=== PATIENT | female | born 1980 | race Caucasian/White ===

== ENCOUNTER → 2018-03-18 15:31 | Outpatient (CLI) | payer BC, SELFPAY ==
[2018-03-18 17:37] LABS: Absolute Lymphocyte Count 1.31 X10^3/ul (0.83-4.51); Absolute Neutrophil Count 3.2 X10^3/uL (2.0-7.7); Basophil# 0.05 X10^3/uL; Basophil% 0.9 % (0-1); Eosinophil# 0.13 X10^3/uL; Eosinophils% 2.4 % (0-5); Hematocrit 41.1 % (37-47); Hemoglobin 13.4 g/dl (12.0-15.0); Lymphocyte # 1.31 X10^3/ul (4.0); Lymphocyte % 24.1 % (19-41); Mean Corp Hgb Conc 32.6 g/gl (32-36); Mean Corpuscular Hgb 29.3 pg (27.0-32.0); Mean Corpuscular Volume 89.7 fL (81-99); Mean Platelet Vol. 12.7 fl (6.2-12.0); Monocyte# 0.74 X10^3/uL; Monocyte% 13.6 % (0-10); Platelet Count 289 K/mm3 (150-450); RBC Distribution Width CV 12.9 % (11.6-14.6); Red Blood Count 4.58 M/mm3 (4.2-5.4); White Blood Count 5.4 K/mm3 (4.4-11.0)
[2018-03-18 17:44] LABS: POSITIVE COUNT NO; POSITIVE DIFFERENTIAL NO; POSITIVE MORPHOLOGY NO
[2018-03-18 18:00] LABS: Vitamin D,25 Hydroxy 37.5 ng/mL (29.95-100.01)
[2018-03-18 18:35] LABS: Anion Gap 8 (5-15); BUN 6 mg/dL (7-18); BUN/Creat Ratio 9.5 RATIO (10-20); Calcium,Total 9.6 mg/dL (8.5-10.1); Chloride 106 mmol/L (98-107); Creatinine, Serum 0.63 mg/dL (0.55-1.02); EST Glomerular Filtration Rate 111 mL/min (>60); Est Glom Filt Rate - Afr Amer 134 mL/min (>60); Glucose 84 mg/dL (74-106); Potassium 4.2 mmol/L (3.5-5.1); Sodium Level 140 mmol/L (136-145); Thyroid Stim Hormone (TSH) 2.61 uIU/mL (0.358-3.74)
== END ==
PROVIDERS: Family Provider Family Medicine; PCP Family Medicine; Visit Provider Family Medicine
DX: E55.9 Vitamin D deficiency, unspecified (principal); F41.0 Panic disorder [episodic paroxysmal anxiety]
CPT/HCPCS: 36415; 80048; 82306; 84443; 85025

== ENCOUNTER → 2018-07-15 | Outpatient (CLI) | payer BC, SELFPAY ==
--- NOTE | 2018-07-15 11:13 | RAD_ITS ---
STUDY: X-RAY CHEST REASON FOR EXAM: Female, 38 years old. Cough TECHNIQUE: PA and lateral views of the chest COMPARISON: None. FINDINGS: The lungs are clear. There are no pleural effusions. There is no pneumothorax. The heart is normal in size. The visualized osseous structures are within normal limits. RAD/Chest PA and Lateral IMPRESSION: No acute thoracic pathology. Electronically Signed: Eb Tello, at 20:45 EDT Tel , Service support ,
== END | disposition home or self-care (01) ==
LOC: MTRAD 11:12
PROVIDERS: Family Provider Family Medicine; PCP Family Medicine; Referring Provider Family Medicine; Visit Provider Family Medicine
DX: R05 Cough (principal)
CPT/HCPCS: 71046

== ENCOUNTER → 2019-07-20 09:04 | Outpatient (CLI) | payer BC, SELFPAY ==
[2019-07-20 10:40] LABS: Vitamin D,25 Hydroxy 26.9 ng/mL
[2019-07-20 10:50] LABS: T4 Free Direct 0.96 ng/dL (0.76-1.46); Thyroid Stim Hormone (TSH) 1.83 uIU/mL (0.358-3.74)
[2019-07-21 21:31] LABS: Anti-Thyroglobulin AB < 1.0 IU/mL (0.0-0.9); Thyroglobulin, Serum Qt. 21.1 ng/mL (1.5-38.5); Thyroid Peroxidase AB < 9 IU/mL (0-34)
== END ==
PROVIDERS: PCP Family Medicine; Referring Provider Family Medicine; Visit Provider Family Medicine
DX: E01.0 Iodine-deficiency related diffuse (endemic) goiter (principal); E55.9 Vitamin D deficiency, unspecified
CPT/HCPCS: 36415; 82306; 84432; 84439; 84443; 86376; 86800

== ENCOUNTER → 2019-08-01 09:17 | Outpatient (CLI) | payer BC, SELFPAY ==
--- NOTE | 2019-08-01 09:23 | US_ITS ---
STUDY: THYROID ULTRASOUND REASON FOR EXAM: Female, 39 years old. THYROMEGALY TECHNIQUE: Ultrasound evaluation of the thyroid was performed with real-time and static fuentes-scale imaging. COMPARISON: None. FINDINGS: RIGHT LOBE: The right lobe of the thyroid gland measures 4.6 cm x 1.6 cm x 1.6 cm. There is a homogeneous echotexture. There is a 7 mm x 6 mm x 6 mm hypoechoic nodule in the posterior upper pole of the right lobe. LEFT LOBE: The left lobe of the thyroid gland measures 4.7 cm x 1.7 cm x 1.4 cm. There is a homogeneous echotexture. There are no demonstrated solid, cystic or complex lesions. ISTHMUS: The isthmus measures 2.0 mm. The regional lymph nodes are normal. US/Thyroid IMPRESSION: 7 mm x 6 mm x 6 mm hypoechoic nodule in the posterior upper pole of the right lobe of the thyroid. Electronically Signed: Darrin Stanton, at 14:31 EDT , Service support ,
== END ==
PROVIDERS: PCP Family Medicine; Referring Provider Family Medicine; Visit Provider Family Medicine
DX: E01.0 Iodine-deficiency related diffuse (endemic) goiter (principal)
CPT/HCPCS: 76536

== ENCOUNTER → 2020-05-15 10:49 | Outpatient (CLI) | payer BC, SELFPAY ==
[2020-05-15 12:32] LABS: Vitamin D,25 Hydroxy 59.8 ng/mL
== END ==
PROVIDERS: PCP Family Medicine; Visit Provider Family Medicine
DX: E55.9 Vitamin D deficiency, unspecified (principal)
CPT/HCPCS: 36415; 82306

== ENCOUNTER → 2020-12-07 12:27 | Outpatient (CLI) | payer BC, SELFPAY ==
--- NOTE | 2020-12-07 12:29 | BI_ITS ---
MAMMOGRAPHY - BILATERAL SCREENING REASON FOR EXAM: Female, 40 years old. Routine annual screening examination. PERTINENT HISTORY: Non-contributory. TECHNIQUE: Digital bilateral breast aditya (3D mammographic acquisition) in the CC and MLO projections. 2-D mediolateral oblique (MLO) and craniocaudad (CC) views of both breasts were obtained. CAD: Full Field Digital Mammography with Computer Added Detection was performed. COMPARISON: Comparison is made with prior outside examination dated 08/22/2019. FINDINGS: Breast Composition: The breasts are extremely dense, which lowers the sensitivity of mammography. There are no dominant masses or suspicious calcifications. No other significant abnormalities are identified. There has been no significant change since the prior study. BI/SCRN MAMM (CAD)W/ADITYA BILAT IMPRESSION: Stable bilateral screening mammogram. Yearly follow-up mammogram recommended. (A) ASSESSMENT CATEGORY: BIRADS Category 1: Negative. A letter regarding these results will be sent to the patient by the facility within 30 days. Approximately 10% of breast cancers are not detected by mammography. A normal mammogram should not delay biopsy of a clinically suspicious abnormality. [id number] Electronically Signed: Darrin Stanton MD at 13:58 EDT , Service support ,
== END ==
PROVIDERS: PCP Family Medicine; Referring Provider Family Medicine; Visit Provider Family Medicine
DX: Z12.31 Encounter for screening mammogram for malignant neoplasm of breast (principal)
CPT/HCPCS: 77063; 77067

== ENCOUNTER 2021-05-14 11:41 | Outpatient (CLI) | payer BC, SELFPAY ==
[2021-05-14 15:33] LABS: Vitamin D,25 Hydroxy 67.6 ng/mL
[2021-05-14 15:44] LABS: ALB/GLOB Ratio 1.1 RATIO (0.9-2.4); AST(SGOT) 14 U/L (15-37); Alanine Aminotransfer ALT/SGPT 20 U/L (13-56); Albumin, Serum 4.2 g/dL (3.2-5.0); Alkaline Phosphatase 49 U/L (45-117); Anion Gap 6 (5-15); BUN 14 mg/dL (7-18); BUN/Creat Ratio 19.4 RATIO (10-20); Calcium,Total 8.8 mg/dL (8.5-10.1); Chloride 104 mmol/L (98-107); Creatinine, Serum 0.72 mg/dL (0.55-1.02); EST Glomerular Filtration Rate 94 mL/min (>60); Est Glom Filt Rate - Afr Amer 114 mL/min (>60); Globulin 3.7 g/dL (2.2-4.2); Glucose 90 mg/dL (74-106); Potassium 3.7 mmol/L (3.5-5.1); Protein, Total 7.9 g/dL (6.4-8.2); Sodium Level 135 mmol/L (136-145); Thyroid Stim Hormone (TSH) 2.01 uIU/mL (0.358-3.74)
== END 2021-05-14 23:59 | disposition home or self-care (01) ==
PROVIDERS: PCP Family Medicine; Referring Provider Family Medicine; Visit Provider Family Medicine
DX: E55.9 Vitamin D deficiency, unspecified (principal); F41.1 Generalized anxiety disorder
CPT/HCPCS: 36415; 80053; 82306; 84443

== ENCOUNTER → 2021-12-11 | Outpatient (CLI) | payer BC, SELFPAY ==
--- NOTE | 2021-12-11 12:16 | US_ITS ---
STUDY: THYROID ULTRASOUND REASON FOR EXAM: Female, 41 years old. Known nodule TECHNIQUE: Ultrasound evaluation of the thyroid was performed with real-time and static fuentes-scale imaging. COMPARISON: 08/01/2019 FINDINGS: RIGHT LOBE: The right lobe of the thyroid gland measures 4.8 x 1.4 x 1.5 cm. There is a homogeneous echotexture. There is a stable 0.7 x 0.6 x 0.6 cm solid nodule and a new solid 0.4 x 0.2 x 0.4 cm nodule. LEFT LOBE: The left lobe of the thyroid gland measures 4.4 x 1.4 x 1.1 cm. There is a homogeneous echotexture. New solid nodules noted in the left lobe larger measures 0.3 x 0.3 x 0.2 cm. ISTHMUS: The isthmus measures 2.4 mm. The regional lymph nodes are normal. US/Thyroid IMPRESSION: Borderline enlarged right lobe of the thyroid gland. Bilateral subcentimeter solid nodules are noted, some are new since the previous study but are too small to sample or determine activity. A six-month follow-up ultrasound is recommended to assess stability. Electronically Signed: Cristhian Chavez MD at 13:17 EDT ,
--- NOTE | 2021-12-11 12:16 | BI_ITS ---
MAMMOGRAPHY - BILATERAL SCREENING 3-D TOMOSYNTHESIS REASON FOR EXAM: Female, 41 years old. SCREENING PERTINENT HISTORY: No significant family history. TECHNIQUE: 2-D mammograms and 3-D Tomosynthesis of the breast (s) were performed. CAD was performed. COMPARISON: 12/07/2020 FINDINGS: The breast composition is heterogeneously dense that can obscure small breast masses. Scattered benign calcifications are seen. No dense spiculated masses or suspicious microcalcifications are identified. No architectural distortion is identified. There is no skin thickening or retraction. There has been no significant change since the prior study. BI/SCRN MAMM (CAD)W/ADITYA BILAT IMPRESSION: No mammographic signs of malignancy. Routine yearly mammograms recommended. ASSESSMENT CATEGORY: BIRADS Category 2: Benign. A letter regarding these results will be sent to the patient by the facility within 30 days. FOLLOW UP RECOMMENDATION: Yearly follow up mammogram recommended. (A) Approximately 10% of breast cancers are not detected by mammography. A normal mammogram should not delay biopsy of a clinically suspicious abnormality. Electronically Signed: Cristhian Chavez MD at 12:56 EDT ,
== END | disposition home or self-care (01) ==
LOC: OPBI 12:11
PROVIDERS: PCP Family Medicine; Visit Provider Family Medicine
DX: Z12.31 Encounter for screening mammogram for malignant neoplasm of breast (principal); E04.1 Nontoxic single thyroid nodule
CPT/HCPCS: 76536; 77063; 77067

== ENCOUNTER → 2022-05-27 | Outpatient (CLI) | payer BC, SELFPAY ==
[2022-05-27 12:54] LABS: ALB/GLOB Ratio 1.1 RATIO (0.9-2.4); AST(SGOT) 13 U/L (15-37); Alanine Aminotransfer ALT/SGPT 17 U/L (13-56); Albumin, Serum 3.9 g/dL (3.2-5.0); Alkaline Phosphatase 48 U/L (45-117); Anion Gap 6 (5-15); BUN 13 mg/dL (7-18); BUN/Creat Ratio 17.8 RATIO (10-20); Calcium,Total 8.9 mg/dL (8.5-10.1); Chloride 106 mmol/L (98-107); Creatinine, Serum 0.73 mg/dL (0.55-1.02); EST Glomerular Filtration Rate 92 mL/min (>60); Est Glom Filt Rate - Afr Amer 111 mL/min (>60); Globulin 3.7 g/dL (2.2-4.2); Glucose 92 mg/dL (74-106); Potassium 3.8 mmol/L (3.5-5.1); Protein, Total 7.6 g/dL (6.4-8.2); Sodium Level 138 mmol/L (136-145)
[2022-05-27 12:58] LABS: Vitamin D,25 Hydroxy 66.2 ng/mL
== END | disposition home or self-care (01) ==
LOC: MFPLAB 09:43
PROVIDERS: PCP Family Medicine; Referring Provider Family Medicine; Visit Provider Family Medicine
DX: E55.9 Vitamin D deficiency, unspecified (principal)
CPT/HCPCS: 36415; 80053; 82306

== ENCOUNTER → 2022-12-03 | Outpatient (CLI) | payer BC, SELFPAY ==
[2022-12-03 10:50] LABS: Cholesterol 131 mg/dL (200); High Density Lipoprotein 46 mg/dL; Triglycerides 105 mg/dL; Very Low Density Lipoprotein 21 mg/dL (5-40)
== END | disposition home or self-care (01) ==
PROVIDERS: PCP Family Medicine; Visit Provider Nurse Practitioner Family
DX: Z13.220 Encounter for screening for lipoid disorders (principal)
CPT/HCPCS: 36415; 80061

== ENCOUNTER → 2022-12-23 | Outpatient (CLI) | payer BC, SELFPAY ==
--- NOTE | 2022-12-23 12:17 | US_ITS ---
STUDY: THYROID ULTRASOUND REASON FOR EXAM: Female, 42 years old. nodules, follow up 11/2021 TECHNIQUE: Ultrasound evaluation of the thyroid was performed with real-time and static fuentes-scale imaging. COMPARISON: 12/11/2021 FINDINGS: RIGHT LOBE: The right lobe of the thyroid gland measures 4.3 x 1.6 x 1.2 cm. There is a homogeneous echotexture. Nodule 1: No change in the 8 x 5 x 7 mm solid hypoechoic wider than tall smoothly marginated nodule with no echogenic foci (TR 4) in the posterior right lobe consistent with a small adenoma. LEFT LOBE: The left lobe of the thyroid gland measures 4.5 x 1.3 x 1.2 cm. There is a homogeneous echotexture. Some tiny (less than 5 mm) hypoechoic nodules consistent with adenomas or colloid cyst. ISTHMUS: The isthmus measures 1 mm thick. . The regional lymph nodes are normal. US/Thyroid IMPRESSION: No change in multinodular thyroid gland. Electronically Signed: Joaquin Miller MD at 20:48 EDT ,
--- NOTE | 2022-12-23 12:17 | BI_ITS ---
MAMMOGRAPHY - BILATERAL SCREENING REASON FOR EXAM: Female, 42 years old. Routine annual screening examination. PERTINENT HISTORY: Non-contributory. TECHNIQUE: Digital bilateral breast aditya (3D mammographic acquisition) in the CC and MLO projections. 2-D mediolateral oblique (MLO) and craniocaudad (CC) views of both breasts were obtained. CAD: Full Field Digital Mammography with Computer Added Detection was performed. COMPARISON: Comparison is made with prior study dated December 11, 2021 and December 07, 2020. FINDINGS: Breast Composition: The breasts are extremely dense, which lowers the sensitivity of mammography. There are no dominant masses or suspicious calcifications. No other significant abnormalities are identified. There has been no significant change since the prior study. BI/SCRN MAMM (CAD)W/ADITYA BILAT IMPRESSION: Stable bilateral screening mammogram. Yearly follow-up mammogram recommended. (A) ASSESSMENT CATEGORY: BIRADS Category 1: Negative. A letter regarding these results will be sent to the patient by the facility within 30 days. Approximately 10% of breast cancers are not detected by mammography. A normal mammogram should not delay biopsy of a clinically suspicious abnormality. [id number] Electronically Signed: Darrin Stanton MD at 13:37 EDT ,
== END | disposition home or self-care (01) ==
PROVIDERS: PCP Family Medicine; Referring Provider Nurse Practitioner Family; Visit Provider Nurse Practitioner Family
DX: Z12.31 Encounter for screening mammogram for malignant neoplasm of breast (principal); E04.1 Nontoxic single thyroid nodule
CPT/HCPCS: 76536; 77063; 77067

== ENCOUNTER → 2023-06-04 | Outpatient (CLI) | payer BC, SELFPAY ==
[2023-06-04 11:14] LABS: ALB/GLOB Ratio 1.1 RATIO (0.9-2.4); AST(SGOT) 10 U/L (15-37); Alanine Aminotransfer ALT/SGPT 14 U/L (13-56); Albumin, Serum 3.8 g/dL (3.2-5.0); Alkaline Phosphatase 50 U/L (45-117); Anion Gap 5 (5-15); BUN 12 mg/dL (7-18); BUN/Creat Ratio 15.5 RATIO (10-20); Calcium,Total 8.7 mg/dL (8.5-10.1); Chloride 106 mmol/L (98-107); Creatinine, Serum 0.78 mg/dL (0.55-1.02); EST Glomerular Filtration Rate 86 mL/min (>60); Est Glom Filt Rate - Afr Amer 104 mL/min (>60); Globulin 3.5 g/dL (2.2-4.2); Glucose 89 mg/dL (74-106); Potassium 3.8 mmol/L (3.5-5.1); Protein, Total 7.3 g/dL (6.4-8.2); Sodium Level 137 mmol/L (136-145)
[2023-06-04 11:39] LABS: Vitamin D,25 Hydroxy 39.6 ng/mL
== END | disposition home or self-care (01) ==
LOC: MFPLAB 09:09
PROVIDERS: PCP Family Medicine; Visit Provider Family Medicine
DX: E55.9 Vitamin D deficiency, unspecified (principal)
CPT/HCPCS: 36415; 80053; 82306

== ENCOUNTER → 2023-06-16 | Outpatient (CLI) | payer BC, SELFPAY ==
--- NOTE | 2023-06-16 12:44 | US_ITS ---
STUDY: THYROID ULTRASOUND REASON FOR EXAM: Female, 43 years old. Known nodules TECHNIQUE: Ultrasound evaluation of the thyroid was performed with real-time and static fuentes-scale imaging. COMPARISON: 12/11/2021 FINDINGS: RIGHT LOBE: The right lobe of the thyroid gland measures 4.4 x 1.2 x 1.5 cm. There is a homogeneous echotexture. Multiple stable hypoechoic solid nodules unchanged from the previous study. Largest 2 measure 0.8 and 0.5 cm. LEFT LOBE: The left lobe of the thyroid gland measures 4.3 x 1.3 x 1.1 cm. There is a homogeneous echotexture. Multiple stable hypoechoic solid nodules largest measures 0.3 cm. ISTHMUS: The isthmus measures 0.09 cm. The regional lymph nodes are normal. US/Thyroid IMPRESSION: Stable homogeneous nodule with bilateral subcentimeter well-defined nodules unchanged dating back to 2019. Nodules are solid or almost completely solid, hypoechoic, [id number], smoothly marginated and contains no echogenic foci. TI-RADS points: 4. TI-RADS category: TR4. Nodules are moderately suspicious but no FNA or follow-up is necessary given the small size of the nodules. Electronically Signed: Cristhian Chavez MD at 14:18 EDT ,
== END | disposition home or self-care (01) ==
PROVIDERS: PCP Family Medicine; Referring Provider Family Medicine; Visit Provider Family Medicine
DX: E04.1 Nontoxic single thyroid nodule (principal)
CPT/HCPCS: 76536

== ENCOUNTER → 2024-01-19 | Outpatient (CLI) | payer BC, SELFPAY ==
--- NOTE | 2024-01-19 07:27 | BI_ITS ---
MAMMOGRAPHY - BILATERAL SCREENING 3-D TOMOSYNTHESIS REASON FOR EXAM: Female, 43 years old. SCREENING PERTINENT HISTORY: No significant family history. TECHNIQUE: 2-D mammograms and 3-D Tomosynthesis of the breast (s) were performed. CAD was performed. COMPARISON: 12/23/2022 FINDINGS: The breast composition is Extermely dense tissue. Scattered benign calcifications are seen. No dense spiculated masses or suspicious microcalcifications are identified. No architectural distortion is identified. There is no skin thickening or retraction. There has been no significant change since the prior study. BI/SCREENING MAMM (CAD), BILAT IMPRESSION: No mammographic signs of malignancy. Routine yearly mammograms recommended. ASSESSMENT CATEGORY: BIRADS Category 1: Negative. A letter regarding these results will be sent to the patient by the facility within 30 days. FOLLOW UP RECOMMENDATION: Yearly follow up mammogram recommended. (A) Approximately 10% of breast cancers are not detected by mammography. A normal mammogram should not delay biopsy of a clinically suspicious abnormality. Electronically Signed: Joaquin Miller MD at 15:41 EST ,
== END | disposition home or self-care (01) ==
LOC: OPBI 07:27
PROVIDERS: PCP Family Medicine; Referring Provider Nurse Practitioner Family; Visit Provider Nurse Practitioner Family
DX: Z12.31 Encounter for screening mammogram for malignant neoplasm of breast (principal)
CPT/HCPCS: 77067

== ENCOUNTER → 2024-04-28 | Outpatient (CLI) | payer BC, SELFPAY ==
[2024-04-28 19:05] LABS: Vitamin D,25 Hydroxy 34.2 ng/mL (30-100)
[2024-04-28 19:22] LABS: ALB/GLOB Ratio 1.4 RATIO (0.9-2.4); AST(SGOT) 15 U/L (<=31); Alanine Aminotransfer ALT/SGPT 8 U/L (<=34); Albumin, Serum 4.3 g/dL (3.5-5.0); Alkaline Phosphatase 52 U/L (35-104); Anion Gap 14 (5-15); BUN 9 mg/dL (4-19); BUN/Creat Ratio 12.2 RATIO (10-20); Calcium,Total 9.1 mg/dL (7.6-11.0); Carbon Dioxide 20.3 mmol/L (21.0-32.0); Chloride 102 mmol/L (98-108); Creatinine, Serum 0.72 mg/dL (0.70-1.20); EST Glomerular Filtration Rate 105 (>60); Glucose 87 mg/dL (70-99); Protein, Total 7.3 g/dL (5.9-8.4); Sodium Level 136 mmol/L (133-145); Total Bilirubin 0.57 mg/dL (0.00-1.30)
== END | disposition home or self-care (01) ==
LOC: MFPLAB 15:39
PROVIDERS: PCP Family Medicine; Referring Provider Family Medicine; Visit Provider Family Medicine
DX: E55.9 Vitamin D deficiency, unspecified (principal)
CPT/HCPCS: 36415; 80053; 82306

== ENCOUNTER 2024-08-30 14:27 | Observation (INO) | payer BC, SELFPAY ==
[2024-08-30] VITALS (16 sets, daily range): BP systolic 101–153; BP diastolic 58–81; PULSE 70–118; RESP 15–20; TEMP 36.2–37.7; O2SAT 95–100; BMI 25.0
--- NOTE | 2024-08-30 15:30 | EX.ED.DYSGE1 ---
HPI History of Present Illness Chief Complaint: Abn Labs Narrative Narrative: C chief complaint and HPI: Anemia. 44-year-old female with past medical history of iron deficiency anemia presents for evaluation of anemia. Patient states she had a routine blood work performed in which she was found to have a hemoglobin of 5.5. She states that she was sent to the emergency department. She states she has not taken her iron pills for 1 week. Patient endorses heavy menstrual cycles for several years. They are regular when she has them monthly. States her last menstrual cycle ended about a week ago. She denies any lightheadedness, headache, fatigue, paleness, abdominal pain, nausea, vomiting, bloody bowel movements. She has never had a colonoscopy. She denies any daily NSAID use. Denies any alcohol abuse. No history of ulcers. Review of systems: See HPI Medications: As listed on the chart Allergies: As listed on the chart PFSH: Per chart Vital signs: As listed on the chart. Reviewed. Physical exam: Gen: A&O x3, NAD Head: Normocephalic, atraumatic Eyes: No sclera icterus, conjunctiva clear ENT: Moist mucous membranes Neck: Trachea midline, No JVD CV: RRR, no murmurs, no peripheral edema Resp: Lungs CTA BL, no w/r/c GI: Abd soft, non-distended, non-tender, no r/r/g Rectal: Nonthrombosed external hemorrhoids. Normal tone and sensation. No masses, fluctuance, or tenderness. No pain out of proportion. Stool is brown on the gloved finger. Musc: Full ROM, no deformity Skin: Warm, dry, pale Neuro: Alert, oriented, grossly intact, sensation intact Psych: Cooperative, appropriate mood and affect PFSH PFSH Medical History no medical history Home Medications ?Medication ?Instructions ?Recorded ?Last Taken ?Type cholecalciferol (vitamin D3) 100 100 mcg PO DAILY 08/30/24 Unknown History mcg (4,000 unit) capsule escitalopram oxalate 20 mg tablet 20 mg PO DAILY 08/30/24 Unknown History ropinirole 0.5 mg tablet 1 mg PO QHS 08/30/24 Unknown History Allergy/AdvReac Type Severity Reaction Status Date / Time codeine Allergy PT UNSURE Verified 08/30/24 14:28 OF REACTION Family History no significant family his Surgical History no surgical history Social History Smoking Status: Never smoker EXAM Physical Exam Const Vital Signs: 08/30/24 14:29 08/30/24 15:28 08/30/24 16:00 Temperature 97.1 F L Temperature Source Temporal Pulse Rate 118 H 81 70 Respiratory Rate 18 15 16 Blood Pressure 153/58 H 121/75 H 131/74 H Blood Pressure Mean 89 90 93 Blood Pressure Source Blood Pressure Position Blood Pressure Location Pulse Ox 100 95 100 Oxygen Delivery Method Room Air Room Air Room Air 08/30/24 16:54 08/30/24 16:59 08/30/24 17:00 Temperature 98.3 F 98.3 F Temperature Source Oral Oral Pulse Rate 84 77 Respiratory Rate 20 H 15 Blood Pressure 122/72 H 125/81 H 125/81 H Blood Pressure Mean 88 95 95 Blood Pressure Source Monitor Monitor Blood Pressure Position Semi-Fowlers Semi-Fowlers Blood Pressure Location Right Arm Right Arm Pulse Ox 100 100 Oxygen Delivery Method Room Air Room Air 08/30/24 17:14 08/30/24 18:00 08/30/24 18:01 Temperature 98.6 F 98.6 F Temperature Source Oral Pulse Rate 73 73 Respiratory Rate 18 16 Blood Pressure 101/70 119/77 119/77 Blood Pressure Mean 80 91 91 Blood Pressure Source Monitor Blood Pressure Position Semi-Fowlers Blood Pressure Location Right Arm Pulse Ox 100 100 Oxygen Delivery Method Room Air 08/30/24 18:11 08/30/24 18:14 08/30/24 18:32 Temperature 98.3 F 98.3 F 98.3 F Temperature Source Oral Oral Oral Pulse Rate 73 73 Respiratory Rate 18 17 Blood Pressure 119/77 119/77 Blood Pressure Mean 91 91 Blood Pressure Source Monitor Monitor Blood Pressure Position Semi-Fowlers Semi-Fowlers Blood Pressure Location Right Arm Left Arm Pulse Ox 100 100 Oxygen Delivery Method Room Air Room Air 08/30/24 18:47 08/30/24 18:53 Temperature 98.5 F Temperature Source Oral Pulse Rate 82 Respiratory Rate 17 Blood Pressure 119/77 113/80 Blood Pressure Mean 91 91 Blood Pressure Source Monitor Blood Pressure Position Semi-Fowlers Blood Pressure Location Right Arm Pulse Ox 100 Oxygen Delivery Method Room Air MDM MDM MDM Narrative Medical decision making narrative: 44-year-old female with past medical history of iron deficiency anemia presents for evaluation of anemia. Patient states she had a routine blood work performed in which she was found to have a hemoglobin of 5.5. She states she has not taken her iron pills for 1 week. Patient endorses heavy menstrual cycles for several years. Asymptomatic from the anemia. Differential diagnosis includes but is not limited to iron deficiency anemia, GI bleed. Basic labs ordered including iron studies and stool occult. CBC without leukocytosis. Patient has anemia with hemoglobin 9.9, up trending from 5.5. Platelet count unremarkable. Patient's MCV is low which is concerning for an iron deficiency anemia. BMP relatively unremarkable. Patient will warrant 2 units of packed RBCs. She consented. On chart review, patient has severe iron deficiency anemia. With an iron level of 9. Her stool occult is negative. She will warrant admission with further iron deficiency workup and possible iron transfusion. She confirmed understand the plan. Patient mated to the hospitalist service. Impression: 1. Severe anemia requiring blood transfusions 2. Severe iron deficiency anemia Lab Data Labs: Laboratory Results - last 24 hr 08/30/24 14:47 WBC 5.0 RBC 3.45 L Hgb 5.9 L* Hct 23.1 L MCV 67.0 L MCH 17.1 L MCHC 25.5 L RDW Std Deviation 44.3 H RDW Coeff of Aristides 18.8 H Plt Count 204 MPV TNP Immature Gran % (Auto) 0.400 Neut % (Auto) 61.1 Lymph % (Auto) 22.6 Calhoun % (Auto) 12.7 H Eos % (Auto) 2.2 Baso % (Auto) 1.0 Absolute Neuts (auto) 3.0 Absolute Lymphs (auto) 1.12 Nucleated RBC % 0 Sodium 139 Potassium 3.8 Chloride 106 Carbon Dioxide 19.2 L Anion Gap 13 BUN 8 Creatinine 0.66 L Estim Creat Clear Calc 99.69 Est GFR (MDRD) Non-Af 109 BUN/Creatinine Ratio 12.8 Glucose 97 Calcium 9.2 Blood Type O POSITIVE Antibody Screen NEGATIVE Crossmatch See Detail Discharge Plan Triage Chief Complaint: Abn Labs ED Provider: Joselito Maldonado Dx/Rx/DC Orders Prescriptions: No Action ropinirole 0.5 mg tablet 1 mg PO QHS escitalopram oxalate 20 mg tablet 20 mg PO DAILY cholecalciferol (vitamin D3) 100 mcg (4,000 unit) capsule 100 mcg PO DAILY Primary Care Provider: Inocencio Frye Referrals: Inocencio Frye MD [Primary Care Provider] - Print Language: Uzbek
[2024-08-30 15:50] LABS: Hematocrit 23.1 % (37-47); Immature Granulocytes Count 0.020 X10^3/uL (0.0-0.0); Mean Corp Hgb Conc 25.5 g/dL (32-36); Mean Corpuscular Volume 67.0 fL (81-99); NRBC Flagged by Analyzer 0 % (0-5); POSITIVE COUNT YES; Platelet Count 204 K/mm3 (150-450); RBC Distribution Width CV 18.8 % (11.6-14.6); RBC Distribution Width SD 44.3 fl (35.1-43.9); Red Blood Count 3.45 M/mm3 (4.2-5.4); White Blood Count 5.0 K/mm3 (4.4-11.0)
[2024-08-30 16:02] LABS: Hemoglobin 5.9 g/dL (12.0-15.0)
[2024-08-30 16:29] LABS: Anion Gap 13 (5-15); BUN 8 mg/dL (4-19); BUN/Creat Ratio 12.8 RATIO (10-20); Calcium,Total 9.2 mg/dL (7.6-11.0); Carbon Dioxide 19.2 mmol/L (21.0-32.0); Chloride 106 mmol/L (98-108); Estimated Creatinine Clearance 99.69 ml/min (50-250); Glucose 97 mg/dL (70-99); Potassium 3.8 mmol/L (3.3-5.1)
--- NOTE | 2024-08-30 18:52 | PCM.HP.STD ---
HPI - General General Date of Admission: 08/30/24 Date of Service: 08/30/24 Chief Complaint: Abnormal lab, severe anemia sent by PCP HPI Narrative GALINDO JOHNSTON, is a 44 F with history of chronic iron deficiency anemia from menometrorrhagia was sent to ED by PCP for low hemoglobin 5.5 g%. Patient has history of chronic anemia due to abnormal menstrual period. She gets frequent iron infusion. She denies GI bleed including hematemesis melena, hematochezia or hemoptysis or external bleeding. She said she had last menstrual period lasted for 6 to 7 days out of which first 2 days were very heavy. She finished her last menstrual period about 5 to 7 days ago She had abnormal periods/menorrhagia during her younger days and then became irregular. She started having irregular heavy menstrual period from last 2 to 3 years. In ED, 2 units of PRBC ordered and patient is second unit of PRBC transfusion. She does not have symptoms of anemia including dyspnea on exertion, dizziness, lightheadedness, palpitation, near-syncope or syncope. No chest pain pressure or tightness In ED when she first came in she was tachycardic 118/min but later on vitals including heart rate became normal [facility] Medical History Anxiety Former smoker Medical History no medical history Home Medications ?Medication ?Instructions ?Recorded ?Last Taken ?Type cholecalciferol (vitamin D3) 100 100 mcg PO DAILY 08/30/24 Unknown History mcg (4,000 unit) capsule escitalopram oxalate 20 mg tablet 20 mg PO DAILY 08/30/24 Unknown History ropinirole 0.5 mg tablet 1 mg PO QHS 08/30/24 Unknown History Allergy/AdvReac Type Severity Reaction Status Date / Time codeine Allergy PT UNSURE Verified 08/30/24 14:28 OF REACTION Family History no significant family his Surgical History no surgical history Social History Smoking Status: Never smoker ROS ROS Narrative Constitutional: Reports no acute fatigue and weakness. No fever. HEENT: Reports systems reviewed and no addt'l complaints, except as documented Respiratory/Chest: No acute shortness of breath or respiratory distress or wheezing. CVS: No chest pressure or tightness. Gastrointestinal: Denies coffee ground emesis, hematemesis or vomiting Genitourinary: Irregular menstrual period. Denies burning urination or new urinary tract symptoms Musculoskeletal: Denies acute joint pain or limited range of motion. No acute injury Neurologic: Denies seizure-like symptoms. skin: No ulcer. No rash Endocrinology: Reports systems reviewed and no addt'l complaints, except as documented Hematologic/Lymphatic: Reports systems reviewed and no addt'l complaints, except as documented Rest 14 ROS are negative except as mentioned in HPI Vital Signs Vital Signs Vital Signs: 08/30/24 14:29 08/30/24 15:28 08/30/24 16:00 Temperature 97.1 F L Temperature Source Temporal Pulse Rate 118 H 81 70 Respiratory Rate 18 15 16 Blood Pressure 153/58 H 121/75 H 131/74 H Blood Pressure Mean 89 90 93 Blood Pressure Source Blood Pressure Position Blood Pressure Location Pulse Ox 100 95 100 Oxygen Delivery Method Room Air Room Air Room Air 08/30/24 16:54 08/30/24 16:59 08/30/24 17:00 Temperature 98.3 F 98.3 F Temperature Source Oral Oral Pulse Rate 84 77 Respiratory Rate 20 H 15 Blood Pressure 122/72 H 125/81 H 125/81 H Blood Pressure Mean 88 95 95 Blood Pressure Source Monitor Monitor Blood Pressure Position Semi-Fowlers Semi-Fowlers Blood Pressure Location Right Arm Right Arm Pulse Ox 100 100 Oxygen Delivery Method Room Air Room Air 08/30/24 17:14 08/30/24 18:00 08/30/24 18:01 Temperature 98.6 F 98.6 F Temperature Source Oral Pulse Rate 73 73 Respiratory Rate 18 16 Blood Pressure 101/70 119/77 119/77 Blood Pressure Mean 80 91 91 Blood Pressure Source Monitor Blood Pressure Position Semi-Fowlers Blood Pressure Location Right Arm Pulse Ox 100 100 Oxygen Delivery Method Room Air 08/30/24 18:11 08/30/24 18:14 08/30/24 18:32 Temperature 98.3 F 98.3 F 98.3 F Temperature Source Oral Oral Oral Pulse Rate 73 73 Respiratory Rate 18 17 Blood Pressure 119/77 119/77 Blood Pressure Mean 91 91 Blood Pressure Source Monitor Monitor Blood Pressure Position Semi-Fowlers Semi-Fowlers Blood Pressure Location Right Arm Left Arm Pulse Ox 100 100 Oxygen Delivery Method Room Air Room Air 08/30/24 18:47 Temperature 98.5 F Temperature Source Oral Pulse Rate 82 Respiratory Rate 17 Blood Pressure 119/77 Blood Pressure Mean 91 Blood Pressure Source Monitor Blood Pressure Position Semi-Fowlers Blood Pressure Location Right Arm Pulse Ox 100 Oxygen Delivery Method Room Air Weight Weight: 145 lb 14.4 oz Body Mass Index (BMI) 25.0 Physical Exam Narrative General: Alert, Oriented x3, Cooperative HEENT: Atraumatic, PERRLA, EOMI, Normocephalic. Oral: No Gingival or Mucosal Lesions/ Ulcerations Neck: Supple, No JVD, Negative Carotid Bruits Chest wall/Lungs: Air entry diminished in bilateral lung bases. No crepitation/rhonchi Cardiovascular: Regular rate and rhythm, Normal S1,S2, No M/G/R Abdomen: Bowel Sounds Present, Soft, Non Tender, Non-Distended : No dysuria. No renal angle tenderness. No suprapubic tenderness. Extremities: No edema, Capillary Refill Less than 3 Seconds Skin: No rashes, No breakdown Musculoskeletal: No Tenderness to Palpation of Joints or Extremities Neurological: Cranial nerves II-XII grossly intact, DTR 2+/4. No acute focal neurological deficit. Psych/Mental Status: Normal Affect, Appropriate. Results Lab / Micro Data 08/30/24 14:47 08/30/24 14:47 Labs: Laboratory Results - last 24 hr 08/30/24 14:47: WBC 5.0, RBC 3.45 L, Hgb 5.9 L*, Hct 23.1 L, MCV 67.0 L, MCH 17.1 L, MCHC 25.5 L, RDW Std Deviation 44.3 H, RDW Coeff of Aristides 18.8 H, Plt Count 204, MPV TNP, Immature Gran % (Auto) 0.400, Neut % (Auto) 61.1, Lymph % (Auto) 22.6, [place] % (Auto) 12.7 H, Eos % (Auto) 2.2, Baso % (Auto) 1.0, Absolute Neuts (auto) 3.0, Absolute Lymphs (auto) 1.12, Nucleated RBC % 0, Sodium 139, Potassium 3.8, Chloride 106, Carbon Dioxide 19.2 L, Anion Gap 13, BUN 8, Creatinine 0.66 L, Estim Creat Clear Calc 99.69, Est GFR (MDRD) Non-Af 109, BUN/Creatinine Ratio 12.8, Glucose 97, Calcium 9.2, Blood Type O POSITIVE, Antibody Screen NEGATIVE, Crossmatch See Detail Micro: Microbiology 08/30/24 15:46 Stool Stool Occult Blood (MOJGAN) - Final Assessment & Plan Assessment/Plan (1) Acute blood loss anemia: (2) Iron deficiency anemia: PLAN: Plan This 44-year-old female is being admitted for severe anemia most likely due to menometrorrhagia 1. Acute anemia of blood loss due to menometrorrhagia, Asymptomatic: Patient is being admitted in PCU as an observation. She is currently on secondary her PRBC transfusion. H&H after second of PRBC. 1 iron infusion ordered for tomorrow a.m. Monitor vitals. She recently has changed STAFFING DIRECTOR to Dr. Mckinney but has not seen her yet. Her previous STAFFING DIRECTOR wanted to put on hormonal pills but states that she already had tubal ligation and did not want hormonal supplement. I think she needs urgent GI visit as an outpatient to rule out endometrial hyperplasia or other causes of perimenopausal vaginal bleeding 2. Chronic iron deficiency anemia: The patient further said that she did not take her iron tablet for last 1 week. Patient will need to be discharged on iron supplement and ascorbic acid. She had iron lab work done but results are pending. 3. Mild non-anion gap metabolic acidosis probably due to severe anemia: Bicarb is 19.2, anion gap 13, normal. IV fluid Ringer lactate after blood transfusion. Serum magnesium ordered Other comorbidities include mild anxiety/depression on escitalopram, possible restless leg disease on ropinirole: Patient also on vitamin D3 supplement. Home medications DVT prophylaxis: Moderate risk. Pharmaceutical prophylaxis contraindicated because of severe anemia. Bilateral SCDs Living will/advanced directive/end of life care: Patient does not have living will or advanced directive. Her in the ED is next to kin. She does not have designated power of civil rights attorney for health. After discussion of benefits/risks procedures involved with full code, DNR CC arrest and DNR CC, the patient opted for full code. Patient does want artificial life support including intubation, tube feed, ventilator and/chest compression, central venous catheter, vasopressor and DC shock if needed Total time spent in [id number] encounter in discussion of advanced directive 17 minutes. Microbiology Past 72 Hours 08/30/24 15:46 Stool Stool Occult Blood (MOJGAN) - Final Laboratory Results 08/30/24 14:47: WBC 5.0, RBC 3.45 L, Hgb 5.9 L*, Hct 23.1 L, MCV 67.0 L, MCH 17.1 L, MCHC 25.5 L, RDW Std Deviation 44.3 H, RDW Coeff of Aristides 18.8 H, Plt Count 204, MPV TNP, Immature Gran % (Auto) 0.400, Neut % (Auto) 61.1, Lymph % (Auto) 22.6, [place] % (Auto) 12.7 H, Eos % (Auto) 2.2, Baso % (Auto) 1.0, Absolute Neuts (auto) 3.0, Absolute Lymphs (auto) 1.12, Nucleated RBC % 0, Sodium 139, Potassium 3.8, Chloride 106, Carbon Dioxide 19.2 L, Anion Gap 13, BUN 8, Creatinine 0.66 L, Estim Creat Clear Calc 99.69, Est GFR (MDRD) Non-Af 109, BUN/Creatinine Ratio 12.8, Glucose 97, Calcium 9.2, Iron Pending, TIBC Pending, Iron Saturation Pending, Unsaturated IBC Pending, Blood Type O POSITIVE, Antibody Screen NEGATIVE, Crossmatch See Detail Charges/Coding Visit Charges Inpatient E&M: 21047 Init Hosp L3 Procedures Hospitalists Procedures: 48442 Advncd Care Plan 30 Min
[2024-08-30 21:07] LABS: Magnesium 2.2 mg/dL (1.5-2.2)
[2024-08-30] MEDS: Sodium Ferric Gluconat/Sucrose 250 MG in 0.9% Normal Saline (250mL Bag) 250 ML 135 MG IV (21:27)
[2024-08-30] MEDS: 0.9% Saline Lock 10 ML Syringe IV (21:29)
[2024-08-30 22:31] LABS: Hematocrit 26.6 % (37-47); Hemoglobin 7.7 g/dL (12.0-15.0)
[2024-08-30] MEDS: Lactated Ringers 1,000 ML 100 ML IV (23:29)
[2024-08-31 03:14] VITALS: BMI 25.0
[2024-08-31 03:29] VITALS: BP 128/72; PULSE 80; RESP 16; TEMP 36.2; O2SAT 98
--- NOTE | 2024-08-31 07:06 | PN.HOSP_ITS ---
Reason for Visit Reason for Visit: Diagnoses Iron deficiency anemia, unspecified (08/30/24) Acute posthemorrhagic anemia (08/30/24) Objective Data Objective Data Vital Signs: Vital Signs Temp Pulse Resp BP Pulse Ox O2 Del Method 97.2 F L 80 16 128/72 H 98 Room Air 08/31/24 03:29 08/31/24 03:29 08/31/24 03:29 08/31/24 03:29 08/31/24 03:29 08/31/24 03:29 Oxygen Delivery Method Room Air Weight: 145 lb 8.081 oz Body Mass Index (BMI) 25.0 Intake & Output: Intake and Output for Last 24 Hours 08/29/24 08/30/24 08/31/24 23:59 23:59 23:59 Intake Total 1070 / 1070 Balance 1070 / 1070 Lab / Micro Data 08/30/24 22:23 08/30/24 14:47 Labs: Laboratory Results - last 24 hr 08/30/24 14:47: WBC 5.0, RBC 3.45 L, Hgb 5.9 L*, Hct 23.1 L, MCV 67.0 L, MCH 17.1 L, MCHC 25.5 L, RDW Std Deviation 44.3 H, RDW Coeff of Aristides 18.8 H, Plt Count 204, MPV TNP, Immature Gran % (Auto) 0.400, Neut % (Auto) 61.1, Lymph % (Auto) 22.6, [place] % (Auto) 12.7 H, Eos % (Auto) 2.2, Baso % (Auto) 1.0, Absolute Neuts (auto) 3.0, Absolute Lymphs (auto) 1.12, Nucleated RBC % 0, Sodium 139, Potassium 3.8, Chloride 106, Carbon Dioxide 19.2 L, Anion Gap 13, BUN 8, C reatinine 0.66 L, Estim Creat Clear Calc 99.69, Est GFR (MDRD) Non-Af 109, BUN/Creatinine Ratio 12.8, Glucose 97, Calcium 9.2, Magnesium 2.2, Blood Type O POSITIVE, Antibody Screen NEGATIVE, Crossmatch See Detail 08/30/24 22:23: Hgb 7.7 L, Hct 26.6 L Micro: Microbiology 08/30/24 15:46 Stool Stool Occult Blood (MOJGAN) - Final Assessment & Plan Assessment/Plan (1) Acute blood loss anemia: (2) Iron deficiency anemia: PLAN: Plan This 44-year-old female is being admitted for severe anemia most likely due to menometrorrhagia 1. Acute anemia of blood loss due to menometrorrhagia, Asymptomatic: Patient is being admitted in PCU as an observation. She is currently on secondary her PRBC transfusion. H&H after second of PRBC. 1 iron infusion ordered for tomorrow a.m. Monitor vitals. She recently has changed AUTOMOTIVE PROJECT ENGINEER to Dr. Mckinney but has not seen her yet. Her previous AUTOMOTIVE PROJECT ENGINEER wanted to put on hormonal pills but states that she already had tubal ligation and did not want hormonal supplement. I think she needs urgent GI visit as an outpatient to rule out endometrial hyperplasia or other causes of perimenopausal vaginal bleeding 2. Chronic iron deficiency anemia: The patient further said that she did not take her iron tablet for last 1 week. Patient will need to be discharged on iron supplement and ascorbic acid. She had iron lab work done but results are pending. 3. Mild non-anion gap metabolic acidosis probably due to severe anemia: Bicarb is 19.2, anion gap 13, normal. IV fluid Ringer lactate after blood transfusion. Serum magnesium ordered Other comorbidities include mild anxiety/depression on escitalopram, possible restless leg disease on ropinirole: Patient also on vitamin D3 supplement. Home medications DVT prophylaxis: Moderate risk. Pharmaceutical prophylaxis contraindicated because of severe anemia. Bilateral SCDs
--- NOTE | 2024-08-31 07:09 | US_ITS ---
PROCEDURE: TRANSVAGINAL NON- 08/31/2024 REASON FOR EXAM: ABLA, HEAVY CYCLES TECHNIQUE: TRANSVAGINAL NON- COMPARISON: None FINDINGS: LMP: August 14, 2024. Measurements: Uterus: 12.1 cm x 8.5 cm x 8.2 cm with a volume of 442.86 mL. A nabothian cyst is seen. Findings suggestive of a 6.5 cm 6.7 cm 6.5 cm subendometrial fibroid. Endometrial Thickness: Not well visualized. Right Ovary: 3.5 cm x 3.6 cm x with a volume of 12.61 mL. Left Ovary: 3.3 cm x 2.9 cm x 2.4 cm with a volume of 12.01 mL. Uterus: Enlarged uterus. Findings suggestive of a 6.5 cm 6.7 cm 6.5 cm sub endometrial fibroid. Endometrium: Not well visualized as described. Right ovary: 1.8 cm 1.8 cm 1.2 cm resolving cyst. Left ovary: Normal size and echotexture. Other: No large pelvic mass identified. US/Transvaginal Non- IMPRESSION: Findings suggestive of a 6.5 cm 6.7 cm 6.5 cm subendometrial fibroid. Reading Location: [facility]-
[2024-08-31 07:29] LABS: Differential Indicated SCAN CRITERIA MET; Hematocrit 26.2 % (37-47); Hemoglobin 7.5 g/dL (12.0-15.0); Immature Granulocytes Count 0.010 X10^3/uL (0.0-0.0); Mean Corp Hgb Conc 28.6 g/dL (32-36); Mean Corpuscular Volume 69.9 fL (81-99); NRBC Flagged by Analyzer 0 % (0-5); POSITIVE MORPHOLOGY YES; Platelet Count 162 K/mm3 (150-450); RBC Distribution Width CV 20.9 % (11.6-14.6); RBC Distribution Width SD 52.3 fl (35.1-43.9); Red Blood Count 3.75 M/mm3 (4.2-5.4); White Blood Count 4.1 K/mm3 (4.4-11.0)
--- NOTE | 2024-08-31 08:02 | CON.PCM.OB_ITS ---
Assessment & Plan (1) Menorrhagia, premenopausal: (2) Iron deficiency anemia: (3) Acute blood loss anemia: PLAN: Plan plan is to dc to home with progesterone follow up in office for an EMB we discssed extensively the need for hysterectomy due to large fibroid uterus. Due to the fibroid, the anemia, and the 2 prior sections, I recomend robotic approach to limit more blood loss during the surgery and limit OR time. HPI Consult Data Date of Consult: 08/31/24 HPI Narrative HPI Narrative: GALINDO JOHNSTON, is a 44 y/o G2 P 2 (2 sections) who presents to [facility] for iron deficiency anemia. She states that she was feeling fine but her pcp called her after routine blood work was done at his offic and told her to go to the ER. She was given 2 units of PRBCs and IV iron.I was consulted to discuss menorrhagia as being the cause of her anemia. LMP: middle of july- very heavy. uses a super plus tampon every hour medications tried in the past: none Was seeing Dr. Chandra at [facility] until 2021 Last pap: 2021 - nomal per her report previous abnormal pap: none Last mammogram:12/2023- normal h/o abnormal mammogram:no Thyroid studies:pending bleeding disorder: none contraception: tubal ligation colon cancer screening: up to date and done recentlu health maintenance up to date: followed by Dr. Carrillo ultrasound of uterus: FINDINGS: LMP: August 14, 2024. Measurements: Uterus: 12.1 cm x 8.5 cm x 8.2 cm with a volume of 442.86 mL. A nabothian cyst is seen. Findings suggestive of a 6.5 cm 6.7 cm 6.5 cm subendometrial fibroid. Endometrial Thickness: Not well visualized. Right Ovary: 3.5 cm x 3.6 cm x with a volume of 12.61 mL. Left Ovary: 3.3 cm x 2.9 cm x 2.4 cm with a volume of 12.01 mL. Uterus: Enlarged uterus. Findings suggestive of a 6.5 cm 6.7 cm 6.5 cm sub endometrial fibroid. Endometrium: Not well visualized as described. Right ovary: 1.8 cm 1.8 cm 1.2 cm resolving cyst. Left ovary: Normal size and echotexture. Other: No large pelvic mass identified. US/Transvaginal Non- IMPRESSION: Findings suggestive of a 6.5 cm 6.7 cm 6.5 cm subendometrial fibroid. PFSH Medical History Anxiety Former smoker Medical History no medical history Home Medications ?Medication ?Instructions ?Recorded ?Last Taken ?Type cholecalciferol (vitamin D3) 100 100 mcg PO DAILY lori min 08/30/24 Unknown History mcg (4,000 unit) capsule escitalopram oxalate 20 mg tablet 20 mg PO DAILY [facility] 08/30/24 Unknown History ropinirole 0.5 mg tablet 1 mg PO QHS restless legs Unknown History ferrous gluconate 324 mg (38 mg 324 mg PO DAILY 30 day s #30 tabs 08/31/24 Unknown Rx iron) tablet medroxyprogesterone 5 mg tablet 5 mg PO DAILY 30 days #30 tabs 08/31/24 Unknown Rx Allergy/AdvReac Type Severity Reaction Status Date / Time codeine Allergy PT UNSURE Verified 08/30/24 14:28 OF REACTION Family History no significant family his Surgical History no surgical history Social History Smoking Status: Never smoker Vital Signs Vital Signs Vital Signs: 08/30/24 14:29 08/30/24 15:28 08/30/24 16:00 Temperature 97.1 F L Temperature Source Temporal Pulse Rate 118 H 81 70 Respiratory Rate 18 15 16 Respiratory Effort Respiratory Depth Respiratory Pattern Blood Pressure 153/58 H 121/75 H 131/74 H Blood Pressure Mean 89 90 93 Blood Pressure Source Blood Pressure Position Blood Pressure Location Pulse Ox 100 95 100 Oxygen Delivery Method Room Air Room Air Room Air 08/30/24 16:54 08/30/24 16:59 08/30/24 17:00 Temperature 98.3 F 98.3 F Temperature Source Oral Oral Pulse Rate 84 77 Respiratory Rate 20 H 15 Respiratory Effort Respiratory Depth Respiratory Pattern Blood Pressure 122/72 H 125/81 H 125/81 H Blood Pressure Mean 88 95 95 Blood Pressure Source Monitor Monitor Blood Pressure Position Semi-Fowlers Semi-Fowlers Blood Pressure Location Right Arm Right Arm Pulse Ox 100 100 Oxygen Delivery Method Room Air Room Air 08/30/24 17:14 08/30/24 18:00 08/30/24 18:01 Temperature 98.6 F 98.6 F Temperature Source Oral Pulse Rate 73 73 Respiratory Rate 18 16 Respiratory Effort Respiratory Depth Respiratory Pattern Blood Pressure 101/70 119/77 119/77 Blood Pressure Mean 80 91 91 Blood Pressure Source Monitor Blood Pressure Position Semi-Fowlers Blood Pressure Location Right Arm Pulse Ox 100 100 Oxygen Delivery Method Room Air 08/30/24 18:11 08/30/24 18:14 08/30/24 18:32 Temperature 98.3 F 98.3 F 98.3 F Temperature Source Oral Oral Oral Pulse Rate 73 73 Respiratory Rate 18 17 Respiratory Effort Respiratory Depth Respiratory Pattern Blood Pressure 119/77 119/77 Blood Pressure Mean 91 91 Blood Pressure Source Monitor Monitor Blood Pressure Position Semi-Fowlers Semi-Fowlers Blood Pressure Location Right Arm Left Arm Pulse Ox 100 100 Oxygen Delivery Method Room Air Room Air 08/30/24 18:47 08/30/24 18:53 08/30/24 19:47 Temperature 98.5 F 98.2 F Temperature Source Oral Oral Pulse Rate 82 71 Respiratory Rate 17 17 Respiratory Effort Respiratory Depth Respiratory Pattern Blood Pressure 119/77 113/80 125/76 H Blood Pressure Mean 91 91 92 Blood Pressure Source Monitor Monitor Blood Pressure Position Semi-Fowlers Semi-Fowlers Blood Pressure Location Right Arm Right Arm Pulse Ox 100 99 Oxygen Delivery Method Room Air Room Air 08/30/24 21:30 08/30/24 21:32 08/31/24 03:29 Temperature 100 F H 97.2 F L Temperature Source Oral Temporal Pulse Rate 80 80 Respiratory Rate 18 16 Respiratory Effort Normal Non-Labored Respiratory Depth Normal Respiratory Pattern Normal Blood Pressure 127/77 H 128/72 H Blood Pressure Mean 93 90 Blood Pressure Source Monitor Monitor Blood Pressure Position Semi-Fowlers Supine Blood Pressure Location Right Arm Right Arm Pulse Ox 100 98 Oxygen Delivery Method Room Air Room Air Room Air 08/31/24 03:29 Temperature Temperature Source Pulse Rate Respiratory Rate Respiratory Effort Normal Non-Labored Respiratory Depth Normal Respiratory Pattern Normal Blood Pressure Blood Pressure Mean Blood Pressure Source Blood Pressure Position Blood Pressure Location Pulse Ox Oxygen Delivery Method Room Air Weight Weight: 145 lb 8.081 oz Body Mass Index (BMI) 25.0 ROS Constitutional Constitutional: Reports other Details: only feels tired when walking ; Denies fatigue, fever(s), malaise or weakness Cardiovascular Cardiovascular: Denies chest pain, dyspnea, lightheadedness, palpitations or syncope Respiratory/Chest Respiratory/Chest: Denies cough, dyspnea or hemoptysis Gastrointestinal Gastrointestinal: Denies abdominal pain, anorexia, bloating or change in bowel habits Genitourinary Genitourinary: Denies burning urination, dysuria, hematuria or urinary frequency Musculoskeletal Musculoskeletal: Denies back pain or difficulty walking Neurologic Neurologic: Denies confusion, dizziness, headache(s) or numbness Endocrine Endocrinology: Denies cold intolerance, excessive sweating or heat intolerance Hematologic/Lymphatic Hematologic/Lymphatic: Reports anemia, easy bleeding and easy bruising Physical Exam Const alert, oriented x3 and no apparent distress HEENT normocephalic Eyes conjunctivae normal and no scleral icterus Resp normal respiratory effort Cardio regular rate and regular rhythm GI normal to inspection, nondistended, normoactive bowel sounds Extremity normal to inspection, no clubbing, cyanosis or edema and no calf tenderness Skin no rashes or lesions noted Lab / Micro Data 08/31/24 06:52 08/31/24 06:52 Labs: Laboratory Results - last 24 hr 08/30/24 14:47: WBC 5.0, RBC 3.45 L, Hgb 5.9 L*, Hct 23.1 L, MCV 67.0 L, MCH 17.1 L, MCHC 25.5 L, RDW Std Deviation 44.3 H, RDW Coeff of Aristides 18.8 H, Plt Count 204, MPV TNP, Immature Gran % (Auto) 0.400, Neut % (Auto) 61.1, Lymph % (Auto) 22.6, [place] % (Auto) 12.7 H, Eos % (Auto) 2.2, Baso % (Auto) 1.0, Absolute Neuts (auto) 3.0, Absolute Lymphs (auto) 1.12, Nucleated RBC % 0, Sodium 139, Potassium 3.8, Chloride 106, Carbon Dioxide 19.2 L, Anion Gap 13, BUN 8, C reatinine 0.66 L, Estim Creat Clear Calc 99.69, Est GFR (MDRD) Non-Af 109, BUN/Creatinine Ratio 12.8, Glucose 97, Calcium 9.2, Magnesium 2.2, Blood Type O POSITIVE, Antibody Screen NEGATIVE, Crossmatch See Detail 08/30/24 22:23: Hgb 7.7 L, Hct 26.6 L 08/31/24 06:52: WBC 4.1 L, RBC 3.75 L, Hgb 7.5 L, Hct 26.2 L, MCV 69.9 L, MCH 20.0 L, MCHC 28.6 L D, RDW Std Deviation 52.3 H, RDW Coeff of Aristides 20.9 H, Plt Count 162, Immature Gran % (Auto) 0.200, Neut % (Auto) 67.1, Lymph % (Auto) 16.0 L, [place] % (Auto) 13.8 H, Eos % (Auto) 1.7, Baso % (Auto) 1.2 H, Absolute Neuts (auto) 2.8, Absolute Lymphs (auto) 0.66 L, Nucleated RBC % 0 Micro: Microbiology 08/30/24 15:46 Stool Stool Occult Blood (MOJGAN) - Final Charges/Coding Visit Charges Inpatient E&M: 87351 Init Hosp L3
[2024-08-31 08:05] LABS: Anion Gap 11 (5-15); BUN 4 mg/dL (4-19); BUN/Creat Ratio 7.0 RATIO (10-20); Calcium,Total 8.8 mg/dL (7.6-11.0); Carbon Dioxide 20.5 mmol/L (21.0-32.0); Chloride 108 mmol/L (98-108); Estimated Creatinine Clearance 106.00 ml/min (50-250); Glucose 99 mg/dL (70-99); Potassium 3.8 mmol/L (3.3-5.1)
[2024-08-31 08:24] LABS: Anisocytosis 2+
[2024-08-31 10:00] VITALS: BP 113/61; PULSE 91; RESP 16; TEMP 37.1; O2SAT 99
[2024-08-31] MEDS: Cholecalciferol (VIT D3) 25 MCG TABLET (1,000 UNITS) 100 MCG PO (10:27)
[2024-08-31 10:28] VITALS: O2SAT 98
--- NOTE | 2024-08-31 12:53 | PCM.DC ---
Discharge Instructions Diet Discharge Diet: No restrictions DC O2, CPAP, BIPAP needs Home O2 Discharge instructions: No Dressing / Incision Discharge Activity: Return to Normal Activity May resume sexual activity in: - (Please defer sexual intercourse until cleared per Coat Tailor at follow-up.) Weight Bearing Status: Weight bearing as tolerated Dressing / Incision Call your doctor if you observe: - (Recurrent heavy vaginal bleeding, lightheadedness, dizziness, shortness of breath, chest pain.) Follow Up Care Test Results: Test results from this visit will be discussed in further detail at your follow-up appointment, if applicable. Discharge Plan Admission Admit Date/Time: 08/30/24 18:51 Primary Reason for Your Visit: Premenopausal Menorrhagia, ABLA, Fe deficiency anemia Attending Provider: Lori Conrad Primary Care Provider: Inocencio Frye Consulting Providers: Johnny Zamora; Roxanna King Instructions Additional Instructions / Restrictions: ADDITIONAL INSTRUCTIONS/PLAN OF CARE: --electronic installer would like you to continue medroxyprogesterone 5 mg tablet daily until you have your first cycle at which point they would like you to immediately call them and likely they will increase this dose to 10 mg daily at that time. -- Please continue newly initiated oral iron supplementation which may be increased outpatient pending her toleration of this medication. It sometimes can cause constipation therefore [id number] stool softeners may be used as well. --Please have follow-up complete blood count at follow-up with your primary care physician as noted. --electronic installer office will contact you to arrange visit so that you also may have biopsy arranged as well as plan for upcoming robotic hysterectomy. --If at any point you have onset of heavy bleeding please immediately contact the electronic installer office. Discharge Orders/Prescriptions Prescriptions: New medroxyprogesterone 5 mg tablet 5 mg PO DAILY 30 Days Qty: 30 0RF Rx Instructions: [employer] Supervisor would like you to call them when start your cycle to possible increase. ferrous gluconate 324 mg (38 mg iron) tablet 324 mg PO DAILY 30 Days Qty: 30 0RF No Action ropinirole 0.5 mg tablet 1 mg PO QHS escitalopram oxalate 20 mg tablet 20 mg PO DAILY cholecalciferol (vitamin D3) 100 mcg (4,000 unit) capsule 100 mcg PO DAILY Referrals / Follow Up: Inocencio Frye MD [Primary Care Provider] - (Please follow-up in 3-5 days to review admission, have outpatient repeat complete blood count assessment.) Roxanna King DO [Med Staff - Active Staff] - (The [employer] office will contact you with a visit.) Disposition Disposition (needs filled in before D/C Order can be placed): Home, Self Care
--- NOTE | 2024-08-31 12:54 | PCM.DC.SUM ---
Providers Date of Admission: 08/30/24 Date of Discharge: 08/31/24 Primary Care Physician: Dr. Inocencio Frye MD Consultations 08/31/24 07:06 Consult: LINING CUTTER Routine Consulting Provider: Roxanna King Reason for Consult: Heavy cycles EMERGENT Consult: No MD Notified: Yes Date Notified: 08/31/24 Time Notified: 07:08 Method of Notification: Text Reason For Visit: SEVERE ANEMIA Diagnosis Discharge Diagnosis (1) Menorrhagia, premenopausal: Status: Acute Code(s): N92.4 - Excessive bleeding in the premenopausal period (2) Iron deficiency anemia: Status: Chronic Code(s): D50.9 - Iron deficiency anemia, unspecified (3) Acute blood loss anemia: Status: Acute Code(s): D62 - Acute posthemorrhagic anemia Plan: DISCHARGE DIAGNOSES: #1. Premenopausal menorrhagia with associated acute on suspected chronic microcytic anemia/iron deficiency anemia with acute blood loss anemia #2. Anxiety #3. Former tobacco use #4. RLS Medications at Discharge Home Medications cholecalciferol (vitamin D3) 100 mcg (4,000 unit) capsule 100 mcg PO DAILY 08/30/24 escitalopram oxalate 20 mg tablet 20 mg PO DAILY 08/30/24 ropinirole 0.5 mg tablet 1 mg PO QHS 08/30/24 ferrous gluconate 324 mg (38 mg iron) tablet 324 mg PO DAILY 30 days #30 tabs 08/31/24 medroxyprogesterone 5 mg tablet 5 mg PO DAILY 30 days #30 tabs 08/31/24 Hospital Course Operations None Procedures - (Transvaginal ultrasound.) Summary of Care Provided Minutes Spent on Discharge: 35 Hospital Course: The patient is a 44 y/o F w/ PMHx: Chronic premenopausal menorrhagia, Anxiety, Former tobacco use, RLS who presents to the [facility] ED on 08/30/2024 secondary to recently performed outpatient labs per PCP with significantly decreased hemoglobin at 5.5 despite no marked significant symptoms with recent cycle completed 1 week previous noted to be as usual extremely heavy lasting at least 7 days more heavy over the first initial 2. Given significantly decreased hemoglobin which was confirmed in ED patient was administered 2 unit PRBC. Patient was admitted to PCU, iron studies were obtained and patient was initiated on IV iron transfusions eventually transition to oral supplementation at discharge. Transvaginal ultrasound was obtained with noted significant 6.5 cm x 6.7 cm x 6.5 cm subendometrial fibroid. wall covering contractor was consulted and discussed case at length the patient who in the past have been resistant to hormonal therapy but at this time given severity of presentation amenable to initiation of medroxyprogesterone with planned follow-up biopsy and likely future robotic hysterectomy. Patient clinically improved quicker than expected although likely suspect this is secondary to her chronic ongoing blood loss anemia with menorrhagia. Given her clinically improved status quicker than expected and plan already in place with improved hemoglobin following transfusions patient was discharged to home in stable condition with plan continue oral iron supplementation, medroxyprogesterone 5 mg daily until cycle onset with then likely increase to 10 mg however would be arranged via Director Of Corporate Real Estate discussion in addition to plan follow-up which Director Of Corporate Real Estate office would arrange for planned biopsy and future robotic hysterectomy. DAY OF DISCHARGE PROGRESS NOTE: Subjective: Patient without acute event overnight per self and nursing report. Patient denies fever, chills, nausea, emesis, abdominal pain, chest pain or dyspnea. Patient agreeable to discharge to home following transvaginal ultrasound and plan of care with gynecology. Patient will be discharged with follow-up with primary care physician within 3-5 days in addition to plan to follow-up with gynecology more urgently in the office to assure set up of biopsy in future robotic hysterectomy with service noting that they would contact her with visit Objective: T98.8, heart rate 91, BP 113/61, respiratory rate 16, 99% on room air Physical Examination: General: awake, alert, oriented x 3 and cooperative, seated upright in the PCU bed, NAD. Skin: normal color, turgor, no icterus, cyanosis. HEENT: AT/NC, EOMI, PERRLA, MMM. Lungs: CTA bilaterally, moderate effort, mild decrease BL bases, no rales, ronchi or wheezing; Heart: Regular rate and rhythm; no gallop, rub audible. Abdomen: soft, NTTP, ND, normal BS. Extremities: no cyanosis, clubbing, or edema. Neurological: patient awake, alert, oriented x 3; cognitive function appears intact upon questioning,; pupils equally reactive to light and accomodation; cranial nerves II-XII grossly normal, moving all 4 extremities, strength appropriate. Psychiatric: affect appears mildly fatigued otherwise normal, no acute evidence of depressive or anxiety feelings. Assessment and Plan: Please see hospital summary above. Weight / BMI Weight Weight: 145 lb 8.081 oz Body Mass Index (BMI) 25.0 ABG / Lab / Microbiology Data 08/31/24 06:52 08/31/24 06:52 Laboratory: Laboratory Results - last 24 hr 08/30/24 14:47: WBC 5.0, RBC 3.45 L, Hgb 5.9 L*, Hct 23.1 L, MCV 67.0 L, MCH 17.1 L, MCHC 25.5 L, RDW Std Deviation 44.3 H, RDW Coeff of Aristides 18.8 H, Plt Count 204, MPV TNP, Immature Gran % (Auto) 0.400, Neut % (Auto) 61.1, Lymph % (Auto) 22.6, [place] % (Auto) 12.7 H, Eos % (Auto) 2.2, Baso % (Auto) 1.0, Absolute Neuts (auto) 3.0, Absolute Lymphs (auto) 1.12, Nucleated RBC % 0, Sodium 139, Potassium 3.8, Chloride 106, Carbon Dioxide 19.2 L, Anion Gap 13, BUN 8, Creatinine 0.66 L, Estim Creat Clear Calc 99.69, Est GFR (MDRD) Non-Af 109, BUN/Creatinine Ratio 12.8, Glucose 97, Calcium 9.2, Magnesium 2.2, Blood Type O POSITIVE, Antibody Screen NEGATIVE, Crossmatch See Detail 08/30/24 22:23: Hgb 7.7 L, Hct 26.6 L 08/31/24 06:52: WBC 4.1 L, RBC 3.75 L, Hgb 7.5 L, Hct 26.2 L, MCV 69.9 L, MCH 20.0 L, MCHC 28.6 L D, RDW Std Deviation 52.3 H, RDW Coeff of Aristides 20.9 H, Plt Count 162, Immature Gran % (Auto) 0.200, Neut % (Auto) 67.1, Lymph % (Auto) 16.0 L, [place] % (Auto) 13.8 H, Eos % (Auto) 1.7, Baso % (Auto) 1.2 H, Absolute Neuts (auto) 2.8, Absolute Lymphs (auto) 0.66 L, Nucleated RBC % 0, Anisocytosis 2+, Sodium 139, Potassium 3.8, Chloride 108, Carbon Dioxide 20.5 L, Anion Gap 11, BUN 4, Creatinine 0.62 L, Estim Creat Clear Calc 106.00, Est GFR (MDRD) Non-Af 111, BUN/Creatinine Ratio 7.0 L, Glucose 99, Calcium 8.8, TSH 2.870, Free T4 1.10 Microbiology: Microbiology 08/30/24 15:46 Stool Stool Occult Blood (MOJGAN) - Final Radiography Diagnostic Testing: Radiology Impression Transvaginal US 08/31/24 07:09 IMPRESSION: Findings suggestive of a 6.5 cm 6.7 cm 6.5 cm subendometrial fibroid. Reading Location: [place] [id number] D/C Instructions Discharge Diet: No restrictions May resume sexual activity in: - (Please defer sexual intercourse until cleared per Rolloff Driver at follow-up.) Weight Bearing Status: Weight bearing as tolerated Call your doctor if you observe: - (Recurrent heavy vaginal bleeding, lightheadedness, dizziness, shortness of breath, chest pain.) DC O2, CPAP, BIPAP Needs Home O2 Discharge instructions: No Meaningful Use Info Meaningful Use Meaningful Use Diagnoses (Choose all that apply): None applicable Ischemic Stroke Statin Dosing Therapy Reference: STATIN DOSE THERAPY REFERENCE: * Patients > 75 years receive moderate or high dose statin therapy. * Patients 75 years or YOUNGER should receive HIGH intensity statin dose unless contraindicated. You will be required to document reason for non-treatment if statin daily dose does not meet guidelines. HIGH DOSE STATIN THERAPY DAILY Atorvastatin > than or = to 40 mg Rosuvastatin > than or = to 20 mg Amlodipine + Atorvastatin > than or = to 2.5/40 mg Ezetimibe + Simvastatin 10/80 mg Simvastatin 80mg Discharge Plan Admission Admit Date/Time: 08/30/24 18:51 Primary Reason for Your Visit: Premenopausal Menorrhagia, ABLA, Fe deficiency anemia Attending Provider: Lori Conrad Primary Care Provider: Inocencio Frye Consulting Providers: Johnny Zamora; Roxanna King Instructions Additional Instructions / Restrictions: ADDITIONAL INSTRUCTIONS/PLAN OF CARE: --wall covering contractor would like you to continue medroxyprogesterone 5 mg tablet daily until you have your first cycle at which point they would like you to immediately call them and likely they will increase this dose to 10 mg daily at that time. -- Please continue newly initiated oral iron supplementation which may be increased outpatient pending her toleration of this medication. It sometimes can cause constipation therefore [id number] stool softeners may be used as well. --Please have follow-up complete blood count at follow-up with your primary care physician as noted. --wall covering contractor office will contact you to arrange visit so that you also may have biopsy arranged as well as plan for upcoming robotic hysterectomy. --If at any point you have onset of heavy bleeding please immediately contact the wall covering contractor office. Discharge Orders/Prescriptions Prescriptions: New medroxyprogesterone 5 mg tablet 5 mg PO DAILY 30 Days Qty: 30 0RF Rx Instructions: Director Of Corporate Real Estate would like you to call them when start your cycle to possible increase. ferrous gluconate 324 mg (38 mg iron) tablet 324 mg PO DAILY 30 Days Qty: 30 0RF No Action ropinirole 0.5 mg tablet 1 mg PO QHS escitalopram oxalate 20 mg tablet 20 mg PO DAILY cholecalciferol (vitamin D3) 100 mcg (4,000 unit) capsule 100 mcg PO DAILY Referrals / Follow Up: Inocencio Frye MD [Primary Care Provider] - (Please follow-up in 3-5 days to review admission, have outpatient repeat complete blood count assessment.) Roxanna King DO [Med Staff - Active Staff] - (The Director Of Corporate Real Estate office will contact you with a visit.) Disposition Disposition (needs filled in before D/C Order can be placed): Home, Self Care Charges/Coding Visit Charges Inpatient E&M: 21844 Disch Hosp >30min
[2024-08-31 14:02] VITALS: BP 134/70; PULSE 93; RESP 16; TEMP 36.9; O2SAT 97
[2024-08-31 18:55] LABS: Iron 10 ug/dL (50-170); Iron Binding Capacity,Unsat 504 ug/dL (228-428)
[2024-08-31 19:03] LABS: Iron Binding Capacity,Total 514 ug/dL (250-450)
== END 2024-08-31 13:57 | disposition home or self-care (01) ==
LOC: ED 15:58 → PCU 19:38
PROVIDERS: Obstetrics & Gynecology; Admitting Provider Internal Medicine; Emergency Provider Surgery; PCP Family Medicine; Visit Provider Family Medicine
DX: D62 Acute posthemorrhagic anemia (principal); E87.20 Acidosis, unspecified; Z87.891 Personal history of nicotine dependence; F41.9 Anxiety disorder, unspecified; N92.4 Excessive bleeding in the premenopausal period; G25.81 Restless legs syndrome; Z79.899 Other long term (current) drug therapy; F32.A Depression, unspecified; D25.9 Leiomyoma of uterus, unspecified
CPT/HCPCS: 36415; 36430; 76830; 80048; 82274; 83540; 83550; 83735; 84439; 84443; 85014; 85018; 85025; 86850; 86900; 86901; 86920; 96361; 96365; 96366; 99221; 99283; P9016; A4216; G0378; J2916

== ENCOUNTER → 2024-08-30 | Outpatient (CLI) | payer BC, SELFPAY ==
[2024-08-30 12:43] LABS: Hematocrit 21.4 % (37-47); Hemoglobin 5.5 g/dL (12.0-15.0); Immature Granulocytes Count 0.000 X10^3/uL (0.0-0.0); Mean Corp Hgb Conc 25.7 g/dL (32-36); Mean Corpuscular Volume 66.7 fL (81-99); NRBC Flagged by Analyzer 0 % (0-5); POSITIVE COUNT YES; Platelet Count 189 K/mm3 (150-450); RBC Distribution Width CV 18.6 % (11.6-14.6); RBC Distribution Width SD 43.9 fl (35.1-43.9); Red Blood Count 3.21 M/mm3 (4.2-5.4); White Blood Count 3.2 K/mm3 (4.4-11.0)
[2024-08-30 13:23] LABS: AST(SGOT) 13 U/L (<=31); Alanine Aminotransfer ALT/SGPT 7 U/L (<=34); Albumin, Serum 4.5 g/dL (3.5-5.0); Alkaline Phosphatase 44 U/L (35-104); Anion Gap 10 (5-15); BUN 8 mg/dL (4-19); BUN/Creat Ratio 12.5 RATIO (10-20); Calcium,Total 9.0 mg/dL (7.6-11.0); Carbon Dioxide 21.7 mmol/L (21.0-32.0); Chloride 107 mmol/L (98-108); Ferritin 4 ng/mL (22-378); Globulin 2.6 g/dL (2.2-4.2); Glucose 94 mg/dL (70-99); Iron 9 ug/dL (50-170); Iron Binding Capacity,Unsat 467 ug/dL (228-428); Potassium 3.8 mmol/L (3.3-5.1); Vitamin D,25 Hydroxy 52.1 ng/mL (30-100)
[2024-08-30 13:49] LABS: Iron Binding Capacity,Total 476 ug/dL (250-450)
--- OUTSIDE RECORDS SUMMARY | 2024-09-01 03:17 | XMS RPT_ITS | CCD ---
Author Organization [facility] Care Team Providers Care Respiratory Physician Name Role Phone Inocencio Frye Attending Unavailable Inocencio Frye Referring Unavailable Inocencio Frye Primary Care Unavailable Inocencio Frye Primary Care Unavailable Angelica Olmos Attending Unavailable Angelica Olmos Referring Unavailable Inocencio Frye Referring Unavailable Inocencio Frye Primary Care Unavailable Inocencio rFye Attending Unavailable Inocencio Frye Attending Unavailable Inocencio Frye Primary Care Unavailable Dr. Inocencio Frye MD Primary Care Provider Amarilis FENCE MAKER-CAngelica Attending Provider Amarilis FENCE MAKER-CAngelica Referring Provider Dr. Inocencio Frye MD Attending Provider [phone] Dr. Inocencio Frye MD Referring Provider [phone] Problems Active Problems Problem Classification Problem Date Documented Da te Episodic/Chronic Nutritional deficiencies (1 source) Vitamin D deficiency, unspecified; Translations: [Vitamin D deficiency, unspecified] Onset: 05-19-2024 Chronic Thyroid disorders (1 source) Nontoxic single thyroid nodule; Translations: [Nontoxic single thyroid nodule] Onset: 06-23-2023 Chronic Past or Other Problems Problem Classification Problem Date Documented Da te Episodic/Chronic Other screening for suspected conditions (not mental disorders or infectious disease) (1 source) Encounter for screening mammogram for malignant neoplasm of breast; Translations: [Encounter for screening mammogram for malignant neoplasm of breast] Onset: 02-16-2024 Episodic Results Test Name Value Interpretation Reference Range Facility Anion gap in Serum or Plasma Ordered By: Inocencio Frye on 04-28-2024 Anion gap [Moles/Vol] 14 mmol/L 5-15 [facility] BUN/creatinine ratioOrdered By: Inocencio Frye on 04-28-2024 Urea nitrogen/Creatinine [Mass ratio] 12.2 mg/mg 10-20 [facility] Bilirubin, totalOrdered By: Inocencio Frye on 04-28-2024 Bilirubin [Mass/Vol] 0.57 mg/dL 0.00-1.30 [facility] Carbon dioxide, total [Moles /volume] in Central venous bloodOrdered By: Inocencio Frye on 04-28-2024 CO2 [Moles/Vol] 20.3 mmol/L Low 21.0-32.0 [facility] Chloride assayOrdered By: Chacha Frye on 04-28-2024 Chloride [Moles/Vol] 102 mmol/L 98-108 [facility] Comprehensive Metabolic Prof ilon 04-28-2024 Albumin [Mass/Vol] 4.3 g/dL Normal 3.5-5.0 [facility] Comment on above: Order Comment: Order Date: 04/28/24 Order Info: 0786-1 - CMP Performed By: #### L 500.4050 #### [facility] [address] [place], [place], [id number] Albumin/Globulin [Mass ratio] 1.4 {ratio} Normal 0.9-2.4 [facility] Comment on above: Order Comment: Order Date: 04/28/24 Order Info: 0786-1 - CMP Performed By: #### L 500.4050 #### [facility] [address] [place], [address] ALK PHOS 52 U/L Normal 35-104 [facility] Comment on above: Order Comment: Order Date: 04/28/24 Order Info: 0786-1 - CMP Performed By: #### L 500.4050 #### [facility] [address] [place], [place], [id number] ALT [Catalytic activity/Vol] 8 U/L Normal <=34 [facility] Comment on above: Order Comment: Order Date: 04/28/24 Order Info: 0786-1 - CMP Performed By: #### L 500.4050 #### [facility] [address] [place], [address] AST [Catalytic activity/Vol] 15 U/L Normal <=31 [facility] Comment on above: Order Comment: Order Date: 04/28/24 Order Info: 0786-1 - CMP Performed By: #### L 500.4050 #### [facility] [address] [place], [address] Bilirubin [Mass/Vol] 0.57 mg/dL Normal 0.00-1.30 [facility] Comment on above: Order Comment: Order Date: 04/28/24 Order Info: 0786-1 - CMP Performed By: #### L 500.4050 #### [facility] [address] [place], [address] BUN/CRE 12.2 RATIO Normal 10-20 [facility] Comment on above: Order Comment: Order Date: 04/28/24 Order Info: 0786-1 - CMP Performed By: #### L 500.4050 #### [facility] [address] [place], [address] Calcium [Mass/Vol] 9.1 mg/dL Normal 7.6-11.0 [facility] Comment on above: Order Comment: Order Date: 04/28/24 Order Info: 0786-1 - CMP Performed By: #### L 500.4050 #### [facility] [address] [place], [address] Chloride [Moles/Vol] 102 mmol/L Normal 98-108 [facility] Comment on above: Order Comment: Order Date: 04/28/24 Order Info: 0786-1 - CMP Performed By: #### L 500.4050 #### [facility] [address] [place], [address] CO2 [Moles/Vol] 20.3 mmol/L Low 21.0-32.0 [facility] Comment on above: Order Comment: Order Date: 04/28/24 Order Info: 0786-1 - CMP Performed By: #### L 500.4050 #### [facility] [address] [place], [address] Creatinine [Mass/Vol] 0.72 mg/dL Normal 0.70-1.20 [facility] Comment on above: Order Comment: Order Date: 04/28/24 Order Info: 0786-1 - CMP Performed By: #### L 500.4050 #### [facility] [address] [place], [address] GAP 14 Normal 5-15 [facility] Comment on above: Order Comment: Order Date: 04/28/24 Order Info: 0786-1 - CMP Performed By: #### L 500.4050 #### [facility] [address] [place], [address] GFR/1.73 sq M.predicted among non-blacks MDRD (S/P/Bld) [Vol rate/Area] 105 mL/min/{1.73_m2} Normal >60 [facility] Comment on above: Order Comment: Order Date: 04/28/24 Order Info: 0786-1 - CMP Result Comment: mL/m in/1.73m2 CKD-EPI Creatinine Equation (2020) Performed By: #### L 500.4050 #### [facility] [address] [place], [address] Globulin (S) [Mass/Vol] 3.0 g/dL Normal 2.2-4.2 [facility] Comment on above: Order Comment: Order Date: 04/28/24 Order Info: 0786-1 - CMP Performed By: #### L 500.4050 #### [facility] [address] [place], [address] Glucose [Mass/Vol] 87 mg/dL Normal 70-99 [facility] Comment on above: Order Comment: Order Date: 04/28/24 Order Info: 0786-1 - CMP Performed By: #### L 500.4050 #### [facility] [address] [place], [address] Potassium [Moles/Vol] 4.0 mmol/L Normal 3.3-5.1 [facility] Comment on above: Order Comment: Order Date: 04/28/24 Order Info: 0786-1 - CMP Performed By: #### L 500.4050 #### [facility] [address] [place], [address] Sodium [Moles/Vol] 136 mmol/L Normal 133-145 [facility] Comment on above: Order Comment: Order Date: 04/28/24 Order Info: 0786-1 - CMP Performed By: #### L 500.4050 #### [facility] [address] [place], [address] T PROT 7.3 g/dL Normal 5.9-8.4 [facility] Comment on above: Order Comment: Order Date: 04/28/24 Order Info: 0786-1 - CMP Performed By: #### L 500.4050 #### [facility] [address] [place], [address] Urea nitrogen [Mass/Vol] 9 mg/dL Normal 4-19 [facility] Comment on above: Order Comment: Order Date: 04/28/24 Order Info: 0786-1 - CMP Performed By: #### L 500.4050 #### [facility] [address] [place], [address] GFR/1.73 sq M.predicted daniel g non-blacks MDRD (S/P/Bld) [Vol rate/Area]Ordered By: Inocencio Frye on 04-28-2024 Estimated GFR (MDRD) Non-Af Amer 105 >60 [facility] Comment on above: mL/min/1.73m2 CKD-EP I Creatinine Equation (2020) L506.1001on 04-28-2024 Vitamin D 25-OH 34.2 ng/mL Normal 30-100 [facility] Comment on above: Order Comment: Order Date: 04/28/24 Order Info: 0786-1 - CMP Result Comment: Fatimah min D Status Deficiency: <20 ng/mL (50nmol/L) Insufficiency: 20-30 ng/mL (50-75 nmol/L) Sufficiency: 30-100 ng/mL (75-250 nmol/L) Toxicity: >100 ng/mL (>250 nmol/L) Performed By: #### L 506.1001 #### [facility] [address] [place], [address] Laboratory - Chemistry and C hemistry - challengeOrdered By: Inocencio Frye on 04-28-2024 AST [Catalytic activity/Vol] 15 U/L <32 [facility] Potassium (Unsp spec) [Mass/ Vol]Ordered By: Inocencio Frye on 04-28-2024 Potassium [Moles/Vol] 4.0 mmol/L 3.3-5.1 [facility] Serum creatinine measurement (mass/volume)Ordered By: Inocencio Frye on 04-28-2024 Creatinine [Mass/Vol] 0.72 mg/dL 0.70-1.20 [facility] Serum globulin measurementOr dered By: Inocencio Frye on 04-28-2024 Globulin (S) [Mass/Vol] 3.0 g/dL 2.2-4.2 [facility] Serum glucose measurement (m ass/volume)Ordered By: Inocencio Frye on 04-28-2024 Glucose [Mass/Vol] 87 mg/dL 70-99 [facility] Serum or plasma alanine fontaine otransferase (ALT) measurementOrdered By: Inocencio Frye on 04-28-2024 ALT [Catalytic activity/Vol] 8 U/L <35 [facility] Serum or plasma albumin mao urement (mass/volume)Ordered By: Inocencio Frye on 04-28-2024 Albumin [Mass/Vol] 4.3 g/dL 3.5-5.0 [facility] Serum or plasma albumin/glob ulin mass ratioOrdered By: Inocencio Frye on 04-28-2024 Albumin/Globulin [Mass ratio] 1.4 {ratio} 0.9-2.4 [facility] Serum or plasma alkaline natalie sphatase measurementOrdered By: Inocencio Frye on 04-28-2024 ALP [Catalytic activity/Vol] 52 U/L 35-104 [facility] Serum or plasma calcium mao urement (mass/volume)Ordered By: Inocencio Frye on 04-28-2024 Calcium [Mass/Vol] 9.1 mg/dL 7.6-11.0 [facility] Serum or plasma urea nitroge n measurement (mass/volume)Ordered By: Inocencio Frye on 04-28-2024 Urea nitrogen [Mass/Vol] 9 mg/dL 4-19 [facility] Sodium levelOrdered By: Inocencio Frye on 04-28-2024 Sodium [Moles/Vol] 136 mmol/L 133-145 [facility] Total proteinOrdered By: Zackary Frye on 04-28-2024 Protein [Mass/Vol] 7.3 g/dL 5.9-8.4 [facility] Vitamin D, 25-hydroxyOrdered By: Inocencio Frye on 04-28-2024 Vitamin D 25-Hydroxy 34.2 ng/mL 30-100 [facility] Comment on above: Vitamin D StatusDefi ciency: <20 ng/mL (50nmol/L)Insufficiency: 20-30 ng/mL (50-75 nmol/L)Sufficiency: 30-100 ng/mL (75-250 nmol/L)Toxicity: >100 ng/mL (>250 nmol/L) SCREENING MAMM (CAD), [facility] n 01-19-2024 SCREENING MAMM (CAD), [facility] Imaging Services [address], [place] [address] SCREENING MAMM (CAD), [facility] MR#: [id number] Acct: [id number] Name: GALINDO JOHNSTON Rep #: [id number] : 1980 F 43 From: Joaquin Miller MD PCP: Dr. Inocencio Frye MD Status: [facility] Study: SCREENING MAMM (CAD), [facility] Date of Exam: 12/25 08/16 Exam# [id number] Ordering Dr: Angelica Olmos FENCE MAKER FENCE [employer]ER-C [id number] MAMMOGRAPHY - BILATERAL SCREENING 3-D TOMOSYNTHESIS REASON FOR EXAM: Female, 43 years old. SCREENING PERTINENT HISTORY: No significant family history. TECHNIQUE: 2-D mammograms and 3-D Tomosynthesis of the breast (s) were performed. CAD was performed. COMPARISON: 12/23/2022 FINDINGS: The breast composition is Extermely dense tissue. Scattered benign calcifications are seen. No dense spiculated masses or suspicious microcalcifications are identified. No architectural distortion is identified. There is no skin thickening or retraction. There has been no significant change since the prior study. BI/SCREENING MAMM (CAD), BILAT IMPRESSION: No mammographic signs of malignancy. Routine yearly mammograms recommended. ASSESSMENT CATEGORY: BIRADS Category 1: Negative. A letter regarding these results will be sent to the patient by the facility within 30 days. FOLLOW UP RECOMMENDATION: Yearly follow up mammogram recommended. (A) Approximately 10% of breast cancers are not detected by mammography. A normal mammogram should not delay biopsy of a clinically suspicious abnormality. Electronically Signed: Joaquin Miller MD at 15:41 EST , CC: RUTH Olmos; Dr. Inocencio Frye MD Line Repairer: Signed Normal [facility] Thyroidon 06-16-[address] [facility] Imaging Services [address] [place] [id number] Thyroid MR#: [id number] Acct: [id number] Name: GALINDO JOHNSTON Rep #: [id number] : 1980 F 43 From: Gal Chavez MD PCP: Dr. Inocencio Frye MD Status: [facility] Study: Thyroid Date of Exam: 06/16/23 Exam# [id number] Ordering Dr: [place] [id number] STUDY: THYROID ULTRASOUND REASON FOR EXAM: Female, 43 years old. Known nodules TECHNIQUE: Ultrasound evaluation of the thyroid was performed with real-time and static fuentes-scale imaging. COMPARISON: 12/11/2021 FINDINGS: RIGHT LOBE: The right lobe of the thyroid gland measures 4.4 x 1.2 x 1.5 cm. There is a homogeneous echotexture. Multiple stable hypoechoic solid nodules unchanged from the previous study. Largest 2 measure 0.8 and 0.5 cm. LEFT LOBE: The left lobe of the thyroid gland measures 4.3 x 1.3 x 1.1 cm. There is a homogeneous echotexture. Multiple stable hypoechoic solid nodules largest measures 0.3 cm. ISTHMUS: The isthmus measures 0.09 cm. The regional lymph nodes are normal. US/Thyroid IMPRESSION: Stable homogeneous nodule with bilateral subcentimeter well-defined nodules unchanged dating back to 2019. Nodules are solid or almost completely solid, hypoechoic, mroty-psxu-clde, smoothly marginated and contains no echogenic foci. TI-RADS points: 4. TI-RADS category: TR4. Nodules are moderately suspicious but no FNA or follow-up is necessary given the small size of the nodules. Electronically Signed: Cristhian Chavez MD at 14:18 EDT , CC: Dr. Inocencio Fyre MD Line Repairer: Signed Normal [facility] Basophil percentageOrdered B y: Inocencio Frye on 06-04-2023 Bilirubin [Mass/Vol] 0.50 mg/dL 0.20-1.00 [facility] Comment on above: For patients on eltr ombopag therapy, use of Dim[place] TBIL is not recommended. Chloride [Moles/Vol] 106 mmol/L 98-107 [facility] Glucose [Mass/Vol] 89 mg/dL 74-106 [facility] Potassium [Moles/Vol] 3.8 mmol/L 3.5-5.1 [facility] Protein [Mass/Vol] 7.3 g/dL 6.4-8.2 [facility] Sodium [Moles/Vol] 137 mmol/L 136-145 [facility] Comprehensive Metabolic Prof ilon 06-04-2023 Albumin [Mass/Vol] 3.8 g/dL Normal 3.2-5.0 [facility] Comment on above: Order Comment: Order Date: 06/04/23 Order Info: 0786-1 - CMP Performed By: #### L 500.4050, L506.1000 #### [facility] [address] [place], [address] Albumin/Globulin [Mass ratio] 1.1 {ratio} Normal 0.9-2.4 [facility] Comment on above: Order Comment: Order Date: 06/04/23 Order Info: 0786-1 - CMP Performed By: #### L 500.4050, L506.1000 #### [facility] [address] [place], [address] ALK P 50 U/L Normal 45-117 [facility] Comment on above: Order Comment: Order Date: 06/04/23 Order Info: 0786-1 - CMP Performed By: #### L 500.4050, L506.1000 #### [facility] [address] [place], [address] ALT [Catalytic activity/Vol] 14 U/L Normal 13-56 [facility] Comment on above: Order Comment: Order Date: 06/04/23 Order Info: 0786-1 - CMP Performed By: #### L 500.4050, L506.1000 #### [facility] [address] [place], [address] AST [Catalytic activity/Vol] 10 U/L Low 15-37 [facility] Comment on above: Order Comment: Order Date: 06/04/23 Order Info: 0786-1 - CMP Performed By: #### L 500.4050, L506.1000 #### [facility] [address] [place], [address] Bilirubin [Mass/Vol] 0.50 mg/dL Normal 0.20-1.00 [facility] Comment on above: Order Comment: Order Date: 06/04/23 Order Info: 0786-1 - CMP Result Comment: For patients on eltrombopag therapy, use of [place] TBIL is not recommended. Performed By: #### L 500.4050, L506.1000 #### [facility] [address] [place], [address] BUN/CRE 15.5 RATIO Normal 10-20 [facility] Comment on above: Order Comment: Order Date: 06/04/23 Order Info: 0786-1 - CMP Performed By: #### L 500.4050, L506.1000 #### [facility] [address] [place], [address] CA,Total 8.7 mg/dL Normal 8.5-10.1 [facility] Comment on above: Order Comment: Order Date: 06/04/23 Order Info: 0786-1 - CMP Performed By: #### L 500.4050, L506.1000 #### [facility] [address] [place], [address] Chloride [Moles/Vol] 106 mmol/L Normal 98-107 [facility] Comment on above: Order Comment: Order Date: 06/04/23 Order Info: 0786-1 - CMP Performed By: #### L 500.4050, L506.1000 #### [facility] [address] [place], [address] CO2 [Moles/Vol] 26.0 mmol/L Normal 21.0-32.0 [facility] Comment on above: Order Comment: Order Date: 06/04/23 Order Info: 0786-1 - CMP Performed By: #### L 500.4050, L506.1000 #### [facility] [address] [place], [address] Creatinine [Mass/Vol] 0.78 mg/dL Normal 0.55-1.02 [facility] Comment on above: Order Comment: Order Date: 06/04/23 Order Info: 0786-1 - CMP Result Comment: The validity of the calculated GFR GFRAA in patients over 70 years has not been determined. Clinical correlation is essential. Performed By: #### L 500.4050, L506.1000 #### [facility] [address] [place], [address] EST GFR - AA 104 mL/min Normal >60 [facility] Comment on above: Order Comment: Order Date: 06/04/23 Order Info: 0786-1 - CMP Result Comment: Afri can [place] GFR Calc Performed By: #### L 500.4050, L506.1000 #### [facility] [address] [place], [address] GAP 5 Normal 5-15 [facility] Comment on above: Order Comment: Order Date: 06/04/23 Order Info: 0786-1 - CMP Performed By: #### L 500.4050, L506.1000 #### [facility] [address] [place], [address] GFR/1.73 sq M.predicted among non-blacks MDRD (S/P/Bld) [Vol rate/Area] 86 mL/min/{1.73_m2} Normal >60 [facility] Comment on above: Order Comment: Order Date: 06/04/23 Order Info: 0786-1 - CMP Result Comment: Non- GFR Calc Performed By: #### L 500.4050, L506.1000 #### [facility] [address] [place], [address] Globulin (S) [Mass/Vol] 3.5 g/dL Normal 2.2-4.2 [facility] Comment on above: Order Comment: Order Date: 06/04/23 Order Info: 0786-1 - CMP Performed By: #### L 500.4050, L506.1000 #### [facility] [address] [place], [address] Glucose [Mass/Vol] 89 mg/dL Normal 74-106 [facility] Comment on above: Order Comment: Order Date: 06/04/23 Order Info: 0786-1 - CMP Performed By: #### L 500.4050, L506.1000 #### [facility] [address] [place], [address] Potassium [Moles/Vol] 3.8 mmol/L Normal 3.5-5.1 [facility] Comment on above: Order Comment: Order Date: 06/04/23 Order Info: 0786-1 - CMP Performed By: #### L 500.4050, L506.1000 #### [facility] [address] [place], [address] Sodium [Moles/Vol] 137 mmol/L Normal 136-145 [facility] Comment on above: Order Comment: Order Date: 06/04/23 Order Info: 0786-1 - CMP Performed By: #### L 500.4050, L506.1000 #### [facility] [address] [place], [address] T PROT 7.3 g/dL Normal 6.4-8.2 [facility] Comment on above: Order Comment: Order Date: 06/04/23 Order Info: 0786-1 - CMP Performed By: #### L 500.4050, L506.1000 #### [facility] [address] [place], [address] Urea nitrogen [Mass/Vol] 12 mg/dL Normal 7-18 [facility] Comment on above: Order Comment: Order Date: 06/04/23 Order Info: 0786-1 - CMP Performed By: #### L 500.4050, L506.1000 #### [facility] [address] [place], [address] Laboratory - Chemistry and C hemistry - challengeOrdered By: Inocencio Frye on 06-04-2023 Albumin/Globulin [Mass ratio] 1.1 {ratio} 0.9-2.4 [facility] ALP [Catalytic activity/Vol] 50 U/L 45-117 [facility] ALT [Catalytic activity/Vol] 14 U/L 13-56 [facility] CO2 [Moles/Vol] 26.0 mmol/L 21.0-32.0 [facility] Globulin (S) [Mass/Vol] 3.5 g/dL 2.2-4.2 [facility] Urea nitrogen/Creatinine [Mass ratio] 15.5 mg/mg 10-20 [facility] No Panel InformationOrdered By: Inocencio Frye on 06-04-2023 Estimated GFR (MDRD) Amer 104 mL/min >60 [facility] Comment on above: GFR Calc Estimated GFR (MDRD) Non-Af Amer 86 mL/min >60 [facility] Comment on above: Non- GFR Calc Vitamin D 25-Hydroxy 39.6 ng/mL [facility] Comment on above: Vitamin D 25(OH) Sta tus Range Deficiency <20 ng/mL (50nmol/L) Insufficiency 20 - 30 ng/mL (50 - 75 nmol/L) Sufficiency 30 - 100 ng/mL (75 - 250 nmol/L) Toxicity >100 ng/mL (>250 nmol/L) Serum or plasma calcium mao urement (mass/volume)Ordered By: Inocencio Frye on 06-04-2023 Calcium [Mass/Vol] 8.7 mg/dL 8.5-10.1 [facility] Serum or plasma creatinine m easurement (mass/volume)Ordered By: Inocencio Frye on 06-04-2023 Creatinine [Mass/Vol] 0.78 mg/dL 0.55-1.02 [facility] Comment on above: The validity of the calculated GFR & GFRAA in patients over 70 years has not been determined. Clinical correlation is essential. Serum or plasma urea nitroge n measurement (mass/volume)Ordered By: Inocencio Frye on 06-04-2023 Urea nitrogen [Mass/Vol] 12 mg/dL 7-18 [facility] Thin prep Papanicolaou smear with manual screeningOrdered By: Inocencio Frye on 06-04-2023 Thin prep Papanicolaou smear with manual screening 3.8 g/dL 3.2-5.0 [facility] Thin prep Papanicolaou smear with manual screening 10 U/L 15-37 [facility] Thin prep Papanicolaou smear with manual screening 5 5-15 [facility] Vitamin D,25 Hydroxyon 06-03 Vitamin D 25-OH 39.6 ng/mL Normal [facility] Comment on above: Order Comment: Order Date: 06/04/23 Order Info: [id number] - VITD25 Result Comment: Fatimah min D 25(OH) Status Range Deficiency <20 ng/mL (50nmol/L) Insufficiency 20 - 30 ng/mL (50 - 75 nmol/L) Sufficiency 30 - 100 ng/mL (75 - 250 nmol/L) Toxicity >100 ng/mL (>250 nmol/L) Performed By: #### L 500.4050, L506.1000 #### [facility] [address] [place], [address] Basophil percentageOrdered B y: Josette Elizabeth on 12-03-2022 Cholesterol [Mass/Vol] 131 mg/dL <200 [facility] Comment on above: <200 mg/dL Desirable 200-240 mg/dL Borderline >240 mg/dL High Risk Triglyceride [Mass/Vol] 105 mg/dL <199 [facility] Comment on above: The drugs N-Acetylcy steine and Metamizole may falsely depress this assay.Serum Triglycerides Reference Interval Normal <150 mg/dL Borderline high 150 - 199 mg/dL High 200 - 499 mg/dL Very High > or = 500 mg/dL Serum or plasma cholesterol in HDL measurement (mass/volume)Ordered By: Josette Elizabeth on 12-03-2022 Cholesterol in HDL [Mass/Vol] 46 mg/dL >40 [facility] Comment on above: The drugs N-Acetylcy steine and Metamizole may falsely depress this assay. Reference Range HDL <40 mg/dL Low HDL Cholesterol HDL >or= 60 mg/dL High HDL Cholesterol Serum or plasma cholesterol in VLDL measurement (mass/volume)Ordered By: Josette Elizabeth on 12-03-2022 Cholesterol in VLDL [Mass/Vol] 21 mg/dL 5-40 [facility] Serum or plasma low density lipoprotein (LDL) cholesterol measurement (mass/volume)Ordered By: Josette Elizabeth on 12-03-2022 Cholesterol in LDL [Mass/Vol] 64 mg/dL 0-130 [facility] Basophil percentageOrdered B y: Dr. Frye on 05-27-2022 Bilirubin [Mass/Vol] 0.30 mg/dL 0.20-1.00 [facility] Comment on above: For patients on eltr ombopag therapy, use of Dimension [place] TBIL is not recommended. Chloride [Moles/Vol] 106 mmol/L 98-107 [facility] Glucose [Mass/Vol] 92 mg/dL 74-106 [facility] Potassium [Moles/Vol] 3.8 mmol/L 3.5-5.1 [facility] Protein [Mass/Vol] 7.6 g/dL 6.4-8.2 [facility] Sodium [Moles/Vol] 138 mmol/L 136-145 [facility] Laboratory - Chemistry and C hemistry - challengeOrdered By: Dr. Frye on 05-27-2022 ALP [Catalytic activity/Vol] 48 U/L 45-117 [facility] ALT [Catalytic activity/Vol] 17 U/L 13-56 [facility] CO2 [Moles/Vol] 26.0 mmol/L 21.0-32.0 [facility] Globulin (S) [Mass/Vol] 3.7 g/dL 2.2-4.2 [facility] Urea nitrogen/Creatinine [Mass ratio] 17.8 mg/mg 10-20 [facility] No Panel InformationOrdered By: Dr. Frye on 05-27-2022 Estimated GFR (MDRD) Amer 111 mL/min >60 [facility] Comment on above: GFR Calc Estimated GFR (MDRD) Non-Af Amer 92 mL/min >60 [facility] Comment on above: Non- GFR Calc Vitamin D 25-Hydroxy 66.2 ng/mL [facility] Comment on above: Vitamin D 25(OH) Sta tus Range Deficiency <20 ng/mL (50nmol/L) Insufficiency 20 - 30 ng/mL (50 - 75 nmol/L) Sufficiency 30 - 100 ng/mL (75 - 250 nmol/L) Toxicity >100 ng/mL (>250 nmol/L) Serum or plasma albumin mao urement (mass/volume)Ordered By: Dr. Frye on 05-27-2022 Albumin [Mass/Vol] 3.9 g/dL 3.2-5.0 [facility] Serum or plasma albumin/glob ulin mass ratioOrdered By: Dr. Frye on 05-27-2022 Albumin/Globulin [Mass ratio] 1.1 {ratio} 0.9-2.4 [facility] Serum or plasma calcium mao urement (mass/volume)Ordered By: Dr. Frye on 05-27-2022 Calcium [Mass/Vol] 8.9 mg/dL 8.5-10.1 [facility] Serum or plasma creatinine m easurement (mass/volume)Ordered By: Dr. Frye on 05-27-2022 Creatinine [Mass/Vol] 0.73 mg/dL 0.55-1.02 [facility] Comment on above: The validity of the calculated GFR & GFRAA in patients over 70 years has not been determined. Clinical correlation is essential. Serum or plasma urea nitroge n measurement (mass/volume)Ordered By: Dr. Frye on 05-27-2022 Urea nitrogen [Mass/Vol] 13 mg/dL 7-18 [facility] Thin prep Papanicolaou smear with manual screeningOrdered By: Dr. Frye on 05-27-2022 Thin prep Papanicolaou smear with manual screening 13 U/L 15-37 [facility] Thin prep Papanicolaou smear with manual screening 6 5-15 [facility] Basophil percentageon 2021 Bilirubin [Mass/Vol] 0.80 mg/dL 0.20-1.00 [facility] Work Phone: Comment on above: For patients on eltr ombopag therapy, use of Dimension [place] TBIL is not recommended. Chloride [Moles/Vol] 104 mmol/L 98-107 [facility] Work Phone: Glucose [Mass/Vol] 90 mg/dL 74-106 [facility] Work Phone: Potassium [Moles/Vol] 3.7 mmol/L 3.5-5.1 [facility] Work Phone: Protein [Mass/Vol] 7.9 g/dL 6.4-8.2 [facility] Work Phone: Sodium [Moles/Vol] 135 mmol/L 136-145 [facility] Work Phone: Laboratory - Chemistry and C hemistry - challengeon 05-14-2021 ALP [Catalytic activity/Vol] 49 U/L 45-117 [facility] Work Phone: ALT [Catalytic activity/Vol] 20 U/L 13-56 [facility] Work Phone: CO2 [Moles/Vol] 25.0 mmol/L 21.0-32.0 [facility] Work Phone: Globulin (S) [Mass/Vol] 3.7 g/dL 2.2-4.2 [facility] Work Phone: Urea nitrogen/Creatinine [Mass ratio] 19.4 mg/mg 10-20 [facility] Work Phone: No Panel Informationon 05-14 Estimated GFR (MDRD) Amer 114 mL/min >60 [facility] Work Phone: Comment on above: GFR Calc Estimated GFR (MDRD) Non-Af Amer 94 mL/min >60 [facility] Work Phone: Comment on above: Non- GFR Calc Thyroid Stimulating Hormone (TSH) 2.01 uIU/mL 0.358-3.74 [facility] Work Phone: Vitamin D 25-Hydroxy 67.6 ng/mL [facility] Work Phone: Comment on above: Vitamin D 25(OH) Sta tus Range Deficiency <20 ng/mL (50nmol/L) Insufficiency 20 - 30 ng/mL (50 - 75 nmol/L) Sufficiency 30 - 100 ng/mL (75 - 250 nmol/L) Toxicity >100 ng/mL (>250 nmol/L) Serum or plasma albumin mao urement (mass/volume)on 05-14-2021 Albumin [Mass/Vol] 4.2 g/dL 3.2-5.0 [facility] Work Phone: Serum or plasma albumin/glob ulin mass ratioon 05-14-2021 Albumin/Globulin [Mass ratio] 1.1 {ratio} 0.9-2.4 [facility] Work Phone: Serum or plasma calcium mao urement (mass/volume)on 05-14-2021 Calcium [Mass/Vol] 8.8 mg/dL 8.5-10.1 [facility] Work Phone: Serum or plasma creatinine m easurement (mass/volume)on 05-14-2021 Creatinine [Mass/Vol] 0.72 mg/dL 0.55-1.02 [facility] Work Phone: Comment on above: The validity of the calculated GFR & GFRAA in patients over 70 years has not been determined. Clinical correlation is essential. Serum or plasma urea nitroge n measurement (mass/volume)on 05-14-2021 Urea nitrogen [Mass/Vol] 14 mg/dL 7-18 [facility] Work Phone: Thin prep Papanicolaou smear with manual screeningon 05-14-2021 Thin prep Papanicolaou smear with manual screening 14 U/L 15-37 [facility] Work Phone: Thin prep Papanicolaou smear with manual screening 6 5-15 [facility] Work Phone: Encounters Encounter Date Encounter Type Care Provider Facility Start: 04-28-2024 End: 04-28-[address] Inocencio Frye MD Work Phone: [facility] Work Phone: Start: 04-28-2024 End: 04-28-[address] Inocencio Frye MD -Laboratory, [facility] Start: 04-28-2024 End: 04-28-2024 ambulatory Inocencio Frye Facility:[facility] Start: 01-19-2024 End: 01-19-2024 Patient encounter procedure Angelica MIRANDA -[facility]patient [facility] Work Phone: Start: 01-19-2024 End: 01-19-2024 ambulatory Inocencio Frye Facility:[facility] Start: 06-16-2023 End: 06-16-2023 ambulatory [facility] Work Phone: Start: 06-16-2023 End: 06-16-2023 Patient encounter procedure [facility]-Ultrasound, [facility] Work Phone: Start: 06-16-2023 End: 06-16-2023 ambulatory Inocencio Frye Facility:[facility] Start: 06-04-2023 End: 06-04-2023 ambulatory [facility] Work Phone: Start: 06-04-2023 End: 06-04-2023 Patient encounter procedure [facility] Start: 06-04-2023 End: 06-04-2023 ambulatory Inocencio Frye Facility:[facility] Start: 12-23-2022 End: 12-23-2022 ambulatory [facility] Work Phone: Start: 12-23-2022 End: 12-23-2022 Patient encounter procedure [facility]-Ultrasound, [facility] Work Phone: Start: 12-03-2022 End: 12-03-2022 ambulatory [facility] Work Phone: Start: 12-03-2022 End: 12-03-2022 Patient encounter procedure [facility] Start: 05-27-2022 End: 05-27-2022 ambulatory [facility] Work Phone: Start: 05-27-2022 End: 05-27-2022 Patient encounter procedure [facility] Start: 12-11-2021 End: 12-11-2021 ambulatory [facility] Work Phone: Start: 12-11-2021 End: 12-11-2021 Patient encounter procedure [facility] Start: 05-14-2021 End: 05-14-2021 Patient encounter procedure [facility]-Laboratory, [facility] Procedures Date Procedure Procedure Detail Performing Clinician Start: 01-19-2024 Screening mammograph y of bilateral breasts Dr. Inocencio Frye MD Work Phone: Start: 06-16-2023 US scan of thyroid Start: 12-23-2022 Screening mammography Start: 12-23-2022 US scan of thyroid Start: 12-11-2021 US scan of thyroid Start: 12-11-2021 Screening mammography Immunizations Immunization Date Immunization Notes Care Provider Fa cility 01-21-2019 Flucelvax Quad 2018- 2019 (PF) (flu vac qs 2018(4 yr up)CD(PF)) 60 mcg (15 mcg x [facility] Work Phone: Payers Date Payer Category Payer Self-pay [id number] 2023 Unknown [id number] 2020 Unknown [id number] Self-pay SELF PAY INSURANCE [id number] 01 [id number] Unknown [id number] Unknown [id number] Unknown [id number] Unknown [id number] [id number] [id number] Unknown [id number] Social History Date Type Detail Facility Start: 01-21-2019 End: 01-21-2019 Tobacco smoking status NHIS Unknown if ever smoked [facility] Start: 1980 Sex Assigned At Female [facility] Start: 01-21-2019 Tobacco smoking stat us NHIS Never smoked tobacco (finding) [facility] Start: 05-10-2024 Sex Female (finding) [facility] Evaluation note Note Date & Type Note Facility Evaluation note No assessment information availa ble [facility] Work Phone: Reason for referral (narrative) Note Date & Type Note Facility Reason for referral (narrative) No reason for referral information available [facility] Work Phone: Chief Complaint and Reason for Visit Chief Complaint SCREENING Chief Complaint Nontoxic single thyr oid nodule; SCREENING Chief Complaint NODULE Chief Complaint Admit Date SCREENING January 19, 2024 7:26am Summary Purpose Family History No Family History Records Found Advance Directives No Advanced Directives Records Found Additional Source Comments Goals (unrecognized section and content) Goals may be documented in a n alternate sectionGoals may be documented in an alternate sectionGoals may be documented in an alternate sectionGoals may be documented in an alternate sectionGoals may be documented in an alternate sectionGoals may be documented in an alternate sectionGoals may be documented in an alternate sectionGoals may be documented in an alternate section Care Teams (unrecognized sec tion and content) Team Status: Active Member Role Status Dates Dr. Inocencio Haywood MD Family Provider Active Dr. Inocencio Frye MD Primary Care Provider Active Team Status: Inactive Member Role Status Dates Dr. Inocencio Frye MD Primary Care Pr ovider, Attending Provider, Referring Provider Active Team Status: Inactive Member Role Status Dates Dr. Inocencio Frye MD Primary Care Provider Active RUTH Anne Attending Provider Active Team Status: Inactive Member Role Status Dates Dr. Inocencio Frye MD Primary Care Provider Active VANDANA AnneC Attending Provider, Referr ing Provider Active Team Status: Inactive Member Role Status Dates Dr. Inocencio Frye MD Primary Care Provider, Attend ing Provider Active Team Status: Inactive Member Role Status Dates Dr. Inocencio Frye MD Primary Care Provider Active Start: January 19, 2024 End: January 19, 2024 Angelica Olmos FENCE MAKER, FENCE MAKER-C Attending Provider Active S tart: January 19, 2024 End: January 19, 2024 Angelica Olmos FENCE MAKER, FENCE MAKER-C Referring Provider Active S tart: January 19, 2024 End: January 19, 2024 Team Status: Inactive Member Role Status Dates Dr. Inocencio Frye MD Primary Care Provider Active Start: April 28, 2024 End: April 28, 2024 Dr. Inocencio Frye MD Attending Provider Active Start: April 28, 2024 End: April 28, 2024 Dr. Inocencio Frye MD Referring Provider Active Start: April 28, 2024 End: April 28, 2024 INFORMATION SOURCE (unrecogn ized section and content) DATE CREATED AUTHOR 05/21/2024 [facility] FOR RECORDS PERTAINING TO PATIENTS WHO ARE OR HAVE BEEN ENROLLED IN A CHEMICAL DEPENDENCY/SUBSTANCEABUSE PROGRAM, SOME INFORMATION MAY BE OMITTED. This clinical summary was aggregated from multiple sources. Caution should be exercised in using it in the provision of clinical care. This summary normalizes information from multiple sources, and as a consequence, information in this document may materially change the coding, format and clinical context of patient data. In addition, data may be omitted in some cases. CLINICAL DECISIONS SHOULD BE BASED ON THE PRIMARY CLINICAL RECORDS. [facility] [employer] [facility]. provides no warranty or guarantee of the accuracy or completeness of information in this document.
== END | disposition home or self-care (01) ==
LOC: MFPLAB 10:25
PROVIDERS: PCP Family Medicine; Referring Provider Family Medicine; Visit Provider Family Medicine
DX: E61.1 Iron deficiency (principal); E55.9 Vitamin D deficiency, unspecified
CPT/HCPCS: 36415; 80053; 82306; 82728; 83540; 83550; 85025

== ENCOUNTER → 2024-09-06 | Outpatient (CLI) | payer BC, SELFPAY ==
[2024-09-06 12:16] LABS: Hematocrit 33.0 % (37-47); Hemoglobin 9.4 g/dL (12.0-15.0); Immature Granulocytes Count 0.020 X10^3/uL (0.0-0.0); Mean Corp Hgb Conc 28.5 g/dL (32-36); Mean Corpuscular Volume 74.7 fL (81-99); NRBC Flagged by Analyzer 0 % (0-5); POSITIVE MORPHOLOGY YES; Platelet Count 235 K/mm3 (150-450); RBC Distribution Width CV 27.1 % (11.6-14.6); RBC Distribution Width SD 61.4 fl (35.1-43.9); Red Blood Count 4.42 M/mm3 (4.2-5.4); White Blood Count 5.7 K/mm3 (4.4-11.0)
[2024-09-06 12:24] LABS: Differential Indicated SCAN CRITERIA MET
[2024-09-06 15:12] LABS: Anisocytosis 1+; Macrocytosis 1+; Polychromasia 1+
== END | disposition home or self-care (01) ==
LOC: MFPLAB 10:36
PROVIDERS: PCP Family Medicine; Referring Provider Family Medicine; Visit Provider Family Medicine
DX: D50.9 Iron deficiency anemia, unspecified (principal)
CPT/HCPCS: 36415; 85025

== ENCOUNTER 2024-09-09 15:54 | Outpatient (CLI) | payer BC, SELFPAY ==
--- NOTE | 2024-09-09 | EMB_PTH ---
PATIENT: GALINDO JOHNSTON LOC: [facility] U#:[id number] AGE/SX: 44/F ROOM: RE09/09/[address]: Dr. Roxanna King DO : 1980 BED: DIS: 09/09/2024 SPEC #: [id number] RECD: 09/09/24 16:48 STATUS: SENTHIL RIOS #: [id number] CALLY: 09/09/24 00:[address]: Roxanna King DEPT: SURGICAL PATHOLOGY RECD BY: Neil Butterfield ENTERED: 09/12/24 11:05 SP TYPE: ENDOM BX/C MARY DR: Dr. Inocencio Frye MD Tissues: A - Endometrium, NOS Procedures: Surgery Specimen Level IV HEADER OPERATION: Endometrial biopsy PRE-OP DIAGNOSIS: Menorrhagia, premenopausal, uterine fibroid TISSUE SUBMITTED: A- Endometrial tissue MICROSCOPIC DIAGNOSIS A. Endometrium, menorrhagia, premenopausal uterine fibroid, biopsy: * Benign secretory type endometrium. MICROSCOPIC DESCRIPTION Slides are reviewed. GROSS DESCRIPTION A. Received in formalin labeled with the patient's name and date of . Designated as EMB is a 2.5 x 1.5 x 0.3 cm aggregate of ackerman-pink tissue fragments. Entirely submitted in 1 cassette. AL 09/12/2024 CPT:36851
== END 2024-09-09 23:59 | disposition home or self-care (01) ==
LOC: LABSPEC 15:54
PROVIDERS: PCP Family Medicine; Visit Provider Obstetrics & Gynecology
DX: N92.4 Excessive bleeding in the premenopausal period (principal); D25.9 Leiomyoma of uterus, unspecified
CPT/HCPCS: 88305

== ENCOUNTER → 2024-10-11 | Outpatient (CLI) | payer BC, SELFPAY ==
--- NOTE | 2024-10-11 14:00 | EKG12_ITS ---
Test Reason : PREOP Blood Pressure : */* mmHG Vent. Rate : 70 BPM Atrial Rate : 70 BPM P-R Int : 120 ms QRS Dur : 76 ms QT Int : 392 ms P-R-T Axes : 82 76 47 degrees QTcB Int : 423 ms Normal sinus rhythm Normal ECG Confirmed by MAGDALENE KLEIN, NORA ([id number]), photograph editor BERNIE THORNTON ([id number]) on 10/12/2024 9:33:44 AM Referred By: Roxanna King Confirmed By: NORA DEL CASTILLO MD
== END | disposition home or self-care (01) ==
LOC: PSN 09:55
PROVIDERS: PCP Family Medicine; Referring Provider Obstetrics & Gynecology; Visit Provider Obstetrics & Gynecology
DX: Z01.818 Encounter for other preprocedural examination (principal); D25.9 Leiomyoma of uterus, unspecified; N92.0 Excessive and frequent menstruation with regular cycle
CPT/HCPCS: 93005

== ENCOUNTER → 2024-10-21 | Outpatient (CLI) | payer BC, SELFPAY ==
[2024-10-21 12:17] LABS: Hematocrit 36.2 % (37-47); Hemoglobin 10.8 g/dL (12.0-15.0); Mean Corp Hgb Conc 29.8 g/dL (32-36); Mean Corpuscular Volume 88.1 fL (81-99); POSITIVE MORPHOLOGY YES; Platelet Count 263 K/mm3 (150-450); RBC Distribution Width CV 20.8 % (11.6-14.6); RBC Distribution Width SD 69.5 fl (35.1-43.9); Red Blood Count 4.11 M/mm3 (4.2-5.4); White Blood Count 3.6 K/mm3 (4.4-11.0)
[2024-10-21 12:23] LABS: Scan Indicated on CBC? Y/N YES- FLAGS NOTED
== END | disposition home or self-care (01) ==
PROVIDERS: PCP Family Medicine; Referring Provider Obstetrics & Gynecology; Visit Provider Obstetrics & Gynecology
DX: D25.9 Leiomyoma of uterus, unspecified (principal); N92.0 Excessive and frequent menstruation with regular cycle
CPT/HCPCS: 36415; 85027

== ENCOUNTER 2024-11-06 16:06 | Emergency (ER) | payer BC, SELFPAY ==
[2024-11-06 16:07] VITALS: BP 108/63; PULSE 94; RESP 18; TEMP 36.3; O2SAT 96; BMI 23.7
--- NOTE | 2024-11-06 16:48 | EX.ED.DYSGE1 ---
HPI History of Present Illness Chief Complaint: Weakness Informant: patient Onset/Context/Timing Onset: Weeks Context: Gradual Onset Timing: Continuous Current Severity: Mild Maximum Severity: Mild Narrative Narrative: 44-year-old female has been having heavy vaginal bleeding for months. Is set up to have a hysterectomy done by Dr. Roxanna Cody this coming Thursday. Patient states she has been having more bleeding. She is on no blood thinners. And just feels weak. Prior transfusion of several units of blood. And iron. G3, P2 Ab1 with having a miscarriage. Prior similar symptoms: Yes Recent Illness/Hospitalization: No PFSH PFSH Medical History delivery delivered Wears glasses Menorrhagia, premenopausal Iron deficiency anemia Anxiety Former smoker Home Medications ?Medication ?Instructions ?Recorded ?Last Taken ?Type cholecalciferol (vitamin D3) 100 100 mcg PO DAILY vitamin 08/30/24 Unknown History mcg (4,000 unit) capsule escitalopram oxalate 20 mg tablet 20 mg PO DAILY mental health 08/30/24 Unknown History ferrous gluconate 324 mg (38 mg 324 mg PO DAILY 30 days #30 tabs 08/31/24 Unknown Rx iron) tablet ascorbate calcium (vitamin C) 500 500 mg PO QDAY 09/09/24 Unknown History mg tablet levocetirizine 5 mg tablet 5 mg PO QDAY 09/09/24 Unknown History megestrol 40 mg tablet 40 mg PO QDAY #30 tabs 10/04/24 Unknown Rx ropinirole 1 mg tablet 1 mg PO QHS 10/25/24 Unknown History Allergy/AdvReac Type Severity Reaction Status Date / Time codeine Allergy PT UNSURE Verified 11/06/24 16:09 OF REACTION Surgical History Tubal ligation status H/O wisdom tooth extraction Social History Smoking Status: Former smoker ROS ROS ED ROS Narrative Heavier than normal vaginal bleeding. Generalized weakness. Constitutional Constitutional ED: Denies chills or fever(s) Eyes Eyes: Denies blurry vision ENT ENT ED: Denies ear pain Cardiovascular Cardiovascular: Denies chest pain Respiratory/Chest Respiratory/Chest: Denies cough or dyspnea Gastrointestinal Gastrointestinal: Denies abdominal pain Genitourinary Genitourinary ED: Denies dysuria or hematuria Musculoskeletal Musculoskeletal: Denies arthralgias or back pain Integumentary Denies abscess or Abrasions Neurologic Neurologic: Denies headache(s) Psychiatric Psychiatric: Denies anxiety or depression Endocrine Endocrinology: Denies cold intolerance Hematologic/Lymphatic Hematologic/Lymphatic: Reports anemia Allergic/Immunologic Allergic/Immunologic ED: Denies mouth swelling, tongue swelling or urticaria EXAM Physical Exam Narrative Exam Narrative: well appearing 44-year-old female. Vital signs stable afebrile. H EENT exam pupils round react light. Moist extremities. Neck nontender no JVD. Lungs clear to auscultation bilaterally. Heart regular rhythm rate about 95 no murmur. Chest wall ribs nontender. Abdomen soft nontender. Moving all 4 extremities. Nontender no edema. Normal strength. Normal range of motion. Back nontender. Neurologically patient is awake alert. Answering questions following commands. Does appear to be mildly pale. Const Vital Signs: 11/06/24 16:07 11/06/24 16:46 11/06/24 17:06 Temperature 97.4 F L Temperature Source Oral Pulse Rate 94 84 Respiratory Rate 18 18 Respiratory Effort Normal Non-Labored Respiratory Pattern Normal Blood Pressure 108/63 115/66 Blood Pressure Mean 78 82 Pulse Ox 96 100 Oxygen Delivery Method Room Air Room Air Positive well developed; Negative for cachectic, contractures or unkempt General Appearance ED: well developed, NAD and pallor; Negative for unkempt, cachectic, contractures, cyanotic or diaphoretic Nutritional Appearance: Negative for cachectic HEENT Reports moist mucous membranes Eyes PERRL and EOMs intact bilaterally General Eye ED: Yes pale conjunctiva Neck no lymphadenopathy, supple and no JVD Chest Wall inspection of chest normal and palpation of chest normal Resp normal respiratory effort and clear to auscultation bilaterally Cardio regular rate, regular rhythm, S1 normal heart sound, S2 normal heart sound and no murmurs GI normal to inspection, nondistended, normoactive bowel sounds, non-tender, non-distended and no masses Auscultation: normoactive bowel sounds Palpation: soft; Negative for tender, guarding, mass or rebound tenderness present Back/Spine no CVA tenderness General Back: Negative for CVA tenderness Cervical Spine: Negative for cervical spine tenderness Thoracic Spine / Upper Back: Negative for thoracic spinal tenderness or paraspinal muscle tenderness Lumbar Spine / Lower Back: Negative for lumbar spinal tenderness Extremity normal to inspection General Extremety ED: Negative for edema or tenderness General Extremity: Negative for edema Neuro oriented x3 and CN's II-XII intact bilaterally Sensorium / Orientation: alert Motor Exam: strength 5/5 throughout Psych mental status grossly normal Appearance: Negative for unkempt Skin no rashes or lesions noted, no wounds and skin turgor normal General Skin Exam: elasticity normal and pallor; Negative for jaundice Lesions: No lesion noted Rashes: No rashes noted Trauma: Negative for abrasion Wounds: Negative for wounds noted MDM MDM MDM Narrative Medical decision making narrative: 44-year-old female history of menorrhagia being set up for a hysterectomy in 2 days. Feels generally weak. Has needed a blood transfusion in the past. Screening labs will be obtained including blood count type and screen. Repeat exam patient is doing well at 5:42 PM. We whenever her blood counts. 2 weeks ago her hemoglobin was 10.6 and is now 7.8. She said her bleeding was worse several days ago it is mild today. I have Dr. Olive Meehan on page for Dr. Cody. To discuss a plan. Dr. Olive Meehan and I discussed the patient's case. Patient will get a repeat blood count on Thursday prior to surgery at that time they can decide to have the surgery or transfuser or cancel surgery or do the surgery and transfuser. If the patient has heavier bleeding to return to the emergency department. I discussed all this with the patient and her at bedside they are comfortable with the plan. Comfortable being discharged. She is going to increase her Megace from 40 mg daily to twice a day. History & Record Review Discussion w/independent historian: Patient Additional record(s) reviewed:: Prior inpatient record, Prior outpatient record, Prior ED visit and Prior labs Lab Data Attestation: I reviewed the patient's lab results. Lab results narrative: CBC shows a white count 7.4. H&H is 7.8 and 25.5. Previously on 25 October she was 10.6 and 34.8. Platelets 284. Chemistry shows sodium 139. Gap 11. BUN/creatinine fourteen 0.7. Glucose 114. Serum test negative. Labs: Laboratory Results - last 24 hr 11/06/24 16:40 WBC 7.4 RBC 2.80 L Hgb 7.8 L Hct 25.5 L MCV 91.1 MCH 27.9 MCHC 30.6 L RDW Std Deviation 49.8 H RDW Coeff of Aristides 17.1 H Plt Count 284 MPV 12.3 H Immature Gran % (Auto) 0.500 Neut % (Auto) 82.3 H Lymph % (Auto) 8.[address] [place] % (Auto) 7.9 Eos % (Auto) 0.1 Baso % (Auto) 0.7 Absolute Neuts (auto) 6.1 Absolute Lymphs (auto) 0.63 L Nucleated RBC % 0 Sodium 139 Potassium 3.6 Chloride 108 Carbon Dioxide 20.6 L Anion Gap 11 BUN 14 Creatinine 0.73 Estim Creat Clear Calc 83.15 Est GFR (MDRD) Non-Af 103 BUN/Creatinine Ratio 19.0 Glucose 114 H Calcium 8.8 Serum , Qual NEGATIVE Discharge Plan Triage Chief Complaint: Weakness ED Provider: Marvel Corley Dx/Rx/DC Orders Clinical Impression: Menorrhagia, Fibroid uterus, Anemia Instructions: Anemia, ED Dysfunctional Uterine Bleeding, ED Uterine Fibroids Prescriptions: No Action ascorbate calcium (vitamin C) 500 mg tablet 500 mg PO QDAY levocetirizine 5 mg tablet 5 mg PO QDAY escitalopram oxalate 20 mg tablet 20 mg PO DAILY cholecalciferol (vitamin D3) 100 mcg (4,000 unit) capsule 100 mcg PO DAILY ferrous gluconate 324 mg (38 mg iron) tablet 324 mg PO DAILY 30 Days Qty: 30 0RF ropinirole 1 mg tablet 1 mg PO QHS megestrol 40 mg tablet 40 mg PO QDAY Qty: 30 0RF Primary Care Provider: Inocencio Frye Referrals: Inocencio Frye MD [Primary Care Provider] - Roxanna King DO [Med Staff - Active Staff] - Keep Pauly appointment Activity Restrictions/Additional Instructions: Increase your Megestrol to 40 mg twice a day. If you have heavier bleeding just return to the emergency department. Prior to your surgery on Thursday or there we will recheck a blood count. Will make a decision at that time whether to do the surgery and transfuse you blood. Or if need be cancel the surgery. Print Language: Iranian Disposition Disposition: Home, Self Care
[2024-11-06 17:06] VITALS: BP 115/66; PULSE 84; RESP 18; O2SAT 100
--- OUTSIDE RECORDS SUMMARY | 2024-11-06 17:16 | XMS RPT_ITS | CCD ---
Author Organization [facility] Care Team Providers Care Performance Instructor Name Role Phone Melva KLEIN, Dr. Inocencio Lopez Primary Care Provider Amarilis PHOTOCOPY OPERATOR-C, Angelica Attending Provider [phone] Amarilis PHOTOCOPY OPERATOR-C, Angelica Referring Provider Melva KLEIN, Dr. Inocencio Lopez Attending Provider Melva KLEIN, Dr. Inocencio Lopez Referring Provider Melva KLEIN, Dr. Inocencio Lopez Primary Care Provider Melva KLEIN, Dr. Inocencio Lopez Attending Provider Melva KLEIN, Dr. Inocencio Lopez Referring Provider Dr. Joselito Maldonado DO Emergency Provider Noah KLEIN, Dr. Turner Admit Provider Noah KLEIN, Dr. Turner Attending Provider Noah KLEIN, Dr. Turner Other Provider Anamaria KLEIN, Dr. Lori Beard Attending Provider Dr. Roxanna King DO Other Provider [phone] Noah KLEIN, Dr. Turner Attending Provider Anamaria KLEIN, Dr. Lori Beard Other Provider Dr. Roxanna King DO Attending Provider Dr. Roxanna King DO Referring Provider Anika KLEIN, Dr. James Attending Provider [phone] Inocencio Frye Primary Care [facility] Roxanna King Attending Unavailabl e Roxanna King Referring Unavailabl e Schinner, Inocencio E Primary Care Unavailable Roxanna King Attending UnavailRoxanna Lopez Referring Unavailabl e Johnny Zamora Admitting Unavailable Schinner, Inocencio E Primary Care Unavailable [facility], Johnny Consulting Unavailable Lori Conrad Attending Unavailable Roxanna King Consulting Unavailabl e Schinner, Inocencio E Referring Unavailable SchinnerInocencio E Attending Unavailable Schinner, Inocencio E Primary Care Unavailable Schinner, Inocencio E Referring Unavailable SchinnerInocencio E Attending Unavailable Schinner, Inocencio E Primary Care Unavailable Schinner, Inocencio E Primary Care Unavailable Roxanna King Attending Unavailabl e Roxanna King Referring Unavailabl e Schinner, Inocencio E Primary Care Unavailable Schinner, Inocencio E Referring Unavailable SchinInocencio ferrara E Attending Unavailable Noah, Johnny Admitting Unavailable Schinner, Inocencio E Primary Care [facility]available [facility] Unavailable [facility], Johnny Consulting Unavailable Lori Conrad Attending Unavailable Roxanna King Consulting UnavailLori Edwards Consulting Unavailable Roxanna King Attending Unavailabl e Schinner, Inocencio E Primary Care Unavailable Schhumphrey, Inocencio E Referring Unavailable Roxanna King Attending Unavailabl e Schinner, Inocencio E Primary Care Unavailable Roxanna King Attending Unavailabl e Amarilis PHOTOCOPY OPERATOR, Angelica Referring Unavailable Amarilis PHOTOCOPY OPERATOR, Angelica Attending Unavailable Schinjosias, Inocencio E Primary Care Unavailable Schhumphrey, Inocencio E Primary Care Unavailable Roxanna King Referring Unavailabl e Jacob Donaldson Attending Unavailable Schinner, Inocencio E Primary Care Unavailable Schinner, Inocencio E Referring Unavailable Vande Roxanna Thurman Attending Unavailabl e Allergies Allergy Classification Reported Allergen(s) Allergy Type Date of Onset Reaction(s) Facility (9 sources) Codeine Drug Allergy 5 PT UNSURE OF REACTION [facility] (1 source) Codeine Drug Allergy 5 [facility] Repository Medications Current Medications Medication Drug Class(es) Dates Sig (Normalized) Sig (Original) calcium ascorbate 500 mg oral tablet (6 sources) Start: 09-09-2024 take 1 tablet by mouth once daily Ascorbate Calcium (Vitamin C) 500 mg tablet Active 500 mg PO daily September 09, 2024 12:00am Cholecalciferol (9 sources) Vitamin D Start: 08-30-2024 take 1 capsule by mouth once daily Cholecalciferol (Vitamin D3) 100 mcg (4,000 unit) capsule Active 100 ug PO DAILY August 30, 2024 12:00am vitamin Start: 08-30-2024 take 1 capsule by mo ut once daily Cholecalciferol (Vitamin D3) 100 mcg (4,000 unit) capsule Active 100 ug PO DAILY August 30, 2024 12:00am escitalopram 20 mg oral tablet (9 sources) Serotonin Reuptake Inhibitor Start: 08-30-2024 take 1 tablet by mouth once daily Escitalopram Oxalate 20 mg tablet Active 20 mg PO DAILY August 30, 2024 12:00am mental health ferrous gluconate 324 mg oral tablet (8 sources) Start: 08-31-2024 take 1 tablet by mouth once daily Ferrous Gluconate 324 mg (38 mg iron) tablet Active 324 mg PO DAILY 30 30 0 August 31, 2024 12:00am levocetirizine dihydrochloride 5 mg oral tablet (6 sources) Histamine-1 Receptor Antagonist Start: 09-09-2024 take 1 tablet by mouth once daily Levocetirizine 5 mg tablet Active 5 mg PO daily September 09, 2024 12:00am megestrol acetate 40 mg oral tablet (8 sources) Progestin Start: 09-12-2024 End: 10-04-2024 take 1 tablet by mouth once daily Megestrol 40 mg tablet Active 40 mg PO daily 30 0 October 04, 2024 2:15pm rOPINIRole 1 mg oral tablet (10 sources) Nonergot Dopamine Agonist Start: 10-25-2024 take 1 tablet by mouth at bedtime Ropinirole 1 mg tablet Active 1 mg PO AT BEDTIME October 25, 2024 12:00am Start: 08-30-2024 End: 10-25-2024 take 2 tablets by mouth at bedtime Ropinirole 0.5 mg tablet Discontinued 1 mg PO AT BEDTIME August 30, 2024 12:00am October 25, 2024 9:04am restless legs Completed/Discontinued Medications Medication Drug Class(es) Dates Sig (Normalized) Sig (Original) medroxyPROGESTERone acetate 5 mg oral tablet (13 sources) Progestin Start: End: take 1 tablet by mouth once daily Medroxyprogesterone 5 mg tablet Discontinued 5 mg PO DAILY 30 30 3 September 09, 2024 1:46pm October 25, 2024 9:04am Problems Active Problems Problem Classification Problem Date Documented Date Episodic/Chronic Acute posthemorrhagic anemia (18 sources) Acute posthemorrhagic anemia; Translations: [Acute posthemorrhagic anemia] Onset: 09-23-2024 08-30-2024 Episodic Benign neoplasm of uterus (14 sources) Uterine leiomyoma; Translations: [Leiomyoma of uterus, unspecified] Onset: 10-26-2024 09-09-2024 Episodic Deficiency and other anemia (17 sources) Iron deficiency anemia; Translations: [Iron deficiency anemia, unspecified] 08-30-2024 Episodic Deficiency and other anemia (2 sources) Iron deficiency anemia, unspecified; Translations: [Iron deficiency anemia, unspecified] Onset: 09-23-2024 Episodic Menopausal disorders (20 sources) Menorrhagia; Translations: [Excessive bleeding in the premenopausal period] Onset: 09-16-2024 08-31-2024 Chronic Menstrual disorders (2 sources) Excessive and frequent menstruation with regular cycle; Translations: [Excessive and frequent menstruation with regular cycle] Onset: 10-21-2024 Chronic Nutritional deficiencies (1 source) Vitamin D deficiency, unspecified; Translations: [Vitamin D deficiency, unspecified] Onset: 05-19-2024 Chronic Nutritional deficiencies (1 source) Iron deficiency; Translations: [Iron deficiency] Onset: 09-05-2024 Episodic Unclassified (8 sources) Please follow-up in 3-5 days to review admission, have outpatient repeat complete blood count assessment. Unclassified (8 sources) The [facility] Train[facility] office will contact you with a visit. Past or Other Problems Problem Classification Problem Date Documented Da te Episodic/Chronic Other screening for suspected conditions (not mental disorders or infectious disease) (1 source) Encounter for screening mammogram for malignant neoplasm of breast; Translations: [Encounter for screening mammogram for malignant neoplasm of breast] Onset: 02-16-2024 Episodic Results Test Name Value Interpretation Reference Range Facility CBC W/Diff, Automatedon 09-0 Absolute Lymph 1.17 X10 3/uL Normal 0.83-4.51 [facility] Comment on above: Order Comment: Comme nts: day of surgery Performed By: #### L 500.4050, L503.6030, L503.6550, L100.0100, L506.1001 #### [facility] [address] [place], [address] Absolute Neut 2.9 X10 3/uL Normal 2.0-7.7 [facility] Comment on above: Order Comment: Comme nts: day of surgery Performed By: #### L 500.4050, L503.6030, L503.6550, L100.0100, L506.1001 #### [facility] [address] [place], [address] Basophils/100 WBC (Bld) 1.5 % High 0-1 [facility] Comment on above: Order Comment: Comme nts: day of surgery Performed By: #### L 500.4050, L503.6030, L503.6550, L100.0100, L506.1001 #### [facility] [address] [place], [address] Eosinophils/100 WBC (Bld) 2.1 % Normal 0-5 [facility] Comment on above: Order Comment: Comme nts: day of surgery Performed By: #### L 500.4050, L503.6030, L503.6550, L100.0100, L506.1001 #### [facility] [address] [place], [address] Erythrocyte distribution width (RBC) [Ratio] 19.4 % High 11.6-14.6 [facility] Comment on above: Order Comment: Comme nts: day of surgery Performed By: #### L 500.4050, L503.6030, L503.6550, L100.0100, L506.1001 #### [facility] [address] [place], [address] Hematocrit (Bld) [Volume fraction] 34.8 % Low 37-47 [facility] Comment on above: Order Comment: Comme nts: day of surgery Performed By: #### L 500.4050, L503.6030, L503.6550, L100.0100, L506.1001 #### [facility] [address] [place], [address] Hemoglobin (Bld) [Mass/Vol] 10.6 g/dL Low 12.0-15.0 [facility] Comment on above: Order Comment: Comme nts: day of surgery Performed By: #### L 500.4050, L503.6030, L503.6550, L100.0100, L506.1001 #### [facility] [address] [place], [address] IG% 0.400 Normal 0.0-0.9 [facility] Comment on above: Order Comment: Comme nts: day of surgery Result Comment: IG% - Immature Granulocytes (promyelocytes, myelocytes and metamyelocytes) > 1% indicates that a LEFT SHIFT is Present. Performed By: #### L 500.4050, L503.6030, L503.6550, L100.0100, L506.1001 #### [facility] [address] [place], [address] Lymphocytes/100 WBC (Bld) 24.6 % Normal 19-41 [facility] Comment on above: Order Comment: Comme nts: day of surgery Performed By: #### L 500.4050, L503.6030, L503.6550, L100.0100, L506.1001 #### [facility] [address] [place], [address] MCH (RBC) [Entitic mass] 26.9 pg Low 27.0-32.0 [facility] Comment on above: Order Comment: Comme nts: day of surgery Performed By: #### L 500.4050, L503.6030, L503.6550, L100.0100, L506.1001 #### [facility] [address] [place], [address] MCHC (RBC) [Mass/Vol] 30.5 g/dL Low 32-36 [facility] Comment on above: Order Comment: Comme nts: day of surgery Performed By: #### L 500.4050, L503.6030, L503.6550, L100.0100, L506.1001 #### [facility] [address] [place], [address] MCV (RBC) [Entitic vol] 88.3 fL Normal 81-99 [facility] Comment on above: Order Comment: Comme nts: day of surgery Performed By: #### L 500.4050, L503.6030, L503.6550, L100.0100, L506.1001 #### [facility] [address] [place], [address] Monocytes/100 WBC (Bld) 10.9 % High 0-10 [facility] Comment on above: Order Comment: Comme nts: day of surgery Performed By: #### L 500.4050, L503.6030, L503.6550, L100.0100, L506.1001 #### [facility] [address] [place], [address] Neutrophils/100 WBC (Bld) 60.5 % Normal 47-70 [facility] Comment on above: Order Comment: Comme nts: day of surgery Performed By: #### L 500.4050, L503.6030, L503.6550, L100.0100, L506.1001 #### [facility] [address] [place], [address] Nucleated RBC (Bld) [#/Vol] 0 10*3/uL Normal 0-5 [facility] Comment on above: Order Comment: Comme nts: day of surgery Performed By: #### L 500.4050, L503.6030, L503.6550, L100.0100, L506.1001 #### [facility] [address] [place], [address] Platelet mean volume (Bld) [Entitic vol] 11.8 fL Normal 6.2-12.0 [facility] Comment on above: Order Comment: Comme nts: day of surgery Performed By: #### L 500.4050, L503.6030, L503.6550, L100.0100, L506.1001 #### [facility] [address] [place], [address] Platelets (Bld) [#/Vol] 241 10*3/uL Normal 150-450 [facility] Comment on above: Order Comment: Comme nts: day of surgery Performed By: #### L 500.4050, L503.6030, L503.6550, L100.0100, L506.1001 #### [facility] [address] [place], [address] RBC (Bld) [#/Vol] 3.94 10*6/uL Low 4.2-5.4 [facility] Comment on above: Order Comment: Comme nts: day of surgery Performed By: #### L 500.4050, L503.6030, L503.6550, L100.0100, L506.1001 #### [facility] [address] [place], [address] RDW SD 50.4 fl High 35.1-43.9 [facility] Comment on above: Order Comment: Comme nts: day of surgery Performed By: #### L 500.4050, L503.6030, L503.6550, L100.0100, L506.1001 #### [facility] [address] [place], [address] WBC (Bld) [#/Vol] 4.8 10*3/uL Normal 4.4-11.[address] [facility] Comment on above: Order Comment: Comme nts: day of surgery Performed By: #### L 500.4050, L503.6030, L503.6550, L100.0100, L506.1001 #### [facility] [address] [place], [address] Magnesiumon 10-25-2024 Magnesium [Mass/Vol] 2.1 mg/dL Normal 1.5-2.2 [facility] Comment on above: Performed By: #### L 500.2500, L100.0100 #### [facility] [address] [place], [address] Partial Thromboplast Timeon 10-25-2024 aPTT Coag (Bld) [Time] 26.9 s Normal 24.1-36.2 [facility] Comment on above: Performed By: #### L 500.2500, L100.0100 #### [facility] [address] [place], [address] Prothrombin Time w/INRon INR Coag (PPP) [Relative time] 1.0 {INR} Normal [facility] Comment on above: Performed By: #### L 500.2500, L100.0100 #### [facility] [address] [place], [address] PT Coag (PPP) [Time] 13.3 s Normal 11.7-14.9 [facility] Comment on above: Performed By: #### L 500.2500, L100.0100 #### [facility] [address] [place], [address] Type AND Screen - PAT ONLYo n 10-25-2024 Ab SCREEN GEL Negative Normal [facility] Comment on above: Order Comment: Surge ry Date: 11/08/24Reason for Laboratory Test [id number] of surgerySHYSTERECTOMY Performed By: #### L 500.4050, L503.6030, L503.6550, L100.0100, L506.1001 #### [facility] [address] [place], [address] CBC-Complete Blood Cnt No Di ffon 10-21-2024 Erythrocyte distribution width (RBC) [Ratio] 20.8 % High 11.6-14.6 [facility] Comment on above: Performed By: #### L 100.0500 #### [facility] [address] [place], [address] Hematocrit (Bld) [Volume fraction] 36.2 % Low 37-47 [facility] Comment on above: Performed By: #### L 100.0500 #### [facility] [address] [place], [address] Hemoglobin (Bld) [Mass/Vol] 10.8 g/dL Low 12.0-15.0 [facility] Comment on above: Performed By: #### L 100.0500 #### [facility] [address] [place], [address] MCH (RBC) [Entitic mass] 26.3 pg Low 27.0-32.0 [facility] Comment on above: Performed By: #### L 100.0500 #### [facility] [address] [place], [address] MCHC (RBC) [Mass/Vol] 29.8 g/dL Low 32-36 [facility] Comment on above: Performed By: #### L 100.0500 #### [facility] [address] [place], [address] MCV (RBC) [Entitic vol] 88.1 fL Normal 81-99 [facility] Comment on above: Performed By: #### L 100.0500 #### [facility] [address] [place], [address] Platelets (Bld) [#/Vol] 263 10*3/uL Normal 150-450 [facility] Comment on above: Performed By: #### L 100.0500 #### [facility] [address] [place], [address] RBC (Bld) [#/Vol] 4.11 10*6/uL Low 4.2-5.4 [facility] Comment on above: Performed By: #### L 100.0500 #### [facility] [address] [place], [address] RDW SD 69.5 fl High 35.1-43.9 [facility] Comment on above: Performed By: #### L 100.0500 #### [facility] [address] [place], [address] WBC (Bld) [#/Vol] 3.6 10*3/uL Low 4.4-11.[address] [facility] Comment on above: Performed By: #### L 100.0500 #### [facility] [address] [place], [address] Erythrocyte distribution wid th ratioOrdered By: Roxanna Thurman on 10-21-2024 Erythrocyte distribution width (RBC) [Ratio] 20.8 % High 11.6-14.6 [facility] Erythrocyte distribution wid th standard deviationOrdered By: Roxanna Thurman on 10-21-2024 Erythrocyte distribution width (RBC) [Ratio] 69.5 fl High 35.1-43.9 [facility] Hematocrit Auto (Bld) [Volum e fraction]Ordered By: Roxanna Thurman on 10-21-2024 Hematocrit (Bld) [Volume fraction] 36.2 % Low 37-47 [facility] Hemoglobin measurementOrdere d By: Roxanna Thurman on 10-21-2024 Hemoglobin (Bld) [Mass/Vol] 10.8 g/dL Low 12.0-15.0 [facility] MCV (mean corpuscular volume ) determinationOrdered By: Roxanna Thurman on 10-21-2024 MCV (RBC) [Entitic vol] 88.1 fL 81-99 [facility] Mean corpuscular hemoglobin (MCH) determinationOrdered By: Roxanna Thurman on 10-21-2024 MCH (RBC) [Entitic mass] 26.3 pg Low 27.0-32.0 [facility] Mean corpuscular hemoglobin concentration (MCHC) determinationOrdered By: Roxanna Thurman on 10-21-2024 MCHC (RBC) [Mass/Vol] 29.8 g/dL Low 32-36 [facility] [employer] Washing System Operator Office Visit Reporton 10-21-2024 [employer] Washing System Operator Office Visit Report [facility] [address], [address] [place] [address] OFFICE VISIT Date of Service: 10/21/24 MR#: [id number] Acct: [id number] Name: GALINDO JOHNSTON Rep #: [id number] : 1980 Provider: Dr. 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 Required: No Is patient in pain?: No Allergies codeine Allergy (Verified 10/21/24 10:07) PT UNSURE OF REACTION Medications ???Medication ???Instructions ???Recorded ???Confirmed ???Type cholecalciferol (vitamin D3) 100 100 mcg PO DAILY vitamin 08/30/24 10/21/24 History mcg (4,000 unit) capsule escitalopram oxalate 20 mg tablet 20 mg PO DAILY mental health 10/1710/21/24 History ropinirole 0.5 mg tablet 1 mg PO QHS restless legs 08/30/24 10/21/24 History ferrous gluconate 324 mg (38 mg 324 mg PO DAILY 30 days #30 tabs 0 08/31/24 10/21/24 Rx iron) tablet ascorbate calcium (vitamin C) 500 500 mg PO QDAY 09/09/24 10/21/24 History mg tablet levocetirizine 5 mg tablet 5 mg PO QDAY 09/09/24 10/21/24 His tory medroxyprogesterone 5 mg tablet 5 mg PO DAILY 30 days #30 tabs 10/21/24 Rx megestrol 40 mg tablet 40 mg PO QDAY #30 tabs 10/04/24 Rx Post menopausal: No Patient : No : No [facility] Medical History Menorrhagia, premenopausal Iron deficiency anemia Anxiety Former smoker Social History Smoking Status: Never smoker HPI TRH BS Cysto Details: GALINDO JOHNSTON, is a 44 y/o G2 P 2 (2 sections) who presented to [facility] for iron deficiency anemia. She stated that she was feeling fine but her pcp called her after routine blood work was done at his office and told her to go to the ER. She was given 2 units of PRBCs and IV iron.I was consulted to discuss menorrhagia as being the cause of her anemia and she then continued her follow up in my office with an emb and discussion about treatment. EMB was benign as was her last pap. Her thyroid testing was also normal. The plan is to proceed with a robotic hysterectomy in mid October. Measurements: Uterus: 12.1 cm x 8.5 cm x 8.2 cm with a volume of 442.86 mL. A nabothian cyst is seen. Findings suggestive of a 6.5 cm 6.7 cm 6.5 cm subendometrial fibroid. Endometrial Thickness: Not well visualized. Right Ovary: 3.5 cm x 3.6 cm x with a volume of 12.61 mL. Left Ovary: 3.3 cm x 2.9 cm x 2.4 cm with a volume of 12.01 mL. Uterus: Enlarged uterus. Findings suggestive of a 6.5 cm 6.7 cm 6.5 cm sub endometrial fibroid. Endometrium: Not well visualized as described. Right ovary: 1.8 cm 1.8 cm 1.2 cm resolving cyst. Left ovary: Normal size and echotexture. Other: No large pelvic mass identified. US/Transvaginal Non- IMPRESSION: Findings suggestive of a 6.5 cm 6.7 cm 6.5 cm subendometrial fibroid. ROS Const ROS Unobtainable: All systems reviewed are unremarkable except as noted in H Resp Resp: Reports system reviewed and no additional complaints, except as documented; Denies cough GI GI: Reports as per HPI Psych Psych: Reports system reviewed and no additional complaints, except as documented Exam Const General: cooperative, healthy appearing, comfortable and no acute distress Resp Effort Inspection: normal respiratory effort Skin General: no rashes or lesions noted Psych Appearance: grossly normal Speech and Movement: speech and movement normal Coding Level of Care Code Off vis,est,level 4 Diagnoses Fibroid uterus D25.9 Menorrhagia N92.0 Assessment and Plan Assessment and Plan (1) Fibroid uterus: Status: Acute (2) Menorrhagia: Status: Acute Orders: Orders CBC-Complete Blood Cnt No Diff Today D25.9 - Leiomyoma of uterus, unspecified, N92.0 - Excessive and frequent menstruation with regular cycle Plan After discussing the patient's diagnosis and treatment plan options, patient wishes to proceed with surgical management. I have discussed with the patient the risks, benefits, and alternatives of the procedure which include but are not limited to risks of anesthesia, bleeding, infection, possible damage to bowel, bladder, or surrounding vasculature which could lead to additional surgery to evaluate any complications. Patient agrees to procedure and wishes to proceed. ACOG/uptodate references given for additional information regarding procedure. cbc today and if hg is below 10 we may order an iron infusion prior to surgery. plan is for a total robotic hysterectomy, cystoscopy. 10/21/24 1328 Date (more content not included)... Normal [facility] Platelet countOrdered By: Luca Thurman on 10-21-2024 Platelets (Bld) [#/Vol] 263 10*3/uL 150-450 [facility] RBC Auto (Bld) [#/Vol]Ordere d By: Roxanna Thurman on 10-21-2024 RBC (Bld) [#/Vol] 4.11 10*6/uL Low 4.2-5.4 [facility] White blood cell (WBC) count Ordered By: Roxanna Thurman on 10-21-2024 WBC (Bld) [#/Vol] 3.6 10*3/uL Low 4.4-11.[address] [facility] Electrocardiogram reportOrde red By: Jacob Donaldson on 10-12-[address] [facility] [address] [place] [address] 12 Lead EKG 10/11/24 1011 MR#: [id number] Acct: [id number] Name: GALINDO JOHNSTON Rep #:[id number] : 1980 44 From: Jacob Donaldson MD Attending Dr: Dr. Roxanna King DO Status: REG CLI Ordering Dr: Roxanna King ate: 10/11/24 Location: [facility] Sex: F C Admitted: Test Reason : PREOP Blood Pressure : */* mmHG Vent. Rate : 70 BPM Atrial Rate : 70 BPM P-R Int : 120 ms QRS Dur : 76 ms QT Int : 392 ms P-R-T Axes : 82 76 47 degrees QTcB Int : 423 ms Normal sinus rhythm Normal ECG Confirmed by ANIKA KLEIN, JACOB ([id number]), newspaper or periodical editor BERNIE THORNTON ([id number]) on 10/12/2024 9:33:44 AM Referred By: Roxanna King Confirmed By: JACOB DONALDSON MD 10/12/24932 Date _ Jacob Donaldson MD CC: Dr. Roxanna King DO; Dr. Inocencio Frye MD ~ Signed [facility] Other Phone: 12 Lead EKGon 10-11-[address] [facility] [address] [facility] [place] [address] 12 Lead EKG 10/11/24 1011 MR#: [id number] Acct: [id number] Name: GALINDO JOHNSTON Rep #: [id number] : 1980 44 From: Jacob Donaldson MD Attending Dr: Dr. Roxanna King DO Statu s: REG CLI Ordering Dr: Roxanna King DO Date: 5 Location: [facility] Sex: F C Admitted: Test Reason : PREOP Blood Pressure : */* mmHG Vent. Rate : 70 BPM Atrial Rate : 70 BPM P-R Int : 120 ms QRS Dur : 76 ms QT Int : 392 ms P-R-T Axes : 82 76 47 degrees QTcB Int : 423 ms Normal sinus rhythm Normal ECG Confirmed by ANIKA KLEIN, JACOB ([id number]), newspaper or periodical editor BERNIE THORNTON ([id number]) on 10/12/2024 9:33:44 AM Referred By: Roxanna King Confirmed By: JACOB DONALDSON MD 10/12/24 0933 Date Jacob Donaldson MD CC: Dr. Roxanna King DO; Dr. Inocencio Frye MD Signed Normal [facility] - Chemistry and C hemistry - challengeOrdered By: Roxanna Thurman on 09-09-2024 HCG ( test) Ql (U) Negative [facility] [employer]ht[employer] Washing System Operator Office Visit Reporton 09-09-2024 [employer] System Operator Office Visit Report [facility] [address], [address] [place] [address] OFFICE VISIT Date of Service: 09/09/24 MR#: [id number] Acct: [id number] Name: GALINDO JOHNSTON Rep #: [id number] : 1980 Provider: Dr. Roxanna Ramos DO Age/Sex: 44/F Location: [facility] [place] Status: Signed Intake Vital Signs 08/30/24 20:12 09/09/24 13:21 09/09/24 13:21 Height 5 ft 4 in 5 ft 4 in 5 ft 4 in Weight: 141 lb BMI 24.2 BP 128/67 H Intake Visit Reasons: EMB and discuss Robotic Hysterectomy Chief Complaint: EMB Industrial Management Teacher Required: No Is patient in pain?: No Allergies codeine Allergy (Verified 09/09/24 13:20) PT UNSURE OF REACTION Medications ???Medication ???Instructions ???Recorded ???Confirmed ???Type cholecalciferol (vitamin D3) 100 100 mcg PO DAILY vitamin 08/30/24 09/09/24 History mcg (4,000 unit) capsule escitalopram oxalate 20 mg tablet 20 mg PO DAILY mental health 10/1709/09/24 History ropinirole 0.5 mg tablet 1 mg PO QHS restless legs 08/30/24 09/09/24 History ferrous gluconate 324 mg (38 mg 324 mg PO DAILY 30 days #30 tabs 0 08/31/24 09/09/24 Rx iron) tablet medroxyprogesterone 5 mg tablet 5 mg PO DAILY 30 days #30 tabs 11/1709/09/24 Rx ascorbate calcium (vitamin C) 500 500 mg PO QDAY 09/09/24 09/09/24 History mg tablet levocetirizine 5 mg tablet 5 mg PO QDAY 09/09/24 09/09/24 His tory Is last menstrual period known: Yes Last Menstrual Period: 08/13/24 Post menopausal: No Patient : No : No PFSH PFSH Medical History Menorrhagia, premenopausal Iron deficiency anemia Anxiety Former smoker Social History Smoking Status: Never smoker HPI EMB and discuss Robotic Hysterectomy Details: GALINDO JOHNSTON is a 44 year old who presents for EMB for severe menorrhagia and fibroid uterus (see inpatient note) Female Reproductive History Last Menstrual Period: 08/13/24 ROS Const ROS Unobtainable: All systems reviewed are unremarkable except as noted in H Resp Resp: Reports system reviewed and no additional complaints, except as documented; Denies cough GI GI: Reports as per HPI Psych Psych: Reports system reviewed and no additional complaints, except as documented Exam Const General: cooperative, healthy appearing, comfortable and no acute distress Resp Effort Inspection: normal respiratory effort General: bimanual renal exam normal bilaterally External Female Exam: normal appearance of the urethra Urethra: normal appearance of the urethra Speculum Exam - Vagina: normal appearance of the vagina Speculum Exam - Cervix: normal appearance of the cervix Bimanual Exam- Adnexa, other: normal adnexae and normal Pelvic Support: normal Skin General: no rashes or lesions noted Psych Appearance: grossly normal Speech and Movement: speech and movement normal Office Procedures Endometrial Biopsy Endometrial Biopsy Test: Yes Negative Consent Signed: Yes Time out checklist: patient tenaculum used: No dilator used: No Details: Cervix prepped with betadine and pipelle inserted into uterus without complication. Specimen obtained and sent to lab for analysis. All instruments removed from vagina without complications. Excellent hemostasis noted. Results POC Urine Office , Urine Negative Last Edit by Cami Rico on 09/09/24 13:30 Coding Level of Care Code Off vis,new,level 4 Diagnoses Menorrhagia N92.0 Fibroid uterus D25.9 CPT Codes Endometrial Biopsy (05663) Assessment and Plan Assessment and Plan (1) Menorrhagia: Status: Acute (2) Fibroid uterus: Status: Acute Orders: Orders Endometrial Biopsy Today D25.9 - Leiomyoma of uterus, unspecified, N92.4 - Excessive bleeding in the premenopausal period POC Urine Today N92.4 - Excessive bleeding in the premenopausal period Plan emb performed- plan is for robotic hysterectomy. will call with pathology results. 09/09/24 1401 Date [facility]ox[facility] King [facility] Signature: Date (if applicable) CC: Normal [facility] Surgery Specimen Level Tatiana 09-09-2024 Surgery Specimen Level IV Patient Age/Sex Location Account Attending Physician GALINDO JOHNSTON 44/F LABSPEC [id number] Dr. Roxanna King, Charles Specimen: [id number] Received: 09/09/24 Status: SENTHIL Drake Num: [id number] Spec Type: ENDOM BX/C Tommy Dr: Dr. Roxanna King DO HEADER OPERATION: Endometrial biopsy PRE-OP DIAGNOSIS: Menorrhagia, premenopausal, uterine fibroid TISSUE SUBMITTED: A- Endometrial tissue MICROSCOPIC DIAGNOSIS A. Endometrium, menorrhagia, premenopausal uterine fibroid, biopsy: * Benign secretory type endometrium. MICROSCOPIC DESCRIPTION Slides are reviewed. GROSS DESCRIPTION A. Received in formalin labeled with the patient's name and date of . Designated as EMB is a 2.5 x 1.5 x 0.3 cm aggregate of ackerman-pink tissue fragments. Entirely submitted in 1 cassette. CA 09/12/2024 CPT:31512 Patient Age/Sex Location Account Attending Physician GALINDO JOHNSTON 44/F LABSPEC [id number] Charles Coe Signed (signature on file) Dr. Silvia Carmichael MD 09/14/[address] [facility] Comment on above: Performed By: #### L 500.2500, L100.0100 #### [facility] [address] [place], [address] Absolute lymphocyte countOrd ered By: Inocencio Frye on 09-06-2024 Lymphocytes Auto (Unsp spec) [#/Vol] 1.09 10*3/uL 0.83-4.51 [facility] Absolute neutrophil countOrd ered By: Inocencio Frye on 09-06-2024 Neutrophils (Bld) [#/Vol] 3.9 10*3/uL 2.0-7.7 [facility] Automated lymphocyte count a s percentage of total leukocytesOrdered By: Inocencio Melva on 09-06-2024 Lymphocytes/100 WBC Auto (Unsp spec) 19.1 % 19-41 [facility] Basophil percentageOrdered B y: Inocencio Frye on 09-06-2024 Basophils/100 WBC (Bld) 1.9 % High 0-1 [facility] Blood polychromasia detectio n by light microscopyOrdered By: Inocencio Frye on 09-06-2024 Polychromasia LM Ql (Bld) 1+ [facility] CBC W/Diff, Automatedon 08-23 OVALOCYTE 1+ Normal [facility] Comment on above: Order Comment: Order Date: 09/06/24 Order Info: 0184- - CBCD Performed By: #### L 100.0100 #### [facility] [address] [place], [address] Anisocytosis Ql (Bld) 1+ Normal [facility] Comment on above: Order Comment: Order Date: 09/06/24 Order Info: 0184- - CBCD Performed By: #### L 100.0100 #### [facility] [address] [place], [address] MACROCYTOSIS 1+ Normal [facility] Comment on above: Order Comment: Order Date: 09/06/24 Order Info: 0184- - CBCD Performed By: #### L 100.0100 #### [facility] [address] [place], [address] PLT EST A Normal ADEQ [facility] Comment on above: Order Comment: Order Date: 09/06/24 Order Info: 0184- - CBCD Performed By: #### L 100.0100 #### [facility] [address] [place], [address] POLYCHROMASIA 1+ Normal [facility] Comment on above: Order Comment: Order Date: 09/06/24 Order Info: 0184-1 - CBCD Performed By: #### L 100.0100 #### [facility] [place], [address] Eosinophil percentageOrdered By: Inocencio Frye on 09-06-2024 Eosinophils/100 WBC (Bld) 3.0 % 0-5 [facility] Erythrocyte distribution wid th ratioOrdered By: Inocencio Frye on 09-06-2024 Erythrocyte distribution width (RBC) [Ratio] 27.1 % High 11.6-14.6 [facility] Erythrocyte distribution wid th standard deviationOrdered By: Inocencio Frye on 09-06-2024 Erythrocyte distribution width (RBC) [Ratio] 61.4 fl High 35.1-43.9 [facility] Hematocrit Auto (Bld) [Volum e fraction]Ordered By: Inocencio Frye on 09-06-2024 Hematocrit (Bld) [Volume fraction] 33.0 % Low 37-47 [facility] Hemoglobin measurementOrdere d By: Inocencio Frye on 09-06-2024 Hemoglobin (Bld) [Mass/Vol] 9.4 g/dL Low 12.0-15.0 [facility] Immature granulocytes/100 WB C Auto (Bld)Ordered By: Inocencio Frye on 09-06-2024 Immature granulocytes/100 WBC (Bld) 0.400 % 0.0-0.9 [facility] Comment on above: IG% - Immature Granu locytes (promyelocytes, myelocytes and metamyelocytes) > 1% indicates that a LEFT SHIFT is Present. Laboratory - Hematology and Cell countsOrdered By: Inocencio Frye on 09-06-2024 Anisocytosis Ql (Bld) 1+ [facility] MCV (mean corpuscular volume ) determinationOrdered By: Inocencio Frye on 09-06-2024 MCV (RBC) [Entitic vol] 74.7 fL Low 81-99 [facility] Macrocytes detectionOrdered By: Inocencio Frye on 09-06-2024 Macrocytes Ql (Bld) 1+ [facility] Mean corpuscular hemoglobin (MCH) determinationOrdered By: Inocencio Frye on 09-06-2024 MCH (RBC) [Entitic mass] 21.3 pg Low 27.0-32.0 [facility] Mean corpuscular hemoglobin concentration (MCHC) determinationOrdered By: Inocencio Frye on 09-06-2024 MCHC (RBC) [Mass/Vol] 28.5 g/dL Low 32-36 [facility] Monocyte percentageOrdered B y: Inocencio Frye on 09-06-2024 Monocytes/100 WBC (Bld) 7.5 % 0-10 [facility] Neutrophil percentageOrdered By: Inocencio Frye on 09-06-2024 Neutrophils/100 WBC (Bld) 68.1 % 47-70 [facility] Nucleated red blood cell per centageOrdered By: Inocencio Frye on 09-06-2024 Nucleated RBC/100 WBC (Bld) [Ratio] 0 % 0-5 [facility] Ovalocyte detectionOrdered B y: Inocencio Frye on 09-06-2024 Ovalocytes LM Ql (Bld) 1+ [facility] Platelet countOrdered By: Chacha Frye on 09-06-2024 Platelets (Bld) [#/Vol] 235 10*3/uL 150-450 [facility] Platelet estimateOrdered By: Inocencio Frye on 09-06-2024 Platelets LM Ql (Bld) A ADEQ [facility] RBC Auto (Bld) [#/Vol]Ordere d By: Inocencio Frye on 09-06-2024 RBC (Bld) [#/Vol] 4.42 10*6/uL 4.2-5.4 [facility] White blood cell (WBC) count Ordered By: Inocencio Frye on 09-06-2024 WBC (Bld) [#/Vol] 5.7 10*3/uL 4.4-11.[address] [facility] Absolute lymphocyte countOrd ered By: Johnny Zamora on 08-31-2024 Lymphocytes Auto (Unsp spec) [#/Vol] 0.66 10*3/uL Low 0.83-4.51 [facility] Absolute neutrophil countOrd ered By: Johnny Zamora on 07-09-2025 Neutrophils (Bld) [#/Vol] 2.8 10*3/uL 2.0-7.7 [facility] Anion gap in Serum or Plasma Ordered By: Johnny Zamora on 08-31-2024 Anion gap [Moles/Vol] 11 mmol/L 5-15 [facility] Automated lymphocyte count a s percentage of total leukocytesOrdered By: Johnny Zamora on 08-31-2024 Lymphocytes/100 WBC Auto (Unsp spec) 16.0 % Low 19-41 [facility] BUN/creatinine ratioOrdered By: Johnny Zamora on 08-31-2024 Urea nitrogen/Creatinine [Mass ratio] 7.0 mg/mg Low 10-20 [facility] Basic Metabolic Profile (BMP )on 08-31-2024 BUN/CRE 7.0 RATIO Low 10- [facility] Comment on above: Performed By: #### L 500.2500, L100.0100 #### [facility] [address] [place], [address] Calcium [Mass/Vol] 8.8 mg/dL Normal 7.6-11.[address] [facility] Comment on above: Performed By: #### L 500.2500, L100.0100 #### [facility] [address] [place], [address] Chloride [Moles/Vol] 108 mmol/L Normal 98-108 [facility] Comment on above: Performed By: #### L 500.2500, L100.0100 #### [facility] [address] [place], [address] CO2 [Moles/Vol] 20.5 mmol/L Low 21.0-32.0 [facility] Comment on above: Performed By: #### L 500.2500, L100.0100 #### [facility] [address] [place], [address] Creatinine [Mass/Vol] 0.62 mg/dL Low 0.70-1.20 [facility] Comment on above: Performed By: #### L 500.2500, L100.0100 #### [facility] [address] [place], [address] ECRCL 106.00 ml/min Normal 50-250 [facility] Comment on above: Performed By: #### L 500.2500, L100.0100 #### [facility] [address] [place], [address] GAP 11 Normal 5-15 [facility] Comment on above: Performed By: #### L 500.2500, L100.0100 #### [facility] [address] [place], [address] GFR/1.73 sq M.predicted among non-blacks MDRD (S/P/Bld) [Vol rate/Area] 111 mL/min/{1.73_m2} Normal >60 [facility] Comment on above: Result Comment: mL/m in/1.73m2 CKD-EPI Creatinine Equation (2020) Performed By: #### L 500.2500, L100.0100 #### [facility] [address] [place], [address] Glucose [Mass/Vol] 99 mg/dL Normal 70-[address] [facility] Comment on above: Performed By: #### L 500.2500, L100.0100 #### [facility] [address] [place], [address] Potassium [Moles/Vol] 3.8 mmol/L Normal 3.3-5.1 [facility] Comment on above: Performed By: #### L 500.2500, L100.0100 #### [facility] [address] [place], [address] Sodium [Moles/Vol] 139 mmol/L Normal 133-[address] [facility] Comment on above: Performed By: #### L 500.2500, L100.0100 #### [facility] [address] [place], [address] Urea nitrogen [Mass/Vol] 4 mg/dL Normal 4-19 [facility] Comment on above: Performed By: #### L 500.2500, L100.0100 #### [facility] [address] [place], [address] Basophil percentageOrdered B y: Johnny Zamora on 08-31-2024 Basophils/100 WBC (Bld) 1.2 % High 0-1 [facility] CBC W/Diff, Automatedon Anisocytosis Ql (Bld) 2+ Normal [facility] Comment on above: Performed By: #### L 500.2500, L100.0100 #### [facility] [address] [place], [address] Carbon dioxide, total [Moles /volume] in Central venous bloodOrdered By: Johnny Zaomra on 08-31-2024 CO2 [Moles/Vol] 20.5 mmol/L Low 21.0-32.0 [facility] Chloride assayOrdered By: Zonia Zamora on 08-31-2024 Chloride [Moles/Vol] 108 mmol/L 98-108 [facility] Consultation - OB/GYNon Consultation - TOW MOTOR DRIVER [facility] Medical Records Department [address] [place] [address] Consultation - TOW MOTOR DRIVER 08/31/24 0802 MR#: [id number] Acct: [id number] Name: GALINDO JOHNSTON Rep #: [id number] : 1980 44 From: Roxanna King DO PCP: Dr. Inocencio Frye MD Status:ADM ROMINA Location: [place] [address] Assessment Plan (1) Menorrhagia, premenopausal: (2) Iron deficiency anemia: (3) Acute blood loss anemia: PLAN: Plan plan is to dc to home with progesterone follow up in office for an EMB we discssed extensively the need for hysterectomy due to large fibroid uterus. Due to the fibroid, the anemia, and the 2 prior sections, I recomend robotic approach to limit more blood loss during the surgery and limit OR time. HPI Consult Data Date of Consult: 08/31/24 HPI Narrative HPI Narrative: GALINDO JOHNSTON, is a 44 y/o G2 P 2 (2 sections) who presents to [facility] for iron deficiency anemia. She states that she was feeling fine but her pcp called her after routine blood work was done at his offic and told her to go to the ER. She was given 2 units of PRBCs and IV iron.I was consulted to discuss menorrhagia as being the cause of her anemia. LMP: middle of july- very heavy. uses a super plus tampon every hour medications tried in the past: none Was seeing Dr. Chandra at [facility] until 2021 Last pap: 2021 - nomal per her report previous abnormal pap: none Last mammogram:12/2023- normal h/o abnormal mammogram:no Thyroid studies:pending bleeding disorder: none contraception: tubal ligation colon cancer screening: up to date and done recentlu health maintenance up to date: followed by Dr. Carrillo ultrasound of uterus: FINDINGS: LMP: August 14, 2024. Measurements: Uterus: 12.1 cm x 8.5 cm x 8.2 cm with a volume of 442.86 mL. A nabothian cyst is seen. Findings suggestive of a 6.5 cm 6.7 cm 6.5 cm subendometrial fibroid. Endometrial Thickness: Not well visualized. Right Ovary: 3.5 cm x 3.6 cm x with a volume of 12.61 mL. Left Ovary: 3.3 cm x 2.9 cm x 2.4 cm with a volume of 12.01 mL. Uterus: Enlarged uterus. Findings suggestive of a 6.5 cm 6.7 cm 6.5 cm sub endometrial fibroid. Endometrium: Not well visualized as described. Right ovary: 1.8 cm 1.8 cm 1.2 cm resolving cyst. Left ovary: Normal size and echotexture. Other: No large pelvic mass identified. US/Transvaginal Non- IMPRESSION: Findings suggestive of a 6.5 cm 6.7 cm 6.5 cm subendometrial fibroid. PFSH Medical History Anxiety Former smoker Medical History no medical history Home Medications ???Medication ???Instructions ???Recorded ???Last Taken ???Type cholecalciferol (vitamin D3) 100 100 mcg PO DAILY vitamin 08/30/24 Unknown History mcg (4,000 unit) capsule escitalopram oxalate 20 mg tablet 20 mg PO DAILY mental health 10/17 Unknown History ropinirole 0.5 mg tablet 1 mg PO QHS restless legs 08/30/24 Unknown History ferrous gluconate 324 mg (38 mg 324 mg PO DAILY 30 days #30 tabs 0 08/31/24 Unknown Rx iron) tablet medroxyprogesterone 5 mg tablet 5 mg PO DAILY 30 days #30 tabs 11/17 Unknown Rx Allergy/AdvReac Type Severity Reaction Status Date / Time codeine Allergy PT UNSURE Verified 08/30/24 14:28 OF REACTION Family History no significant family his Surgical History no surgical history Social History Smoking Status: Never smoker Vital Signs Vital Signs Vital Signs: 08/30/24 14:29 08/30/24 15:28 08/30/24 16:00 Temperature 97.1 F L Temperature Source Temporal Pulse Rate 118 H 81 70 Respiratory Rate 18 15 16 Respiratory Effort Respiratory Depth Respiratory Pattern Blood Pressure 153/58 H 121/75 H 131/74 H Blood Pressure Mean 89 90 93 Blood Pressure Source Blood Pressure Position Blood Pressure Location Pulse Ox 100 95 100 Oxygen Delivery Method Room Air Room Air Room Air 08/30/24 16:54 08/30/24 16:59 08/30/24 17:00 Temperature 98.3 F 98.3 F Temperature Source Oral Oral Pulse Rate 84 77 Respiratory Rate 20 H 15 Respiratory Effort Respiratory Depth Respiratory Pattern Blood Pressure 122/72 H 125/81 H 125/81 H Blood Pressure Mean 88 95 95 Blood Pressure Source Monitor Monitor Blood Pressure Position Semi-Fowlers Semi-Fowlers Blood Pressure Location Right Arm Right Arm Pulse Ox 100 100 Oxygen Delivery Method Room Air Room Air 08/30/24 17:14 08/30/24 18:00 08/30/24 18:01 Temperature 98.6 F 98.6 F Temperature Source Oral Pulse Rate 73 73 Respiratory Rate 18 16 Respiratory Effort Respiratory Depth Respiratory Pattern Blood Pressure 101/70 119/77 119/77 Blood Pressure Mean 80 91 91 Bloo (more content not included)... Normal [facility] [address] [place] [address] Instructions for Home/Discharge Instructions 08/31/24 1253 MR#: [id number] Acct: [id number] Name: GALINDO JOHNSTON Rep #: [id number] : 1980 44 From: oLri Conrad MD PCP: Dr. Inocencio Frye MD Status:ADM ROMINA Discharge Instructions Diet Discharge Diet: No restrictions DC O2, CPAP, BIPAP needs Home O2 Discharge instructions: No Dressing / Incision Discharge Activity: Return to Normal Activity May resume sexual activity in: - (Please defer sexual intercourse until cleared per Naphtha Washing System Operator at follow-up.) Weight Bearing Status: Weight bearing as tolerated Dressing / Incision Call your doctor if you observe: - (Recurrent heavy vaginal bleeding, lightheadedness, dizziness, shortness of breath, chest pain.) Follow Up Care Test Results: Test results from this visit will be discussed in further detail at your follow-up appointment, if applicable. Discharge Plan Admission Admit Date/Time: 08/30/24 18:51 Primary Reason for Your Visit: Premenopausal Menorrhagia, ABLA, Fe deficiency anemia Attending Provider: Lori Conrad Primary Care Provider: Inocencio Frye Consulting Providers: Johnny Zamora; Roxanna King Instructions Additional Instructions / Restrictions: ADDITIONAL INSTRUCTIONS/PLAN OF CARE: --shoe maker would like you to continue medroxyprogesterone 5 mg tablet daily until you have your first cycle at which point they would like you to immediately call them and likely they will increase this dose to 10 mg daily at that time. -- Please continue newly initiated oral iron supplementation which may be increased outpatient pending her toleration of this medication. It sometimes can cause constipation therefore ove [id number] stool softeners may be used as well. --Please have follow-up complete blood count at follow-up with your primary care physician as noted. --shoe maker office will contact you to arrange visit so that you also may have biopsy arranged as well as plan for upcoming robotic hysterectomy. --If at any point you have onset of heavy bleeding please immediately contact the shoe maker office. Discharge Orders/Prescriptions Prescriptions: New medroxyprogesterone 5 mg tablet 5 mg PO DAILY 30 Days Qty: 30 0RF Rx Instructions: Sports Athletic Trainer would like you to call them when start your cycle to possible increase. ferrous gluconate 324 mg (38 mg iron) tablet 324 mg PO DAILY 30 Days Qty: 30 0RF No Action ropinirole 0.5 mg tablet 1 mg PO QHS escitalopram oxalate 20 mg tablet 20 mg PO DAILY cholecalciferol (vitamin D3) 100 mcg (4,000 unit) capsule 100 mcg PO DAILY Referrals / Follow Up: Inocencio Frye MD [Primary Care Provider] - (Please follow-up in 3-5 days to review admission, have outpatient repeat complete blood count assessment.) Roxanna King DO [Med Staff - Active Staff] - (The Sports Athletic Train[employer] office will contact you with a visit.) Disposition Disposition (needs filled in before D/C Order can be placed): Home, Self Care 08/31/24 5753 Lori Conrad MD CC: Dr. Roxanna King DO; Dr. Inocencio Frye MD; Dr. Johnny Zamora MD Signed Normal [facility] Eosinophil percentageOrdered By: Johnny Zamora on 08-31-2024 Eosinophils/100 WBC (Bld) 1.7 % 0-5 [facility] Erythrocyte distribution wid th ratioOrdered By: Johnny Zamora on 08-31-2024 Erythrocyte distribution width (RBC) [Ratio] 20.9 % High 11.6-14.6 [facility] Erythrocyte distribution wid th standard deviationOrdered By: Johnny Zamora on 08-31-2024 Erythrocyte distribution width (RBC) [Ratio] 52.3 fl High 35.1-43.9 [facility] Glomerular filtration rate ( GFR) estimation/1.73 sq m using serum, plasma, or whole bOrdered By: Johnny Zamora on 08-31-2024 GFR/1.73 sq M.predicted among non-blacks MDRD (S/P/Bld) [Vol rate/Area] 111 mL/min/{1.73_m2} >60 [facility] Comment on above: mL/min/1.73m2 CKD-EP I Creatinine Equation (2020) Hematocrit Auto (Bld) [Volum e fraction]Ordered By: Johnny Zamora on 08-31-2024 Hematocrit (Bld) [Volume fraction] 26.2 % Low 37-47 [facility] Hemoglobin measurementOrdere d By: Johnny Zamora on 08-31-2024 Hemoglobin (Bld) [Mass/Vol] 7.5 g/dL Low 12.0-15.0 [facility] Immature granulocytes/100 WB C Auto (Bld)Ordered By: Johnny Zamora on 08-31-2024 Immature granulocytes/100 WBC (Bld) 0.200 % 0.0-0.9 [facility] Comment on above: IG% - Immature Granu locytes (promyelocytes, myelocytes and metamyelocytes) > 1% indicates that a LEFT SHIFT is Present. Iron+Iron Binding Capacityon 08-31-2024 TIBC 514 ug/dL High 250-450 [facility] Comment on above: Order Comment: OPHELIA FAIZAN IS DOWN THAT RUNS IRON AND TIBC Performed By: #### L 500.4050, L503.6030, L503.6550, L100.0100, L506.1001 #### [facility] [place], [place], [id number] Laboratory - Hematology and Cell countsOrdered By: Johnny Zamora on 08-31-2024 Anisocytosis Ql (Bld) 2+ [facility] MCV (mean corpuscular volume ) determinationOrdered By: Johnny Zamora on 08-31-2024 MCV (RBC) [Entitic vol] 69.9 fL Low 81-99 [facility] Mean corpuscular hemoglobin (MCH) determinationOrdered By: Johnny Zamora on 08-31-2024 MCH (RBC) [Entitic mass] 20.0 pg Low 27.0-32.0 [facility] Mean corpuscular hemoglobin concentration (MCHC) determinationOrdered By: Johnny Zamora on 08-31-2024 MCHC (RBC) [Mass/Vol] 28.6 g/dL Low 32-36 [facility] Comment on above: Delta: 25.5 on 08/30 Monocyte percentageOrdered B y: Johnny Zamora on 08-31-2024 Monocytes/100 WBC (Bld) 13.8 % High 0-10 [facility] Neutrophil percentageOrdered By: Johnny Zamora on 08-31-2024 Neutrophils/100 WBC (Bld) 67.1 % 47-70 [facility] Nucleated red blood cell per centageOrdered By: Johnny Zamora on 08-31-2024 Nucleated RBC/100 WBC (Bld) [Ratio] 0 % 0-5 [facility] Platelet countOrdered By: Zonia Zmaora on 08-31-2024 Platelets (Bld) [#/Vol] 162 10*3/uL 150-450 [facility] Potassium measurement (mass/ volume)Ordered By: Johnny Zamora on 08-31-2024 Potassium (Unsp spec) [Mass/Vol] 3.8 mmol/L 3.3-5.1 [facility] RBC Auto (Bld) [#/Vol]Ordere d By: Johnny Zamora on 08-31-2024 RBC (Bld) [#/Vol] 3.75 10*6/uL Low 4.2-5.4 [facility] Serum creatinine measurement (mass/volume)Ordered By: Johnny Zamora on 08-31-2024 Creatinine [Mass/Vol] 0.62 mg/dL Low 0.70-1.20 [facility] Serum glucose measurement (m ass/volume)Ordered By: Johnny Zamora on 08-31-2024 Glucose [Mass/Vol] 99 mg/dL 70-[address] [facility] Serum or plasma calcium mao urement (mass/volume)Ordered By: Johnny Zamora on 08-31-2024 Calcium [Mass/Vol] 8.8 mg/dL 7.6-11.[address] [facility] Serum or plasma urea nitroge n measurement (mass/volume)Ordered By: Johnny Zamora on 08-31-2024 Urea nitrogen [Mass/Vol] 4 mg/dL 4-19 [facility] Sodium levelOrdered By: Sanju Zamora on 08-31-2024 Sodium [Moles/Vol] 139 mmol/L 133-[address] [facility] T4 Free Directon 08-31-2024 T4 FREE DIRECT 1.10 ng/dL Normal 0.76-1.46 [facility] Comment on above: Performed By: #### L 500.4050, L503.4107, L503.3250, L100.0100, L506.1001 #### [facility] [address] [place], [address] T4 freeOrdered By: Roxanna Olman on 08-31-2024 Free T4 [Mass/Vol] 1.10 ng/dL 0.76-1.[address] [facility] TSH DL <= 0.005 mIU/L QnOrde red By: Roxanna Thurman on 08-31-2024 TSH Qn 2.870 uIU/mL 0.300-4.200 [facility] Thyroid Stim Hormone (TSH)on 08-31-2024 TSH 2.870 uIU/mL Normal 0.300-4.200 [facility] Comment on above: Performed By: #### L 500.4050, L503.6030, L503.6550, L100.0100, L506.1001 #### [facility] [address] [place], [address] Transvaginal Non-on 08-31-2024 Transvaginal Non- [facility] [address] [place] [address] Transvaginal Non- MR#: [id number] Acct: [id number] Name: GALINDO JOHNSTON Rep #: [id number] : 1980 F 44 From: Darrin godinez MD PCP: Dr. Inocencio Frye MD Status: ADM ROMINA Study: Transvaginal Non- Date of Exam: Exam# [id number] Ordering Dr: Lori Conrad MD PROCEDURE: TRANSVAGINAL NON- 08/31/2024 REASON FOR EXAM: ABLA, HEAVY CYCLES TECHNIQUE: TRANSVAGINAL NON- COMPARISON: None FINDINGS: LMP: August 14, 2024. Measurements: Uterus: 12.1 cm x 8.5 cm x 8.2 cm with a volume of 442.86 mL. A nabothian cyst is seen. Findings suggestive of a 6.5 cm 6.7 cm 6.5 cm subendometrial fibroid. Endometrial Thickness: Not well visualized. Right Ovary: 3.5 cm x 3.6 cm x with a volume of 12.61 mL. Left Ovary: 3.3 cm x 2.9 cm x 2.4 cm with a volume of 12.01 mL. Uterus: Enlarged uterus. Findings suggestive of a 6.5 cm 6.7 cm 6.5 cm sub endometrial fibroid. Endometrium: Not well visualized as described. Right ovary: 1.8 cm 1.8 cm 1.2 cm resolving cyst. Left ovary: Normal size and echotexture. Other: No large pelvic mass identified. US/Transvaginal Non- IMPRESSION: Findings suggestive of a 6.5 cm 6.7 cm 6.5 cm subendometrial fibroid. Reading Location: [place] [address] CC: Dr. Lori Conrad MD; Dr. Inocencio Frye MD Manager Publishing: Signed Normal [facility] White blood cell (WBC) count Ordered By: Johnny Zamora on 08-31-2024 WBC (Bld) [#/Vol] 4.1 10*3/uL Low 4.4-11.[address] [facility] Absolute lymphocyte countOrd ered By: Joselito Maldonado on 08-30-2024 Lymphocytes Auto (Unsp spec) [#/Vol] 1.12 10*3/uL 0.83-4.51 [facility] Absolute lymphocyte countOrd ered By: Inocencio Frye on 08-30-2024 Lymphocytes Auto (Unsp spec) [#/Vol] 0.93 10*3/uL 0.83-4.51 [facility] Absolute neutrophil countOrd ered By: Joselito Maldonado on 08-30-2024 Neutrophils (Bld) [#/Vol] 3.0 10*3/uL 2.0-7.7 [facility] Absolute neutrophil countOrd ered By: Inocencio Frye on 08-30-2024 Neutrophils (Bld) [#/Vol] 1.6 10*3/uL Low 2.0-7.7 [facility] Anion gap in Serum or Plasma Ordered By: Joselito Maldonado on 08-30-2024 Anion gap [Moles/Vol] 13 mmol/L 07-07 [facility] Anion gap in Serum or Plasma Ordered By: Inocencio Frye on 08-30-2024 Anion gap [Moles/Vol] 10 mmol/L 07-07 [facility] Automated lymphocyte count a s percentage of total leukocytesOrdered By: Joselito Maldonado on 08-30-2024 Lymphocytes/100 WBC Auto (Unsp spec) 22.6 % [facility] Automated lymphocyte count a s percentage of total leukocytesOrdered By: Inocencio Frye on 08-30-2024 Lymphocytes/100 WBC Auto (Unsp spec) 29.5 % [facility] BRCon 08-30-[address] [facility] Comment on above: Result Comment: [id number] OP RC TRANSFUSED 08/30/24 1824 [id number] OP RC TRANSFUSED 08/30/24 1649 Performed By: #### L 500.2500, L100.0100 #### [facility] [address] [place], [address] BUN/creatinine ratioOrdered By: Joselito Maldonado on 08-30-2024 Urea nitrogen/Creatinine [Mass ratio] 12.8 mg/mg 12-12 [facility] BUN/creatinine ratioOrdered By: Inocencio Frye on 08-30-2024 Urea nitrogen/Creatinine [Mass ratio] 12.5 mg/mg 12-12 [facility] Basic Metabolic Profile (BMP )on 08-30-2024 BUN/CRE 12.8 RATIO Normal 12-12 [facility] Comment on above: Performed By: #### L 500.4050, L503.6030, L503.6550, L100.0100, L506.1001 #### [facility] [address] [place], [address] Calcium [Mass/Vol] 9.2 mg/dL Normal 7.6-11.[address] [facility] Comment on above: Performed By: #### L 500.4050, L503.6030, L503.6550, L100.0100, L506.1001 #### [facility] [address] [place], [address] Chloride [Moles/Vol] 106 mmol/L Normal 98-108 [facility] Comment on above: Performed By: #### L 500.4050, L503.6030, L503.6550, L100.0100, L506.1001 #### [facility] [address] [place], [address] CO2 [Moles/Vol] 19.2 mmol/L Low 21.0-32.0 [facility] Comment on above: Performed By: #### L 500.4050, L503.6030, L503.6550, L100.0100, L506.1001 #### [facility] [address] [place], [address] Creatinine [Mass/Vol] 0.66 mg/dL Low 0.70-1.20 [facility] Comment on above: Performed By: #### L 500.4050, L503.6030, L503.6550, L100.0100, L506.1001 #### [facility] [address] [place], [address] ECRCL 99.69 ml/min Normal 50-250 [facility] Comment on above: Performed By: #### L 500.4050, L503.6030, L503.6550, L100.0100, L506.1001 #### [facility] [address] [place], [address] GAP 13 Normal 5-15 [facility] Comment on above: Performed By: #### L 500.4050, L503.6030, L503.6550, L100.0100, L506.1001 #### [facility] [address] [place], [address] GFR/1.73 sq M.predicted among non-blacks MDRD (S/P/Bld) [Vol rate/Area] 109 mL/min/{1.73_m2} Normal >60 [facility] Comment on above: Result Comment: mL/m in/1.73m2 CKD-EPI Creatinine Equation (2020) Performed By: #### L 500.4050, L503.6030, L503.6550, L100.0100, L506.1001 #### [facility] [address] [place], [address] Glucose [Mass/Vol] 97 mg/dL Normal 70-[address] [facility] Comment on above: Performed By: #### L 500.4050, L503.6030, L503.6550, L100.0100, L506.1001 #### [facility] [address] [place], [address] Potassium [Moles/Vol] 3.8 mmol/L Normal 3.3-5.1 [facility] Comment on above: Result Comment: Hemo lysis present, Results??could be affected. ?? Performed By: #### L 500.4050, L503.6030, L503.6550, L100.0100, L506.1001 #### [facility] [address] [place], [address] Sodium [Moles/Vol] 139 mmol/L Normal 133-[address] [facility] Comment on above: Performed By: #### L 500.4050, L503.6030, L503.6550, L100.0100, L506.1001 #### [facility] [address] [place], [address] Urea nitrogen [Mass/Vol] 8 mg/dL Normal 4-19 [facility] Comment on above: Performed By: #### L 500.4050, L503.6030, L503.6550, L100.0100, L506.1001 #### [facility] [address] [place], [address] Basophil percentageOrdered B y: Joselito Tamragett on 08-30-2024 Basophils/100 WBC (Bld) 1.0 % 0-1 [facility] Basophil percentageOrdered B y: Inocencio Frye on 08-30-2024 Basophils/100 WBC (Bld) 1.3 % High 0-1 [facility] Bilirubin, totalOrdered By: Inocencio Frye on 08-30-2024 Bilirubin [Mass/Vol] 0.40 mg/dL 0.00-1.30 [facility] CBC W/Diff, Automatedon Hemoglobin (Bld) [Mass/Vol] 5.9 g/dL Invalid Interpretation Code 12.0-15.0 [facility] Comment on above: Result Comment: CRITICAL VALUE CALLED TO DREA VIERA 08/30/24 [address]. RESULTS READ BACK BY SAME. Performed By: #### L 500.4050, L503.6030, L503.6550, L100.0100, L506.1001 #### [facility] [address] [place], [address] MPV TNP Normal 6.2-12.0 [facility] Comment on above: Performed By: #### L 500.4050, L503.6030, L503.6550, L100.0100, L506.1001 #### [facility] [address] [place], [address] Absolute Lymph 1.12 X10 3/uL Normal 0.83-4.51 [facility] Comment on above: Performed By: #### L 500.4050, L503.6030, L503.6550, L100.0100, L506.1001 #### [facility] [address] [place], [address] Absolute Neut 3.0 X10 3/uL Normal 2.0-7.7 [facility] Comment on above: Performed By: #### L 500.4050, L503.6030, L503.6550, L100.0100, L506.1001 #### [facility] [address] [place], [address] Basophils/100 WBC (Bld) 1.0 % Normal 0-1 [facility] Comment on above: Performed By: #### L 500.4050, L503.6030, L503.6550, L100.0100, L506.1001 #### [facility] [address] [place], [address] Eosinophils/100 WBC (Bld) 2.2 % Normal 0-5 [facility] Comment on above: Performed By: #### L 500.4050, L503.6030, L503.6550, L100.0100, L506.1001 #### [facility] [address] [place], [address] Erythrocyte distribution width (RBC) [Ratio] 18.8 % High 11.6-14.6 [facility] Comment on above: Performed By: #### L 500.4050, L503.6030, L503.6550, L100.0100, L506.1001 #### [facility] [address] [place], [address] Hematocrit (Bld) [Volume fraction] 23.1 % Low 37-47 [facility] Comment on above: Performed By: #### L 500.4050, L503.6030, L503.6550, L100.0100, L506.1001 #### [facility] [address] [place], [address] IG% 0.400 Normal 0.0-0.9 [facility] Comment on above: Result Comment: IG% - Immature Granulocytes (promyelocytes, myelocytes and metamyelocytes) > 1% indicates that a LEFT SHIFT is Present. Performed By: #### L 500.4050, L503.6030, L503.6550, L100.0100, L506.1001 #### [facility] [address] [place], [address] Lymphocytes/100 WBC (Bld) 22.6 % Normal 19-41 [facility] Comment on above: Performed By: #### L 500.4050, L503.6030, L503.6550, L100.0100, L506.1001 #### [facility] [address] [place], [address] MCH (RBC) [Entitic mass] 17.1 pg Low 27.0-32.0 [facility] Comment on above: Performed By: #### L 500.4050, L503.6030, L503.6550, L100.0100, L506.1001 #### [facility] [address] [place], [address] MCHC (RBC) [Mass/Vol] 25.5 g/dL Low 32-36 [facility] Comment on above: Performed By: #### L 500.4050, L503.6030, L503.6550, L100.0100, L506.1001 #### [facility] [address] [place], [address] MCV (RBC) [Entitic vol] 67.0 fL Low 81-99 [facility] Comment on above: Performed By: #### L 500.4050, L503.6030, L503.6550, L100.0100, L506.1001 #### [facility] [address] [place], [address] Monocytes/100 WBC (Bld) 12.7 % High 0-10 [facility] Comment on above: Performed By: #### L 500.4050, L503.6030, L503.6550, L100.0100, L506.1001 #### [facility] [address] [place], [address] Neutrophils/100 WBC (Bld) 61.1 % Normal 47-70 [facility] Comment on above: Performed By: #### L 500.4050, L503.6030, L503.6550, L100.0100, L506.1001 #### [facility] [address] [place], [address] Nucleated RBC (Bld) [#/Vol] 0 10*3/uL Normal 0-5 [facility] Comment on above: Performed By: #### L 500.4050, L503.6030, L503.6550, L100.0100, L506.1001 #### [facility] [address] [place], [address] Platelets (Bld) [#/Vol] 204 10*3/uL Normal 150-450 [facility] Comment on above: Performed By: #### L 500.4050, L503.6030, L503.6550, L100.0100, L506.1001 #### [facility] [address] [place], [address] RBC (Bld) [#/Vol] 3.45 10*6/uL Low 4.2-5.4 [facility] Comment on above: Performed By: #### L 500.4050, L503.6030, L503.6550, L100.0100, L506.1001 #### [facility] [address] [place], [address] RDW SD 44.3 fl High 35.1-43.9 [facility] Comment on above: Performed By: #### L 500.4050, L503.6030, L503.6550, L100.0100, L506.1001 #### [facility] [address] [place], [address] WBC (Bld) [#/Vol] 5.0 10*3/uL Normal 4.4-11.[address] [facility] Comment on above: Performed By: #### L 500.4050, L503.6030, L503.6550, L100.0100, L506.1001 #### [facility] [address] [place], [address] Absolute Lymph 0.93 X10 3/uL Normal 0.83-4.51 [facility] Comment on above: Performed By: #### L 500.4050, L503.6030, L503.6550, L100.0100, L506.1001 #### [facility] [address] [place], [address] Absolute Neut 1.6 X10 3/uL Low 2.0-7.7 [facility] Comment on above: Performed By: #### L 500.4050, L503.6030, L503.6550, L100.0100, L506.1001 #### [facility] [address] [place], [address] Basophils/100 WBC (Bld) 1.3 % High 0-1 [facility] Comment on above: Performed By: #### L 500.4050, L503.6030, L503.6550, L100.0100, L506.1001 #### [facility] [address] [place], [address] Eosinophils/100 WBC (Bld) 2.9 % Normal 0-5 [facility] Comment on above: Performed By: #### L 500.4050, L503.6030, L503.6550, L100.0100, L506.1001 #### [facility] [address] [place], [address] Erythrocyte distribution width (RBC) [Ratio] 18.6 % High 11.6-14.6 [facility] Comment on above: Performed By: #### L 500.4050, L503.6030, L503.6550, L100.0100, L506.1001 #### [facility] [address] [place], [address] Hematocrit (Bld) [Volume fraction] 21.4 % Low 37-47 [facility] Comment on above: Performed By: #### L 500.4050, L503.6030, L503.6550, L100.0100, L506.1001 #### [facility] [address] [place], [address] Hemoglobin (Bld) [Mass/Vol] 5.5 g/dL Invalid Interpretation Code 12.0-15.0 [facility] Comment on above: Performed By: #### L 500.4050, L503.6030, L503.6550, L100.0100, L506.1001 #### [facility] [address] [place], [address] IG% 0.000 Normal 0.0-0.9 [facility] Comment on above: Result Comment: IG% - Immature Granulocytes (promyelocytes, myelocytes and metamyelocytes) > 1% indicates that a LEFT SHIFT is Present. Performed By: #### L 500.4050, L503.6030, L503.6550, L100.0100, L506.1001 #### [facility] [address] [place], [address] Lymphocytes/100 WBC (Bld) 29.5 % Normal 19-41 [facility] Comment on above: Performed By: #### L 500.4050, L503.6030, L503.6550, L100.0100, L506.1001 #### [facility] [address] [place], [address] MCH (RBC) [Entitic mass] 17.1 pg Low 27.0-32.0 [facility] Comment on above: Performed By: #### L 500.4050, L503.6030, L503.6550, L100.0100, L506.1001 #### [facility] [address] [place], [address] MCHC (RBC) [Mass/Vol] 25.7 g/dL Low 32-36 [facility] Comment on above: Performed By: #### L 500.4050, L503.6030, L503.6550, L100.0100, L506.1001 #### [facility] [address] [place], [address] MCV (RBC) [Entitic vol] 66.7 fL Low 81-99 [facility] Comment on above: Performed By: #### L 500.4050, L503.6030, L503.6550, L100.0100, L506.1001 #### [facility] [address] [place], [address] Monocytes/100 WBC (Bld) 17.1 % High 0-10 [facility] Comment on above: Performed By: #### L 500.4050, L503.6030, L503.6550, L100.0100, L506.1001 #### [facility] [address] [place], [address] Neutrophils/100 WBC (Bld) 49.2 % Normal 47-70 [facility] Comment on above: Performed By: #### L 500.4050, L503.6030, L503.6550, L100.0100, L506.1001 #### [facility] [address] [place], [address] Nucleated RBC (Bld) [#/Vol] 0 10*3/uL Normal 0-5 [facility] Comment on above: Performed By: #### L 500.4050, L503.6030, L503.6550, L100.0100, L506.1001 #### [facility] [address] [place], [address] Platelets (Bld) [#/Vol] 189 10*3/uL Normal 150-450 [facility] Comment on above: Performed By: #### L 500.4050, L503.6030, L503.6550, L100.0100, L506.1001 #### [facility] [address] [place], [address] RBC (Bld) [#/Vol] 3.21 10*6/uL Low 4.2-5.4 [facility] Comment on above: Performed By: #### L 500.4050, L503.6030, L503.6550, L100.0100, L506.1001 #### [facility] [address] [place], [address] RDW SD 43.9 fl Normal 35.1-43.9 [facility] Comment on above: Performed By: #### L 500.4050, L503.6030, L503.6550, L100.0100, L506.1001 #### [facility] [address] [place], [address] WBC (Bld) [#/Vol] 3.2 10*3/uL Low 4.4-11.[address] [facility] Comment on above: Performed By: #### L 500.4050, L503.6030, L503.6550, L100.0100, L506.1001 #### [facility] [address] [place], [address] Carbon dioxide, total [Moles /volume] in Central venous bloodOrdered By: Joselito Maldonado on 08-30-2024 CO2 [Moles/Vol] 19.2 mmol/L Low 21.0-32.0 [facility] Carbon dioxide, total [Moles /volume] in Central venous bloodOrdered By: Inocencio Frye on 08-30-2024 CO2 [Moles/Vol] 21.7 mmol/L 21.0-32.0 [facility] Chloride assayOrdered By: Rush Maldonado on 08-30-2024 Chloride [Moles/Vol] 106 mmol/L 98-108 [facility] Chloride assayOrdered By: Chacha Frye on 08-30-2024 Chloride [Moles/Vol] 107 mmol/L 98-108 [facility] Comprehensive Metabolic Prof ilon 08-30-2024 Albumin [Mass/Vol] 4.5 g/dL Normal 3.5-5.[address] [facility] Comment on above: Performed By: #### L 500.4050, L503.6030, L503.6550, L100.0100, L506.1001 #### [facility] [address] [place], [address] Albumin/Globulin [Mass ratio] 1.8 {ratio} Normal 0.9-2.4 [facility] Comment on above: Performed By: #### L 500.4050, L503.6030, L503.6550, L100.0100, L506.1001 #### [facility] [address] [place], [address] ALK PHOS 44 U/L Normal 35-104 [facility] Comment on above: Performed By: #### L 500.4050, L503.6030, L503.6550, L100.0100, L506.1001 #### [facility] [address] [place], [address] ALT [Catalytic activity/Vol] 7 U/L Normal <=34 [facility] Comment on above: Performed By: #### L 500.4050, L503.6030, L503.6550, L100.0100, L506.1001 #### [facility] [address] [place], [address] AST [Catalytic activity/Vol] 13 U/L Normal <=31 [facility] Comment on above: Performed By: #### L 500.4050, L503.6030, L503.6550, L100.0100, L506.1001 #### [facility] [address] [place], [address] Bilirubin [Mass/Vol] 0.40 mg/dL Normal 0.00-1.30 [facility] Comment on above: Performed By: #### L 500.4050, L503.6030, L503.6550, L100.0100, L506.1001 #### [facility] [address] [place], [address] BUN/CRE 12.5 RATIO Normal 10-20 [facility] Comment on above: Performed By: #### L 500.4050, L503.6030, L503.6550, L100.0100, L506.1001 #### [facility] [address] [place], [address] Calcium [Mass/Vol] 9.0 mg/dL Normal 7.6-11.[address] [facility] Comment on above: Performed By: #### L 500.4050, L503.6030, L503.6550, L100.0100, L506.1001 #### [facility] [address] [place], [address] Chloride [Moles/Vol] 107 mmol/L Normal 98-108 [facility] Comment on above: Performed By: #### L 500.4050, L503.6030, L503.6550, L100.0100, L506.1001 #### [facility] [address] [place], [address] CO2 [Moles/Vol] 21.7 mmol/L Normal 21.0-32.0 [facility] Comment on above: Performed By: #### L 500.4050, L503.6030, L503.6550, L100.0100, L506.1001 #### [facility] [address] [place], [address] Creatinine [Mass/Vol] 0.63 mg/dL Low 0.70-1.20 [facility] Comment on above: Performed By: #### L 500.4050, L503.6030, L503.6550, L100.0100, L506.1001 #### [facility] [address] [place], [address] GAP 10 Normal 5-15 [facility] Comment on above: Performed By: #### L 500.4050, L503.6030, L503.6550, L100.0100, L506.1001 #### [facility] [address] [place], [address] GFR/1.73 sq M.predicted among non-blacks MDRD (S/P/Bld) [Vol rate/Area] 111 mL/min/{1.73_m2} Normal >60 [facility] Comment on above: Result Comment: mL/m in/1.73m2 CKD-EPI Creatinine Equation (2020) Performed By: #### L 500.4050, L503.6030, L503.6550, L100.0100, L506.1001 #### [facility] [address] [place], [address] Globulin (S) [Mass/Vol] 2.6 g/dL Normal 2.2-4.2 [facility] Comment on above: Performed By: #### L 500.4050, L503.6030, L503.6550, L100.0100, L506.1001 #### [facility] [address] [place], [address] Glucose [Mass/Vol] 94 mg/dL Normal 70-[address] [facility] Comment on above: Performed By: #### L 500.4050, L503.6030, L503.6550, L100.0100, L506.1001 #### [facility] [address], [address] Potassium [Moles/Vol] 3.8 mmol/L Normal 3.3-5.1 [facility] Comment on above: Performed By: #### L 500.4050, L503.6030, L503.6550, L100.0100, L506.1001 #### [facility] [address] [place], [address] Sodium [Moles/Vol] 138 mmol/L Normal 133-[address] [facility] Comment on above: Performed By: #### L 500.4050, L503.6030, L503.6550, L100.0100, L506.1001 #### [facility] [address] [place], [address] T PROT 7.0 g/dL Normal 5.9-8.4 [facility] Comment on above: Performed By: #### L 500.4050, L503.6030, L503.6550, L100.0100, L506.1001 #### [facility] [address] [place], [address] Urea nitrogen [Mass/Vol] 8 mg/dL Normal 4-19 [facility] Comment on above: Performed By: #### L 500.4050, L503.6030, L503.6550, L100.0100, L506.1001 #### [facility] [address] [place], [address] Emergency Department Summary on 08-30-2024 Emergency Department Summary [facility] Medical Records Department [address] [place] [address] Emergency Department Summary 08/30/24 MR#: [id number] Acct: [id number] Name: GALINDO JOHNSTON Rep #: [id number] : 1980 44 From: Joselito Maldonado DO PCP: Dr. Inocencio Frye MD Status:REG ER Location: ED HPI History of Present Illness Chief Complaint: Abn Labs Narrative Narrative: C chief complaint and HPI: Anemia. 44-year-old female with past medical history of iron deficiency anemia presents for evaluation of anemia. Patient states she had a routine blood work performed in which she was found to have a hemoglobin of 5.5. She states that she was sent to the emergency department. She states she has not taken her iron pills for 1 week. Patient endorses heavy menstrual cycles for several years. They are regular when she has them monthly. States her last menstrual cycle ended about a week ago. She denies any lightheadedness, headache, fatigue, paleness, abdominal pain, nausea, vomiting, bloody bowel movements. She has never had a colonoscopy. She denies any daily NSAID use. Denies any alcohol abuse. No history of ulcers. Review of systems: See HPI Medications: As listed on the chart Allergies: As listed on the chart PFSH: Per chart Vital signs: As listed on the chart. Reviewed. Physical exam: Gen: A O x3, NAD Head: Normocephalic, atraumatic Eyes: No sclera icterus, conjunctiva clear ENT: Moist mucous membranes Neck: Trachea midline, No JVD CV: RRR, no murmurs, no peripheral edema Resp: Lungs CTA BL, no w/r/c GI: Abd soft, non-distended, non-tender, no r/r/g Rectal: Nonthrombosed external hemorrhoids. Normal tone and sensation. No masses, fluctuance, or tenderness. No pain out of proportion. Stool is brown on the gloved finger. Musc: Full ROM, no deformity Skin: Warm, dry, pale Neuro: Alert, oriented, grossly intact, sensation intact Psych: Cooperative, appropriate mood and affect PFSH PFSH Medical History no medical history Home Medications ???Medication ???Instructions ???Recorded ???Last Taken ???Type cholecalciferol (vitamin D3) 100 100 mcg PO DAILY 08/30/24 Unknown History mcg (4,000 unit) capsule escitalopram oxalate 20 mg tablet 20 mg PO DAILY 08/30/24 Unknown H istory ropinirole 0.5 mg tablet 1 mg PO QHS 08/30/24 Unknown Histo ry Allergy/AdvReac Type Severity Reaction Status Date / Time codeine Allergy PT UNSURE Verified 08/30/24 14:28 OF REACTION Family History no significant family his Surgical History no surgical history Social History Smoking Status: Never smoker EXAM Physical Exam Const Vital Signs: 08/30/24 14:29 08/30/24 15:28 08/30/24 16:00 Temperature 97.1 F L Temperature Source Temporal Pulse Rate 118 H 81 70 Respiratory Rate 18 15 16 Blood Pressure 153/58 H 121/75 H 131/74 H Blood Pressure Mean 89 90 93 Blood Pressure Source Blood Pressure Position Blood Pressure Location Pulse Ox 100 95 100 Oxygen Delivery Method Room Air Room Air Room Air 08/30/24 16:54 08/30/24 16:59 08/30/24 17:00 Temperature 98.3 F 98.3 F Temperature Source Oral Oral Pulse Rate 84 77 Respiratory Rate 20 H 15 Blood Pressure 122/72 H 125/81 H 125/81 H Blood Pressure Mean 88 95 95 Blood Pressure Source Monitor Monitor Blood Pressure Position Semi-Fowlers Semi-Fowlers Blood Pressure Location Right Arm Right Arm Pulse Ox 100 100 Oxygen Delivery Method Room Air Room Air 08/30/24 17:14 08/30/24 18:00 08/30/24 18:01 Temperature 98.6 F 98.6 F Temperature Source Oral Pulse Rate 73 73 Respiratory Rate 18 16 Blood Pressure 101/70 119/77 119/77 Blood Pressure Mean 80 91 91 Blood Pressure Source Monitor Blood Pressure Position Semi-Fowlers Blood Pressure Location Right Arm Pulse Ox 100 100 Oxygen Delivery Method Room Air 08/30/24 18:11 08/30/24 18:14 08/30/24 18:32 Temperature 98.3 F 98.3 F 98.3 F Temperature Source Oral Oral Oral Pulse Rate 73 73 Respiratory Rate 18 17 Blood Pressure 119/77 119/77 Blood Pressure Mean 91 91 Blood Pressure Source Monitor Monitor Blood Pressure Position Semi-Fowlers Semi-Fowlers Blood Pressure Location Right Arm Left Arm Pulse Ox 100 100 Oxygen Delivery Method Room Air Room Air 08/30/24 18:47 08/30/24 18:53 Temperature 98.5 F Temperature Source Oral Pulse Rate 82 Respiratory Rate 17 Blood Pressure 119/77 113/80 Blood Pressure Mean 91 91 Blood Pressure Source Monitor Blood Pressure Position Semi-Fowlers Blood Pressure Location Right Arm Pulse Ox 100 Oxygen Delivery Method Room Air MDM MDM MDM Narrative Medical deci (more content not included)... Normal [facility] Eosinophil percentageOrdered By: Joselito Maldonado on 08-30-2024 Eosinophils/100 WBC (Bld) 2.2 % 0-5 [facility] Eosinophil percentageOrdered By: Inocencio Frye on 08-30-2024 Eosinophils/100 WBC (Bld) 2.9 % 0-5 [facility] Erythrocyte distribution wid th ratioOrdered By: Joselito Maldonado on 08-30-2024 Erythrocyte distribution width (RBC) [Ratio] 18.8 % High 11.6-14.6 [facility] Erythrocyte distribution wid th ratioOrdered By: Inocencio Frye on 08-30-2024 Erythrocyte distribution width (RBC) [Ratio] 18.6 % High 11.6-14.6 [facility] Erythrocyte distribution wid th standard deviationOrdered By: Joselito Le on 08-30-2024 Erythrocyte distribution width (RBC) [Ratio] 44.3 fl High 35.1-43.9 [facility] Erythrocyte distribution wid th standard deviationOrdered By: Inocencio Frye on 08-30-2024 Erythrocyte distribution width (RBC) [Ratio] 43.9 fl 35.1-43.9 [facility] Ferritinon 08-30-2024 Ferritin [Mass/Vol] 4 ng/mL Low 22-378 [facility] Comment on above: Performed By: #### L 500.4050, L503.6030, L503.6550, L100.0100, L506.1001 #### [facility] [address] [place], [place], [id number] Glomerular filtration rate ( GFR) estimation/1.73 sq m using serum, plasma, or whole bOrdered By: Joselito Maldonado on 08-30-2024 GFR/1.73 sq M.predicted among non-blacks MDRD (S/P/Bld) [Vol rate/Area] 109 mL/min/{1.73_m2} >60 [facility] Comment on above: mL/min/1.73m2 CKD-EP I Creatinine Equation (2020) Glomerular filtration rate ( GFR) estimation/1.73 sq m using serum, plasma, or whole bOrdered By: Inocencio Frye on 08-30-2024 GFR/1.73 sq M.predicted among non-blacks MDRD (S/P/Bld) [Vol rate/Area] 111 mL/min/{1.73_m2} >60 [facility] Comment on above: mL/min/1.73m2 CKD-EP I Creatinine Equation (2020) H AND P Exam - Hospitaliston 08-30-2024 H&P Exam - Hospitalist [facility] Medical Records Department [address] [place] [address] H P Exam - Hospitalist 08/30/24 1852 MR#: [id number] Acct: [id number] Name: GALINDO JOHNSTON Rep #: [id number] : 1980 44 From: Johnny Zamora MD PCP: Dr. Inocencio Frye MD Status:ADM ROMINA Location: [place] [address] HPI - General General Date of Admission: 08/30/24 Date of Service: 08/30/24 Chief Complaint: Abnormal lab, severe anemia sent by PCP HPI Narrative GALINDO JOHNSTON, is a 44 F with history of chronic iron deficiency anemia from menometrorrhagia was sent to ED by PCP for low hemoglobin 5.5 g%. Patient has history of chronic anemia due to abnormal menstrual period. She gets frequent iron infusion. She denies GI bleed including hematemesis melena, hematochezia or hemoptysis or external bleeding. She said she had last menstrual period lasted for 6 to 7 days out of which first 2 days were very heavy. She finished her last menstrual period about 5 to 7 days ago She had abnormal periods/menorrhagia during her younger days and then became irregular. She started having irregular heavy menstrual period from last 2 to 3 years. In ED, 2 units of PRBC ordered and patient is second unit of PRBC transfusion. She does not have symptoms of anemia including dyspnea on exertion, dizziness, lightheadedness, palpitation, near- syncope or syncope. No chest pain pressure or tightness In ED when she first came in she was tachycardic 118/min but later on vitals including heart rate became normal [facility] Medical History Anxiety Former smoker Medical History no medical history Home Medications ???Medication ???Instructions ???Recorded ???Last Taken ???Type cholecalciferol (vitamin D3) 100 100 mcg PO DAILY 08/30/24 Unknown History mcg (4,000 unit) capsule escitalopram oxalate 20 mg tablet 20 mg PO DAILY 08/30/24 Unknown H istory ropinirole 0.5 mg tablet 1 mg PO QHS 08/30/24 Unknown Histo ry Allergy/AdvReac Type Severity Reaction Status Date / Time codeine Allergy PT UNSURE Verified 08/30/24 14:28 OF REACTION Family History no significant family his Surgical History no surgical history Social History Smoking Status: Never smoker ROS ROS Narrative Constitutional: Reports no acute fatigue and weakness. No fever. HEENT: Reports systems reviewed and no addt'l complaints, except as documented Respiratory/Chest: No acute shortness of breath or respiratory distress or wheezing. CVS: No chest pressure or tightness. Gastrointestinal: Denies coffee ground emesis, hematemesis or vomiting Genitourinary: Irregular menstrual period. Denies burning urination or new urinary tract symptoms Musculoskeletal: Denies acute joint pain or limited range of motion. No acute injury Neurologic: Denies seizure-like symptoms. skin: No ulcer. No rash Endocrinology: Reports systems reviewed and no addt'l complaints, except as documented Hematologic/Lymphatic: Reports systems reviewed and no addt'l complaints, except as documented Rest 14 ROS are negative except as mentioned in HPI Vital Signs Vital Signs Vital Signs: 08/30/24 14:29 08/30/24 15:28 08/30/24 16:00 Temperature 97.1 F L Temperature Source Temporal Pulse Rate 118 H 81 70 Respiratory Rate 18 15 16 Blood Pressure 153/58 H 121/75 H 131/74 H Blood Pressure Mean 89 90 93 Blood Pressure Source Blood Pressure Position Blood Pressure Location Pulse Ox 100 95 100 Oxygen Delivery Method Room Air Room Air Room Air 08/30/24 16:54 08/30/24 16:59 08/30/24 17:00 Temperature 98.3 F 98.3 F Temperature Source Oral Oral Pulse Rate 84 77 Respiratory Rate 20 H 15 Blood Pressure 122/72 H 125/81 H 125/81 H Blood Pressure Mean 88 95 95 Blood Pressure Source Monitor Monitor Blood Pressure Position Semi-Fowlers Semi-Fowlers Blood Pressure Location Right Arm Right Arm Pulse Ox 100 100 Oxygen Delivery Method Room Air Room Air 08/30/24 17:14 08/30/24 18:00 08/30/24 18:01 Temperature 98.6 F 98.6 F Temperature Source Oral Pulse Rate 73 73 Respiratory Rate 18 16 Blood Pressure 101/70 119/77 119/77 Blood Pressure Mean 80 91 91 Blood Pressure Source Monitor Blood Pressure Position Semi-Fowlers Blood Pressure Location Right Arm Pulse Ox 100 100 Oxygen Delivery Method Room Air 08/30/24 18:11 08/30/24 18:14 08/30/24 18:32 Temperature 98.3 F 98.3 F 98.3 F Temperature Source Oral Oral Oral Pulse Rate 73 73 Respiratory Rate 18 17 Blood Pressure 119/77 119/77 Blood Pressure Mean 91 91 Blood Pressure Source Monitor Monitor Blood Pressure Position Semi-Fowlers Semi-Fowlers Blood Pressure Location Right Arm Left Arm Pulse Ox 100 100 (more content not included)... Normal [facility] HH, Hemoglobin AND Hematocri ton 08-30-2024 Hematocrit (Bld) [Volume fraction] 26.6 % Low [address] [place] [address] Comment on above: Order Comment: Comme nts: After blood transfusion Performed By: #### L 100.0600 #### [facility] [address] [place], [address] Hemoglobin (Bld) [Mass/Vol] 7.7 g/dL Low 12.0-15.0 [facility] Comment on above: Order Comment: Comme nts: After blood transfusion Performed By: #### L 100.0600 #### [facility] [address] [place], [address] Hematocrit Auto (Bld) [Volum e fraction]Ordered By: Joselito Maldonado on 08-30-2024 Hematocrit (Bld) [Volume fraction] 23.1 % [address] Hematocrit Auto (Bld) [Volum e fraction]Ordered By: Inocencio Frye on 08-30-2024 Hematocrit (Bld) [Volume fraction] 21.4 % Low [address] [place] [address] Hemoglobin measurementOrdere d By: Joselito Maldonado on 08-30-2024 Hemoglobin (Bld) [Mass/Vol] 5.9 g/dL Low 12.0-15.0 [facility] Comment on above: CRITICAL VALUE HESTER D TO DREA VIERA08/30/24 [address].RESULTS READ BACK BY SAME. Hemoglobin measurementOrdere d By: Inocencio Frye on 08-30-2024 Hemoglobin (Bld) [Mass/Vol] 5.5 g/dL Low 12.0-15.0 [facility] Immature granulocytes/100 WB C Auto (Bld)Ordered By: Joselito Maldonado on 08-30-2024 Immature granulocytes/100 WBC (Bld) 0.400 % 0.0-0.9 [facility] Comment on above: IG% - Immature Granu locytes (promyelocytes, myelocytes and metamyelocytes) > 1% indicates that a LEFT SHIFT is Present. Immature granulocytes/100 WB C Auto (Bld)Ordered By: Inocencio Frye on 08-30-2024 Immature granulocytes/100 WBC (Bld) 0.000 % 0.0-0.9 [facility] Comment on above: IG% - Immature Granu locytes (promyelocytes, myelocytes and metamyelocytes) > 1% indicates that a LEFT SHIFT is Present. Iron measurement (mass/mass) Ordered By: Joselito Maldonado on 08-30-2024 Iron (Unsp spec) [Mass/Mass] 10 ug/dL Low 50-170 [facility] Iron measurement (mass/mass) Ordered By: Inocencio Frye on 08-30-2024 Iron (Unsp spec) [Mass/Mass] 9 ug/dL Low 50-170 [facility] Iron+Iron Binding Capacityon 08-30-2024 TIBC 476 ug/dL High 250-450 [facility] Comment on above: Performed By: #### L 500.4050, L503.6030, L503.6550, L100.0100, L506.1001 #### [facility] [address] [place], [address] Laboratory - Chemistry and C hemistry - challengeOrdered By: Inocencio Frye on 08-30-2024 AST [Catalytic activity/Vol] 13 U/L <32 [facility] MCV (mean corpuscular volume ) determinationOrdered By: Joselito Maldonado on 08-30-2024 MCV (RBC) [Entitic vol] 67.0 fL Low 81-99 [facility] MCV (mean corpuscular volume ) determinationOrdered By: Inocencio Frye on 08-30-2024 MCV (RBC) [Entitic vol] 66.7 fL Low 81-99 [facility] Magnesiumon 08-30-2024 Magnesium [Mass/Vol] 2.2 mg/dL Normal 1.5-2.2 [facility] Comment on above: Performed By: #### L 500.2500, L100.0100 #### [facility] [address] [place] [address], [address] Magnesium measurement (mass/ volume)Ordered By: Johnny Zamora on 08-30-2024 Magnesium (Unsp spec) [Mass/Vol] 2.2 mg/dL 1.5-2.2 [facility] Mean corpuscular hemoglobin (MCH) determinationOrdered By: Joselito Maldonado on 08-30-2024 MCH (RBC) [Entitic mass] 17.1 pg Low 27.0-32.0 [facility] Mean corpuscular hemoglobin (MCH) determinationOrdered By: Inocencio Frye on 08-30-2024 MCH (RBC) [Entitic mass] 17.1 pg Low 27.0-32.0 [facility] Mean corpuscular hemoglobin concentration (MCHC) determinationOrdered By: Joselito Maldonado on 08-30-2024 MCHC (RBC) [Mass/Vol] 25.5 g/dL Low 32-36 [facility] Mean corpuscular hemoglobin concentration (MCHC) determinationOrdered By: Inocencio Frye on 08-30-2024 MCHC (RBC) [Mass/Vol] 25.7 g/dL Low 32-36 [facility] Mean platelet volume determi nationOrdered By: Joselito Maldonado on 08-30-2024 Mean platelet volume determination TNP [facility] Comment on above: Test not performed Monocyte percentageOrdered B y: Joselito Maldonado on 08-30-2024 Monocytes/100 WBC (Bld) 12.7 % High 0-10 [facility] Monocyte percentageOrdered B y: Inocencio Frye on 08-30-2024 Monocytes/100 WBC (Bld) 17.1 % High 0-10 [facility] Neutrophil percentageOrdered By: Joselito Maldonado on 08-30-2024 Neutrophils/100 WBC (Bld) 61.1 % 47-70 [facility] Neutrophil percentageOrdered By: Inocencio Frye on 08-30-2024 Neutrophils/100 WBC (Bld) 49.2 % 47-70 [facility] No Panel InformationOrdered By: Joselito Maldonado on 08-30-2024 Unsaturated Iron Binding Capacity 504 ug/dL High 228-428 [facility] No Panel InformationOrdered By: Inocencio Frye on 08-30-2024 Unsaturated Iron Binding Capacity 467 ug/dL High 228-428 [facility] Nucleated red blood cell per centageOrdered By: Joselito Maldonado on 08-30-2024 Nucleated RBC/100 WBC (Bld) [Ratio] 0 % 0-5 [facility] Nucleated red blood cell per centageOrdered By: Inocencio Frye on 08-30-2024 Nucleated RBC/100 WBC (Bld) [Ratio] 0 % 0-5 [facility] Platelet countOrdered By: Rush Maldonado on 08-30-2024 Platelets (Bld) [#/Vol] 204 10*3/uL 150-450 [facility] Platelet countOrdered By: Chacha Frye on 08-30-2024 Platelets (Bld) [#/Vol] 189 10*3/uL 150-450 [facility] Potassium measurement (mass/ volume)Ordered By: Joselito Maldonado on 08-30-2024 Potassium (Unsp spec) [Mass/Vol] 3.8 mmol/L 3.3-5.1 [facility] Comment on above: Hemolysis present, R esults could be affected. Potassium measurement (mass/ volume)Ordered By: Inocencio Frye on 08-30-2024 Potassium (Unsp spec) [Mass/Vol] 3.8 mmol/L 3.3-5.1 [facility] RBC Auto (Bld) [#/Vol]Ordere d By: Joselito Maldonado on 08-30-2024 RBC (Bld) [#/Vol] 3.45 10*6/uL Low 4.2-5.4 [facility] RBC Auto (Bld) [#/Vol]Ordere d By: Inocencio Frye on 08-30-2024 RBC (Bld) [#/Vol] 3.21 10*6/uL Low 4.2-5.4 [facility] Serum creatinine measurement (mass/volume)Ordered By: Joseltio Maldonado on 08-30-2024 Creatinine [Mass/Vol] 0.66 mg/dL Low 0.70-1.20 [facility] Serum creatinine measurement (mass/volume)Ordered By: Inocencio Frye on 08-30-2024 Creatinine [Mass/Vol] 0.63 mg/dL Low 0.70-1.20 [facility] Serum globulin measurementOr dered By: Inocencio Frye on 08-30-2024 Globulin (S) [Mass/Vol] 2.6 g/dL 2.2-4.2 [facility] Serum glucose measurement (m ass/volume)Ordered By: Joselito Maldonado on 08-30-2024 Glucose [Mass/Vol] 97 mg/dL 70-[address] [facility] Serum glucose measurement (m ass/volume)Ordered By: Inocencio Frye on 08-30-2024 Glucose [Mass/Vol] 94 mg/dL 70-[address] [facility] Serum or plasma alanine fontaine otransferase (ALT) measurementOrdered By: Inocencio Frye on 08-30-2024 ALT [Catalytic activity/Vol] 7 U/L <35 [facility] Serum or plasma albumin mao urement (mass/volume)Ordered By: Inocencio Frye on 08-30-2024 Albumin [Mass/Vol] 4.5 g/dL 3.5-5.[address] [facility] Serum or plasma albumin/glob ulin mass ratioOrdered By: Inocencio Frye on 08-30-2024 Albumin/Globulin [Mass ratio] 1.8 {ratio} 0.9-2.4 [facility] Serum or plasma alkaline natalie sphatase measurementOrdered By: Inocencio Frye on 08-30-2024 ALP [Catalytic activity/Vol] 44 U/L 35-104 [facility] Serum or plasma calcium mao urement (mass/volume)Ordered By: Joselito Le on 08-30-2024 Calcium [Mass/Vol] 9.2 mg/dL 7.6-11.[address] [facility] Serum or plasma calcium mao urement (mass/volume)Ordered By: Inocencio Frye on 08-30-2024 Calcium [Mass/Vol] 9.0 mg/dL 7.6-11.[address] [facility] Serum or plasma ferritin marti surement (mass/volume)Ordered By: Inocencio Frye on 08-30-2024 Ferritin [Mass/Vol] 4 ng/mL Low 22-378 [facility] Serum or plasma iron saturat ion measurement (mass fraction)Ordered By: Joselito Maldonado on 08-30-2024 Iron saturation [Mass fraction] 1.9 % Low 13-59 [facility] Comment on above: Previous reported re sult: 2.0 %Edited by: CHARLES on 08/31/24:190 AMENDED REPORT 08/31/241902 IRON SATURATION previously reported as: 2.0 L % Serum or plasma iron saturat ion measurement (mass fraction)Ordered By: Inocencio Frye on 08-30-2024 Iron saturation [Mass fraction] 1.9 % Low 13-59 [facility] Comment on above: Previous reported re sult: 2.0 %Edited by: WHITLEY on 08/30/24:1349 AMENDED REPORT 08/30/24 1349 IRON SATURATION previously reported as: 2.0 L % Serum or plasma urea nitroge n measurement (mass/volume)Ordered By: Joselito Maldonado on 08-30-2024 Urea nitrogen [Mass/Vol] 8 mg/dL 4-19 [facility] Serum or plasma urea nitroge n measurement (mass/volume)Ordered By: Inocencio Frye on 08-30-2024 Urea nitrogen [Mass/Vol] 8 mg/dL 4-19 [facility] Sodium levelOrdered By: Viral Maldonado on 08-30-2024 Sodium [Moles/Vol] 139 mmol/L 133-[address] [facility] Sodium levelOrdered By: Inocencio Frye on 08-30-2024 Sodium [Moles/Vol] 138 mmol/L 133-[address] [facility] Stool Occult Blood iFOBon STOB Negative Normal [facility] Comment on above: Performed By: #### L 500.2500, L100.0100 #### [facility] [address] [place], [place], [id number] Stool gastrointestinal hemog lobin detection by immunologic methodOrdered By: Joselito Maldonado on 08-30-2024 Lower GI hemoglobin IA Ql (Stl) [facility] Total proteinOrdered By: Zackary Frye on 08-30-2024 Protein [Mass/Vol] 7.0 g/dL 5.9-8.[address] [facility] Type AND Screenon 08-30-2024 Ab SCREEN GEL Negative Normal [facility] Comment on above: Order Comment: A Performed By: #### L 500.4050, L503.6030, L503.6550, L100.0100, L506.1001 #### [facility] [address] [place], [place], [address] Vitamin D,25 Hydroxyon 08-30 Vitamin D 25-OH 52.1 ng/mL Normal 30-100 [facility] Comment on above: Result Comment: Lori min D Status Deficiency: <20 ng/mL (50nmol/L) Insufficiency: 20-30 ng/mL (50-75 nmol/L) Sufficiency: 30-100 ng/mL (75-250 nmol/L) Toxicity: >100 ng/mL (>250 nmol/L) Performed By: #### L 500.4050, L503.6030, L503.6550, L100.0100, L506.1001 #### [facility] [address] [place], [place], [id number] White blood cell (WBC) count Ordered By: Joselito Maldonado on 08-30-2024 WBC (Bld) [#/Vol] 5.0 10*3/uL 4.4-11.[address] [facility] White blood cell (WBC) count Ordered By: Inocencio Frye on 08-30-2024 WBC (Bld) [#/Vol] 3.2 10*3/uL Low 4.4-11.[address] [facility] Anion gap in Serum or Plasma Ordered By: Inocencio Frye on 04-28-2024 Anion gap [Moles/Vol] 14 mmol/L 5-15 [facility] BUN/creatinine ratioOrdered By: Inocencio Frye on 04-28-2024 Urea nitrogen/Creatinine [Mass ratio] 12.2 mg/mg 10-20 [facility] Bilirubin, totalOrdered By: Inocencio Frye on 04-28-2024 Bilirubin [Mass/Vol] 0.57 mg/dL 0.00-1.30 [facility] Carbon dioxide, total [Moles /volume] in Central venous bloodOrdered By: Inocencio Frye on 04-28-2024 CO2 [Moles/Vol] 20.3 mmol/L Low 21.0-32.0 [facility] Chloride assayOrdered By: Chacha Frye on 04-28-2024 Chloride [Moles/Vol] 102 mmol/L 98-108 [facility] Comprehensive Metabolic Prof ilon 04-28-2024 Albumin [Mass/Vol] 4.3 g/dL Normal 3.5-5.[address] [facility] Comment on above: Order Comment: Order Date: 04/28/24Order Info: [id number] - CMP Performed By: #### L 500.4050, L503.6030, L503.6550, L100.0100, L506.1001 #### [facility] [address] [place], [place], [address] Albumin/Globulin [Mass ratio] 1.4 {ratio} Normal 0.9-2.4 [facility] Comment on above: Order Comment: Order Date: 04/28/24Order Info: [id number] - CMP Performed By: #### L 500.4050, L503.6030, L503.6550, L100.0100, L506.1001 #### [facility] [address] [place], [address] ALK PHOS 52 U/L Normal 35-104 [facility] Comment on above: Order Comment: Order Date: 04/28/24Order Info: [id number] - CMP Performed By: #### L 500.4050, L503.6030, L503.6550, L100.0100, L506.1001 #### [facility] [facility] [address] [place], [address] ALT [Catalytic activity/Vol] 8 U/L Normal <=34 [facility] Comment on above: Order Comment: Order Date: 04/28/24Order Info: 0786-1 - CMP Performed By: #### L 500.4050, L503.6030, L503.6550, L100.0100, L506.1001 #### [facility] [address] [place], [address] AST [Catalytic activity/Vol] 15 U/L Normal <=31 [facility] Comment on above: Order Comment: Order Date: 04/28/24Order Info: 0786-1 - CMP Performed By: #### L 500.4050, L503.6030, L503.6550, L100.0100, L506.1001 #### [facility] [address] [place], [address] Bilirubin [Mass/Vol] 0.57 mg/dL Normal 0.00-1.30 [facility] Comment on above: Order Comment: Order Date: 04/28/24Order Info: 0786-1 - CMP Performed By: #### L 500.4050, L503.6030, L503.6550, L100.0100, L506.1001 #### [facility] [address] [place], [address] BUN/CRE 12.2 RATIO Normal 10-20 [facility] Comment on above: Order Comment: Order Date: 04/28/24Order Info: 0786-1 - CMP Performed By: #### L 500.4050, L503.6030, L503.6550, L100.0100, L506.1001 #### [facility] [address] [place], [address] Calcium [Mass/Vol] 9.1 mg/dL Normal 7.6-11.[address] [facility] Comment on above: Order Comment: Order Date: 04/28/24Order Info: 0786-1 - CMP Performed By: #### L 500.4050, L503.6030, L503.6550, L100.0100, L506.1001 #### [facility] [address] [place], [address] Chloride [Moles/Vol] 102 mmol/L Normal 98-108 [facility] Comment on above: Order Comment: Order Date: 04/28/24Order Info: 0786-1 - CMP Performed By: #### L 500.4050, L503.6030, L503.6550, L100.0100, L506.1001 #### [facility] [address] [place], [address] CO2 [Moles/Vol] 20.3 mmol/L Low 21.0-32.0 [facility] Comment on above: Order Comment: Order Date: 04/28/24Order Info: 0786-1 - CMP Performed By: #### L 500.4050, L503.6030, L503.6550, L100.0100, L506.1001 #### [facility] [address] [place], [address] Creatinine [Mass/Vol] 0.72 mg/dL Normal 0.70-1.20 [facility] Comment on above: Order Comment: Order Date: 04/28/24Order Info: 0786-1 - CMP Performed By: #### L 500.4050, L503.6030, L503.6550, L100.0100, L506.1001 #### [facility] [address] [place], [address] GAP 14 Normal 5-15 [facility] Comment on above: Order Comment: Order Date: 04/28/24Order Info: 0786-1 - CMP Performed By: #### L 500.4050, L503.6030, L503.6550, L100.0100, L506.1001 #### [facility] [address] [place], [address] GFR/1.73 sq M.predicted among non-blacks MDRD (S/P/Bld) [Vol rate/Area] 105 mL/min/{1.73_m2} Normal >60 [facility] Comment on above: Order Comment: Order Date: 04/28/24Order Info: 0786-1 - CMP Result Comment: mL/m in/1.73m2 CKD-EPI Creatinine Equation (2020) Performed By: #### L 500.4050, L503.6030, L503.6550, L100.0100, L506.1001 #### [facility] [address] [place], [address] Globulin (S) [Mass/Vol] 3.0 g/dL Normal 2.2-4.2 [facility] Comment on above: Order Comment: Order Date: 04/28/24Order Info: 0786-1 - CMP Performed By: #### L 500.4050, L503.6030, L503.6550, L100.0100, L506.1001 #### [facility] [address] [place], [address] Glucose [Mass/Vol] 87 mg/dL Normal 70-[address] [facility] Comment on above: Order Comment: Order Date: 04/28/24Order Info: 0786-1 - CMP Performed By: #### L 500.4050, L503.6030, L503.6550, L100.0100, L506.1001 #### [facility] [address] [place], [address] Potassium [Moles/Vol] 4.0 mmol/L Normal 3.3-5.1 [facility] Comment on above: Order Comment: Order Date: 04/28/24Order Info: 0786-1 - CMP Performed By: #### L 500.4050, L503.6030, L503.6550, L100.0100, L506.1001 #### [facility] [address] [place], [address] Sodium [Moles/Vol] 136 mmol/L Normal 133-[address] [facility] Comment on above: Order Comment: Order Date: 04/28/24Order Info: 0786-1 - CMP Performed By: #### L 500.4050, L503.6030, L503.6550, L100.0100, L506.1001 #### [facility] [address] [place], [address] T PROT 7.3 g/dL Normal 5.9-8.4 [facility] Comment on above: Order Comment: Order Date: 04/28/24Order Info: 0786-1 - CMP Performed By: #### L 500.4050, L503.6030, L503.6550, L100.0100, L506.1001 #### [facility] [address] [place], [address] Urea nitrogen [Mass/Vol] 9 mg/dL Normal 4-19 [facility] Comment on above: Order Comment: Order Date: 04/28/24Order Info: 0786-1 - CMP Performed By: #### L 500.4050, L503.6030, L503.6550, L100.0100, L506.1001 #### [facility] [address] [place], [address] GFR/1.73 sq M.predicted daniel g non-blacks MDRD (S/P/Bld) [Vol rate/Area]Ordered By: Inocencio Frye on 04-28-2024 Estimated GFR (MDRD) Non-Af Amer [address] [facility] Comment on above: mL/min/1.73m2 CKD-EP I Creatinine Equation (2020) L506.1001on 04-28-2024 Vitamin D 25-OH 34.2 ng/mL Normal 30-100 [facility] Comment on above: Order Comment: Order Date: 04/28/24Order Info: 0786-1 - CMP Result Comment: Lori min D Status Deficiency: <20 ng/mL (50nmol/L) Insufficiency: 20-30 ng/mL (50-75 nmol/L) Sufficiency: 30-100 ng/mL (75-250 nmol/L) Toxicity: >100 ng/mL (>250 nmol/L) Performed By: #### L 500.2500, L100.0100 #### [facility] [address] [place], [address] Laboratory - Chemistry and C hemistry - challengeOrdered By: Inocencio Frye on 04-28-2024 AST [Catalytic activity/Vol] 15 U/L <32 [facility] Potassium (Unsp spec) [Mass/ Vol]Ordered By: Inocencio Frye on 04-28-2024 Potassium [Moles/Vol] 4.0 mmol/L 3.3-5.1 [facility] Serum creatinine measurement (mass/volume)Ordered By: Inocencio Frye on 04-28-2024 Creatinine [Mass/Vol] 0.72 mg/dL 0.70-1.20 [facility] Serum globulin measurementOr dered By: Inocencio Frye on 04-28-2024 Globulin (S) [Mass/Vol] 3.0 g/dL 2.2-4.2 [facility] Serum glucose measurement (m ass/volume)Ordered By: Inocencio Frye on 04-28-2024 Glucose [Mass/Vol] 87 mg/dL 70-[address] [facility] Serum or plasma alanine fontaine otransferase (ALT) measurementOrdered By: Inocencio Frye on 04-28-2024 ALT [Catalytic activity/Vol] 8 U/L <35 [facility] Serum or plasma albumin mao urement (mass/volume)Ordered By: Inocencio Frye on 04-28-2024 Albumin [Mass/Vol] 4.3 g/dL 3.5-5.[address] [facility] Serum or plasma albumin/glob ulin mass ratioOrdered By: Inocencio Frye on 04-28-2024 Albumin/Globulin [Mass ratio] 1.4 {ratio} 0.9-2.4 [facility] Serum or plasma alkaline natalie sphatase measurementOrdered By: Inocencio Frye on 04-28-2024 ALP [Catalytic activity/Vol] 52 U/L 35-104 [facility] Serum or plasma calcium mao urement (mass/volume)Ordered By: Inocencio Frye on 04-28-2024 Calcium [Mass/Vol] 9.1 mg/dL 7.6-11.[address] [facility] Serum or plasma urea nitroge n measurement (mass/volume)Ordered By: Inocencio Frye on 04-28-2024 Urea nitrogen [Mass/Vol] 9 mg/dL 4-19 [facility] Sodium levelOrdered By: Inocencio Frye on 04-28-2024 Sodium [Moles/Vol] 136 mmol/L 133-[address] [facility] Total proteinOrdered By: Zackary Frye on 04-28-2024 Protein [Mass/Vol] 7.3 g/dL 5.9-8.[address] [facility] Vitamin D, 25-hydroxyOrdered By: Inocencio Frye on 04-28-2024 Vitamin D 25-Hydroxy 34.2 ng/mL 30-100 [facility] Comment on above: Vitamin D StatusDefi ciency: <20 ng/mL (50nmol/L)Insufficiency: 20-30 ng/mL (50-75 nmol/L)Sufficiency: 30-100 ng/mL (75-250 nmol/L)Toxicity: >100 ng/mL (>250 nmol/L) SCREENING MAMM (CAD), BILATo n 01-19-2024 SCREENING MAMM (CAD), BILAT [facility] Imaging Services [address] [place] [address] SCREENING MAMM (CAD), BILAT MR#: [id number] Acct: [id number] Name: GALINDO JOHNSTON Rep #: [id number] : 1980 F 43 From: Joaquin Miller MD PCP: Dr. Inocencio Frye MD Status: REG CLI Study: SCREENING MAMM (CAD), BILAT Date of Exam: 12/25 08/16 Exam# [id number] Ordering Dr: [place] [id number] MAMMOGRAPHY - BILATERAL SCREENING 3-D TOMOSYNTHESIS REASON [...] CC: RUTH Olmos; Dr. Inocencio Frye MD Manager Publishing: Signed Normal [facility] Basophil percentageOrdered B y: Inocencio Frye on 06-04-2023 Bilirubin [Mass/Vol] 0.50 mg/dL 0.20-1.00 [facility] Comment on above: For patients on eltr ombopag therapy, use of Dimension [place]ighton TBIL is not recommended. Chloride [Moles/Vol] 106 mmol/L 98-107 [facility] Glucose [Mass/Vol] 89 mg/dL 74-[address] [facility] Potassium [Moles/Vol] 3.8 mmol/L 3.5-5.1 [facility] Protein [Mass/Vol] 7.3 g/dL 6.4-8.[address] [facility] Sodium [Moles/Vol] 137 mmol/L 136-[address] [facility] Laboratory - Chemistry and C hemistry - challengeOrdered By: Inocencio rFye on 06-04-2023 Albumin/Globulin [Mass ratio] 1.1 {ratio} 0.9-2.4 [facility] ALP [Catalytic activity/Vol] 50 U/L 45-117 [facility] ALT [Catalytic activity/Vol] 14 U/L 13-56 [facility] CO2 [Moles/Vol] 26.0 mmol/L 21.0-32.0 [facility] Globulin (S) [Mass/Vol] 3.5 g/dL 2.2-4.2 [facility] Urea nitrogen/Creatinine [Mass ratio] 15.5 mg/mg 10-20 [facility] No Panel InformationOrdered By: Inocencio Frye on 06-04-2023 Estimated GFR (MDRD) Amer 104 mL/min >60 [facility] Comment on above: GFR Calc Estimated GFR (MDRD) Non-Af Amer 86 mL/min >60 [facility] Comment on above: Non- GFR Calc Vitamin D 25-Hydroxy 39.6 ng/mL [facility] Comment on above: Vitamin D 25(OH) Sta tus Range Deficiency <20 ng/mL (50nmol/L) Insufficiency 20 - 30 ng/mL (50 - 75 nmol/L) Sufficiency 30 - 100 ng/mL (75 - 250 nmol/L) Toxicity >100 ng/mL (>250 nmol/L) Serum or plasma calcium mao urement (mass/volume)Ordered By: Inocencio Frye on 06-04-2023 Calcium [Mass/Vol] 8.7 mg/dL 8.5-10.[address] [facility] Serum or plasma creatinine m easurement (mass/volume)Ordered By: Inocencio Frye on 06-04-2023 Creatinine [Mass/Vol] 0.78 mg/dL 0.55-1.02 [facility] Comment on above: The validity of the calculated GFR & GFRAA in patients over 70 years has not been determined. Clinical correlation is essential. Serum or plasma urea nitroge n measurement (mass/volume)Ordered By: Inocencio Frye on 06-04-2023 Urea nitrogen [Mass/Vol] 12 mg/dL 7-18 [facility] Thin prep Papanicolaou smear with manual screeningOrdered By: Inocencio Frye on 06-04-2023 Thin prep Papanicolaou smear with manual screening 3.8 g/dL 3.2-5.0 [facility] Thin prep Papanicolaou smear with manual screening 10 U/L 15-37 [facility] Thin prep Papanicolaou smear with manual screening 5 5-15 [facility] Basophil percentageOrdered B y: Josette Elizabeth on 12-03-2022 Cholesterol [Mass/Vol] 131 mg/dL <200 [facility] Comment on above: <200 mg/dL Desirable 200-240 mg/dL Borderline >240 mg/dL High Risk Triglyceride [Mass/Vol] 105 mg/dL <199 [facility] Comment on above: The drugs N-Acetylcy steine and Metamizole may falsely depress this assay.Serum Triglycerides Reference Interval Normal <150 mg/dL Borderline high 150 - 199 mg/dL High 200 - 499 mg/dL Very High > or = 500 mg/dL Serum or plasma cholesterol in HDL measurement (mass/volume)Ordered By: Josette Elizabeth on 12-03-2022 Cholesterol in HDL [Mass/Vol] 46 mg/dL >40 [facility] Comment on above: The drugs N-Acetylcy steine and Metamizole may falsely depress this assay. Reference Range HDL <40 mg/dL Low HDL Cholesterol HDL >or= 60 mg/dL High HDL Cholesterol Serum or plasma cholesterol in VLDL measurement (mass/volume)Ordered By: Josette Elizabeth on 12-03-2022 Cholesterol in VLDL [Mass/Vol] 21 mg/dL 5-40 [facility] Serum or plasma low density lipoprotein (LDL) cholesterol measurement (mass/volume)Ordered By: Josette Elizabeth on 12-03-2022 Cholesterol in LDL [Mass/Vol] 64 mg/dL 0-130 [facility] Basophil percentageOrdered B y: Dr. Frye on 05-27-2022 Bilirubin [Mass/Vol] 0.30 mg/dL 0.20-1.00 [facility] Comment on above: For patients on eltr ombopag therapy, use of Dimension [place] TBIL is not recommended. Chloride [Moles/Vol] 106 mmol/L 98-107 [facility] Glucose [Mass/Vol] 92 mg/dL 74-[address] [facility] Potassium [Moles/Vol] 3.8 mmol/L 3.5-5.1 [facility] Protein [Mass/Vol] 7.6 g/dL 6.4-8.[address] [facility] Sodium [Moles/Vol] 138 mmol/L 136-[address] [facility] Laboratory - Chemistry and C hemistry - challengeOrdered By: Dr. Frye on 05-27-2022 ALP [Catalytic activity/Vol] 48 U/L 45-117 [facility] ALT [Catalytic activity/Vol] 17 U/L 13-56 [facility] CO2 [Moles/Vol] 26.0 mmol/L 21.0-32.0 [facility] Globulin (S) [Mass/Vol] 3.7 g/dL 2.2-4.2 [facility] Urea nitrogen/Creatinine [Mass ratio] 17.8 mg/mg 10-20 [facility] No Panel InformationOrdered By: Dr. Frye on 05-27-2022 Estimated GFR (MDRD) Amer 111 mL/min >60 [facility] Comment on above: GFR Calc Estimated GFR (MDRD) Non-Af Amer 92 mL/min >60 [facility] Comment on above: Non- GFR Calc Vitamin D 25-Hydroxy 66.2 ng/mL [facility] Comment on above: Vitamin D 25(OH) Sta tus Range Deficiency <20 ng/mL (50nmol/L) Insufficiency 20 - 30 ng/mL (50 - 75 nmol/L) Sufficiency 30 - 100 ng/mL (75 - 250 nmol/L) Toxicity >100 ng/mL (>250 nmol/L) Serum or plasma albumin mao urement (mass/volume)Ordered By: Dr. Frye on 05-27-2022 Albumin [Mass/Vol] 3.9 g/dL 3.2-5.[address] [facility] Serum or plasma albumin/glob ulin mass ratioOrdered By: Dr. Frye on 05-27-2022 Albumin/Globulin [Mass ratio] 1.1 {ratio} 0.9-2.4 [facility] Serum or plasma calcium mao urement (mass/volume)Ordered By: Dr. Frye on 05-27-2022 Calcium [Mass/Vol] 8.9 mg/dL 8.5-10.[address] [facility] Serum or plasma creatinine m easurement (mass/volume)Ordered By: Dr. Frye on 05-27-2022 Creatinine [Mass/Vol] 0.73 mg/dL 0.55-1.02 [facility] Comment on above: The validity of the calculated GFR & GFRAA in patients over 70 years has not been determined. Clinical correlation is essential. Serum or plasma urea nitroge n measurement (mass/volume)Ordered By: Dr. Frye on 05-27-2022 Urea nitrogen [Mass/Vol] 13 mg/dL 7-18 [facility] Thin prep Papanicolaou smear with manual screeningOrdered By: Dr. Frye on 05-27-2022 Thin prep Papanicolaou smear with manual screening 13 U/L 15-37 [facility] Thin prep Papanicolaou smear with manual screening 6 5-15 [facility] Basophil percentageon 2021 Bilirubin [Mass/Vol] 0.80 mg/dL 0.20-1.00 [facility] Work Phone: Comment on above: For patients on eltr ombopag therapy, use of Dimension [place] TBIL is not recommended. Chloride [Moles/Vol] 104 mmol/L 98-107 [facility] Work Phone: Glucose [Mass/Vol] 90 mg/dL 74-106 [facility] Work Phone: Potassium [Moles/Vol] 3.7 mmol/L 3.5-5.1 [facility] Work Phone: Protein [Mass/Vol] 7.9 g/dL 6.4-8.2 [facility] Work Phone: Sodium [Moles/Vol] 135 mmol/L 136-[address] [facility] Work Phone: Laboratory - Chemistry and C hemistry - challengeon 05-14-2021 ALP [Catalytic activity/Vol] 49 U/L 45-117 [facility] Work Phone: ALT [Catalytic activity/Vol] 20 U/L 13-56 [facility] Work Phone: CO2 [Moles/Vol] 25.0 mmol/L 21.0-32.0 [facility] Work Phone: Globulin (S) [Mass/Vol] 3.7 g/dL 2.2-4.2 [facility] Work Phone: Urea nitrogen/Creatinine [Mass ratio] 19.4 mg/mg 10-20 [facility] Work Phone: No Panel Informationon 05-14 Estimated GFR (MDRD) Amer 114 mL/min >60 [facility] Work Phone: Comment on above: GFR Calc Estimated GFR (MDRD) Non-Af Amer 94 mL/min >60 [facility] Work Phone: Comment on above: Non- GFR Calc Thyroid Stimulating Hormone (TSH) 2.01 uIU/mL 0.358-3.74 [facility] Work Phone: Vitamin D 25-Hydroxy 67.6 ng/mL [facility] Work Phone: Comment on above: Vitamin D 25(OH) Sta tus Range Deficiency <20 ng/mL (50nmol/L) Insufficiency 20 - 30 ng/mL (50 - 75 nmol/L) Sufficiency 30 - 100 ng/mL (75 - 250 nmol/L) Toxicity >100 ng/mL (>250 nmol/L) Serum or plasma albumin mao urement (mass/volume)on 05-14-2021 Albumin [Mass/Vol] 4.2 g/dL 3.2-5.[address] [facility] Work Phone: Serum or plasma albumin/glob ulin mass ratioon 05-14-2021 Albumin/Globulin [Mass ratio] 1.1 {ratio} 0.9-2.4 [facility] Work Phone: Serum or plasma calcium mao urement (mass/volume)on 05-14-2021 Calcium [Mass/Vol] 8.8 mg/dL 8.5-10.[address] [facility] Work Phone: Serum or plasma creatinine m easurement (mass/volume)on 05-14-2021 Creatinine [Mass/Vol] 0.72 mg/dL 0.55-1.02 [facility] Work Phone: Comment on above: The validity of the calculated GFR & GFRAA in patients over 70 years has not been determined. Clinical correlation is essential. Serum or plasma urea nitroge n measurement (mass/volume)on 05-14-2021 Urea nitrogen [Mass/Vol] 14 mg/dL 7-18 [facility] Work Phone: Thin prep Papanicolaou smear with manual screeningon 05-14-2021 Thin prep Papanicolaou smear with manual screening 14 U/L 15-37 [facility] Work Phone: Thin prep Papanicolaou smear with manual screening 6 5-15 [facility] Work Phone: Vital Signs Date Time Vital Sign Value Performing Clinician Luis durham 10-21-2024 10:06-0400 Body height 162.[address] Inocencio Frye MD Work Phone: [facility] 10-21-2024 10:06-0400 Body mass index (BMI) [Ratio] 24.4 kg/m2 Dr. Inocencio Frye MD Work Phone: [facility] 10-21-2024 10:06-0400 Body weight 64.[address] Inocencio Frye MD Work Phone: [facility] 10-21-2024 10:06-0400 Diastolic blood pressure 79 mm[Hg] Dr. Inocencio Frye MD Work Phone: 6(891)296-791061 [place] [address] 10-21-2024 10:06-0400 Systolic blood pressure 138 mm[Hg] Dr. Inocencio Frye MD Work Phone: 7(204)776-070461 [place] [address] 09-09-2024 13:21-0400 Body height 162.[address] Inocencio Frye MD Work Phone: 7(240)450-139045 [address] 09-09-2024 13:21-0400 Body mass index (BMI) [Ratio] 24.2 kg/m2 Dr. Inocencio Frye MD Work Phone: 8(226)944-789461 [place] [address] 09-09-2024 13:21-0400 Body weight 63.[address] Inocencio Frye MD Work Phone: 1(480)419-117561 [place] [address] 09-09-2024 13:21-0400 Diastolic blood pressure 67 mm[Hg] Dr. Inocencio Frye MD Work Phone: 0(183)411-780761 [place] [address] 09-09-2024 13:21-0400 Systolic blood pressure 128 mm[Hg] Dr. Inocencio Frye MD Work Phone: 3(215)211-074661 [place] [address] 08-31-2024 14:02-0400 Body temperature 98.4 [degF] Dr. Inocencio Frye MD Work Phone: [facility] 08-31-2024 14:02-0400 Diastolic blood pressure 70 mm[Hg] Dr. Inocencio Frye MD Work Phone: 5(551)609-747061 [place] [address] 08-31-2024 14:02-0400 Heart rate 93 /min Dr. Inocencio Frye MD Work Phone: 3(215)684-312261 [place] [address] 08-31-2024 14:02-0400 Respiratory rate 16 /min Dr. Inocencio Frye MD Work Phone: [facility] 08-31-2024 14:02-0400 SaO2% (BldA) [Mass fraction] 97 % Dr. Inocencio Frye MD Work Phone: 2(182)922-639099 [place] [address] 08-31-2024 14:02-0400 Systolic blood pressure 134 mm[Hg] Dr. Inocencio Frye MD Work Phone: 7(631)987-670099 [place] [address] 08-31-2024 10:28-0400 SaO2% (BldA) [Mass fraction] 98 % Dr. Inocencio Frye MD Work Phone: 4(865)785-673799 [place] [address] 08-31-2024 10:00-0400 Body temperature 98.8 [degF] Dr. Inocencio Frye MD Work Phone: 3(594)359-327199 [place] [address] 08-31-2024 10:00-0400 Diastolic blood pressure 61 mm[Hg] Dr. Inocencio Frye MD Work Phone: 6(402)091-605099 [place] [address] 08-31-2024 10:00-0400 Heart rate 91 /min Dr. Inocencio Frye MD Work Phone: 6(034)329-268899 [place] [address] 08-31-2024 10:00-0400 Systolic blood pressure 113 mm[Hg] Dr. Inocencio Frye MD Work Phone: 1(610)030-564699 [place] [address] 08-31-2024 03:14-0400 Body mass index (BMI) [Ratio] 25 kg/m2 Dr. Inocencio Frye MD Work Phone: 3(097)202-365899 [place] [address] 08-31-2024 03:14-0400 Body weight [address] Inocencio Frye MD Work Phone: 4(236)902-211199 [place] [address] 08-30-2024 20:12-0400 Body height 162.[address] Inocencio Frye MD Work Phone: 5(872)273-575799 [place] [address] 08-30-2024 19:47-0400 Body temperature 98.2 [degF] Dr. Inocencio Frye MD Work Phone: 5(655)355-746799 [place] [address] 08-30-2024 19:47-0400 Diastolic blood pressure 76 mm[Hg] Dr. Inocencio Frye MD Work Phone: [facility] 08-30-2024 19:47-0400 Heart rate 71 /min Dr. Inocencio Frye MD Work Phone: [facility] 08-30-2024 19:47-0400 Respiratory rate 17 /min Dr. Inocencio Frye MD Work Phone: [facility] 08-30-2024 19:47-0400 SaO2% (BldA) [Mass fraction] 99 % Dr. Inocencio Frye MD Work Phone: [facility] 08-30-2024 19:47-0400 Systolic blood pressure 125 mm[Hg] Dr. Inocencio Frye MD Work Phone: [facility] 08-30-2024 14:29-0400 Body height 162.[address] Inocencio Frye MD Work Phone: [facility] 08-30-2024 14:29-0400 Body mass index (BMI) [Ratio] 25 kg/m2 Dr. Inocencio Frye MD Work Phone: [facility] 08-30-2024 14:29-0400 Body weight 66.[address] Inocencio Frye MD Work Phone: [facility] Encounters Encounter Date Encounter Type Care Provider Facility Start: 11-03-2024 Encounter for other preprocedural examination [facility] [place] Start: 10-21-2024 End: 10-21-[address] Roxanna King DO [facility] Work Phone: Start: 10-21-2024 End: 10-21-[address] Inocencio Frye MD Work Phone: [facility] Start: 10-21-2024 End: 10-21-2024 ambulatory Inocencio Frye Facility:[facility] Start: 10-19-2024 Encounter for other preprocedural examination [facility] [place] Start: 10-11-2024 Non-patient / Non-visit Dr. Carmen KLEIN -[facility] Work Phone: Start: 10-11-2024 End: 10-11-[address] Inocencio Frye MD Work Phone: -Pulmonary Services/Neurology Start: 10-11-2024 End: 10-11-[address] Roxanna King DO -Pulmonary Services/Neurology Work Phone: Start: 10-11-2024 End: 10-11-2024 ambulatory Inocencio Frye Facility:[facility] Start: 09-09-2024 End: 09-09-[address] Roxanna King DO -Laboratory Specimen Work Phone: Start: 09-09-2024 End: 09-09-[address] Inocencio Frye MD Work Phone: -Laboratory Specimen Start: 09-09-2024 End: 09-09-[address] Roxanna King DO -[facility] Work Phone: Start: 09-09-2024 End: 09-09-[address] Inocencio Frye MD Work Phone: -[facility] Start: 09-06-2024 End: 09-06-[address] Inocencio Frye MD Work Phone: -Laboratory [facility] Start: 09-06-2024 End: 09-06-[address] Inocencio Frye MD -Laboratory [facility] Start: 09-06-2024 End: 09-06-2024 ambulatory Inocencio Frye Facility:[facility] Start: 08-31-2024 Non-patient / Non-visit Dr. Radha Conrad MD -[facility] Work Phone: Start: 08-31-2024 Non-patient / Non-visit Dr. Luca King DO -[facility] Start: 08-30-2024 Non-patient / Non-visit Dr. Johnny Zamora MD -[facility] Work Phone: Start: 08-30-2024 End: 08-31-2024 ambulatory Johnny Zamora Facility:[facility] Start: 08-30-2024 End: 08-31-2024 Evaluation and management of inpatient Dr. Johnny Zamora MD -Progressive Care Unit Work Phone: Start: 08-30-2024 End: 08-31-[address] Inocencio Frye MD Work Phone: -[facility] Start: 08-30-2024 End: 08-30-[address] Inocencio Frye MD Work Phone: -Laboratory [facility] Start: 08-30-2024 End: 08-30-[address] Inocencio Frye MD -Laboratory [facility] Start: 08-30-2024 End: 08-30-2024 ambulatory Inocencio Frye Facility:[facility] Start: 04-28-2024 End: 04-28-[address] Inocencio Frye MD Work Phone: [facility] Work Phone: Start: 04-28-2024 End: 04-28-[address] Inocencio Frye MD -[facility] Start: 04-28-2024 End: 04-28-2024 ambulatory Inocencio Frye Facility:[facility] Start: 01-19-2024 End: 01-19-2024 Patient encounter procedure Angelica Olmos NP-C -Outpatient Breast Imaging Work Phone: Start: 01-19-2024 End: 01-19-2024 ambulatory Angelica Olmos NP Facility:[facility] Start: 06-16-2023 End: 06-16-[address] [facility] Work Phone: Start: 06-16-2023 End: 06-16-[address] [facility]-Ultrasound, [facility] Work Phone: Start: 06-04-2023 End: 06-04-[address] [facility] Work Phone: Start: 06-04-2023 End: 06-04-2023 Patient encounter procedure [facility] Start: 12-23-2022 End: 12-23-[address] [facility] Work Phone: Start: 12-23-2022 End: 12-23-[address] [facility]-Ultrasound, [facility] Work Phone: Start: 12-03-2022 End: 12-03-[address] [facility] Work Phone: Start: 12-03-2022 End: 12-03-2022 Patient encounter procedure [facility] Start: 05-27-2022 End: 05-27-[address] [facility] Work Phone: Start: 05-27-2022 End: 05-27-2022 Patient encounter procedure [facility] Start: 12-11-2021 End: 12-11-[address] [facility] Work Phone: Start: 12-11-2021 End: 12-11-[address] [facility]-Outpatient Breast Imaging Start: 05-14-2021 End: 05-14-2021 Patient encounter procedure [facility] Procedures Date Procedure Procedure Detail Performing Clinician Start: 08-31-[address] Inocencio Frye MD Work Phone: Start: 08-31-[address] Inocencio Frye MD Work Phone: Start: 08-30-[address] Inocencio Frye MD Work Phone: Start: 08-30-2024 Total iron binding capacity measurement Dr. Inocencio Frye MD Work Phone: Start: 08-30-2024 Measurement of occul t blood in stool specimen using immunoassay Dr. Inocencio Frye MD Work Phone: Start: 08-30-2024 Total iron binding capacity measurement Dr. Inocencio Frye MD Work Phone: Start: 08-30-2024 Vitamin D, 25-hydrox y measurement Dr. Inocencio Frye MD Work Phone: Comment on above: Vitamin D StatusDefi ciency: <20 ng/mL (50nmol/L)Insufficiency: 20-30 ng/mL (50-75 nmol/L)Sufficiency: 30-100 ng/mL (75-250 nmol/L)Toxicity: >100 ng/mL (>250 nmol/L) Start: 01-19-2024 Screening mammograph y of bilateral breasts Dr. Inocencio Frye MD Work Phone: Start: 06-16-2023 US scan of thyroid Start: 12-23-2022 Screening mammography Start: 12-23-2022 US scan of thyroid Start: 12-11-2021 US scan of thyroid Start: 12-11-2021 Screening mammography Plan of Treatment Date Care Activity Detail Author Start: 11-08-2024 ambulatory Ambulatory Facility:[facility] Start: 10-21-2024 Complete blood count [facility] Start: 08-31-2024 Patient discharge [facility] Start: 08-31-2024 Referral to obstetri zain and sales assistant entertainment and media [facility] Start: 08-30-2024 End: 08-30-2024 Following clinical pathway protocol [facility] Start: 08-30-2024 Transfusion of blood product [facility] Start: 08-30-[address] [facility] Start: 08-30-2024 Assessment of risk o f venous thromboembolism [facility] Start: 08-30-[address] [facility] Start: 08-30-2024 Insertion of cathete r into peripheral vein [facility] Start: 08-30-2024 Measuring intake and output [facility] Start: 08-30-[address] [facility] Start: 08-30-2024 Providing care accor ding to standard [facility] Start: 08-30-2024 [facility] Start: 08-30-2024 End: 08-30-[address] [facility] Start: 08-30-2024 Hospital admission, emergency, from emergency room, medical nature [facility] Start: 08-30-2024 Administration of blood product [facility] Erythrocyte mean cor puscular volume determination [facility] Hematocrit [Volume F raction] of Blood [facility] Hemoglobin [Mass/vol ume] in Blood [facility] Iron [Mass/mass] in Unspecified specimen [facility] Iron saturation [Mas s Fraction] in Serum or Plasma [facility] Leukocytes [#/volume] in Blood [facility] Mean corpuscular hem oglobin concentration determination [facility] Mean corpuscular hem oglobin determination [facility] Platelets [#/volume] in Blood [facility] Red blood cell count [facility] Red cell distributio n width determination [facility] Total iron binding c apacity measurement [facility] Immunizations Immunization Date Immunization Notes Care Provider Fa milly 01-21-2019 Flucelvax Quad 2018- 2019 (PF) (flu vac qs 2018(4 yr up)CD(PF)) 60 mcg ([address] [facility] Work Phone: Payers Date Payer Category Payer Self-pay [id number] 2020 Unknown [id number] Self-pay [id number] Unknown [id number] Unknown [id number] Unknown [id number] 2.16.8 [id number] Unknown [id number] 2.16.8 [id number] Unknown [id number] 2.16.8 [id number] Unknown [id number] 2.16.8 [id number] Unknown [id number] 2.16.8 [id number] Unknown [id number] 2.16.8 40.1.214167.3.579.2.462 Unknown [id number] 2.16.8 [id number] Unknown [id number] 2.16.8 40.1.863258.3.579.2.462 Unknown [id number] 2.16.8 40.1.669498.3.579.2.462 Unknown [id number] 2.16.8 40.1.052819.3.579.2.462 Unknown [id number] 2.16.8 [id number] Unknown [id number] 2.16.8 40.1.157261.3.579.2.462 Unknown [id number] 2.16.8 40.1.462034.3.579.2.462 Unknown [id number] 2.16.8 [id number] Unknown [id number] 2.16.8 [id number] Social History Date Type Detail Facility Start: 01-21-2019 End: 01-21-2019 Tobacco smoking status NHIS Unknown if ever smoked [facility] Start: 1980 Sex Assigned At Female [facility] Start: 01-21-2019 End: 08-30-2024 Tobacco smoking status NHIS Never smoked tobacco (finding) [facility] Start: 05-10-2024 Sex Female (finding) [facility] Start: 10-25-2024 Tobacco smoking stat us MIIS Ex-smoker (finding) [facility] Goals Date Patient Goal Desired Activity /State Functional Status Date Assessment Result Facility 08-31-2024 Functional status Up ad narda [facility] Work Phone: Mental Status Date Assessment Result Facility 08-31-2024 Cognitive function Voice/Name [facility] Work Phone: 08-30-2024 Cognitive function Level Of Cons ciousness Awake;Alert;Appropriate;Follow s Commands [facility] Work Phone: Clinical Notes 08-30-2024 to 08-31-2024 Note Date & Type Note Facility 08-31-[address] [facility] 08-31-[address] [facility] 08-31-[address] [facility] 08-31-2024 Note [facility] Medical Records Department [address] [place] [address] Discharge Summary 08/31/24 1254 MR#: [id number] Acct: [id number] Name: GALINDO JOHNSTON Rep #: [id number] : 1980 44 From: Lori Conrad MD PCP: Dr. Inocencio Frye MD Status:ADM ROMINA Location: [place] [address] Providers Date of Admission: 08/30/24 Date of Discharge: 08/31/24 Primary Care Physician: Dr. Inocencio Frye MD Consultations 08/31/24 07:06 Consult: T[employer]OR [employer]IVER Routine Consulting Provider: Roxanna King Reason for Consult: Heavy cycles EMERGENT Consult: No MD Notified: Yes Date Notified: 08/31/24 Time Notified: 07:08 Method of Notification: Text Reason For Visit: SEVERE ANEMIA Diagnosis Discharge Diagnosis (1) Menorrhagia, premenopausal: Status: Acute Code(s): N92.4 - Excessive bleeding in the premenopausal period (2) Iron deficiency anemia: Status: Chronic Code(s): D50.9 - Iron deficiency anemia, unspecified (3) Acute blood loss anemia: Status: Acute Code(s): D62 - Acute posthemorrhagic anemia Plan: DISCHARGE DIAGNOSES: #1. Premenopausal menorrhagia with associated acute on suspected chronic microcytic anemia/iron deficiency anemia with acute blood loss anemia #2. Anxiety #3. Former tobacco use #4. RLS Medications at Discharge Home Medications cholecalciferol (vitamin D3) 100 mcg (4,000 unit) capsule 100 mcg PO DAILY 08/30/24 escitalopram oxalate 20 mg tablet 20 mg PO DAILY 08/30/24 ropinirole 0.5 mg tablet 1 mg PO QHS 08/30/24 ferrous gluconate 324 mg (38 mg iron) tablet 324 mg PO DAILY 30 days #30 tabs 08/31/24 medroxyprogesterone 5 mg tablet 5 mg PO DAILY 30 days #30 tabs 08/31/24 Hospital Course Operations None Procedures - (Transvaginal ultrasound.) Summary of Care Provided Minutes Spent on Discharge: 35 Hospital Course: The patient is a 44 y/o F w/ PMHx: Chronic premenopausal menorrhagia, Anxiety, Former tobacco use, RLS who presents to the [facility] ED on 08/30/2024 secondary to recently performed outpatient labs per PCP with significantly decreased hemoglobin at 5.5 despite no marked significant symptoms with recent cycle completed 1 week previous noted to be as usual extremely heavy lasting at least 7 days more heavy over the first initial 2. Given significantly decreased hemoglobin which was confirmed in ED patient was administered 2 unit PRBC. Patient was admitted to PCU, iron studies were obtained and patient was initiated on IV iron transfusions eventually transition to oral supplementation at discharge. Transvaginal ultrasound was obtained with noted significant 6.5 cm x 6.7 cm x 6.5 cm subendometrial fibroid. shoe maker was consulted and discussed case at length the patient who in the past have been resistant to hormonal therapy but at this time given severity of presentation amenable to initiation of medroxyprogesterone with planned follow-up biopsy and likely future robotic hysterectomy. Patient clinically improved quicker than expected although likely suspect this is secondary to her chronic ongoing blood loss anemia with menorrhagia. Given her clinically improved status quicker than expected and plan already in place with improved hemoglobin following transfusions patient was discharged to home in stable condition with plan continue oral iron supplementation, medroxyprogesterone 5 mg daily until cycle onset with then likely increase to 10 mg however would be arranged via Sports Athletic Trainer discussion in addition to plan follow-up which Sports Athletic Trainer office would arrange for planned biopsy and future robotic hysterectomy. DAY OF DISCHARGE PROGRESS NOTE: Subjective: Patient without acute event overnight per self and nursing report. Patient denies fever, chills, nausea, emesis, abdominal pain, chest pain or dyspnea. Patient agreeable to discharge to home following transvaginal ultrasound and plan of care with gynecology. Patient will be discharged with follow-up with primary care physician within 3-5 days in addition to plan to follow-up with gynecology more urgently in the office to assure set up of biopsy in future robotic hysterectomy with service noting that they would contact her with visit Objective: T98.8, heart rate 91, BP 113/61, respiratory rate 16, 99% on room air Physical Examination: General: awake, alert, oriented x 3 and cooperative, seated upright in the PCU bed, NAD. Skin: normal color, turgor, no icterus, cyanosis. HEENT: AT/NC, EOMI, PERRLA, MMM. Lungs: CTA bilaterally, moderate effort, mild decrease BL bases, no rales, ronchi or wheezing; Heart: Regular rate and rhythm; no gallop, rub audible. Abdomen: soft, NTTP, ND, normal BS. Extremities: no cyanosis, clubbing, or edema. Neurological: patient awake, alert, oriented x 3; cognitive function appears intact upon questioning,; pupils equally reactive to light and accomodation; cranial nerves II-XII gr (more content not included)... [facility] 08-31-2024 Radiology Diagnostic study note [facility] Imaging Services [address] [place], [place] [id number] Transvaginal Non- MR#: [id number] Acct: [id number] Name: GALINDO JOHNSTON Rep #: [id number] : 1980 F 44 From: Jose A Stanton MD PCP: Dr. Inocencio Frye MD Status: CHER VANEGAS Study:Transvaginal Non- Date of Exam: 08/31/24 Exam# [id number] Ordering Dr: Radha Conrad MD PROCEDURE: TRANSVAGINAL NON- 08/31/2024 REASON FOR EXAM: ABLA, HEAVY CYCLES TECHNIQUE: TRANSVAGINAL NON- COMPARISON: None FINDINGS: LMP: August 14, 2024. Measurements: Uterus: 12.1 cm x 8.5 cm x 8.2 cm with a volume of 442.86 mL. A nabothian cyst is seen. Findings suggestive of a 6.5 cm 6.7 cm 6.5 cm subendometrial fibroid. Endometrial Thickness: Not well visualized. Right Ovary: 3.5 cm x 3.6 cm x with a volume of 12.61 mL. Left Ovary: 3.3 cm x 2.9 cm x 2.4 cm with a volume of 12.01 mL. Uterus: Enlarged uterus. Findings suggestive of a 6.5 cm 6.7 cm 6.5 cm sub endometrial fibroid. Endometrium: Not well visualized as described. Right ovary: 1.8 cm 1.8 cm 1.2 cm resolving cyst. Left ovary: Normal size and echotexture. Other: No large pelvic mass identified. US/Transvaginal Non- IMPRESSION: Findings suggestive of a 6.5 cm 6.7 cm 6.5 cm subendometrial fibroid. Reading Location: [place] [address] CC: Dr. Lori Conrad MD; Dr. Inocencio Frye MD ~ Manager Publishing: Signed 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 Inocencio Frye MD Status:AD M ROMINA Location: [facility] [id number] Assessment & Plan (1) Menorrhagia, premenopausal: (2) Iron deficiency anemia: (3) Acute blood loss anemia: PLAN: Plan plan is to dc to home with progesterone follow up in office for an EMB we discssed extensively the need for hysterectomy due to large fibroid uterus. Due to the fibroid, the anemia, and the 2 prior sections, I recomend robotic approach to limit more blood loss during the surgery and limit OR time. HPI Consult Data Date of Consult: 08/31/24 HPI Narrative HPI Narrative: GALINDO JOHNSTON, is a 44 y/o G2 P 2 (2 sections) who presents to [facility] for iron deficiency anemia. She states that she was feeling fine but her pcp calledher after routine blood work was done at his offic and told her to go to the ER.She was given 2 units of PRBCs and IV iron.I was consulted to discuss menorrhagia as being the cause of her anemia. LMP: middle of july- very heavy. uses a super plus tampon every hour medications tried in the past: none Was seeing Dr. Chandra at [facility] until 2021 Last pap: 2021 - nomal per her report previous abnormal pap: none Last mammogram:12/2023- normal h/o abnormal mammogram:no Thyroid studies:pending bleeding disorder: none contraception: tubal ligation colon cancer screening: up to date and done recentlu health maintenance up to date: followed by Dr. Carrillo ultrasound of uterus: FINDINGS: LMP: August 14, 2024. Measurements: Uterus: 12.1 cm x 8.5 cm x 8.2 cm with a volume of 442.86 mL. A nabothian cyst is seen. Findings suggestive of a 6.5 cm 6.7 cm 6.5 cm subendometrial fibroid. Endometrial Thickness: Not well visualized. Right Ovary: 3.5 cm x 3.6 cm x with a volume of 12.61 mL. Left Ovary: 3.3 cm x 2.9 cm x 2.4 cm with a volume of 12.01 mL. Uterus: Enlarged uterus. Findings suggestive of a 6.5 cm 6.7 cm 6.5 cm sub endometrial fibroid. Endometrium: Not well visualized as described. Right ovary: 1.8 cm 1.8 cm 1.2 cm resolving cyst. Left ovary: Normal size and echotexture. Other: No large pelvic mass identified. US/Transvaginal Non- IMPRESSION: Findings suggestive of a 6.5 cm 6.7 cm 6.5 cm subendometrial fibroid. PFSH Medical History Anxiety Former smoker Medical History no medical history Home Medications ?Medication ?Instructions ?Recorded ?Last Taken ?Type cholecalciferol (vitamin D3) 100 100 mcg PO DAILY lori min 08/30/24 Unknown History mcg (4,000 unit) capsule escitalopram oxalate 20 mg tablet 20 mg PO DAILY [facility] 08/30/24 Unknown History ropinirole 0.5 mg tablet 1 mg PO QHS restless legs Unknown History ferrous gluconate 324 mg (38 mg 324 mg PO DAILY 30 day s #30 tabs 08/31/24 Unknown Rx iron) tablet medroxyprogesterone 5 mg tablet 5 mg PO DAILY 30 days #30 tabs 08/31/24 Unknown Rx Allergy/AdvReac Type Severity Reaction Status Date / Time codeine Allergy PT UNSURE Verified 08/30/24 14:28 OF REACTION Family History no significant family his Surgical History no surgical history Social History Smoking Status: Never smoker Vital Signs Vital Signs Vital Signs: 08/30/24 14:29 08/30/24 15:28 08/30/24 16:00 Temperature 97.1 F L Temperature Source Temporal Pulse Rate 118 H 81 70 Respiratory Rate 18 15 16 Respiratory Effort Respiratory Depth Respiratory Pattern Blood Pressure 153/58 H 121/75 H 131/74 H Blood Pressure Mean 89 90 93 Blood Pressure Source Blood Pressure Position Blood Pressure Location Pulse Ox 100 95 100 Oxygen Delivery Method Room Air Room Air Room Air 08/30/24 16:54 08/30/24 16:59 08/30/24 17:00 Temperature 98.3 F 98.3 F Temperature Source Oral Oral Pulse Rate 84 77 Respiratory Rate 20 H 15 Respiratory Effort Respiratory Depth Respiratory Pattern Blood Pressure 122/72 H 125/81 H 125/81 H Blood Pressure Mean 88 95 95 Blood Pressure Source Monitor Monitor Blood Pressure Position Semi-Fowlers Semi-Fowlers Blood Pressure Location Right Arm Right Arm Pulse Ox 100 100 Oxygen Delivery Method Room Air Room Air 08/30/24 17:14 08/30/24 18:00 08/30/24 18:01 Temperature 98.6 F 98.6 F Temperature Source Oral Pulse Rate 73 73 Respiratory Rate 18 16 Respiratory Effort Respiratory Depth Respiratory Pattern Blood Pressure 101/70 119/77 119/77 Blood Pressure Mean 80 91 91 Blood Pressure Source Monitor Blood Pressure Position Semi-Fowlers Blood Pressure Location Right Arm Pulse Ox 100 100 Oxygen Delivery Method Room Air 08/30/24 18:11 08/30/24 18:14 08/30/24 18:32 Temperature 98.3 F 98.3 F 98.3 F Temperature Source Oral Oral Oral Pulse Rate 73 73 Respiratory Rate 18 17 Respiratory Effort Respiratory Depth Respiratory Pattern Blood Pressure 119/77 119/77 Blood Pressure Mean 91 91 Blood Pressure Source Monitor Monitor Blood Pressure Position Semi-Fowlers Semi-Fowlers Blood Pressure Location Right Arm Left Arm Pulse Ox 100 100 Oxygen Delivery Method Room Air Room Air 08/30/24 18:47 08/30/24 18:53 08/30/24 19:47 Temperature 98.5 F 98.2 F Temperature Source Oral Oral Pulse Rate 82 71 Respiratory Rate 17 17 Respiratory Effort Respiratory Depth Respiratory Pattern Blood Pressure 119/77 113/80 125/76 H Blood Pressure Mean 91 91 92 Blood Pressure Source Monitor Monitor Blood Pressure Position Semi-Fowlers Semi-Fowlers Blood Pressure Location Right Arm Right Arm Pulse Ox 100 99 Oxygen Delivery Method Room Air Room Air 08/30/24 21:30 08/30/24 21:32 08/31/24 03:29 Temperature 100 F H 97.2 F L Temperature Source Oral Temporal Pulse Rate 80 80 Respiratory Rate 18 16 Respiratory Effort Normal Non-Labored Respiratory Depth Normal Respiratory Pattern Normal Blood Pressure 127/77 H 128/72 H Blood Pressure Mean 93 90 Blood Pressure Source Monitor Monitor Blood Pressure Position Semi-Fowlers Supine Blood Pressure Location Right Arm Right Arm Pulse Ox 100 98 Oxygen Delivery Method Room Air Room Air Room Air 08/31/24 03:29 Temperature Temperature Source Pulse Rate Respiratory Rate Respiratory Effort Normal Non-Labored Respiratory Depth Normal Respiratory Pattern Normal Blood Pressure Blood Pressure Mean Blood Pressure Source Blood Pressure Position Blood Pressure Location Pulse Ox Oxygen Delivery Method Room Air Weight Weight: 145 lb 8.081 oz Body Mass Index (BMI) 25.0 ROS Constitutional Constitutional: Reports other Details: only feels tired when walking ; Denies fatigue, fever(s), malaise or weakness Cardiovascular Cardiovascular: Denies chest pain, dyspnea, lightheadedness, palpitations or syncope Respiratory/Chest Respiratory/Chest: Denies cough, dyspnea or hemoptysis Gastrointestinal Gastrointestinal: Denies abdominal pain, anorexia, bloating or change in bowel habits Genitourinary Genitourinary: Denies burning urination, dysuria, hematuria or urinary frequency Musculoskeletal Musculoskeletal: Denies back pain or difficulty walking Neurologic Neurologic: Denies confusion, dizziness, headache(s) or numbness Endocrine Endocrinology: Denies cold intolerance, excessive sweating or heat intolerance Hematologic/Lymphatic Hematologic/Lymphatic: Reports anemia, easy bleeding and easy bruising Physical Exam Const alert, oriented x3 and no apparent distress HEENT normocephalic Eyes conjunctivae normal and no scleral icterus Resp normal respiratory effort Cardio regular rate and regular rhythm GI normal to inspection, nondistended, normoactive bowel sounds Extremity normal to inspection, no clubbing, cyanosis or edema and no calf tenderness Skin no rashes or lesions noted Lab / Micro Data 08/31/24 06:52 08/31/24 06:52 Labs: Laboratory Results - last 24 hr 08/30/24 14:47: WBC 5.0, RBC 3.45 L, Hgb 5.9 L*, Hct 23.1 L, MCV 67.0 L, MCH 17.1 L, MCHC 25.5 L, RDW Std Deviation 44.3 H, RDW Coeff of Aristides 18.8 H, Plt Count 204, MPV TNP, Immature Gran % (Auto) 0.400, Neut % (Auto) 61.1, Lymph % (Auto) 22.6, [place] % (Auto) 12.7 H, Eos % (Auto) 2.2, Baso % (Auto) 1.0, AbsoluteNeuts (auto) 3.0, Absolute Lymphs (auto) 1.12, Nucleated RBC % 0, Sodium 139, Potassium 3.8, Chloride 106, Carbon Dioxide 19.2 L, Anion Gap 13, BUN 8, Creatinine 0.66 L, Estim Creat Clear Calc 99.69, Est GFR (MDRD) Non-Af 109, BUN/Creatinine Ratio 12.8, Glucose 97, Calcium 9.2, Magnesium 2.2, Blood Type O POSITIVE, Antibody Screen NEGATIVE, Crossmatch See Detail 08/30/24 22:23: Hgb 7.7 L, Hct 26.6 L 08/31/24 06:52: WBC 4.1 L, RBC 3.75 L, Hgb 7.5 L, Hct 26.2 L, MCV 69.9 L, MCH 20.0 L, MCHC 28.6 L D, RDW Std Deviation 52.3 H, RDW Coeff of Aristides 20.9 H, Plt Count 162, Immature Gran % (Auto) 0.200, Neut % (Auto) 67.1, Lymph % (Auto) 16.0L, [place] % (Auto) 13.8 H, Eos % (Auto) 1.7, Baso % (Auto) 1.2 H, Absolute Neuts (auto) 2.8, Absolute Lymphs (auto) 0.66 L, Nucleated RBC % 0 Micro: Microbiology 08/30/24 15:46 Stool Stool Occult Blood (MOJGAN) - Final Charges/Coding Visit Charges Inpatient E&M: 75448 Init Hosp L3 08/31/24 1314 <Electronically signed by Roxanna King DO> Cosigner Signature (if applicable): CC: Dr. Inocencio Frye MD~ Signed [facility] Work Phone: 1(329) 952-636007-08-2025 History and physical note Author Johnny Zamora [facility] Note Date/Time August 30, 2024 8:08p m [facility] Medical Records Department [address] [place] [address] H&P Exam - Hospitalist 08/30/24 1852 MR#: [id number] Acct: [id number] Name: GALINDO JOHNSTON Rep #:[id number] : 1980 44 From: Johnny Soto PCP: Dr. Inocencio Frye MD Status:[facility] Location: [place] [address] HPI - General General Date of Admission: 08/30/24 Date of Service: 08/30/24 Chief Complaint: Abnormal lab, severe anemia sent by PCP HPI Narrative GALINDO JOHNSTON, is a 44 F with history of chronic iron deficiency anemia from menometrorrhagia was sent to ED by PCP for low hemoglobin 5.5 g%. Patient has history of chronic anemia due to abnormal menstrual period. She gets frequent iron infusion. She denies GI bleed including hematemesis melena, hematochezia or hemoptysis or external bleeding. She said she had last menstrual period lasted for 6 to 7 days out of which first2 days were very heavy. She finished her last menstrual period about 5 to 7 days ago She had abnormal periods/menorrhagia during her younger days and then became irregular. She started having irregular heavy menstrual period from last 2 to 3years. In ED, 2 units of PRBC ordered and patient is second unit of PRBC transfusion. She does not have symptoms of anemia including dyspnea on exertion, dizziness, lightheadedness, palpitation, near-syncope or syncope. No chest pain pressure or tightness In ED when she first came in she was tachycardic 118/min but later on vitals including heart rate became normal [facility] Medical History Anxiety Former smoker Medical History no medical history Home Medications ?Medication ?Instructions ?Recorded ?Last Taken ?Type cholecalciferol (vitamin D3) 100 100 mcg PO DAILY 10/17 Unknown History mcg (4,000 unit) capsule escitalopram oxalate 20 mg tablet 20 mg PO DAILY 08/30 Unknown History ropinirole 0.5 mg tablet 1 mg PO QHS 08/30/24 Unknown History Allergy/AdvReac Type Severity Reaction Status Date / Time codeine Allergy PT UNSURE Verified 08/30/24 14:28 OF REACTION Family History no significant family his Surgical History no surgical history Social History Smoking Status: Never smoker ROS ROS Narrative Constitutional: Reports no acute fatigue and weakness. No fever. HEENT: Reports systems reviewed and no addt'l complaints, except as documented Respiratory/Chest: No acute shortness of breath or respiratory distress or wheezing. CVS: No chest pressure or tightness. Gastrointestinal: Denies coffee ground emesis, hematemesis or vomiting Genitourinary: Irregular menstrual period. Denies burning urination or new urinary tract symptoms Musculoskeletal: Denies acute joint pain or limited range of motion. No acute injury Neurologic: Denies seizure-like symptoms. skin: No ulcer. No rash Endocrinology: Reports systems reviewed and no addt'l complaints, except as documented Hematologic/Lymphatic: Reports systems reviewed and no addt'l complaints, exceptas documented Rest 14 ROS are negative except as mentioned in HPI Vital Signs Vital Signs Vital Signs: 08/30/24 14:29 08/30/24 15:28 08/30/24 16:00 Temperature 97.1 F L Temperature Source Temporal Pulse Rate 118 H 81 70 Respiratory Rate 18 15 16 Blood Pressure 153/58 H 121/75 H 131/74 H Blood Pressure Mean 89 90 93 Blood Pressure Source Blood Pressure Position Blood Pressure Location Pulse Ox 100 95 100 Oxygen Delivery Method Room Air Room Air Room Air 08/30/24 16:54 08/30/24 16:59 08/30/24 17:00 Temperature 98.3 F 98.3 F Temperature Source Oral Oral Pulse Rate 84 77 Respiratory Rate 20 H 15 Blood Pressure 122/72 H 125/81 H 125/81 H Blood Pressure Mean 88 95 95 Blood Pressure Source Monitor Monitor Blood Pressure Position Semi-Fowlers Semi-Fowlers Blood Pressure Location Right Arm Right Arm Pulse Ox 100 100 Oxygen Delivery Method Room Air Room Air 08/30/24 17:14 08/30/24 18:00 08/30/24 18:01 Temperature 98.6 F 98.6 F Temperature Source Oral Pulse Rate 73 73 Respiratory Rate 18 16 Blood Pressure 101/70 119/77 119/77 Blood Pressure Mean 80 91 91 Blood Pressure Source Monitor Blood Pressure Position Semi-Fowlers Blood Pressure Location Right Arm Pulse Ox 100 100 Oxygen Delivery Method Room Air 08/30/24 18:11 08/30/24 18:14 08/30/24 18:32 Temperature 98.3 F 98.3 F 98.3 F Temperature Source Oral Oral Oral Pulse Rate 73 73 Respiratory Rate 18 17 Blood Pressure 119/77 119/77 Blood Pressure Mean 91 91 Blood Pressure Source Monitor Monitor Blood Pressure Position Semi-Fowlers Semi-Fowlers Blood Pressure Location Right Arm Left Arm Pulse Ox 100 100 Oxygen Delivery Method Room Air Room Air 08/30/24 18:47 Temperature 98.5 F Temperature Source Oral Pulse Rate 82 Respiratory Rate 17 Blood Pressure 119/77 Blood Pressure Mean 91 Blood Pressure Source Monitor Blood Pressure Position Semi-Fowlers Blood Pressure Location Right Arm Pulse Ox 100 Oxygen Delivery Method Room Air Weight Weight: 145 lb 14.4 oz Body Mass Index (BMI) 25.0 Physical Exam Narrative General: Alert, Oriented x3, Cooperative HEENT: Atraumatic, PERRLA, EOMI, Normocephalic. Oral: No Gingival or Mucosal Lesions/ Ulcerations Neck: Supple, No JVD, Negative Carotid Bruits Chest wall/Lungs: Air entry diminished in bilateral lung bases. No crepitation/rhonchi Cardiovascular: Regular rate and rhythm, Normal S1,S2, No M/G/R Abdomen: Bowel Sounds Present, Soft, Non Tender, Non-Distended : No dysuria. No renal angle tenderness. No suprapubic tenderness. Extremities: No edema, Capillary Refill Less than 3 Seconds Skin: No rashes, No breakdown Musculoskeletal: No Tenderness to Palpation of Joints or Extremities Neurological: Cranial nerves II-XII grossly intact, DTR 2+/4. No acute focal neurological deficit. Psych/Mental Status: Normal Affect, Appropriate. Results Lab / Micro Data 08/30/24 14:47 08/30/24 14:47 Labs: Laboratory Results - last 24 hr 08/30/24 14:47: WBC 5.0, RBC 3.45 L, Hgb 5.9 L*, Hct 23.1 L, MCV 67.0 L, MCH 17.1 L, MCHC 25.5 L, RDW Std Deviation 44.3 H, RDW Coeff of Aristides 18.8 H, Plt Count 204, MPV TNP, Immature Gran % (Auto) 0.400, Neut % (Auto) 61.1, Lymph % (Auto) 22.6, [place] % (Auto) 12.7 H, Eos % (Auto) 2.2, Baso % (Auto) 1.0, AbsoluteNeuts (auto) 3.0, Absolute Lymphs (auto) 1.12, Nucleated RBC % 0, Sodium 139, Potassium 3.8, Chloride 106, Carbon Dioxide 19.2 L, Anion Gap 13, BUN 8, Creatinine 0.66 L, Estim Creat Clear Calc 99.69, Est GFR (MDRD) Non-Af 109, BUN/Creatinine Ratio 12.8, Glucose 97, Calcium 9.2, Blood Type O POSITIVE, Antibody Screen NEGATIVE, Crossmatch See Detail Micro: Microbiology 08/30/24 15:46 Stool Stool Occult Blood (MOJGAN) - Final Assessment & Plan Assessment/Plan (1) Acute blood loss anemia: (2) Iron deficiency anemia: PLAN: Plan This 44-year-old female is being admitted for severe anemia most likely due to menometrorrhagia 1. Acute anemia of blood loss due to menometrorrhagia, Asymptomatic: Patient isbeing admitted in PCU as an observation. She is currently on secondary her PRBCtransfusion. H&H after second of PRBC. 1 iron infusion ordered for tomorrow a.m. Monitor vitals. She recently has changed [employer] to Dr. Mckinney but has not seen her yet. Her previous [employer] wanted to put on hormonal pills but states that she already had tubal ligation and did not want hormonal supplement. I think she needs urgent GI visit as an outpatient to rule out endometrial hyperplasia or other causes of perimenopausal vaginal bleeding 2. Chronic iron deficiency anemia: The patient further said that she did not take her iron tablet for last 1 week. Patient will need to be discharged on iron supplement and ascorbic acid. She had iron lab work done but results are pending. 3. Mild non-anion gap metabolic acidosis probably due to severe anemia: Bicarb is 19.2, anion gap 13, normal. IV fluid Ringer lactate after blood transfusion. Serum magnesium ordered Other comorbidities include mild anxiety/depression on escitalopram, possible restless leg disease on ropinirole: Patient also on vitamin D3 supplement. Homemedications DVT prophylaxis: Moderate risk. Pharmaceutical prophylaxis contraindicated because of severe anemia. Bilateral SCDs Living will/advanced directive/end of life care: Patient does not have living will or advanced directive. Her in the ED is next to kin. She does nothave designated power of contract attorney for health. After discussion of benefits/risks procedures involved with full code, DNR CC arrest and DNR CC, the patient opted for full code. Patient does want artificial life support including intubation, tube feed, ventilator and/chest compression, central venous catheter, vasopressor and DC shock if needed Total time spent in [id number] encounter in discussion of advanced directive 17 minutes. Microbiology Past 72 Hours 08/30/24 15:46 Stool Stool Occult Blood (MOJGAN) - Final Laboratory Results 08/30/24 14:47: WBC 5.0, RBC 3.45 L, Hgb 5.9 L*, Hct 23.1 L, MCV 67.0 L, MCH 17.1 L, MCHC 25.5 L, RDW Std Deviation 44.3 H, RDW Coeff of Aristides 18.8 H, Plt Count 204, MPV TNP, Immature Gran % (Auto) 0.400, Neut % (Auto) 61.1, Lymph % (Auto) 22.6, [place] % (Auto) 12.7 H, Eos % (Auto) 2.2, Baso % (Auto) 1.0, AbsoluteNeuts (auto) 3.0, Absolute Lymphs (auto) 1.12, Nucleated RBC % 0, Sodium 139, Potassium 3.8, Chloride 106, Carbon Dioxide 19.2 L, Anion Gap 13, BUN 8, Creatinine 0.66 L, Estim Creat Clear Calc 99.69, Est GFR (MDRD) Non-Af 109, BUN/Creatinine Ratio 12.8, Glucose 97, Calcium 9.2, Iron Pending, TIBC Pending, Iron Saturation Pending, Unsaturated IBC Pending, Blood Type O POSITIVE, Antibody Screen NEGATIVE, Crossmatch See Detail Charges/Coding Visit Charges Inpatient E&M: 12655 Init Hosp L3 Procedures Hospitalists Procedures: 95398 Advncd Care Plan 30 Min 08/30/242007 <Electronically signed by Johnny Zamora MD> Cosigner Signature (if applicable): CC: Dr. Inocencio Frye MD; Dr. Johnny Zamora MD~ Signed [facility] Work Phone: 1(192) 665-150607-08-2025 Discharge summary Author Joselito Maldonado [facility] Note Date/Time August 30, 2024 7:03p m [facility] Medical Records Department [address] [facility] [place] [address] Emergency Department Summary 08/30/24 MR#: [id number] Acct: [id number] Name: GALINDO JOHNSTON Rep #:[id number] : 1980 44 From: Joselito oliver DO PCP: Dr. Inocencio Frye MD Status:RE G ER Location: ED HPI History of Present Illness Chief Complaint: Abn Labs Narrative Narrative: C chief complaint and HPI: Anemia. 44-year-old female with past medical historyof iron deficiency anemia presents for evaluation of anemia. Patient states shehad a routine blood work performed in which she was found to have a hemoglobin of 5.5. She states that she was sent to the emergency department. She states she has not taken her iron pills for 1 week. Patient endorses heavy menstrual cycles for several years. They are regular when she has them monthly. States her last menstrual cycle ended about a week ago. She denies any lightheadedness, headache, fatigue, paleness, abdominal pain, nausea, vomiting, bloody bowel movements. She has never had a colonoscopy. She denies any daily NSAID use. Denies any alcohol abuse. No history of ulcers. Review of systems: See HPI Medications: As listed on the chart Allergies: As listed on the chart PFSH: Per chart Vital signs: As listed on the chart. Reviewed. Physical exam: Gen: A&O x3, NAD Head: Normocephalic, atraumatic Eyes: No sclera icterus, conjunctiva clear ENT: Moist mucous membranes Neck: Trachea midline, No JVD CV: RRR, no murmurs, no peripheral edema Resp: Lungs CTA BL, no w/r/c GI: Abd soft, non-distended, non-tender, no r/r/g Rectal: Nonthrombosed external hemorrhoids. Normal tone and sensation. No masses, fluctuance, or tenderness. No pain out of proportion. Stool is brown on the gloved finger. Musc: Full ROM, no deformity Skin: Warm, dry, pale Neuro: Alert, oriented, grossly intact, sensation intact Psych: Cooperative, appropriate mood and affect PFSH PFSH Medical History no medical history Home Medications ?Medication ?Instructions ?Recorded ?Last Taken ?Type cholecalciferol (vitamin D3) 100 100 mcg PO DAILY 10/17 Unknown History mcg (4,000 unit) capsule escitalopram oxalate 20 mg tablet 20 mg PO DAILY 08/30 Unknown History ropinirole 0.5 mg tablet 1 mg PO QHS 08/30/24 Unknown History Allergy/AdvReac Type Severity Reaction Status Date / Time codeine Allergy PT UNSURE Verified 08/30/24 14:28 OF REACTION Family History no significant family his Surgical History no surgical history Social History Smoking Status: Never smoker EXAM Physical Exam Const Vital Signs: 08/30/24 14:29 08/30/24 15:28 08/30/24 16:00 Temperature 97.1 F L Temperature Source Temporal Pulse Rate 118 H 81 70 Respiratory Rate 18 15 16 Blood Pressure 153/58 H 121/75 H 131/74 H Blood Pressure Mean 89 90 93 Blood Pressure Source Blood Pressure Position Blood Pressure Location Pulse Ox 100 95 100 Oxygen Delivery Method Room Air Room Air Room Air 08/30/24 16:54 08/30/24 16:59 08/30/24 17:00 Temperature 98.3 F 98.3 F Temperature Source Oral Oral Pulse Rate 84 77 Respiratory Rate 20 H 15 Blood Pressure 122/72 H 125/81 H 125/81 H Blood Pressure Mean 88 95 95 Blood Pressure Source Monitor Monitor Blood Pressure Position Semi-Fowlers Semi-Fowlers Blood Pressure Location Right Arm Right Arm Pulse Ox 100 100 Oxygen Delivery Method Room Air Room Air 08/30/24 17:14 08/30/24 18:00 08/30/24 18:01 Temperature 98.6 F 98.6 F Temperature Source Oral Pulse Rate 73 73 Respiratory Rate 18 16 Blood Pressure 101/70 119/77 119/77 Blood Pressure Mean 80 91 91 Blood Pressure Source Monitor Blood Pressure Position Semi-Fowlers Blood Pressure Location Right Arm Pulse Ox 100 100 Oxygen Delivery Method Room Air 08/30/24 18:11 08/30/24 18:14 08/30/24 18:32 Temperature 98.3 F 98.3 F 98.3 F Temperature Source Oral Oral Oral Pulse Rate 73 73 Respiratory Rate 18 17 Blood Pressure 119/77 119/77 Blood Pressure Mean 91 91 Blood Pressure Source Monitor Monitor Blood Pressure Position Semi-Fowlers Semi-Fowlers Blood Pressure Location Right Arm Left Arm Pulse Ox 100 100 Oxygen Delivery Method Room Air Room Air 08/30/24 18:47 08/30/24 18:53 Temperature 98.5 F Temperature Source Oral Pulse Rate 82 Respiratory Rate 17 Blood Pressure 119/77 113/80 Blood Pressure Mean 91 91 Blood Pressure Source Monitor Blood Pressure Position Semi-Fowlers Blood Pressure Location Right Arm Pulse Ox 100 Oxygen Delivery Method Room Air MDM MDM MDM Narrative Medical decision making narrative: 44-year-old female with past medical history of iron deficiency anemia presents for evaluation of anemia. Patient states she had a routine blood work performedin which she was found to have a hemoglobin of 5.5. She states she has not taken her iron pills for 1 week. Patient endorses heavy menstrual cycles for several years. Asymptomatic from the anemia. Differential diagnosis includes but is not limited to iron deficiency anemia, GI bleed. Basic labs ordered including iron studies and stool occult. CBC without leukocytosis. Patient has anemia with hemoglobin 9.9, up trending from 5.5. Platelet count unremarkable. Patient's MCV is low which is concerning for an iron deficiency anemia. BMP relatively unremarkable. Patient will warrant 2 units of packed RBCs. She consented. On chart review, patient has severe iron deficiency anemia. With aniron level of 9. Her stool occult is negative. She will warrant admission withfurther iron deficiency workup and possible iron transfusion. She confirmed understand the plan. Patient mated to the hospitalist service. Impression: 1. Severe anemia requiring blood transfusions 2. Severe iron deficiency anemia Lab Data Labs: Laboratory Results - last 24 hr 08/30/24 14:47 WBC 5.0 RBC 3.45 L Hgb 5.9 L* Hct 23.1 L MCV 67.0 L MCH 17.1 L MCHC 25.5 L RDW Std Deviation 44.3 H RDW Coeff of Aristides 18.8 H Plt Count 204 MPV TNP Immature Gran % (Auto) 0.400 Neut % (Auto) 61.1 Lymph % (Auto) 22.6 [place] % (Auto) 12.7 H Eos % (Auto) 2.2 Baso % (Auto) 1.0 Absolute Neuts (auto) 3.0 Absolute Lymphs (auto) 1.12 Nucleated RBC % 0 Sodium 139 Potassium 3.8 Chloride 106 Carbon Dioxide 19.2 L Anion Gap 13 BUN 8 Creatinine 0.66 L Estim Creat Clear Calc 99.69 Est GFR (MDRD) Non-Af 109 BUN/Creatinine Ratio 12.8 Glucose 97 Calcium 9.2 Blood Type O POSITIVE Antibody Screen NEGATIVE Crossmatch See Detail Discharge Plan Triage Chief Complaint: Abn Labs ED Provider: Joselito Maldonado Dx/Rx/DC Orders Prescriptions: No Action ropinirole 0.5 mg tablet 1 mg PO QHS escitalopram oxalate 20 mg tablet 20 mg PO DAILY cholecalciferol (vitamin D3) 100 mcg (4,000 unit) capsule 100 mcg PO DAILY Primary Care Provider: Inocencio Frye Referrals: Inocencio Frye MD [Primary Care Provider] - Print Language: Guyanese What to do if you have Problems For any increased pain, shortness of breath, bleeding, nausea or vomiting, chestpain, or any unexpected problems, contact your Primary Care Provider. Call [facility] ([phone]) or report to the closest Emergency Room. Call 911 if necessary. 08/30/24 190 <Electronically signed by Joselito Maldonado DO> Cosigner Signature (if applicable): CC: Dr. Inocencio Frye MD ~ Signed [facility] Work Phone: [phone]) [phone] Evaluation note* Diagnosis Onset Date Resolution Status Admit Date Acute blood loss anemia acute J [email or web address] 6:51pm Menorrhagia, premenopausal acute August 30, 2024 6:51pm Iron deficiency anemia chronic Ju 2024 6:51pm [facility] Work Phone: [phone] 218-763407-08-2025 Evaluation note* Diagnosis Onset Date Resolution Status Admit Date Acute blood loss anemia resolved J isaiah , 2025 6:51pm Iron deficiency anemia inactive Ju ly 2024 6:51pm Menorrhagia, premenopausal inactive August 30, 2024 6:51pm Fibroid uterus acute September 09, 2024 1:10pm Menorrhagia acute September 09 1:10pm [facility] Work Phone: [phone]) 592-445707-08-2025 Evaluation note* Diagnosis Onset Date Resolution Status Admit Date Acute blood loss anemia resolved J 2024 6:51pm Iron deficiency anemia inactive Ju 2024 6:51pm Menorrhagia, premenopausal inactive August 30, 2024 6:51pm Fibroid uterus acute September 09, 2024 1:10pm Menorrhagia acute September 09 1:10pm Fibroid uterus acute September 10:02am Menorrhagia acute October 21, 2024 10:02am [facility] Work Phone: [phone] History and physical note [facility] Medical Records Department [address] [place] [id number] H&P Exam - Hospitalist 08/30/24 1852 MR#: [id number] Acct: [id number] Name: GALINDO JOHNSTON Rep #:[id number] : 1980 44 From: Johnny Soto PCP: Dr. Inocencio Frye MD Status:[facility] Location: [place] [address] HPI - General General Date of Admission: 08/30/24 Date of Service: 08/30/24 Chief Complaint: Abnormal lab, severe anemia sent by PCP HPI Narrative GALINDO JOHNSTON, is a 44 F with history of chronic iron deficiency anemia from menometrorrhagia was sent to ED by PCP for low hemoglobin 5.5 g%. Patient has history of chronic anemia due to abnormal menstrual period. She gets frequent iron infusion. She denies GI bleed including hematemesis melena, hematochezia or hemoptysis or external bleeding. She said she had last menstrual period lasted for 6 to 7 days out of which first2 days were very heavy. She finished her last menstrual period about 5 to 7 days ago She had abnormal periods/menorrhagia during her younger days and then became irregular. She startedhaving irregular heavy menstrual period from last 2 to 3years. In ED, 2 units of PRBC ordered and patient is second unit of PRBC transfusion. She does not have symptoms of anemia including dyspnea on exertion, dizziness, lightheadedness, palpitation, near-syncope or syncope. No chest pain pressure or tightness In ED when she first came in she was tachycardic 118/min but later on vitals including heart rate became normal [facility] Medical History Anxiety Former smoker Medical History no medical history Home Medications ?Medication ?Instructions ?Recorded ?Last Taken ?Type cholecalciferol (vitamin D3) 100 100 mcg PO DAILY 10/17 Unknown History mcg (4,000 unit) capsule escitalopram oxalate 20 mg tablet 20 mg PO DAILY 08/30 Unknown History ropinirole 0.5 mg tablet 1 mg PO QHS 08/30/24 Unknown History Allergy/AdvReac Type Severity Reaction Status Date / Time codeine Allergy PT UNSURE Verified 08/30/24 14:28 OF REACTION Family History no significant family his Surgical History no surgical history Social History Smoking Status: Never smoker ROS ROS Narrative Constitutional: Reports no acute fatigue and weakness. No fever. HEENT: Reports systems reviewed and no addt'l complaints, except as documented Respiratory/Chest: No acute shortness of breath or respiratory distress or wheezing. CVS: No chest pressure or tightness. Gastrointestinal: Denies coffee ground emesis, hematemesis or vomiting Genitourinary: Irregular menstrual period. Denies burning urination or new urinary tract symptoms Musculoskeletal: Denies acute joint pain or limited range of motion. No acute injury Neurologic: Denies seizure-like symptoms. skin: No ulcer. No rash Endocrinology: Reports systems reviewed and no addt'l complaints, except as documented Hematologic/Lymphatic: Reports systems reviewed and no addt'l complaints, exceptas documented Rest 14 ROS are negative except as mentioned in HPI Vital Signs Vital Signs Vital Signs: 08/30/24 14:29 08/30/24 15:28 08/30/24 16:00 Temperature 97.1 F L Temperature Source Temporal Pulse Rate 118 H 81 70 Respiratory Rate 18 15 16 Blood Pressure 153/58 H 121/75 H 131/74 H Blood Pressure Mean 89 90 93 Blood Pressure Source Blood Pressure Position Blood Pressure Location Pulse Ox 100 95 100 Oxygen Delivery Method Room Air Room Air Room Air 08/30/24 16:54 08/30/24 16:59 08/30/24 17:00 Temperature 98.3 F 98.3 F Temperature Source Oral Oral Pulse Rate 84 77 Respiratory Rate 20 H 15 Blood Pressure 122/72 H 125/81 H 125/81 H Blood Pressure Mean 88 95 95 Blood Pressure Source Monitor Monitor Blood Pressure Position Semi-Fowlers Semi-Fowlers Blood Pressure Location Right Arm Right Arm Pulse Ox 100 100 Oxygen Delivery Method Room Air Room Air 08/30/24 17:14 08/30/24 18:00 08/30/24 18:01 Temperature 98.6 F 98.6 F Temperature Source Oral Pulse Rate 73 73 Respiratory Rate 18 16 Blood Pressure 101/70 119/77 119/77 Blood Pressure Mean 80 91 91 Blood Pressure Source Monitor Blood Pressure Position Semi-Fowlers Blood Pressure Location Right Arm Pulse Ox 100 100 Oxygen Delivery Method Room Air 08/30/24 18:11 08/30/24 18:14 08/30/24 18:32 Temperature 98.3 F 98.3 F 98.3 F Temperature Source Oral Oral Oral Pulse Rate 73 73 Respiratory Rate 18 17 Blood Pressure 119/77 119/77 Blood Pressure Mean 91 91 Blood Pressure Source Monitor Monitor Blood Pressure Position Semi-Fowlers Semi-Fowlers Blood Pressure Location Right Arm Left Arm Pulse Ox 100 100 Oxygen Delivery Method Room Air Room Air 08/30/24 18:47 Temperature 98.5 F Temperature Source Oral Pulse Rate 82 Respiratory Rate 17 Blood Pressure 119/77 Blood Pressure Mean 91 Blood Pressure Source Monitor Blood Pressure Position Semi-Fowlers Blood Pressure Location Right Arm Pulse Ox 100 Oxygen Delivery Method Room Air Weight Weight: 145 lb 14.4 oz Body Mass Index (BMI) 25.0 Physical Exam Narrative General: Alert, Oriented x3, Cooperative HEENT: Atraumatic, PERRLA, EOMI, Normocephalic. Oral: No Gingival or Mucosal Lesions/ Ulcerations Neck: Supple, No JVD, Negative Carotid Bruits Chest wall/Lungs: Air entry diminished in bilateral lung bases. No crepitation/rhonchi Cardiovascular: Regular rate and rhythm, Normal S1,S2, No M/G/R Abdomen: Bowel Sounds Present, Soft, Non Tender, Non-Distended : No dysuria. No renal angle tenderness. No suprapubic tenderness. Extremities: No edema, Capillary Refill Less than 3 Seconds Skin: No rashes, No breakdown Musculoskeletal: No Tenderness to Palpation of Joints or Extremities Neurological: Cranial nerves II-XII grossly intact, DTR 2+/4. No acute focal neurological deficit. Psych/Mental Status: Normal Affect, Appropriate. Results Lab / Micro Data 08/30/24 14:47 08/30/24 14:47 Labs: Laboratory Results - last 24 hr 08/30/24 14:47: WBC 5.0, RBC 3.45 L, Hgb 5.9 L*, Hct 23.1 L, MCV 67.0 L, MCH 17.1 L, MCHC 25.5 L, RDW Std Deviation 44.3 H, RDW Coeff of Aristides 18.8 H, Plt Count 204, MPV TNP, Immature Gran % (Auto) 0.400, Neut % (Auto) 61.1, Lymph % (Auto) 22.6, [place] % (Auto) 12.7 H, Eos % (Auto) 2.2, Baso % (Auto) 1.0, AbsoluteNeuts (auto) 3.0, Absolute Lymphs (auto) 1.12, Nucleated RBC % 0, Sodium 139, Potassium 3.8, Chloride 106, Carbon Dioxide 19.2 L, Anion Gap 13, BUN 8, Creatinine 0.66 L, Estim Creat Clear Calc 99.69, Est GFR (MDRD) Non-Af 109, BUN/Creatinine Ratio 12.8, Glucose 97, Calcium 9.2, Blood Type O POSITIVE, Antibody Screen NEGATIVE, Crossmatch See Detail Micro: Microbiology 08/30/24 15:46 Stool Stool Occult Blood (MOJGAN) - Final Assessment & Plan Assessment/Plan (1) Acute blood loss anemia: (2) Iron deficiency anemia: PLAN: Plan This 44-year-old female is being admitted for severe anemia most likely due to menometrorrhagia 1. Acute anemia of blood loss due to menometrorrhagia, Asymptomatic: Patient isbeing admitted in PCU as an observation. She is currently on secondary her PRBCtransfusion. H&H after second of PRBC. 1 iron infusion ordered for tomorrow a.m. Monitor vitals. She recently has changed [employer]SEM[employer]ER [employer]ING [employer] TABLE to Dr. Mckinney but has not seen her yet. Her previous [employer] wanted to put on hormonal pills but states that she already had tubal ligation and did not want hormonal supplement. I think she needs urgent GI visit as an outpatient to rule out endometrial hyperplasia or other causes of perimenopausal vaginal bleeding 2. Chronic iron deficiency anemia: The patient further said that she did not take her iron tablet for last 1 week. Patient will need to be discharged on iron supplement and ascorbic acid. She had iron lab work done but results are pending. 3. Mild non-anion gap metabolic acidosis probably due to severe anemia: Bicarb is 19.2, anion gap 13, normal. IV fluid Ringer lactate after blood transfusion. Serum magnesium ordered Other comorbidities include mild anxiety/depression on escitalopram, possible restless leg disease on ropinirole: Patient also on vitamin D3 supplement. Homemedications DVT prophylaxis: Moderate risk. Pharmaceutical prophylaxis contraindicated because of severe anemia. Bilateral SCDs Living will/advanced directive/end of life care: Patient does not have living will or advanced directive. Her in the ED is next to kin. She does nothave designated power of contract attorney for health. After discussion of benefits/risks procedures involved with full code, DNR CC arrest and DNR CC, the patient opted for full code. Patient does want artificial life support including intubation, tube feed, ventilator and/chest compression, central venous catheter, vasopressor and DC shock if needed Total time spent in vali-pc-pfhm encounter in discussion of advanced directive 17 minutes. Microbiology Past 72 Hours 08/30/24 15:46 Stool Stool Occult Blood (MOJGAN) - Final Laboratory Results 08/30/24 14:47: WBC 5.0, RBC 3.45 L, Hgb 5.9 L*, Hct 23.1 L, MCV 67.0 L, MCH 17.1 L, MCHC 25.5 L, RDW Std Deviation 44.3 H, RDW Coeff of Aristides 18.8 H, Plt Count 204, MPV TNP, Immature Gran % (Auto) 0.400, Neut % (Auto) 61.1, Lymph % (Auto) 22.6, Kiowa % (Auto) 12.7 H, Eos % (Auto) 2.2, Baso % (Auto) 1.0, AbsoluteNeuts (auto) 3.0, Absolute Lymphs (auto) 1.12, Nucleated RBC % 0, Sodium 139, Potassium 3.8, Chloride 106, Carbon Dioxide 19.2 L, Anion Gap 13, BUN 8, Creatinine 0.66 L, Estim Creat Clear Calc 99.69, Est GFR (MDRD) Non-Af 109, BUN/Creatinine Ratio 12.8, Glucose 97, Calcium 9.2, Iron Pending, TIBC Pending, Iron Saturation Pending, Unsaturated IBC Pending, Blood Type O POSITIVE, AntibodyScreen NEGATIVE, Crossmatch See Detail Charges/Coding Visit Charges Inpatient E&M: 60793 Init Hosp L3 Procedures Hospitalists Procedures: 47160 Advncd Care Plan 30 Min 08/30/242007 Cosigner Signature (if applicable): CC: Dr. Inocencio Frye MD; Dr. Johnny Zamora MD~ Signed [facility]07-08-2025 Discharge summary [facility] Medical Records Department [address] [place] [address] Emergency Department Summary 08/30/24 MR#: [id number] Acct: [id number] Name: GALINDO JOHNSTON Rep #:[id number] : 1980 44 From: Joselito masonett DO PCP: Dr. Inocencio Frye MD Status:RE G ER Location: ED HPI History of Present Illness Chief Complaint: Abn Labs Narrative Narrative: C chief complaint and HPI: Anemia. 44-year-old female with past medical historyof iron deficiency anemia presents for evaluation of anemia. Patient states shehad a routine blood work performed in which she was found to have a hemoglobin of 5.5. She states that she was sent to the emergency department. She states she has not taken her iron pills for 1 week. Patient endorses heavy menstrual cycles for several years. They are regular when she has them monthly. States her last menstrual cycle endedabout a week ago. She denies any lightheadedness, headache, fatigue, paleness, abdominal pain, nausea, vomiting, bloody bowel movements. She has never had a colonoscopy. She denies any daily NSAID use. Denies any alcohol abuse. No history of ulcers. Review of systems: See HPI Medications: As listed on the chart Allergies: As listed on the chart PFSH: Per chart Vital signs: As listed on the chart. Reviewed. Physical exam: Gen: A&O x3, NAD Head: Normocephalic, atraumatic Eyes: No sclera icterus, conjunctiva clear ENT: Moist mucous membranes Neck: Trachea midline, No JVD CV: RRR, no murmurs, no peripheral edema Resp: Lungs CTA BL, no w/r/c GI: Abd soft, non-distended, non-tender, no r/r/g Rectal: Nonthrombosed external hemorrhoids. Normal tone and sensation. No masses, fluctuance, or tenderness. No pain out of proportion. Stool is brown on the gloved finger. Musc: Full ROM, no deformity Skin: Warm, dry, pale Neuro: Alert, oriented, grossly intact, sensation intact Psych: Cooperative, appropriate mood and affect PFSH PFSH Medical History no medical history Home Medications ?Medication ?Instructions ?Recorded ?Last Taken ?Type cholecalciferol (vitamin D3) 100 100 mcg PO DAILY 10/17 Unknown History mcg (4,000 unit) capsule escitalopram oxalate 20 mg tablet 20 mg PO DAILY 08/30 Unknown History ropinirole 0.5 mg tablet 1 mg PO QHS 08/30/24 Unknown History Allergy/AdvReac Type Severity Reaction Status Date / Time codeine Allergy PT UNSURE Verified 08/30/24 14:28 OF REACTION Family History no significant family his Surgical History no surgical history Social History Smoking Status: Never smoker EXAM Physical Exam Const Vital Signs: 08/30/24 14:29 08/30/24 15:28 08/30/24 16:00 Temperature 97.1 F L Temperature Source Temporal Pulse Rate 118 H 81 70 Respiratory Rate 18 15 16 Blood Pressure 153/58 H 121/75 H 131/74 H Blood Pressure Mean 89 90 93 Blood Pressure Source Blood Pressure Position Blood Pressure Location Pulse Ox 100 95 100 Oxygen Delivery Method Room Air Room Air Room Air 08/30/24 16:54 08/30/24 16:59 08/30/24 17:00 Temperature 98.3 F 98.3 F Temperature Source Oral Oral Pulse Rate 84 77 Respiratory Rate 20 H 15 Blood Pressure 122/72 H 125/81 H 125/81 H Blood Pressure Mean 88 95 95 Blood Pressure Source Monitor Monitor Blood Pressure Position Semi-Fowlers Semi-Fowlers Blood Pressure Location Right Arm Right Arm Pulse Ox 100 100 Oxygen Delivery Method Room Air Room Air 08/30/24 17:14 08/30/24 18:00 08/30/24 18:01 Temperature 98.6 F 98.6 F Temperature Source Oral Pulse Rate 73 73 Respiratory Rate 18 16 Blood Pressure 101/70 119/77 119/77 Blood Pressure Mean 80 91 91 Blood Pressure Source Monitor Blood Pressure Position Semi-Fowlers Blood Pressure Location Right Arm Pulse Ox 100 100 Oxygen Delivery Method Room Air 08/30/24 18:11 08/30/24 18:14 08/30/24 18:32 Temperature 98.3 F 98.3 F 98.3 F Temperature Source Oral Oral Oral Pulse Rate 73 73 Respiratory Rate 18 17 Blood Pressure 119/77 119/77 Blood Pressure Mean 91 91 Blood Pressure Source Monitor Monitor Blood Pressure Position Semi-Fowlers Semi-Fowlers Blood Pressure Location Right Arm Left Arm Pulse Ox 100 100 Oxygen Delivery Method Room Air Room Air 08/30/24 18:47 08/30/24 18:53 Temperature 98.5 F Temperature Source Oral Pulse Rate 82 Respiratory Rate 17 Blood Pressure 119/77 113/80 Blood Pressure Mean 91 91 Blood Pressure Source Monitor Blood Pressure Position Semi-Fowlers Blood Pressure Location Right Arm Pulse Ox 100 Oxygen Delivery Method Room Air MDM MDM MDM Narrative Medical decision making narrative: 44-year-old female with past medical history of iron deficiency anemia presents for evaluation of anemia. Patient states she had a routine blood work performedin which she was found to have a hemoglobin of 5.5. She states she has not taken her iron pills for 1 week. Patient endorses heavy menstrualcycles for several years. Asymptomatic from the anemia. Differential diagnosis includes but is not limited to iron deficiency anemia, GI bleed. Basic labs ordered including iron studies and stool occult. CBC without leukocytosis. Patient has anemia with hemoglobin 9.9, up trending from 5.5. Platelet count unremarkable. Patient's MCV is low which is concerning for an iron deficiency anemia. BMP relatively unremarkable. Patient will warrant 2 units of packed RBCs. She consented. On chart review, patient has severe iron deficiency anemia. With aniron level of 9. Her stool occult is negative. Shewill warrant admission withfurther iron deficiency workup and possible iron transfusion. She confirmed understand the plan. Patient mated to the hospitalist service. Impression: 1. Severe anemia requiring blood transfusions 2. Severe iron deficiency anemia Lab Data Labs: Laboratory Results - last 24 hr 08/30/24 14:47 WBC 5.0 RBC 3.45 L Hgb 5.9 L* Hct 23.1 L MCV 67.0 L MCH 17.1 L MCHC 25.5 L RDW Std Deviation 44.3 H RDW Coeff of Aristides 18.8 H Plt Count 204 MPV TNP Immature Gran % (Auto) 0.400 Neut % (Auto) 61.1 Lymph % (Auto) 22.6 Kiowa % (Auto) 12.7 H Eos % (Auto) 2.2 Baso % (Auto) 1.0 Absolute Neuts (auto) 3.0 Absolute Lymphs (auto) 1.12 Nucleated RBC % 0 Sodium 139 Potassium 3.8 Chloride 106 Carbon Dioxide 19.2 L Anion Gap 13 BUN 8 Creatinine 0.66 L Estim Creat Clear Calc 99.69 Est GFR (MDRD) Non-Af 109 BUN/Creatinine Ratio 12.8 Glucose 97 Calcium 9.2 Blood Type O POSITIVE Antibody Screen NEGATIVE Crossmatch See Detail Discharge Plan Triage Chief Complaint: Abn Labs ED Provider: Joseliot Maldonado Dx/Rx/DC Orders Prescriptions: No Action ropinirole 0.5 mg tablet 1 mg PO QHS escitalopram oxalate 20 mg tablet 20 mg PO DAILY cholecalciferol (vitamin D3) 100 mcg (4,000 unit) capsule 100 mcg PO DAILY Primary Care Provider: Inocencio Frye Referrals: Inocencio Frye MD [Primary Care Provider] - Print Language: Guyanese What to do if you have Problems For any increased pain, shortness of breath, bleeding, nausea or vomiting, chestpain, or any unexpected problems, contact your Primary Care Provider. Call [facility] ([phone]) or report tothe closest Emergency Room. Call 911 if necessary. 08/30/24 1903 Cosigner Signature (if applicable): CC: Dr. Inocencio Frye MD ~ Signed [facility]07-08-2025 Discharge summary Author Joselito Maldonado [facility] Note Date/Time August 30, 2024 7:03p m [facility] Medical Records Department [address] [place] [address] Emergency Department Summary 08/30/24 MR#: [id number] Acct: [id number] Name: PRESTONGALINDO Bradford Rep #:[id number] : 1980 44 From: Joselito Cooper ggett DO PCP: Dr. Inocencio Frye MD Status:RE G ER Location: ED HPI History of Present Illness Chief Complaint: Abn Labs Narrative Narrative: C chief complaint and HPI: Anemia. 44-year-old female with past medical historyof iron deficiency anemia presents for evaluation of anemia. Patient states shehad a routine blood work performed in which she was found to have a hemoglobin of 5.5. She states that she was sent to the emergency department. She states she has not taken her iron pills for 1 week. Patient endorses heavy menstrual cycles for several years. They are regular when she has them monthly. States her last menstrual cycle ended about a week ago. She denies any lightheadedness, headache, fatigue, paleness, abdominal pain, nausea, vomiting, bloody bowel movements. She has never had a colonoscopy. She denies any daily NSAID use. Denies any alcohol abuse. No history of ulcers. Review of systems: See HPI Medications: As listed on the chart Allergies: As listed on the chart PFSH: Per chart Vital signs: As listed on the chart. Reviewed. Physical exam: Gen: A&O x3, NAD Head: Normocephalic, atraumatic Eyes: No sclera icterus, conjunctiva clear ENT: Moist mucous membranes Neck: Trachea midline, No JVD CV: RRR, no murmurs, no peripheral edema Resp: Lungs CTA BL, no w/r/c GI: Abd soft, non-distended, non-tender, no r/r/g Rectal: Nonthrombosed external hemorrhoids. Normal tone and sensation. No masses, fluctuance, or tenderness. No pain out of proportion. Stool is brown on the gloved finger. Musc: Full ROM, no deformity Skin: Warm, dry, pale Neuro: Alert, oriented, grossly intact, sensation intact Psych: Cooperative, appropriate mood and affect PFSH PFSH Medical History no medical history Home Medications ?Medication ?Instructions ?Recorded ?Last Taken ?Type cholecalciferol (vitamin D3) 100 100 mcg PO DAILY 10/17 Unknown History mcg (4,000 unit) capsule escitalopram oxalate 20 mg tablet 20 mg PO DAILY 08/30 Unknown History ropinirole 0.5 mg tablet 1 mg PO QHS 08/30/24 Unknown History Allergy/AdvReac Type Severity Reaction Status Date / Time codeine Allergy PT UNSURE Verified 08/30/24 14:28 OF REACTION Family History no significant family his Surgical History no surgical history Social History Smoking Status: Never smoker EXAM Physical Exam Const Vital Signs: 08/30/24 14:29 08/30/24 15:28 08/30/24 16:00 Temperature 97.1 F L Temperature Source Temporal Pulse Rate 118 H 81 70 Respiratory Rate 18 15 16 Blood Pressure 153/58 H 121/75 H 131/74 H Blood Pressure Mean 89 90 93 Blood Pressure Source Blood Pressure Position Blood Pressure Location Pulse Ox 100 95 100 Oxygen Delivery Method Room Air Room Air Room Air 08/30/24 16:54 08/30/24 16:59 08/30/24 17:00 Temperature 98.3 F 98.3 F Temperature Source Oral Oral Pulse Rate 84 77 Respiratory Rate 20 H 15 Blood Pressure 122/72 H 125/81 H 125/81 H Blood Pressure Mean 88 95 95 Blood Pressure Source Monitor Monitor Blood Pressure Position Semi-Fowlers Semi-Fowlers Blood Pressure Location Right Arm Right Arm Pulse Ox 100 100 Oxygen Delivery Method Room Air Room Air 08/30/24 17:14 08/30/24 18:00 08/30/24 18:01 Temperature 98.6 F 98.6 F Temperature Source Oral Pulse Rate 73 73 Respiratory Rate 18 16 Blood Pressure 101/70 119/77 119/77 Blood Pressure Mean 80 91 91 Blood Pressure Source Monitor Blood Pressure Position Semi-Fowlers Blood Pressure Location Right Arm Pulse Ox 100 100 Oxygen Delivery Method Room Air 08/30/24 18:11 08/30/24 18:14 08/30/24 18:32 Temperature 98.3 F 98.3 F 98.3 F Temperature Source Oral Oral Oral Pulse Rate 73 73 Respiratory Rate 18 17 Blood Pressure 119/77 119/77 Blood Pressure Mean 91 91 Blood Pressure Source Monitor Monitor Blood Pressure Position Semi-Fowlers Semi-Fowlers Blood Pressure Location Right Arm Left Arm Pulse Ox 100 100 Oxygen Delivery Method Room Air Room Air 08/30/24 18:47 08/30/24 18:53 Temperature 98.5 F Temperature Source Oral Pulse Rate 82 Respiratory Rate 17 Blood Pressure 119/77 113/80 Blood Pressure Mean 91 91 Blood Pressure Source Monitor Blood Pressure Position Semi-Fowlers Blood Pressure Location Right Arm Pulse Ox 100 Oxygen Delivery Method Room Air MDM MDM MDM Narrative Medical decision making narrative: 44-year-old female with past medical history of iron deficiency anemia presents for evaluation of anemia. Patient states she had a routine blood work performedin which she was found to have a hemoglobin of 5.5. She states she has not taken her iron pills for 1 week. Patient endorses heavy menstrual cycles for several years. Asymptomatic from the anemia. Differential diagnosis includes but is not limited to iron deficiency anemia, GI bleed. Basic labs ordered including iron studies and stool occult. CBC without leukocytosis. Patient has anemia with hemoglobin 9.9, up trending from 5.5. Platelet count unremarkable. Patient's MCV is low which is concerning for an iron deficiency anemia. BMP relatively unremarkable. Patient will warrant 2 units of packed RBCs. She consented. On chart review, patient has severe iron deficiency anemia. With aniron level of 9. Her stool occult is negative. She will warrant admission withfurther iron deficiency workup and possible iron transfusion. She confirmed understand the plan. Patient mated to the hospitalist service. Impression: 1. Severe anemia requiring blood transfusions 2. Severe iron deficiency anemia Lab Data Labs: Laboratory Results - last 24 hr 08/30/24 14:47 WBC 5.0 RBC 3.45 L Hgb 5.9 L* Hct 23.1 L MCV 67.0 L MCH 17.1 L MCHC 25.5 L RDW Std Deviation 44.3 H RDW Coeff of Aristides 18.8 H Plt Count 204 MPV TNP Immature Gran % (Auto) 0.400 Neut % (Auto) 61.1 Lymph % (Auto) 22.6 Kiowa % (Auto) 12.7 H Eos % (Auto) 2.2 Baso % (Auto) 1.0 Absolute Neuts (auto) 3.0 Absolute Lymphs (auto) 1.12 Nucleated RBC % 0 Sodium 139 Potassium 3.8 Chloride 106 Carbon Dioxide 19.2 L Anion Gap 13 BUN 8 Creatinine 0.66 L Estim Creat Clear Calc 99.69 Est GFR (MDRD) Non-Af 109 BUN/Creatinine Ratio 12.8 Glucose 97 Calcium 9.2 Blood Type O POSITIVE Antibody Screen NEGATIVE Crossmatch See Detail Discharge Plan Triage Chief Complaint: Abn Labs ED Provider: Joselito Maldonado Dx/Rx/DC Orders Prescriptions: No Action ropinirole 0.5 mg tablet 1 mg PO QHS escitalopram oxalate 20 mg tablet 20 mg PO DAILY cholecalciferol (vitamin D3) 100 mcg (4,000 unit) capsule 100 mcg PO DAILY Primary Care Provider: Inocencio Frye Referrals: Inocencio Frye MD [Primary Care Provider] - Print Language: Guyanese What to do if you have Problems For any increased pain, shortness of breath, bleeding, nausea or vomiting, chestpain, or any unexpected problems, contact your Primary Care Provider. Call [facility] ([phone]) or report to the closest Emergency Room. Call 911 if necessary. 08/30/241902 <Electronically signed by Joselito Maldonado DO> Cosigner Signature (if applicable): CC: Dr. Inocencio Frye MD ~ Signed [facility] Work Phone: Discharge summary Author Lori Conrad [facility] Note Date/Time August 31, 2024 1:57p m [facility] Medical Records Department [address] [place] [address] Instructions for Home/Discharge Instructions 08/31/24 1253 MR#: [id number] Acct: [id number] Name: GALINDO JOHNSTON Rep #:[id number] : 1980 44 From: Lori Conrad MD PCP: Dr. Inocencio Frye MD Status:AD M ROMINA Discharge Instructions Diet Discharge Diet: No restrictions DC O2, CPAP, BIPAP needs Home O2 Discharge instructions: No Dressing / Incision Discharge Activity: Return to Normal Activity May resume sexual activity in: - (Please defer sexual intercourse until cleared per [employer] System Operator at follow-up.) Weight Bearing Status: Weight bearing as tolerated Dressing / Incision Call your doctor if you observe: - (Recurrent heavy vaginal bleeding, lightheadedness, dizziness, shortness of breath, chest pain.) Follow Up Care Test Results: Test results from this visit will be discussed in further detail at your follow- up appointment, if applicable. Discharge Plan Admission Admit Date/Time: 08/30/24 18:51 Primary Reason for Your Visit: Premenopausal Menorrhagia, ABLA, Fe deficiency anemia Attending Provider: Lori Conrad Primary Care Provider: Inocencio Frye Consulting Providers: Johnny Zamora; Roxanna King Instructions Additional Instructions / Restrictions: ADDITIONAL INSTRUCTIONS/PLAN OF CARE: --shoe maker would like you to continue medroxyprogesterone 5 mg tablet daily until you have your first cycle at which point they would like you to immediately callthem and likely they will increase this dose to 10 mg daily at that time. -- Please continue newly initiated oral iron supplementation which may be increased outpatient pending her toleration of this medication. It sometimes can cause constipation therefore [id number] stool softeners may be used aswell. --Please have follow-up complete blood count at follow-up with your primary carephysician as noted. --shoe maker office will contact you to arrange visit so that you also may have biopsy arranged as well as plan for upcoming robotic hysterectomy. --If at any point you have onset of heavy bleeding please immediately contact the shoe maker office. Discharge Orders/Prescriptions Prescriptions: New medroxyprogesterone 5 mg tablet 5 mg PO DAILY 30 Days Qty: 30 0RF Rx Instructions: Sports Athletic Trainer would like you to call them when start your cycle to possible increase. ferrous gluconate 324 mg (38 mg iron) tablet 324 mg PO DAILY 30 Days Qty: 30 0RF No Action ropinirole 0.5 mg tablet 1 mg PO QHS escitalopram oxalate 20 mg tablet 20 mg PO DAILY cholecalciferol (vitamin D3) 100 mcg (4,000 unit) capsule 100 mcg PO DAILY Referrals / Follow Up: Inocencio Frye MD [Primary Care Provider] - (Please follow-up in 3-5 days to review admission, have outpatient repeat complete blood count assessment.) Roxanna King DO [Med Staff - Active Staff] - (The Sports Athletic Trainer office will contact you with a visit.) Disposition Disposition (needs filled in before D/C Order can be placed): Home, Self Care 08/31/24 1253<Electronically signed by Lori Conrad MD>Lori Conrad MD CC: Dr. Roxanna King DO; Dr. Inocencio Frye MD; Dr. Johnny Zamora MD ~ Signed [facility] Work Phone: Discharge summary Author Lori Conrad [facility] Note Date/Time August 31, 2024 1:00p [facility] Medical Records Department [address] [place] [address] Discharge Summary 08/31/24 1254 MR#: [id number] Acct: [id number] Name: GALINDO JOHNSTON Rep #:[id number] : 1980 44 From: Lori Conrad MD PCP: Dr. Inocencio Frye MD Status:CHER VANEGAS Location: [place] [address] Providers Date of Admission: 08/30/24 Date of Discharge: 08/31/24 Primary Care Physician: Dr. Inocencio Frye MD Consultations 08/31/24 07:06 Consult: TOW MOTOR DRIVER Routine Consulting Provider: Roxanna King Reason for Consult: Heavy cycles EMERGENT Consult: No MD Notified: Yes Date Notified: 08/31/24 Time Notified: 07:08 Method of Notification: Text Reason For Visit: SEVERE ANEMIA Diagnosis Discharge Diagnosis (1) Menorrhagia, premenopausal: Status: Acute Code(s): N92.4 - Excessive bleeding in the premenopausal period (2) Iron deficiency anemia: Status: Chronic Code(s): D50.9 - Iron deficiency anemia, unspecified (3) Acute blood loss anemia: Status: Acute Code(s): D62 - Acute posthemorrhagic anemia Plan: DISCHARGE DIAGNOSES: #1. Premenopausal menorrhagia with associated acute on suspected chronic microcytic anemia/iron deficiency anemia with acute blood loss anemia #2. Anxiety #3. Former tobacco use #4. RLS Medications at Discharge Home Medications cholecalciferol (vitamin D3) 100 mcg (4,000 unit) capsule 100 mcg PO DAILY 08/30/24 escitalopram oxalate 20 mg tablet 20 mg PO DAILY 08/30/24 ropinirole 0.5 mg tablet 1 mg PO QHS 08/30/24 ferrous gluconate 324 mg (38 mg iron) tablet 324 mg PO DAILY 30 days #30 tabs 08/31/24 medroxyprogesterone 5 mg tablet 5 mg PO DAILY 30 days #30 tabs 08/31/24 Hospital Course Operations None Procedures - (Transvaginal ultrasound.) Summary of Care Provided Minutes Spent on Discharge: 35 Hospital Course: The patient is a 44 y/o F w/ PMHx: Chronic premenopausal menorrhagia, Anxiety, Former tobacco use, RLS who presents to the [facility] ED on 08/30/2024 secondary to recently performed outpatient labs per PCP with significantly decreased hemoglobin at 5.5 despite no marked significant symptoms with recent cycle completed 1 week previous noted to be as usual extremely heavy lasting at least 7 days more heavy over the first initial 2. Given significantly decreased hemoglobin which was confirmed in ED patient was administered 2 unit PRBC. Patient was admitted to PCU, iron studies were obtained and patient was initiated on IV iron transfusions eventually transition to oral supplementation at discharge. Transvaginal ultrasound was obtained with noted significant 6.5 cm x 6.7 cm x 6.5 cm subendometrial fibroid. shoe maker was consulted and discussed case at length the patient who in the past have been resistant to hormonal therapy but at this time given severity of presentation amenable to initiation of medroxyprogesterone with planned follow-up biopsy and likely future robotic hysterectomy. Patient clinically improved quicker than expected although likelysuspect this is secondary to her chronic ongoing blood loss anemia with menorrhagia. Given her clinically improved status quicker than expected and plan already in place with improved hemoglobin following transfusions patient was discharged to home in stable condition with plan continue oral iron supplementation, medroxyprogesterone 5 mg daily until cycle onset with then likely increase to 10 mg however would be arranged via Sports Athletic Trainer discussion in addition to plan follow-up which Sports Athletic Trainer office would arrange for planned biopsy andfuture robotic hysterectomy. DAY OF DISCHARGE PROGRESS NOTE: Subjective: Patient without acute event overnight per self and nursing report. Patient denies fever, chills, nausea, emesis, abdominal pain, chest pain or dyspnea. Patient agreeable to discharge to home following transvaginal ultrasound and plan of care with gynecology. Patient will be discharged with follow-up with primary care physician within 3-5 days in addition to plan to follow-up with gynecology more urgently in the office to assure set up of biopsyin future robotic hysterectomy with service noting that they would contact her with visit Objective: T98.8, heart rate 91, BP 113/61, respiratory rate 16, 99% on room air Physical Examination: General: awake, alert, oriented x 3 and cooperative, seated upright in the PCU bed, NAD. Skin: normal color, turgor, no icterus, cyanosis. HEENT: AT/NC, EOMI, PERRLA, MMM. Lungs: CTA bilaterally, moderate effort, mild decrease BL bases, no rales, ronchi or wheezing; Heart: Regular rate and rhythm; no gallop, rub audible. Abdomen: soft, NTTP, ND, normal BS. Extremities: no cyanosis, clubbing, or edema. Neurological: patient awake, alert, oriented x 3; cognitive function appears intact upon questioning,; pupils equally reactive to light and accomodation; cranial nerves II-XII grossly normal, moving all 4 extremities, strength appropriate. Psychiatric: affect appears mildly fatigued otherwise normal, no acute evidence of depressive or anxiety feelings. Assessment and Plan: Please see hospital summary above. Weight / BMI Weight Weight: 145 lb 8.081 oz Body Mass Index (BMI) 25.0 ABG / Lab / Microbiology Data 08/31/24 06:52 08/31/24 06:52 Laboratory: Laboratory Results - last 24 hr 08/30/24 14:47: WBC 5.0, RBC 3.45 L, Hgb 5.9 L*, Hct 23.1 L, MCV 67.0 L, MCH 17.1 L, MCHC 25.5 L, RDW Std Deviation 44.3 H, RDW Coeff of Aristides 18.8 H, Plt Count 204, MPV TNP, Immature Gran % (Auto) 0.400, Neut % (Auto) 61.1, Lymph % (Auto) 22.6, [place] % (Auto) 12.7 H, Eos % (Auto) 2.2, Baso % (Auto) 1.0, AbsoluteNeuts (auto) 3.0, Absolute Lymphs (auto) 1.12, Nucleated RBC % 0, Sodium 139, Potassium 3.8, Chloride 106, Carbon Dioxide 19.2 L, Anion Gap 13, BUN 8, Creatinine 0.66 L, Estim Creat Clear Calc 99.69, Est GFR (MDRD) Non-Af 109, BUN/Creatinine Ratio 12.8, Glucose 97, Calcium 9.2, Magnesium 2.2, Blood Type O POSITIVE, Antibody Screen NEGATIVE, Crossmatch See Detail 08/30/24 22:23: Hgb 7.7 L, Hct 26.6 L 08/31/24 06:52: WBC 4.1 L, RBC 3.75 L, Hgb 7.5 L, Hct 26.2 L, MCV 69.9 L, MCH 20.0 L, MCHC 28.6 L D, RDW Std Deviation 52.3 H, RDW Coeff of Aristides 20.9 H, Plt Count 162, Immature Gran % (Auto) 0.200, Neut % (Auto) 67.1, Lymph % (Auto) 16.0L, [place] % (Auto) 13.8 H, Eos % (Auto) 1.7, Baso % (Auto) 1.2 H, Absolute Neuts (auto) 2.8, Absolute Lymphs (auto) 0.66 L, Nucleated RBC % 0, Anisocytosis 2+, Sodium 139, Potassium 3.8, Chloride 108, Carbon Dioxide 20.5 L, Anion Gap 11, BUN 4, Creatinine 0.62 L, Estim Creat Clear Calc 106.00, Est GFR (MDRD) Non-Af 111, BUN/Creatinine Ratio 7.0 L, Glucose 99, Calcium 8.8, TSH 2.870, Free T4 1.10 Microbiology: Microbiology 08/30/24 15:46 Stool Stool Occult Blood (MOJGAN) - Final Radiography Diagnostic Testing: Radiology Impression Transvaginal US 08/31/24 07:09 IMPRESSION: Findings suggestive of a 6.5 cm 6.7 cm 6.5 cm subendometrial fibroid. Reading Location: [place] [address] D/C Instructions Discharge Diet: No restrictions May resume sexual activity in: - (Please defer sexual intercourse until cleared per Naphtha Washing System Operator at follow-up.) Weight Bearing Status: Weight bearing as tolerated Call your doctor if you observe: - (Recurrent heavy vaginal bleeding, lightheadedness, dizziness, shortness of breath, chest pain.) DC O2, CPAP, BIPAP Needs Home O2 Discharge instructions: No Meaningful Use Info Meaningful Use Meaningful Use Diagnoses (Choose all that apply): None applicable Ischemic Stroke Statin Dosing Therapy Reference: STATIN DOSE THERAPY REFERENCE: * Patients > 75 years receive moderate or high dose statin therapy. * Patients 75 years or YOUNGER should receive HIGH intensity statin dose unless contraindicated. You will be required to document reason for non-treatment if statin daily dose does not meet guidelines. HIGH DOSE STATIN THERAPY DAILY Atorvastatin > than or = to 40 mg Rosuvastatin > than or = to 20 mg Amlodipine + Atorvastatin > than or = to 2.5/40 mg Ezetimibe + Simvastatin 10/80 mg Simvastatin 80mg Discharge Plan Admission Admit Date/Time: 08/30/24 18:51 Primary Reason for Your Visit: Premenopausal Menorrhagia, ABLA, Fe deficiency anemia Attending Provider: Lori Conrad Primary Care Provider: Inocencio Frye Consulting Providers: Johnny Zamora; Roxanna King Instructions Additional Instructions / Restrictions: ADDITIONAL INSTRUCTIONS/PLAN OF CARE: --shoe maker would like you to continue medroxyprogesterone 5 mg tablet daily until you have your first cycle at which point they would like you to immediately callthem and likely they will increase this dose to 10 mg daily at that time. -- Please continue newly initiated oral iron supplementation which may be increased outpatient pending her toleration of this medication. It sometimes can cause constipation therefore [id number] stool softeners may be used aswell. --Please have follow-up complete blood count at follow-up with your primary carephysician as noted. --shoe maker office will contact you to arrange visit so that you also may have biopsy arranged as well as plan for upcoming robotic hysterectomy. --If at any point you have onset of heavy bleeding please immediately contact the shoe maker office. Discharge Orders/Prescriptions Prescriptions: New medroxyprogesterone 5 mg tablet 5 mg PO DAILY 30 Days Qty: 30 0RF Rx Instructions: Sports Athletic Trainer would like you to call them when start your cycle to possible increase. ferrous gluconate 324 mg (38 mg iron) tablet 324 mg PO DAILY 30 Days Qty: 30 0RF No Action ropinirole 0.5 mg tablet 1 mg PO QHS escitalopram oxalate 20 mg tablet 20 mg PO DAILY cholecalciferol (vitamin D3) 100 mcg (4,000 unit) capsule 100 mcg PO DAILY Referrals / Follow Up: Inocencio Frye MD [Primary Care Provider] - (Please follow-up in 3-5 days to review admission, have outpatient repeat complete blood count assessment.) Roxanna King DO [Med Staff - Active Staff] - (The Sports Athletic Trainer office will contact you with a visit.) Disposition Disposition (needs filled in before D/C Order can be placed): Home, Self Care Charges/Coding Visit Charges Inpatient E&M: 64269 Disch Hosp >30min 08/31/24 1300 <Electronically signed by Lori Conrad MD> Cosigner Signature (if applicable): CC: Dr. Lori Conrad MD; Dr. Inocencio Frye MD~ Signed [facility] Work Phone: Evaluation noteNo assessment information available [facility] Work Phone: Hospital Discharge instructionsAdditional Instructions ADDITIONAL INSTRUCTIONS/PLAN OF CARE: --shoe maker would like you to continue medroxyprogesterone 5 mg tablet daily until you have your first cycle at which point they would like you to immediately call them and likely they will increase this dose to 10 mg daily at that time. -- Please continue newly initiated oral iron supplementation which may be increased outpatient pending her toleration of this medication. It sometimes can cause constipation therefore [id number] stool softeners may be used as well. --Please have follow-up complete blood count at follow-up with your primary care physician as noted. --shoe maker office will contact you to arrange visit so that you also may have biopsy arranged as well as plan for upcoming robotic hysterectomy. --If at any point you have onset of heavy bleeding please immediately contact the shoe maker office. [facility]: [facility] Reason for referral (narrative)No reason for referral information availableWMercy Health [facility] Work Phone: Chief Complaint and Reason for Visit Chief Complaint SCREENING Chief Complaint Nontoxic single thyr oid nodule; SCREENING Chief Complaint NODULE Chief Complaint Admit Date SCREENING January 19, 2024 7:26am Chief Complaint Admit Date SEVERE ANEMIA August 30, 2024 6:51p m Chief Complaint Admit Date SEVERE ANEMIA August 30, 2024 6:51p m SEVERE ANEMIA August 30, 2024 6:52p m SEVERE ANEMIA August 31, 2024 8:02a m SEVERE ANEMIA August 31, 2024 12:54 pm Reason for Visit Admit Date Acute blood loss anemia August 30, 2024 6 :51pm Menorrhagia, premenopausal August 30 6:51pm Iron deficiency anemia August 30, 2024 6: 51pm Chief Complaint Admit Date SEVERE ANEMIA August 30, 2024 6:51p m SEVERE ANEMIA August 30, 2024 6:52p m SEVERE ANEMIA August 31, 2024 8:02a m SEVERE ANEMIA August 31, 2024 12:54 pm EMB and discuss Robotic Hysterectomy Aug 1:10pm Reason for Visit Admit Date Acute blood loss anemia August 30, 2024 6 :51pm Iron deficiency anemia August 30, 2024 6: 51pm Menorrhagia, premenopausal August 30 6:51pm Fibroid uterus September 09, 2024 1:10 pm Menorrhagia September 09, 2024 1:10 pm Chief Complaint Admit Date SEVERE ANEMIA August 30, 2024 6:51p m SEVERE ANEMIA August 30, 2024 6:52p m SEVERE ANEMIA August 31, 2024 8:02a m SEVERE ANEMIA August 31, 2024 12:54 pm EMB and discuss Robotic Hysterectomy Aug 1:10pm Leiomyoma of uterus, unspecified October 11, 2024 9:49am Chief Complaint Admit Date SEVERE ANEMIA August 30, 2024 6:51p m SEVERE ANEMIA August 30, 2024 6:52p m SEVERE ANEMIA August 31, 2024 8:02a m SEVERE ANEMIA August 31, 2024 12:54 pm EMB and discuss Robotic Hysterectomy Aug 1:10pm Leiomyoma of uterus, unspecified October 11, 2024 9:49am PREOP October 11, 2024 10 :11am TRH BS Cysto October 21, 2024 10 :02am Reason for Visit Admit Date Acute blood loss anemia August 30, 2024 6 :51pm Iron deficiency anemia August 30, 2024 6: 51pm Menorrhagia, premenopausal August 30 6:51pm Fibroid uterus September 09, 2024 1:10 pm Menorrhagia September 09, 2024 1:10 pm Fibroid uterus October 21, 2024 10 :02am Menorrhagia October 21, 2024 10 :02am Advance Directives No Advanced Directives Records Found Advance Directive Response Recorded Date/ Time Do you have a Healthcare Power of Silo Tender? No August 30, 2024 2:49pm Advance Directive Response Recorded Date/ Time Do you have a Healthcare Power of Silo Tender? No August 30, 2024 8:12pm Summary Purpose Family History No Family History Records Found Additional Source Comments Goals (unrecognized [...] Inocencio Frye MD Primary Care Provider Active Josette Elizabeth PHOTOCOPY OPERATOR-C Attending Provider Active Team Status: Inactive Member Role Status Dates Dr. Inocencio Frye MD Primary Care Provider Active Josette Elizabeth PHOTOCOPY OPERATOR-C Attending Provider, Referr ing Provider Active Team Status: Inactive Member Role Status Dates Dr. Inocencio Frye MD Primary Care Provider, Attend ing Provider Active Team Status: Inactive Member Role Status Dates Dr. Inocencio Frye MD Primary Care Provider Active Start: January 19, 2024 End: January 19, 2024 Angelica Olmos PHOTOCOPY OPERATOR, PHOTOCOPY OPERATOR-C Attending Provider Active S tart: January 19, 2024 End: January 19, 2024 Angelica Olmos PHOTOCOPY OPERATOR, PHOTOCOPY OPERATOR-C Referring Provider Active S tart: January 19, [...] April 28, 2024 End: April 28, 2024 Team Status: Active Member Role/Relationship Status Dates Dr. Inocencio Frye MD Primary Care Provider Active Team Status: Active Member Role/Relationship Status Dates Dr. Inocencio Frye MD Primary Care Provider Active Start: August 30, 2024 Dr. Inocencio Frye MD Attending Provider Active Start: August 30, 2024 Dr. Inocencio Frye MD Referring Provider Active Start: August 30, 2024 Team Status: Active Member Role/Relationship Status Dates Dr. Inocencio Frye MD Primary Care Provider Active Start: August 30, 2024 Dr. Joselito Maldonado DO Emergency Provider Activ e Start: August 30, 2024 Dr. Johnny Zamora MD Admit Provider Active Sta rt: August 30, 2024 Dr. Johnny Zamora MD Attending Provider Active Start: August 30, 2024 Team Status: Inactive Member Role/Relationship Status Dates Dr. Inocencio Frye MD Primary Care Provider Active Start: August 30, 2024 End: August 31, 2024 Dr. Joselito Maldonado , DO Emergency Provider Activ e Start: August 30, 2024 End: August 31, 2024 Dr. Johnny Zamora MD Admit Provider Active Sta rt: August 30, 2024 End: August 31, 2024 Dr. Johnny aZmora MD Other Provider Active Sta rt: August 30, 2024 End: August 31, 2024 Dr. Lori Conrad MD Attending Provider Active Start: August 30, 2024 End: August 31, 2024 Dr. Roxanna King , DO Other Provider Active Start: August 30, 2024 End: August 31, 2024 Team Status: Active Member Role/Relationship Status Dates Dr. Inocencio Frye MD Primary Care Provider Active Start: August 30, 2024 Dr. Joselito Maldonado DO Emergency Provider Activ e Start: August 30, 2024 Dr. Johnny Zamora MD Admit Provider Active Sta rt: August 30, 2024 Dr. Johnny Zamora MD Attending Provider Active Start: August 30, 2024 Dr. Johnny Zamora MD Other Provider Active Sta rt: August 30, 2024 Team Status: Active Member Role/Relationship Status Dates Dr. Inocencio Frye MD Primary Care Provider Active Start: August 31, 2024 Dr. Joselito Maldonado DO Emergency Provider Activ e Start: August 31, 2024 Dr. Johnny Zamora MD Admit Provider Active Sta rt: August 31, 2024 Dr. Johnny Zamora MD Other Provider Active Sta rt: August 31, 2024 Dr. Lori Conrad MD Other Provider Active St art: August 31, 2024 Dr. Roxanna King DO Attending Provider Activ e Start: August 31, 2024 Dr. Roxanna King DO Other Provider Active Start: August 31, 2024 Team Status: Active Member Role/Relationship Status Dates Dr. Inocencio Frye MD Primary Care Provider Active Start: August 31, 2024 Dr. Joselito Maldonado , Emergency Provider Activ e Start: August 31, 2024 Dr. Johnny Zamora MD Admit Provider Active Sta rt: August 31, 2024 Dr. Johnny Zamora MD Other Provider Active Sta rt: August 31, 2024 Dr. Lori Conrad MD Attending Provider Active Start: August 31, 2024 Dr. Lori Conrad MD Other Provider Active St art: August 31, 2024 Dr. Roxanna King DO Other Provider Active Start: August 31, 2024 Team Status: Inactive Member Role/Relationship Status Dates Dr. Inocencio Frye MD Primary Care Provider Active Start: August 30, 2024 End: August 30, 2024 Dr. Inocencio Frye MD Attending Provider Active Start: August 30, 2024 End: August 30, 2024 Dr. Inocencio Frye MD Referring Provider Active Start: August 30, 2024 End: August 30, 2024 Team Status: Active Member Role/Relationship Status Dates Dr. Inocencio Frye MD Primary Care Provider Active Start: September 06, 2024 Dr. Inocencio Frye MD Attending Provider Active Start: September 06, 2024 Dr. Inocencio Frye MD Referring Provider Active Start: September 06, 2024 Team Status: Inactive Member Role/Relationship Status Dates Dr. Inocencio Frye MD Primary Care Provider Active Start: September 09, 2024 End: September 09, 2024 Dr. Inocencio Frye MD Referring Provider Active Start: September 09, 2024 End: September 09, 2024 Dr. Roxanna King DO Attending Provider Activ e Start: September 09, 2024 End: September 09, 2024 Team Status: Inactive Member Role/Relationship Status Dates Dr. Inocencio Frye MD Primary Care Provider Active Start: September 06, 2024 End: September 06, 2024 Dr. Inocencio Frye MD Attending Provider Active Start: September 06, 2024 End: September 06, 2024 Dr. Inocencio Frye MD Referring Provider Active Start: September 06, 2024 End: September 06, 2024 Team Status: Active Member Role/Relationship Status Dates Dr. Inocencio Frye MD Primary Care Provider Active Start: September 09, 2024 Dr. Roxanna King DO Attending Provider Activ e Start: September 09, 2024 Team Status: Inactive Member Role/Relationship Status Dates Dr. Inocencio Frye MD Primary Care Provider Active Start: September 09, 2024 End: September 09, 2024 Dr. Roxanna King DO Attending Provider Activ e Start: September 09, 2024 End: September 09, 2024 Team Status: Inactive Member Role/Relationship Status Dates Dr. Inocencio Frye MD Primary Care Provider Active Start: October 11, 2024 End: October 11, 2024 Dr. Roxanna King DO Attending Provider Activ e Start: October 11, 2024 End: October 11, 2024 Dr. Roxanna King DO Referring Provider Activ e Start: October 11, 2024 End: October 11, 2024 Team Status: Active Member Role/Relationship Status Dates Dr. Inocencio Frye MD Primary Care Provider Active Start: October 11, 2024 Dr. Jacob Donaldson MD Attending Provider Active S tart: October 11, 2024 Dr. Roxanna King DO Referring Provider Activ e Start: October 11, 2024 Team Status: Inactive Member Role/Relationship Status Dates Dr. Inocencio Frye MD Primary Care Provider Active Start: October 21, 2024 End: October 21, 2024 Dr. Inocencio Frye MD Referring Provider Active Start: October 21, 2024 End: October 21, 2024 Dr. Roxanna King DO Attending Provider Activ e Start: October 21, 2024 End: October 21, 2024 Team Status: Active Member Role/Relationship Status Dates Dr. Inocencio Frye MD Primary Care Provider Active Start: October 21, 2024 Dr. Roxanna King DO Attending Provider Activ e Start: October 21, 2024 Dr. Roxanna King DO Referring Provider Activ e Start: October 21, 2024 Team Status: Inactive Member Role/Relationship Status Dates Dr. Inocencio Frye MD Primary Care Provider Active Start: October 21, 2024 End: October 21, 2024 Dr. Roxanna King DO Attending Provider Activ e Start: October 21, 2024 End: October 21, 2024 Dr. Roxanna King DO Referring Provider Activ e Start: October 21, 2024 End: October 21, 2024 INFORMATION SOURCE (unrecogn ized section and content) DATE CREATED AUTHOR 11/06/2024 [facility] FOR RECORDS PERTAINING TO PATIENTS WHO ARE [...] BE BASED ON THE PRIMARY CLINICAL RECORDS. [employer] provides no warranty or guarantee of the accuracy or completeness of information in this document.
[2024-11-06 17:22] LABS: Hematocrit 25.5 % (37-47); Hemoglobin 7.8 g/dL (12.0-15.0); Immature Granulocytes Count 0.040 X10^3/uL (0.0-0.0); Mean Corp Hgb Conc 30.6 g/dL (32-36); Mean Corpuscular Volume 91.1 fL (81-99); Mean Platelet Vol. 12.3 fl (6.2-12.0); NRBC Flagged by Analyzer 0 % (0-5); Platelet Count 284 K/mm3 (150-450); RBC Distribution Width CV 17.1 % (11.6-14.6); RBC Distribution Width SD 49.8 fl (35.1-43.9); Red Blood Count 2.80 M/mm3 (4.2-5.4); White Blood Count 7.4 K/mm3 (4.4-11.0)
[2024-11-06 17:46] LABS: Anion Gap 11 (5-15); BUN 14 mg/dL (4-19); BUN/Creat Ratio 19.0 RATIO (10-20); Calcium,Total 8.8 mg/dL (7.6-11.0); Carbon Dioxide 20.6 mmol/L (21.0-32.0); Chloride 108 mmol/L (98-108); Estimated Creatinine Clearance 83.15 ml/min (50-250); Glucose 114 mg/dL (70-99); Potassium 3.6 mmol/L (3.3-5.1)
[2024-11-06 17:51] LABS: Internal QC Validated? YES +Cl - CLEAR BKGD; Pregnancy, Serum, hCG Quali. NEGATIVE Negative; Record Kit Lot#, Serum Preg. 964736
[2024-11-06 18:00] VITALS: BP 123/68; PULSE 79; RESP 16; TEMP 36.8; O2SAT 100
== END 2024-11-06 18:03 | disposition home or self-care (01) ==
PROVIDERS: Emergency Provider Emergency Medicine; PCP Family Medicine; Visit Provider Emergency Medicine
DX: N92.0 Excessive and frequent menstruation with regular cycle (principal); D64.9 Anemia, unspecified; Z87.891 Personal history of nicotine dependence; N93.9 Abnormal uterine and vaginal bleeding, unspecified; D25.9 Leiomyoma of uterus, unspecified
CPT/HCPCS: 80048; 84703; 85025; 86850; 86900; 86901; 99284; A4216

== ENCOUNTER 2024-11-07 15:52 | Outpatient (CLI) | payer BC, SELFPAY ==
[2024-11-07] VITALS (8 sets, daily range): BP systolic 114–127; BP diastolic 67–93; PULSE 70–96; RESP 16–18; TEMP 36.7–37.3; O2SAT 100
--- NOTE | 2024-11-07 17:21 | NURSING ---
This RN answered a call on MS3 from [facility] [place] stating that Dr Mckinney had looked over pt's labs and Dr Mckinney would like 2 units of PRBCs given, rather than the previously ordered 1 unit. career coordinatorCHEMO Walker notified.
[2024-11-07] MEDS: 0.9% Saline Lock 10 ML Syringe IV ×2 (18:28→21:59)
[2024-11-07] MEDS: 0.9% Normal Saline (500mL Bag) 500 ML 15 ML IV (18:34)
== END 2024-11-07 23:50 | disposition home or self-care (01) ==
LOC: MEDOUTP 15:52 → MS3 15:53
PROVIDERS: PCP Family Medicine; Referring Provider Obstetrics & Gynecology; Visit Provider Obstetrics & Gynecology
DX: D64.9 Anemia, unspecified (principal)
CPT/HCPCS: 36415; 36430; 86850; 86900; 86901; P9016; A4216

== ENCOUNTER 2024-11-08 08:02 | Day surgery (SDC) | payer BC, SELFPAY ==
[2024-10-25 17:31] LABS: Hematocrit 34.8 % (37-47); Hemoglobin 10.6 g/dL (12.0-15.0); Immature Granulocytes Count 0.020 X10^3/uL (0.0-0.0); Mean Corp Hgb Conc 30.5 g/dL (32-36); Mean Corpuscular Volume 88.3 fL (81-99); Mean Platelet Vol. 11.8 fl (6.2-12.0); NRBC Flagged by Analyzer 0 % (0-5); Platelet Count 241 K/mm3 (150-450); RBC Distribution Width CV 19.4 % (11.6-14.6); RBC Distribution Width SD 50.4 fl (35.1-43.9); Red Blood Count 3.94 M/mm3 (4.2-5.4); White Blood Count 4.8 K/mm3 (4.4-11.0)
[2024-10-25 17:46] LABS: Prothrombin Time (Protime)PT. 13.3 SECONDS (11.7-14.9)
[2024-10-25 17:47] LABS: Partial Thromboplast Time 26.9 Seconds (24.1-36.2)
[2024-10-25 18:17] LABS: Magnesium 2.1 mg/dL (1.5-2.2)
[2024-11-07 15:06] LABS: Hematocrit 23.7 % (37-47); Hemoglobin 7.1 g/dL (12.0-15.0); Immature Granulocytes Count 0.010 X10^3/uL (0.0-0.0); Mean Corp Hgb Conc 30.0 g/dL (32-36); Mean Corpuscular Volume 92.6 fL (81-99); Mean Platelet Vol. 11.5 fl (6.2-12.0); NRBC Flagged by Analyzer 0 % (0-5); Platelet Count 262 K/mm3 (150-450); RBC Distribution Width CV 16.9 % (11.6-14.6); RBC Distribution Width SD 50.4 fl (35.1-43.9); Red Blood Count 2.56 M/mm3 (4.2-5.4); White Blood Count 3.9 K/mm3 (4.4-11.0)
[2024-11-08] VITALS (11 sets, daily range): BP systolic 98–144; BP diastolic 62–84; PULSE 83–101; RESP 13–18; TEMP 36.3–36.6; O2SAT 94–100; BMI 23.6
[2024-11-08] MEDS: Magnesium 1 GM over 15 mins IV (09:00)
[2024-11-08] MEDS: Lactated Ringers 1,000 ML 40 ML IV (09:05)
[2024-11-08] MEDS: Scopolamine 1mg/72hr Patch 1 PATCH TD (09:05)
[2024-11-08 09:06] LABS: Hematocrit 33.5 % (37-47); Hemoglobin 10.4 g/dL (12.0-15.0); Mean Corp Hgb Conc 31.0 g/dL (32-36); Mean Corpuscular Volume 87.9 fL (81-99); Mean Platelet Vol. 12.3 fl (6.2-12.0); POSITIVE COUNT YES; RBC Distribution Width CV 19.0 % (11.6-14.6); RBC Distribution Width SD 60.3 fl (35.1-43.9); Red Blood Count 3.81 M/mm3 (4.2-5.4); White Blood Count 4.3 K/mm3 (4.4-11.0)
--- NOTE | 2024-11-08 09:24 | PCM.HP.BLA ---
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 Is patient in pain?: No Allergies codeine Allergy (Verified 10/21/24 10:07) PT UNSURE OF REACTION Medications ?Medication ?Instructions ?Recorded ?Confirmed ?Type cholecalciferol (vitamin D3) 100 100 mcg PO DAILY vitamin 08/30/24 10/21/24 History mcg (4,000 unit) capsule escitalopram oxalate 20 mg tablet 20 mg PO DAILY mental health 08/30/24 10/21/24 History ropinirole 0.5 mg tablet 1 mg PO QHS restless legs 08/30/24 10/21/24 History ferrous gluconate 324 mg (38 mg 324 mg PO DAILY 30 days #30 tabs 08/31/24 10/21/24 Rx iron) tablet ascorbate calcium (vitamin C) 500 500 mg PO QDAY 09/09/24 10/21/24 History mg tablet levocetirizine 5 mg tablet 5 mg PO QDAY 09/09/24 10/21/24 History medroxyprogesterone 5 mg tablet 5 mg PO DAILY 30 days #30 tabs 09/09/24 10/21/24 Rx megestrol 40 mg tablet 40 mg PO QDAY #30 tabs 10/04/24 10/21/24 Rx Post menopausal: No Patient : No : No [facility] Medical History Menorrhagia, premenopausal Iron deficiency anemia Anxiety Former smoker Social History Smoking Status: Never smoker [facility] BS Cysto Details: GALINDO JOHNSTON, is a 44 y/o G2 P 2 (2 sections) who presented to [facility] for iron deficiency anemia. Back on August 31 she stated that she was feeling fine but her pcp called her after routine blood work was done at his office and told her to go to the ER. She was given 2 units of PRBCs and IV iron. I was consulted to discuss menorrhagia as being the cause of her anemia and she then continued her follow up in my office with an emb and discussion about treatment. EMB was benign as was her last pap. Her thyroid testing was also normal. Yesterday she returned with more heavy bleeding and her hg dropped again to 7.1. She was transfused a unit of blood and the repeat cbc today is pending. The plan is to proceed with a robotic hysterectomy to prevent further bleeding and transfusions. Measurements: Uterus: 12.1 cm x 8.5 cm x 8.2 cm with a volume of 442.86 mL. A nabothian cyst is seen. Findings suggestive of a 6.5 cm 6.7 cm 6.5 cm subendometrial fibroid. Endometrial Thickness: Not well visualized. Right Ovary: 3.5 cm x 3.6 cm x with a volume of 12.61 mL. Left Ovary: 3.3 cm x 2.9 cm x 2.4 cm with a volume of 12.01 mL. Uterus: Enlarged uterus. Findings suggestive of a 6.5 cm 6.7 cm 6.5 cm sub endometrial fibroid. Endometrium: Not well visualized as described. Right ovary: 1.8 cm 1.8 cm 1.2 cm resolving cyst. Left ovary: Normal size and echotexture. Other: No large pelvic mass identified. US/Transvaginal Non- IMPRESSION: Findings suggestive of a 6.5 cm 6.7 cm 6.5 cm subendometrial fibroid. ROS Const ROS Unobtainable: All systems reviewed & are unremarkable except as noted in H Resp Resp: Reports system reviewed and no additional complaints, except as documented; Denies cough GI GI: Reports as per HPI Psych Psych: Reports system reviewed and no additional complaints, except as documented Exam Const General: cooperative, healthy appearing, comfortable and no acute distress Resp Effort & Inspection: normal respiratory effort Skin General: no rashes or lesions noted Psych Appearance: grossly normal Speech and Movement: speech and movement normal Coding Level of Care Code Off vis,est,level 4 Diagnoses Fibroid uterus D25.9 Menorrhagia N92.0 Assessment and Plan Assessment and Plan (1) Fibroid uterus: Status: Acute (2) Menorrhagia: Status: Acute Orders: Orders CBC-Complete Blood Cnt No Diff Today D25.9 - Leiomyoma of uterus, unspecified, N92.0 - Excessive and frequent menstruation with regular cycle Plan After discussing the patient's diagnosis and treatment plan options, patient wishes to proceed with surgical management. I have discussed with the patient the risks, benefits, and alternatives of the procedure which include but are not limited to risks of anesthesia, bleeding, infection, possible damage to bowel, bladder, or surrounding vasculature which could lead to additional surgery to evaluate any complications. Patient agrees to procedure and wishes to proceed. ACOG/uptodate references given for additional information regarding procedure. plan is for a total robotic hysterectomy, cystoscopy.
--- NOTE | 2024-11-08 09:40 | DCINST_ITS ---
Discharge Instructions DC O2, CPAP, BIPAP needs Home O2 Discharge instructions: No Dressing / Incision Discharge Activity: May Shower May resume sexual activity in: 8 weeks Weight Bearing Status: Full weight bearing Lifting Restrictions: 10 pounds for 2 weeks Dressing / Incision Call your doctor if your incision/area has: Continuous Slow Oozing, Sudden I ncreased Bleeding, Increased Pain/ Swelling, Increased Redness and Foul Smelling Discharge Call your doctor if you observe: Fever of 101 or Higher, Using more than 1 pad per hour, Shortness of breath, Chest pain and Uncontrolled pain Suture Line Care: Avoid Pulling/Pushing and Avoid Pinching/Bending Remove Dressing in: 1 week (if present) Cleanse incision/area with: Soap & Water and Keep Dressing Clean & Dry Follow Up Care Please Follow Up With: Roxanna King DO When: Call to make an appointment with your doctor for a postop visit in 2 and 6 weeks Test Results: Test results from this visit will be discussed in further detail at your follow- up appointment, if applicable. Discharge Plan Admission Primary Reason for Your Visit: hysterectomy Attending Provider: Roxanna King Primary Care Provider: Inocencio Frye Instructions Print Language: Citizen Of [place] Discharge Orders/Prescriptions Prescriptions: New ibuprofen 800 mg tablet 800 mg PO Q8H PRN (Reason: pain) Qty: 30 0RF oxycodone-acetaminophen [Percocet] 5-325 mg tablet 1 tab PO Q4H PRN (Reason: pain) 7 Days Qty: 20 0RF Continued ascorbate calcium (vitamin C) 500 mg tablet 500 mg PO QDAY levocetirizine 5 mg tablet 5 mg PO QDAY escitalopram oxalate 20 mg tablet 20 mg PO DAILY cholecalciferol (vitamin D3) 100 mcg (4,000 unit) capsule 100 mcg PO DAILY ferrous gluconate 324 mg (38 mg iron) tablet 324 mg PO DAILY 30 Days Qty: 30 0RF ropinirole 1 mg tablet 1 mg PO QHS Discontinued megestrol 40 mg tablet 40 mg PO QDAY Qty: 30 0RF Referrals / Follow Up: Inocencio Frye MD [Primary Care Provider] - Disposition Disposition (needs filled in before D/C Order can be placed): Home, Self Care
[2024-11-08 09:44] LABS: Scan Indicated on CBC? Y/N YES- FLAGS NOTED
--- NOTE | 2024-11-08 09:49 | PCM.PRE.AN2 ---
ASA Classification* ASA Classification ASA Classification: 2 Assessment & Plan Anesthesia* Anesthesia Assessment Anesthesia Assessment: Discussed sedation and/or anesthesia options, risks, benefits, and alternatives with patient/parents/legal guardian/POA. Questions invited. The patient/parents/legal guardian/POA seems to understand and agrees to proceed with anesthesia plan. Reviewed the physical assessment, medical history, allergy history and patient home medications list prior to surgery/procedure/anesthetic and documented any changes. Performed airway and anesthesia risk assessments. Anesthesia Type Anesthesia Type: General History Source History Obtained from:: Patient and Chart Anesthesia Focused Assessment* Temperature: 97.3 F Pulse Rate: 86 Blood Pressure: 144/84 Respiratory Rate: 18 Pulse Ox: 100 Oxygen Delivery Method: Room Air Airway Assessment Mouth opens: >3 cm Mallampati Score: III Teeth Condition: Intact Neck Range of motion (ROM): Full ROM Labs Anesthesia Preop lab: CBC WBC 4.3 K/mm3 (4.4-11.0) L 11/08/24 08:45 11/08/24 RBC 3.81 M/mm3 (4.2-5.4) L 11/08/24 08:45 11/08/24 Hgb 10.4 g/dL (12.0-15.0) L 11/08/24 08:45 11/08/24 Hct 33.5 % (37-47) L 11/08/24 08:45 11/08/24 Plt Count TNP 11/08/24 08:45 11/08/24 CHEMISTRY Potassium 3.6 mmol/L (3.3-5.1) 11/06/24 16:40 11/06/24 Sodium 139 mmol/L (133-145) 11/06/24 16:40 11/06/24 Magnesium 2.1 mg/dL (1.5-2.2) 10/25/24 16:56 10/25/24 BUN 14 mg/dL (4-19) 11/06/24 16:40 11/06/24 Creatinine 0.73 mg/dL (0.70-1.20) 11/06/24 16:40 11/06/24 Glucose 114 mg/dL (70-99) H 11/06/24 16:40 11/06/24 POC Glucose 93 mg/dL (74-106) 11/08/24 09:00 11/08/24 TSH 2.870 uIU/mL (0.300-4.200) 08/31/24 06:52 08/31/24 COAG PT 13.3 SECONDS (11.7-14.9) 10/25/24 16:56 10/25/24 Tst Clinic Negative 09/09/24 13:24 09/09/24 Pre-Assessment Diagnosis/Proposed Procedure Planned Operative Procedure(s): ROBOTIC total hysterectomy, bilateral salpingectomy, cystoscopy. Anesthesia History Anesthesia History - well logging captain mud analysis: Anesthesia History - well logging captain mud analysis Hx Hospitalization Yes: August- [facility] 10/25/24 09:05 Any Problems With Anesthesia No 10/25/24 09:05 Cholinesterase deficiency No 10/25/24 09:05 You/Your Family Experience No 10/25/24 09:05 fever (hyperthermia) with Relationship Recent Exposure to Contagious No 11/08/24 09:00 Disease Does patient have nerve No 10/25/24 09:05 stimulator Patient instructed to have device shut off --Does patient have Pacemaker No 11/08/24 09:00 or ICD? When Was Last Pacemaker Check QUESTION #4 FULL TEXT: You/Your Family Experience fever (hyperthermia) with Anesthesia Last Oral Intake Last Oral intake: Last Oral Intake NPO since 06:30 11/08/24 09:00 Meds taken in AM with sips of Yes 11/08/24 09:00 water? Meds patient instructed to lexapro 11/08/24 09:00 take am of surgery Any additional information?: Yes NPO since: 06:30 (Patient took her preop Ensure at 6:30 a.m.) Meds taken in AM with sips of water?: Yes PONV PONV - well logging captain mud analysis: PONV - well logging captain mud analysis Female Yes 10/25/24 09:05 HX of Motion Sickness No 10/25/24 09:05 HX of N/V After Surgery No 10/25/24 09:05 Non-Smoker Yes 10/25/24 09:05 Duration of Surgery greater Yes 10/25/24 09:05 than 60 minutes Number of Risk Factors 3 10/25/24 09:05 PONV Score Moderate Risk 10/25/24 09:05 Height & Weight Height & Weight: Anesthesia: Height & Weight Height 5 ft 4 in 11/08/24 09:00 Weight: 62.6 kg 11/08/24 09:00 Body Mass Index (BMI) 23.6 11/08/24 09:00 Respiratory Assessment Respiratory Assessment - well logging captain mud analysis: Respiratory Tract Infection Hx - well logging captain mud analysis Hx Respiratory Tract Infection No 10/25/24 09:05 STOP Sleep Apnea STOP Sleep Apnea - well logging captain mud analysis: STOP Sleep Apnea - well logging captain mud analysis Hx Hypertension No 10/25/24 09:05 Hx Sleep Apnea No 10/25/24 09:05 CPAP BIPAP Do you snore loudly (louder No 10/25/24 09:05 than talking or can be heard Do you often feel tired/ No 10/25/24 09:05 fatigued/ sleepy during daytime? Has anyone observed you stop No 10/25/24 09:05 breathing during sleep? STOP Results Negative 10/25/24 09:05 QUESTION #5 FULL TEXT : Do you snore loudly (louder than talking or can be heard through closed doors)? 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 Specify any problems Hx of Preganancy in last 3 No 10/25/24 09:05 Months Nurse Filling Out Transfusion [email or web address] 10/25/24 09:05 & Questions: Date: 10/25/24 10/25/24 09:05 Time: 09:08 10/25/24 09:05 Patient unable to answer at this time (ie. confused, unrespo /Reproduction History /Reproductive History - well logging captain mud analysis: /Reproductive Hx- well logging captain mud analysis Hx Now Gestational Age (in weeks): EDC: Hx Hx Para Hx Section SAB No 11/06/24 16:07 Active Medications Active Medications: Current Medications Generic Name Dose Route Start Last Admin Trade Name Freq PRN Reason Stop Dose Admin Acetaminophen 1,000 mg 11/08/24 10:15 11/08/24 09:06 Acetaminophen 500 Mg Tablet PO 11/08/24 10:16 1,000 mg PREOP ONE Administration Celecoxib 400 mg 11/08/24 10:15 11/08/24 09:05 Celecoxib 200 Mg Capsule PO 11/08/24 10:16 400 mg PREOP ONE Administration Gabapentin 600 mg 11/08/24 10:15 11/08/24 09:05 Gabapentin 600 Mg Tablet PO 11/08/24 10:16 600 mg PREOP ONE Administration Lactated Ringer's 1,000 mls @ 40 mls/hr 11/08/24 10:15 11/08/24 09:05 IV 40 mls/hr .Q25H JO-ANN Administration Cefazolin Sodium 2 gm/ Sodium 110 mls @ 150 mls/hr 11/08/24 10:15 Chloride IV 11/08/24 10:58 INTRAOP ONE Lactated Ringer's 1,000 mls @ 70 mls/hr 11/08/24 10:15 IV .[id number] JO-ANN Magnesium Sulfate 1 gm/ 102 mls @ 408 mls/hr 11/08/24 10:15 Dextrose IV 11/08/24 10:29 PREOP ONE Insulin Human Lispro 0 unit 11/08/24 10:15 Insulin Lispro 100 Unit/Ml Insuln.Pen SC Q4H PRN PRN BG >/= 180, SEE PROTOCOL Protocol Ondansetron HCl 4 mg 11/08/24 10:15 Ondansetron 4 Mg/2 Ml Vial IV 11/08/24 10:16 INTRAOP ONE Phenazopyridine HCl 190 mg 11/08/24 10:15 11/08/24 09:06 Phenazopyridine 95 Mg Tablet PO 11/08/24 10:16 190 mg PREOP ONE Administration Scopolamine HBr 1 patch 11/08/24 10:15 11/08/24 09:05 Scopolamine 1mg/72hr Patch TD 11/08/24 10:16 1 mg PREOP ONE Administration PFSH Medical History delivery delivered Wears glasses Menorrhagia, premenopausal Iron deficiency anemia Anxiety Former smoker Home Medications ?Medication ?Instructions ?Recorded ?Last Taken ?Type cholecalciferol (vitamin D3) 100 100 mcg PO DAILY vitamin 08/30/24 Unknown History mcg (4,000 unit) capsule escitalopram oxalate 20 mg tablet 20 mg PO DAILY mental health 08/30/24 11/08/24 06:00 History ferrous gluconate 324 mg (38 mg 324 mg PO DAILY 30 days #30 tabs 08/31/24 Unknown Rx iron) tablet ascorbate calcium (vitamin C) 500 500 mg PO QDAY 09/09/24 Unknown History mg tablet levocetirizine 5 mg tablet 5 mg PO QDAY 09/09/24 Unknown History ropinirole 1 mg tablet 1 mg PO QHS 10/25/24 Unknown History ibuprofen 800 mg tablet 800 mg PO Q8H PRN pain #30 tabs 11/08/24 Unknown Rx oxycodone-acetaminophen 5 mg-325 1 tab PO Q4H PRN pain 7 days #20 11/08/24 Unknown Rx mg tablet (Percocet) tabs Allergy/AdvReac Type Severity Reaction Status Date / Time codeine Allergy PT UNSURE Verified 11/08/24 08:59 OF REACTION Surgical History (Updated 11/08/24 @ 09:[address] Kana Lopez MD) Previous section Tubal ligation status H/O wisdom tooth extraction Social History Smoking Status: Former smoker Review of Systems (Anesthesia) ROS Narrative System reviewed and no additional complaints, except as documented.
[2024-11-08] MEDS: Midazolam 2 MG/2 ML Syringe IV (10:12)
[2024-11-08] MEDS: Cefazolin 1 GM/5 ML Vial 2 GM IV (10:12)
--- NOTE | 2024-11-08 10:15 | UT_PTH ---
PATIENT: GALINDO JOHNSTON LOC: [facility] [place] U#:[id number] AGE/SX: 44/F ROOM: RE11/08/[address]: Dr. Roxanna King DO : 1980 BED: DIS: 11/08/2024 SPEC #: [id number] RECD: 11/08/24 11:47 STATUS: SENTHIL RIOS #: [id number] CALLY: 11/08/24 10:[address]: Roxanna King DEPT: SURGICAL PATHOLOGY RECD BY: Neil Butterfield ENTERED: 11/08/24 14:16 SP TYPE: UTERUS OTHR DR: Dr. Inocencio Frye MD Tissues: A - Uterus, NOS Procedures: Surgery Specimen Level V HEADER OPERATION: ERAS, laparoscopic total robotic hysterectomy bilateral salpingectomy, cystoscopy PRE-OP DIAGNOSIS: Fibroid uterus, menorrhagia TISSUE SUBMITTED: A- Uterus, cervix, bilateral fallopian tubes MICROSCOPIC DIAGNOSIS A. Uterus, uterine cervix, and bilateral fallopian tubes, laparoscopic hysterectomy and bilateral salpingectomies: - Squamous metaplasia and slight chronic cystic endocervicitis of the uterine cervix - Weakly proliferative endometrium with superficial adenomyosis of the underlying myometrium - Intramural leiomyoma with central hyaline degeneration in the fundic myometrium - Full thickness segments of two benign fallopian tubes - Endometriotic cysts in the uterine subserosa MICROSCOPIC DESCRIPTION Slides are reviewed. GROSS DESCRIPTION A. Received in formalin labeled with the patient's name and date of . Designated as, uterus and cervix and bilateral fallopian tubes, is a 355 g markedly disrupted ackerman-pink uterus with detached cervix and fallopian tubes the uterus measures 13.2 x 10.5 x 7.3 cm. There are possible, focal serosal adhesions. The uterus is unable to be oriented or inked. The detached and opened cervix is ackerman-pink, focally erythematous and measures 3.3 x 2.3 cm; when reapproximated, the os measures approximately 1.0 cm and is expelling mucoid material. Mucoid containing cyst are present. The intact endometrial canal measures approximately 4.7 x 4.5 cm and is lined by pale ackerman granular endometrium measuring up to 0.3 cm; the endometrial canal is distorted by a 7.4 cm intramural leiomyoma. The myometrium is ackerman with pale ackerman-yellow areas of edema and measures up to 3.0 cm thick. The detached, pink-red fimbriated fallopian tubes are undesignated and measure 3.0 x 0.7 cm and 2.5 x 1.0 cm. Brass Burnisher sections are submitted as follows: A1-A2: CervixA3: Intact endometrium and myometriumA4: Distorted endometrium and myometriumA5-A6: LeiomyomaA7: Longer fallopian tubeA8: [place] fallopian tubeA9: Possible serosal adhesions [place] 11/08/2024 CPT:83155
[2024-11-08] MEDS: Lidocaine 1% (5 ml sdv) 5 ML Vial IV (10:19)
[2024-11-08] MEDS: fentaNYL 100 MCG/2 ML Ampul IV (10:50)
--- NOTE | 2024-11-08 12:09 | OP.PCM_ITS ---
Problems Associated Problem List Diagnoses (1) Anemia: (2) Fibroid uterus: (3) Menorrhagia: Multi Select Codes Urinary/Genital Urinary/Genital CPT Codes: 43377 Cystoscopy and 09614 TLH+BS/O >250gr uterus Operative Report (Standard) Operative Information Date of Procedure: 11/08/24 Pre-Operative Diagnosis: menorrhagia, acute blood loss anemia, fibroid uterus Post-Operative Diagnosis: menorrhagia, acute blood loss anemia, fibroid uterus Surgery/Procedure Performed: total robotic hysterectomy, bilateral salpingectomy, cystoscopy jig and fixture maker: Yes Tractor Sweeper Operator: Anna Aldrich Tasks completed by assistant manager: Closing, Trocar and Other (suction irrigation ) Additional speech pathologist assistant?: No Type of Anesthesia: General RN Documented Start/Stop Times: Operation Date: 11/08/24 10:15 Case Time Into Pre-Op 11/08/24 08:05 Out of Pre-Op 11/08/24 10:08 Anesthesia Start 11/08/24 10:12 Into Room 11/08/24 10:12 Procedure Start 11/08/24 10:40 Procedure Start Time: 10:40 Procedure Stop Time: 12:10 Select all DRAINS/GRAFTS/IMPLANTS that apply: None Special Medications: none Estimated Blood Loss: 50cc Fluids Replaced: 1100 Specimen collected: Yes Description of specimen(s) removed: uterus, cervix, fibroid, bilateral fallopian tube segments Description of surgery: Findings: 16 cm uterus with large fibroid, normal appearing ovaries and tubes. On exploration of the abdominal cavity the uterus, adnexa, bowel, and liver were found to be normal. Cystoscopy showed no evidence of leaking at approximately 250 cc of normal saline, positive ureteral orifices and jet flow are seen and no suture material was appreciated in the bladder. Specimens removed: Uterus and cervix, Bilateral tubes Reason for surgery: This is a -year-old G2, P2 who presented to my office with history of heavy vaginal bleeding, requiring 2 separate blood transfusions since August. Ultrasound shows an enlarged uterus with a 6 cm fibroid. The planned procedure is for a robotic hysterectomy the risks benefits and alternatives were discussed with the patient the patient had a clear understanding of the procedure and a consent form was signed. Procedure: The patient was placed in the dorsal low lithotomy position and prepped and draped in the normal sterile fashion both abdominally and in the perineum. Her legs were placed in stirrups a Souza catheter was inserted into the urethra without difficulty. A weighted speculum was placed in the vagina and a single- tooth tenaculum was used to grasp the anterior lip of the cervix. An advincRadiance uterine manipulator was inserted through the cervix without complication and the uterus sounded to 16 cm.. It was then tied into place at the 2 and 10:00 locations on the cervix. Gloves were changed and attention was turned towards the abdomen. Approximately 23 cm above the pubic symphysis in the midline, and after Marcaine injection, a 8 mm incision was made. An 8 mm trocar was inserted through the laparoscope, then inserted into the abdomen under direct visualization using the laparoscope. Good abdominal placement was noted and no complications were appreciated. An air seal device was utilized to create pneumoperitoneum. At 12 cm lateral to the midline on the left and right sides 8 mm accessory ports were placed. Next a left upper quadrant 8 mm speech pathologist assistant port site was placed. The patient was placed in steep Trendelenburg position. The robot was docked. The hysterectomy was initiated first by taking down the round ligament on each side using the vessel sealer device. The fallopian tube segments were removed with the Vessel sealer and passed off through the abdominal port sites. The broad ligament was then and taken down using the vessel sealer device. Next the bladder flap was taken down without complication. This was done using monopolar cautery to the level of the cervical vaginal junction. After the bladder flap was created, uterine vessels were then isolated and cauterized using the vessel sealer device and EndoShears. At this point the uterine vessels were taken down further starting from the ascending branch, dissecting along the edges of the cervix to the level of the cervical vaginal junction with hemostasis appreciated. The cervical vaginal junction was then using monopolar cautery in a circumferential pattern across the superior aspect of the cervix. The specimen was delivered through the vagina and sent to pathology. The remaining vaginal cuff was then closed using a V lock suture. This was performed in a running technique. Excellent hemostasis was obtained and good closure was noted. Irrigation was then performed. All operative sites were noted to be hemostatic. A cystoscopy was performed with a 70 degree cystoscope through the urethra into the bladder without complication. The bladder was instilled with approximately 250 cc of normal saline. Intraoperative images were made. Ureteral orifices and jets were identified. No suture material was appreciated in the bladder. The bladder was then drained and cystoscope was removed. The abdominal cavity was again examined. All operative sites were noted to be hemostatic. The trochars were removed under direct visualization without complication and pneumoperitoneum was reduced. At this point the skin was then closed using 4-0 Monocryl subcuticular stitch and sealed with surgical glue. The patient tolerated the procedure well sponge lap and needle counts were correct x2 the patient was taken to the recovery room in stable condition. Surgical Findings: enlarged fibroid uterus Complications Complications: No Admit VTE Documentation VTE Present on Admission: No VTE Mechan Device Prophylaxis: SCD's VTE Pharm Prophylaxis ordered?: No Reason prophylaxis not ordered: Treatment Not Indicated
--- NOTE | 2024-11-08 12:26 | PCM.POST.ANE ---
Anesthesia: Postop Eval I Current Vital Signs Temperature: 97.7 F Pulse Rate: 90 Blood Pressure: 112/80 Respiratory Rate: 14 Pulse Ox: 97 Assessment Airway patent: Yes Spontaneous unlabored respirations: Yes nausea: No Vomiting: No Anesthesia Complication: No Fluid Hydration Crystalloid volume administer (ml): 1,400 Total IV fluid infused: 1,400 Progress Note Anesthesia document: Postop Eval 1 completed: Yes
--- NOTE | 2024-11-08 15:13 | POSTOPAN2_ITS ---
Anesthesia Postop Eval I Sum Postop Eval Completion status Anesthesia document: Postop Eval 1 completed: Yes Anesthesia Postop Eval I Summary Anesthesia Postop Eval I Summary: Anesthesia Postop Eval I: Assessment Summary Airway patent Yes 11/08/24 12:26 [email or web address] Spontaneous unlabored Yes 11/08/24 12:26 [email or web address] respirations Mental status nausea No 11/08/24 12:26 [email or web address] [email or web address] Vomiting No 11/08/24 12:26 [email or web address] Anesthesia Postop Eval I: Fluid Summary Crystalloid volume administer 1,400 11/08/24 12:26 [email or web address] (ml) Colloids volume administered ( ml) Blood Product volume administered (ml) Total IV fluid infused 1,400 11/08/24 12:26 [email or web address] Anesthesia Postop Eval I: Summary Notes Anesthesia Complication No 11/08/24 12:26 [email or web address] Anesthesia Complication Comment: Post-operative progress note Anesthesia: Postop Eval II Evaluation Mental status: Awake and Calm Pain Level: 2 nausea: No Vomiting: No Complications Anesthesia Complication: No
--- NOTE | 2024-11-08 15:13 | PCM.POSTANE2 ---
Anesthesia Postop Eval I Sum Postop Eval Completion status Anesthesia document: Postop Eval 1 completed: Yes Anesthesia Postop Eval I Summary Anesthesia Postop Eval I Summary: Anesthesia Postop Eval I: Assessment Summary Airway patent Yes 11/08/24 12:26 [email or web address] Spontaneous unlabored Yes 11/08/24 12:26 [email or web address] respirations Mental status nausea No 11/08/24 12:26 [email or web address] Vomiting No 11/08/24 12:26 [email or web address] Anesthesia Postop Eval I: Fluid Summary Crystalloid volume administer 1,400 11/08/24 12:26 [email or web address] (ml) Colloids volume administered ( ml) Blood Product volume administered (ml) Total IV fluid infused 1,400 11/08/24 12:26 [email or web address] Anesthesia Postop Eval I: Summary Notes Anesthesia Complication No 11/08/24 12:26 [email or web address] Anesthesia Complication Comment: Post-operative progress note Anesthesia: Postop Eval II Evaluation Mental status: Awake and Calm Pain Level: 2 nausea: No Vomiting: No Complications Anesthesia Complication: No
== END 2024-11-08 16:18 | disposition home or self-care (01) ==
LOC: SDC 08:02 → AC 08:04
PROVIDERS: Anesthesiology; PCP Family Medicine; Referring Provider Obstetrics & Gynecology; Visit Provider Obstetrics & Gynecology
PROC: 0UT90ZZ Resection of Uterus, Open Approach (ICD-10-PCS; CPT 58573; principal; 2024-11-08 09:55)
DX: D25.1 Intramural leiomyoma of uterus (principal); D62 Acute posthemorrhagic anemia; D50.9 Iron deficiency anemia, unspecified; N92.0 Excessive and frequent menstruation with regular cycle; N87.9 Dysplasia of cervix uteri, unspecified; N72 Inflammatory disease of cervix uteri; N80.03 Adenomyosis of the uterus; Z87.891 Personal history of nicotine dependence; Z79.01 Long term (current) use of anticoagulants; Z79.899 Other long term (current) drug therapy
CPT/HCPCS: 58573; S2900; 00840; 36415; 36430; 82962; 83735; 85025; 85027; 85610; 85730; 86850; 86900; 86901; 88307; P9016; J2405; J3475

== ENCOUNTER → 2024-11-16 | Outpatient (CLI) | payer BC, SELFPAY ==
[2024-11-16 12:30] LABS: Hematocrit 35.6 % (37-47); Hemoglobin 10.9 g/dL (12.0-15.0); Immature Granulocytes Count 0.010 X10^3/uL (0.0-0.0); Mean Corp Hgb Conc 30.6 g/dL (32-36); Mean Corpuscular Volume 89.9 fL (81-99); Mean Platelet Vol. 12.2 fl (6.2-12.0); NRBC Flagged by Analyzer 0 % (0-5); Platelet Count 236 K/mm3 (150-450); RBC Distribution Width CV 15.2 % (11.6-14.6); RBC Distribution Width SD 48.3 fl (35.1-43.9); Red Blood Count 3.96 M/mm3 (4.2-5.4); White Blood Count 3.9 K/mm3 (4.4-11.0)
[2024-11-16 12:47] LABS: Ferritin 43 ng/mL (22-378); Iron 211 ug/dL (50-170); Iron Binding Capacity,Total 384 ug/dL (250-450); Iron Binding Capacity,Unsat 173 ug/dL (228-428)
== END | disposition home or self-care (01) ==
LOC: MFPLAB 10:46
PROVIDERS: PCP Family Medicine; Visit Provider Family Medicine
DX: D50.9 Iron deficiency anemia, unspecified (principal)
CPT/HCPCS: 36415; 82728; 83540; 83550; 85025

== ENCOUNTER → 2024-12-19 | Outpatient (CLI) | payer BC, SELFPAY ==
[2024-12-19 15:04] LABS: Hematocrit 37.3 % (37-47); Hemoglobin 11.9 g/dL (12.0-15.0); Immature Granulocytes Count 0.010 X10^3/uL (0.0-0.0); Mean Corp Hgb Conc 31.9 g/dL (32-36); Mean Corpuscular Volume 86.5 fL (81-99); Mean Platelet Vol. 11.6 fl (6.2-12.0); NRBC Flagged by Analyzer 0 % (0-5); Platelet Count 220 K/mm3 (150-450); RBC Distribution Width CV 13.7 % (11.6-14.6); RBC Distribution Width SD 43.8 fl (35.1-43.9); Red Blood Count 4.31 M/mm3 (4.2-5.4); White Blood Count 3.9 K/mm3 (4.4-11.0)
[2024-12-19 15:56] LABS: Ferritin 42 ng/mL (22-378); Iron 62 ug/dL (50-170); Iron Binding Capacity,Total 338 ug/dL (250-450); Iron Binding Capacity,Unsat 276 ug/dL (228-428)
== END | disposition home or self-care (01) ==
LOC: MTLAB 11:33
PROVIDERS: PCP Family Medicine; Referring Provider Family Medicine; Visit Provider Family Medicine
DX: D50.9 Iron deficiency anemia, unspecified (principal)
CPT/HCPCS: 36415; 82728; 83540; 83550; 85025

== ENCOUNTER → 2025-01-20 | Outpatient (CLI) | payer BC, SELFPAY ==
--- NOTE | 2025-01-20 08:15 | BI_ITS ---
EXAM: SCRN MAMM (CAD)W/ADITYA BILAT DATE: 01/20/2025 CLINICAL HISTORY: F, Age 44 y/o , SCREENING FOR BREAST CANCER TECHNIQUE: Procedure Code: [id number] Modality: MG Procedure: SCRN MAMM (CAD)W/ADITYA BILAT COMPARISON: Prior exam(s) dated 01/19/2024, 12/23/2022, and 12/11/2021. FINDINGS: TISSUE DENSITY: The breasts are extremely dense, which lowers the sensitivity of mammography. Bilateral Breast Mammographic Findings: No suspicious masses, suspicious clustered microcalcifications, architectural distortion or secondary sign of malignancy is identified in either breast. Benign-appearing round microcalcifications are seen in both breasts. BI/SCRN MAMM (CAD)W/ADITYA BILAT IMPRESSION: Benign screening mammogram OVERALL FINAL ASSESSMENT BI-RADS 2: BENIGN RECOMMENDATION: Routine annual follow-up in 1 Year Additional Recommendation none A letter with findings and recommendations will be mailed to the patient. Reading Location: [id number]
--- OUTSIDE RECORDS SUMMARY | 2025-01-20 08:26 | XMS RPT_ITS | CCD ---
Author Organization [facility] Care Team Providers Care Accountant Auditor Name Role Phone Melva KLEIN, Dr. Inocencio Lopez Primary Care Provider Amarilis COMPUTER INFORMATION SCIENCE PROFESSOR-C, Angelica Attending Provider Amarilis COMPUTER INFORMATION SCIENCE PROFESSOR-C, Angelica Referring Provider Melva KLEIN, Dr. Inocencio Lopez Attending Provider Dr. Inocencio Frye MD Referring Provider Dr. Inocencio Frye MD Primary Care Provider [phone] Melva KLEIN, Dr. Inocencio Lopez Attending Provider Dr. Inocencio Frye MD Referring Provider Dr. Joselito Maldonado DO Emergency Provider Noah KLEIN, Dr. Turner Admit Provider Noah KLEIN, Dr. Turner Attending Provider Noah KLEIN, Dr. Turner Other Provider Anamaria KLEIN, Dr. Lori Beard Attending Provider Dr. Roxanna King DO Other Provider [phone] Noah KLEIN, Dr. Turner Attending Provider Anamaria KLEIN, Dr. Lori Beard Other Provider Dr. Roxanna King DO Attending Provider Dr. Roxanna King DO Referring Provider Anika KLEIN, Dr. James Attending Provider [phone] Barney KLEIN, Dr. Grier Emergency Provider [phone] Zoran KLEIN, Dr. Schaefer Attending Provider Zoran KLEIN, Dr. Schaefer Referring Provider [phone] Melva KLEIN, Dr. Inocencio Lopez Primary Care Physician Melva KLEIN, Dr. Inocencio Lopez Attending Physician Erica CHEEK, Dr. [facility] Noah KLEIN, Dr. Turner Admitting Physician Noah KLEIN, Dr. Turner Nurse Practitioner Anamaria KLEIN, Dr. Lori Beard Attending Physician Jasmin Thurman DO, Dr. Mcknight Nurse Practitioner Noah KLEIN, Dr. Turner Attending Physician Anamaria KLEIN, Dr. Lori Beard Nurse Practitioner Jasmin Thurman DO, Dr. Mcknight Attending Physician Anika KLEIN, Dr. James Attending Physician Barney KLEIN, Dr. Grier Attending Physician Barney KLEIN, Dr. Grier Emergency Department Physici an Zoran KLEIN, Dr. Schaefer Attending Physician Amarilis COMPUTER INFORMATION SCIENCE PROFESSOR, Angelica Attending Unavailable Amarilis COMPUTER INFORMATION SCIENCE PROFESSOR, Angelica Referring Unavailable Inocencio Frye Primary Care Unavailable Inocencio Frye Attending Unavailable Inocencio Frye Referring Unavailable Inocencio Frye Primary Care Unavailable Roxanna King Attending Unavailabl e Inocencio Frye Referring Unavailable Inocencio Frye Primary Care Unavailable Roxanna King Attending Unavailrenan e Roxanna King Referring Unavailabl e Inocencio Frye Primary Care Unavailable Inocencio Frye Primary Care Unavailable Marvel Corley Attending Unavailable Roxanna King Attending Unavailrenan e Roxanna King Referring Unavailabl e Inocencio Frye Primary Care Unavailable Inocencio Frye Attending Unavailable Inocencio Frye E Primary Care Unavailable Roxanna King Attending Unavailabl e Schinner, Inocencio E Referring Unavailable Schinner, Inocencio E Primary Care Unavailable Vande VelRoxanna restrepo Attending Unavailabl e Schinner, Inocencio E Primary Care Unavailable Schinner, Inocencio E Referring Unavailable Vande VeldeRoxanna Referring Unavailabl e Schinner, Inocencio E Primary Care Unavailable Jacob Donaldson Attending Unavailable Roxanna King Consulting Unavailabl e Vande VeldeRoxanna Referring Unavailabl e Vande VelRoxanna restrepo Attending Unavailabl e Schinner, Inocencio E Primary Care Unavailable Schinner, Inocencio E Primary Care Unavailable Olive Mckinney Attending Unavailable Olive Mckinney Referring Unavailable Vande Roxanna Thurman Attending Unavailabl e Vande VeldeRoxanna Referring Unavailabl e Schinner, Inocencio E Primary Care Unavailable SchinnerInocencio E Attending Unavailable Schinner, Inocencio E Referring Unavailable Schinner, Inocencio E Primary Care Unavailable Lori Conard Attending Unavailable Johnny Zamora Consulting Unavailable Johnny Zamora Admitting Unavailable Schinner, Inocencio E Primary Care Unavailable Roxanna King Consulting Unavailabl e Vande Roxanna Thurman Attending Unavailabl e [place] Roxanna Thurman Referring Unavailabl e Schhumphrey, Inocencio E Primary Care Unavailable SchInocencio yin E Attending Unavailable Schhumphrey, Inocencio E Primary Care Unavailable SchInocencio yin E Referring Unavailable Vande Roxanna Thurman Attending Unavailabl e Schhumphrey, Inocencio E Primary Care Unavailable Lori Conrad Attending Unavailable Johnny Zamora Admitting Unavailable Schhumphrey, Inocencio E Primary Care Unavailable Johnny Zamora Consulting Unavailable Roxanna King Consulting Unavailabl e Lori Conrad Consulting Unavailable Schinner, Inocencio E Referring Unavailable SchinInocencio ferrara E Attending Unavailable Schinjosias, Inocencio E Primary Care Unavailable Roxanna King Attending Unavailabl e Vande Roxanna Thurman Attending Unavailabl e Schinner, Inocencio E Primary Care Unavailable Schinjosias, Inocencio E Referring Unavailable Johnny Zamora Attending Unavailable Allergies Allergy Classification Reported Allergen(s) Allergy Type Date of Onset Reaction(s) Facility (14 sources) Codeine Drug Allergy 5 PT UNSURE OF REACTION [facility] (1 source) Codeine Drug Allergy 5 [facility] Repository Medications Current Medications Medication Drug Class(es) Dates Sig (Normalized) Sig (Original) calcium ascorbate 500 mg oral tablet (11 sources) Start: 09-09-2024 take 1 tablet by mouth once daily Ascorbate Calcium (Vitamin C) 500 mg tablet Active 500 mg PO daily September 09, 2024 12:00am Complies with drug therapy Cholecalciferol (14 sources) Vitamin D Start: 08-30-2024 take 1 capsule by mouth once daily Cholecalciferol (Vitamin D3) 100 mcg (4,000 unit) capsule Active 100 ug PO DAILY August 30, 2024 12:00am vitamin Complies with drug therapy Start: 08-30-2024 take 1 capsule by mo uth once daily Cholecalciferol (Vitamin D3) 100 mcg (4,000 unit) capsule Active 100 ug PO DAILY August 30, 2024 12:00am vitamin Start: 08-30-2024 take 1 capsule by mo uth once daily Cholecalciferol (Vitamin D3) 100 mcg (4,000 unit) capsule Active 100 ug PO DAILY August 30, 2024 12:00am escitalopram 20 mg oral tablet (14 sources) Serotonin Reuptake Inhibitor Start: 08-30-2024 take 1 tablet by mouth once daily Escitalopram Oxalate 20 mg tablet Active 20 mg PO DAILY August 30, 2024 12:00am mental health Complies with drug therapy ferrous gluconate 324 mg oral tablet (13 sources) Start: 08-31-2024 take 1 tablet by mouth once daily Ferrous Gluconate 324 mg (38 mg iron) tablet Active 324 mg PO DAILY 30 30 0 August 31, 2024 12:00am Complies with drug therapy levocetirizine dihydrochloride 5 mg oral tablet (11 sources) Histamine-1 Receptor Antagonist Start: 09-09-2024 take 1 tablet by mouth once daily Levocetirizine 5 mg tablet Active 5 mg PO daily September 09, 2024 12:00am Complies with drug therapy Completed/Discontinued Medications Medication Drug Class(es) Dates Sig (Normalized) Sig (Original) acetaminophen 325 mg / oxyCODONE hydrochloride 5 mg oral tablet (3 sources) Opioid Agonist Start: 5 End: 5 Oxycodone-Acetaminophe n (Percocet) 5-325 mg tablet Discontinued 1 {tbl} PO Q4H as needed for pain 20 7 0 November 08, 2024 November 21, 2024 10:59am Status post hysterectomy Acquired absence of both cervix and uterus ibuprofen 800 mg oral tablet (3 sources) Nonsteroidal Anti-inflammator y Drug Start: End: 5 take 1 tablet by mouth every eight hours as needed for pain Ibuprofen 800 mg tablet Discontinued 800 mg PO Q8H as needed for pain 30 0 November 08, 2024 12:00am November 21, 2024 10:58am medroxyPROGESTERone acetate 5 mg oral tablet (20 sources) Progestin Start: 5 End: 5 take 1 tablet by mouth once daily Medroxyprogesterone 5 mg tablet Discontinued 5 mg PO DAILY 30 30 3 September 09, 2024 1:46pm October 25, 2024 9:04am megestrol acetate 40 mg oral tablet (18 sources) Progestin Start: End: 5 take 1 tablet by mouth once daily Megestrol 40 mg tablet Discontinued 40 mg PO daily 30 0 October 04, 2024 2:15pm November 08, 2024 9:41am rOPINIRole 1 mg oral tablet (20 sources) Nonergot Dopamine Agonist Start: End: take 1 tablet by mouth at bedtime Ropinirole 1 mg tablet Discontinued 1 mg PO AT BEDTIME October 25, 2024 12:00am November 21, 2024 10:59am Start: 08-30-2024 End: 10-25-2024 take 2 tablets by mouth at bedtime Ropinirole 0.5 mg tablet Discontinued 1 mg PO AT BEDTIME August 30, 2024 12:00am October 25, 2024 9:04am restless legs Problems Active Problems Problem Classification Problem Date Documented Date Episodic/Chronic Benign neoplasm of uterus (20 sources) Uterine leiomyoma; Translations: [Leiomyoma of uterus, unspecified] Onset: 11-29-2024 09-09-2024 Episodic Deficiency and other anemia (20 sources) Iron deficiency anemia; Translations: [Iron deficiency anemia, unspecified] 08-30-2024 Episodic Deficiency and other anemia (8 sources) Anemia; Translations: [Anemia, unspecified] 11-06-2024 Episodic Deficiency and other anemia (2 sources) Iron deficiency anemia, unspecified; Translations: [Iron deficiency anemia, unspecified] Onset: 09-23-2024 Episodic Deficiency and other anemia (1 source) Anemia, unspecified; Translations: [Anemia, unspecified] Onset: 11-11-2024 Episodic Malaise and fatigue (1 source) Weakness; Translations: [Weakness] Onset: 11-11-2024 Episodic Menopausal disorders (20 sources) Menorrhagia; Translations: [Excessive bleeding in the premenopausal period] Onset: 09-16-2024 08-31-2024 Chronic Menstrual disorders (2 sources) Excessive and frequent menstruation with regular cycle; Translations: [Excessive and frequent menstruation with regular cycle] Onset: 10-21-2024 Chronic Nutritional deficiencies (1 source) Vitamin D deficiency, unspecified; Translations: [Vitamin D deficiency, unspecified] Onset: 05-19-2024 Chronic Other screening for suspected conditions (not mental disorders or infectious disease) (2 sources) Encounter for screening mammogram for malignant neoplasm of breast; Translations: [Encounter for screening mammogram for malignant neoplasm of breast] Onset: 02-16-2024 Episodic Residual codes; unclassified (1 source) Acquired absence of both cervix and uterus; Translations: [Acquired absence of both cervix and uterus] Onset: 12-19-2024 Episodic Unclassified (11 sources) Please follow-up in 3-5 days to review admission, have outpatient repeat complete blood count assessment. Unclassified (13 sources) The St[facility] office will contact you with a visit. Past or Other Problems Problem Classification Problem Date Documented Date Episodic/Chronic Acute posthemorrhagic anemia (20 sources) Acute posthemorrhagic anemia; Translations: [Acute posthemorrhagic anemia] Onset: 09-23-2024 08-30-2024 Episodic Nutritional deficiencies (1 source) Iron deficiency; Translations: [Iron deficiency] Onset: 09-05-2024 Episodic Results Test Name Value Interpretation Reference Range Facility CBC W/Diff, Automatedon 11-24 Absolute Lymph 0.91 X10 3/uL Normal 0.83-4.51 [facility] Comment on above: Performed By: #### L 100.0100, L503.6073, L503.6583 #### [facility] [address] [place], [address] Absolute Neut 2.4 X10 3/uL Normal 2.0-7.7 [facility] Comment on above: Performed By: #### L 100.0100, L503.6030, L503.6550 #### [facility] [address] [place], [address] Basophils/100 WBC (Bld) 0.8 % Normal 0-1 [facility] Comment on above: Performed By: #### L 100.0100, L503.6030, L503.6550 #### [facility] [address] [place], [address] Eosinophils/100 WBC (Bld) 3.1 % Normal 0-5 [facility] Comment on above: Performed By: #### L 100.0100, L503.6030, L503.6550 #### [facility] [address] [place], [address] Erythrocyte distribution width (RBC) [Ratio] 13.7 % Normal 11.6-14.6 [facility] Comment on above: Performed By: #### L 100.0100, L503.6030, L503.6550 #### [facility] [address] [place], [address] Hematocrit (Bld) [Volume fraction] 37.3 % Normal 37-47 [facility] Comment on above: Performed By: #### L 100.0100, L503.6030, L503.6550 #### [facility] [address] [place], [address] Hemoglobin (Bld) [Mass/Vol] 11.9 g/dL Low 12.0-15.0 [facility] Comment on above: Performed By: #### L 100.0100, L503.6030, L503.6550 #### [facility] [address] [place], [address] IG% 0.300 Normal 0.0-0.9 [facility] Comment on above: Result Comment: IG% - Immature Granulocytes (promyelocytes, myelocytes and metamyelocytes) > 1% indicates that a LEFT SHIFT is Present. Performed By: #### L 100.0100, L503.6030, L503.6550 #### [facility] [address] [place], [address] Lymphocytes/100 WBC (Bld) 23.3 % Normal 19-41 [facility] Comment on above: Performed By: #### L 100.0100, L503.6030, L503.6550 #### [facility] [address] [place], [address] MCH (RBC) [Entitic mass] 27.6 pg Normal 27.0-32.0 [facility] Comment on above: Performed By: #### L 100.0100, L503.6030, L503.6550 #### [facility] [address] [place], [address] MCHC (RBC) [Mass/Vol] 31.9 g/dL Low 32-36 [facility] Comment on above: Performed By: #### L 100.0100, L503.6030, L503.6550 #### [facility] [address] [place], [address] MCV (RBC) [Entitic vol] 86.5 fL Normal 81-99 [facility] Comment on above: Performed By: #### L 100.0100, L503.6030, L503.6550 #### [facility] [address] [place], [address] Monocytes/100 WBC (Bld) 10.3 % High 0-10 [facility] Comment on above: Performed By: #### L 100.0100, L503.6030, L503.6550 #### [facility] [address] [facility] [place], [address] Neutrophils/100 WBC (Bld) 62.2 % Normal 47-70 [facility] Comment on above: Performed By: #### L 100.0100, L503.6030, L503.6550 #### [facility] [address] [place], [address] Nucleated RBC (Bld) [#/Vol] 0 10*3/uL Normal 0-5 [facility] Comment on above: Performed By: #### L 100.0100, L503.6030, L503.6550 #### [facility] [address] [place], [address] Platelet mean volume (Bld) [Entitic vol] 11.6 fL Normal 6.2-12.0 [facility] Comment on above: Performed By: #### L 100.0100, L503.6030, L503.6550 #### [facility] [address] [place], [address] Platelets (Bld) [#/Vol] 220 10*3/uL Normal 150-450 [facility] Comment on above: Performed By: #### L 100.0100, L503.6030, L503.6550 #### [facility] [address] [place], [address] RBC (Bld) [#/Vol] 4.31 10*6/uL Normal 4.2-5.4 [facility] Comment on above: Performed By: #### L 100.0100, L503.6030, L503.6550 #### [facility] [address] [place], [address] RDW SD 43.8 fl Normal 35.1-43.9 [facility] Comment on above: Performed By: #### L 100.0100, L503.6030, L503.6550 #### [facility] [address] [place], [address] WBC (Bld) [#/Vol] 3.9 10*3/uL Low 4.4-11.0 [facility] Comment on above: Performed By: #### L 100.0100, L503.6030, L503.6550 #### [facility] [address] [place], [address] Ferritinon 12-19-2024 Ferritin [Mass/Vol] 42 ng/mL Normal 22-378 [facility] Comment on above: Performed By: #### L 100.0100, L503.6030, L503.6550 #### [facility] [address] [place], [address] Iron+Iron Binding Capacityon 12-19-2024 Iron [Mass/Vol] 62 ug/dL Normal 50-170 [facility] Comment on above: Performed By: #### L 100.0100, L503.6030, L503.6550 #### [facility] [address] [place], [address] IRON SATURATION 18.3 Normal 13-59 [facility] Comment on above: Performed By: #### L 100.0100, L503.6030, L503.6550 #### [facility] [address] [place], [address] TIBC 338 ug/dL Normal 250-450 [facility] Comment on above: Performed By: #### L 100.0100, L503.6030, L503.6550 #### [facility] [address] [place], [address] UIBC 276 ug/dL Normal 228-428 [facility] Comment on above: Performed By: #### L 100.0100, L503.6030, L503.6550 #### [facility] [address] [place], [address] Supervisor Rides Office Visit Reporton 12-19-2024 Supervisor Rides Office Visit Report [facility] [address] [place] [address], [address] [place] [address] OFFICE VISIT Date of Service: 12/19/24 MR#: [id number] Acct: [id number] Name: GALINDO JOHNSTON Rep #: [id number] : 1980 Provider: Dr. 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 Boat Fueler Required: No Is patient in pain?: No Allergies codeine Allergy (Verified 12/19/24 10:50) PT UNSURE OF REACTION Medications ???Medication ???Instructions ???Recorded ???Confirmed ???Type cholecalciferol (vitamin D3) 100 100 mcg PO DAILY vitamin 08/30/24 12/19/24 History mcg (4,000 unit) capsule escitalopram oxalate 20 mg tablet 20 mg PO DAILY mental health 10/1712/19/24 History ferrous gluconate 324 mg (38 mg 324 mg PO DAILY 30 days #30 tabs 0 08/31/24 12/19/24 Rx iron) tablet ascorbate calcium (vitamin C) 500 500 mg PO QDAY 09/09/24 12/19/24 History mg tablet levocetirizine 5 mg tablet 5 mg PO QDAY 09/09/24 12/19/24 His tory Post menopausal: No Patient : No : No PFSH Medical History delivery delivered Wears glasses Menorrhagia, premenopausal Iron deficiency anemia Anxiety Former smoker Surgical History History of hysterectomy (11/08/24) Previous section Tubal ligation status H/O wisdom tooth extraction Social History Smoking Status: Former smoker HPI 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 She has no complaints. ROS ENT ENT: Reports system reviewed and no additional complaints, except as documented Cardio Card: Reports system reviewed and no additional complaints, except as documented Resp Resp: Denies cough, dyspnea or dyspnea on exertion GI GI: Denies abdominal pain, bloating or change in bowel habits : Denies vaginal odor or vaginal pruritus Details: lochia is mild Musc Musc: Reports system reviewed and no additional complaints, except as documented Exam Const General: cooperative, healthy appearing and comfortable Resp Effort Inspection: normal respiratory effort GI Palpation: soft and nontender Rectal Exam: other Other: cuff is intact and suture is dissolving. no bleeding or signs of infection Extrem General: no edema Coding Level of Care Code No Charge Diagnoses Status post hysterectomy Z90.710 Assessment and Plan Assessment and Plan (1) Status post hysterectomy: Status: Acute Plan: healing well. mammogram ordered ok to resume intercourse in 2 weeks rto in 1 year Orders: Orders SCRN MAMM (CAD)W/ADITYA BILAT Today 12/19/24 1119 Date Roxanna King DO [facility] Signature: Date (if applicable) CC: Normal [facility] Supervisor Rides Office Visit Reporton 11-21-2024 Supervisor Rides Office Visit Report [facility] [address], [address] [place] [address] OFFICE VISIT Date of Service: 11/21/24 MR#: [id number] Acct: [id number] Name: GALINDO JOHNSTON Rep #: [id number] : 1980 Provider: Dr. Roxanna Ramos DO Age/Sex: 44/F Location: [facility] Status: Signed Intake Vital Signs 09/09/24 13:21 11/08/24 09:00 11/21/24 10:59 11/21/24 10:59 Height 5 ft 4 in 5 ft 4 in 5 ft 4 in 5 ft 4 in Weight: 137 lb 3 oz BMI 23.5 BP 126/78 H Intake Visit Reasons: 2 wk TRH BS Cysto Chief Complaint: 2wk TRH BS Boat Fueler Required: No Is patient in pain?: No Allergies codeine Allergy (Verified 11/21/24 10:54) PT UNSURE OF REACTION Medications ???Medication ???Instructions ???Recorded ???Confirmed ???Type cholecalciferol (vitamin D3) 100 100 mcg PO DAILY vitamin 08/30/24 11/21/24 History mcg (4,000 unit) capsule escitalopram oxalate 20 mg tablet 20 mg PO DAILY mental health 10/1711/21/24 History ferrous gluconate 324 mg (38 mg 324 mg PO DAILY 30 days #30 tabs 0 08/31/24 11/21/24 Rx iron) tablet ascorbate calcium (vitamin C) 500 500 mg PO QDAY 09/09/24 11/21/24 History mg tablet levocetirizine 5 mg tablet 5 mg PO QDAY 09/09/24 11/21/24 His tory Is last menstrual period known: No Post menopausal: No Patient : No : No Control Method: Hysterectomy PFSH Medical History delivery delivered Wears glasses Menorrhagia, premenopausal Iron deficiency anemia Anxiety Former smoker Surgical History History of hysterectomy (11/08/24) Previous section Tubal ligation status H/O wisdom tooth extraction Social History Smoking Status: Former smoker HPI 2 wk 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 Pathology was benign and she is feeling well. She states that she has not taken any pain meds for a week. She wants to go back to work this week. ROS ENT ENT: Reports system reviewed and no additional complaints, except as documented Cardio Card: Reports system reviewed and no additional complaints, except as documented Resp Resp: Denies cough, dyspnea or dyspnea on exertion GI GI: Denies abdominal pain, bloating or change in bowel habits : Denies vaginal odor or vaginal pruritus Musc Musc: Reports system reviewed and no additional complaints, except as documented Exam Const General: cooperative, healthy appearing and comfortable Resp Effort Inspection: normal respiratory effort GI Palpation: soft and nontender Rectal Exam: other Extrem General: no edema Coding Level of Care Code No Charge Diagnoses Status post hysterectomy Z90.710 Assessment and Plan Assessment and Plan (1) Status post hysterectomy: Status: Acute Plan: pathology reviewed and benign. may return to sit down job only and start walking some. no sex x 6 more weeks. 11/21/24 1258 Date Roxanna Newell Signature: Date (if applicable) CC: Normal [facility] Absolute lymphocyte countOrd ered By: Inocencio Frye on 11-16-2024 Lymphocytes Auto (Unsp spec) [#/Vol] 0.95 10*3/uL 0.83-4.51 [facility] Absolute neutrophil countOrd ered By: Inocencio Frye on 11-16-2024 Neutrophils (Bld) [#/Vol] 2.4 10*3/uL 2.0-7.7 [facility] Automated lymphocyte count a s percentage of total leukocytesOrdered By: Inocencio Frye on 11-16-2024 Lymphocytes/100 WBC Auto (Unsp spec) 24.1 % 19-41 [facility] Basophil percentageOrdered B y: Inocencio Frye on 11-16-2024 Basophils/100 WBC (Bld) 1.5 % High 0-1 [facility] CBC W/Diff, Automatedon 10-25 Absolute Lymph 0.95 X10 3/uL Normal 0.83-4.51 [facility] Comment on above: Performed By: #### L 100.0100, L503.6023, L503.6550 #### [facility] [address] [place], [address] Absolute Neut 2.4 X10 3/uL Normal 2.0-7.7 [facility] Comment on above: Performed By: #### L 100.0100, L503.6030, L503.6550 #### [facility] [address] [place], [address] Basophils/100 WBC (Bld) 1.5 % High 0-1 [facility] Comment on above: Performed By: #### L 100.0100, L503.6030, L503.6550 #### [facility] [address] [place], [place] [address] Eosinophils/100 WBC (Bld) 2.8 % Normal 0-5 [facility] Comment on above: Performed By: #### L 100.0100, L503.6030, L503.6550 #### [facility] [address] [place], [address] Erythrocyte distribution width (RBC) [Ratio] 15.2 % High 11.6-14.6 [facility] Comment on above: Performed By: #### L 100.0100, L503.6030, L503.6550 #### [facility] [address] [place], [address] Hematocrit (Bld) [Volume fraction] 35.6 % Low 37-47 [facility] Comment on above: Performed By: #### L 100.0100, L503.6030, L503.6550 #### [facility] [address] [place], [address] Hemoglobin (Bld) [Mass/Vol] 10.9 g/dL Low 12.0-15.0 [facility] Comment on above: Performed By: #### L 100.0100, L503.6030, L503.6550 #### [facility] [address] [place], [address] IG% 0.300 Normal 0.0-0.9 [facility] Comment on above: Result Comment: IG% - Immature Granulocytes (promyelocytes, myelocytes and metamyelocytes) > 1% indicates that a LEFT SHIFT is Present. Performed By: #### L 100.0100, L503.6030, L503.6550 #### [facility] [address] [place], [address] Lymphocytes/100 WBC (Bld) 24.1 % Normal 19-41 [facility] Comment on above: Performed By: #### L 100.0100, L503.6030, L503.6550 #### [facility] [address] [place], [address] MCH (RBC) [Entitic mass] 27.5 pg Normal 27.0-32.0 [facility] Comment on above: Performed By: #### L 100.0100, L503.6030, L503.6550 #### [facility] [address] [place], [address] MCHC (RBC) [Mass/Vol] 30.6 g/dL Low 32-36 [facility] Comment on above: Performed By: #### L 100.0100, L503.6030, L503.6550 #### [facility] [address] [place], [address] MCV (RBC) [Entitic vol] 89.9 fL Normal 81-99 [facility] Comment on above: Performed By: #### L 100.0100, L503.6030, L503.6550 #### [facility] [address] [place], [address] Monocytes/100 WBC (Bld) 10.4 % High 0-10 [facility] Comment on above: Performed By: #### L 100.0100, L503.6030, L503.6550 #### [facility] [address] [place], [address] Neutrophils/100 WBC (Bld) 60.9 % Normal 47-70 [facility] Comment on above: Performed By: #### L 100.0100, L503.6030, L503.6550 #### [facility] [address] [place], [address] Nucleated RBC (Bld) [#/Vol] 0 10*3/uL Normal 0-5 [facility] Comment on above: Performed By: #### L 100.0100, L503.6030, L503.6550 #### [facility] [address] [place], [address] Platelet mean volume (Bld) [Entitic vol] 12.2 fL High 6.2-12.0 [facility] Comment on above: Performed By: #### L 100.0100, L503.6030, L503.6550 #### [facility] [address] [place], [address] Platelets (Bld) [#/Vol] 236 10*3/uL Normal 150-450 [facility] Comment on above: Performed By: #### L 100.0100, L503.6030, L503.6550 #### [facility] [address] [place], [address] RBC (Bld) [#/Vol] 3.96 10*6/uL Low 4.2-5.4 [facility] Comment on above: Performed By: #### L 100.0100, L503.6030, L503.6550 #### [facility] [address] [place], [address] RDW SD 48.3 fl High 35.1-43.9 [facility] Comment on above: Performed By: #### L 100.0100, L503.6030, L503.6550 #### [facility] [address] [place], [address] WBC (Bld) [#/Vol] 3.9 10*3/uL Low 4.4-11.0 [facility] Comment on above: Performed By: #### L 100.0100, L503.6030, L503.6550 #### [facility] [address] [place], [address] Eosinophil percentageOrdered By: Inocencio Frye on 11-16-2024 Eosinophils/100 WBC (Bld) 2.8 % 0-5 [facility] Erythrocyte distribution wid th ratioOrdered By: Inocencio Frye on 11-16-2024 Erythrocyte distribution width (RBC) [Ratio] 15.2 % High 11.6-14.6 [facility] Erythrocyte distribution wid th standard deviationOrdered By: Inocencio Frye on 11-16-2024 Erythrocyte distribution width (RBC) [Ratio] 48.3 fl High 35.1-43.9 [facility] Ferritinon 11-16-2024 Ferritin [Mass/Vol] 43 ng/mL Normal 22-378 [facility] Comment on above: Performed By: #### L 100.0100, L503.6030, L503.6550 #### [facility] [address] [place], [address] Hematocrit Auto (Bld) [Volum e fraction]Ordered By: Inocencio Frye on 11-16-2024 Hematocrit (Bld) [Volume fraction] 35.6 % Low 37-47 [facility] Hemoglobin measurementOrdere d By: Inocencio Frye on 11-16-2024 Hemoglobin (Bld) [Mass/Vol] 10.9 g/dL Low 12.0-15.0 [facility] Immature granulocytes/100 WB C Auto (Bld)Ordered By: Inocencio Frye on 11-16-2024 Immature granulocytes/100 WBC (Bld) 0.300 % 0.0-0.9 [facility] Comment on above: IG% - Immature Granu locytes (promyelocytes, myelocytes and metamyelocytes) > 1% indicates that a LEFT SHIFT is Present. Iron measurement (mass/mass) Ordered By: Inocencio Frye on 11-16-2024 Iron (Unsp spec) [Mass/Mass] 211 ug/dL High 50-170 [facility] Iron+Iron Binding Capacityon 11-16-2024 Iron [Mass/Vol] 211 ug/dL High 50-170 [facility] Comment on above: Performed By: #### L 100.0100, L503.6030, L503.6550 #### [facility] [address] [place], [address] IRON SATURATION 54.9 Normal 13-59 [facility] Comment on above: Performed By: #### L 100.0100, L503.6030, L503.6550 #### [facility] [address] [place], [address] TIBC 384 ug/dL Normal 250-450 [facility] Comment on above: Performed By: #### L 100.0100, L503.6030, L503.6550 #### [facility] [address] [place], [address] UIBC 173 ug/dL Low 228-428 [facility] Comment on above: Performed By: #### L 100.0100, L503.6030, L503.6550 #### [facility] [address] [place], [address] MCV (mean corpuscular volume ) determinationOrdered By: Inocencio Frye on 11-16-2024 MCV (RBC) [Entitic vol] 89.9 fL 81-99 [facility] Mean corpuscular hemoglobin (MCH) determinationOrdered By: Inocencio Frye on 11-16-2024 MCH (RBC) [Entitic mass] 27.5 pg 27.0-32.0 [facility] Mean corpuscular hemoglobin concentration (MCHC) determinationOrdered By: Inocencio Frye on 11-16-2024 MCHC (RBC) [Mass/Vol] 30.6 g/dL Low 32-36 [facility] Mean platelet volume determi nationOrdered By: Inocencio Frye on 11-16-2024 Platelet mean volume (Bld) [Entitic vol] 12.2 fL High 6.2-12.0 [facility] Monocyte percentageOrdered B y: Inocencio Frye on 11-16-2024 Monocytes/100 WBC (Bld) 10.4 % High 0-10 [facility] Neutrophil percentageOrdered By: Inocencio Frye on 11-16-2024 Neutrophils/100 WBC (Bld) 60.9 % 47-70 [facility] No Panel InformationOrdered By: Inocencio Frye on 11-16-2024 Unsaturated Iron Binding Capacity 173 ug/dL Low 228-428 [facility] Nucleated red blood cell per centageOrdered By: Inocencio Frye on 11-16-2024 Nucleated RBC/100 WBC (Bld) [Ratio] 0 % 0-5 [facility] Platelet countOrdered By: Chacha Frye on 11-16-2024 Platelets (Bld) [#/Vol] 236 10*3/uL 150-450 [facility] RBC Auto (Bld) [#/Vol]Ordere d By: Inocencio Frye on 11-16-2024 RBC (Bld) [#/Vol] 3.96 10*6/uL Low 4.2-5.4 [facility] Serum or plasma ferritin marti surement (mass/volume)Ordered By: Inocencio Frye on 11-16-2024 Ferritin [Mass/Vol] 43 ng/mL 22-378 [facility] Serum or plasma iron saturat ion measurement (mass fraction)Ordered By: Inocencio Frye on 11-16-2024 Iron saturation [Mass fraction] 54.9 % 13-59 [facility] White blood cell (WBC) count Ordered By: Inocencio Frye on 11-16-2024 WBC (Bld) [#/Vol] 3.9 10*3/uL Low 4.4-11.0 [facility] Bedside Glucoseon 11-08-2024 FINGERSTICK GLU 93 mg/dL Normal 74-106 [facility] Comment on above: Result Comment: GEOVANNA URIBE OF PATIENT CARE PER NURSING PROTOCOL Performed By: #### L 501.080 #### [facility] [address] [place], [address] CBC-Complete Blood Cnt No Di ffon 11-08-2024 PLT TNP Normal 150-450 [facility] Comment on above: Performed By: #### L 100.0500 #### [facility] [address] [place], [address] Erythrocyte distribution width (RBC) [Ratio] 19.0 % High 11.6-14.6 [facility] Comment on above: Performed By: #### L 100.0500 #### [facility] [address] [place], [address] Hematocrit (Bld) [Volume fraction] 33.5 % Low 37-47 [facility] Comment on above: Performed By: #### L 100.0500 #### [facility] [address] [place], [address] Hemoglobin (Bld) [Mass/Vol] 10.4 g/dL Low 12.0-15.0 [facility] Comment on above: Performed By: #### L 100.0500 #### [facility] [address] [place], [address] MCH (RBC) [Entitic mass] 27.3 pg Normal 27.0-32.0 [facility] Comment on above: Performed By: #### L 100.0500 #### [facility] [address] [place], [address] MCHC (RBC) [Mass/Vol] 31.0 g/dL Low 32-36 [facility] Comment on above: Performed By: #### L 100.0500 #### [facility] [address] [place], [address] MCV (RBC) [Entitic vol] 87.9 fL Normal 81-99 [facility] Comment on above: Performed By: #### L 100.0500 #### [facility] [address] [place], [address] Platelet mean volume (Bld) [Entitic vol] 12.3 fL High 6.2-12.0 [facility] Comment on above: Performed By: #### L 100.0500 #### [facility] [address] [place], [address] RBC (Bld) [#/Vol] 3.81 10*6/uL Low 4.2-5.4 [facility] Comment on above: Performed By: #### L 100.0500 #### [facility] [address] [place], [address] RDW SD 60.3 fl High 35.1-43.9 [facility] Comment on above: Performed By: #### L 100.0500 #### [facility] [address] [place], [address] WBC (Bld) [#/Vol] 4.3 10*3/uL Low 4.4-11.0 [facility] Comment on above: Performed By: #### L 100.0500 #### [facility] [address] [place], [address] Discharge Instructionon 10-24 Discharge Instruction [facility] Medical Records Department [address] [address] Instructions for Home/Discharge Instructions 11/08/24 0940 MR#: [id number] Acct: [id number] Name: GALINDO JOHNSTON Rep #: [id number] : 1980 44 From: Roxanna King DO PCP: Dr. Inocencio Frye MD Status:REG SDC Discharge Instructions DC O2, CPAP, BIPAP needs Home O2 Discharge instructions: No Dressing / Incision Discharge Activity: May Shower May resume sexual activity in: 8 weeks Weight Bearing Status: Full weight bearing Lifting Restrictions: 10 pounds for 2 weeks Dressing / Incision Call your doctor if your incision/area has: Continuous Slow Oozing, Sudden Increased Bleeding, Increased Pain/ Swelling, Increased Redness and Foul Smelling Discharge Call your doctor if you observe: Fever of 101 or Higher, Using more than 1 pad per hour, Shortness of breath, Chest pain and Uncontrolled pain Suture Line Care: Avoid Pulling/Pushing and Avoid Pinching/Bending Remove Dressing in: 1 week (if present) Cleanse incision/area with: Soap Water and Keep Dressing Clean Dry Follow Up Care Please Follow Up With: Roxanna King DO When: Call to make an appointment with your doctor for a postop visit in 2 and 6 weeks Test Results: Test results from this visit will be discussed in further detail at your follow-up appointment, if applicable. Discharge Plan Admission Primary Reason for Your Visit: hysterectomy Attending Provider: Roxanna King Primary Care Provider: Inocencio Frye Instructions Print Language: Algerian Discharge Orders/Prescriptions Prescriptions: New ibuprofen 800 mg tablet 800 mg PO Q8H PRN (Reason: pain) Qty: 30 0RF oxycodone-acetaminophen [Percocet] 5-325 mg tablet 1 tab PO Q4H PRN (Reason: pain) 7 Days Qty: 20 0RF Continued ascorbate calcium (vitamin C) 500 mg tablet 500 mg PO QDAY levocetirizine 5 mg tablet 5 mg PO QDAY escitalopram oxalate 20 mg tablet 20 mg PO DAILY cholecalciferol (vitamin D3) 100 mcg (4,000 unit) capsule 100 mcg PO DAILY ferrous gluconate 324 mg (38 mg iron) tablet 324 mg PO DAILY 30 Days Qty: 30 0RF ropinirole 1 mg tablet 1 mg PO QHS Discontinued megestrol 40 mg tablet 40 mg PO QDAY Qty: 30 0RF Referrals / Follow Up: Inocencio Frye MD [Primary Care Provider] - Disposition Disposition (needs filled in before D/C Order can be placed): Home, Self Care 11/08/24948 Roxanna King DO CC: Dr. Inocencio Frye MD Signed Normal [facility] Erythrocyte distribution wid th ratioOrdered By: Roxanna Thurman on 11-08-2024 Erythrocyte distribution width (RBC) [Ratio] 19.0 % High 11.6-14.6 [facility] Erythrocyte distribution wid th standard deviationOrdered By: Roxanna Thurman on 11-08-2024 Erythrocyte distribution width (RBC) [Ratio] 60.3 fl High 35.1-43.9 [facility] Glucose measurement at bedsi deOrdered By: Roxanna Thurman on 11-08-2024 Glucose [Mass/Vol] 93 mg/dL 74-106 [facility] Comment on above: MANAGEMENT OF PATIEN T CARE PER NURSING PROTOCOL Hematocrit Auto (Bld) [Volum e fraction]Ordered By: Roxanna Thurman on 11-08-2024 Hematocrit (Bld) [Volume fraction] 33.5 % Low 37-47 [facility] Hemoglobin measurementOrdere d By: Roxanna Thurman on 11-08-2024 Hemoglobin (Bld) [Mass/Vol] 10.4 g/dL Low 12.0-15.0 [facility] MCV (mean corpuscular volume ) determinationOrdered By: Roxanna Thurman on 11-08-2024 MCV (RBC) [Entitic vol] 87.9 fL Invalid Interpretation Code 81-99 [facility] Comment on above: Delta: 92.6 on 11/07-1443 MR/POSTOP.ANEon 11-08-2024 MR/POSTOP.ANE [facility] Medical Records Department [address] [place] [address] Anesthesia Postop Eval I 11/08/24 1226 MR#: [id number] Acct: [id number] Name: GLAINDO JOHNSTON Rep #: [id number] : 1980 44 From: Steven Escobar CRNA PCP: Dr. Inocencio Frye MD Status:REG [facility] [place] [place] Race: C Location: [place] [address] Anesthesia: Postop Eval I Current Vital Signs Temperature: 97.7 F Pulse Rate: 90 Blood Pressure: 112/80 Respiratory Rate: 14 Pulse Ox: 97 Assessment Airway patent: Yes Spontaneous unlabored respirations: Yes nausea: No Vomiting: No Anesthesia Complication: No Fluid Hydration Crystalloid volume administer (ml): 1,400 Total IV fluid infused: 1,400 Progress Note Anesthesia document: Postop Eval 1 completed: Yes 11/08/24 1227 Date Steven Escobar SUBACUTE NURSE Cosigner Signature: Date CC: Signed Normal [facility] MR/[id number] 11-08-2024 MR/POSTOPAN2 [facility] Medical Records Department [address] [place] [address] Anesthesia Postop Eval II 11/08/24 1513 MR#: [id number] Acct: [id number] Name: GALINDO JOHNSTON Rep #: [id number] : 1980 44 From: Veronica Morales SUBACUTE NURSE PCP: Dr. Inocencio Frye MD Status:REG [facility] [place] Race: C Location: [place] [address] Anesthesia Postop Eval I Sum Postop Eval Completion status Anesthesia document: Postop Eval 1 completed: Yes Anesthesia Postop Eval I Summary Anesthesia Postop Eval I Summary: Anesthesia Postop Eval I: Assessment Summary Airway patent Yes 11/08/24 12:26 SUBACUTE [email or web address] Spontaneous unlabored Yes 11/08/24 12:26 SUBACUTE NURSE.RWOO respirations Mental status nausea No 11/08/24 12:26 SUBACUTE NURSE.RWOO Vomiting No 11/08/24 12:26 SUBACUTE NURSE.RWOO Anesthesia Postop Eval I: Fluid Summary Crystalloid volume administer 1,400 11/08/24 12:26 SUBACUTE NURSE.RWOO (ml) Colloids volume administered ( ml) Blood Product volume administered (ml) Total IV fluid infused 1,400 11/08/24 12:26 SUBACUTE [email or web address].RWOO Anesthesia Postop Eval I: Summary Notes Anesthesia Complication No 11/08/24 12:26 SUBACUTE [email or web address].RWOO Anesthesia Complication Comment: Post-operative progress note Anesthesia: Postop Eval II Evaluation Mental status: Awake and Calm Pain Level: 2 nausea: No Vomiting: No Complications Anesthesia Complication: No 11/08/24 1514 Date Veronica Morales SUBACUTE NURSE Cosigner Signature: Date CC: Signed Normal [facility] Mean corpuscular hemoglobin (MCH) determinationOrdered By: Roxanna Thurmna on 11-08-2024 MCH (RBC) [Entitic mass] 27.3 pg 27.0-32.0 [facility] Mean corpuscular hemoglobin concentration (MCHC) determinationOrdered By: Roxanna Thurman on 11-08-2024 MCHC (RBC) [Mass/Vol] 31.0 g/dL Low 32-36 [facility] Mean platelet volume determi nationOrdered By: Roxanna Thurman on 11-08-2024 Platelet mean volume (Bld) [Entitic vol] 12.3 fL High 6.2-12.0 [facility] Operative Reporton 5 Operative Report [facility] Medical Records Department [address] [place] [address] Operative Report 11/08/24 1209 MR#: [id number] Acct: [id number] Name: GALINDO JOHNSTON Rep #: [id number] : 1980 44 From: Roxanna King DO PCP: Dr. Inocencio Frye MD Status:[facility] Location: [place] [address] Problems Associated Problem List Diagnoses (1) Anemia: (2) Fibroid uterus: (3) Menorrhagia: Multi Select Codes Urinary/Genital Urinary/Genital CPT Codes: 49540 Cystoscopy and 79614 TLH+BS/O >250gr uterus Operative Report (Standard) Operative Information Date of Procedure: 11/08/24 Pre-Operative Diagnosis: menorrhagia, acute blood loss anemia, fibroid uterus Post-Operative Diagnosis: menorrhagia, acute blood loss anemia, fibroid uterus Surgery/Procedure Performed: total robotic hysterectomy, bilateral salpingectomy, cystoscopy city manager: Yes [place] Tribunal Member: Anna Aldrich Tasks completed by hospital clinic assistant: Closing, Trocar and Other (suction irrigation ) Additional legal administrative assistant?: No Type of Anesthesia: General RN Documented Start/Stop Times: Operation Date: 11/08/24 10:15 Case Time Into Pre-Op 11/08/24 08:05 Out of Pre-Op 11/08/24 10:08 Anesthesia Start 11/08/24 10:12 Into Room 11/08/24 10:12 Procedure Start 11/08/24 10:40 Procedure Start Time: 10:40 Procedure Stop Time: 12:10 Select all DRAINS/GRAFTS/IMPLANTS that apply: None Special Medications: none Estimated Blood Loss: 50cc Fluids Replaced: 1100 Specimen collected: Yes Description of specimen(s) removed: uterus, cervix, fibroid, bilateral fallopian tube segments Description of surgery: Findings: 16 cm uterus with large fibroid, normal appearing ovaries and tubes. On exploration of the abdominal cavity the uterus, adnexa, bowel, and liver were found to be normal. Cystoscopy showed no evidence of leaking at approximately 250 cc of normal saline, positive ureteral orifices and jet flow are seen and no suture material was appreciated in the bladder. Specimens removed: Uterus and cervix, Bilateral tubes Reason for surgery: This is a -year-old G2, P2 who presented to my office with history of heavy vaginal bleeding, requiring 2 separate blood transfusions since August. Ultrasound shows an enlarged uterus with a 6 cm fibroid. The planned procedure is for a robotic hysterectomy the risks benefits and alternatives were discussed with the patient the patient had a clear understanding of the procedure and a consent form was signed. Procedure: The patient was placed in the dorsal low lithotomy position and prepped and draped in the normal sterile fashion both abdominally and in the perineum. Her legs were placed in stirrups a Souza catheter was inserted into the urethra without difficulty. A weighted speculum was placed in the vagina and a single-tooth tenaculum was used to grasp the anterior lip of the cervix. An [employer] uterine manipulator was inserted through the cervix without complication and the uterus sounded to 16 cm.. It was then tied into place at the 2 and 10:00 locations on the cervix. Gloves were changed and attention was turned towards the abdomen. Approximately 23 cm above the pubic symphysis in the midline, and after Marcaine injection, a 8 mm incision was made. An 8 mm trocar was inserted through the laparoscope, then inserted into the abdomen under direct visualization using the laparoscope. Good abdominal placement was noted and no complications were appreciated. An air seal device was utilized to create pneumoperitoneum. At 12 cm lateral to the midline on the left and right sides 8 mm accessory ports were placed. Next a left upper quadrant 8 mm legal administrative assistant port site was placed. The patient was placed in steep Trendelenburg position. The robot was docked. The hysterectomy was initiated first by taking down the round ligament on each side using the vessel sealer device. The fallopian tube segments were removed with the Vessel sealer and passed off through the abdominal port sites. The broad ligament was then and taken down using the vessel sealer device. Next the bladder flap was taken down without complication. This was done using monopolar cautery to the level of the cervical vaginal junction. After the bladder flap was created, uterine vessels were then isolated and cauterized using the vessel sealer device and EndoShears. At this point the uterine vessels were taken down further starting from the ascending branch, dissecting along the edges of the cervix to the level of the cervical vaginal junction with hemostasis appreciated. The cervical vaginal junction was then using monopolar cautery in a circumferential pattern across the superior aspect of the cervix. The specimen was delivered through the vagina and sent to pathology. The remaining vaginal cuff was then closed using a V lock sutu (more content not included)... Normal [facility] Platelet countOrdered By: Luca Thurman on 11-08-2024 Platelet count [facility] Comment on above: Test not performed RBC Auto (Bld) [#/Vol]Ordere d By: Roxanna Thurman on 11-08-2024 RBC (Bld) [#/Vol] 3.81 10*6/uL Low 4.2-5.4 [facility] Surgery Specimen Level Von 0 11-08-2024 Surgery Specimen Level V Patient Age/Sex Location Account Attending Physician PRESTONGALINDO MUÑOZ 44/F [facility] [id number]. Roxanna King, Charles Specimen: [id number] Received: 11/08/24 Status: SENTHIL Vidal Num: [id number] Spec Type: UTERUS Subm Dr: Dr. Roxanna King, DO HEADER OPERATION: ERAS, laparoscopic total robotic hysterectomy bilateral salpingectomy, cystoscopy PRE-OP DIAGNOSIS: Fibroid uterus, menorrhagia TISSUE SUBMITTED: A- Uterus, cervix, bilateral fallopian tubes MICROSCOPIC DIAGNOSIS A. Uterus, uterine cervix, and bilateral fallopian tubes, laparoscopic hysterectomy and bilateral salpingectomies: - Squamous metaplasia and slight chronic cystic endocervicitis of the uterine cervix - Weakly proliferative endometrium with superficial adenomyosis of the underlying myometrium - Intramural leiomyoma with central hyaline degeneration in the fundic myometrium - Full thickness segments of two benign fallopian tubes - Endometriotic cysts in the uterine subserosa MICROSCOPIC DESCRIPTION Slides are reviewed. GROSS DESCRIPTION A. Received in formalin labeled with the patient's name and date of . Designated as, uterus and cervix and bilateral fallopian tubes, is a 355 g markedly disrupted ackerman-pink uterus with detached cervix and fallopian tubes the uterus measures 13.2 x 10.5 x 7.3 cm. There are possible, focal serosal adhesions. The uterus is unable to be oriented or inked. The detached and opened cervix is ackerman-pink, focally erythematous and measures 3.3 x 2.3 cm; when reapproximated, the os measures approximately 1.0 cm and is expelling mucoid material. Mucoid containing cyst are present. The intact endometrial canal measures approximately 4.7 x 4.5 cm and is lined by pale ackerman granular endometrium measuring up to 0.3 cm; the endometrial canal is distorted by a 7.4 cm intramural leiomyoma. The myometrium is ackerman with pale ackerman-yellow areas of edema and measures up to 3.0 cm thick. The detached, pink-red fimbriated fallopian tubes are undesignated and measure 3.0 x 0.7 cm and 2.5 x 1.0 cm. Maintenance Analyst sections are submitted as follows: A1-A2: CervixA3: Intact endometrium and myometriumA4: Distorted endometrium and myometriumA5-A6: LeiomyomaA7: Longer fallopian tubeA8: Kell fallopian tubeA9: Possible serosal adhesions NM 11/08/2024 CPT:31393 Patient Age/Sex Location Account Attending Physician GALINDO JOHNSTON 44/ [facility] [id number]. Roxanna King, [place] Signed (signature on file) Dr. Salvatore Shaffer MD 11/14/24 1141 Normal [facility] Comment on above: Performed By: #### P SUV ####[facility] [address] [place], [place], [id number] White blood cell (WBC) count Ordered By: Roxanna Thurman on 11-08-2024 WBC (Bld) [#/Vol] 4.3 10*3/uL Low 4.4-11.0 [facility] Absolute lymphocyte countOrd ered By: Roxanna Thurman on 11-07-2024 Lymphocytes Auto (Unsp spec) [#/Vol] 1.04 10*3/uL 0.83-4.51 [facility] Absolute neutrophil countOrd ered By: Roxanna Thurman on 11-07-2024 Neutrophils (Bld) [#/Vol] 2.3 10*3/uL 2.0-7.7 [facility] Automated lymphocyte count a s percentage of total leukocytesOrdered By: Roxanna Thurman on 11-07-2024 Lymphocytes/100 WBC Auto (Unsp spec) 26.7 % 19-41 [facility] BRCon 09-15-2025 RC Normal [facility] Comment on above: Result Comment: [id number] OP RC READY [id number] OP RC TRANSFUSED 11/07/241809 [id number] OP RC TRANSFUSED 11/07/242134 Performed By: #### L 100.0100, L503.6030, L503.6550 #### [facility] [address] [place], [address] Result Comment: [id number] OP RC READY [id number] OP RC READY [id number] OP RC READY Result Comment: [id number] OP RC NOT AVAILABLE [id number] OP RC TRANSFUSED 11/07/241809 [id number] OP RC TRANSFUSED 11/07/242134 Basophil percentageOrdered B y: Roxanna Thurman on 11-07-2024 Basophils/100 WBC (Bld) 1.0 % 0-1 [facility] CBC W/Diff, Automatedon 10-24 Absolute Lymph 1.04 X10 3/uL Normal 0.83-4.51 [facility] Comment on above: Performed By: #### L 100.0100, L503.6030, L503.6550 #### [facility] [address] [place], [address] Absolute Neut 2.3 X10 3/uL Normal 2.0-7.7 [facility] Comment on above: Performed By: #### L 100.0100, L503.6030, L503.6550 #### [facility] [address] [place], [address] Basophils/100 WBC (Bld) 1.0 % Normal 0-1 [facility] Comment on above: Performed By: #### L 100.0100, L503.6030, L503.6550 #### [facility] [address] [place], [address] Eosinophils/100 WBC (Bld) 1.5 % Normal 0-5 [facility] Comment on above: Performed By: #### L 100.0100, L503.6030, L503.6550 #### [facility] [address] [place], [address] Erythrocyte distribution width (RBC) [Ratio] 16.9 % High 11.6-14.6 [facility] Comment on above: Performed By: #### L 100.0100, L503.6030, L503.6550 #### [facility] [address] [place], [address] Hematocrit (Bld) [Volume fraction] 23.7 % Low 37-47 [facility] Comment on above: Performed By: #### L 100.0100, L503.6030, L503.6550 #### [facility] [address] [place], [address] Hemoglobin (Bld) [Mass/Vol] 7.1 g/dL Low 12.0-15.0 [facility] Comment on above: Performed By: #### L 100.0100, L503.6030, L503.6550 #### [facility] [address] [place], [address] IG% 0.300 Normal 0.0-0.9 [facility] Comment on above: Result Comment: IG% - Immature Granulocytes (promyelocytes, myelocytes and metamyelocytes) > 1% indicates that a LEFT SHIFT is Present. Performed By: #### L 100.0100, L503.6030, L503.6550 #### [facility] [address] [place], [address] Lymphocytes/100 WBC (Bld) 26.7 % Normal 19-41 [facility] Comment on above: Performed By: #### L 100.0100, L503.6030, L503.6550 #### [facility] [address] [place], [address] MCH (RBC) [Entitic mass] 27.7 pg Normal 27.0-32.0 [facility] Comment on above: Performed By: #### L 100.0100, L503.6030, L503.6550 #### [facility] [address] [place], [address] MCHC (RBC) [Mass/Vol] 30.0 g/dL Low 32-36 [facility] Comment on above: Performed By: #### L 100.0100, L503.6030, L503.6550 #### [facility] [address] [place], [address] MCV (RBC) [Entitic vol] 92.6 fL Normal 81-99 [facility] Comment on above: Performed By: #### L 100.0100, L503.6030, L503.6550 #### [facility] [address] [place], [address] Monocytes/100 WBC (Bld) 12.3 % High 0-10 [facility] Comment on above: Performed By: #### L 100.0100, L503.6030, L503.6550 #### [facility] [address] [place], [address] Neutrophils/100 WBC (Bld) 58.2 % Normal 47-70 [facility] Comment on above: Performed By: #### L 100.0100, L503.6030, L503.6550 #### [facility] [address] [place], [address] Nucleated RBC (Bld) [#/Vol] 0 10*3/uL Normal 0-5 [facility] Comment on above: Performed By: #### L 100.0100, L503.6030, L503.6550 #### [facility] [address] [place], [address] Platelet mean volume (Bld) [Entitic vol] 11.5 fL Normal 6.2-12.0 [facility] Comment on above: Performed By: #### L 100.0100, L503.6030, L503.6550 #### [facility] [address] [place], [address] Platelets (Bld) [#/Vol] 262 10*3/uL Normal 150-450 [facility] Comment on above: Performed By: #### L 100.0100, L503.6030, L503.6550 #### [facility] [address] [place], [address] RBC (Bld) [#/Vol] 2.56 10*6/uL Low 4.2-5.4 [facility] Comment on above: Performed By: #### L 100.0100, L503.6030, L503.6550 #### [facility] [address] [place], [address] RDW SD 50.4 fl High 35.1-43.9 [facility] Comment on above: Performed By: #### L 100.0100, L503.6030, L503.6550 #### [facility] [address] [place], [address] WBC (Bld) [#/Vol] 3.9 10*3/uL Low 4.4-11.0 [facility] Comment on above: Performed By: #### L 100.0100, L503.6030, L503.6550 #### [facility] [address] [place], [address] Eosinophil percentageOrdered By: Roxanna Thurman on 11-07-2024 Eosinophils/100 WBC (Bld) 1.5 % 0-5 [facility] Immature granulocytes/100 WB C Auto (Bld)Ordered By: Roxanna Thurman on 11-07-2024 Immature granulocytes/100 WBC (Bld) 0.300 % 0.0-0.9 [facility] Comment on above: IG% - Immature Granu locytes (promyelocytes, myelocytes and metamyelocytes) > 1% indicates that a LEFT SHIFT is Present. Monocyte percentageOrdered B y: Roxanna Thurman on 11-07-2024 Monocytes/100 WBC (Bld) 12.3 % High 0-10 [facility] Neutrophil percentageOrdered By: Roxanna Eastmanlauro on 11-07-2024 Neutrophils/100 WBC (Bld) 58.2 % 47-70 [facility] Nucleated red blood cell per centageOrdered By: Roxanna Eastmanlauro on 11-07-2024 Nucleated RBC/100 WBC (Bld) [Ratio] 0 % 0-5 [facility] Type AND Screen - PAT ONLYon 11-07-2024 Ab SCREEN GEL Negative Normal [facility] Comment on above: Order Comment: NoNNNGIVE 1 TODAY AND HOLD TWO MORE FOR O.R.[id number].TOTAL HYSTERECTOMYOTHER Performed By: #### L 100.0100, L503.6030, L503.6550 #### [facility] [address] [facility] [place], [place], [id number] ABO and Rh group Nom (Bld) Blood group O Rh(D) positive Normal [facility] Comment on above: Order Comment: NoNNNGIVE 1 TODAY AND HOLD TWO MORE FOR O.R.[id number].TOTAL HYSTERECTOMYOTHER Performed By: #### L 100.0100, L503.6030, L503.6550 #### [facility] [address] [place], [address] Absolute lymphocyte countOrd ered By: Marvel Corley on 11-06-2024 Lymphocytes Auto (Unsp spec) [#/Vol] 0.63 10*3/uL Low 0.83-4.51 [facility] Absolute neutrophil countOrd ered By: Marvel Corley on 11-06-2024 Neutrophils (Bld) [#/Vol] 6.1 10*3/uL 2.0-7.7 [facility] Anion gap in Serum or Plasma Ordered By: Marvel Corley on 11-06-2024 Anion gap [Moles/Vol] 11 mmol/L 5-15 [facility] Automated lymphocyte count a s percentage of total leukocytesOrdered By: Marvel Corley on 11-06-2024 Lymphocytes/100 WBC Auto (Unsp spec) 8.5 % Low 19- [facility] BUN/creatinine ratioOrdered By: Marvel Corley on 11-06-2024 Urea nitrogen/Creatinine [Mass ratio] 19.0 mg/mg - [facility] Basic Metabolic Profile (BMP )on 11-06-2024 BUN/CRE 19.0 RATIO Normal - [facility] Comment on above: Performed By: #### L 100.0100, L503.6030, L503.6550 #### [facility] [address] [place], [address] Calcium [Mass/Vol] 8.8 mg/dL Normal 7.6-11.0 [facility] Comment on above: Performed By: #### L 100.0100, L503.6030, L503.6550 #### [facility] [address] [place], [address] Chloride [Moles/Vol] 108 mmol/L Normal 98-108 [facility] Comment on above: Performed By: #### L 100.0100, L503.6030, L503.6550 #### [facility] [address] [place], [address] CO2 [Moles/Vol] 20.6 mmol/L Low 21.0-32.0 [facility] Comment on above: Performed By: #### L 100.0100, L503.6030, L503.6550 #### [facility] [address] [place], [address] Creatinine [Mass/Vol] 0.73 mg/dL Normal 0.70-1.20 [facility] Comment on above: Performed By: #### L 100.0100, L503.6030, L503.6550 #### [facility] [address] [place], [address] ECRCL 83.15 ml/min Normal 50-250 [facility] Comment on above: Performed By: #### L 100.0100, L503.6030, L503.6550 #### [facility] [address] [place], [address] GAP 11 Normal 5-15 [facility] Comment on above: Performed By: #### L 100.0100, L503.6030, L503.6550 #### [facility] [address] [place], [address] GFR/1.73 sq M.predicted among non-blacks MDRD (S/P/Bld) [Vol rate/Area] 103 mL/min/{1.73_m2} Normal >60 [facility] Comment on above: Result Comment: mL/m in/1.73m2 CKD-EPI Creatinine Equation (2020) Performed By: #### L 100.0100, L503.6030, L503.6550 #### [facility] [address] [place], [address] Glucose [Mass/Vol] 114 mg/dL High 70-99 [facility] Comment on above: Performed By: #### L 100.0100, L503.6030, L503.6550 #### [facility] [address] [place], [address] Potassium [Moles/Vol] 3.6 mmol/L Normal 3.3-5.1 [facility] Comment on above: Performed By: #### L 100.0100, L503.6030, L503.6550 #### [facility] [address] [place], [address] Sodium [Moles/Vol] 139 mmol/L Normal 133-145 [facility] Comment on above: Performed By: #### L 100.0100, L503.6030, L503.6550 #### [facility] [address] [place], [address] Urea nitrogen [Mass/Vol] 14 mg/dL Normal 4-19 [facility] Comment on above: Performed By: #### L 100.0100, L503.6030, L503.6550 #### [facility] [address] [place], [address] Basophil percentageOrdered B y: Marvel Corley on 11-06-2024 Basophils/100 WBC (Bld) 0.7 % 0-1 [facility] CBC W/Diff, Automatedon 10-24 Absolute Lymph 0.63 X10 3/uL Low 0.83-4.51 [facility] Comment on above: Performed By: #### L 100.0100, L503.6030, L503.6550 #### [facility] [address] [place], [address] Absolute Neut 6.1 X10 3/uL Normal 2.0-7.7 [facility] Comment on above: Performed By: #### L 100.0100, L503.6030, L503.6550 #### [facility] [address] [place], [address] Basophils/100 WBC (Bld) 0.7 % Normal 0-1 [facility] Comment on above: Performed By: #### L 100.0100, L503.6030, L503.6550 #### [facility] [address] [place], [address] Eosinophils/100 WBC (Bld) 0.1 % Normal 0-5 [facility] Comment on above: Performed By: #### L 100.0100, L503.6030, L503.6550 #### [facility] [address] [place], [address] Erythrocyte distribution width (RBC) [Ratio] 17.1 % High 11.6-14.6 [facility] Comment on above: Performed By: #### L 100.0100, L503.6030, L503.6550 #### [facility] [address] [place], [address] Hematocrit (Bld) [Volume fraction] 25.5 % Low 37-47 [facility] Comment on above: Performed By: #### L 100.0100, L503.6030, L503.6550 #### [facility] [address] [place], [address] Hemoglobin (Bld) [Mass/Vol] 7.8 g/dL Low 12.0-15.0 [facility] Comment on above: Performed By: #### L 100.0100, L503.6030, L503.6550 #### [facility] [address], [address] IG% 0.500 Normal 0.0-0.9 [facility] Comment on above: Result Comment: IG% - Immature Granulocytes (promyelocytes, myelocytes and metamyelocytes) > 1% indicates that a LEFT SHIFT is Present. Performed By: #### L 100.0100, L503.6030, L503.6550 #### [facility] [address] [place], [address] Lymphocytes/100 WBC (Bld) 8.5 % Low 19-41 [facility] Comment on above: Performed By: #### L 100.0100, L503.6030, L503.6550 #### [facility] [address] [place], [address] MCH (RBC) [Entitic mass] 27.9 pg Normal 27.0-32.0 [facility] Comment on above: Performed By: #### L 100.0100, L503.6030, L503.6550 #### [facility] [address] [place], [address] MCHC (RBC) [Mass/Vol] 30.6 g/dL Low 32-36 [facility] Comment on above: Performed By: #### L 100.0100, L503.6030, L503.6550 #### [facility] [address] [place], [address] MCV (RBC) [Entitic vol] 91.1 fL Normal 81-99 [facility] Comment on above: Performed By: #### L 100.0100, L503.6030, L503.6550 #### [facility] [address] [place], [address] Monocytes/100 WBC (Bld) 7.9 % Normal 0-10 [facility] Comment on above: Performed By: #### L 100.0100, L503.6030, L503.6550 #### [facility] [address] [place], [address] Neutrophils/100 WBC (Bld) 82.3 % High 47-70 [facility] Comment on above: Performed By: #### L 100.0100, L503.6030, L503.6550 #### [facility] [address] [place], [address] Nucleated RBC (Bld) [#/Vol] 0 10*3/uL Normal 0-5 [facility] Comment on above: Performed By: #### L 100.0100, L503.6030, L503.6550 #### [facility] [address] [place], [address] Platelet mean volume (Bld) [Entitic vol] 12.3 fL High 6.2-12.0 [facility] Comment on above: Performed By: #### L 100.0100, L503.6030, L503.6550 #### [facility] [address] [place], [address] Platelets (Bld) [#/Vol] 284 10*3/uL Normal 150-450 [facility] Comment on above: Performed By: #### L 100.0100, L503.6030, L503.6550 #### [facility] [address] [place], [address] RBC (Bld) [#/Vol] 2.80 10*6/uL Low 4.2-5.4 [facility] Comment on above: Performed By: #### L 100.0100, L503.6030, L503.6550 #### [facility] [address] [place], [address] RDW SD 49.8 fl High 35.1-43.9 [facility] Comment on above: Performed By: #### L 100.0100, L503.6030, L503.6550 #### [facility] [address] [place], [address] WBC (Bld) [#/Vol] 7.4 10*3/uL Normal 4.4-11.0 [facility] Comment on above: Performed By: #### L 100.0100, L503.6030, L503.6550 #### [facility] [address] [place], [address] Carbon dioxide, total [Moles /volume] in Central venous bloodOrdered By: Marvel Corley on 11-06-2024 CO2 [Moles/Vol] 20.6 mmol/L Low 21.0-32.0 [facility] Chloride assayOrdered By: Luca Corley on 11-06-2024 Chloride [Moles/Vol] 108 mmol/L 98-108 [facility] Emergency Department Summary on 11-06-2024 Emergency Department Summary [facility] Medical Records Department [address] [place] [address] Emergency Department Summary 11/06/24 MR#: [id number] Acct: [id number] Name: GALINDO JOHNSTON Rep #: [id number] : 1980 44 From: Marvel Corley MD PCP: Dr. Inocencio Frye MD Status:REG ER Location: ED HPI History of Present Illness Chief Complaint: Weakness Informant: patient Onset/Context/Timing Onset: Weeks Context: Gradual Onset Timing: Continuous Current Severity: Mild Maximum Severity: Mild Narrative Narrative: 44-year-old female has been having heavy vaginal bleeding for months. Is set up to have a hysterectomy done by Dr. Roxanna Cody this coming Thursday. Patient states she has been having more bleeding. She is on no blood thinners. And just feels weak. Prior transfusion of several units of blood. And iron. G3, P2 Ab1 with having a miscarriage. Prior similar symptoms: Yes Recent Illness/Hospitalization : No PFSH PFSH Medical History delivery delivered Wears glasses Menorrhagia, premenopausal Iron deficiency anemia Anxiety Former smoker Home Medications ???Medication ???Instructions ???Recorded ???Last Taken ???Type cholecalciferol (vitamin D3) 100 100 mcg PO DAILY vitamin 08/30/24 Unknown History mcg (4,000 unit) capsule escitalopram oxalate 20 mg tablet 20 mg PO DAILY mental health 10/17 Unknown History ferrous gluconate 324 mg (38 mg 324 mg PO DAILY 30 days #30 tabs 0 08/31/24 Unknown Rx iron) tablet ascorbate calcium (vitamin C) 500 500 mg PO QDAY 09/09/24 Unknown H istory mg tablet levocetirizine 5 mg tablet 5 mg PO QDAY 09/09/24 Unknown Hist ory megestrol 40 mg tablet 40 mg PO QDAY #30 tabs 10/04/24 Un known Rx ropinirole 1 mg tablet 1 mg PO QHS 10/25/24 Unknown Histo ry Allergy/AdvReac Type Severity Reaction Status Date / Time codeine Allergy PT UNSURE Verified 11/06/24 16:09 OF REACTION Surgical History Tubal ligation status H/O wisdom tooth extraction Social History Smoking Status: Former smoker ROS ROS ED ROS Narrative Heavier than normal vaginal bleeding. Generalized weakness. Constitutional Constitutional ED: Denies chills or fever(s) Eyes Eyes: Denies blurry vision ENT ENT ED: Denies ear pain Cardiovascular Cardiovascular: Denies chest pain Respiratory/Chest Respiratory/Chest: Denies cough or dyspnea Gastrointestinal Gastrointestinal: Denies abdominal pain Genitourinary Genitourinary ED: Denies dysuria or hematuria Musculoskeletal Musculoskeletal: Denies arthralgias or back pain Integumentary Denies abscess or Abrasions Neurologic Neurologic: Denies headache(s) Psychiatric Psychiatric: Denies anxiety or depression Endocrine Endocrinology: Denies cold intolerance Hematologic/Lymphatic Hematologic/Lymphatic: Reports anemia Allergic/Immunologic Allergic/Immunologic ED: Denies mouth swelling, tongue swelling or urticaria EXAM Physical Exam Narrative Exam Narrative: well appearing 44-year-old female. Vital signs stable afebrile. H EENT exam pupils round react light. Moist extremities. Neck nontender no JVD. Lungs clear to auscultation bilaterally. Heart regular rhythm rate about 95 no murmur. Chest wall ribs nontender. Abdomen soft nontender. Moving all 4 extremities. Nontender no edema. Normal strength. Normal range of motion. Back nontender. Neurologically patient is awake alert. Answering questions following commands. Does appear to be mildly pale. Const Vital Signs: 11/06/24 16:07 11/06/24 16:46 11/06/24 17:06 Temperature 97.4 F L Temperature Source Oral Pulse Rate 94 84 Respiratory Rate 18 18 Respiratory Effort Normal Non-Labored Respiratory Pattern Normal Blood Pressure 108/63 115/66 Blood Pressure Mean 78 82 Pulse Ox 96 100 Oxygen Delivery Method Room Air Room Air Positive well developed; Negative for cachectic, contractures or unkempt General Appearance ED: well developed, NAD and pallor; Negative for unkempt, cachectic, contractures, cyanotic or diaphoretic Nutritional Appearance: Negative for cachectic HEENT Reports moist mucous membranes Eyes PERRL and EOMs intact bilaterally General Eye ED: Yes pale conjunctiva Neck no lymphadenopathy, supple and no JVD Chest Wall inspection of chest normal and palpation of chest normal Resp normal respiratory effort and clear to auscultation bilaterally Cardio regular rate, regular rhythm, S1 normal heart sound, S2 normal heart sound and no murmurs GI normal to inspection, nondistended, normoactive bowel sounds, non-tender, non-distended and no masses Auscultation: normoactive bowel sounds Palpation: soft; Negative (more content not included)... Normal [facility] Eosinophil percentageOrdered By: Marvel Corley on 11-06-2024 Eosinophils/100 WBC (Bld) 0.1 % 0-5 [facility] Erythrocyte distribution wid th ratioOrdered By: Marvel Corley on 11-06-2024 Erythrocyte distribution width (RBC) [Ratio] 17.1 % High 11.6-14.6 [facility] Erythrocyte distribution wid th standard deviationOrdered By: Marvel Corley on 11-06-2024 Erythrocyte distribution width (RBC) [Ratio] 49.8 fl High 35.1-43.9 [facility] Glomerular filtration rate ( GFR) estimation/1.73 sq m using serum, plasma, or whole bOrdered By: Marvel Corley on 11-06-2024 GFR/1.73 sq M.predicted among non-blacks MDRD (S/P/Bld) [Vol rate/Area] 103 mL/min/{1.73_m2} >60 [facility] Comment on above: mL/min/1.73m2 CKD-EP I Creatinine Equation (2020) Hematocrit Auto (Bld) [Volum e fraction]Ordered By: Marvel Corley on 11-06-2024 Hematocrit (Bld) [Volume fraction] 25.5 % Low 37-47 [facility] Hemoglobin measurementOrdere d By: Marvel Corley on 11-06-2024 Hemoglobin (Bld) [Mass/Vol] 7.8 g/dL Low 12.0-15.0 [facility] Immature granulocytes/100 WB C Auto (Bld)Ordered By: Marvel Corley on 11-06-2024 Immature granulocytes/100 WBC (Bld) 0.500 % 0.0-0.9 [facility] Comment on above: IG% - Immature Granu locytes (promyelocytes, myelocytes and metamyelocytes) > 1% indicates that a LEFT SHIFT is Present. MCV (mean corpuscular volume ) determinationOrdered By: Marvel Corley on 11-06-2024 MCV (RBC) [Entitic vol] 91.1 fL 81-99 [facility] Mean corpuscular hemoglobin (MCH) determinationOrdered By: Marvel Corley on 11-06-2024 MCH (RBC) [Entitic mass] 27.9 pg 27.0-32.0 [facility] Mean corpuscular hemoglobin concentration (MCHC) determinationOrdered By: Marvel Corley on 11-06-2024 MCHC (RBC) [Mass/Vol] 30.6 g/dL Low 32-36 [facility] Mean platelet volume determi nationOrdered By: Marvel Corley on 11-06-2024 Platelet mean volume (Bld) [Entitic vol] 12.3 fL High 6.2-12.0 [facility] Monocyte percentageOrdered B y: Marvel Corley on 11-06-2024 Monocytes/100 WBC (Bld) 7.9 % 0-10 [facility] Neutrophil percentageOrdered By: Marvel Corley on 11-06-2024 Neutrophils/100 WBC (Bld) 82.3 % High 47-70 [facility] Nucleated red blood cell per centageOrdered By: Marvel Corley on 11-06-2024 Nucleated RBC/100 WBC (Bld) [Ratio] 0 % 0-5 [facility] Platelet countOrdered By: Luca Corley on 11-06-2024 Platelets (Bld) [#/Vol] 284 10*3/uL 150-450 [facility] Potassium measurement (mass/ volume)Ordered By: Marvel Corley on 11-06-2024 Potassium (Unsp spec) [Mass/Vol] 3.6 mmol/L 3.3-5.1 [facility] ,Serum,hCG Quali.on 11-06-2024 HCG, SERUM QUAL Negative Normal [facility] Comment on above: Performed By: #### L 100.0100, L503.6030, L503.6550 #### [facility] [address] [place] [address], [address] RBC Auto (Bld) [#/Vol]Ordere d By: Marvel Corley on 11-06-2024 RBC (Bld) [#/Vol] 2.80 10*6/uL Low 4.2-5.4 [facility] Serum beta-hCG test, qualita tiveOrdered By: Marvel Corley on 11-06-2024 Beta HCG ( test) Ql Negative [facility] Serum creatinine measurement (mass/volume)Ordered By: Marvel Corley on 11-06-2024 Creatinine [Mass/Vol] 0.73 mg/dL 0.70-1.20 [facility] Serum glucose measurement (m ass/volume)Ordered By: Marvel Corley on 11-06-2024 Glucose [Mass/Vol] 114 mg/dL High 70-99 [facility] Serum or plasma calcium mao urement (mass/volume)Ordered By: Marvel Corley on 11-06-2024 Calcium [Mass/Vol] 8.8 mg/dL 7.6-11.0 [facility] Serum or plasma urea nitroge n measurement (mass/volume)Ordered By: Marvel Corley on 11-06-2024 Urea nitrogen [Mass/Vol] 14 mg/dL 4-19 [facility] Sodium levelOrdered By: Marvel Corley on 11-06-2024 Sodium [Moles/Vol] 139 mmol/L 133-145 [facility] Type AND Screenon 11-06-2024 ABO and Rh group Nom (Bld) Blood group O Rh(D) positive Normal [facility] Comment on above: Order Comment: A Performed By: #### L 100.0100, L503.6030, L503.6550 #### [facility] [address] [place], [place], [id number] White blood cell (WBC) count Ordered By: Marvel Corley on 11-06-2024 WBC (Bld) [#/Vol] 7.4 10*3/uL 4.4-11.0 [facility] Activated partial thrombopla stin time (aPTT) in platelet poor plasma by coagulation aOrdered By: Kana Lopez on 10-25-2024 aPTT Coag (PPP) [Time] 26.9 s 24.1-36.2 [facility] CBC W/Diff, Automatedon Absolute Lymph 1.17 X10 3/uL Normal 0.83-4.51 [facility] Comment on above: Order Comment: Comme nts: day of surgery Performed By: #### L 100.0100, L503.6030, L503.6550 #### [facility] [address] [place], [place], [id number] Absolute Neut 2.9 X10 3/uL Normal 2.0-7.7 [facility] Comment on above: Order Comment: Comme nts: day of surgery Performed By: #### L 100.0100, L503.6030, L503.6550 #### [facility] [address] [place], [address] Basophils/100 WBC (Bld) 1.5 % High 0-1 [facility] Comment on above: Order Comment: Comme nts: day of surgery Performed By: #### L 100.0100, L503.6030, L503.6550 #### [facility] [address] [place], [address] Eosinophils/100 WBC (Bld) 2.1 % Normal 0-5 [facility] Comment on above: Order Comment: Comme nts: day of surgery Performed By: #### L 100.0100, L503.6030, L503.6550 #### [facility] [address] [place], [address] Erythrocyte distribution width (RBC) [Ratio] 19.4 % High 11.6-14.6 [facility] Comment on above: Order Comment: Comme nts: day of surgery Performed By: #### L 100.0100, L503.6030, L503.6550 #### [facility] [address] [place], [address] Hematocrit (Bld) [Volume fraction] 34.8 % Low 37-47 [facility] Comment on above: Order Comment: Comme nts: day of surgery Performed By: #### L 100.0100, L503.6030, L503.6550 #### [facility] [address] [place], [address] Hemoglobin (Bld) [Mass/Vol] 10.6 g/dL Low 12.0-15.0 [facility] Comment on above: Order Comment: Comme nts: day of surgery Performed By: #### L 100.0100, L503.6030, L503.6550 #### [facility] [address] [place], [address] IG% 0.400 Normal 0.0-0.9 [facility] Comment on above: Order Comment: Comme nts: day of surgery Result Comment: IG% - Immature Granulocytes (promyelocytes, myelocytes and metamyelocytes) > 1% indicates that a LEFT SHIFT is Present. Performed By: #### L 100.0100, L503.6030, L503.6550 #### [facility] [address] [place], [address] Lymphocytes/100 WBC (Bld) 24.6 % Normal 19-41 [facility] Comment on above: Order Comment: Comme nts: day of surgery Performed By: #### L 100.0100, L503.6030, L503.6550 #### [facility] [address] [place], [address] MCH (RBC) [Entitic mass] 26.9 pg Low 27.0-32.0 [facility] Comment on above: Order Comment: Comme nts: day of surgery Performed By: #### L 100.0100, L503.6030, L503.6550 #### [facility] [address] [place], [address] MCHC (RBC) [Mass/Vol] 30.5 g/dL Low 32-36 [facility] Comment on above: Order Comment: Comme nts: day of surgery Performed By: #### L 100.0100, L503.6030, L503.6550 #### [facility] [address] [place], [address] MCV (RBC) [Entitic vol] 88.3 fL Normal 81-99 [facility] Comment on above: Order Comment: Comme nts: day of surgery Performed By: #### L 100.0100, L503.6030, L503.6550 #### [facility] [address] [place], [address] Monocytes/100 WBC (Bld) 10.9 % High 0-10 [facility] Comment on above: Order Comment: Comme nts: day of surgery Performed By: #### L 100.0100, L503.6030, L503.6550 #### [facility] [address] [place], [address] Neutrophils/100 WBC (Bld) 60.5 % Normal 47-70 [facility] Comment on above: Order Comment: Comme nts: day of surgery Performed By: #### L 100.0100, L503.6030, L503.6550 #### [facility] [address] [place], [address] Nucleated RBC (Bld) [#/Vol] 0 10*3/uL Normal 0-5 [facility] Comment on above: Order Comment: Comme nts: day of surgery Performed By: #### L 100.0100, L503.6030, L503.6550 #### [facility] [address] [place], [address] Platelet mean volume (Bld) [Entitic vol] 11.8 fL Normal 6.2-12.0 [facility] Comment on above: Order Comment: Comme nts: day of surgery Performed By: #### L 100.0100, L503.6030, L503.6550 #### [facility] [address] [place], [address] Platelets (Bld) [#/Vol] 241 10*3/uL Normal 150-450 [facility] Comment on above: Order Comment: Comme nts: day of surgery Performed By: #### L 100.0100, L503.6030, L503.6550 #### [facility] [address] [place], [address] RBC (Bld) [#/Vol] 3.94 10*6/uL Low 4.2-5.4 [facility] Comment on above: Order Comment: Comme nts: day of surgery Performed By: #### L 100.0100, L503.6030, L503.6550 #### [facility] [address] [place], [address] RDW SD 50.4 fl High 35.1-43.9 [facility] Comment on above: Order Comment: Comme nts: day of surgery Performed By: #### L 100.0100, L503.6030, L503.6550 #### [facility] [address] [place], [address] WBC (Bld) [#/Vol] 4.8 10*3/uL Normal 4.4-11.0 [facility] Comment on above: Order Comment: Comme nts: day of surgery Performed By: #### L 100.0100, L503.6030, L503.6550 #### [facility] [address] [place], [address] International normalized rat io (INR) calculationOrdered By: Kana Lopez on 10-25-2024 INR Coag (Bld) [Relative time] 1.0 {INR} [facility] Magnesiumon 10-25-2024 Magnesium [Mass/Vol] 2.1 mg/dL Normal 1.5-2.2 [facility] Comment on above: Performed By: #### L 501.5200, L300.4310, L300.3900 ####[facility] [address] [place], [address] Magnesium measurement (mass/ volume)Ordered By: Kana Lopez on 10-25-2024 Magnesium (Unsp spec) [Mass/Vol] 2.1 mg/dL 1.5-2.2 [facility] Partial Thromboplast Timeon 10-25-2024 aPTT Coag (Bld) [Time] 26.9 s Normal 24.1-36.2 [facility] Comment on above: Performed By: #### L 501.5200, L300.4310, L300.3900 ####[facility] [address] [place], [address] Prothrombin Time w/INRon INR Coag (PPP) [Relative time] 1.0 {INR} Normal [facility] Comment on above: Performed By: #### L 501.5200, L300.4310, L300.3900 ####[facility] [address] [place], [address] PT Coag (PPP) [Time] 13.3 s Normal 11.7-14.9 [facility] Comment on above: Performed By: #### L 501.5200, L300.4310, L300.3900 ####[facility] [address] [place], [address] Prothrombin timeOrdered By: Kana Lopez on 10-25-2024 PT Coag (PPP) [Time] 13.3 s 11.7-14.9 [facility] Type AND Screen - PAT ONLYon 10-25-2024 Ab SCREEN GEL Negative Normal [facility] Comment on above: Order Comment: Surge ry Date: 11/08/24Reason for Laboratory Test [id number] of surgerySHYSTERECTOMY Performed By: #### L 100.0100, L503.6030, L503.6550 #### [facility] [address] [place], [address] CBC-Complete Blood Cnt No Di ffon 10-21-2024 Erythrocyte distribution width (RBC) [Ratio] 20.8 % High 11.6-14.6 [facility] Comment on above: Performed By: #### L 100.0100, L503.6030, L503.6550 #### [facility] [address] [place], [address] Hematocrit (Bld) [Volume fraction] 36.2 % Low 37-47 [facility] Comment on above: Performed By: #### L 100.0100, L503.6030, L503.6550 #### [facility] [address] [place], [address] Hemoglobin (Bld) [Mass/Vol] 10.8 g/dL Low 12.0-15.0 [facility] Comment on above: Performed By: #### L 100.0100, L503.6030, L503.6550 #### [facility] [address] [place], [address] MCH (RBC) [Entitic mass] 26.3 pg Low 27.0-32.0 [facility] Comment on above: Performed By: #### L 100.0100, L503.6030, L503.6550 #### [facility] [address] [place], [address] MCHC (RBC) [Mass/Vol] 29.8 g/dL Low 32-36 [facility] Comment on above: Performed By: #### L 100.0100, L503.6030, L503.6550 #### [facility] [address] [place], [address] MCV (RBC) [Entitic vol] 88.1 fL Normal 81-99 [facility] Comment on above: Performed By: #### L 100.0100, L503.6030, L503.6550 #### [facility] [address] [place], [address] Platelets (Bld) [#/Vol] 263 10*3/uL Normal 150-450 [facility] Comment on above: Performed By: #### L 100.0100, L503.6030, L503.6550 #### [facility] [address] [place], [address] RBC (Bld) [#/Vol] 4.11 10*6/uL Low 4.2-5.4 [facility] Comment on above: Performed By: #### L 100.0100, L503.6030, L503.6550 #### [facility] [address] [place], [address] RDW SD 69.5 fl High 35.1-43.9 [facility] Comment on above: Performed By: #### L 100.0100, L503.6030, L503.6550 #### [facility] [address] [place], [address] WBC (Bld) [#/Vol] 3.6 10*3/uL Low 4.4-11.0 [facility] Comment on above: Performed By: #### L 100.0100, L503.6030, L503.6550 #### [facility] [address] [place], [address] Erythrocyte distribution wid th ratioOrdered By: Roxanna Thurman on 10-21-2024 Erythrocyte distribution width (RBC) [Ratio] 20.8 % High 11.6-14.6 [facility] Erythrocyte distribution wid th standard deviationOrdered By: Roxanna Thurman on 10-21-2024 Erythrocyte distribution width (RBC) [Ratio] 69.5 fl High 35.1-43.9 [facility] Hematocrit Auto (Bld) [Volum e fraction]Ordered By: Roxanna Thurman on 10-21-2024 Hematocrit (Bld) [Volume fraction] 36.2 % Low 37-47 [facility] Hemoglobin measurementOrdere d By: Roxanna Thurman on 10-21-2024 Hemoglobin (Bld) [Mass/Vol] 10.8 g/dL Low 12.0-15.0 [facility] MCV (mean corpuscular volume ) determinationOrdered By: Roxanna Thurman on 10-21-2024 MCV (RBC) [Entitic vol] 88.1 fL 81-99 [facility] Mean corpuscular hemoglobin (MCH) determinationOrdered By: Roxanna Thurman on 10-21-2024 MCH (RBC) [Entitic mass] 26.3 pg Low 27.0-32.0 [facility] Mean corpuscular hemoglobin concentration (MCHC) determinationOrdered By: Roxanna Thurman on 10-21-2024 MCHC (RBC) [Mass/Vol] 29.8 g/dL Low 32-36 [facility] Supervisor Rides Office Visit Reporton 10-21-2024 Supervisor Rides Office Visit Report [facility] [address], [address] [place] [address] OFFICE VISIT Date of Service: 10/21/24 MR#: [id number] Acct: [id number] Name: GALINDO JOHNSTON Rep #: [id number] : 1980 Provider: Dr. Roxanna Ramos DO Age/Sex: 44/F Location: [facility] Status: Signed Intake Vital Signs 09/09/24 13:21 10/21/24 10:06 Height 5 ft 4 in 5 ft 4 in Weight: 142 lb 3 oz BMI 24.4 BP 138/79 H Intake Visit Reasons: TRH BS Cysto Boat Fueler Required: No Is patient in pain?: No [...] menopausal: No Patient : No : No 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 She stated [...] 1328 Date (more content not included)... Normal [facility] Platelet countOrdered By: Luca Thurman on 10-21-2024 Platelets (Bld) [#/Vol] 263 10*3/uL 150-450 [facility] RBC Auto (Bld) [#/Vol]Ordere d By: Roxanna Thurman on 10-21-2024 RBC (Bld) [#/Vol] 4.11 10*6/uL Low 4.2-5.4 [facility] White blood cell (WBC) count Ordered By: Roxanna Thurman on 10-21-2024 WBC (Bld) [#/Vol] 3.6 10*3/uL Low 4.4-11.0 [facility] Electrocardiogram reportOrde red By: Jacob Donaldson on 10-12-2024 EKG study [facility] [address] [place] [address] 12 Lead EKG 10/11/24 1011 MR#: [id number] Acct: [id number] Name: GALINDO JOHNSTON Rep #:[id number] : 1980 44 From: Jacob Donaldson MD Attending Dr: Dr. Roxanna King DO Status: REG CLI Ordering Dr: Roxanna King DO D ate: 10/11/24 Location: PSN Sex: F C Admitted: Test Reason : PREOP Blood Pressure : */* mmHG Vent. Rate : 70 BPM Atrial Rate : 70 BPM P-R Int : 120 ms QRS Dur : 76 ms QT Int : 392 ms P-R-T Axes : 82 76 47 degrees QTcB Int : 423 ms Normal sinus rhythm Normal ECG Confirmed by JACOB DONALDSON MD ([id number]), editor dictionary BERNIE THORNTON ([id number]) on 10/12/2024 9:33:44 AM Referred By: Roxanna King Confirmed By: JACOB DONALDSON MD 10/12/24 0933 Date _ Jacob Donaldson MD CC: Dr. Roxanna King DO; Dr. Inocencio Frye MD ~ Signed [facility] Other Phone: 12 Lead EKGon 10-11-2024 12 Lead EKG [facility] [address] [place] [address] 12 Lead EKG 10/11/24 1011 MR#: [id number] Acct: [id number] Name: GALINDO JOHNSTON Rep #: [id number] : 1980 44 From: Jacob Donaldson MD Attending Dr: Dr. Roxanna King DO Statu s: REG CLI Ordering Dr: Roxanna King DO Date: 5 Location: PSN Sex: F C Admitted: Test Reason : PREOP Blood Pressure : */* mmHG Vent. Rate : 70 BPM Atrial Rate : 70 BPM P-R Int : 120 ms QRS Dur : 76 ms QT Int : 392 ms P-R-T Axes : 82 76 47 degrees QTcB Int : 423 ms Normal sinus rhythm Normal ECG Confirmed by JACOB DONALDSON MD ([id number]), editor dictionary BERNIE THORNTON ([id number]) on 10/12/2024 9:33:44 AM Referred By: Roxanna King Confirmed By: JACOB DONALDSON MD 10/12/24 0933 Date Jacob Donaldson MD CC: Dr. Roxanna King DO; Dr. Inocencio Frye MD Signed Normal [facility] Laboratory - Chemistry and C hemistry - challengeOrdered By: Roxanna Thurman on 09-09-2024 HCG ( test) Ql (U) Negative [facility] Supervisor Rides Office Visit Reporton 09-09-2024 Supervisor Rides Office Visit Report [facility] [address], [address] [place] [address] OFFICE VISIT Date of Service: 09/09/24 MR#: [id number] Acct: [id number] Name: GALINDO JOHNSTON Rep #: [id number] : 1980 Provider: Dr. Roxanna Ramos DO Age/Sex: 44/F Location: [facility] Status: Signed Intake Vital Signs 08/30/24 20:12 09/09/24 13:21 09/09/24 13:21 Height 5 ft 4 in 5 ft 4 in 5 ft 4 in Weight: 141 lb BMI 24.2 BP 128/67 H Intake Visit Reasons: EMB and discuss Robotic Hysterectomy Chief Complaint: EMB Boat Fueler Required: No Is patient in pain?: No [...] Fibroid uterus D25.9 CPT Codes Endometrial Biopsy (06511) Assessment and Plan Assessment and Plan (1) [...] results. 09/09/24 1401 Date Roxanna King DO [facility] Signature: Date (if applicable) CC: Normal [facility] Surgery Specimen Level Tatiana 09-09-2024 Surgery Specimen Level IV Patient Age/Sex Location Account Attending Physician GALINDO JOHNSTON 44/F LABSPEC [id number] Dr. Roxanna King, Charles Specimen: [id number] Received: 09/09/24 Status: SENTHIL Drake Num: [id number] Spec Type: ENDOM BX/C Subm Dr: Dr. Roxanna King, DO HEADER OPERATION: Endometrial biopsy PRE-OP DIAGNOSIS: [...] tissue fragments. Entirely submitted in 1 cassette. NM 09/12/2024 CPT:60883 Patient Age/Sex Location Account Attending Physician PRESTONGALINDO MUÑOZICE 44/F LABSPEC [id number] Charles Coe Signed (signature on file) Dr. Silvia Carmichael MD 09/14/24 1437 Normal [facility] Comment on above: Performed By: #### L 100.0100, L503.6030, L503.6550 #### [facility] [address] [place], [place], [address] Absolute lymphocyte countOrd ered By: Inocencio Frye on 09-06-2024 Lymphocytes Auto (Unsp spec) [#/Vol] 1.09 10*3/uL 0.83-4.51 [facility] Absolute neutrophil countOrd ered By: Inocencio Frye on 09-06-2024 Neutrophils (Bld) [#/Vol] 3.9 10*3/uL 2.0-7.7 [facility] Automated lymphocyte count a s percentage of total leukocytesOrdered By: Inocencio Frye on 09-06-2024 Lymphocytes/100 WBC Auto (Unsp spec) 19.1 % 19-41 [facility] Basophil percentageOrdered B y: Inocencio Frye on 09-06-2024 Basophils/100 WBC (Bld) 1.9 % High 0-1 [facility] Blood polychromasia detectio n by light microscopyOrdered By: Inocencio Frye on 09-06-2024 Polychromasia LM Ql (Bld) 1+ [facility] CBC W/Diff, Automatedon 08-23 OVALOCYTE 1+ Normal [facility] Comment on above: Order Comment: Order Date: 09/06/24Order Info: 018- - CBCD Performed By: #### L 100.0100, L503.6030, L503.6550 #### [facility] [address] [place], [address] Anisocytosis Ql (Bld) 1+ Normal [facility] Comment on above: Order Comment: Order Date: 09/06/24Order Info: 018- - CBCD Performed By: #### L 100.0100, L503.6030, L503.6550 #### [facility] [address] [place], [address] MACROCYTOSIS 1+ Normal [facility] Comment on above: Order Comment: Order Date: 09/06/24Order Info: 018- - CBCD Performed By: #### L 100.0100, L503.6030, L503.6550 #### [facility] [address] [place], [address] PLT EST A Normal ADEQ [facility] Comment on above: Order Comment: Order Date: 09/06/24Order Info: 018- - CBCD Performed By: #### L 100.0100, L503.6030, L503.6550 #### [facility] [address] [place], [address] POLYCHROMASIA 1+ Normal [facility] Comment on above: Order Comment: Order Date: 09/06/24Order Info: 0184-1 - CBCD Performed By: #### L 100.0100, L503.6030, L503.6550 #### [facility] [address] [place], [address] Eosinophil percentageOrdered By: Inocencio Frye on 09-06-2024 Eosinophils/100 WBC (Bld) 3.0 % 0-5 [facility] Erythrocyte distribution wid th ratioOrdered By: Inocencio Frye on 09-06-2024 Erythrocyte distribution width (RBC) [Ratio] 27.1 % High 11.6-14.6 [facility] Erythrocyte distribution wid th standard deviationOrdered By: Inocencio Frye on 09-06-2024 Erythrocyte distribution width (RBC) [Ratio] 61.4 fl High 35.1-43.9 [facility] Hematocrit Auto (Bld) [Volum e fraction]Ordered By: Inocencio Frye on 09-06-2024 Hematocrit (Bld) [Volume fraction] 33.0 % Low 37-47 [facility] Hemoglobin measurementOrdere d By: Inocencio Frye on 09-06-2024 Hemoglobin (Bld) [Mass/Vol] 9.4 g/dL Low 12.0-15.0 [facility] Immature granulocytes/100 WB C Auto (Bld)Ordered By: Inocencio Frye on 09-06-2024 Immature granulocytes/100 WBC (Bld) 0.400 % 0.0-0.9 [facility] Comment on above: IG% - Immature Granu locytes (promyelocytes, myelocytes and metamyelocytes) > 1% indicates that a LEFT SHIFT is Present. Laboratory - Hematology and Cell countsOrdered By: Inocencio Frye on 09-06-2024 Anisocytosis Ql (Bld) 1+ [facility] MCV (mean corpuscular volume ) determinationOrdered By: Inocencio Frye on 09-06-2024 MCV (RBC) [Entitic vol] 74.7 fL Low 81-99 [facility] Macrocytes detectionOrdered By: Inocencio Frye on 09-06-2024 Macrocytes Ql (Bld) 1+ [facility] Mean corpuscular hemoglobin (MCH) determinationOrdered By: Inocencio Frye on 09-06-2024 MCH (RBC) [Entitic mass] 21.3 pg Low 27.0-32.0 [facility] Mean corpuscular hemoglobin concentration (MCHC) determinationOrdered By: Inocencio Frye on 09-06-2024 MCHC (RBC) [Mass/Vol] 28.5 g/dL Low 32-36 [facility] Monocyte percentageOrdered B y: Inocencio Frye on 09-06-2024 Monocytes/100 WBC (Bld) 7.5 % 0-10 [facility] Neutrophil percentageOrdered By: Inocencio Frye on 09-06-2024 Neutrophils/100 WBC (Bld) 68.1 % 47-70 [facility] Nucleated red blood cell per centageOrdered By: Inocencio Frye on 09-06-2024 Nucleated RBC/100 WBC (Bld) [Ratio] 0 % 0-5 [facility] Ovalocyte detectionOrdered B y: Inocencio Frye on 09-06-2024 Ovalocytes LM Ql (Bld) 1+ [facility] Platelet countOrdered By: Chacha Frye on 09-06-2024 Platelets (Bld) [#/Vol] 235 10*3/uL 150-450 [facility] Platelet estimateOrdered By: Inocencio Frye on 09-06-2024 Platelets LM Ql (Bld) A ADEQ [facility] RBC Auto (Bld) [#/Vol]Ordere d By: Inocencio Frye on 09-06-2024 RBC (Bld) [#/Vol] 4.42 10*6/uL 4.2-5.4 [facility] White blood cell (WBC) count Ordered By: Inocencio Frye on 09-06-2024 WBC (Bld) [#/Vol] 5.7 10*3/uL 4.4-11.0 [facility] Absolute lymphocyte countOrd ered By: Johnny Zamora on 08-31-2024 Lymphocytes Auto (Unsp spec) [#/Vol] 0.66 10*3/uL Low 0.83-4.51 [facility] Absolute neutrophil countOrd ered By: Johnny Zamora on 08-31-2024 Neutrophils (Bld) [#/Vol] 2.8 10*3/uL 2.0-7.7 [facility] Anion gap in Serum or Plasma Ordered By: Johnny Zamora on 08-31-2024 Anion gap [Moles/Vol] 11 mmol/L 5-15 [facility] Automated lymphocyte count a s percentage of total leukocytesOrdered By: Johnny Zamora on 08-31-2024 Lymphocytes/100 WBC Auto (Unsp spec) 16.0 % Low 19-41 [facility] BUN/creatinine ratioOrdered By: Johnny Zamora on 08-31-2024 Urea nitrogen/Creatinine [Mass ratio] 7.0 mg/mg Low 10-20 [facility] Basic Metabolic Profile (BMP )on 08-31-2024 BUN/CRE 7.0 RATIO Low 10- [facility] Comment on above: Performed By: #### L 100.0100, L503.6030, L503.6550 #### [facility] [address] [place], [address] Calcium [Mass/Vol] 8.8 mg/dL Normal 7.6-11.0 [facility] Comment on above: Performed By: #### L 100.0100, L503.6030, L503.6550 #### [facility] [address] [place], [address] Chloride [Moles/Vol] 108 mmol/L Normal 98-108 [facility] Comment on above: Performed By: #### L 100.0100, L503.6030, L503.6550 #### [facility] [address] [place], [address] CO2 [Moles/Vol] 20.5 mmol/L Low 21.0-32.0 [facility] Comment on above: Performed By: #### L 100.0100, L503.6030, L503.6550 #### [facility] [address] [place], [address] Creatinine [Mass/Vol] 0.62 mg/dL Low 0.70-1.20 [facility] Comment on above: Performed By: #### L 100.0100, L503.6030, L503.6550 #### [facility] [address] [place], [address] ECRCL 106.00 ml/min Normal 50-250 [facility] Comment on above: Performed By: #### L 100.0100, L503.6030, L503.6550 #### [facility] [address] [place], [address] GAP 11 Normal 5-15 [facility] Comment on above: Performed By: #### L 100.0100, L503.6030, L503.6550 #### [facility] [address] [place], [address] GFR/1.73 sq M.predicted among non-blacks MDRD (S/P/Bld) [Vol rate/Area] 111 mL/min/{1.73_m2} Normal >60 [facility] Comment on above: Result Comment: mL/m in/1.73m2 CKD-EPI Creatinine Equation (2020) Performed By: #### L 100.0100, L503.6030, L503.6550 #### [facility] [address] [place], [address] Glucose [Mass/Vol] 99 mg/dL Normal 70-99 [facility] Comment on above: Performed By: #### L 100.0100, L503.6030, L503.6550 #### [facility] [address] [place], [address] Potassium [Moles/Vol] 3.8 mmol/L Normal 3.3-5.1 [facility] Comment on above: Performed By: #### L 100.0100, L503.6030, L503.6550 #### [facility] [address] [place], [address] Sodium [Moles/Vol] 139 mmol/L Normal 133-145 [facility] Comment on above: Performed By: #### L 100.0100, L503.6030, L503.6550 #### [facility] [address] [place], [address] Urea nitrogen [Mass/Vol] 4 mg/dL Normal 4-19 [facility] Comment on above: Performed By: #### L 100.0100, L503.6030, L503.6550 #### [facility] [address] [place], [address] Basophil percentageOrdered B y: Johnny Zamora on 08-31-2024 Basophils/100 WBC (Bld) 1.2 % High 0-1 [facility] CBC W/Diff, Automatedon Anisocytosis Ql (Bld) 2+ Normal [facility] Comment on above: Performed By: #### L 100.0100, L503.6030, L503.6550 #### [facility] [address] [place], [place], [address] Carbon dioxide, total [Moles /volume] in Central venous bloodOrdered By: Johnny Zamora on 08-31-2024 CO2 [Moles/Vol] 20.5 mmol/L Low 21.0-32.0 [facility] Chloride assayOrdered By: Zonia Zamora on 08-31-2024 Chloride [Moles/Vol] 108 mmol/L 98-108 [facility] Consultation - OB/GYNon Consultation - HOG ROOM SUPERVISOR [facility] Medical Records Department [address] [place] [address] Consultation - HOG ROOM SUPERVISOR 08/31/24 0802 MR#: [id number] Acct: [id number] Name: GALINDO JOHNSTON Rep #: [id number] : 1980 44 From: Roxanna King DO PCP: Dr. Inocencio Frye MD Status:ADM ROMINA [facility] Assessment Plan (1) Menorrhagia, premenopausal: (2) Iron [...] P 2 (2 sections) who presents to [facility] for iron deficiency anemia. She states [...] past: none Was seeing Dr. Chandra at [facility] until 2021 Last pap: 2021 - [...] 91 Bloo (more content not included)... Normal [facility] Discharge Instructionon Discharge Instruction [facility] Medical Records Department [address] [place] [address] Instructions for Home/Discharge Instructions 08/31/24 1253 MR#: [id number] Acct: [id number] Name: GALINDO JOHNSTON Rep #: [id number] : 1980 44 From: Lori Conrad MD PCP: Dr. Inocencio Frye MD Status:ADM ROMINA Discharge Instructions Diet Discharge Diet: No restrictions DC O2, CPAP, BIPAP needs Home O2 Discharge instructions: No Dressing / Incision Discharge Activity: Return to Normal Activity May resume sexual activity in: - (Please defer sexual intercourse until cleared per Supervisor Rides at follow-up.) Weight Bearing Status: Weight bearing [...] Instructions / Restrictions: ADDITIONAL INSTRUCTIONS/PLAN OF CARE: --spreader operator would like you to continue medroxyprogesterone 5 [...] It sometimes can cause constipation therefore ove [id number] stool softeners may be used as well. --Please have follow-up complete blood count at follow-up with your primary care physician as noted. --spreader operator office will contact you to arrange visit so that you also may have biopsy arranged as well as plan for upcoming robotic hysterectomy. --If at any point you have onset of heavy bleeding please immediately contact the spreader operator office. Discharge Orders/Prescriptions Prescriptions: New medroxyprogesterone 5 mg tablet 5 mg PO DAILY 30 Days Qty: 30 0RF Rx Instructions: St[facility] [employer]ator would like you to call them when [...] [Med Staff - Active Staff] - (The [facility] office will contact you with a visit.) Disposition Disposition (needs filled in before D/C Order can be placed): Home, Self Care 08/31/24 1253 Lori Conrad MD CC: Dr. Roxanna King DO; Dr. Inocencio Frye MD; Dr. Johnny Zamora MD Signed Normal [facility] Eosinophil percentageOrdered By: Johnny Zamora on 08-31-2024 Eosinophils/100 WBC (Bld) 1.7 % 0-5 [facility] Erythrocyte distribution wid th ratioOrdered By: Johnny Zamora on 08-31-2024 Erythrocyte distribution width (RBC) [Ratio] 20.9 % High 11.6-14.6 [facility] Erythrocyte distribution wid th standard deviationOrdered By: Johnny Zamora on 08-31-2024 Erythrocyte distribution width (RBC) [Ratio] 52.3 fl High 35.1-43.9 [facility] Glomerular filtration rate ( GFR) estimation/1.73 sq m using serum, plasma, or whole bOrdered By: Johnny Zamora on 08-31-2024 GFR/1.73 sq M.predicted among non-blacks MDRD (S/P/Bld) [Vol rate/Area] 111 mL/min/{1.73_m2} >60 [facility] Comment on above: mL/min/1.73m2 CKD-EP I Creatinine Equation (2020) Hematocrit Auto (Bld) [Volum e fraction]Ordered By: Johnny Zamora on 08-31-2024 Hematocrit (Bld) [Volume fraction] 26.2 % Low 37-47 [facility] Hemoglobin measurementOrdere d By: Johnny Zamora on 08-31-2024 Hemoglobin (Bld) [Mass/Vol] 7.5 g/dL Low 12.0-15.0 [facility] Immature granulocytes/100 WB C Auto (Bld)Ordered By: Johnny Zamora on 08-31-2024 Immature granulocytes/100 WBC (Bld) 0.200 % 0.0-0.9 [facility] Comment on above: IG% - Immature Granu locytes (promyelocytes, myelocytes and metamyelocytes) > 1% indicates that a LEFT SHIFT is Present. Iron+Iron Binding Capacityon 08-31-2024 TIBC 514 ug/dL High 250-450 [facility] Comment on above: Order Comment: OPHELIA ZER IS DOWN THAT RUNS IRON AND TIBC Performed By: #### L 503.6030, BTS, L500.2500, L100.0100 ####[facility] [address] [place], [place], [address] Laboratory - Hematology and Cell countsOrdered By: Johnny Zamora on 08-31-2024 Anisocytosis Ql (Bld) 2+ [facility] MCV (mean corpuscular volume ) determinationOrdered By: Johnny Zamora on 08-31-2024 MCV (RBC) [Entitic vol] 69.9 fL Low 81-99 [facility] Mean corpuscular hemoglobin (MCH) determinationOrdered By: Johnny Zamora on 08-31-2024 MCH (RBC) [Entitic mass] 20.0 pg Low 27.0-32.0 [facility] Mean corpuscular hemoglobin concentration (MCHC) determinationOrdered By: Johnny Zamora on 08-31-2024 MCHC (RBC) [Mass/Vol] 28.6 g/dL Low 32-36 [facility] Comment on above: Delta: 25.5 on 08/30 Monocyte percentageOrdered B y: Johnny Zamora on 08-31-2024 Monocytes/100 WBC (Bld) 13.8 % High 0-10 [facility] Neutrophil percentageOrdered By: Johnny Zamora on 08-31-2024 Neutrophils/100 WBC (Bld) 67.1 % 47-70 [facility] Nucleated red blood cell per centageOrdered By: Johnny Zamora on 08-31-2024 Nucleated RBC/100 WBC (Bld) [Ratio] 0 % 0-5 [facility] Platelet countOrdered By: Zonia Zamora on 08-31-2024 Platelets (Bld) [#/Vol] 162 10*3/uL 150-450 [facility] Potassium measurement (mass/ volume)Ordered By: Johnny Zamora on 08-31-2024 Potassium (Unsp spec) [Mass/Vol] 3.8 mmol/L 3.3-5.1 [facility] RBC Auto (Bld) [#/Vol]Ordere d By: Johnny Zamora on 08-31-2024 RBC (Bld) [#/Vol] 3.75 10*6/uL Low 4.2-5.4 [facility] Serum creatinine measurement (mass/volume)Ordered By: Johnny Zamora on 08-31-2024 Creatinine [Mass/Vol] 0.62 mg/dL Low 0.70-1.20 [facility] Serum glucose measurement (m ass/volume)Ordered By: Johnny Zamora on 08-31-2024 Glucose [Mass/Vol] 99 mg/dL 70-99 [facility] Serum or plasma calcium mao urement (mass/volume)Ordered By: Johnny Zamora on 08-31-2024 Calcium [Mass/Vol] 8.8 mg/dL 7.6-11.0 [facility] Serum or plasma urea nitroge n measurement (mass/volume)Ordered By: Johnny Zamora on 08-31-2024 Urea nitrogen [Mass/Vol] 4 mg/dL 4-19 [facility] Sodium levelOrdered By: Sanju Zamora on 08-31-2024 Sodium [Moles/Vol] 139 mmol/L 133-145 [facility] T4 Free Directon 08-31-2024 T4 FREE DIRECT 1.10 ng/dL Normal 0.76-1.46 [facility] Comment on above: Performed By: #### L 100.0100, L503.6030, L503.6550 #### [facility] [address] [place], [address] T4 freeOrdered By: Roxanna Thurman on 08-31-2024 Free T4 [Mass/Vol] 1.10 ng/dL 0.76-1.46 [facility] TSH DL <= 0.005 mIU/L QnOrde red By: Roxanna Thurman on 08-31-2024 TSH Qn 2.870 uIU/mL 0.300-4.200 [facility] Thyroid Stim Hormone (TSH)on 08-31-2024 TSH 2.870 uIU/mL Normal 0.300-4.200 [facility] Comment on above: Performed By: #### L 100.0100, L503.6030, L503.6550 #### [facility] [address] [place], [place], [address] Transvaginal Non-on 08-31-2024 Transvaginal Non- [facility] Services [address] [place], [place] [address] Transvaginal Non- MR#: [id number] Acct: [id number] Name: GALINDO JOHNSTON Rep #: [id number] : 1980 F 44 From: Darrin godinez MD PCP: Dr. Inocencio Frye MD Status: ADM ROMINA Study: Transvaginal Non- Date of Exam: Exam# [id number] Ordering Dr: Lori Conrad MD PROCEDURE: TRANSVAGINAL [...] cm 6.5 cm subendometrial fibroid. Reading Location: [place] [address] CC: Dr. Lori Conrad MD; Dr. Inocencio Frye MD Provider Relations Representative: Signed Normal [facility] White blood cell (WBC) count Ordered By: Johnny Zamora on 08-31-2024 WBC (Bld) [#/Vol] 4.1 10*3/uL Low 4.4-11.0 [facility] Absolute lymphocyte countOrd ered By: Joselito Maldonado on 08-30-2024 Lymphocytes Auto (Unsp spec) [#/Vol] 1.12 10*3/uL 0.83-4.51 [facility] Absolute lymphocyte countOrd ered By: Inocencio Frye on 08-30-2024 Lymphocytes Auto (Unsp spec) [#/Vol] 0.93 10*3/uL 0.83-4.51 [facility] Absolute neutrophil countOrd ered By: Joselito Maldonado on 08-30-2024 Neutrophils (Bld) [#/Vol] 3.0 10*3/uL 2.0-7.7 [facility] Absolute neutrophil countOrd ered By: Inocencio Frye on 08-30-2024 Neutrophils (Bld) [#/Vol] 1.6 10*3/uL Low 2.0-7.7 [facility] Anion gap in Serum or Plasma Ordered By: Joselito Maldonado on 08-30-2024 Anion gap [Moles/Vol] 13 mmol/L 07-07 [facility] Anion gap in Serum or Plasma Ordered By: Inocencio Frye on 08-30-2024 Anion gap [Moles/Vol] 10 mmol/L 07-07 [facility] Automated lymphocyte count a s percentage of total leukocytesOrdered By: Joselito Maldonado on 08-30-2024 Lymphocytes/100 WBC Auto (Unsp spec) 22.6 % [facility] Automated lymphocyte count a s percentage of total leukocytesOrdered By: Inocencio Frye on 08-30-2024 Lymphocytes/100 WBC Auto (Unsp spec) 29.5 % [facility] BRCon 08-30-2024 RC Normal [facility] Comment on above: Result Comment: [id number] OP RC TRANSFUSED 08/30/24 1824 [id number] OP RC TRANSFUSED 08/30/24 1649 Performed By: #### L 100.0100, L503.6030, L503.6550 #### [facility] [address] [place], [address] BUN/creatinine ratioOrdered By: Joselito Maldonado on 08-30-2024 Urea nitrogen/Creatinine [Mass ratio] 12.8 mg/mg 12-12 [facility] BUN/creatinine ratioOrdered By: Inocencio Frye on 08-30-2024 Urea nitrogen/Creatinine [Mass ratio] 12.5 mg/mg 12-12 [facility] Basic Metabolic Profile (BMP )on 08-30-2024 BUN/CRE 12.8 RATIO Normal 12-12 [facility] Comment on above: Performed By: #### L 503.6030, BTS, L500.2500, L100.0100 ####[facility] [address] [place], [address] Calcium [Mass/Vol] 9.2 mg/dL Normal 7.6-11.0 [facility] Comment on above: Performed By: #### L 503.6030, BTS, L500.2500, L100.0100 ####[facility] [address] [place], [address] Chloride [Moles/Vol] 106 mmol/L Normal 98-108 [facility] Comment on above: Performed By: #### L 503.6030, BTS, L500.2500, L100.0100 ####[facility] [address] [place], [address] CO2 [Moles/Vol] 19.2 mmol/L Low 21.0-32.0 [facility] Comment on above: Performed By: #### L 503.6030, BTS, L500.2500, L100.0100 ####[facility] [address] [place], [address] Creatinine [Mass/Vol] 0.66 mg/dL Low 0.70-1.20 [facility] Comment on above: Performed By: #### L 503.6030, BTS, L500.2500, L100.0100 ####[facility] [address] [place], [address] ECRCL 99.69 ml/min Normal 50-250 [facility] Comment on above: Performed By: #### L 503.6030, BTS, L500.2500, L100.0100 ####[facility] [address] [place], [address] GAP 13 Normal 5-15 [facility] Comment on above: Performed By: #### L 503.6030, BTS, L500.2500, L100.0100 ####[facility] [address] [place], [address] GFR/1.73 sq M.predicted among non-blacks MDRD (S/P/Bld) [Vol rate/Area] 109 mL/min/{1.73_m2} Normal >60 [facility] Comment on above: Result Comment: mL/m in/1.73m2 CKD-EPI Creatinine Equation (2020) Performed By: #### L 503.6030, BTS, L500.2500, L100.0100 ####[facility] [address] [place], [address] Glucose [Mass/Vol] 97 mg/dL Normal 70-99 [facility] Comment on above: Performed By: #### L 503.6030, BTS, L500.2500, L100.0100 ####[facility] [address] [place], [address] Potassium [Moles/Vol] 3.8 mmol/L Normal 3.3-5.1 [facility] Comment on above: Result Comment: Hemo lysis present, Results??could be affected. ?? Performed By: #### L 503.6030, BTS, L500.2500, L100.0100 ####[facility] [address] [place], [address] Sodium [Moles/Vol] 139 mmol/L Normal 133-145 [facility] Comment on above: Performed By: #### L 503.6030, BTS, L500.2500, L100.0100 ####[facility] [address] [place], [address] Urea nitrogen [Mass/Vol] 8 mg/dL Normal 4-19 [facility] Comment on above: Performed By: #### L 503.6030, BTS, L500.2500, L100.0100 ####[facility] [address] [place], [address] Basophil percentageOrdered B y: Joselito Maldonado on 08-30-2024 Basophils/100 WBC (Bld) 1.0 % 0-1 [facility] Basophil percentageOrdered B y: Inocencio Frye on 08-30-2024 Basophils/100 WBC (Bld) 1.3 % High 0-1 [facility] Bilirubin, totalOrdered By: Inocencio Frye on 08-30-2024 Bilirubin [Mass/Vol] 0.40 mg/dL 0.00-1.30 [facility] CBC W/Diff, Automatedon Hemoglobin (Bld) [Mass/Vol] 5.9 g/dL Invalid Interpretation Code 12.0-15.0 [facility] Comment on above: Result Comment: CRITICAL VALUE CALLED TO DREA VIERA 08/30/24 [address] Sil[address]. RESULTS READ BACK BY SAME. Performed By: #### L 503.6030, BTS, L500.2500, L100.0100 ####[facility] [address] [place], [address] MPV TNP Normal 6.2-12.0 [facility] Comment on above: Performed By: #### L 503.6030, BTS, L500.2500, L100.0100 ####[facility] [address] [place], [address] Absolute Lymph 1.12 X10 3/uL Normal 0.83-4.51 [facility] Comment on above: Performed By: #### L 503.6030, BTS, L500.2500, L100.0100 ####[facility] [address] [place], [address] Absolute Neut 3.0 X10 3/uL Normal 2.0-7.7 [facility] Comment on above: Performed By: #### L 503.6030, BTS, L500.2500, L100.0100 ####[facility] [address] [place], [address] Basophils/100 WBC (Bld) 1.0 % Normal 0-1 [facility] Comment on above: Performed By: #### L 503.6030, BTS, L500.2500, L100.0100 ####[facility] [address] [place], [address] Eosinophils/100 WBC (Bld) 2.2 % Normal 0-5 [facility] Comment on above: Performed By: #### L 503.6030, BTS, L500.2500, L100.0100 ####[facility] [address] [place], [address] Erythrocyte distribution width (RBC) [Ratio] 18.8 % High 11.6-14.6 [facility] Comment on above: Performed By: #### L 503.6030, BTS, L500.2500, L100.0100 ####[facility] [address] [place], [address] Hematocrit (Bld) [Volume fraction] 23.1 % Low 37-47 [facility] Comment on above: Performed By: #### L 503.6030, BTS, L500.2500, L100.0100 ####[facility] [address] [place], [address] IG% 0.400 Normal 0.0-0.9 [facility] Comment on above: Result Comment: IG% - Immature Granulocytes (promyelocytes, myelocytes and metamyelocytes) > 1% indicates that a LEFT SHIFT is Present. Performed By: #### L 503.6030, BTS, L500.2500, L100.0100 ####[facility] [address] [place], [address] Lymphocytes/100 WBC (Bld) 22.6 % Normal 19-41 [facility] Comment on above: Performed By: #### L 503.6030, BTS, L500.2500, L100.0100 ####[facility] [address] [place], [address] MCH (RBC) [Entitic mass] 17.1 pg Low 27.0-32.0 [facility] Comment on above: Performed By: #### L 503.6030, BTS, L500.2500, L100.0100 ####[facility] [address] [place], [address] MCHC (RBC) [Mass/Vol] 25.5 g/dL Low 32-36 [facility] Comment on above: Performed By: #### L 503.6030, BTS, L500.2500, L100.0100 ####[facility] [address] [place], [address] MCV (RBC) [Entitic vol] 67.0 fL Low 81-99 [facility] Comment on above: Performed By: #### L 503.6030, BTS, L500.2500, L100.0100 ####[facility] [address] [place], [address] Monocytes/100 WBC (Bld) 12.7 % High 0-10 [facility] Comment on above: Performed By: #### L 503.6030, BTS, L500.2500, L100.0100 ####[facility] [address] [place], [address] Neutrophils/100 WBC (Bld) 61.1 % Normal 47-70 [facility] Comment on above: Performed By: #### L 503.6030, BTS, L500.2500, L100.0100 ####[facility] [address] [place], [address] Nucleated RBC (Bld) [#/Vol] 0 10*3/uL Normal 0-5 [facility] Comment on above: Performed By: #### L 503.6030, BTS, L500.2500, L100.0100 ####[facility] [address] [place], [address] Platelets (Bld) [#/Vol] 204 10*3/uL Normal 150-450 [facility] Comment on above: Performed By: #### L 503.6030, BTS, L500.2500, L100.0100 ####[facility] [address] [place], [address] RBC (Bld) [#/Vol] 3.45 10*6/uL Low 4.2-5.4 [facility] Comment on above: Performed By: #### L 503.6030, BTS, L500.2500, L100.0100 ####[facility] [address] [place], [address] RDW SD 44.3 fl High 35.1-43.9 [facility] Comment on above: Performed By: #### L 503.6030, BTS, L500.2500, L100.0100 ####[facility] [address] [place], [address] WBC (Bld) [#/Vol] 5.0 10*3/uL Normal 4.4-11.0 [facility] Comment on above: Performed By: #### L 503.6030, BTS, L500.2500, L100.0100 ####[facility] [address] [place], [address] Absolute Lymph 0.93 X10 3/uL Normal 0.83-4.51 [facility] Comment on above: Performed By: #### L 100.0100, L503.6030, L503.6550 #### [facility] [address] [place], [address] Absolute Neut 1.6 X10 3/uL Low 2.0-7.7 [facility] Comment on above: Performed By: #### L 100.0100, L503.6030, L503.6550 #### [facility] [address] [place], [address] Basophils/100 WBC (Bld) 1.3 % High 0-1 [facility] Comment on above: Performed By: #### L 100.0100, L503.6030, L503.6550 #### [facility] [address] [place], [address] Eosinophils/100 WBC (Bld) 2.9 % Normal 0-5 [facility] Comment on above: Performed By: #### L 100.0100, L503.6030, L503.6550 #### [facility] [address] [place], [address] Erythrocyte distribution width (RBC) [Ratio] 18.6 % High 11.6-14.6 [facility] Comment on above: Performed By: #### L 100.0100, L503.6030, L503.6550 #### [facility] [address] [place], [address] Hematocrit (Bld) [Volume fraction] 21.4 % Low 37-47 [facility] Comment on above: Performed By: #### L 100.0100, L503.6030, L503.6550 #### [facility] [address] [place], [address] Hemoglobin (Bld) [Mass/Vol] 5.5 g/dL Invalid Interpretation Code 12.0-15.0 [facility] Comment on above: Performed By: #### L 100.0100, L503.6030, L503.6550 #### [facility] [address] [place], [address] IG% 0.000 Normal 0.0-0.9 [facility] Comment on above: Result Comment: IG% - Immature Granulocytes (promyelocytes, myelocytes and metamyelocytes) > 1% indicates that a LEFT SHIFT is Present. Performed By: #### L 100.0100, L503.6030, L503.6550 #### [facility] [address] [place], [address] Lymphocytes/100 WBC (Bld) 29.5 % Normal 19-41 [facility] Comment on above: Performed By: #### L 100.0100, L503.6030, L503.6550 #### [facility] [address] [place], [address] MCH (RBC) [Entitic mass] 17.1 pg Low 27.0-32.0 [facility] Comment on above: Performed By: #### L 100.0100, L503.6030, L503.6550 #### [facility] [address] [place], [address] MCHC (RBC) [Mass/Vol] 25.7 g/dL Low 32-36 [facility] Comment on above: Performed By: #### L 100.0100, L503.6030, L503.6550 #### [facility] [address] [place], [address] MCV (RBC) [Entitic vol] 66.7 fL Low 81-99 [facility] Comment on above: Performed By: #### L 100.0100, L503.6030, L503.6550 #### [facility] [address] [place], [address] Monocytes/100 WBC (Bld) 17.1 % High 0-10 [facility] Comment on above: Performed By: #### L 100.0100, L503.6030, L503.6550 #### [facility] [address] [place], [address] Neutrophils/100 WBC (Bld) 49.2 % Normal 47-70 [facility] Comment on above: Performed By: #### L 100.0100, L503.6030, L503.6550 #### [facility] [address] [place], [address] Nucleated RBC (Bld) [#/Vol] 0 10*3/uL Normal 0-5 [facility] Comment on above: Performed By: #### L 100.0100, L503.6030, L503.6550 #### [facility] [address] [place], [address] Platelets (Bld) [#/Vol] 189 10*3/uL Normal 150-450 [facility] Comment on above: Performed By: #### L 100.0100, L503.6030, L503.6550 #### [facility] [address] [place], [address] RBC (Bld) [#/Vol] 3.21 10*6/uL Low 4.2-5.4 [facility] Comment on above: Performed By: #### L 100.0100, L503.6030, L503.6550 #### [facility] [address] [place], [address] RDW SD 43.9 fl Normal 35.1-43.9 [facility] Comment on above: Performed By: #### L 100.0100, L503.6030, L503.6550 #### [facility] [address] [place], [address] WBC (Bld) [#/Vol] 3.2 10*3/uL Low 4.4-11.0 [facility] Comment on above: Performed By: #### L 100.0100, L503.6030, L503.6550 #### [facility] [address] [place], [address] Carbon dioxide, total [Moles /volume] in Central venous bloodOrdered By: Joselito Maldonado on 08-30-2024 CO2 [Moles/Vol] 19.2 mmol/L Low 21.0-32.0 [facility] Carbon dioxide, total [Moles /volume] in Central venous bloodOrdered By: Inocencio Frye on 08-30-2024 CO2 [Moles/Vol] 21.7 mmol/L 21.0-32.0 [facility] Chloride assayOrdered By: Rush Maldonado on 08-30-2024 Chloride [Moles/Vol] 106 mmol/L 98-108 [facility] Chloride assayOrdered By: Chacha Frye on 08-30-2024 Chloride [Moles/Vol] 107 mmol/L 98-108 [facility] Comprehensive Metabolic Prof ilon 08-30-2024 Albumin [Mass/Vol] 4.5 g/dL Normal 3.5-5.0 [facility] Comment on above: Performed By: #### L 100.0100, L503.6030, L503.6550 #### [facility] [address] [place], [address] Albumin/Globulin [Mass ratio] 1.8 {ratio} Normal 0.9-2.4 [facility] Comment on above: Performed By: #### L 100.0100, L503.6030, L503.6550 #### [facility] [address] [place], [address] ALK PHOS 44 U/L Normal 35-104 [facility] Comment on above: Performed By: #### L 100.0100, L503.6030, L503.6550 #### [facility] [address] [place], [address] ALT [Catalytic activity/Vol] 7 U/L Normal <=34 [facility] Comment on above: Performed By: #### L 100.0100, L503.6030, L503.6550 #### [facility] [address] [place], [address] AST [Catalytic activity/Vol] 13 U/L Normal <=31 [facility] Comment on above: Performed By: #### L 100.0100, L503.6030, L503.6550 #### [facility] [address] [place], [address] Bilirubin [Mass/Vol] 0.40 mg/dL Normal 0.00-1.30 [facility] Comment on above: Performed By: #### L 100.0100, L503.6030, L503.6550 #### [facility] [address] [place], [address] BUN/CRE 12.5 RATIO Normal 10-20 [facility] Comment on above: Performed By: #### L 100.0100, L503.6030, L503.6550 #### [facility] [address] [place], [address] Calcium [Mass/Vol] 9.0 mg/dL Normal 7.6-11.0 [facility] Comment on above: Performed By: #### L 100.0100, L503.6030, L503.6550 #### [facility] [address] [place], [address] Chloride [Moles/Vol] 107 mmol/L Normal 98-108 [facility] Comment on above: Performed By: #### L 100.0100, L503.6030, L503.6550 #### [facility] [address] [place], [address] CO2 [Moles/Vol] 21.7 mmol/L Normal 21.0-32.0 [facility] Comment on above: Performed By: #### L 100.0100, L503.6030, L503.6550 #### [facility] [address] [place], [address] Creatinine [Mass/Vol] 0.63 mg/dL Low 0.70-1.20 [facility] Comment on above: Performed By: #### L 100.0100, L503.6030, L503.6550 #### [facility] [address] [place], [address] GAP 10 Normal 5-15 [facility] Comment on above: Performed By: #### L 100.0100, L503.6030, L503.6550 #### [facility] [address] [place], [address] GFR/1.73 sq M.predicted among non-blacks MDRD (S/P/Bld) [Vol rate/Area] 111 mL/min/{1.73_m2} Normal >60 [facility] Comment on above: Result Comment: mL/m in/1.73m2 CKD-EPI Creatinine Equation (2020) Performed By: #### L 100.0100, L503.6030, L503.6550 #### [facility] [address] [place], [address] Globulin (S) [Mass/Vol] 2.6 g/dL Normal 2.2-4.2 [facility] Comment on above: Performed By: #### L 100.0100, L503.6030, L503.6550 #### [facility] [address] [place], [address] Glucose [Mass/Vol] 94 mg/dL Normal 70-99 [facility] Comment on above: Performed By: #### L 100.0100, L503.6030, L503.6550 #### [facility] [address] [place], [address] Potassium [Moles/Vol] 3.8 mmol/L Normal 3.3-5.1 [facility] Comment on above: Performed By: #### L 100.0100, L503.6030, L503.6550 #### [facility] [address] [place], [address] Sodium [Moles/Vol] 138 mmol/L Normal 133-145 [facility] Comment on above: Performed By: #### L 100.0100, L503.6030, L503.6550 #### [facility] [address] [place], [address] T PROT 7.0 g/dL Normal 5.9-8.4 [facility] Comment on above: Performed By: #### L 100.0100, L503.6030, L503.6550 #### [facility] [address] [place], [address] Urea nitrogen [Mass/Vol] 8 mg/dL Normal 4-19 [facility] Comment on above: Performed By: #### L 100.0100, L503.6030, L503.6550 #### [facility] [address] [place], [address] Emergency Department Summary on 08-30-2024 Emergency Department Summary [facility] Medical Records Department [address] [place] [address] Emergency Department Summary 08/30/24 MR#: [id number] Acct: [id number] Name: GALINDO JOHNSTON Rep #: [id number] : 1980 44 From: Joselito Maldonado DO [...] Medical deci (more content not included)... Normal [facility] Eosinophil percentageOrdered By: Joselito Maldonado on 08-30-2024 Eosinophils/100 WBC (Bld) 2.2 % 0-5 [facility] Eosinophil percentageOrdered By: Inocencio Frye on 08-30-2024 Eosinophils/100 WBC (Bld) 2.9 % 0-5 [facility] Erythrocyte distribution wid th ratioOrdered By: Joselito Maldonado on 08-30-2024 Erythrocyte distribution width (RBC) [Ratio] 18.8 % High 11.6-14.6 [facility] Erythrocyte distribution wid th ratioOrdered By: Inocencio Frye on 08-30-2024 Erythrocyte distribution width (RBC) [Ratio] 18.6 % High 11.6-14.6 [facility] Erythrocyte distribution wid th standard deviationOrdered By: Joselito Le on 08-30-2024 Erythrocyte distribution width (RBC) [Ratio] 44.3 fl High 35.1-43.9 [facility] Erythrocyte distribution wid th standard deviationOrdered By: Inocencio Frye on 08-30-2024 Erythrocyte distribution width (RBC) [Ratio] 43.9 fl 35.1-43.9 [facility] Ferritinon 08-30-2024 Ferritin [Mass/Vol] 4 ng/mL Low 22-378 [facility] Comment on above: Performed By: #### L 100.0100, L503.6030, L503.6550 #### [facility] [address] [place], [place], [address] Glomerular filtration rate ( GFR) estimation/1.73 sq m using serum, plasma, or whole bOrdered By: Joselito Maldonado on 08-30-2024 GFR/1.73 sq M.predicted among non-blacks MDRD (S/P/Bld) [Vol rate/Area] 109 mL/min/{1.73_m2} >60 [facility] Comment on above: mL/min/1.73m2 CKD-EP I Creatinine Equation (2020) Glomerular filtration rate ( GFR) estimation/1.73 sq m using serum, plasma, or whole bOrdered By: Inocencio Frye on 08-30-2024 GFR/1.73 sq M.predicted among non-blacks MDRD (S/P/Bld) [Vol rate/Area] 111 mL/min/{1.73_m2} >60 [facility] Comment on above: mL/min/1.73m2 CKD-EP I Creatinine Equation (2020) H AND P Exam - Hospitaliston 08-30-2024 H&P Exam - Hospitalist [facility] Medical Records Department [address] [place] [address] H P Exam - Hospitalist 08/30/24 1852 MR#: [id number] Acct: [id number] Name: GALINDO JOHNSTON Rep #: [id number] : 1980 44 From: Johnny Zamora MD PCP: Dr. Inocencio Frye MD Status:ADM ROMINA Location: [place] [address]-1 HPI - General General Date of Admission: [...] on vitals including [facility] rate [facility] Anxiety Former smoker Medical History [...] 100 100 (more content not included)... Normal [facility] HH, Hemoglobin AND Hematocri ton 08-30-2024 Hematocrit (Bld) [Volume fraction] 26.6 % Low [address] [place] [address] Comment on above: Order Comment: Comme nts: After blood transfusion Performed By: #### L 100.0500 #### [facility] [address] [place], [address] Hemoglobin (Bld) [Mass/Vol] 7.7 g/dL Low 12.0-15.0 [facility] Comment on above: Order Comment: Comme nts: After blood transfusion Performed By: #### L 100.0500 #### [facility] [address] [place], [address] Hematocrit Auto (Bld) [Volum e fraction]Ordered By: Joselito Maldonado on 08-30-2024 Hematocrit (Bld) [Volume fraction] 23.1 % Low [address] [place] [address] Hematocrit Auto (Bld) [Volum e fraction]Ordered By: Inocencio Frye on 08-30-2024 Hematocrit (Bld) [Volume fraction] 21.4 % Low [address] [place] [address] Hemoglobin measurementOrdere d By: Joselito Maldonado on 08-30-2024 Hemoglobin (Bld) [Mass/Vol] 5.9 g/dL Low 12.0-15.0 [facility] Comment on above: CRITICAL VALUE HESTER D TO DREA VIERA08/30/24 [address]RESULTS READ BACK BY SAME. Hemoglobin measurementOrdere d By: Inocencio Frye on 08-30-2024 Hemoglobin (Bld) [Mass/Vol] 5.5 g/dL Critically low 12.0-15.0 [facility] Immature granulocytes/100 WB C Auto (Bld)Ordered By: Joselito Maldonado on 08-30-2024 Immature granulocytes/100 WBC (Bld) 0.400 % 0.0-0.9 [facility] Comment on above: IG% - Immature Granu locytes (promyelocytes, myelocytes and metamyelocytes) > 1% indicates that a LEFT SHIFT is Present. Immature granulocytes/100 WB C Auto (Bld)Ordered By: Inocencio Frye on 08-30-2024 Immature granulocytes/100 WBC (Bld) 0.000 % 0.0-0.9 [facility] Comment on above: IG% - Immature Granu locytes (promyelocytes, myelocytes and metamyelocytes) > 1% indicates that a LEFT SHIFT is Present. Iron measurement (mass/mass) Ordered By: Joselito Maldonado on 08-30-2024 Iron (Unsp spec) [Mass/Mass] 10 ug/dL Low 50-170 [facility] Iron measurement (mass/mass) Ordered By: Inocencio Frye on 08-30-2024 Iron (Unsp spec) [Mass/Mass] 9 ug/dL Low 50-170 [facility] Iron+Iron Binding Capacityon 08-30-2024 TIBC 476 ug/dL High 250-450 [facility] Comment on above: Performed By: #### L 100.0100, L503.6030, L503.6550 #### [facility] [address] [place], [place], [address] Laboratory - Chemistry and C hemistry - challengeOrdered By: Inocencio Frye on 08-30-2024 AST [Catalytic activity/Vol] 13 U/L <32 [facility] MCV (mean corpuscular volume ) determinationOrdered By: Joselito Maldonado on 08-30-2024 MCV (RBC) [Entitic vol] 67.0 fL Low 81-99 [facility] MCV (mean corpuscular volume ) determinationOrdered By: Inocencio Frye on 08-30-2024 MCV (RBC) [Entitic vol] 66.7 fL Low 81-99 [facility] Magnesiumon 08-30-2024 Magnesium [Mass/Vol] 2.2 mg/dL Normal 1.5-2.2 [facility] Comment on above: Performed By: #### L 100.0100, L503.6030, L503.6550 #### [facility] [address] [place], [place], [address] Magnesium measurement (mass/ volume)Ordered By: Johnny Zamora on 08-30-2024 Magnesium (Unsp spec) [Mass/Vol] 2.2 mg/dL 1.5-2.2 [facility] Mean corpuscular hemoglobin (MCH) determinationOrdered By: Joselito Maldonado on 08-30-2024 MCH (RBC) [Entitic mass] 17.1 pg Low 27.0-32.0 [facility] Mean corpuscular hemoglobin (MCH) determinationOrdered By: Inocencio Frye on 08-30-2024 MCH (RBC) [Entitic mass] 17.1 pg Low 27.0-32.0 [facility] Mean corpuscular hemoglobin concentration (MCHC) determinationOrdered By: Joselito Maldonado on 08-30-2024 MCHC (RBC) [Mass/Vol] 25.5 g/dL Low 32-36 [facility] Mean corpuscular hemoglobin concentration (MCHC) determinationOrdered By: Inocencio Frye on 08-30-2024 MCHC (RBC) [Mass/Vol] 25.7 g/dL Low 32-36 [facility] Mean platelet volume determi nationOrdered By: Joselito Maldonado on 08-30-2024 Mean platelet volume determination [facility] Comment on above: Test not performed Monocyte percentageOrdered B y: Joselito Maldonado on 08-30-2024 Monocytes/100 WBC (Bld) 12.7 % High 0-10 [facility] Monocyte percentageOrdered B y: Inocencio Frye on 08-30-2024 Monocytes/100 WBC (Bld) 17.1 % High 0-10 [facility] Neutrophil percentageOrdered By: Joselito Maldonado on 08-30-2024 Neutrophils/100 WBC (Bld) 61.1 % 47-70 [facility] Neutrophil percentageOrdered By: Inocencio Frye on 08-30-2024 Neutrophils/100 WBC (Bld) 49.2 % 47-70 [facility] No Panel InformationOrdered By: Joselito Maldonado on 08-30-2024 Unsaturated Iron Binding Capacity 504 ug/dL High 228-428 [facility] No Panel InformationOrdered By: Inocencio Frye on 08-30-2024 Unsaturated Iron Binding Capacity 467 ug/dL High 228-428 [facility] Nucleated red blood cell per centageOrdered By: Joselito Maldonado on 08-30-2024 Nucleated RBC/100 WBC (Bld) [Ratio] 0 % 0-5 [facility] Nucleated red blood cell per centageOrdered By: Inocencio Frye on 08-30-2024 Nucleated RBC/100 WBC (Bld) [Ratio] 0 % 0-5 [facility] Platelet countOrdered By: Rush Maldonado on 08-30-2024 Platelets (Bld) [#/Vol] 204 10*3/uL 150-450 [facility] Platelet countOrdered By: Chacha Frye on 08-30-2024 Platelets (Bld) [#/Vol] 189 10*3/uL 150-450 [facility] Potassium measurement (mass/ volume)Ordered By: Joselito Maldonado on 08-30-2024 Potassium (Unsp spec) [Mass/Vol] 3.8 mmol/L 3.3-5.1 [facility] Comment on above: Hemolysis present, R esults could be affected. Potassium measurement (mass/ volume)Ordered By: Inocencio Frye on 08-30-2024 Potassium (Unsp spec) [Mass/Vol] 3.8 mmol/L 3.3-5.1 [facility] RBC Auto (Bld) [#/Vol]Ordere d By: Joselito Maldonado on 08-30-2024 RBC (Bld) [#/Vol] 3.45 10*6/uL Low 4.2-5.4 [facility] RBC Auto (Bld) [#/Vol]Ordere d By: Inocencio Frye on 08-30-2024 RBC (Bld) [#/Vol] 3.21 10*6/uL Low 4.2-5.4 [facility] Serum creatinine measurement (mass/volume)Ordered By: Joselito Maldonado on 08-30-2024 Creatinine [Mass/Vol] 0.66 mg/dL Low 0.70-1.20 [facility] Serum creatinine measurement (mass/volume)Ordered By: Inocencio Frye on 08-30-2024 Creatinine [Mass/Vol] 0.63 mg/dL Low 0.70-1.20 [facility] Serum globulin measurementOr dered By: Inocencio Frye on 08-30-2024 Globulin (S) [Mass/Vol] 2.6 g/dL 2.2-4.2 [facility] Serum glucose measurement (m ass/volume)Ordered By: Joselito Maldonado on 08-30-2024 Glucose [Mass/Vol] 97 mg/dL 70-99 [facility] Serum glucose measurement (m ass/volume)Ordered By: Inocencio Frye on 08-30-2024 Glucose [Mass/Vol] 94 mg/dL 70-99 [facility] Serum or plasma alanine fontaine otransferase (ALT) measurementOrdered By: Inocencio Frye on 08-30-2024 ALT [Catalytic activity/Vol] 7 U/L <35 [facility] Serum or plasma albumin mao urement (mass/volume)Ordered By: Inocencio Frye on 08-30-2024 Albumin [Mass/Vol] 4.5 g/dL 3.5-5.0 [facility] Serum or plasma albumin/glob ulin mass ratioOrdered By: Inocencio Frye on 08-30-2024 Albumin/Globulin [Mass ratio] 1.8 {ratio} 0.9-2.4 [facility] Serum or plasma alkaline natalie sphatase measurementOrdered By: Inocencio Frye on 08-30-2024 ALP [Catalytic activity/Vol] 44 U/L 35-104 [facility] Serum or plasma calcium mao urement (mass/volume)Ordered By: Joselito Le on 08-30-2024 Calcium [Mass/Vol] 9.2 mg/dL 7.6-11.0 [facility] Serum or plasma calcium mao urement (mass/volume)Ordered By: Inocencio Frye on 08-30-2024 Calcium [Mass/Vol] 9.0 mg/dL 7.6-11.0 [facility] Serum or plasma ferritin marti surement (mass/volume)Ordered By: Inocencio Frye on 08-30-2024 Ferritin [Mass/Vol] 4 ng/mL Low 22-378 [facility] Serum or plasma iron saturat ion measurement (mass fraction)Ordered By: Joselito Maldonado on 08-30-2024 Iron saturation [Mass fraction] 1.9 % Low 13-59 [facility] Comment on above: Previous reported re sult: 2.0 %Edited by: CHARLES on 08/31/24:1903 AMENDED REPORT 08/31/241902 IRON SATURATION previously reported as: 2.0 L % Serum or plasma iron saturat ion measurement (mass fraction)Ordered By: Inocencio Frye on 08-30-2024 Iron saturation [Mass fraction] 1.9 % Low 13-59 [facility] Comment on above: Previous reported re sult: 2.0 %Edited by: WHITLEY on 08/30/24:1349 AMENDED REPORT 08/30/24 1349 IRON SATURATION previously reported as: 2.0 L % Serum or plasma urea nitroge n measurement (mass/volume)Ordered By: Joselito Maldonado on 08-30-2024 Urea nitrogen [Mass/Vol] 8 mg/dL 06-11 [facility] Serum or plasma urea nitroge n measurement (mass/volume)Ordered By: Inocencio Frye on 08-30-2024 Urea nitrogen [Mass/Vol] 8 mg/dL 06-11 [facility] Sodium levelOrdered By: Viral Maldonado on 08-30-2024 Sodium [Moles/Vol] 139 mmol/L 133-145 [facility] Sodium levelOrdered By: Inocencio Frye on 08-30-2024 Sodium [Moles/Vol] 138 mmol/L 133-145 [facility] Stool Occult Blood iFOBon STOB Negative Normal [facility] Comment on above: Performed By: #### M 100.7900 ####[facility] [id number] [place], [address] Stool gastrointestinal hemog lobin detection by immunologic methodOrdered By: Joselito Maldonado on 08-30-2024 Lower GI hemoglobin IA Ql (Stl) [facility] Total proteinOrdered By: Zackary Frye on 08-30-2024 Protein [Mass/Vol] 7.0 g/dL 5.9-8.4 [facility] Type AND Screenon 08-30-2024 Ab SCREEN GEL Negative Normal [facility] Comment on above: Order Comment: A Performed By: #### L 503.6030, BTS, L500.2500, L100.0100 ####[facility] [address], [address] Vitamin D,25 Hydroxyon 08-30 Vitamin D 25-OH 52.1 ng/mL Normal 30-100 [facility] Comment on above: Result Comment: Lori min D Status Deficiency: <20 ng/mL (50nmol/L) Insufficiency: 20-30 ng/mL (50-75 nmol/L) Sufficiency: 30-100 ng/mL (75-250 nmol/L) Toxicity: >100 ng/mL (>250 nmol/L) Performed By: #### L 100.0100, L503.6030, L503.6550 #### [facility] [address] [place], [place], [address] White blood cell (WBC) count Ordered By: Joselito Maldonado on 08-30-2024 WBC (Bld) [#/Vol] 5.0 10*3/uL 4.4-11.0 [facility] White blood cell (WBC) count Ordered By: Inocencio Frye on 08-30-2024 WBC (Bld) [#/Vol] 3.2 10*3/uL Low 4.4-11.0 [facility] Anion gap in Serum or Plasma Ordered By: Inocencio Frye on 04-28-2024 Anion gap [Moles/Vol] 14 mmol/L 5-15 [facility] BUN/creatinine ratioOrdered By: Inocencio Frye on 04-28-2024 Urea nitrogen/Creatinine [Mass ratio] 12.2 mg/mg 10-20 [facility] Bilirubin, totalOrdered By: Inocencio Frye on 04-28-2024 Bilirubin [Mass/Vol] 0.57 mg/dL 0.00-1.30 [facility] Carbon dioxide, total [Moles /volume] in Central venous bloodOrdered By: Inocencio Frye on 04-28-2024 CO2 [Moles/Vol] 20.3 mmol/L Low 21.0-32.0 [facility] Chloride assayOrdered By: Chacha Frye on 04-28-2024 Chloride [Moles/Vol] 102 mmol/L 98-108 [facility] Comprehensive Metabolic Prof ilon 04-28-2024 Albumin [Mass/Vol] 4.3 g/dL Normal 3.5-5.0 [facility] Comment on above: Order Comment: Order Date: 04/28/24 Order Info: 0786-1 - CMP Performed By: #### L 500.4050 #### [facility] [address] [place], [address] Albumin/Globulin [Mass ratio] 1.4 {ratio} Normal 0.9-2.4 [facility] Comment on above: Order Comment: Order Date: 04/28/24 Order Info: 0786-1 - CMP Performed By: #### L 500.4050 #### [facility] [address] [place], [address] ALK PHOS 52 U/L Normal 35-104 [facility] Comment on above: Order Comment: Order Date: 04/28/24 Order Info: 0786-1 - CMP Performed By: #### L 500.4050 #### [facility] [address] [place], [address] ALT [Catalytic activity/Vol] 8 U/L Normal <=34 [facility] Comment on above: Order Comment: Order Date: 04/28/24 Order Info: 0786-1 - CMP Performed By: #### L 500.4050 #### [facility] [address] [place], [address] AST [Catalytic activity/Vol] 15 U/L Normal <=31 [facility] Comment on above: Order Comment: Order Date: 04/28/24 Order Info: 0786-1 - CMP Performed By: #### L [id number] #### [facility] [address] [place], [address] Bilirubin [Mass/Vol] 0.57 mg/dL Normal 0.00-1.30 [facility] Comment on above: Order Comment: Order Date: 04/28/24 Order Info: 0786-1 - CMP Performed By: #### L 500.4050 #### [facility] [address] [place], [address] BUN/CRE 12.2 RATIO Normal 10-20 [facility] Comment on above: Order Comment: Order Date: 04/28/24 Order Info: 0786-1 - CMP Performed By: #### L [id number] #### [facility] [address] [place], [address] Calcium [Mass/Vol] 9.1 mg/dL Normal 7.6-11.0 [facility] Comment on above: Order Comment: Order Date: 04/28/24 Order Info: 0786-1 - CMP Performed By: #### L [id number] #### [facility] [address] [place], [address] Chloride [Moles/Vol] 102 mmol/L Normal 98-108 [facility] Comment on above: Order Comment: Order Date: 04/28/24 Order Info: 0786-1 - CMP Performed By: #### L [id number] #### [facility] [address] [place], [address] CO2 [Moles/Vol] 20.3 mmol/L Low 21.0-32.0 [facility] Comment on above: Order Comment: Order Date: 04/28/24 Order Info: 0786-1 - CMP Performed By: #### L [id number] #### [facility] [address] [place], [address] Creatinine [Mass/Vol] 0.72 mg/dL Normal 0.70-1.20 [facility] Comment on above: Order Comment: Order Date: 04/28/24 Order Info: 0786-1 - CMP Performed By: #### L [id number] #### [facility] [address] [place], [address] GAP 14 Normal 5-15 [facility] Comment on above: Order Comment: Order Date: 04/28/24 Order Info: 0786-1 - CMP Performed By: #### L [id number] #### [facility] [address] [place], [address] GFR/1.73 sq M.predicted among non-blacks MDRD (S/P/Bld) [Vol rate/Area] 105 mL/min/{1.73_m2} Normal >60 [facility] Comment on above: Order Comment: Order Date: 04/28/24 Order Info: 0786-1 - CMP Result Comment: mL/m in/1.73m2 CKD-EPI Creatinine Equation (2020) Performed By: #### L 500.4050 #### [facility] [address] [place], [address] Globulin (S) [Mass/Vol] 3.0 g/dL Normal 2.2-4.2 [facility] Comment on above: Order Comment: Order Date: 04/28/24 Order Info: 0786-1 - CMP Performed By: #### L 500.4050 #### [facility] [address] [place], [address] Glucose [Mass/Vol] 87 mg/dL Normal 70-99 [facility] Comment on above: Order Comment: Order Date: 04/28/24 Order Info: 0786-1 - CMP Performed By: #### L 500.4050 #### [facility] [address] [place], [address] Potassium [Moles/Vol] 4.0 mmol/L Normal 3.3-5.1 [facility] Comment on above: Order Comment: Order Date: 04/28/24 Order Info: 0786-1 - CMP Performed By: #### L 500.4050 #### [facility] [address] [place], [address] Sodium [Moles/Vol] 136 mmol/L Normal 133-145 [facility] Comment on above: Order Comment: Order Date: 04/28/24 Order Info: 0786-1 - CMP Performed By: #### L 500.4050 #### [facility] [address] [place], [address] T PROT 7.3 g/dL Normal 5.9-8.4 [facility] Comment on above: Order Comment: Order Date: 04/28/24 Order Info: 0786-1 - CMP Performed By: #### L [id number] #### [facility] [address] [place], [address] Urea nitrogen [Mass/Vol] 9 mg/dL Normal 4-19 [facility] Comment on above: Order Comment: Order Date: 04/28/24 Order Info: 0786-1 - CMP Performed By: #### L 500.4050 #### [facility] [address] [place], [address] GFR/1.73 sq M.predicted daniel g non-blacks MDRD (S/P/Bld) [Vol rate/Area]Ordered By: Inocencio Frye on 04-28-2024 Estimated GFR (MDRD) Non-Af Amer 105 >60 [facility] Comment on above: mL/min/1.73m2 CKD-EP I Creatinine Equation (2020) L506.1001on 04-28-2024 Vitamin D 25-OH 34.2 ng/mL Normal 30-100 [facility] Comment on above: Order Comment: Order Date: 04/28/24 Order Info: 0786-1 - CMP Result Comment: Lori min D Status Deficiency: <20 ng/mL (50nmol/L) Insufficiency: 20-30 ng/mL (50-75 nmol/L) Sufficiency: 30-100 ng/mL (75-250 nmol/L) Toxicity: >100 ng/mL (>250 nmol/L) Performed By: #### L 506.1001 #### [facility] [address] [place], [address] Laboratory - Chemistry and C hemistry - challengeOrdered By: Inocencio Frye on 04-28-2024 AST [Catalytic activity/Vol] 15 U/L <32 [facility] Potassium (Unsp spec) [Mass/ Vol]Ordered By: Inocencio Frye on 04-28-2024 Potassium [Moles/Vol] 4.0 mmol/L 3.3-5.1 [facility] Serum creatinine measurement (mass/volume)Ordered By: Inocencio Frye on 04-28-2024 Creatinine [Mass/Vol] 0.72 mg/dL 0.70-1.20 [facility] Serum globulin measurementOr dered By: Inocencio Frye on 04-28-2024 Globulin (S) [Mass/Vol] 3.0 g/dL 2.2-4.2 [facility] Serum glucose measurement (m ass/volume)Ordered By: Inocencio Frye on 04-28-2024 Glucose [Mass/Vol] 87 mg/dL 70-99 [facility] Serum or plasma alanine fontaine otransferase (ALT) measurementOrdered By: Inocencio Frye on 04-28-2024 ALT [Catalytic activity/Vol] 8 U/L <35 [facility] Serum or plasma albumin mao urement (mass/volume)Ordered By: Inocencio Frye on 04-28-2024 Albumin [Mass/Vol] 4.3 g/dL 3.5-5.0 [facility] Serum or plasma albumin/glob ulin mass ratioOrdered By: Inocencio Frye on 04-28-2024 Albumin/Globulin [Mass ratio] 1.4 {ratio} 0.9-2.4 [facility] Serum or plasma alkaline natalie sphatase measurementOrdered By: Inocencio Frye on 04-28-2024 ALP [Catalytic activity/Vol] 52 U/L 35-104 [facility] Serum or plasma calcium mao urement (mass/volume)Ordered By: Inocencio Frye on 04-28-2024 Calcium [Mass/Vol] 9.1 mg/dL 7.6-11.0 [facility] Serum or plasma urea nitroge n measurement (mass/volume)Ordered By: Inocencio Frye on 04-28-2024 Urea nitrogen [Mass/Vol] 9 mg/dL 4-19 [facility] Sodium levelOrdered By: Inocencio Frye on 04-28-2024 Sodium [Moles/Vol] 136 mmol/L 133-145 [facility] Total proteinOrdered By: Zackary Frye on 04-28-2024 Protein [Mass/Vol] 7.3 g/dL 5.9-8.4 [facility] Vitamin D, 25-hydroxyOrdered By: Inocencio Frye on 04-28-2024 Vitamin D 25-Hydroxy 34.2 ng/mL 30-100 [facility] Comment on above: Vitamin D StatusDefi ciency: <20 ng/mL (50nmol/L)Insufficiency: 20-30 ng/mL (50-75 nmol/L)Sufficiency: 30-100 ng/mL (75-250 nmol/L)Toxicity: >100 ng/mL (>250 nmol/L) SCREENING MAMM (CAD), [facility] 01-19-2024 SCREENING MAMM (CAD), [facility] Services [address] [place] [address] SCREENING MAMM (CAD), [facility] MR#: [id number] Acct: [id number] Name: GALINDO JOHNSTON Rep #: [id number] : 1980 F 43 From: Joaquin Miller MD PCP: Dr. Inocencio Frye MD Status: [facility] Study: SCREENING MAMM (CAD), [facility] Date of Exam: 12/25 08/16 Exam# [id number] Ordering Dr: Angelica Olmos COMPUTER INFORMATION SCIENCE PROFESSOR COMPUTER INFORMATION SCIENCE PROFESSOR-C [id number] MAMMOGRAPHY - BILATERAL SCREENING 3-D TOMOSYNTHESIS REASON [...] CC: RUTH Olmos; Dr. Inocencio Frye MD Provider Relations Representative: Signed Normal [facility] Basophil percentageOrdered B y: Inocencio Frye on 06-04-2023 Bilirubin [Mass/Vol] 0.50 mg/dL 0.20-1.00 [facility] Comment on above: For patients on eltr ombopag therapy, use of Dimension [place] TBIL is not recommended. Chloride [Moles/Vol] 106 mmol/L 98-107 [facility] Glucose [Mass/Vol] 89 mg/dL 74-106 [facility] Potassium [Moles/Vol] 3.8 mmol/L 3.5-5.1 [facility] Protein [Mass/Vol] 7.3 g/dL 6.4-8.2 [facility] Sodium [Moles/Vol] 137 mmol/L 136-145 [facility] Laboratory - Chemistry and C hemistry - challengeOrdered By: Inocencio Frye on 06-04-2023 Albumin/Globulin [Mass ratio] 1.1 {ratio} 0.9-2.4 [facility] ALP [Catalytic activity/Vol] 50 U/L 45-117 [facility] ALT [Catalytic activity/Vol] 14 U/L 13-56 [facility] CO2 [Moles/Vol] 26.0 mmol/L 21.0-32.0 [facility] Globulin (S) [Mass/Vol] 3.5 g/dL 2.2-4.2 [facility] Urea nitrogen/Creatinine [Mass ratio] 15.5 mg/mg 10-20 [facility] No Panel InformationOrdered By: Inocencio Frye on 06-04-2023 Estimated GFR (MDRD) Amer 104 mL/min >60 [facility] Comment on above: GFR Calc Estimated GFR (MDRD) Non-Af Amer 86 mL/min >60 [facility] Comment on above: Non- GFR Calc Vitamin D 25-Hydroxy 39.6 ng/mL [facility] Comment on above: Vitamin D 25(OH) Sta tus Range Deficiency <20 ng/mL (50nmol/L) Insufficiency 20 - 30 ng/mL (50 - 75 nmol/L) Sufficiency 30 - 100 ng/mL (75 - 250 nmol/L) Toxicity >100 ng/mL (>250 nmol/L) Serum or plasma calcium mao urement (mass/volume)Ordered By: Inocencio Frye on 06-04-2023 Calcium [Mass/Vol] 8.7 mg/dL 8.5-10.1 [facility] Serum or plasma creatinine m easurement (mass/volume)Ordered By: Inocencio Frye on 06-04-2023 Creatinine [Mass/Vol] 0.78 mg/dL 0.55-1.02 [facility] Comment on above: The validity of the calculated GFR & GFRAA in patients over 70 years has not been determined. Clinical correlation is essential. Serum or plasma urea nitroge n measurement (mass/volume)Ordered By: Inocencio Frye on 06-04-2023 Urea nitrogen [Mass/Vol] 12 mg/dL 7-18 [facility] Thin prep Papanicolaou smear with manual screeningOrdered By: Inocencio Frye on 06-04-2023 Thin prep Papanicolaou smear with manual screening 3.8 g/dL 3.2-5.0 [facility] Thin prep Papanicolaou smear with manual screening 10 U/L 15-37 [facility] Thin prep Papanicolaou smear with manual screening 5 5-15 [facility] Basophil percentageOrdered B y: Josette Elizabeth on 12-03-2022 Cholesterol [Mass/Vol] 131 mg/dL <200 [facility] Comment on above: <200 mg/dL Desirable 200-240 mg/dL Borderline >240 mg/dL High Risk Triglyceride [Mass/Vol] 105 mg/dL <199 [facility] Comment on above: The drugs N-Acetylcy steine and Metamizole may falsely depress this assay.Serum Triglycerides Reference Interval Normal <150 mg/dL Borderline high 150 - 199 mg/dL High 200 - 499 mg/dL Very High > or = 500 mg/dL Serum or plasma cholesterol in HDL measurement (mass/volume)Ordered By: Josette Elizabeth on 12-03-2022 Cholesterol in HDL [Mass/Vol] 46 mg/dL >40 [facility] Comment on above: The drugs N-Acetylcy steine and Metamizole may falsely depress this assay. Reference Range HDL <40 mg/dL Low HDL Cholesterol HDL >or= 60 mg/dL High HDL Cholesterol Serum or plasma cholesterol in VLDL measurement (mass/volume)Ordered By: Josette Elizabeth on 12-03-2022 Cholesterol in VLDL [Mass/Vol] 21 mg/dL 5-40 [facility] Serum or plasma low density lipoprotein (LDL) cholesterol measurement (mass/volume)Ordered By: Josette Elizabeth on 12-03-2022 Cholesterol in LDL [Mass/Vol] 64 mg/dL 0-130 [facility] Basophil percentageOrdered B y: Dr. Frye on 05-27-2022 Bilirubin [Mass/Vol] 0.30 mg/dL 0.20-1.00 [facility] Comment on above: For patients on eltr ombopag therapy, use of Dimension [place] TBIL is not recommended. Chloride [Moles/Vol] 106 mmol/L 98-107 [facility] Glucose [Mass/Vol] 92 mg/dL 74-106 [facility] Potassium [Moles/Vol] 3.8 mmol/L 3.5-5.1 [facility] Protein [Mass/Vol] 7.6 g/dL 6.4-8.2 [facility] Sodium [Moles/Vol] 138 mmol/L 136-145 [facility] Laboratory - Chemistry and C hemistry - challengeOrdered By: Dr. Frye on 05-27-2022 ALP [Catalytic activity/Vol] 48 U/L 45-117 [facility] ALT [Catalytic activity/Vol] 17 U/L 13-56 [facility] CO2 [Moles/Vol] 26.0 mmol/L 21.0-32.0 [facility] Globulin (S) [Mass/Vol] 3.7 g/dL 2.2-4.2 [facility] Urea nitrogen/Creatinine [Mass ratio] 17.8 mg/mg 10-20 [facility] No Panel InformationOrdered By: Dr. Frye on 05-27-2022 Estimated GFR (MDRD) Amer 111 mL/min >60 [facility] Comment on above: GFR Calc Estimated GFR (MDRD) Non-Af Amer 92 mL/min >60 [facility] Comment on above: Non- GFR Calc Vitamin D 25-Hydroxy 66.2 ng/mL [facility] Comment on above: Vitamin D 25(OH) Sta tus Range Deficiency <20 ng/mL (50nmol/L) Insufficiency 20 - 30 ng/mL (50 - 75 nmol/L) Sufficiency 30 - 100 ng/mL (75 - 250 nmol/L) Toxicity >100 ng/mL (>250 nmol/L) Serum or plasma albumin mao urement (mass/volume)Ordered By: Dr. Frye on 05-27-2022 Albumin [Mass/Vol] 3.9 g/dL 3.2-5.0 [facility] Serum or plasma albumin/glob ulin mass ratioOrdered By: Dr. Frye on 05-27-2022 Albumin/Globulin [Mass ratio] 1.1 {ratio} 0.9-2.4 [facility] Serum or plasma calcium mao urement (mass/volume)Ordered By: Dr. Frye on 05-27-2022 Calcium [Mass/Vol] 8.9 mg/dL 8.5-10.1 [facility] Serum or plasma creatinine m easurement (mass/volume)Ordered By: Dr. Frye on 05-27-2022 Creatinine [Mass/Vol] 0.73 mg/dL 0.55-1.02 [facility] Comment on above: The validity of the calculated GFR & GFRAA in patients over 70 years has not been determined. Clinical correlation is essential. Serum or plasma urea nitroge n measurement (mass/volume)Ordered By: Dr. Frye on 05-27-2022 Urea nitrogen [Mass/Vol] 13 mg/dL 7-18 [facility] Thin prep Papanicolaou smear with manual screeningOrdered By: Dr. Frye on 05-27-2022 Thin prep Papanicolaou smear with manual screening 13 U/L 15-37 [facility] Thin prep Papanicolaou smear with manual screening 6 5-15 [facility] Basophil percentageon 2021 Bilirubin [Mass/Vol] 0.80 mg/dL 0.20-1.00 [facility] Work Phone: Comment on above: For patients on eltr ombopag therapy, use of Dimension [place] TBIL is not recommended. Chloride [Moles/Vol] 104 mmol/L 98-107 [facility] Work Phone: Glucose [Mass/Vol] 90 mg/dL 74-106 [facility] Work Phone: Potassium [Moles/Vol] 3.7 mmol/L 3.5-5.1 [facility] Work Phone: Protein [Mass/Vol] 7.9 g/dL 6.4-8.2 [facility] Work Phone: Sodium [Moles/Vol] 135 mmol/L 136-145 [facility] Work Phone: Laboratory - Chemistry and C hemistry - challengeon 05-14-2021 ALP [Catalytic activity/Vol] 49 U/L 45-117 [facility] Work Phone: ALT [Catalytic activity/Vol] 20 U/L 13-56 [facility] Work Phone: CO2 [Moles/Vol] 25.0 mmol/L 21.0-32.0 [facility] Work Phone: Globulin (S) [Mass/Vol] 3.7 g/dL 2.2-4.2 [facility] Work Phone: Urea nitrogen/Creatinine [Mass ratio] 19.4 mg/mg 10-20 [facility] Work Phone: No Panel Informationon 05-14 Estimated GFR (MDRD) Amer 114 mL/min >60 [facility] Work Phone: Comment on above: GFR Calc Estimated GFR (MDRD) Non-Af Amer 94 mL/min >60 [facility] Work Phone: Comment on above: Non- GFR Calc Thyroid Stimulating Hormone (TSH) 2.01 uIU/mL 0.358-3.74 [facility] Work Phone: Vitamin D 25-Hydroxy 67.6 ng/mL [facility] Work Phone: Comment on above: Vitamin D 25(OH) Sta tus Range Deficiency <20 ng/mL (50nmol/L) Insufficiency 20 - 30 ng/mL (50 - 75 nmol/L) Sufficiency 30 - 100 ng/mL (75 - 250 nmol/L) Toxicity >100 ng/mL (>250 nmol/L) Serum or plasma albumin mao urement (mass/volume)on 05-14-2021 Albumin [Mass/Vol] 4.2 g/dL 3.2-5.0 [facility] Work Phone: Serum or plasma albumin/glob ulin mass ratioon 05-14-2021 Albumin/Globulin [Mass ratio] 1.1 {ratio} 0.9-2.4 [facility] Work Phone: Serum or plasma calcium mao urement (mass/volume)on 05-14-2021 Calcium [Mass/Vol] 8.8 mg/dL 8.5-10.1 [facility] Work Phone: Serum or plasma creatinine m easurement (mass/volume)on 05-14-2021 Creatinine [Mass/Vol] 0.72 mg/dL 0.55-1.02 [facility] Work Phone: Comment on above: The validity of the calculated GFR & GFRAA in patients over 70 years has not been determined. Clinical correlation is essential. Serum or plasma urea nitroge n measurement (mass/volume)on 05-14-2021 Urea nitrogen [Mass/Vol] 14 mg/dL 7-18 [facility] Work Phone: Thin prep Papanicolaou smear with manual screeningon 05-14-2021 Thin prep Papanicolaou smear with manual screening 14 U/L 15-37 [facility] Work Phone: Thin prep Papanicolaou smear with manual screening 6 5-15 [facility] Work Phone: Vital Signs Date Time Vital Sign Value Performing Clinician Faci lity 11-21-2024 10:59-0400 Body height 162.[address] Inocencio Frye MD Work Phone: [facility] 11-21-2024 10:59-0400 Body mass index (BMI) [Ratio] 23.5 kg/m2 Dr. Inocencio Frye MD Work Phone: [facility] 11-21-2024 10:59-0400 Body weight 62.[address] Inocencio Frye MD Work Phone: [facility] 11-21-2024 10:59-0400 Diastolic blood pressure 78 mm[Hg] Dr. Inocencio Frye MD Work Phone: [facility] 11-21-2024 10:59-0400 Systolic blood pressure 126 mm[Hg] Dr. Inocencio Frye MD Work Phone: [facility] 11-08-2024 15:10-0400 Body temperature 97.8 [degF] Dr. Inocencio Frye MD Work Phone: [facility] 11-08-2024 15:10-0400 Diastolic blood pressure 64 mm[Hg] Dr. Inocencio Frye MD Work Phone: 1(489)792-212582 [place] [address] 11-08-2024 15:10-0400 Heart rate 83 /min Dr. Inocencio Frye MD Work Phone: [facility] 11-08-2024 15:10-0400 Respiratory rate 16 /min Dr. Inocencio Frye MD Work Phone: 2(185)863-807182 [place] [address] 11-08-2024 15:10-0400 SaO2% (BldA) [Mass fraction] 100 % Dr. Inocencio Frye MD Work Phone: 4(374)028-167182 [place] [address] 11-08-2024 15:10-0400 Systolic blood pressure 98 mm[Hg] Dr. Inocencio Frye MD Work Phone: 2(445)867-805485 [place] [address] 11-08-2024 13:00-0400 Inhaled oxygen flow rate 4 L/min Dr. Inocencio Frye MD Work Phone: 8(267)196-420085 [place] [address] 11-08-2024 09:00-0400 Body height 162.[address] Inocencio Frye MD Work Phone: 8(230)509-581582 [place] [address] 11-08-2024 09:00-0400 Body mass index (BMI) [Ratio] 23.6 kg/m2 Dr. Inocencio Frye MD Work Phone: 7(926)172-378785 [place] [address] 11-08-2024 09:00-0400 Body weight 62.[address] Inocencio Frye MD Work Phone: 4(039)152-958929 [address] 11-07-2024 23:47-0400 Body temperature 99.1 [degF] Dr. Inocencio Frye MD Work Phone: [facility] 11-07-2024 23:47-0400 Diastolic blood pressure 67 mm[Hg] Dr. Inocencio Frye MD Work Phone: 9(822)793-436782 [place] [address] 11-07-2024 23:47-0400 Heart rate 87 /min Dr. Inocencio Frye MD Work Phone: 0(551)214-305282 [place] [address] 11-07-2024 23:47-0400 Respiratory rate 16 /min Dr. Inocencio Frye MD Work Phone: 6(160)967-749282 [place] [address] 11-07-2024 23:47-0400 SaO2% (BldA) [Mass fraction] 100 % Dr. Inocencio Frye MD Work Phone: [facility] 11-07-2024 23:47-0400 Systolic blood pressure 127 mm[Hg] Dr. Inocencio Frye MD Work Phone: 9(116)232-816685 [place] [address] 11-06-2024 18:00-0400 Body temperature 98.3 [degF] Dr. Inocencio Frye MD Work Phone: 6(888)396-045682 [place] [address] 11-06-2024 18:00-0400 Diastolic blood pressure 68 mm[Hg] Dr. Inocencio Frye MD Work Phone: 1(706)995-153182 [place] [address] 11-06-2024 18:00-0400 Heart rate 79 /min Dr. Inocencio Frye MD Work Phone: 0(877)398-877985 [place] [address] 11-06-2024 18:00-0400 Respiratory rate 16 /min Dr. Inocencio Frye MD Work Phone: 4(519)675-534982 [place] [address] 11-06-2024 18:00-0400 SaO2% (BldA) [Mass fraction] 100 % Dr. Inocencio Frye MD Work Phone: 8(711)083-457482 [place] [address] 11-06-2024 18:00-0400 Systolic blood pressure 123 mm[Hg] Dr. Inocencio Frye MD Work Phone: 2(168)201-419982 [place] [address] 11-06-2024 16:07-0400 Body height 162.[address] Inocencio Frye MD Work Phone: 8(891)917-820482 [place] [address] 11-06-2024 16:07-0400 Body mass index (BMI) [Ratio] 23.7 kg/m2 Dr. Inocencio Frye MD Work Phone: 1(030)539-751282 [place] [address] 11-06-2024 16:07-0400 Body weight 62.[address] Inocencio Frye MD Work Phone: 5(468)022-676682 [place] [address] 10-21-2024 10:06-0400 Body height 162.[address] Inocencio Frye MD Work Phone: [facility] 10-21-2024 10:06-0400 Body mass index (BMI) [Ratio] 24.4 kg/m2 Dr. Inocencio Frye MD Work Phone: [facility] 10-21-2024 10:06-0400 Body weight 64.[address] Inocencio Frye MD Work Phone: 7(604)898-660382 [place] [address] 10-21-2024 10:06-0400 Diastolic blood pressure 79 mm[Hg] Dr. Inocencio Frye MD Work Phone: 0(655)172-219529 [address] 10-21-2024 10:06-0400 Systolic blood pressure 138 mm[Hg] Dr. Inocencio Frye MD Work Phone: 2(401)995-669785 [place] [address] 09-09-2024 13:21-0400 Body height 162.[address] Inocencio Frye MD Work Phone: 7(712)367-797885 [place] [address] 09-09-2024 13:21-0400 Body mass index (BMI) [Ratio] 24.2 kg/m2 Dr. Inocencio Frye MD Work Phone: 4(643)141-147129 [address] 09-09-2024 13:21-0400 Body weight 63.[address] Inocencio Frye MD Work Phone: 2(787)068-224682 [place] [address] 09-09-2024 13:21-0400 Diastolic blood pressure 67 mm[Hg] Dr. Inocencio Frye MD Work Phone: 5(268)602-906982 [place] [address] 09-09-2024 13:21-0400 Systolic blood pressure 128 mm[Hg] Dr. Inocencio Frye MD Work Phone: 9(209)592-072282 [place] [address] 08-31-2024 14:02-0400 Body temperature 98.4 [degF] Dr. Inocencio Frye MD Work Phone: 1(495)741-215785 [place] [address] 08-31-2024 14:02-0400 Diastolic blood pressure 70 mm[Hg] Dr. Inocencio Frey MD Work Phone: 1(972)320-890629 [address] 08-31-2024 14:02-0400 Heart rate 93 /min Dr. Inocencio Frye MD Work Phone: [facility] 08-31-2024 14:02-0400 Respiratory rate 16 /min Dr. Inocencio Frye MD Work Phone: [facility] 08-31-2024 14:02-0400 SaO2% (BldA) [Mass fraction] 97 % Dr. Inocencio Frye MD Work Phone: [facility] 08-31-2024 14:02-0400 Systolic blood pressure 134 mm[Hg] Dr. Inocencio Frye MD Work Phone: 1(777)110-205582 [place] [address] 08-31-2024 10:28-0400 SaO2% (BldA) [Mass fraction] 98 % Dr. Inocencio Frye MD Work Phone: 9(244)036-679682 [place] [address] 08-31-2024 10:00-0400 Body temperature 98.8 [degF] Dr. Inocencio Frye MD Work Phone: 7(127)935-506429 [address] 08-31-2024 10:00-0400 Diastolic blood pressure 61 mm[Hg] Dr. Inocencio Frye MD Work Phone: 1(769)293-186429 [address] 08-31-2024 10:00-0400 Heart rate 91 /min Dr. Inocencio Frye MD Work Phone: 3(721)489-125882 [place] [address] 08-31-2024 10:00-0400 Systolic blood pressure 113 mm[Hg] Dr. Inocencio Frye MD Work Phone: 6(354)128-192082 [place] [address] 08-31-2024 03:14-0400 Body mass index (BMI) [Ratio] 25 kg/m2 Dr. Inocencio Frye MD Work Phone: 0(549)412-228782 [place] [address] 08-31-2024 03:14-0400 Body weight [address] Inocencio Frye MD Work Phone: [facility] 08-30-2024 20:12-0400 Body height 162.[address] Inocencio Frye MD Work Phone: 5(485)743-862382 [place] [address] 08-30-2024 19:47-0400 Body temperature 98.2 [degF] Dr. Inocencio Frye MD Work Phone: [facility] 08-30-2024 19:47-0400 Diastolic blood pressure 76 mm[Hg] Dr. Inocencio Frye MD Work Phone: [facility] 08-30-2024 19:47-0400 Heart rate 71 /min Dr. Inocencio Frye MD Work Phone: [facility] 08-30-2024 19:47-0400 Respiratory rate 17 /min Dr. Inocencio Frye MD Work Phone: [facility] 08-30-2024 19:47-0400 SaO2% (BldA) [Mass fraction] 99 % Dr. Inocencio Frye MD Work Phone: [facility] 08-30-2024 19:47-0400 Systolic blood pressure 125 mm[Hg] Dr. Inocencio Frye MD Work Phone: [facility] 08-30-2024 14:29-0400 Body height 162.[address] Inocencio Frye MD Work Phone: [facility] 08-30-2024 14:29-0400 Body mass index (BMI) [Ratio] 25 kg/m2 Dr. Inocencio Frye MD Work Phone: [facility] 08-30-2024 14:29-0400 Body weight 66.[address] Inocencio Frye MD Work Phone: [facility] Encounters Encounter Date Encounter Type Care Provider Facility Start: 01-20-2025 ambulatory Roxanna King Fa cility:[facility] Start: 12-19-2024 End: 12-19-2024 ambulatory Roxanna King Facility:[facility] Start: 12-19-2024 End: 12-19-2024 ambulatory Inocencio Frye Facility:[facility] Start: 11-29-2024 Encounter for other preprocedural examination Roxanna King [facility] Start: 11-21-2024 End: 11-21-[address] Roxanna King DO -[facility] Work Phone: Start: 11-21-2024 End: 11-21-[address] Inocencio Frye MD Work Phone: -[facility] Start: 11-16-2024 End: 11-16-[address] Inocencio Frye MD Work Phone: -[facility] Start: 11-16-2024 End: 11-16-[address] Inocencio Frye MD -[facility] Start: 11-16-2024 End: 11-16-2024 ambulatory Inocencio Frye Facility:[facility] Start: 11-08-2024 ambulatory Roxanna Conrad cility:[facility] Start: 11-08-2024 Non-patient / Non-visit Dr. Luca King DO -[facility] Start: 11-08-2024 End: 11-08-2024 Admission to same day surgery center Dr. Roxanna King DO [facility] Start: 11-08-2024 End: 11-08-[address] Inocencio Frye MD Work Phone: -[facility] Start: 11-07-2024 End: 11-07-[address] Olive Mckinney MD -[facility] Work Phone: Start: 11-07-2024 End: 11-07-[address] Inocencio Frye MD Work Phone: -[facility] Start: 11-06-2024 End: 11-06-2024 Emergency department patient visit Dr. Inocencio Frye MD Work Phone: -Emergency Department Work Phone: Start: 10-21-2024 End: 10-21-[address] Roxanna King DO -[facility] Work Phone: Start: 10-21-2024 End: 10-21-[address] Inocencio Frye MD Work Phone: -[facility] Start: 10-21-2024 End: 10-21-2024 [facility] Start: 10-19-2024 Encounter for other preprocedural examination Roxannakimberly Castellanos [facility] Start: 10-11-2024 Non-patient / Non-visit Dr. Carmen KELIN -[facility] Work Phone: Start: 10-11-2024 End: 10-11-[address] Inocencio Frye MD Work Phone: -Pulmonary Services/Neurology Start: 10-11-2024 End: 10-11-[address] Roxanna King DO -Pulmonary Services/Neurology Work Phone: Start: 10-11-2024 End: 10-11-2024 ambulatory [facility] Jasmin [facility] Facility:[facility] Start: 09-09-2024 End: 09-09-[address] Roxanna King DO -Laboratory Specimen Work Phone: Start: 09-09-2024 End: 09-09-[address] Inocencio Frye MD Work Phone: -Laboratory Specimen Start: 09-09-2024 End: 09-09-[address] Roxanna King DO -[facility] Work Phone: Start: 09-09-2024 End: 09-09-[address] Inocencio Frye MD Work Phone: -[facility] Start: 09-06-2024 End: 09-06-[address] Inocencio Frye MD Work Phone: -Laboratory [facility] Start: 09-06-2024 End: 09-06-[address] Inocencio Frye MD -Laboratory [facility] Start: 09-06-2024 End: 09-06-2024 ambulatory Inocencio Frye Facility:[facility] Start: 08-31-2024 Non-patient / Non-visit Dr. Lori Conrad MD -[facility] Work Phone: Start: 08-31-2024 Non-patient / Non-visit Dr. Luca King DO -[facility] Start: 08-30-2024 Non-patient / Non-visit Dr. Johnny Zamora MD -[facility] Work Phone: Start: 08-30-2024 End: 08-31-2024 ambulatory Lori Conrad Facility:[facility] Start: 08-30-2024 End: 08-31-2024 Evaluation and management of inpatient Dr. Johnny Zamora MD -Progressive Care Unit Work Phone: Start: 08-30-2024 End: 08-31-[address] Inocencio Frye MD Work Phone: -[facility] Start: 08-30-2024 End: 08-30-[address] Inocencio Frye MD Work Phone: -Laboratory [facility] Start: 08-30-2024 End: 08-30-[address] Inocencio Frye MD -[facility] Start: 08-30-2024 End: 08-30-2024 ambulatory Inocencio Frye Facility:[facility] Start: 04-28-2024 End: 04-28-[address] Inocencoi Frye MD Work Phone: [facility] Work Phone: Start: 04-28-2024 End: 04-28-[address] [facility] Start: 04-28-2024 End: 04-28-2024 ambulatory Inocencio Frye Facility:[facility] Start: 01-19-2024 End: 01-19-2024 Patient encounter procedure Angelica MIRANDA -Outpatient [facility] Work Phone: Start: 01-19-2024 End: 01-19-2024 ambulatory Angelica Olmos NP Facility:[facility] Start: 06-16-2023 End: 06-16-2023 ambulatory [facility] Work Phone: Start: 06-16-2023 End: 06-16-2023 Patient encounter procedure [facility]-Ultrasound, [facility] Work Phone: Start: 06-04-2023 End: 06-04-2023 ambulatory [facility] Work Phone: Start: 06-04-2023 End: 06-04-2023 Patient encounter procedure [facility] Start: 12-23-2022 End: 12-23-2022 ambulatory [facility] Work Phone: Start: 12-23-2022 End: 12-23-2022 Patient encounter procedure [facility]-Ultrasound, [facility] Work Phone: Start: 12-03-2022 End: 12-03-2022 ambulatory [facility] Work Phone: Start: 12-03-2022 End: 12-03-2022 Patient encounter procedure [facility] Start: 05-27-2022 End: 05-27-2022 ambulatory [facility] Work Phone: Start: 05-27-2022 End: 05-27-2022 Patient encounter procedure [facility] Start: 12-11-2021 End: 12-11-2021 ambulatory [facility] Work Phone: Start: 12-11-2021 End: 12-11-2021 Patient encounter procedure [facility]-Outpatient Breast Imaging Start: 05-14-2021 End: 05-14-2021 Patient encounter procedure [facility] Procedures Date Procedure Procedure Detail Performing Clinician Start: 11-16-2024 Total iron binding capacity measurement Dr. Inocencio Frye MD Work Phone: Start: 11-08-2024 Abdominal hysterecto my with conservation of ovaries Dr. Inocencio Frye MD Work Phone: Start: 11-06-[address] Inocencio Frye MD Work Phone: Start: 08-31-[address] Inocencio Frye [...] scan of thyroid Start: 12-11-2021 Screening mammography H/O: hysterectomy Status post hysterectomy Dr. Inocencio Frye MD Work Phone: H/O: hysterectomy Status post hysterectomy Dr. Roxanna King DO Plan of Treatment Date Care Activity Detail Author Start: 11-08-2024 Anesthesia intraperitoneal lower abd w/laps nos ANESTH SURG LOWER ABDOMEN [facility] Start: 11-08-2024 Laparoscopy tot hysterectomy >250 g w/tube/ovar TLH W/T/O UTERUS OVER 250 G [facility] Start: 11-08-2024 Patient discharge [facility] Start: 11-08-2024 Ambulation without limitation [facility] Start: 11-08-2024 Medication education [facility] Start: 11-08-2024 Planned voiding [facility] Start: 11-08-2024 Taking patient vital signs [facility] Start: 11-08-2024 Vital signs measurements [facility] Start: 11-08-2024 [facility] Start: 11-07-2024 Following clinical pathway protocol [facility] Start: 11-07-2024 Transfusion of blood product [facility] Start: 11-07-2024 [facility] Start: 11-07-2024 Administration of blood product [facility] Start: 11-07-2024 Leukocyte reduced red blood cells [facility] Start: 11-07-2024 [facility] Start: 11-06-2024 [facility] Start: 10-21-2024 Complete blood count [facility] Start: 08-31-2024 Patient discharge [facility] Start: 08-31-2024 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 finish mixer and 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 test 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 [facility] Start: 08-30-2024 End: 08-30-2024 Following clinical pathway protocol [facility] Start: 08-30-2024 Transfusion of blood product [facility] Start: 08-30-2024 Ambulation without limitation [facility] Start: 08-30-2024 Assessment of risk of venous thromboembolism [facility] Start: 08-30-2024 Documentation procedure [facility] Start: 08-30-2024 Insertion of catheter into peripheral vein [facility] Start: 08-30-2024 Measuring intake and output [facility] Start: 08-30-2024 Oxygen therapy [facility] Start: 08-30-2024 Providing care according to standard [facility] Start: 08-30-2024 [facility] Start: 08-30-2024 End: 08-30-2024 Admission procedure [facility] Start: 08-30-2024 Hospital admission, emergency, from emergency room, medical nature [facility] Start: 08-30-2024 Administration of blood product [facility] Erythrocyte mean corpuscular volume determination [facility] Hematocrit [Volume Fraction] of Blood [facility] Hemoglobin [Mass/vol ume] in Blood [facility] Iron [Mass/mass] in Unspecified specimen [facility] Iron saturation [Mas s Fraction] in Serum or Plasma [facility] Leukocytes [#/volume ] in Blood [facility] Mean corpuscular hemoglobin concentration determination [facility] Mean corpuscular hemoglobin determination [facility] Patient Education Anemia ED Dysf unctional Uterine Bleeding ED Uterine Fibroids [facility] Work Phone: Platelets [#/volume] in Blood [facility] Red blood cell count [facility] Red cell distributio n width determination [facility] Total iron binding capacity measurement [facility] Immunizations Immunization Date Immunization Notes Care Provider Fa cility 01-21-2019 Flucelvax Quad 2018- 2019 (PF) (flu vac qs 2018(4 yr up)CD(PF)) 60 mcg (15 mcg x [facility] Work Phone: Payers Date Payer Category Payer Self-pay [id number] 2020 Unknown [id number] Self-pay [id number] Unknown [id number] Unknown [id number] 2.16.8 [id number] Unknown [id number] 2.16.8 40.1.718931.3.579.2.462 Unknown [id number] 2.16.8 40.1.001052.3.579.2.462 Unknown [id number] 2.16.8 40.1.908443.3.579.2.462 Unknown [id number] 2.16.8 40.1.396360.3.579.2.462 Unknown [id number] 2.16.8 40.1.035089.3.579.2.462 Unknown [id number] 2.16.8 40.1.641086.3.579.2.462 Unknown [id number] 2.16.8 40.1.085498.3.579.2.462 Unknown [id number] 2.16.8 40.1.099960.3.579.2.462 Unknown [id number] 2.16.8 40.1.779385.3.579.2.462 Unknown [id number] 2.16.8 40.1.237842.3.579.2.462 Unknown [id number] 2.16.8 40.1.633437.3.579.2.462 Unknown [id number] 2.16.8 40.1.684339.3.579.2.462 Unknown [id number] 2.16.8 40.1.846987.3.579.2.462 Unknown [id number] 2.16.8 40.1.506608.3.579.2.462 Unknown [id number] 2.16.8 40.1.496056.3.579.2.462 Unknown [id number] 2.16.8 40.1.815750.3.579.2.462 Unknown [id number] 2.16.8 40.1.105036.3.579.2.462 Unknown [id number] 2.16.8 40.1.010042.3.579.2.462 Unknown [id number] 2.16.8 40.1.014425.3.579.2.462 Unknown [id number] 2.16.8 40.1.398204.3.579.2.462 Unknown [id number] 2.16.8 40.1.623816.3.579.2.462 Unknown [id number] 2.16.8 40.1.021258.3.579.2.462 Social History Date Type Detail Facility Start: 01-21-2019 End: 01-21-2019 Tobacco smoking status NHIS Unknown if ever smoked [facility] Start: 1980 Sex Assigned At Female W [facility] Start: 01-21-2019 End: 08-30-2024 Tobacco smoking status NHIS Never smoked tobacco (finding) [facility] Start: 05-10-2024 Sex Female (finding) [facility] Start: 10-25-2024 End: 11-06-2024 Tobacco smoking status NHIS Ex-smoker (finding) [facility] Sex Female [facility] Goals Date Patient Goal Desired Activity /State Functional Status Date Assessment Result Facility 08-31-2024 Functional status Up ad narda [facility] Work Phone: Mental Status Date Assessment Result Facility 11-08-2024 Cognitive function Voice/Name [facility] Work Phone: 11-06-2024 Cognitive function Level Of Cons ciousness Awake;Alert;Appropriate;Follow s Commands [facility] Work Phone: 08-31-2024 Cognitive function Voice/Name [facility] Work Phone: 08-30-2024 Cognitive function Level Of Cons ciousness Awake;Alert;Appropriate;Follow s Commands [facility] Work Phone: Clinical Notes 08-30-2024 to 11-21-2024 Note Date & Type Note Facility 11-21-2024 Progress note [facility] 11-08-2024 Consult note [facility] 11-08-2024 Consult note Note Date/Time November 08, 2024 12:27pm [facility] Medical Records Department [address] [address] Anesthesia Postop Eval I 11/08/24 1226 MR#: [id number] Acct: [id number] Name: GALINDO JOHNSTON JERMAINE Rep #:[id number] : 1980 44 From: Steven GARNER PCP: Dr. Inocencio Frye MD Status:NII CRUZ Y Race: C Location: [place] [address] Anesthesia: Postop Eval I Current Vital Signs Temperature: 97.7 F Pulse Rate: 90 Blood Pressure: 112/80 Respiratory Rate: 14 Pulse Ox: 97 Assessment Airway patent: Yes Spontaneous unlabored respirations: Yes nausea: No Vomiting: No Anesthesia Complication: No Fluid Hydration Crystalloid volume administer (ml): 1,400 Total IV fluid infused: 1,400 Progress Note Anesthesia document: Postop Eval 1 completed: Yes 11/08/241226 <Electronically signed by Steven Escobar CRNA> Date _ Steven Escobar CRNA Cosigner Signature: Date CC: ~ Signed [facility] Work Phone: 1(931) 915-848009-16-2025 Consult note [facility] Medical Records Department [address] [place] [address] Anesthesia Postop Eval I 11/08/246 MR#: [id number] Acct: [id number] Name: GALINDO JOHNSTON Rep #:[id number] : 1980 44 From: Steven GARNER PCP: Dr. Inocencio Frye MD Status:NII Sebastian Race: C Location: [place] [address] Anesthesia: Postop Eval I Current Vital Signs Temperature: 97.7 F Pulse Rate: 90 Blood Pressure: 112/80 Respiratory Rate: 14 Pulse Ox: 97 Assessment Airway patent: Yes Spontaneous unlabored respirations: Yes nausea: No Vomiting: No Anesthesia Complication: No Fluid Hydration Crystalloid volume administer (ml): 1,400 Total IV fluid infused: 1,400 Progress Note Anesthesia document: Postop Eval 1 completed: Yes 11/08/24 1227 SUBACUTE NURSE> Date _ Steven Escobar SUBACUTE NURSE Cosigner Signature: Date CC: ~ Signed [facility]09-16-2025 Procedure note [facility] Medical Records Department [address] [place] [address] Operative Report 11/08/24 1209 MR#: [id number] Acct: [id number] Name: GALINDO JOHNSTON Rep #:[id number] : 1980 44 From: Roxanna King DO PCP: Dr. Inocencio Frye MD Status:[facility] Location: [place] [address] Problems Associated Problem List Diagnoses (1) Anemia: (2) Fibroid uterus: (3) Menorrhagia: Multi Select Codes Urinary/Genital Urinary/Genital CPT Codes: 42971 Cystoscopy and 15857 TLH+BS/O >250gr uterus Operative Report (Standard) Operative Information Date of Procedure: 11/08/24 Pre-Operative Diagnosis: menorrhagia, acute blood loss anemia, fibroid uterus Post-Operative Diagnosis: menorrhagia, acute blood loss anemia, fibroid uterus Surgery/Procedure Performed: total robotic hysterectomy, bilateral salpingectomy, cystoscopy city manager: Yes [place] Tribunal Member: Anna Aldrich Tasks completed by hospital clinic assistant: Closing, Trocar and Other (suction irrigation )Additional legal administrative assistant?: No Type of Anesthesia: General RN Documented Start/Stop Times: Operation Date: 11/08/24 10:15 Case Time Into Pre-Op 11/08/24 08:05 Out of Pre-Op 11/08/24 10:08 Anesthesia Start 11/08/24 10:12 Into Room 11/08/24 10:12 Procedure Start 11/08/24 10:40 Procedure Start Time: 10:40 Procedure Stop Time: 12:10 Select all DRAINS/GRAFTS/IMPLANTS that apply: None Special Medications: none Estimated Blood Loss: 50cc Fluids Replaced: 1100 Specimen collected: Yes Description of specimen(s) removed: uterus, cervix, fibroid, bilateral fallopian tube segments Description of surgery: Findings: 16 cm uterus with large fibroid, normal appearing ovaries and tubes. On exploration of the abdominal cavity the uterus, adnexa, bowel, and liver werefound to be normal. Cystoscopy showed noevidence of leaking at approximately 250 cc of normal saline, positive ureteral orifices and jet flow are seen and nosuture material was appreciated in the bladder. Specimens removed: Uterus and cervix, Bilateral tubes Reason for surgery: This is a -year-old G2, P2 who presented to my office with history of heavy vaginal bleeding, requiring 2 separate blood transfusions sinceJuly. Ultrasound shows an enlarged uterus with a 6 cm fibroid. The planned procedure is for a robotic hysterectomy the risks benefits and alternatives werediscussed with the patient the patient had a clear understanding of the procedure esau consent form was signed. Procedure: The patient was placed in the dorsal low lithotomy position and prepped and draped in the normal sterile fashion both abdominally and in the perineum. Her legs were placed in stirrups a Souza catheter was inserted into the urethra without difficulty. A weighted speculum was placed in the vagina esau single- tooth tenaculum was used to grasp the anterior lip of the cervix. An advincula uterine manipulator was inserted through the cervix without complication and theuterus sounded to 16 cm.. It was then tied into place at the 2 and 10:00 locations on the cervix. Gloves were changed and attentionwas turned towards the abdomen. Approximately 23 cm above the pubic symphysis in the midline, and af ter Marcaine injection, a 8 mm incision was made. An 8 mm trocar was inserted through the laparoscope, then inserted into the abdomen under direct visualization using the laparoscope. Good abdominal placement was noted and no complications were appreciated. An air seal device was utilized to create pneumoperitoneum. At 12 cm lateral to the midline on the left and right sides 8mm accessory ports were placed. Next a left upper quadrant 8 mm legal administrative assistant port site was placed. The patient was placed in steep Trendelenburg position. The robot was docked. The hysterectomy was initiated first by taking down the round ligament on each side using the vessel sealer device. The fallopian tube segments were removed with the Vessel sealer and passed off through the abdominal portsites. The broad ligament was then and taken down using the vessel sealer device. Next the bladder flap was taken down without complication. This was done usingmonopolar cautery to the level of the cervical vaginal junction. After the bladder flap was created, uterine vessels were then isolated and cauterized using the vessel sealer device and EndoShears. At this point the uterine vessels were taken down further starting from the ascending branch, dissecting along the edges of the cervix to the level of the cervical vaginal junction withhemostasis appreciated. The cervical vaginal junction was then using monopolar cautery in a circumferential pattern across the superior aspect of thecervix. The specimen was delivered through the vagina and sent to pathology. The remaining vaginal cuff was then closed using a V lock suture. This was performed in a running technique. Excellent hemostasis was obtained and good closure was noted. Irrigation was then performed. All operative sites were noted to be hemostatic. A cystoscopy was performed with a 70 degree cystoscope through the urethra into the bladder withoutcomplication. The bladder was instilled with approximately 250 cc of normal saline. Intraoperative images were made. Ureteral orifices and jets were identified. No suture material was appreciated in the bladder. The bladder was then drained and cystoscope was removed. The abdominal cavity was again examined. All operative sites were noted to be hemostatic. The trochars were removed under direct visualization without complication and pneumoperitoneum was reduced. At this point the skin was then closed using 4-0 Monocryl subcuticular stitch and sealed with surgical glue. The patient tolerated the procedure well sponge lap and needle counts were correct x2 the patient was taken to the recovery room in stable condition. Surgical Findings: enlarged fibroid uterus Complications Complications: No Admit VTE Documentation VTE Present on Admission: No VTE Mechan Device Prophylaxis: SCD's VTE Pharm Prophylaxis ordered?: No Reason prophylaxis not ordered: Treatment Not Indicated 11/08/24 1215 Cosigner Signature (if applicable): CC: Dr. Roxanna King DO; Dr. Inocencio Frye MD~ Signed [facility]09-16-2025 Consult note Author Kana Lopez [facility] Note Date/Time November 08, 2024 10:01am [facility] Medical Records Department [address] [place] [address] Pre-Anesthesia Evaluation 11/08/24 0949 MR#: [id number] Acct: [id number] Name: GALINDO JOHNSTON Rep #:[id number] : 1980 44 From: Kana Lopez MD PCP: Dr. Inocencio Frye MD Status:RE G SD Y Race: C Location: [place] [address] ASA Classification* ASA Classification ASA Classification: 2 Assessment & Plan Anesthesia* Anesthesia Assessment Anesthesia Assessment: Discussed sedation and/or anesthesia options, risks, benefits, and alternatives with patient/parents/legal guardian/POA. Questions invited. The patient/parents/legal guardian/POA seems to understand and agrees to proceedwith anesthesia plan. Reviewed the physical assessment, medical history, allergy history and patient home medications list prior to surgery/procedure/anesthetic and documented any changes. Performed airway and anesthesia risk assessments. Anesthesia Type Anesthesia Type: General History Source History Obtained from:: Patient and Chart Anesthesia Focused Assessment* Temperature: 97.3 F Pulse Rate: 86 Blood Pressure: 144/84 Respiratory Rate: 18 Pulse Ox: 100 Oxygen Delivery Method: Room Air Airway Assessment Mouth opens: >3 cm Mallampati Score: III Teeth Condition: Intact Neck Range of motion (ROM): Full ROM Labs Anesthesia Preop lab: CBC WBC 4.3 K/mm3 (4.4-11.0) L 11/08/24 08:45 11/08/24 RBC 3.81 M/mm3 (4.2-5.4) L 11/08/24 08:45 11/08/24 Hgb 10.4 g/dL (12.0-15.0) L 11/08/24 08:45 5 Hct 33.5 % (37-47) L 11/08/24 08:45 11/08/24 Plt Count TNP 11/08/24 08:45 11/08/24 CHEMISTRY Potassium 3.6 mmol/L (3.3-5.1) 11/06/24 16:40 11/06/24 Sodium 139 mmol/L (133-145) 11/06/24 16:40 11/06/24 Magnesium 2.1 mg/dL (1.5-2.2) 10/25/24 16:56 10/25/24 BUN 14 mg/dL (4-19) 11/06/24 16:40 11/06/24 Creatinine 0.73 mg/dL (0.70-1.20) 11/06/24 16:40 11/06/24 Glucose 114 mg/dL (70-99) H 11/06/24 16:40 11/06/24 POC Glucose 93 mg/dL (74-106) 11/08/24 09:00 11/08/24 TSH 2.870 uIU/mL (0.300-4.200) 08/31/24 06:52 07/0 11/17 COAG PT 13.3 SECONDS (11.7-14.9) 10/25/24 16:56 Tst Clinic Negative 09/09/24 13:24 09/09/24 Pre-Assessment Diagnosis/Proposed Procedure Planned Operative Procedure(s): ROBOTIC total hysterectomy, bilateral salpingectomy, cystoscopy. 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 When Was Last Pacemaker Check QUESTION #4 FULL TEXT: You/Your Family Experience fever (hyperthermia) with Anesthesia Last Oral Intake Last Oral intake: Last Oral Intake NPO since 06:30 11/08/24 09:00 Meds taken in AM with sips of Yes 11/08/24 09:00 water? 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 Female Yes 10/25/24 09:05 HX of Motion Sickness No 10/25/24 09:05 HX of N/V After Surgery No 10/25/24 09:05 Non-Smoker Yes 10/25/24 09:05 Duration of Surgery greater Yes 10/25/24 09:05 than 60 minutes Number of Risk Factors 3 10/25/24 09:05 PONV Score Moderate Risk 10/25/24 09:05 Height & Weight Height & Weight: Anesthesia: Height & Weight Height 5 ft 4 in 11/08/24 09:00 Weight: 62.6 kg 11/08/24 09:00 Body Mass Index (BMI) 23.6 11/08/24 09:00 Respiratory Assessment Respiratory Assessment - 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 Has anyone observed you stop No 10/25/24 09:05 breathing during sleep? STOP Results Negative 10/25/24 09:05 QUESTION #5 FULL TEXT : Do you snore loudly (louder than talking or can be heard through closed doors)? 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 Specify any problems Hx of Preganancy in last 3 No 10/25/24 09:05 Months Nurse Filling Out Transfusion [email or web address] 10/25/24 09:05 & Questions: Date: 10/25/24 10/25/24 09:05 Time: 09:08 10/25/24 09:05 Patient unable to answer at this time (ie. 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 Hx Now Gestational Age (in weeks): EDC: Hx Hx Para Hx Section SAB No 11/06/24 16:07 Active Medications Active Medications: Current Medications Generic Name Dose Route Start Last Admin Trade Name Freq PRN Reason Stop Dose Admin Acetaminophen 1,000 mg 11/08/24 10:15 11/08/24 09:06 Acetaminophen 500 Mg Tablet PO 11/08/24 10:16 1,000 mg PREOP ONE Administration Celecoxib 400 mg 11/08/24 10:15 11/08/24 09:05 Celecoxib 200 Mg Capsule PO 11/08/24 10:16 400 mg PREOP ONE Administration Gabapentin 600 mg 11/08/24 10:15 11/08/24 09:05 Gabapentin 600 Mg Tablet PO 11/08/24 10:16 600 mg PREOP ONE Administration Lactated Ringer's 1,000 mls @ 40 mls/hr 11/08/24 10:15 11/08/24 09:05 IV 40 mls/hr .Q25H JO-ANN Administration Cefazolin Sodium 2 gm/ Sodium 110 mls @ 150 mls/hr 11/08/24 10:15 Chloride IV 11/08/24 10:58 INTRAOP ONE Lactated Ringer's 1,000 mls @ 70 mls/hr 11/08/24 10:15 IV .[id number] JO-ANN Magnesium Sulfate 1 gm/ 102 mls @ 408 mls/hr 11/08/24 10:15 Dextrose IV 11/08/24 10:29 PREOP ONE Insulin Human Lispro 0 unit 11/08/24 10:15 Insulin Lispro 100 Unit/Ml Insuln.Pen SC Q4H PRN PRN BG >/= 180, SEE PROTOCOL Protocol Ondansetron HCl 4 mg 11/08/24 10:15 Ondansetron 4 Mg/2 Ml Vial IV 11/08/24 10:16 INTRAOP ONE Phenazopyridine HCl 190 mg 11/08/24 10:15 11/08/24 09:06 Phenazopyridine 95 Mg Tablet PO 11/08/24 10:16 190 mg PREOP ONE Administration Scopolamine HBr 1 patch 11/08/24 10:15 11/08/24 09:05 Scopolamine 1mg/72hr Patch TD 11/08/24 10:16 1 mg PREOP ONE Administration PFSH Medical History delivery delivered Wears glasses Menorrhagia, premenopausal Iron deficiency anemia Anxiety Former smoker Home Medications ?Medication ?Instructions ?Recorded ?Last Taken ?Type cholecalciferol (vitamin D3) 100 100 mcg PO DAILY lori min 08/30/24 Unknown History mcg (4,000 unit) capsule escitalopram oxalate 20 mg tablet 20 mg PO DAILY [facility] 08/30/24 11/08/24 06:00 History ferrous gluconate 324 mg (38 mg 324 mg PO DAILY 30 day s #30 tabs 08/31/24 Unknown Rx iron) tablet ascorbate calcium (vitamin C) 500 500 mg PO QDAY 09/09 Unknown History mg tablet levocetirizine 5 mg tablet 5 mg PO QDAY 09/09/24 Unkno wn History ropinirole 1 mg tablet 1 mg PO QHS 10/25/24 Unknown History ibuprofen 800 mg tablet 800 mg PO Q8H PRN pain #30 t abs 11/08/24 Unknown Rx oxycodone-acetaminophen 5 mg-325 1 tab PO Q4H PRN pain 7 days #20 11/08/24 Unknown Rx mg tablet (Percocet) tabs Allergy/AdvReac Type Severity Reaction Status Date / Time codeine Allergy PT UNSURE Verified 11/08/24 08:59 OF REACTION Surgical History (Updated 11/08/24 @ 09:[address] Kana Lopez MD) Previous section Tubal ligation status H/O wisdom tooth extraction Social History Smoking Status: Former smoker Review of Systems (Anesthesia) ROS Narrative System reviewed and no additional complaints, except as documented. 11/08/24 1001 <Electronically signed by Kana mejia MD> Date _ Kana Lopez MD Cosigner Signature: Date CC: ~ Signed [facility] Work Phone: [phone] 978-528109-16-2025 Discharge summary Author Roxanna Thurman [facility] Note Date/Time November 08, 2024 9:49am [facility] Medical Records Department [address] [place] [address] Instructions for Home/Discharge Instructions 11/08/24 0940 MR#: [id number] Acct: [id number] Name: GALINDO JOHNSTON Rep #:[id number] : 1980 44 From: Roxanna King DO PCP: Dr. Inocencio rFye MD Status:RE G SDC Discharge Instructions DC O2, CPAP, BIPAP needs Home O2 Discharge instructions: No Dressing / Incision Discharge Activity: May Shower May resume sexual activity in: 8 weeks Weight Bearing Status: Full weight bearing Lifting Restrictions: 10 pounds for 2 weeks Dressing / Incision Call your doctor if your incision/area has: Continuous Slow Oozing, Sudden Increased Bleeding, Increased Pain/ Swelling, Increased Redness and Foul Smelling Discharge Call your doctor if you observe: Fever of 101 or Higher, Using more than 1 pad per hour, Shortness of breath, Chest pain and Uncontrolled pain Suture Line Care: Avoid Pulling/Pushing and Avoid Pinching/Bending Remove Dressing in: 1 week (if present) Cleanse incision/area with: Soap & Water and Keep Dressing Clean & Dry Follow Up Care Please Follow Up With: Roxanna King DO When: Call to make an appointment with your doctor for a postop visit in 2 and 6weeks Test Results: Test results from this visit will be discussed in further detail at your follow- up appointment, if applicable. Discharge Plan Admission Primary Reason for Your Visit: hysterectomy Attending Provider: Roxanna King Primary Care Provider: Inocencio Frye Print Language: Algerian Discharge Orders/Prescriptions Prescriptions: New ibuprofen 800 mg tablet 800 mg PO Q8H PRN (Reason: pain) Qty: 30 0RF oxycodone-acetaminophen [Percocet] 5-325 mg tablet 1 tab PO Q4H PRN (Reason: pain) 7 Days Qty: 20 0RF Continued ascorbate calcium (vitamin C) 500 mg tablet 500 mg PO QDAY levocetirizine 5 mg tablet 5 mg PO QDAY escitalopram oxalate 20 mg tablet 20 mg PO DAILY cholecalciferol (vitamin D3) 100 mcg (4,000 unit) capsule 100 mcg PO DAILY ferrous gluconate 324 mg (38 mg iron) tablet 324 mg PO DAILY 30 Days Qty: 30 0RF ropinirole 1 mg tablet 1 mg PO QHS Discontinued megestrol 40 mg tablet 40 mg PO QDAY Qty: 30 0RF Referrals / Follow Up: Inocencio Frye MD [Primary Care Provider] - Disposition Disposition (needs filled in before D/C Order can be placed): Home, Self Care 11/08/24 0949<Electronically signed by Roxanna King DO>Roxanna King DO CC: Dr. Inocencio Frye MD ~ Signed [facility] Work Phone: [phone] 441-723809-16-2025 History and physical note Author [facility]anna [facility] Note Date/Time November 08, 2024 9:26am [facility] Medical Records Department [address] [place] [address] History & Physical Exam 11/08/24 0924 MR#: [id number] Acct: [id number] Name: GALINDO JOHNSTON Rep #:[id number] : 1980 44 From: Roxanna King DO PCP: Dr. 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: No Is patient in pain?: No Allergies codeine Allergy (Verified 10/21/24 10:07) PT UNSURE OF REACTION Medications ?Medication ?Instructions ?Recorded ?Confirmed ?Type cholecalciferol (vitamin D3) 100 100 mcg PO DAILY vitamin 08/30/24 History mcg (4,000 unit) capsule escitalopram oxalate 20 mg tablet 20 mg PO DAILY mental health 08/30/24 History ropinirole 0.5 mg tablet 1 mg PO QHS restless legs 08/30/2410/21 History ferrous gluconate 324 mg (38 mg 324 mg PO DAILY 30 days #30 tabs 5 10/21/24 Rx iron) tablet ascorbate calcium (vitamin C) 500 500 mg PO QDAY 09/09/24 10/21/24 History mg tablet levocetirizine 5 mg tablet 5 mg PO QDAY 09/09/24 10/21/24 History medroxyprogesterone 5 mg tablet 5 mg PO DAILY 30 days #30 tabs 09/09/24 10/21/24 Rx megestrol 40 mg tablet 40 mg PO QDAY #30 tabs 10/04/24 10/21/24 Rx Post menopausal: No Patient : No : No 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 Back on August 31 she stated that she was feeling fine but her pcp called her after routine blood work was done at his office and told her to go to the ER. She was given 2 units of PRBCs and IV iron. I was consulted to discuss menorrhagia as being the cause of her anemia and she then continued her follow up in my office with an emb and discussion about treatment. EMB was benign as was her last pap. Her thyroid testing was also normal. Yesterday she returned with more heavy bleeding and her hg dropped again to 7.1.She was transfused a unit of blood and the repeat cbc today is pending. The planis to proceed with a robotic hysterectomy to prevent further bleeding and transfusions. Measurements: Uterus: 12.1 cm x 8.5 cm [...] ROS Const ROS Unobtainable: All systems reviewed & are unremarkable except as noted in H Resp Resp: Reports system reviewed and no additional complaints, except as documented; Denies cough GI GI: Reports as per HPI Psych Psych: Reports system reviewed and no additional complaints, except as documented Exam Const General: cooperative, healthy appearing, comfortable and no acute distress Resp Effort & Inspection: normal respiratory effort Skin General: no [...] of the procedure which include but are notlimited to risks of anesthesia, bleeding, infection, possible damage to bowel, bladder, or surrounding vasculature which could lead to additional surgery to evaluate any complications. Patient agrees to procedure and wishes to proceed. ACOG/uptodate references given for additional information regarding procedure. plan is for a total robotic hysterectomy, cystoscopy. 11/08/24925 <Electronically signed by Roxanna King DO> Cosigner Signature (if applicable): CC: Dr. Roxanna King DO; Dr. Inocencio Frye MD~ Signed [facility] Work Phone: [phone] 338-724909-16-2025 Consult note [facility] Medical Records Department [address] [place] [address] Pre-Anesthesia Evaluation 11/08/2449 MR#: [id number] Acct: [id number] Name: GALINDO JOHNSTON Rep #:[id number] : 1980 44 From: Kana Lopez MD PCP: Dr. Inocencio Frye MD Status:[facility] Y Race: C Location: [place] [address] ASA Classification* ASA Classification ASA Classification: 2 Assessment & Plan Anesthesia* Anesthesia Assessment Anesthesia Assessment: Discussed sedation and/or anesthesia options, risks, benefits, and alternatives with patient/parents/legal guardian/POA. Questions invited. The patient/parents/legal guardian/POA seems to understand and agrees to proceedwith anesthesia plan. Reviewed the physical assessment, medical history, allergy history and patient home medications list prior to surgery/procedure/anesthetic and documented any changes. Performed airway and anesthesia risk assessments. Anesthesia Type Anesthesia Type: General History Source History Obtained from:: Patient and Chart Anesthesia Focused Assessment* Temperature: 97.3 F Pulse Rate: 86 Blood Pressure: 144/84 Respiratory Rate: 18 Pulse Ox: 100 Oxygen Delivery Method: Room Air Airway Assessment Mouth opens: >3 cm Mallampati Score: III Teeth Condition: Intact Neck Range of motion (ROM): Full ROM Labs Anesthesia Preop lab: CBC WBC 4.3 K/mm3 (4.4-11.0) L 11/08/24 08:45 11/08/24 RBC 3.81 M/mm3 (4.2-5.4) L 11/08/24 08:45 11/08/24 Hgb 10.4 g/dL (12.0-15.0) L 11/08/24 08:45 5 Hct 33.5 % (37-47) L 11/08/24 08:45 11/08/24 Plt Count TNP 11/08/24 08:45 11/08/24 CHEMISTRY Potassium 3.6 mmol/L (3.3-5.1) 11/06/24 16:40 11/06/24 Sodium 139 mmol/L (133-145) 11/06/24 16:40 11/06/24 Magnesium 2.1 mg/dL (1.5-2.2) 10/25/24 16:56 10/25/24 BUN 14 mg/dL (4-19) 11/06/24 16:40 11/06/24 Creatinine 0.73 mg/dL (0.70-1.20) 11/06/24 16:40 11/06/24 Glucose 114 mg/dL (70-99) H 11/06/24 16:40 11/06/24 POC Glucose 93 mg/dL (74-106) 11/08/24 09:00 11/08/24 TSH 2.870 uIU/mL (0.300-4.200) 08/31/24 06:52 07/0 11/17 COAG PT 13.3 SECONDS (11.7-14.9) 10/25/24 16:56 Tst Clinic Negative 09/09/24 13:24 09/09/24 Pre-Assessment Diagnosis/Proposed Procedure Planned Operative Procedure(s): ROBOTIC total hysterectomy, bilateral salpingectomy, cystoscopy. 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 When Was Last Pacemaker Check QUESTION #4 FULL TEXT: You/Your Family Experience fever (hyperthermia) with Anesthesia Last Oral Intake Last Oral intake: Last Oral Intake NPO since 06:30 09/16/25 09:00 Meds taken in AM with sips of Yes 11/08/24 09:00 water? 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 Female Yes 10/25/24 09:05 HX of Motion Sickness No 10/25/24 09:05 HX of N/V After Surgery No 10/25/24 09:05 Non-Smoker Yes 10/25/24 09:05 Duration of Surgery greater Yes 10/25/24 09:05 than 60 minutes Number of Risk Factors 3 10/25/24 09:05 PONV Score Moderate Risk 10/25/24 09:05 Height & Weight Height & Weight: Anesthesia: Height & Weight Height 5 ft 4 in 11/08/24 09:00 Weight: 62.6 kg 11/08/24 09:00 Body Mass Index (BMI) 23.6 11/08/24 09:00 Respiratory Assessment Respiratory Assessment - 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 Has anyone observed you stop No 10/25/24 09:05 breathing during sleep? STOP Results Negative 10/25/24 09:05 QUESTION #5 FULL TEXT : Do you snore loudly (louder than talking or can be heard through closeddoors)? 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 Specify any problems Hx of Preganancy in last 3 No 10/25/24 09:05 Months Nurse Filling Out Transfusion [email or web address] 10/25/24 09:05 & Questions: Date: 10/25/24 10/25/24 09:05 Time: 09:10/25/24 09:05 Patient unable to answer at this time (ie. 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 Hx Now Gestational Age (in weeks): EDC: Hx Hx Para Hx Section SAB No 11/06/24 16:07 Active Medications Active Medications: Current Medications Generic Name Dose Route Start Last Admin Trade Name Freq PRN Reason Stop Dose Admin Acetaminophen 1,000 mg 11/08/24 10:15 11/08/24 09:06 Acetaminophen 500 Mg Tablet PO 11/08/24 10:16 1,000 mg PREOP ONE Administration Celecoxib 400 mg 11/08/24 10:15 11/08/24 09:05 Celecoxib 200 Mg Capsule PO 11/08/24 10:16 400 mg PREOP ONE Administration Gabapentin 600 mg 11/08/24 10:15 11/08/24 09:05 Gabapentin 600 Mg Tablet PO 11/08/24 10:16 600 mg PREOP ONE Administration Lactated Ringer's 1,000 mls @ 40 mls/hr 11/08/24 10:15 11/08/24 09:05 IV 40 mls/hr .Q25H JO-ANN Administration Cefazolin Sodium 2 gm/ Sodium 110 mls @ 150 mls/hr 11/08/24 10:15 Chloride IV 11/08/24 10:58 INTRAOP ONE Lactated Ringer's 1,000 mls @ 70 mls/hr 11/08/24 10:15 IV .[id number] JO-ANN Magnesium Sulfate 1 gm/ 102 mls @ 408 mls/hr 11/08/24 10:15 Dextrose IV 11/08/24 10:29 PREOP ONE Insulin Human Lispro 0 unit 11/08/24 10:15 Insulin Lispro 100 Unit/Ml Insuln.Pen SC Q4H PRN PRN BG >/= 180, SEE PROTOCOL Protocol Ondansetron HCl 4 mg 11/08/24 10:15 Ondansetron 4 Mg/2 Ml Vial IV 11/08/24 10:16 INTRAOP ONE Phenazopyridine HCl 190 mg 11/08/24 10:15 11/08/24 09:06 Phenazopyridine 95 Mg Tablet PO 11/08/24 10:16 190 mg PREOP ONE Administration Scopolamine HBr 1 patch 11/08/24 10:15 11/08/24 09:05 Scopolamine 1mg/72hr Patch TD 11/08/24 10:16 1 mg PREOP ONE Administration PFSH Medical History delivery delivered Wears glasses Menorrhagia, premenopausal Iron deficiency anemia Anxiety Former smoker Home Medications ?Medication ?Instructions ?Recorded ?Last Taken ?Type cholecalciferol (vitamin D3) 100 100 mcg PO DAILY lori min 08/30/24 Unknown History mcg (4,000 unit) capsule escitalopram oxalate 20 mg tablet 20 mg PO DAILY [facility] 08/30/24 11/08/24 06:00 History ferrous gluconate 324 mg (38 mg 324 mg PO DAILY 30 day s #30 tabs 08/31/24 Unknown Rx iron) tablet ascorbate calcium (vitamin C) 500 500 mg PO QDAY 09/09 Unknown History mg tablet levocetirizine 5 mg tablet 5 mg PO QDAY 09/09/24 Unkno wn History ropinirole 1 mg tablet 1 mg PO QHS 10/25/24 Unknown History ibuprofen 800 mg tablet 800 mg PO Q8H PRN pain #30 t abs 11/08/24 Unknown Rx oxycodone-acetaminophen 5 mg-325 1 tab PO Q4H PRN pain 7 days #20 11/08/24 Unknown Rx mg tablet (Percocet) tabs Allergy/AdvReac Type Severity Reaction Status Date / Time codeine Allergy PT UNSURE Verified 11/08/24 08:59 OF REACTION Surgical History (Updated 11/08/24 @ 09:[address] Kana Lopez MD) Previous section Tubal ligation status H/O wisdom tooth extraction Social History Smoking Status: Former smoker Review of Systems (Anesthesia) ROS Narrative System reviewed and no additional complaints, except as documented. 11/08/24 1001 jackie KLEIN> Date _ Kana Lopez MD Cosigner Signature: Date CC: ~ Signed [facility]09-16-2025 Discharge summary [facility] Medical Records Department [address] [place] [address] Instructions for Home/Discharge Instructions 11/08/24 0940 MR#: [id number] Acct: [id number] Name: GALINDO JOHNSTON Rep #:[id number] : 1980 44 From: Roxanna iKng DO PCP: Dr. Inocencio Frye MD Status:RE G SDC Discharge Instructions DC O2, CPAP, BIPAP needs Home O2 Discharge instructions: No Dressing / Incision Discharge Activity: May Shower May resume sexual activity in: 8 weeks Weight Bearing Status: Full weight bearing Lifting Restrictions: 10 pounds for 2 weeks Dressing / Incision Call your doctor if your incision/area has: Continuous Slow Oozing, Sudden Increased Bleeding, Increased Pain/ Swelling, Increased Redness and Foul Smelling Discharge Call your doctor if you observe: Fever of 101 or Higher, Using more than 1 pad per hour, Shortness of breath, Chest pain and Uncontrolled pain Suture Line Care: Avoid Pulling/Pushing and Avoid Pinching/Bending Remove Dressing in: 1 week (if present) Cleanse incision/area with: Soap & Water and Keep Dressing Clean & Dry Follow Up Care Please Follow Up With: Roxanna King DO When: Call to make an appointment with your doctor for a postop visit in 2 and 6weeks Test Results: Test results from this visit will be discussed in further detail at your follow- up appointment, if applicable. Discharge Plan Admission Primary Reason for Your Visit: hysterectomy Attending Provider: Roxanna King Primary Care Provider: Inocencio Frye Instructions Print Language: Algerian Discharge Orders/Prescriptions Prescriptions: New ibuprofen 800 mg tablet 800 mg PO Q8H PRN (Reason: pain) Qty: 30 0RF oxycodone-acetaminophen [Percocet] 5-325 mg tablet 1 tab PO Q4H PRN (Reason: pain) 7 Days Qty: 20 0RF Continued ascorbate calcium (vitamin C) 500 mg tablet 500 mg PO QDAY levocetirizine 5 mg tablet 5 mg PO QDAY escitalopram oxalate 20 mg tablet 20 mg PO DAILY cholecalciferol (vitamin D3) 100 mcg (4,000 unit) capsule 100 mcg PO DAILY ferrous gluconate 324 mg (38 mg iron) tablet 324 mg PO DAILY 30 Days Qty: 30 0RF ropinirole 1 mg tablet 1 mg PO QHS Discontinued megestrol 40 mg tablet 40 mg PO QDAY Qty: 30 0RF Referrals / Follow Up: Inocencio Frye MD [Primary Care Provider] - Disposition Disposition (needs filled in before D/C Order can be placed): Home, Self Care 11/08/24 0949Jerachel King DO CC: Dr. Inocencio Frye MD ~ Signed [facility]09-16-2025 History and physical note [facility] Medical Records Department [address] [place] [id number] History & Physical Exam 11/08/24923 MR#: [id number] Acct: [id number] Name: GALINDO JOHNSTON Rep #:[id number] : 1980 44 From: Roxanna King DO PCP: Dr. 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: No Is patient in pain?: No Allergies codeine Allergy (Verified 10/21/24 10:07) PT UNSURE OF REACTION Medications ?Medication ?Instructions ?Recorded ?Confirmed ?Type cholecalciferol (vitamin D3) 100 100 mcg PO DAILY vitamin 08/30/24 History mcg (4,000 unit) capsule escitalopram oxalate 20 mg tablet 20 mg PO DAILY [facility] 08/30/24 History ropinirole 0.5 mg tablet 1 mg PO QHS restless legs 08/30/2410/21 History ferrous gluconate 324 mg (38 mg 324 mg PO DAILY 30 days #30 tabs 5 10/21/24 Rx iron) tablet ascorbate calcium (vitamin C) 500 500 mg PO QDAY 09/09/24 10/21/24 History mg tablet levocetirizine 5 mg tablet 5 mg PO QDAY 09/09/24 10/21/24 History medroxyprogesterone 5 mg tablet 5 mg PO DAILY 30 days #30 tabs 09/09/24 10/21/24 Rx megestrol 40 mg tablet 40 mg PO QDAY #30 tabs 10/04/24 10/21/24 Rx Post menopausal: No Patient : No : No 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 Back on August 31 she stated that she was feeling fine but her pcp called her after routine blood work was done at his office and told her to go to the ER. She was given 2 units of PRBCs and IV iron. I was consulted to discuss menorrhagia as being the cause of her anemia and she then continued her follow up in my office with an emb and discussion about treatment. EMB was benign as was her lastpap. Her thyroid testing was also normal. Yesterday she returned with more heavy bleeding and her hg dropped again to 7.1.She was transfused a unit of blood and the repeat cbc today is pending. The planis to proceed with a robotic hysterectomy to prevent further bleeding and transfusions. Measurements: Uterus: 12.1 cm x 8.5 cm [...] ROS Const ROS Unobtainable: All systems reviewed & are unremarkable except as noted in H Resp Resp: Reports system reviewed and no additional complaints, except as documented; Denies cough GI GI: Reports as per HPI Psych Psych: Reports system reviewed and no additional complaints, except as documented Exam Const General: cooperative, healthy appearing, comfortable and no acute distress Resp Effort & Inspection: normal respiratory effort Skin General: no [...] treatment plan options, patient wishes to proceed withsurgical management. I have discussed with the patient the risks, benefits, and alternatives of theprocedure which include but are notlimited to risks of anesthesia, bleeding, infection, possible damage to bowel, bladder, or surrounding vasculature which could lead to additional surgery to evaluate any complications. Patient agrees to procedure and wishes to proceed. ACOG/uptodate references given for additional information regarding procedure. plan is for a total robotic hysterectomy, cystoscopy. 11/08/24925 Cosigner Signature (if applicable): CC: Dr. Roxanna King DO; Dr. Inocencio Frye MD~ Signed [facility]09-16-2025 [facility] Medical Records Department [address] [place] [address] History Physical Exam 11/08/24923 MR#: [id number] Acct: [id number] Name: GALINDO JOHNSTON Rep #: [id number] : 1980 44 From: Roxanna King DO PCP: Dr. 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 [employer] Required: No Is patient in pain?: No Allergies codeine Allergy (Verified 10/21/24 10:07) PT UNSURE OF REACTION Medications ???Medication ???Instructions ???Recorded ???Confirmed ???Type cholecalciferol (vitamin D3) 100 100 mcg PO DAILY vitamin 08/30/24 10/21/24 History mcg (4,000 unit) capsule escitalopram oxalate 20 mg tablet 20 mg PO DAILY [facility] 08/30/24 10/21/24 His tory ropinirole 0.5 mg tablet 1 mg PO QHS restless legs 08/30/24 10/21/24 Histor y ferrous gluconate 324 mg (38 mg 324 mg PO DAILY 30 days #30 tabs 08/31/24 10/21/24 Rx iron) tablet ascorbate calcium (vitamin C) 500 500 mg PO QDAY 09/09/24 10/21/24 History mg tablet levocetirizine 5 mg tablet 5 mg PO QDAY 09/09/24 10/21/24 History medroxyprogesterone 5 mg tablet 5 mg PO DAILY 30 days #30 tabs 09/09/24 10/21/24 R x megestrol 40 mg tablet 40 mg PO QDAY #30 tabs 10/04/24 10/21/24 Rx Post menopausal: No Patient : No : [facility] Medical History Menorrhagia, premenopausal Iron deficiency anemia Anxiety Former smoker Social History Smoking Status: Never smoker HPI 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 Back on August 31 she stated that she was feeling fine but her pcp called her after routine blood work was done at his office and told her to go to the ER. She was given 2 units of PRBCs and IV iron. I was consulted to discuss menorrhagia as being the cause of her anemia and she then continued her follow up in my office with an emb and discussion about treatment. EMB was benign as was her last pap. Her thyroid testing was also normal. Yesterday she returned with more heavy bleeding and her hg dropped again to 7.1. She was transfused a unit of blood and the repeat cbc today is pending. The plan is to proceed with a robotic hysterectomy to prevent further bleeding and transfusions. Measurements: Uterus: 12.1 cm x 8.5 cm [...] procedure and wishes to proceed. ACOG/uptodate references gi (more content not included)...[facility]09-14-2025 Discharge summary [facility] Medical Records Department [address] [place] [address] Emergency Department Summary 11/06/24 MR#: [id number] Acct: [id number] Name: GALINDO JOHNSTON Rep #:[id number] : 1980 44 From: Marvel Corley MD PCP: Dr. Inocencio Frye MD Status:RE G ER Location: ED HPI History of Present Illness Chief Complaint: Weakness Informant: patient Onset/Context/Timing Onset: Weeks Context: Gradual Onset Timing: Continuous Current Severity: Mild Maximum Severity: Mild Narrative Narrative: 44-year-old female has been having heavy vaginal bleeding for months. Is set upto have a hysterectomy done by Dr. Roxanna Cody this coming Thursday. Patient states she has been having more bleeding. She is on no blood thinners. And just feels weak. Prior transfusion of several units of blood.And iron. G3, P2 Ab1 with having a miscarriage. Prior similar symptoms: Yes Recent Illness/Hospitalization: No PFSH PFSH Medical History delivery delivered Wears glasses Menorrhagia, premenopausal Iron deficiency anemia Anxiety Former smoker Home Medications ?Medication ?Instructions ?Recorded ?Last Taken ?Type cholecalciferol (vitamin D3) 100 100 mcg PO DAILY lori min 08/30/24 Unknown History mcg (4,000 unit) capsule escitalopram oxalate 20 mg tablet 20 mg PO DAILY [facility] 08/30/24 Unknown History ferrous gluconate 324 mg (38 mg 324 mg PO DAILY 30 day s #30 tabs 08/31/24 Unknown Rx iron) tablet ascorbate calcium (vitamin C) 500 500 mg PO QDAY 09/09 Unknown History mg tablet levocetirizine 5 mg tablet 5 mg PO QDAY 09/09/24 Unkno wn History megestrol 40 mg tablet 40 mg PO QDAY #30 tabs 10/04 Unknown Rx ropinirole 1 mg tablet 1 mg PO QHS 10/25/24 Unknown History Allergy/AdvReac Type Severity Reaction Status Date / Time codeine Allergy PT UNSURE Verified 11/06/24 16:09 OF REACTION Surgical History Tubal ligation status H/O wisdom tooth extraction Social History Smoking Status: Former smoker ROS ROS ED ROS Narrative Heavier than normal vaginal bleeding. Generalized weakness. Constitutional Constitutional ED: Denies chills or fever(s) Eyes Eyes: Denies blurry vision ENT ENT ED: Denies ear pain Cardiovascular Cardiovascular: Denies chest pain Respiratory/Chest Respiratory/Chest: Denies cough or dyspnea Gastrointestinal Gastrointestinal: Denies abdominal pain Genitourinary Genitourinary ED: Denies dysuria or hematuria Musculoskeletal Musculoskeletal: Denies arthralgias or back pain Integumentary Denies abscess or Abrasions Neurologic Neurologic: Denies headache(s) Psychiatric Psychiatric: Denies anxiety or depression Endocrine Endocrinology: Denies cold intolerance Hematologic/Lymphatic Hematologic/Lymphatic: Reports anemia Allergic/Immunologic Allergic/Immunologic ED: Denies mouth swelling, tongue swelling or urticaria EXAM Physical Exam Narrative Exam Narrative: well appearing 44-year-old female. Vital signs stable afebrile. H EENT exam pupils round react light. Moist extremities. Neck nontender no JVD. Lungs clear to auscultation bilaterally. Heart regular rhythm rate about 95 no murmur. Chest wall ribs nontender. Abdomen soft nontender. Moving all 4 extremities. Nontender no edema. Normal strength. Normal range of motion. Back nontender. Neurologicallypatient is awake alert. Answering questions following commands. Does appear to be mildly pale. Const Vital Signs: 11/06/24 16:07 11/06/24 16:46 11/06/24 17:06 Temperature 97.4 F L Temperature Source Oral Pulse Rate 94 84 Respiratory Rate 18 18 Respiratory Effort Normal Non-Labored Respiratory Pattern Normal Blood Pressure 108/63 115/66 Blood Pressure Mean 78 82 Pulse Ox 96 100 Oxygen Delivery Method Room Air Room Air Positive well developed; Negative for cachectic, contractures or unkempt General Appearance ED: well developed, NAD and pallor; Negative for unkempt, cachectic, contractures, cyanotic or diaphoretic Nutritional Appearance: Negative for cachectic HEENT Reports moist mucous membranes Eyes PERRL and EOMs intact bilaterally General Eye ED: Yes pale conjunctiva Neck no lymphadenopathy, supple and no JVD Chest Wall inspection of chest normal and palpation of chest normal Resp normal respiratory effort and clear to auscultation bilaterally Cardio regular rate, regular rhythm, S1 normal heart sound, S2 normal heart sound and no murmurs GI normal to inspection, nondistended, normoactive bowel sounds, non-tender, non- distended and no masses Auscultation: normoactive bowel sounds Palpation: soft; Negative for tender, guarding, mass or rebound tenderness present Back/Spine no CVA tenderness General Back: Negative for CVA tenderness Cervical Spine: Negative for cervical spine tenderness Thoracic Spine / Upper Back: Negative for thoracic spinal tenderness or paraspinal muscle tenderness Lumbar Spine / Lower Back: Negative for lumbar spinal tenderness Extremity normal to inspection General Extremety ED: Negative for edema or tenderness General Extremity: Negative for edema Neuro oriented x3 and CN's II-XII intact bilaterally Sensorium / Orientation: alert Motor Exam: strength 5/5 throughout Psych mental status grossly normal Appearance: Negative for unkempt Skin no rashes or lesions noted, no wounds and skin turgor normal General Skin Exam: elasticity normal and pallor; Negative for jaundice Lesions: No lesion noted Rashes: No rashes noted Trauma: Negative for abrasion Wounds: Negative for wounds noted MDM MDM MDM Narrative Medical decision making narrative: 44-year-old female history of menorrhagia being set up for a hysterectomy in 2days. Feels generallyweak. Has needed a blood transfusion in the past. Screening labs will be obtained including blood count type and screen. Repeat exam patient is doing well at 5:42 PM. We whenever her blood counts. 2 weeks ago her hemoglobin was 10.6 and is now 7.8. She said her bleeding was worse several days ago it is mild today. I have Dr. Olive Mckinney on page for Dr. Cody. To discuss a plan. Dr. Olive Mckinney and I discussed the patient's case. Patient will get a repeat blood count onTuesday prior to surgery at that time they can decide to have the surgery or transfuser or cancel surgery or do the surgery and transfuser. If the patient has heavier bleeding to return to the emergency department. I discussed all this with the patient and her at bedside they are comfortable with the plan. Comfortable being discharged. She is goingto increase her Megace from 40 mg daily to twice a day. History & Record Review Discussion w/independent historian: Patient Additional record(s) reviewed:: Prior inpatient record, Prior outpatient record,Prior ED visit and Prior labs Lab Data Attestation: I reviewed the patient's lab results. Lab results narrative: CBC shows a white count 7.4. H&H is 7.8 and 25.5. Previously on 25 October she was 10.6 and 34.8. Platelets 284. Chemistry shows sodium 139. Gap 11. BUN/creatinine fourteen 0.7. Glucose 114. Serum test negative. Labs: Laboratory Results - last 24 hr 11/06/24 16:40 WBC 7.4 RBC 2.80 L Hgb 7.8 L Hct 25.5 L MCV 91.1 MCH 27.9 MCHC 30.6 L RDW Std Deviation 49.8 H RDW Coeff of Aristides 17.1 H Plt Count 284 MPV 12.3 H Immature Gran % (Auto) 0.500 Neut % (Auto) 82.3 H Lymph % (Auto) 8.5 L [place] % (Auto) 7.9 Eos % (Auto) 0.1 Baso % (Auto) 0.7 Absolute Neuts (auto) 6.1 Absolute Lymphs (auto) 0.63 L Nucleated RBC % 0 Sodium 139 Potassium 3.6 Chloride 108 Carbon Dioxide 20.6 L Anion Gap 11 BUN 14 Creatinine 0.73 Estim Creat Clear Calc 83.15 Est GFR (MDRD) Non-Af 103 BUN/Creatinine Ratio 19.0 Glucose 114 H Calcium 8.8 Serum , Qual NEGATIVE Discharge Plan Triage Chief Complaint: Weakness ED Provider: Marvel Corley Dx/Rx/DC Orders Clinical Impression: Menorrhagia, Fibroid uterus, Anemia Instructions: Anemia, ED Dysfunctional Uterine Bleeding, ED Uterine Fibroids Prescriptions: No Action ascorbate calcium (vitamin C) 500 mg tablet 500 mg PO QDAY levocetirizine 5 mg tablet 5 mg PO QDAY escitalopram oxalate 20 mg tablet 20 mg PO DAILY cholecalciferol (vitamin D3) 100 mcg (4,000 unit) capsule 100 mcg PO DAILY ferrous gluconate 324 mg (38 mg iron) tablet 324 mg PO DAILY 30 Days Qty: 30 0RF ropinirole 1 mg tablet 1 mg PO QHS megestrol 40 mg tablet 40 mg PO QDAY Qty: 30 0RF Primary Care Provider: Inocencio Frye Referrals: Inocencio Frye MD [Primary Care Provider] - Roxanna King DO [Med Staff - Active Staff] - Keep Jo-Ann appointment Activity Restrictions/Additional Instructions: Increase your Megestrol to 40 mg twice a day. If you have heavier bleeding just return to the emergency department. Prior to your surgery on Thursday or there we will recheck a blood count. Will make a decision at that time whether to do the surgery and transfuse you blood. Or if need be cancel the surgery. Print Language: Algerian Disposition Disposition: Home, Self Care What to do if you have Problems For any increased pain, shortness of breath, bleeding, nausea or vomiting, chestpain, or any unexpected problems, contact your Primary Care Provider. Call [facility] ([phone]) or report tothe closest Emergency Room. Call 911 if necessary. 11/06/24 9380 Cosigner Signature (if applicable): CC: Dr. Inocencio Frye MD ~ Signed [facility]09-14-2025 Discharge summary Author Marvel Corley [facility] Note Date/Time November 06, 2024 5:58pm [facility] Medical Records Department [address] [place] [address] Emergency Department Summary 11/06/24 MR#: [id number] Acct: [id number] Name: GALINDO JOHNSTON Rep #:[id number] : 1980 44 From: Marvel Corley MD PCP: Dr. Inocencio Frye MD Status:RE G ER Location: ED HPI History of Present Illness Chief Complaint: Weakness Informant: patient Onset/Context/Timing Onset: Weeks Context: Gradual Onset Timing: Continuous Current Severity: Mild Maximum Severity: Mild Narrative Narrative: 44-year-old female has been having heavy vaginal bleeding for months. Is set upto have a hysterectomy done by Dr. Roxanna Cody this coming Thursday. Patient states she has been having more bleeding. She is on no blood thinners. And just feels weak. Prior transfusion of several units of blood. And iron. G3, P2 Ab1 with having a miscarriage. Prior similar symptoms: Yes Recent Illness/Hospitalization: No PFSH PFSH Medical History delivery delivered Wears glasses Menorrhagia, premenopausal Iron deficiency anemia Anxiety Former smoker Home Medications ?Medication ?Instructions ?Recorded ?Last Taken ?Type cholecalciferol (vitamin D3) 100 100 mcg PO DAILY lori min 08/30/24 Unknown History mcg (4,000 unit) capsule escitalopram oxalate 20 mg tablet 20 mg PO DAILY [employer] [facility] 08/30/24 Unknown History ferrous gluconate 324 mg (38 mg 324 mg PO DAILY 30 day s #30 tabs 08/31/24 Unknown Rx iron) tablet ascorbate calcium (vitamin C) 500 500 mg PO QDAY 09/09 Unknown History mg tablet levocetirizine 5 mg tablet 5 mg PO QDAY 09/09/24 Unkno wn History megestrol 40 mg tablet 40 mg PO QDAY #30 tabs 10/04 Unknown Rx ropinirole 1 mg tablet 1 mg PO QHS 10/25/24 Unknown History Allergy/AdvReac Type Severity Reaction Status Date / Time codeine Allergy PT UNSURE Verified 11/06/24 16:09 OF REACTION Surgical History Tubal ligation status H/O wisdom tooth extraction Social History Smoking Status: Former smoker ROS ROS ED ROS Narrative Heavier than normal vaginal bleeding. Generalized weakness. Constitutional Constitutional ED: Denies chills or fever(s) Eyes Eyes: Denies blurry vision ENT ENT ED: Denies ear pain Cardiovascular Cardiovascular: Denies chest pain Respiratory/Chest Respiratory/Chest: Denies cough or dyspnea Gastrointestinal Gastrointestinal: Denies abdominal pain Genitourinary Genitourinary ED: Denies dysuria or hematuria Musculoskeletal Musculoskeletal: Denies arthralgias or back pain Integumentary Denies abscess or Abrasions Neurologic Neurologic: Denies headache(s) Psychiatric Psychiatric: Denies anxiety or depression Endocrine Endocrinology: Denies cold intolerance Hematologic/Lymphatic Hematologic/Lymphatic: Reports anemia Allergic/Immunologic Allergic/Immunologic ED: Denies mouth swelling, tongue swelling or urticaria EXAM Physical Exam Narrative Exam Narrative: well appearing 44-year-old female. Vital signs stable afebrile. H EENT exam pupils round react light. Moist extremities. Neck nontender no JVD. Lungs clear to auscultation bilaterally. Heart regular rhythm rate about 95 no murmur. Chest wall ribs nontender. Abdomen soft nontender. Moving all 4 extremities. Nontender no edema. Normal strength. Normal range of motion. Back nontender. Neurologically patient is awake alert. Answering questions following commands. Does appear to be mildly pale. Const Vital Signs: 11/06/24 16:07 11/06/24 16:46 11/06/24 17:06 Temperature 97.4 F L Temperature Source Oral Pulse Rate 94 84 Respiratory Rate 18 18 Respiratory Effort Normal Non-Labored Respiratory Pattern Normal Blood Pressure 108/63 115/66 Blood Pressure Mean 78 82 Pulse Ox 96 100 Oxygen Delivery Method Room Air Room Air Positive well developed; Negative for cachectic, contractures or unkempt General Appearance ED: well developed, NAD and pallor; Negative for unkempt, cachectic, contractures, cyanotic or diaphoretic Nutritional Appearance: Negative for cachectic HEENT Reports moist mucous membranes Eyes PERRL and EOMs intact bilaterally General Eye ED: Yes pale conjunctiva Neck no lymphadenopathy, supple and no JVD Chest Wall inspection of chest normal and palpation of chest normal Resp normal respiratory effort and clear to auscultation bilaterally Cardio regular rate, regular rhythm, S1 normal heart sound, S2 normal heart sound and no murmurs GI normal to inspection, nondistended, normoactive bowel sounds, non-tender, non-distended and no masses Auscultation: normoactive bowel sounds Palpation: soft; Negative for tender, guarding, mass or rebound tenderness present Back/Spine no CVA tenderness General Back: Negative for CVA tenderness Cervical Spine: Negative for cervical spine tenderness Thoracic Spine / Upper Back: Negative for thoracic spinal tenderness or paraspinal muscle tenderness Lumbar Spine / Lower Back: Negative for lumbar spinal tenderness Extremity normal to inspection General Extremety ED: Negative for edema or tenderness General Extremity: Negative for edema Neuro oriented x3 and CN's II-XII intact bilaterally Sensorium / Orientation: alert Motor Exam: strength 5/5 throughout Psych mental status grossly normal Appearance: Negative for unkempt Skin no rashes or lesions noted, no wounds and skin turgor normal General Skin Exam: elasticity normal and pallor; Negative for jaundice Lesions: No lesion noted Rashes: No rashes noted Trauma: Negative for abrasion Wounds: Negative for wounds noted MDM MDM MDM Narrative Medical decision making narrative: 44-year-old female history of menorrhagia being set up for a hysterectomy in 2days. Feels generally weak. Has needed a blood transfusion in the past. Screening labs will be obtained including blood count type and screen. Repeat exam patient is doing well at 5:42 PM. We whenever her blood counts. 2 weeks ago her hemoglobin was 10.6 and is now 7.8. She said her bleeding was worse several days ago it is mild today. I have Dr. Olive Mckinney on page for Dr. Cody. To discuss a plan. Dr. Olive Mckinney and I discussed the patient's case. Patient will get a repeat blood count on Thursday prior to surgery at that time they can decide to have the surgery or transfuser or cancel surgery or do the surgery and transfuser. If the patient has heavier bleeding to return to the emergency department. I discussed all this with the patient and her at bedside they are comfortable with the plan. Comfortable being discharged. She is goingto increase her Megace from 40 mg daily to twice a day. History & Record Review Discussion w/independent historian: Patient Additional record(s) reviewed:: Prior inpatient record, Prior outpatient record,Prior ED visit and Prior labs Lab Data Attestation: I reviewed the patient's lab results. Lab results narrative: CBC shows a white count 7.4. H&H is 7.8 and 25.5. Previously on 25 October she was 10.6 and 34.8. Platelets 284. Chemistry shows sodium 139. Gap 11. BUN/creatinine fourteen 0.7. Glucose 114. Serum test negative. Labs: Laboratory Results - last 24 hr 11/06/24 16:40 WBC 7.4 RBC 2.80 L Hgb 7.8 L Hct 25.5 L MCV 91.1 MCH 27.9 MCHC 30.6 L RDW Std Deviation 49.8 H RDW Coeff of Aristides 17.1 H Plt Count 284 MPV 12.3 H Immature Gran % (Auto) 0.500 Neut % (Auto) 82.3 H Lymph % (Auto) 8.5 L [place] % (Auto) 7.9 Eos % (Auto) 0.1 Baso % (Auto) 0.7 Absolute Neuts (auto) 6.1 Absolute Lymphs (auto) 0.63 L Nucleated RBC % 0 Sodium 139 Potassium 3.6 Chloride 108 Carbon Dioxide 20.6 L Anion Gap 11 BUN 14 Creatinine 0.73 Estim Creat Clear Calc 83.15 Est GFR (MDRD) Non-Af 103 BUN/Creatinine Ratio 19.0 Glucose 114 H Calcium 8.8 Serum , Qual NEGATIVE Discharge Plan Triage Chief Complaint: Weakness ED Provider: Marvel Corley Dx/Rx/DC Orders Clinical Impression: Menorrhagia, Fibroid uterus, Anemia Instructions: Anemia, ED Dysfunctional Uterine Bleeding, ED Uterine Fibroids Prescriptions: No Action ascorbate calcium (vitamin C) 500 mg tablet 500 mg PO QDAY levocetirizine 5 mg tablet 5 mg PO QDAY escitalopram oxalate 20 mg tablet 20 mg PO DAILY cholecalciferol (vitamin D3) 100 mcg (4,000 unit) capsule 100 mcg PO DAILY ferrous gluconate 324 mg (38 mg iron) tablet 324 mg PO DAILY 30 Days Qty: 30 0RF ropinirole 1 mg tablet 1 mg PO QHS megestrol 40 mg tablet 40 mg PO QDAY Qty: 30 0RF Primary Care Provider: Inocencio Frye Referrals: Inocencio Frye MD [Primary Care Provider] - Roxanna King DO [Med Staff - Active Staff] - Keep Jo-Ann appointment Activity Restrictions/Additional Instructions: Increase your Megestrol to 40 mg twice a day. If you have heavier bleeding just return to the emergency department. Prior to your surgery on Thursday or there we will recheck a blood count. Will make a decision at that time whether to do the surgery and transfuse you blood. Or if need be cancel the surgery. Print Language: Algerian Disposition Disposition: Home, Self Care What to do if you have Problems For any increased pain, shortness of breath, bleeding, nausea or vomiting, chestpain, or any unexpected problems, contact your Primary Care Provider. Call [facility] ([phone]) or report to the closest Emergency Room. Call 911 if necessary. 11/06/24 8588 <Electronically signed by Marvel Corley MD> Cosigner Signature (if applicable): CC: Dr. Inocencio Frye MD ~ Signed [facility] Work Phone: 1(943) 337-339607-09-2025 Discharge summary [facility] Medical Records Department [address] [place] [address] Instructions for Home/Discharge Instructions 08/31/24 1253 MR#: [id number] Acct: [id number] Name: GALINDO JOHNSTON Rep #:[id number] : 1980 44 From: Lori Conrad MD PCP: Dr. Inocencio Frye MD Status:AD M ROMINA Discharge Instructions Diet Discharge Diet: No restrictions DC O2, CPAP, BIPAP needs Home O2 Discharge instructions: No Dressing / Incision Discharge Activity: Return to Normal Activity May resume sexual activity in: - (Please defer sexual intercourse until cleared per Supervisor Rides at follow-up.) Weight Bearing Status: Weight bearing [...] Instructions / Restrictions: ADDITIONAL INSTRUCTIONS/PLAN OF CARE: --spreader operator would like you to continue medroxyprogesterone 5 mg tablet daily until you have your firstcycle at which point they would like you to immediately callthem and likely they will increase thisdose to 10 mg daily at that time. -- Please continue newly initiated oral iron supplementation which may be increased outpatient pending her toleration of this medication. It sometimes can cause constipation therefore ctew-sci-jgiwsbs stool softeners may be used aswell. --Please have follow-up complete blood count at follow-up with your primary carephysician as noted. --spreader operator office will contact you to arrange visit so that you also may have biopsy arranged as wellas plan for upcoming robotic hysterectomy. --If at any point you have onset of heavy bleeding please immediately contact the spreader operator office. Discharge Orders/Prescriptions Prescriptions: New medroxyprogesterone 5 mg tablet 5 mg PO DAILY 30 Days Qty: 30 0RF Rx Instructions: Stain Applicator would like you to call them when [...] [Med Staff - Active Staff] - (The Stain Applicator office will contact you with a visit.) Disposition Disposition (needs filled in before D/C Order can be placed): Home, Self Care 08/31/24 1253Aericka Conrad MD CC: Dr. Roxanna King DO; Dr. Inocencio Frye MD; Dr. Johnny Zamora MD ~ Signed [facility]07-09-2025 Consult note [facility] Medical Records Department [address] [place] [address] Consultation - HOG ROOM SUPERVISOR 08/31/24 0802 MR#: [id number] Acct: [id number] Name: GALINDO JOHNSTON Rep #:[id number] : 1980 44 From: Roxanna King DO PCP: Dr. Inocencio Frye MD Status:AD M ROMINA Location: [place] [address] Assessment & Plan (1) Menorrhagia, premenopausal: (2) [...] P 2 (2 sections) who presents to [facility] for iron deficiency anemia. She states that she was feeling fine but her pcp calledher after routine blood work was done at his offic and told her to go to the ER.She was given 2 units of PRBCs and IV iron.I was consulted todiscuss menorrhagia as being the cause of her anemia. LMP: middle of july- very heavy. uses a super plus tampon every hour medications tried in the past: none Was seeing Dr. Chandra at [facility] until 2021 Last pap: 2021 - [...] mg tablet 20 mg PO DAILY [facility] 08/30/24 Unknown History ropinirole 0.5 mg tablet [...] % (Auto) 61.1, Lymph % (Auto) 22.6, [place] % (Auto) 12.7 H, Eos % (Auto) 2.2, Baso % (Auto) 1.0, AbsoluteNeuts (auto) 3.0, Absolute Lymphs (auto) 1.12, Nucleated RBC % 0, Sodium 139, Potassium 3.8, Chloride 106, Carbon Dioxide 19.2 L, Anion Gap 13, BUN 8, Creatinine 0.66 L, Estim Creat Clear Calc 99.69, Est GFR (MDRD) Non-Af 109, BUN/Creatinine Ratio 12.8, Glucose 97, Calcium 9.2, Magnesium2.2, Blood Type O POSITIVE, Antibody Screen NEGATIVE, [...] % (Auto) 67.1, Lymph % (Auto) 16.0L, [place] % (Auto) 13.8 H, Eos % (Auto) 1.7, Baso % (Auto) 1.2 H,Absolute Neuts (auto) 2.8, Absolute Lymphs (auto) 0.66 L, Nucleated RBC % 0 Micro: Microbiology 08/30/24 15:46 Stool Stool Occult Blood (MOJGAN) - Final Charges/Coding Visit Charges Inpatient E&M: 28655 Init Hosp L3 08/31/24 1314 Cosigner Signature (if applicable): CC: Dr. Inocencio Frye MD~ Signed [facility]07-09-2025 Discharge summary [facility] Medical Records Department [address] [place] [address] Discharge Summary 08/31/24 1254 MR#: [id number] Acct: [id number] Name: GALINDO JOHNSTON Rep #:[id number] : 1980 44 From: Lori Conrad MD PCP: Dr. Inocencio Frye MD Status:[facility] Location: [place] [address] Providers Date of Admission: 08/30/24 Date of Discharge: 08/31/24 Primary Care Physician: Dr. Inocencio Frye MD Consultations 08/31/24 07:06 Consult: HOG ROOM SUPERVISOR Routine Consulting Provider: Roxanna King Reason for Consult: Heavy cycles EMERGENT Consult: No MD Notified: Yes Date Notified: 07/09/25 Time Notified: 07:08 Method of Notification: Text [...] tobacco use, RLS who presents to the [facility] ED on 08/30/2024 secondary to recently performed outpatient labs per PCP with significantly decreased hemoglobin at 5.5 despite no marked significant symptoms with recent cycle completed 1 week previous noted to be as usual extremely heavy lasting at least 7 days more heavyover the first initial 2. Given significantly decreased hemoglobin which was confirmed in ED patient was administered 2 unit PRBC. Patient was admitted to PCU, iron studies were obtained and patient was initiated on IV iron transfusions eventually transition to oral supplementation at discharge. Transvaginal ultrasound was obtained with noted significant 6.5 cm x 6.7 cm x 6.5 cm subendometrial fibroid. spreader operator was consulted and discussed case at length [...] 10 mg however would be arranged via Stain Applicator discussion inaddition to plan follow-up which Stain Applicator office would arrange for planned biopsy andfuture [...] % (Auto) 61.1, Lymph % (Auto) 22.6, [place] % (Auto) 12.7 H, Eos % (Auto) 2.2, Baso % (Auto) 1.0, AbsoluteNeuts (auto) 3.0, Absolute Lymphs (auto) 1.12, Nucleated RBC % 0, Sodium 139, Potassium 3.8, Chloride 106, Carbon Dioxide 19.2 L, Anion Gap 13, BUN 8, Creatinine 0.66 L, Estim Creat Clear Calc 99.69, Est GFR (MDRD) Non-Af 109, BUN/Creatinine Ratio 12.8, Glucose 97, Calcium 9.2, Magnesium2.2, Blood Type O POSITIVE, Antibody Screen NEGATIVE, [...] % (Auto) 67.1, Lymph % (Auto) 16.0L, [place] % (Auto) 13.8 H, Eos % (Auto) 1.7, Baso % (Auto) 1.2 H,Absolute Neuts (auto) 2.8, Absolute Lymphs (auto) 0.66 L, Nucleated RBC % 0, Anisocytosis 2+, Sodium 139, Potassium 3.8, Chloride 108, Carbon Dioxide 20.5 L, Anion Gap 11, BUN 4, Creatinine 0.62 L, Estim Creat Clear Calc 106.00, Est GFR (MDRD) Non- Af 111, BUN/Creatinine Ratio 7.0 L, Glucose 99, Calcium 8.8, TSH 2.870, Free T4 1.10 Microbiology: Microbiology 08/30/24 15:46 Stool Stool Occult Blood (MOJGAN) - Final Radiography Diagnostic Testing: Radiology Impression Transvaginal US 08/31/24 07:09 IMPRESSION: Findings suggestive of a 6.5 cm 6.7 cm 6.5 cm subendometrial fibroid. Reading Location: [place] [address] D/C Instructions Discharge Diet: No restrictions May resume sexual activity in: - (Please defer sexual intercourse until cleared per Supervisor Rides at follow-up.) Weight Bearing Status: Weight bearing [...] Instructions / Restrictions: ADDITIONAL INSTRUCTIONS/PLAN OF CARE: --spreader operator would like you to continue medroxyprogesterone 5 mg tablet daily until you have your firstcycle at which point they would like you to immediately callthem and likely they will increase thisdose to 10 mg daily at that time. -- Please continue newly initiated oral iron supplementation which may be increased outpatient pending her toleration of this medication. It sometimes can cause constipation therefore uliq-pqc-slziesg stool softeners may be used aswell. --Please have follow-up complete blood count at follow-up with your primary carephysician as noted. --spreader operator office will contact you to arrange visit so that you also may have biopsy arranged as wellas plan for upcoming robotic hysterectomy. --If at any point you have onset of heavy bleeding please immediately contact the spreader operator office. Discharge Orders/Prescriptions Prescriptions: New medroxyprogesterone 5 mg tablet 5 mg PO DAILY 30 Days Qty: 30 0RF Rx Instructions: Stain Applicator would like you to call them when [...] [Med Staff - Active Staff] - (The Stain Applicator office will contact you with a visit.) Disposition Disposition (needs filled in before D/C Order can be placed): Home, Self Care Charges/Coding Visit Charges Inpatient E&M: 79778 Disch Hosp >30min 08/31/24 1300 Cosigner Signature (if applicable): CC: Dr. Lori Conrad MD; Dr. Inocencio Frye MD~ Signed [facility]07-09-2025 [facility] Medical Records Department [address] [place] [address] Discharge Summary 08/31/24 1254 MR#: [id number] Acct: [id number] Name: GALINDO JOHNSTNO Rep #: [id number] : 1980 44 From: Lori Conrad MD PCP: Dr. Inocencio Frye MD Status:ADM ROMINA Location: [place] [address] Providers Date of Admission: 08/30/24 Date of Discharge: 08/31/24 Primary Care Physician: Dr. Inocencio Frye MD Consultations 08/31/24 07:06 Consult: HOG ROOM SUPERVISOR Routine Consulting Provider: Roxanna King Reason for [...] tobacco use, RLS who presents to the [facility] ED on 08/30/2024 secondary to recently [...] 6.7 cm x 6.5 cm subendometrial fibroid. spreader operator was consulted and discussed case at length [...] 10 mg however would be arranged via Stain Applicator discussion in addition to plan follow-up which Stain Applicator office would arrange for planned biopsy and [...] cranial nerves II-XII gr (more content not included)...[facility]07-09-2025 Radiology Diagnostic study note [facility] Imaging Services [facility] [address] [place], [place] [id number] Transvaginal Non- MR#: [id number] Acct: [id number] Name: GALINDO JOHNSTON Rep #: [id number] : 1980 F 44 From: Jose A Stanton MD PCP: Dr. Inocencio Frye MD Status: AD M ROMINA Study:Transvaginal Non- Date of Exam: 08/31/24 Exam# [id number] Ordering Dr: Radha Conrad MD PROCEDURE: TRANSVAGINAL [...] cm 6.5 cm subendometrial fibroid. Reading Location: [facility] CC: Dr. Lori Conrad MD; Dr. Inocencio Frye MD ~ Provider Relations Representative: Signed [facility]07-09-2025 Consult note Author Roxanna Thurman [facility] Note Date/Time August 31, 2024 1:14p m [facility] Medical Records Department [address] [place] [address] Consultation - HOG ROOM SUPERVISOR 08/31/24 0802 MR#: [id number] Acct: [id number] Name: GALINDO JOHNSTON Rep #:[id number] : 1980 44 From: Roxanna King DO PCP: Dr. Inocencio Frye MD Status:CHER Pinto ROMINA Location: [place] [address] Assessment & Plan (1) Menorrhagia, premenopausal: (2) [...] P 2 (2 sections) who presents to [facility] for iron deficiency anemia. She states [...] past: none Was seeing Dr. Chandra at [facility] until 2021 Last pap: 2021 - [...] mg tablet 20 mg PO DAILY [facility] 08/30/24 Unknown History ropinirole 0.5 mg tablet [...] % (Auto) 61.1, Lymph % (Auto) 22.6, [place] % (Auto) 12.7 H, Eos % (Auto) [...] % (Auto) 67.1, Lymph % (Auto) 16.0L, [place] % (Auto) 13.8 H, Eos % (Auto) 1.7, Baso % (Auto) 1.2 H, Absolute Neuts (auto) 2.8, Absolute Lymphs (auto) 0.66 L, Nucleated RBC % 0 Micro: Microbiology 08/30/24 15:46 Stool Stool Occult Blood (MOJGAN) - Final Charges/Coding Visit Charges Inpatient E&M: 94682 Init Hosp L3 08/31/24 1314 <Electronically signed by Roxanna King DO> Cosigner Signature (if applicable): CC: Dr. Inocencio Frye MD~ Signed [facility] Work Phone: 1(241) 246-697007-08-2025 History and physical note Author Johnny Zamora [facility] Note Date/Time August 30, 2024 8:08p [facility] Medical Records Department [address] [place] [address] H&P Exam - Hospitalist 08/30/24 1852 MR#: [id number] Acct: [id number] Name: GALINDO JOHNSTON Rep #:[id number] : 1980 44 From: Johnny Soto PCP: Dr. Inocencio Frye MD Status:CHER VANEGAS Location: [place] [address] HPI - General General Date of Admission: [...] on vitals including heart rate became normal [facility] Medical History Anxiety Former smoker Medical History [...] % (Auto) 61.1, Lymph % (Auto) 22.6, [place] % (Auto) 12.7 H, Eos % (Auto) [...] a.m. Monitor vitals. She recently has changed BRASS MOLDER to Dr. Mckinney but has not seen her yet. Her previous BRASS MOLDER wanted to put on hormonal pills but [...] kin. She does nothave designated power of business attorney for health. After discussion of benefits/risks procedures involved with full code, DNR CC arrest and DNR CC, the patient opted for full code. Patient does want artificial life support including intubation, tube feed, ventilator and/chest compression, central venous catheter, vasopressor and DC shock if needed Total time spent in tofp-cy-ckye encounter in discussion of advanced directive 17 [...] % (Auto) 61.1, Lymph % (Auto) 22.6, [place] % (Auto) 12.7 H, Eos % (Auto) [...] See Detail Charges/Coding Visit Charges Inpatient E&M: 96547 Init Hosp L3 Procedures Hospitalists Procedures: 32425 Advncd Care Plan 30 Min 08/30/242007 <Electronically signed by Johnny Zamora MD> Cosigner Signature (if applicable): CC: Dr. Inocencio Frye MD; Dr. Johnny Zamora MD~ Signed [facility] Work Phone: 1(680) 453-471407-08-2025 Discharge summary Author Joselito Maldonado [facility] Note Date/Time August 30, 2024 7:03p [facility] Medical Records Department [address] [place] [address] Emergency Department Summary 08/30/24 MR#: [id number] Acct: [id number] Name: GALINDO JOHNSTON Rep #:[id number] : [...] intact Psych: Cooperative, appropriate mood and affect PFS PFSH Medical History no medical history Home [...] % (Auto) 61.1 Lymph % (Auto) 22.6 [place] % (Auto) 12.7 H Eos % (Auto) [...] MD [Primary Care Provider] - Print Language: Algerian What to do if you have Problems For any increased pain, shortness of breath, bleeding, nausea or vomiting, chestpain, or any unexpected problems, contact your Primary Care Provider. Call [facility] ([phone]) or report to the closest Emergency Room. Call 911 if necessary. 08/30/241902 <Electronically signed by Joselito Maldonado DO> Cosigner Signature (if applicable): CC: Dr. Inocencio Frye MD ~ Signed [facility] Work Phone: 1(262) 413-622507-08-2025 Evaluation note* Diagnosis Onset Date Resolution Status Admit Date Acute blood loss anemia acute J isaiah 2024 6:51pm Menorrhagia, premenopausal acute August 30, 2024 6:51pm Iron deficiency anemia chronic Ju ly 2024 6:51pm [facility] Work Phone: 1(592) 138-516707-08-2025 Evaluation note* Diagnosis Onset Date Resolution Status Admit Date Acute blood loss anemia resolved J [email or web address] 6:51pm Iron deficiency anemia inactive Ju ly 2024 6:51pm Menorrhagia, premenopausal inactive August 30, 2024 6:51pm Fibroid uterus acute September 09, 2024 1:10pm Menorrhagia acute September 09 1:10pm [facility] Work Phone: 1(263) 708-737307-08-2025 Evaluation note* Diagnosis Onset Date Resolution Status Admit Date Acute blood loss anemia resolved [email or web address] 6:51pm Iron deficiency anemia inactive Ju ly 2024 6:51pm Menorrhagia, premenopausal inactive August 30, 2024 6:51pm Fibroid uterus acute September 09, 2024 1:10pm Menorrhagia acute September 09 1:10pm Fibroid uterus acute September 10:02am Menorrhagia acute October 21, 2024 10:02am [facility] Work Phone: 1(633) 449-773807-08-2025 Evaluation note* Diagnosis Onset Date Resolution Status Admit Date Acute blood loss anemia resolved J [email or web address] 6:51pm Iron deficiency anemia inactive Ju ly 2024 6:51pm Menorrhagia, premenopausal inactive August 30, 2024 6:51pm Fibroid uterus acute September 09, 2024 1:10pm Menorrhagia acute September 09 1:10pm Fibroid uterus acute September 10:02am Menorrhagia acute October 21, 2024 10:02am Anemia acute October 8:02am Fibroid uterus acute November 08, 2024 8:02am Menorrhagia acute October 8:02am [facility] Work Phone: 1([phone]) 110-921007-08-2025 Evaluation note* Diagnosis Onset Date Resolution Status Admit Date Acute blood loss anemia resolved J isaiah 2024 6:51pm Iron deficiency anemia inactive Ju ly 2024 6:51pm Menorrhagia, premenopausal inactive August 30, 2024 6:51pm Fibroid uterus acute September 09, 2024 1:10pm Menorrhagia acute September 09 1:10pm Fibroid uterus acute September 10:02am Menorrhagia acute October 21, 2024 10:02am Fibroid uterus acute November 08, 2024 8:02am Menorrhagia acute October 8:02am Anemia inactive October 8:02am Status post hysterectomy acute November 21, 2024 10:52am [facility] Work Phone: 1(156) 809-317107-08-2025 History and physical note [facility] Medical Records Department [address] [place] [address] H&P Exam - Hospitalist 08/30/24 1852 MR#: [id number] Acct: [id number] Name: GALINDO JOHNSTON Rep #:[id number] : 1980 44 From: Johnny Soto PCP: Dr. Inocencio Frye MD Status:CHER VANEGAS Location: [place] [address] HPI - General General Date of Admission: [...] on vitals including heart rate became normal [facility] Medical History Anxiety Former smoker Medical History [...] % (Auto) 61.1, Lymph % (Auto) 22.6, [place] % (Auto) 12.7 H, Eos % (Auto) [...] a.m. Monitor vitals. She recently has changed BRASS MOLDER to Dr. Mckinney but has not seen her yet. Her previous BRASS MOLDER wanted to put on hormonal pills but [...] kin. She does nothave designated power of business attorney for health. After discussion of benefits/risks procedures involved with full code, DNR CC arrest and DNR CC, the patient opted for full code. Patient does want artificial life support including intubation, tube feed, ventilator and/chest compression, central venous catheter, vasopressor and DC shock if needed Total time spent in nisr-bq-qtnp encounter in discussion of advanced directive 17 [...] % (Auto) 61.1, Lymph % (Auto) 22.6, [place] % (Auto) 12.7 H, Eos % (Auto) [...] See Detail Charges/Coding Visit Charges Inpatient E&M: 28328 Init Hosp L3 Procedures Hospitalists Procedures: 39777 Advncd Care Plan 30 Min 08/30/242007 Cosigner Signature (if applicable): CC: Dr. Inocencio Frye MD; Dr. Johnny Zamora MD~ Signed [facility]07-08-2025 Discharge summary [facility] Medical Records Department [address] [place] [address] Emergency Department Summary 08/30/24 MR#: [id number] Acct: [id number] Name: GALINDO JOHNSTON Rep #:[id number] : [...] % (Auto) 61.1 Lymph % (Auto) 22.6 [place] % (Auto) 12.7 H Eos % (Auto) [...] MD [Primary Care Provider] - Print Language: Algerian What to do if you have Problems For any increased pain, shortness of breath, bleeding, nausea or vomiting, chestpain, or any unexpected problems, contact your Primary Care Provider. Call [facility] ([phone]) or report tothe closest Emergency Room. Call 911 if necessary. 08/30/24 1903 Cosigner Signature (if applicable): CC: Dr. Inocencio Frye MD ~ Signed [facility]07-08-2025 Discharge summary Author [facility]ito [facility] Note Date/Time August 30, 2024 7:03p m [facility] Medical Records Department [address] [place] [address] Emergency Department Summary 08/30/24 MR#: [id number] Acct: [id number] Name: GALINDO JOHNSTON Rep #:[id number] : [...] intact Psych: Cooperative, appropriate mood and affect PFS PFSH Medical History no medical history Home [...] % (Auto) 61.1 Lymph % (Auto) 22.6 [place] % (Auto) 12.7 H Eos % (Auto) [...] MD [Primary Care Provider] - Print Language: Algerian What to do if you have Problems For any increased pain, shortness of breath, bleeding, nausea or vomiting, chestpain, or any unexpected problems, contact your Primary Care Provider. Call [facility] ([phone]) or report to the closest Emergency Room. Call 911 if necessary. 08/30/241902 <Electronically signed by Joselito Maldonado DO> Cosigner Signature (if applicable): CC: Dr. Inocencio Frye MD ~ Signed [facility] Work Phone: Consult note Author Veronica Morales [facility] Note Date/Time November 08, 2024 3:14pm [facility] Medical Records Department [address] [place] [address] Anesthesia Postop Eval II 11/08/24 1513 MR#: [id number] Acct: [id number] Name: GALINDO JOHNSTON Rep #:[id number] : 1980 44 From: Veronica chin SUBACUTE NURSE PCP: Dr. Inocencio Frye MD Status:RE G SDC Y Race: C Location: [address] Anesthesia Postop Eval I Sum Postop Eval Completion status Anesthesia document: Postop Eval 1 completed: Yes Anesthesia Postop Eval I Summary Anesthesia Postop Eval I Summary: Anesthesia Postop Eval I: Assessment Summary Airway patent Yes 11/08/24 12:26 SUBACUTE NURSE.RWOO Spontaneous unlabored Yes 11/08/24 12:26 SUBACUTE NURSE.RWOO respirations Mental status nausea No 11/08/24 12:26 SUBACUTE NURSE.RWOO Vomiting No 11/08/24 12:26 SUBACUTE NURSE.RWANNELISE Anesthesia Postop Eval I: Fluid Summary Crystalloid volume administer 1,400 11/08/24 12:26 SUBACUTE NURSE.RWOO (ml) Colloids volume administered ( ml) Blood Product volume administered (ml) Total IV fluid infused 1,400 11/08/24 12:26 SUBACUTE NURSE.RWANNELISE Anesthesia Postop Eval I: Summary Notes Anesthesia Complication No 11/08/24 12:26 SUBACUTE NURSE.RWOO Anesthesia Complication Comment: Post-operative progress note Anesthesia: Postop Eval II Evaluation Mental status: Awake and Calm Pain Level: 2 nausea: No Vomiting: No Complications Anesthesia Complication: No 11/08/24 1514 <Electronically signed by Veronica moya CRNA> Date _ Veronica Morales CRNA Cosigner Signature: Date CC: ~ Signed [facility] Work Phone: Discharge summary Author Lori [facility] Note Date/Time August 31, 2024 1:57p m [facility] Medical Records Department [address] [place] [id number] Instructions for Home/Discharge Instructions 08/31/24 1253 MR#: [id number] Acct: [id number] Name: GALINDO JOHNSTON Rep #:[id number] : 1980 44 From: Lori Conrad MD PCP: Dr. Inocencio Frye MD Status:CHER VANEGAS Discharge Instructions Diet Discharge Diet: No restrictions DC O2, CPAP, BIPAP needs Home O2 Discharge instructions: No Dressing / Incision Discharge Activity: Return to Normal Activity May resume sexual activity in: - (Please defer sexual intercourse until cleared per Supervisor Rides at follow-up.) Weight Bearing Status: Weight bearing [...] Instructions / Restrictions: ADDITIONAL INSTRUCTIONS/PLAN OF CARE: --spreader operator would like you to continue medroxyprogesterone 5 [...] medication. It sometimes can cause constipation therefore dxua-axp-[id number] stool softeners may be used aswell. --Please have follow-up complete blood count at follow-up with your primary carephysician as noted. --spreader operator office will contact you to arrange visit so that you also may have biopsy arranged as well as plan for upcoming robotic hysterectomy. --If at any point you have onset of heavy bleeding please immediately contact the spreader operator office. Discharge Orders/Prescriptions Prescriptions: New medroxyprogesterone 5 mg tablet 5 mg PO DAILY 30 Days Qty: 30 0RF Rx Instructions: Stain Applicator would like you to call them when [...] complete blood count assessment.) Roxanna King DO [[facility] Staff - Active Staff] - (The Stain Applicator office will contact you with a visit.) Disposition Disposition (needs filled in before D/C Order can be placed): Home, Self Care 08/31/24 1253<Electronically signed by Lori Conrad MD>Lori Conrad MD CC: Dr. Roxanna King DO; Dr. Inocencio Frye MD; Dr. Johnny Zamora MD ~ Signed [facility] Work Phone: Discharge summary Author Lori Conrad [facility] Note Date/Time August 31, 2024 1:00p m [facility] Medical Records Department [address] [place] [address] Discharge Summary 08/31/24 1254 MR#: [id number] Acct: [id number] Name: GALINDO JOHNSTON Rep #:[id number] : 1980 44 From: Lori Conrad MD PCP: Dr. Inocencio Frye MD Status:[facility] Location: [place] [address] Providers Date of Admission: 08/30/24 Date of Discharge: 08/31/24 Primary Care Physician: Dr. Inocencio Frye MD Consultations 08/31/24 07:06 Consult: HOG ROOM SUPERVISOR Routine Consulting Provider: Roxanna King Reason for [...] tobacco use, RLS who presents to the [facility] ED on 08/30/2024 secondary to recently [...] 6.7 cm x 6.5 cm subendometrial fibroid. spreader operator was consulted and discussed case at length [...] 10 mg however would be arranged via Stain Applicator discussion in addition to plan follow-up which Stain Applicator office would arrange for planned biopsy andfuture [...] % (Auto) 61.1, Lymph % (Auto) 22.6, [place] % (Auto) 12.7 H, Eos % (Auto) [...] % (Auto) 67.1, Lymph % (Auto) 16.0L, [place] % (Auto) 13.8 H, Eos % (Auto) [...] cm 6.5 cm subendometrial fibroid. Reading Location: [facility] D/C Instructions Discharge Diet: No restrictions May resume sexual activity in: - (Please defer sexual intercourse until cleared per Supervisor Rides at follow-up.) Weight Bearing Status: Weight bearing [...] Instructions / Restrictions: ADDITIONAL INSTRUCTIONS/PLAN OF CARE: --spreader operator would like you to continue medroxyprogesterone 5 [...] medication. It sometimes can cause constipation therefore ojzl-bot-fxicbul stool softeners may be used aswell. --Please have follow-up complete blood count at follow-up with your primary carephysician as noted. --spreader operator office will contact you to arrange visit so that you also may have biopsy arranged as well as plan for upcoming robotic hysterectomy. --If at any point you have onset of heavy bleeding please immediately contact the spreader operator office. Discharge Orders/Prescriptions Prescriptions: New medroxyprogesterone 5 mg tablet 5 mg PO DAILY 30 Days Qty: 30 0RF Rx Instructions: Stain Applicator would like you to call them when [...] [Med Staff - Active Staff] - (The Stain Applicator office will contact you with a visit.) Disposition Disposition (needs filled in before D/C Order can be placed): Home, Self Care Charges/Coding Visit Charges Inpatient E&M: 89003 Disch Hosp >30min 08/31/24 1300 <Electronically signed by Lori Conrad MD> Cosigner Signature (if applicable): CC: Dr. Lori Conrad MD; Dr. Inocencio Frye MD~ Signed [facility] Work Phone: Evaluation noteNo assessment information available [facility] Work Phone: Hospital Discharge instructionsAdditional Instructions ADDITIONAL INSTRUCTIONS/PLAN OF CARE: --spreader operator would like you to continue medroxyprogesterone 5 [...] medication. It sometimes can cause constipation therefore genc-tbw-nozpgdm stool softeners may be used as well. --Please have follow-up complete blood count at follow-up with your primary care physician as noted. --spreader operator office will contact you to arrange visit so that you also may have biopsy arranged as well as plan for upcoming robotic hysterectomy. --If at any point you have onset of heavy bleeding please immediately contact the spreader operator office. [facility]: [facility] Work Phone: Hospital Discharge instructionsAdditional Instructions Increase your Megestrol to 40 mg twice a day. If you have heavier bleeding just return to the emergency department. Prior to your surgery on Thursday or there we will recheck a blood count. Will make a decision at that time whether to do the surgery and transfuse you blood. Or if need be cancel the surgery.[facility] Work Phone: Progress note Author Roxanna Thurman [facility] Note Date/Time November 21, 2024 12:13pm [facility] [address] [place] [address], [address] [place] [address] OFFICE VISIT Date of Service: 11/21/24 MR#: [id number] Acct: [id number] Name: GALINDO JOHNSTON Rep #: [id number] : 1980 Provider: Dr. Teri King, Age/Sex: 44/F Location: [facility] Status: Signed Intake Vital Signs 09/09/24 13:21 11/08/24 09:00 11/21/24 10:59 11/21/24 10:59 Height 5 ft 4 in 5 ft 4 in 5 ft 4 in 5 ft 4 in Weight: 137 lb 3 oz BMI 23.5 BP 126/78 H Intake Visit Reasons: 2 wk TRH BS Cysto Chief Complaint: 2wk TRH BS Boat Fueler Required: No Is patient in pain?: No Allergies codeine Allergy (Verified 11/21/24 10:54) PT UNSURE OF REACTION Medications ?Medication ?Instructions ?Recorded ?Confirmed ?Type cholecalciferol (vitamin D3) 100 100 mcg PO DAILY lori min 08/30/24 11/21/24 History mcg (4,000 unit) capsule escitalopram oxalate 20 mg tablet 20 mg PO DAILY [facility] 08/30/24 11/21/24 History ferrous gluconate 324 mg (38 mg 324 mg PO DAILY 30 day s #30 tabs 08/31/24 11/21/24 Rx iron) tablet ascorbate calcium (vitamin C) 500 500 mg PO QDAY 09/0911/21/24 History mg tablet levocetirizine 5 mg tablet 5 mg PO QDAY 09/09/2411/21 History Is last menstrual period known: No Post menopausal: No Patient : No : No Control Method: Hysterectomy PFSH Medical History delivery delivered Wears glasses Menorrhagia, premenopausal Iron deficiency anemia Anxiety Former smoker Surgical History History of hysterectomy (11/08/24) Previous section Tubal ligation status H/O wisdom tooth extraction Social History Smoking Status: Former smoker HPI 2 wk 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 Pathology was benign and she is feeling well. She states that she has not taken any pain meds for a week. She wants to go back to work this week. ROS ENT ENT: Reports system reviewed and no additional complaints, except as documented Cardio Card: Reports system reviewed and no additional complaints, except as documented Resp Resp: Denies cough, dyspnea or dyspnea on exertion GI GI: Denies abdominal pain, bloating or change in bowel habits : Denies vaginal odor or vaginal pruritus Musc Musc: Reports system reviewed and no additional complaints, except as documented Exam Const General: cooperative, healthy appearing and comfortable Resp Effort & Inspection: normal respiratory effort GI Palpation: soft and nontender Rectal Exam: other Extrem General: no edema Coding Level of Care Code No Charge Diagnoses Status post hysterectomy Z90.710 Assessment and Plan Assessment and Plan (1) Status post hysterectomy: Status: Acute Plan: pathology reviewed and benign. may return to sit down job only and start walking some. no sex x 6 more weeks. 11/21/24 1258 <Electronically signed by Roxanna Meek DO> Date _ Roxanna King DO Cosigner Signature: Date (if applicable) CC: ~ [facility] Work Phone: Reason for referral (narrative)No reason for referral information availableWP[facility] Work Phone: Chief Complaint and Reason [...] :02am Menorrhagia October 21, 2024 10 :02am Chief Complaint Admit Date SEVERE ANEMIA August 30, 2024 6:51p m SEVERE ANEMIA August 30, 2024 6:52p m SEVERE ANEMIA August 31, 2024 8:02a m SEVERE ANEMIA August 31, 2024 12:54 pm EMB and discuss Robotic Hysterectomy Aug 1:10pm Leiomyoma of uterus, unspecified October 11, 2024 9:49am PREOP October 11, 2024 10 :11am TRH BS Cysto October 21, 2024 10 :02am Weakness November 06, 2024 4:06pm Chief Complaint Admit Date SEVERE ANEMIA August 30, 2024 6:51p m SEVERE ANEMIA August 30, 2024 6:52p m SEVERE ANEMIA August 31, 2024 8:02a m SEVERE ANEMIA August 31, 2024 12:54 pm EMB and discuss Robotic Hysterectomy Aug 1:10pm Leiomyoma of uterus, unspecified October 11, 2024 9:49am PREOP October 11, 2024 10 :11am TRH BS Cysto October 21, 2024 10 :02am Weakness November 06, 2024 4:06pm 1 unit [facility] Chief Complaint Admit Date SEVERE ANEMIA August 30, 2024 6:51p m SEVERE ANEMIA August 30, 2024 6:52p m SEVERE ANEMIA August 31, 2024 8:02a m SEVERE ANEMIA August 31, 2024 12:54 pm EMB and discuss Robotic Hysterectomy Aug 1:10pm Leiomyoma of uterus, unspecified October 11, 2024 9:49am PREOP October 11, 2024 10 :11am TRH BS Cysto October 21, 2024 10 :02am Weakness November 06, 2024 4:06pm 1 unit PRBC's (2 units on hold) [facility] 2024 3:52pm ERAS, Lap Total Robotic Hysterectomy Yuri Salping, November 08, 2024 8:02am ERAS, Lap Total Robotic Hysterectomy Yuri Salping, November 08, 2024 9:24am Reason for Visit Admit Date Acute blood loss anemia August 30, 2024 6 :51pm Iron deficiency anemia August 30, 2024 6: 51pm Menorrhagia, premenopausal August 30 6:51pm Fibroid uterus September 09, 2024 1:10 pm Menorrhagia September 09, 2024 1:10 pm Fibroid uterus October 21, 2024 10 :02am Menorrhagia October 21, 2024 10 :02am Anemia November 08, 2024 8:02am Fibroid uterus November 08, 2024 8:02am Menorrhagia November 08, 2024 8:02am Chief Complaint Admit Date SEVERE ANEMIA August 30, 2024 6:51p m SEVERE ANEMIA August 30, 2024 6:52p m SEVERE ANEMIA August 31, 2024 8:02a m SEVERE ANEMIA August 31, 2024 12:54 pm EMB and discuss Robotic Hysterectomy Aug 1:10pm Leiomyoma of uterus, unspecified October 11, 2024 9:49am PREOP October 11, 2024 10 :11am TRH BS Cysto October 21, 2024 10 :02am Weakness November 06, 2024 4:06pm 1 unit PRBC's (2 units on hold) [facility] ERAS, Lap Total Robotic Hysterectomy Yuri Salping, November 08, 2024 8:02am ERAS, Lap Total Robotic Hysterectomy Yuri Salping, November 08, 2024 9:24am 2 wk TRH BS Cysto November 21, 2024 10:52am Reason for Visit Admit Date Acute blood loss anemia August 30, 2024 6 :51pm Iron deficiency anemia August 30, 2024 6: 51pm Menorrhagia, premenopausal August 30 6:51pm Fibroid uterus September 09, 2024 1:10 pm Menorrhagia September 09, 2024 1:10 pm Fibroid uterus October 21, 2024 10 :02am Menorrhagia October 21, 2024 10 :02am Fibroid uterus November 08, 2024 8:02am Menorrhagia November 08, 2024 8:02am Anemia November 08, 2024 8:02am Status post hysterectomy November 21, 2024 10:52am Advance Directives No Advanced Directives Records Found Advance Directive Response Recorded Date/ Time Do you have a Healthcare Power of Correctional Treatment Specialist? No August 30, 2024 2:49pm Advance Directive Response Recorded Date/ Time Do you have a Healthcare Power of Correctional Treatment Specialist? No August 30, 2024 8:12pm Advance Directive Response Recorded Date/ Time Do you have a Healthcare Power of Correctional Treatment Specialist? No August 30, 2024 8:12pm Do you have a Healthcare Power of Correctional Treatment Specialist? No November 06, 2024 4:46pm Advance Directive Response Recorded Date/ Time Do you have a Healthcare Power of Correctional Treatment Specialist? No August 30, 2024 8:12pm Do you have a Healthcare Power of Correctional Treatment Specialist? No October 25, 2024 9:05am Do you have a Healthcare Power of Correctional Treatment Specialist? No November 06, 2024 4:46pm Summary Purpose Family History No Family History [...] Inactive Member Role Status Dates Dr. Inocencio Frey MD Primary Care Provider Active Josette Elizabeth NP-C Attending Provider Active Team Status: Inactive Member Role Status Dates Dr. Inocencio Frye MD Primary Care Provider Active Josette Elizabeth NP-C Attending Provider, Referr ing Provider Active Team Status: Inactive Member Role Status Dates Dr. Inocencio Frye MD Primary Care Provider, Attend ing Provider Active Team Status: Inactive Member Role Status Dates Dr. Inocencio Frye MD Primary Care Provider Active Start: January 19, 2024 End: January 19, 2024 Angelica Olmos COMPUTER INFORMATION SCIENCE PROFESSOR, COMPUTER INFORMATION SCIENCE PROFESSOR-C Attending Provider Active S tart: January 19, 2024 End: January 19, 2024 Angelica Olmos COMPUTER INFORMATION SCIENCE PROFESSOR, COMPUTER INFORMATION SCIENCE PROFESSOR-C Referring Provider Active S tart: January 19, [...] Provider Active Start: August 30, 2024 Dr. Inocenico Frye MD Referring Provider Active Start: August 30, 2024 Team Status: Active Member Role/Relationship Status Dates Dr. Inocencio Frye MD Primary Care Provider Active Start: August 30, 2024 Dr. Joselito Maldonado , DO Emergency Provider Activ e Start: August 30, 2024 Dr. Johnny Zamora MD Admit Provider Active Sta rt: August 30, 2024 Dr. Johnny Zamora MD Attending Provider Active Start: August 30, 2024 Team Status: Inactive Member Role/Relationship Status Dates Dr. Inocencio Frye MD Primary Care Provider Active Start: August 30, 2024 End: August 31, 2024 Dr. Joselito Maldonado DO [...] August 31, 2024 Dr. Roxanna King , Other Provider Active Start: August 30, 2024 End: August 31, 2024 Team Status: Active Member Role/Relationship Status Dates Dr. Inocencio Frye MD Primary Care Provider Active Start: August 30, 2024 Dr. Joselito Maldonado DO Emergency Provider Activ e Start: August 30, 2024 Dr. Johnny Zamora MD Admit Provider Active Sta rt: August 30, 2024 Dr. Jonhny Zamora MD Attending Provider Active Start: August [...] 2024 End: October 21, 2024 Team Status: Inactive Member Role/Relationship Status Dates Dr. Inocencio Frye MD Primary Care Provider Active Start: November 06, 2024 End: November 06, 2024 Dr. Marvel Corley MD Emergency Provider Active S tart: November 06, 2024 End: November 06, 2024 Team Status: Inactive Member Role/Relationship Status Dates Dr. Inocencio Frye MD Primary Care Provider Active Start: November 07, 2024 End: November 07, 2024 Dr. Olive Mckinney MD Attending Provider Active Start: November 07, 2024 End: November 07, 2024 Dr. Olive Mckinney MD Referring Provider Active Start: November 07, 2024 End: November 07, 2024 Team Status: Inactive Member Role/Relationship Status Dates Dr. Inocencio Frye MD Primary Care Provider Active Start: November 08, 2024 End: November 08, 2024 Dr. Roxanna King DO Attending Provider Active Start: October End: November 08, 2024 Dr. Roxanna King DO Referring Provider Active Start: October End: November 08, 2024 Team Status: Active Member Role/Relationship Status Dates Dr. Inocencio Frye MD Primary Care Provider Active Start: November 08, 2024 Dr. Roxanna King DO Attending Provider Active Start: October Dr. Roxanna King DO Referring Provider Active Start: October Dr. Roxanna King DO Other Provider Active Start: October Team Status: Active Member Role/Relationship Status Dates Dr. Inocencio Frye MD Primary care physician Active Team Status: Inactive Member Role/Relationship Status Dates Dr. Inocencio Frye MD Primary care physician Active Start: August 30, 2024 End: August 30, 2024 Dr. Inocencio Frye MD Attending physician Active Start: August 30, 2024 End: August 30, 2024 Dr. Inocencio Frye MD Referring Provider Active Start: August 30, 2024 End: August 30, 2024 Team Status: Inactive Member Role/Relationship Status Dates Dr. Inocencio Frye MD Primary care physician Active Start: August 30, 2024 End: August 31, 2024 Dr. Joselito Maldonado DO Emergency Department Physician Active Start: 2024 End: August 31, 2024 Dr. Johnny Zamora MD Admitting physician Active Start: August 30, 2024 End: August 31, 2024 Dr. Johnny Zamora MD Nurse Practitioner Active Start: August 30, 2024 End: August 31, 2024 Dr. Lori Conrad MD Attending physician Active Start: August 30, 2024 End: August 31, 2024 Dr. Roxanna King DO Nurse Practitioner Active Start: August 30 End: August 31, 2024 Team Status: Active Member Role/Relationship Status Dates Dr. Inocencio Frye MD Primary care physician Active Start: August 30, 2024 Dr. Joselito Maldonado DO Emergency Department Physician Active Start: 2024 Dr. Johnny Zamora MD Admitting physician Active Start: August 30, 2024 Dr. Johnny Zamora MD Attending physician Active Start: August 30, 2024 Dr. Johnny Zamora MD Nurse Practitioner Active Start: August 30, 2024 Team Status: Active Member Role/Relationship Status Dates Dr. Inocencio Frye MD Primary care physician Active Start: August 31, 2024 Dr. Joselito Maldonado DO Emergency Department Physician Active Start: 2024 Dr. Johnny Zamora MD Admitting physician Active Start: August 31, 2024 Dr. Johnny Zamora MD Nurse Practitioner Active Start: August 31, 2024 Dr. Lori Conrad MD Nurse Practitioner Active Start: August 31, 2024 Dr. Roxanna King DO Attending physician Active Start: August 31 Dr. Roxanna King DO Nurse Practitioner Active Start: August 31 Team Status: Active Member Role/Relationship Status Dates Dr. Inocencio Frye MD Primary care physician Active Start: August 31, 2024 Dr. Joselito Maldonado DO Emergency Department Physician Active Start: 2024 Dr. Johnny Zamora MD Admitting physician Active Start: August 31, 2024 Dr. Johnny Zamora MD Nurse Practitioner Active Start: August 31, 2024 Dr. Lori Conrad MD Attending physician Active Start: August 31, 2024 Dr. Lori Conrad MD Nurse Practitioner Active Start: August 31, 2024 Dr. Roxanna King DO Nurse Practitioner Active Start: August 31 Team Status: Inactive Member Role/Relationship Status Dates Dr. Inocencio Frye MD Primary care physician Active Start: September 06, 2024 End: September 06, 2024 Dr. Inocencio Frye MD Attending physician Active Start: September 06, 2024 End: September 06, 2024 Dr. Inocencio Frye MD Referring Provider Active Start: September 06, 2024 End: September 06, 2024 Team Status: Inactive Member Role/Relationship Status Dates Dr. Inocencio Frye MD Primary care physician Active Start: September 09, 2024 End: September 09, 2024 Dr. Inocencio Frye MD Referring Provider Active Start: September 09, 2024 End: September 09, 2024 Dr. Roxanna King DO Attending physician Acti ve Start: September 09, 2024 End: September 09, 2024 Team Status: Inactive Member Role/Relationship Status Dates Dr. Inocencio Frye MD Primary care physician Active Start: September 09, 2024 End: September 09, 2024 Dr. Roxanna King DO Attending physician Acti ve Start: September 09, 2024 End: September 09, 2024 Team Status: Inactive Member Role/Relationship Status Dates Dr. Inocencio Frye MD Primary care physician Active Start: October 11, 2024 End: October 11, 2024 Dr. Roxanna King DO Attending physician Acti ve Start: October 11, 2024 End: October 11, 2024 Dr. Roxanna King DO Referring Provider Activ e Start: October 11, 2024 End: October 11, 2024 Team Status: Active Member Role/Relationship Status Dates Dr. Inocencio Frye MD Primary care physician Active Start: October 11, 2024 Dr. Jacob Donaldson MD Attending physician Active Start: October 11, 2024 Dr. Roxanna King DO Referring Provider Activ e Start: October 11, 2024 Team Status: Inactive Member Role/Relationship Status Dates Dr. Inocencio Frye MD Primary care physician Active Start: October 21, 2024 End: October 21, 2024 Dr. Inocencio Frye MD Referring Provider Active Start: October 21, 2024 End: October 21, 2024 Dr. Roxanna King DO Attending physician Acti ve Start: October 21, 2024 End: October 21, 2024 Team Status: Inactive Member Role/Relationship Status Dates Dr. Inocencio Frye MD Primary care physician Active Start: October 21, 2024 End: October 21, 2024 Dr. Roxanna King DO Attending physician Acti ve Start: October 21, 2024 End: October 21, 2024 Dr. Roxanna King DO Referring Provider Activ e Start: October 21, 2024 End: October 21, 2024 Team Status: Inactive Member Role/Relationship Status Dates Dr. Inocencio Frye MD Primary care physician Active Start: November 06, 2024 End: November 06, 2024 Dr. Marvel Corley MD Attending physician Active Start: November 06, 2024 End: November 06, 2024 Dr. Marvel [facility] Active Start: November 06, 2024 End: November 06, 2024 Team Status: Inactive Member Role/Relationship Status Dates Dr. Inocencio Frye MD Primary care physician Active Start: November 07, 2024 End: November 07, 2024 Dr. Olive Mckinney MD Attending physician Active Start: November 07, 2024 End: November 07, 2024 Dr. Olive Mckinney MD Referring Provider Active Start: November 07, 2024 End: November 07, 2024 Team Status: Inactive Member Role/Relationship Status Dates Dr. Inocencio Frye MD Primary care physician Active Start: November 08, 2024 End: November 08, 2024 Dr. Roxanna King DO Attending physician Active Start: October End: November 08, 2024 Dr. Roxanna King DO Referring Provider Active Start: October End: November 08, 2024 Team Status: Active Member Role/Relationship Status Dates Dr. Inocencio Frye MD Primary care physician Active Start: November 08, 2024 Dr. Roxanna Kign DO Attending physician Active Start: October Dr. Roxanna King DO Referring Provider Active Start: October Dr. Roxanna King DO Nurse Practitioner Active Start: October Team Status: Inactive Member Role/Relationship Status Dates Dr. Inocencio Frye MD Primary care physician Active Start: November 16, 2024 End: November 16, 2024 Dr. Inocencio Frye MD Attending physician Active Start: November 16, 2024 End: November 16, 2024 Team Status: Inactive Member Role/Relationship Status Dates Dr. Inocencio Frye MD Primary care physician Active Start: November 21, 2024 End: November 21, 2024 Dr. Inocencio Frye MD Referring Provider Active Start: November 21, 2024 End: November 21, 2024 Dr. Roxanna King DO Attending physician Active Start: October End: November 21, 2024 INFORMATION SOURCE (unrecogn ized section and content) DATE CREATED AUTHOR 12/31/2024 [facility] FOR RECORDS PERTAINING TO PATIENTS WHO ARE [...] BE BASED ON THE PRIMARY CLINICAL RECORDS. [email or web address] provides no warranty or guarantee of the accuracy or completeness of information in this document.
== END | disposition home or self-care (01) ==
LOC: OPBI 08:10
PROVIDERS: PCP Family Medicine; Referring Provider Obstetrics & Gynecology; Visit Provider Obstetrics & Gynecology
DX: Z12.31 Encounter for screening mammogram for malignant neoplasm of breast (principal)
CPT/HCPCS: 77063; 77067

== ENCOUNTER → 2025-02-10 | Outpatient (CLI) | payer BC, SELFPAY ==
--- OUTSIDE RECORDS SUMMARY | 2025-02-10 09:20 | XMS RPT_ITS | CCD ---
Author Organization [facility] Care Team Providers Care Highway Maintenance Technician Name Role Phone Melva KLEIN, Dr. Inocencio Lopez Primary Care Provider [phone] Amarilis CHEMICAL PROCESS ANALYST-C, Angelica Attending Provider Amarilis CHEMICAL PROCESS ANALYST-C, Angelica Referring Provider Melva KLEIN, Dr. Inocencio Lopez Attending Provider Dr. Inocencio Frye MD Referring Provider [phone] Dr. Inocencio Frye MD Primary Care Provider [phone] Melva KLEIN, Dr. Inocencio Lopez Attending Provider Dr. Inocencio Frye MD Referring Provider Dr. Joselito Maldonado DO Emergency Provider Noah KLEIN, Dr. Turner Admit Provider Noah KLEIN, Dr. Turner Attending Provider Noah KLEIN, Dr. Turner Other Provider Anamaria KLEIN, Dr. Lori Beard Attending Provider Dr. Roxanna King DO Other Provider [phone] Noah KLEIN, Dr. Turner Attending Provider Anamaria KLEIN, Dr. Lori Beard Other Provider Dr. Roxanna King DO Attending Provider Dr. Roxanna King DO Referring Provider Anika KLEIN, Dr. James Attending Provider [phone] Barney KLEIN, Dr. Grier Emergency Provider Zoran KLEIN, Dr. Schaefer Attending Provider [phone] Zoran KLEIN, Dr. Schaefer Referring Provider [phone] Melva KLEIN, Dr. Inocencio Lopez Primary Care Physician Melva KLEIN, Dr. Inocencio Lopez Attending Physician Erica CHEEK, Dr[facility] Noah KLEIN, Dr. Turner Admitting Physician Noah KLEIN, Dr. Turner Nurse Practitioner Anamaria KLEIN, Dr. Lori Beard Attending Physician [phone] Jasmin Thurman DO, Dr. Mcknight Nurse Practitioner Noah KLEIN, Dr. Turner Attending Physician Anamaria KLEIN, Dr. Lori Beard Nurse Practitioner Jasmin Thurman DO, Dr. Mcknight Attending Physician Anika KLEIN, Dr. James Attending Physician Barney KLEIN, Dr. Grier Attending Physician Barney KLEIN, Dr. Grier Emergency Department Physici an Zoran KLEIN, Dr. Schaefer Attending Physician Amarilis CHEMICAL PROCESS ANALYST, Angelica Attending Unavailable Amarilis CHEMICAL PROCESS ANALYST, Nagelica Referring Unavailable Inocencio Frye Primary Care Unavailable [...] Schinner, Inocencio E Primary Care Unavailable Lori Conrad Attending Unavailable Johnny Zamora Consulting Unavailable Johnny Zamora Admitting Unavailable Schinner, Inocencio E Primary Care Unavailable Roxanna King Consulting Unavailabl e Vande Roxanna Thurman Attending Unavailabl e [place] Roxanna Thurman Referring Unavailabl e Schhumphrey, Inocencio [...] Drug Allergy 5 PT UNSURE OF REACTION [facility] (1 source) Codeine Drug Allergy 5 [facility] Repository Medications Current Medications Medication Drug [...] blood count assessment. Unclassified (13 sources) [employer] Chair office will contact you with a visit. [...] Absolute Lymph 0.91 X10 3/uL Normal 0.83-4.51 [facility] Comment on above: Performed By: #### L 100.0100, L503.6061, L503.6598 #### [facility] [address] [place], [address] Absolute Neut 2.4 X10 3/uL Normal 2.0-7.7 [facility] Comment on above: Performed By: #### L 100.0100, L503.6030, L503.6550 #### [facility] [address] [place], [address] Basophils/100 WBC (Bld) 0.8 % Normal 0-1 [facility] Comment on above: Performed By: #### L 100.0100, L503.6030, L503.6550 #### [facility] [address] [place], [address] Eosinophils/100 WBC (Bld) 3.1 % Normal 0-5 [facility] Comment on above: Performed By: #### L 100.0100, L503.6030, L503.6550 #### [facility] [address] [place], [address] Erythrocyte distribution width (RBC) [Ratio] 13.7 % Normal 11.6-14.6 [facility] Comment on above: Performed By: #### L 100.0100, L503.6030, L503.6550 #### [facility] [address] [place], [address] Hematocrit (Bld) [Volume fraction] 37.3 % Normal 37-47 [facility] Comment on above: Performed By: #### L 100.0100, L503.6030, L503.6550 #### [facility] [address] [place], [address] Hemoglobin (Bld) [Mass/Vol] 11.9 g/dL Low 12.0-15.0 [facility] Comment on above: Performed By: #### L 100.0100, L503.6030, L503.6550 #### [facility] [address] [place], [address] IG% 0.300 Normal 0.0-0.9 [facility] Comment on above: Result Comment: IG% - Immature Granulocytes (promyelocytes, myelocytes and metamyelocytes) > 1% indicates that a LEFT SHIFT is Present. Performed By: #### L 100.0100, L503.6030, L503.6550 #### [facility] [address] [place], [address] Lymphocytes/100 WBC (Bld) 23.3 % Normal 19-41 [facility] Comment on above: Performed By: #### L 100.0100, L503.6030, L503.6550 #### [facility] [address] [place], [address] MCH (RBC) [Entitic mass] 27.6 pg Normal 27.0-32.0 [facility] Comment on above: Performed By: #### L 100.0100, L503.6030, L503.6550 #### [facility] [address] [place], [address] MCHC (RBC) [Mass/Vol] 31.9 g/dL Low 32-36 [facility] Comment on above: Performed By: #### L 100.0100, L503.6030, L503.6550 #### [facility] [address] [place], [address] MCV (RBC) [Entitic vol] 86.5 fL Normal 81-99 [facility] Comment on above: Performed By: #### L 100.0100, L503.6030, L503.6550 #### [facility] [address] [place], [address] Monocytes/100 WBC (Bld) 10.3 % High 0-10 [facility] Comment on above: Performed By: #### L 100.0100, L503.6030, L503.6550 #### [facility] [address] [place], [address] Neutrophils/100 WBC (Bld) 62.2 % Normal 47-70 [facility] Comment on above: Performed By: #### L 100.0100, L503.6030, L503.6550 #### [facility] [address] [place], [address] Nucleated RBC (Bld) [#/Vol] 0 10*3/uL Normal 0-5 [facility] Comment on above: Performed By: #### L 100.0100, L503.6030, L503.6550 #### [facility] [address] [place], [address] Platelet mean volume (Bld) [Entitic vol] 11.6 fL Normal 6.2-12.0 [facility] Comment on above: Performed By: #### L 100.0100, L503.6030, L503.6550 #### [facility] [address] [place], [address] Platelets (Bld) [#/Vol] 220 10*3/uL Normal 150-450 [facility] Comment on above: Performed By: #### L 100.0100, L503.6030, L503.6550 #### [facility] [address] [place], [address] RBC (Bld) [#/Vol] 4.31 10*6/uL Normal 4.2-5.4 [facility] Comment on above: Performed By: #### L 100.0100, L503.6030, L503.6550 #### [facility] [address] [place], [address] RDW SD 43.8 fl Normal 35.1-43.9 [facility] Comment on above: Performed By: #### L 100.0100, L503.6030, L503.6550 #### [facility] [address] [place], [address] WBC (Bld) [#/Vol] 3.9 10*3/uL Low 4.4-11.0 [facility] Comment on above: Performed By: #### L 100.0100, L503.6030, L503.6550 #### [facility] [address] [place], [address] Ferritinon 12-19-2024 Ferritin [Mass/Vol] 42 ng/mL Normal 22-378 [facility] Comment on above: Performed By: #### L 100.0100, L503.6030, L503.6550 #### [facility] [address] [place], [address] Iron+Iron Binding Capacityon 12-19-2024 Iron [Mass/Vol] 62 ug/dL Normal 50-170 [facility] Comment on above: Performed By: #### L 100.0100, L503.6030, L503.6550 #### [facility] [address] [place], [address] IRON SATURATION 18.3 Normal 13-59 [facility] Comment on above: Performed By: #### L 100.0100, L503.6030, L503.6550 #### [facility] [address] [place], [address] TIBC 338 ug/dL Normal 250-450 [facility] Comment on above: Performed By: #### L 100.0100, L503.6030, L503.6550 #### [facility] [address] [place], [address] UIBC 276 ug/dL Normal 228-428 [facility] Comment on above: Performed By: #### L 100.0100, L503.6030, L503.6550 #### [facility] [address] [place], [address] Railroad Yard Worker Office Visit Reporton 12-19-2024 Railroad Yard Worker Office Visit Report [facility] [address] [place] [address], [address] [place] [address] OFFICE VISIT Date of Service: 12/19/24 MR#: [id number] Acct: [id number] Name: GALINDO JOHNSTON Rep #: [id number] : 1980 Provider: Dr. 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 Roxanna Ramos DO Age/Sex: 44/F Location: [facility] Status: Signed Intake Vital Signs 09/09/24 13:21 11/08/24 09:00 11/21/24 10:59 11/21/24 10:59 Height 5 ft 4 in 5 ft 4 in 5 ft 4 in 5 ft 4 in Weight: 137 lb 3 oz BMI 23.5 BP 126/78 H Intake Visit Reasons: 2 wk TRH BS Cysto Chief Complaint: 2wk TRH BS Banking Paralegal Required: No Is patient in pain?: No [...] Newell Signature: Date (if applicable) CC: Normal [facility] Absolute lymphocyte countOrd ered By: Inocencio Frye on 11-16-2024 Lymphocytes Auto (Unsp spec) [#/Vol] 0.95 10*3/uL 0.83-4.51 [facility] Absolute neutrophil countOrd ered By: Inocencio Frye on 11-16-2024 Neutrophils (Bld) [#/Vol] 2.4 10*3/uL 2.0-7.7 [facility] Automated lymphocyte count a s percentage of total leukocytesOrdered By: Inocencio Frye on 11-16-2024 Lymphocytes/100 WBC Auto (Unsp spec) 24.1 % 19-41 [facility] Basophil percentageOrdered B y: Inocencio Frye on 11-16-2024 Basophils/100 WBC (Bld) 1.5 % High 0-1 [facility] CBC W/Diff, Automatedon 10-25 Absolute Lymph 0.95 X10 3/uL Normal 0.83-4.51 [facility] Comment on above: Performed By: #### L 100.0100, L503.6002, L503.6550 #### [facility] [address] [place], [address] Absolute Neut 2.4 X10 3/uL Normal 2.0-7.7 [facility] Comment on above: Performed By: #### L 100.0100, L503.6030, L503.6550 #### [facility] [address] [place], [address] Basophils/100 WBC (Bld) 1.5 % High 0-1 [facility] Comment on above: Performed By: #### L 100.0100, L503.6030, L503.6550 #### [facility] [address] [place], [address] Eosinophils/100 WBC (Bld) 2.8 % Normal 0-5 [facility] Comment on above: Performed By: #### L 100.0100, L503.6030, L503.6550 #### [facility] [address] [place], [address] Erythrocyte distribution width (RBC) [Ratio] 15.2 % High 11.6-14.6 [facility] Comment on above: Performed By: #### L 100.0100, L503.6030, L503.6550 #### [facility] [address] [place], [address] Hematocrit (Bld) [Volume fraction] 35.6 % Low 37-47 [facility] Comment on above: Performed By: #### L 100.0100, L503.6030, L503.6550 #### [facility] [address] [place], [address] Hemoglobin (Bld) [Mass/Vol] 10.9 g/dL Low 12.0-15.0 [facility] Comment on above: Performed By: #### L 100.0100, L503.6030, L503.6550 #### [facility] [address] [place], [address] IG% 0.300 Normal 0.0-0.9 [facility] Comment on above: Result Comment: IG% - Immature Granulocytes (promyelocytes, myelocytes and metamyelocytes) > 1% indicates that a LEFT SHIFT is Present. Performed By: #### L 100.0100, L503.6030, L503.6550 #### [facility] [address] [place], [address] Lymphocytes/100 WBC (Bld) 24.1 % Normal 19-41 [facility] Comment on above: Performed By: #### L 100.0100, L503.6030, L503.6550 #### [facility] [address] [place], [address] MCH (RBC) [Entitic mass] 27.5 pg Normal 27.0-32.0 [facility] Comment on above: Performed By: #### L 100.0100, L503.6030, L503.6550 #### [facility] [address] [place], [address] MCHC (RBC) [Mass/Vol] 30.6 g/dL Low 32-36 [facility] Comment on above: Performed By: #### L 100.0100, L503.6030, L503.6550 #### [facility] [address] [place], [address] MCV (RBC) [Entitic vol] 89.9 fL Normal 81-99 [facility] Comment on above: Performed By: #### L 100.0100, L503.6030, L503.6550 #### [facility] [address] [place], [address] Monocytes/100 WBC (Bld) 10.4 % High 0-10 [facility] Comment on above: Performed By: #### L 100.0100, L503.6030, L503.6550 #### [facility] [address] [place], [address] Neutrophils/100 WBC (Bld) 60.9 % Normal 47-70 [facility] Comment on above: Performed By: #### L 100.0100, L503.6030, L503.6550 #### [facility] [address] [place], [address] Nucleated RBC (Bld) [#/Vol] 0 10*3/uL Normal 0-5 [facility] Comment on above: Performed By: #### L 100.0100, L503.6030, L503.6550 #### [facility] [address] [place], [address] Platelet mean volume (Bld) [Entitic vol] 12.2 fL High 6.2-12.0 [facility] Comment on above: Performed By: #### L 100.0100, L503.6030, L503.6550 #### [facility] [address] [place], [address] Platelets (Bld) [#/Vol] 236 10*3/uL Normal 150-450 [facility] Comment on above: Performed By: #### L 100.0100, L503.6030, L503.6550 #### [facility] [address] [place], [address] RBC (Bld) [#/Vol] 3.96 10*6/uL Low 4.2-5.4 [facility] Comment on above: Performed By: #### L 100.0100, L503.6030, L503.6550 #### [facility] [address] [place], [address] RDW SD 48.3 fl High 35.1-43.9 [facility] Comment on above: Performed By: #### L 100.0100, L503.6030, L503.6550 #### [facility] [address] [place], [address] WBC (Bld) [#/Vol] 3.9 10*3/uL Low 4.4-11.0 [facility] Comment on above: Performed By: #### L 100.0100, L503.6030, L503.6550 #### [facility] [address] [place], [address] Eosinophil percentageOrdered By: Inocencio Frye on 11-16-2024 Eosinophils/100 WBC (Bld) 2.8 % 0-5 [facility] Erythrocyte distribution wid th ratioOrdered By: Inocencio Frye on 11-16-2024 Erythrocyte distribution width (RBC) [Ratio] 15.2 % High 11.6-14.6 [facility] Erythrocyte distribution wid th standard deviationOrdered By: Inocencio Frye on 11-16-2024 Erythrocyte distribution width (RBC) [Ratio] 48.3 fl High 35.1-43.9 [facility] Ferritinon 11-16-2024 Ferritin [Mass/Vol] 43 ng/mL Normal 22-378 [facility] Comment on above: Performed By: #### L 100.0100, L503.6030, L503.6550 #### [facility] [address] [place], [address] Hematocrit Auto (Bld) [Volum e fraction]Ordered By: Inocencio Frye on 11-16-2024 Hematocrit (Bld) [Volume fraction] 35.6 % Low 37-47 [facility] Hemoglobin measurementOrdere d By: Inocencio Frye on 11-16-2024 Hemoglobin (Bld) [Mass/Vol] 10.9 g/dL Low 12.0-15.0 [facility] Immature granulocytes/100 WB C Auto (Bld)Ordered By: Inocencio Frye on 11-16-2024 Immature granulocytes/100 WBC (Bld) 0.300 % 0.0-0.9 [facility] Comment on above: IG% - Immature Granu locytes (promyelocytes, myelocytes and metamyelocytes) > 1% indicates that a LEFT SHIFT is Present. Iron measurement (mass/mass) Ordered By: Inocencio Frye on 11-16-2024 Iron (Unsp spec) [Mass/Mass] 211 ug/dL High 50-170 [facility] Iron+Iron Binding Capacityon 11-16-2024 Iron [Mass/Vol] 211 ug/dL High 50-170 [facility] Comment on above: Performed By: #### L 100.0100, L503.6030, L503.6550 #### [facility] [address] [place], [address] IRON SATURATION 54.9 Normal 13-59 [facility] Comment on above: Performed By: #### L 100.0100, L503.6030, L503.6550 #### [facility] [address] [place], [address] TIBC 384 ug/dL Normal 250-450 [facility] Comment on above: Performed By: #### L 100.0100, L503.6030, L503.6550 #### [facility] [address] [place], [address] UIBC 173 ug/dL Low 228-428 [facility] Comment on above: Performed By: #### L 100.0100, L503.6030, L503.6550 #### [facility] [address] [place], [address] MCV (mean corpuscular volume ) determinationOrdered By: Inocencio Frye on 11-16-2024 MCV (RBC) [Entitic vol] 89.9 fL 81-99 [facility] Mean corpuscular hemoglobin (MCH) determinationOrdered By: Inocencio Frye on 11-16-2024 MCH (RBC) [Entitic mass] 27.5 pg 27.0-32.0 [facility] Mean corpuscular hemoglobin concentration (MCHC) determinationOrdered By: Inocencio Frye on 11-16-2024 MCHC (RBC) [Mass/Vol] 30.6 g/dL Low 32-36 [facility] Mean platelet volume determi nationOrdered By: Inocencio Fyre on 11-16-2024 Platelet mean volume (Bld) [Entitic vol] 12.2 fL High 6.2-12.0 [facility] Monocyte percentageOrdered B y: Inocencio Frye on 11-16-2024 Monocytes/100 WBC (Bld) 10.4 % High 0-10 [facility] Neutrophil percentageOrdered By: Inocencio Frye on 11-16-2024 Neutrophils/100 WBC (Bld) 60.9 % 47-70 [facility] No Panel InformationOrdered By: Inocencio Frye on 11-16-2024 Unsaturated Iron Binding Capacity 173 ug/dL Low 228-428 [facility] Nucleated red blood cell per centageOrdered By: Inocencio Frye on 11-16-2024 Nucleated RBC/100 WBC (Bld) [Ratio] 0 % 0-5 [facility] Platelet countOrdered By: Chacha Frye on 11-16-2024 Platelets (Bld) [#/Vol] 236 10*3/uL 150-450 [facility] RBC Auto (Bld) [#/Vol]Ordere d By: Inocecnio Frye on 11-16-2024 RBC (Bld) [#/Vol] 3.96 10*6/uL Low 4.2-5.4 [facility] Serum or plasma ferritin marti surement (mass/volume)Ordered By: Inocencio Frye on 11-16-2024 Ferritin [Mass/Vol] 43 ng/mL 22-378 [facility] Serum or plasma iron saturat ion measurement (mass fraction)Ordered By: Inocencio Frye on 11-16-2024 Iron saturation [Mass fraction] 54.9 % 13-59 [facility] White blood cell (WBC) count Ordered By: Inocencio Frye on 11-16-2024 WBC (Bld) [#/Vol] 3.9 10*3/uL Low 4.4-11.0 [facility] Bedside Glucoseon 11-08-2024 FINGERSTICK GLU 93 mg/dL Normal 74-106 [facility] Comment on above: Result Comment: GEOVANNA URIBE OF PATIENT CARE PER NURSING PROTOCOL Performed By: #### L 501.080 #### [facility] [address] [place], [address] CBC-Complete Blood Cnt No Di ffon 11-08-2024 PLT TNP Normal 150-450 [facility] Comment on above: Performed By: #### L 100.0500 #### [facility] [address] [place], [address] Erythrocyte distribution width (RBC) [Ratio] 19.0 % High 11.6-14.6 [facility] Comment on above: Performed By: #### L 100.0500 #### [facility] [address] [place], [address] Hematocrit (Bld) [Volume fraction] 33.5 % Low 37-47 [facility] Comment on above: Performed By: #### L 100.0500 #### [facility] [address] [place], [address] Hemoglobin (Bld) [Mass/Vol] 10.4 g/dL Low 12.0-15.0 [facility] Comment on above: Performed By: #### L 100.0500 #### [facility] [address] [place], [address] MCH (RBC) [Entitic mass] 27.3 pg Normal 27.0-32.0 [facility] Comment on above: Performed By: #### L 100.0500 #### [facility] [address] [place], [address] MCHC (RBC) [Mass/Vol] 31.0 g/dL Low 32-36 [facility] Comment on above: Performed By: #### L 100.0500 #### [facility] [address] [place], [address] MCV (RBC) [Entitic vol] 87.9 fL Normal 81-99 [facility] Comment on above: Performed By: #### L 100.0500 #### [facility] [address] [place], [address] Platelet mean volume (Bld) [Entitic vol] 12.3 fL High 6.2-12.0 [facility] Comment on above: Performed By: #### L 100.0500 #### [facility] [address] [place], [address] RBC (Bld) [#/Vol] 3.81 10*6/uL Low 4.2-5.4 [facility] Comment on above: Performed By: #### L 100.0500 #### [facility] [address] [place], [address] RDW SD 60.3 fl High 35.1-43.9 [facility] Comment on above: Performed By: #### L 100.0500 #### [facility] [address] [place], [address] WBC (Bld) [#/Vol] 4.3 10*3/uL Low 4.4-11.0 [facility] Comment on above: Performed By: #### L 100.0500 #### [facility] [address] [place], [address] Discharge Instructionon 10-24 Discharge Instruction [facility] [address] [place] [address] Instructions for Home/Discharge Instructions 11/08/24 0940 MR#: [id number] Acct: [id number] Name: GALINDO JOHNSTON Rep #: [id number] : 1980 44 From: Roxanna King DO [...] Care Provider: Inocencio Frye Instructions Print Language: [place] Discharge Orders/Prescriptions Prescriptions: New ibuprofen 800 mg [...] CC: Dr. Inocencio Frye MD Signed Normal [facility] Erythrocyte distribution wid th ratioOrdered By: Roxanna Thurman on 11-08-2024 Erythrocyte distribution width (RBC) [Ratio] 19.0 % High 11.6-14.6 [facility] Erythrocyte distribution wid th standard deviationOrdered By: Roxanna Thurman on 11-08-2024 Erythrocyte distribution width (RBC) [Ratio] 60.3 fl High 35.1-43.9 [facility] Glucose measurement at bedsi deOrdered By: Roxanna Thurman on 11-08-2024 Glucose [Mass/Vol] 93 mg/dL 74-106 [facility] Comment on above: MANAGEMENT OF PATIEN T CARE PER NURSING PROTOCOL Hematocrit Auto (Bld) [Volum e fraction]Ordered By: Roxanna Thurman on 11-08-2024 Hematocrit (Bld) [Volume fraction] 33.5 % Low 37-47 [facility] Hemoglobin measurementOrdere d By: Roxanna Thurman on 11-08-2024 Hemoglobin (Bld) [Mass/Vol] 10.4 g/dL Low 12.0-15.0 [facility] MCV (mean corpuscular volume ) determinationOrdered By: Roxanna Thurman on 11-08-2024 MCV (RBC) [Entitic vol] 87.9 fL Invalid Interpretation Code 81-99 [facility] Comment on above: Delta: 92.6 on 11/07-1443 MR/POSTOP.ANEon 11-08-2024 MR/POSTOP.ANE [facility] Medical Records Department [address] [place] [address] Anesthesia Postop Eval I 11/08/24 1226 MR#: [id number] Acct: [id number] Name: GALINDO JOHNSTON Rep #: [id number] : 1980 44 From: Steven Escobar CRNA PCP: Dr. Inocencio Frye MD Status:REG [facility] Y Race: C Location: [place] [address] Anesthesia: Postop Eval I Current Vital Signs Temperature: 97.7 F Pulse Rate: 90 Blood Pressure: 112/80 Respiratory Rate: 14 Pulse Ox: 97 Assessment Airway patent: Yes Spontaneous unlabored respirations: Yes nausea: No Vomiting: No Anesthesia Complication: No Fluid Hydration Crystalloid volume administer (ml): 1,400 Total IV fluid infused: 1,400 Progress Note Anesthesia document: Postop Eval 1 completed: Yes 11/08/24 1227 Date Steven Escobar PRE CODER Cosigner Signature: Date CC: Signed Normal [facility] MR/[id number] 11-08-2024 MR/POSTOPAN2 [facility] Medical Records Department [address] [place] [address] Anesthesia Postop Eval II 11/08/24 1513 MR#: [id number] Acct: [id number] Name: GALINDO JOHNSTON Rep #: [id number] : 1980 44 From: Veronica Morales PRE CODER PCP: Dr. Inocencio Frye MD Status:REG [facility] Y Race: C Location: [place] [address] Anesthesia Postop Eval I Sum Postop Eval Completion status Anesthesia document: Postop Eval 1 completed: Yes Anesthesia Postop Eval I Summary Anesthesia Postop Eval I Summary: Anesthesia Postop Eval I: Assessment Summary Airway patent Yes 11/08/24 12:26 PRE [email or web address] Spontaneous unlabored Yes 11/08/24 12:26 PRE [email or web address] respirations Mental status nausea No 11/08/24 12:26 PRE [email or web address].RWOO Vomiting No 11/08/24 12:26 PRE [email or web address] Anesthesia Postop Eval I: Fluid Summary Crystalloid volume administer 1,400 11/08/24 12:26 PRE [email or web address].RWOO (ml) Colloids volume administered ( ml) Blood Product volume administered (ml) Total IV fluid infused 1,400 11/08/24 12:26 PRE [email or web address] Anesthesia Postop Eval I: Summary Notes Anesthesia Complication No 11/08/24 12:26 PRE [email or web address] Anesthesia Complication Comment: Post-operative progress note Anesthesia: Postop Eval II Evaluation Mental status: Awake and Calm Pain Level: 2 nausea: No Vomiting: No Complications Anesthesia Complication: No 11/08/24 1514 Date Veronica Morales PRE CODER Cosigner Signature: Date CC: Signed Normal [facility] Mean corpuscular hemoglobin (MCH) determinationOrdered By: Roxanna Thurman on 11-08-2024 MCH (RBC) [Entitic mass] 27.3 pg 27.0-32.0 [facility] Mean corpuscular hemoglobin concentration (MCHC) determinationOrdered By: Roxanna Thurman on 11-08-2024 MCHC (RBC) [Mass/Vol] 31.0 g/dL Low 32-36 [facility] Mean platelet volume determi nationOrdered By: Roxanna Thurman on 11-08-2024 Platelet mean volume (Bld) [Entitic vol] 12.3 fL High 6.2-12.0 [facility] Operative Reporton 5 Operative Report [facility] Medical Records Department [address] [place] [address] Operative Report 11/08/24 1209 MR#: [id number] Acct: [id number] Name: GALINDO JOHNSTON Rep #: [id number] : 1980 44 From: Roxanna King DO PCP: Dr. Inocencio Frye MD Status:[facility] Location: [place] [address] Problems Associated Problem List Diagnoses (1) Anemia: (2) Fibroid uterus: (3) Menorrhagia: Multi Select Codes Urinary/Genital Urinary/Genital CPT Codes: 78318 Cystoscopy and 74058 TLH+BS/O >250gr uterus Operative Report (Standard) Operative Information Date of Procedure: 11/08/24 Pre-Operative Diagnosis: menorrhagia, acute blood loss anemia, fibroid uterus Post-Operative Diagnosis: menorrhagia, acute blood loss anemia, fibroid uterus Surgery/Procedure Performed: total robotic hysterectomy, bilateral salpingectomy, cystoscopy creative consultant: Yes Director Supply Chain: Anna Aldrich Tasks completed by commercial lending assistant: Closing, Trocar and Other (suction irrigation ) Additional sales assistant institutional sales?: No Type of Anesthesia: General RN Documented [...] the anterior lip of the cervix. An [employer]cn[employer]uedd uterine manipulator was inserted through the cervix [...] Next a left upper quadrant 8 mm sales assistant institutional sales port site was placed. The patient was [...] lock sutu (more content not included)... Normal [facility] Platelet countOrdered By: Luac Thurman on 11-08-2024 Platelet count [facility] Comment on above: Test not performed RBC Auto (Bld) [#/Vol]Ordere d By: Roxanna Thurman on 11-08-2024 RBC (Bld) [#/Vol] 3.81 10*6/uL Low 4.2-5.4 [facility] Surgery Specimen Level Von 0 11-08-2024 Surgery Specimen Level V Patient Age/Sex Location Account Attending Physician PRESTONGALINDO MUÑOZ 44/F [facility] [id number] Dr. Roxanna King, [place] Specimen: [id number] Received: 11/08/24 Status: SENTHIL Vidal Num: [id number] Spec Type: UTERUS Subm Dr: Dr. Roxanna [...] 0.7 cm and 2.5 x 1.0 cm. Water Filtration Technician sections are submitted as follows: A1-A2: CervixA3: Intact endometrium and myometriumA4: Distorted endometrium and myometriumA5-A6: LeiomyomaA7: Longer fallopian tubeA8: [place] fallopian tubeA9: Possible serosal adhesions [place] 11/08/2024 CPT:13450 Patient Age/Sex Location Account Attending Physician GALINDO JOHNSTON 44/ [facility] [id number] Dr. Roxanna King, [place] Signed (signature on file) Dr. Salvatore Shaffer MD 11/14/24 1141 Normal [facility] Comment on above: Performed By: #### P SUV ####[facility] [id number] [place], [place], [id number] White blood cell (WBC) count Ordered By: Roxanna Thurman on 11-08-2024 WBC (Bld) [#/Vol] 4.3 10*3/uL Low 4.4-11.0 [facility] Absolute lymphocyte countOrd ered By: Roxanna Thurman on 11-07-2024 Lymphocytes Auto (Unsp spec) [#/Vol] 1.04 10*3/uL 0.83-4.51 [facility] Absolute neutrophil countOrd ered By: Roxanna Thurman on 11-07-2024 Neutrophils (Bld) [#/Vol] 2.3 10*3/uL 2.0-7.7 [facility] Automated lymphocyte count a s percentage of total leukocytesOrdered By: Roxanna Thurman on 11-07-2024 Lymphocytes/100 WBC Auto (Unsp spec) 26.7 % 19-41 [facility] BRCon 09-15-2025 RC Normal [facility] Comment on above: Result Comment: [id number] OP RC READY [id number] OP RC TRANSFUSED 11/07/241809 [id number] OP RC TRANSFUSED 11/07/242134 Performed By: #### L 100.0100, L503.6030, L503.6550 #### [facility] [address] [place], [address] Result Comment: [id number] OP RC READY [id number] OP RC READY [id number] OP RC READY Result Comment: [id number] OP RC NOT AVAILABLE [id number] OP RC TRANSFUSED 11/07/241809 [id number] OP RC TRANSFUSED 11/07/242134 Basophil percentageOrdered B y: Roxanna Thurman on 11-07-2024 Basophils/100 WBC (Bld) 1.0 % 0-1 [facility] CBC W/Diff, Automatedon 10-24 Absolute Lymph 1.04 X10 3/uL Normal 0.83-4.51 [facility] Comment on above: Performed By: #### L 100.0100, L503.6030, L503.6550 #### [facility] [address] [place], [address] Absolute Neut 2.3 X10 3/uL Normal 2.0-7.7 [facility] Comment on above: Performed By: #### L 100.0100, L503.6030, L503.6550 #### [facility] [address] [place], [address] Basophils/100 WBC (Bld) 1.0 % Normal 0-1 [facility] Comment on above: Performed By: #### L 100.0100, L503.6030, L503.6550 #### [facility] [address] [place], [address] Eosinophils/100 WBC (Bld) 1.5 % Normal 0-5 [facility] Comment on above: Performed By: #### L 100.0100, L503.6030, L503.6550 #### [facility] [address] [place], [address] Erythrocyte distribution width (RBC) [Ratio] 16.9 % High 11.6-14.6 [facility] Comment on above: Performed By: #### L 100.0100, L503.6030, L503.6550 #### [facility] [address] [place], [address] Hematocrit (Bld) [Volume fraction] 23.7 % Low 37-47 [facility] Comment on above: Performed By: #### L 100.0100, L503.6030, L503.6550 #### [facility] [address] [place], [address] Hemoglobin (Bld) [Mass/Vol] 7.1 g/dL Low 12.0-15.0 [facility] Comment on above: Performed By: #### L 100.0100, L503.6030, L503.6550 #### [facility] [address] [place], [address] IG% 0.300 Normal 0.0-0.9 [facility] Comment on above: Result Comment: IG% - Immature Granulocytes (promyelocytes, myelocytes and metamyelocytes) > 1% indicates that a LEFT SHIFT is Present. Performed By: #### L 100.0100, L503.6030, L503.6550 #### [facility] [address] [place], [address] Lymphocytes/100 WBC (Bld) 26.7 % Normal 19-41 [facility] Comment on above: Performed By: #### L 100.0100, L503.6030, L503.6550 #### [facility] [address] [place], [address] MCH (RBC) [Entitic mass] 27.7 pg Normal 27.0-32.0 [facility] Comment on above: Performed By: #### L 100.0100, L503.6030, L503.6550 #### [facility] [address] [place], [address] MCHC (RBC) [Mass/Vol] 30.0 g/dL Low 32-36 [facility] Comment on above: Performed By: #### L 100.0100, L503.6030, L503.6550 #### [facility] [address] [place], [address] MCV (RBC) [Entitic vol] 92.6 fL Normal 81-99 [facility] Comment on above: Performed By: #### L 100.0100, L503.6030, L503.6550 #### [facility] [address] [place], [address] Monocytes/100 WBC (Bld) 12.3 % High 0-10 [facility] Comment on above: Performed By: #### L 100.0100, L503.6030, L503.6550 #### [facility] [address] [place], [address] Neutrophils/100 WBC (Bld) 58.2 % Normal 47-70 [facility] Comment on above: Performed By: #### L 100.0100, L503.6030, L503.6550 #### [facility] [address] [place], [address] Nucleated RBC (Bld) [#/Vol] 0 10*3/uL Normal 0-5 [facility] Comment on above: Performed By: #### L 100.0100, L503.6030, L503.6550 #### [facility] [address] [place], [address] Platelet mean volume (Bld) [Entitic vol] 11.5 fL Normal 6.2-12.0 [facility] Comment on above: Performed By: #### L 100.0100, L503.6030, L503.6550 #### [facility] [address] [place], [address] Platelets (Bld) [#/Vol] 262 10*3/uL Normal 150-450 [facility] Comment on above: Performed By: #### L 100.0100, L503.6030, L503.6550 #### [facility] [address] [place], [address] RBC (Bld) [#/Vol] 2.56 10*6/uL Low 4.2-5.4 [facility] Comment on above: Performed By: #### L 100.0100, L503.6030, L503.6550 #### [facility] [address] [place], [address] RDW SD 50.4 fl High 35.1-43.9 [facility] Comment on above: Performed By: #### L 100.0100, L503.6030, L503.6550 #### [facility] [address] [place], [address] WBC (Bld) [#/Vol] 3.9 10*3/uL Low 4.4-11.0 [facility] Comment on above: Performed By: #### L 100.0100, L503.6030, L503.6550 #### [facility] [address] [place], [address] Eosinophil percentageOrdered By: Roxanna Thurman on 11-07-2024 Eosinophils/100 WBC (Bld) 1.5 % 0-5 [facility] Immature granulocytes/100 WB C Auto (Bld)Ordered By: Roxanna Thurman on 11-07-2024 Immature granulocytes/100 WBC (Bld) 0.300 % 0.0-0.9 [facility] Comment on above: IG% - Immature Granu locytes (promyelocytes, myelocytes and metamyelocytes) > 1% indicates that a LEFT SHIFT is Present. Monocyte percentageOrdered B y: Roxanna Thurman on 11-07-2024 Monocytes/100 WBC (Bld) 12.3 % High 0-10 [facility] Neutrophil percentageOrdered By: Roxanna Eastmanlauro on 11-07-2024 Neutrophils/100 WBC (Bld) 58.2 % 47-70 [facility] Nucleated red blood cell per centageOrdered By: Roxanna Eastmanlauro on 11-07-2024 Nucleated RBC/100 WBC (Bld) [Ratio] 0 % 0-5 [facility] Type AND Screen - PAT ONLYon 11-07-2024 Ab SCREEN GEL Negative Normal [facility] Comment on above: Order Comment: NoNNNGIVE 1 TODAY AND HOLD TWO MORE FOR O.R.[id number].TOTAL HYSTERECTOMYOTHER Performed By: #### L 100.0100, L503.6030, L503.6550 #### [facility] [address] [facility] [place], [place], [address] ABO and Rh group Nom (Bld) Blood group O Rh(D) positive Normal [facility] Comment on above: Order Comment: NoNNNGIVE 1 TODAY AND HOLD TWO MORE FOR O.R.[id number].TOTAL HYSTERECTOMYOTHER Performed By: #### L 100.0100, L503.6030, L503.6550 #### [facility] [address] [place], [address] Absolute lymphocyte countOrd ered By: Marvel Corley on 11-06-2024 Lymphocytes Auto (Unsp spec) [#/Vol] 0.63 10*3/uL Low 0.83-4.51 [facility] Absolute neutrophil countOrd ered By: Marvel Corley on 11-06-2024 Neutrophils (Bld) [#/Vol] 6.1 10*3/uL 2.0-7.7 [facility] Anion gap in Serum or Plasma Ordered By: Marvel Corley on 11-06-2024 Anion gap [Moles/Vol] 11 mmol/L 5-15 [facility] Automated lymphocyte count a s percentage of total leukocytesOrdered By: Marvel Corley on 11-06-2024 Lymphocytes/100 WBC Auto (Unsp spec) 8.5 % Low 19- [facility] BUN/creatinine ratioOrdered By: Marvel Corley on 11-06-2024 Urea nitrogen/Creatinine [Mass ratio] 19.0 mg/mg - [facility] Basic Metabolic Profile (BMP )on 11-06-2024 BUN/CRE 19.0 RATIO Normal - [facility] Comment on above: Performed By: #### L 100.0100, L503.6030, L503.6550 #### [facility] [address] [place], [address] Calcium [Mass/Vol] 8.8 mg/dL Normal 7.6-11.0 [facility] Comment on above: Performed By: #### L 100.0100, L503.6030, L503.6550 #### [facility] [address] [place], [address] Chloride [Moles/Vol] 108 mmol/L Normal 98-108 [facility] Comment on above: Performed By: #### L 100.0100, L503.6030, L503.6550 #### [facility] [address] [place], [address] CO2 [Moles/Vol] 20.6 mmol/L Low 21.0-32.0 [facility] Comment on above: Performed By: #### L 100.0100, L503.6030, L503.6550 #### [facility] [address] [place], [address] Creatinine [Mass/Vol] 0.73 mg/dL Normal 0.70-1.20 [facility] Comment on above: Performed By: #### L 100.0100, L503.6030, L503.6550 #### [facility] [address] [place], [address] ECRCL 83.15 ml/min Normal 50-250 [facility] Comment on above: Performed By: #### L 100.0100, L503.6030, L503.6550 #### [facility] [address] [place], [address] GAP 11 Normal 5-15 [facility] Comment on above: Performed By: #### L 100.0100, L503.6030, L503.6550 #### [facility] [address] [place], [address] GFR/1.73 sq M.predicted among non-blacks MDRD (S/P/Bld) [Vol rate/Area] 103 mL/min/{1.73_m2} Normal >60 [facility] Comment on above: Result Comment: mL/m in/1.73m2 CKD-EPI Creatinine Equation (2020) Performed By: #### L 100.0100, L503.6030, L503.6550 #### [facility] [address] [place], [address] Glucose [Mass/Vol] 114 mg/dL High 70-99 [facility] Comment on above: Performed By: #### L 100.0100, L503.6030, L503.6550 #### [facility] [address] [place], [address] Potassium [Moles/Vol] 3.6 mmol/L Normal 3.3-5.1 [facility] Comment on above: Performed By: #### L 100.0100, L503.6030, L503.6550 #### [facility] [address] [place], [address] Sodium [Moles/Vol] 139 mmol/L Normal 133-145 [facility] Comment on above: Performed By: #### L 100.0100, L503.6030, L503.6550 #### [facility] [address] [place], [address] Urea nitrogen [Mass/Vol] 14 mg/dL Normal 4-19 [facility] Comment on above: Performed By: #### L 100.0100, L503.6030, L503.6550 #### [facility] [address] [place], [address] Basophil percentageOrdered B y: Marvel Corley on 11-06-2024 Basophils/100 WBC (Bld) 0.7 % 0-1 W [facility] CBC W/Diff, Automatedon 10-24 Absolute Lymph 0.63 X10 3/uL Low 0.83-4.51 [facility] Comment on above: Performed By: #### L 100.0100, L503.6030, L503.6550 #### [facility] [address] [place], [address] Absolute Neut 6.1 X10 3/uL Normal 2.0-7.7 [facility] Comment on above: Performed By: #### L 100.0100, L503.6030, L503.6550 #### [facility] [address] [place], [address] Basophils/100 WBC (Bld) 0.7 % Normal 0-1 [facility] Comment on above: Performed By: #### L 100.0100, L503.6030, L503.6550 #### [facility] [address] [place], [address] Eosinophils/100 WBC (Bld) 0.1 % Normal 0-5 [facility] Comment on above: Performed By: #### L 100.0100, L503.6030, L503.6550 #### [facility] [address] [place], [address] Erythrocyte distribution width (RBC) [Ratio] 17.1 % High 11.6-14.6 [facility] Comment on above: Performed By: #### L 100.0100, L503.6030, L503.6550 #### [facility] [address] [place], [address] Hematocrit (Bld) [Volume fraction] 25.5 % Low 37-47 [facility] Comment on above: Performed By: #### L 100.0100, L503.6030, L503.6550 #### [facility] [address] [place], [address] Hemoglobin (Bld) [Mass/Vol] 7.8 g/dL Low 12.0-15.0 [facility] Comment on above: Performed By: #### L 100.0100, L503.6030, L503.6550 #### [facility] [address] [place], [address] IG% 0.500 Normal 0.0-0.9 [facility] Comment on above: Result Comment: IG% - Immature Granulocytes (promyelocytes, myelocytes and metamyelocytes) > 1% indicates that a LEFT SHIFT is Present. Performed By: #### L 100.0100, L503.6030, L503.6550 #### [facility] [address] [place], [address] Lymphocytes/100 WBC (Bld) 8.5 % Low 19-41 [facility] Comment on above: Performed By: #### L 100.0100, L503.6030, L503.6550 #### [facility] [address] [place], [address] MCH (RBC) [Entitic mass] 27.9 pg Normal 27.0-32.0 [facility] Comment on above: Performed By: #### L 100.0100, L503.6030, L503.6550 #### [facility] [address] [place], [address] MCHC (RBC) [Mass/Vol] 30.6 g/dL Low 32-36 [facility] Comment on above: Performed By: #### L 100.0100, L503.6030, L503.6550 #### [facility] [address] [place], [address] MCV (RBC) [Entitic vol] 91.1 fL Normal 81-99 [facility] Comment on above: Performed By: #### L 100.0100, L503.6030, L503.6550 #### [facility] [address] [place], [address] Monocytes/100 WBC (Bld) 7.9 % Normal 0-10 [facility] Comment on above: Performed By: #### L 100.0100, L503.6030, L503.6550 #### [facility] [address] [place], [address] Neutrophils/100 WBC (Bld) 82.3 % High 47-70 [facility] Comment on above: Performed By: #### L 100.0100, L503.6030, L503.6550 #### [facility] [address] [place], [address] Nucleated RBC (Bld) [#/Vol] 0 10*3/uL Normal 0-5 [facility] Comment on above: Performed By: #### L 100.0100, L503.6030, L503.6550 #### [facility] [address] [place], [address] Platelet mean volume (Bld) [Entitic vol] 12.3 fL High 6.2-12.0 [facility] Comment on above: Performed By: #### L 100.0100, L503.6030, L503.6550 #### [facility] [address] [place], [address] Platelets (Bld) [#/Vol] 284 10*3/uL Normal 150-450 [facility] Comment on above: Performed By: #### L 100.0100, L503.6030, L503.6550 #### [facility] [address] [place], [address] RBC (Bld) [#/Vol] 2.80 10*6/uL Low 4.2-5.4 [facility] Comment on above: Performed By: #### L 100.0100, L503.6030, L503.6550 #### [facility] [address] [place], [address] RDW SD 49.8 fl High 35.1-43.9 [facility] Comment on above: Performed By: #### L 100.0100, L503.6030, L503.6550 #### [facility] [address] [place], [address] WBC (Bld) [#/Vol] 7.4 10*3/uL Normal 4.4-11.0 [facility] Comment on above: Performed By: #### L 100.0100, L503.6030, L503.6550 #### [facility] [address] [place], [address] Carbon dioxide, total [Moles /volume] in Central venous bloodOrdered By: Marvel Corley on 11-06-2024 CO2 [Moles/Vol] 20.6 mmol/L Low 21.0-32.0 [facility] Chloride assayOrdered By: Luca Corley on 11-06-2024 Chloride [Moles/Vol] 108 mmol/L 98-108 [facility] Emergency Department Summary on 11-06-2024 Emergency Department Summary [facility] Medical Records Department [address] [place] [address] Emergency Department Summary 11/06/24 MR#: [id number] Acct: [id number] Name: GALINDO JOHNSTON Rep #: [id number] : 1980 44 From: Marvel Corley MD [...] soft; Negative (more content not included)... Normal [facility] Eosinophil percentageOrdered By: Marvel Corley on 11-06-2024 Eosinophils/100 WBC (Bld) 0.1 % 0-5 [facility] Erythrocyte distribution wid th ratioOrdered By: Marvel Corley on 11-06-2024 Erythrocyte distribution width (RBC) [Ratio] 17.1 % High 11.6-14.6 [facility] Erythrocyte distribution wid th standard deviationOrdered By: Marvel Corley on 11-06-2024 Erythrocyte distribution width (RBC) [Ratio] 49.8 fl High 35.1-43.9 [facility] Glomerular filtration rate ( GFR) estimation/1.73 sq m using serum, plasma, or whole bOrdered By: Marvel Corley on 11-06-2024 GFR/1.73 sq M.predicted among non-blacks MDRD (S/P/Bld) [Vol rate/Area] 103 mL/min/{1.73_m2} >60 [facility] Comment on above: mL/min/1.73m2 CKD-EP I Creatinine Equation (2020) Hematocrit Auto (Bld) [Volum e fraction]Ordered By: Marvel Corley on 11-06-2024 Hematocrit (Bld) [Volume fraction] 25.5 % Low 37-47 [facility] Hemoglobin measurementOrdere d By: Marvel Corley on 11-06-2024 Hemoglobin (Bld) [Mass/Vol] 7.8 g/dL Low 12.0-15.0 [facility] Immature granulocytes/100 WB C Auto (Bld)Ordered By: Marvel Corley on 11-06-2024 Immature granulocytes/100 WBC (Bld) 0.500 % 0.0-0.9 [facility] Comment on above: IG% - Immature Granu locytes (promyelocytes, myelocytes and metamyelocytes) > 1% indicates that a LEFT SHIFT is Present. MCV (mean corpuscular volume ) determinationOrdered By: Marvel Corley on 11-06-2024 MCV (RBC) [Entitic vol] 91.1 fL 81-99 [facility] Mean corpuscular hemoglobin (MCH) determinationOrdered By: Marvel Corley on 11-06-2024 MCH (RBC) [Entitic mass] 27.9 pg 27.0-32.0 [facility] Mean corpuscular hemoglobin concentration (MCHC) determinationOrdered By: Marvel Corley on 11-06-2024 MCHC (RBC) [Mass/Vol] 30.6 g/dL Low 32-36 [facility] Mean platelet volume determi nationOrdered By: Marvel Corley on 11-06-2024 Platelet mean volume (Bld) [Entitic vol] 12.3 fL High 6.2-12.0 [facility] Monocyte percentageOrdered B y: Marvel Corley on 11-06-2024 Monocytes/100 WBC (Bld) 7.9 % 0-10 [facility] Neutrophil percentageOrdered By: Marvel Corley on 11-06-2024 Neutrophils/100 WBC (Bld) 82.3 % High 47-70 [facility] Nucleated red blood cell per centageOrdered By: Marvel Corley on 11-06-2024 Nucleated RBC/100 WBC (Bld) [Ratio] 0 % 0-5 [facility] Platelet countOrdered By: Luca Corley on 11-06-2024 Platelets (Bld) [#/Vol] 284 10*3/uL 150-450 [facility] Potassium measurement (mass/ volume)Ordered By: Marvel Corley on 11-06-2024 Potassium (Unsp spec) [Mass/Vol] 3.6 mmol/L 3.3-5.1 [facility] ,Serum,hCG Quali.on 11-06-2024 HCG, SERUM QUAL Negative Normal [facility] Comment on above: Performed By: #### L 100.0100, L503.6030, L503.6550 #### [facility] [address] [place] [address], [address] RBC Auto (Bld) [#/Vol]Ordere d By: Marvel Corley on 11-06-2024 RBC (Bld) [#/Vol] 2.80 10*6/uL Low 4.2-5.4 [facility] Serum beta-hCG test, qualita tiveOrdered By: Marvel Corley on 11-06-2024 Beta HCG ( test) Ql Negative [facility] Serum creatinine measurement (mass/volume)Ordered By: Marvel Corley on 11-06-2024 Creatinine [Mass/Vol] 0.73 mg/dL 0.70-1.20 [facility] Serum glucose measurement (m ass/volume)Ordered By: Marvel Corley on 11-06-2024 Glucose [Mass/Vol] 114 mg/dL High 70-99 [facility] Serum or plasma calcium mao urement (mass/volume)Ordered By: Marvel Corley on 11-06-2024 Calcium [Mass/Vol] 8.8 mg/dL 7.6-11.0 [facility] Serum or plasma urea nitroge n measurement (mass/volume)Ordered By: Marvel Corley on 11-06-2024 Urea nitrogen [Mass/Vol] 14 mg/dL 4-19 [facility] Sodium levelOrdered By: Marvel Corley on 11-06-2024 Sodium [Moles/Vol] 139 mmol/L 133-145 [facility] Type AND Screenon 11-06-2024 ABO and Rh group Nom (Bld) Blood group O Rh(D) positive Normal [facility] Comment on above: Order Comment: A Performed By: #### L 100.0100, L503.6030, L503.6550 #### [facility] [address] [place], [place], [id number] White blood cell (WBC) count Ordered By: Marvel Corley on 11-06-2024 WBC (Bld) [#/Vol] 7.4 10*3/uL 4.4-11.0 [facility] Activated partial thrombopla stin time (aPTT) in platelet poor plasma by coagulation aOrdered By: Kana Lopez on 10-25-2024 aPTT Coag (PPP) [Time] 26.9 s 24.1-36.2 [facility] CBC W/Diff, Automatedon Absolute Lymph 1.17 X10 3/uL Normal 0.83-4.51 [facility] Comment on above: Order Comment: Comme nts: day of surgery Performed By: #### L 100.0100, L503.6030, L503.6550 #### [facility] [address] [place], [place], [id number] Absolute Neut 2.9 X10 3/uL Normal 2.0-7.7 [facility] Comment on above: Order Comment: Comme nts: day of surgery Performed By: #### L 100.0100, L503.6030, L503.6550 #### [facility] [address] [place], [address] Basophils/100 WBC (Bld) 1.5 % High 0-1 [facility] Comment on above: Order Comment: Comme nts: day of surgery Performed By: #### L 100.0100, L503.6030, L503.6550 #### [facility] [address] [place], [address] Eosinophils/100 WBC (Bld) 2.1 % Normal 0-5 [facility] Comment on above: Order Comment: Comme nts: day of surgery Performed By: #### L 100.0100, L503.6030, L503.6550 #### [facility] [address] [place], [address] Erythrocyte distribution width (RBC) [Ratio] 19.4 % High 11.6-14.6 [facility] Comment on above: Order Comment: Comme nts: day of surgery Performed By: #### L 100.0100, L503.6030, L503.6550 #### [facility] [address] [place], [address] Hematocrit (Bld) [Volume fraction] 34.8 % Low 37-47 [facility] Comment on above: Order Comment: Comme nts: day of surgery Performed By: #### L 100.0100, L503.6030, L503.6550 #### [facility] [address] [place], [address] Hemoglobin (Bld) [Mass/Vol] 10.6 g/dL Low 12.0-15.0 [facility] Comment on above: Order Comment: Comme nts: day of surgery Performed By: #### L 100.0100, L503.6030, L503.6550 #### [facility] [address] [place], [address] IG% 0.400 Normal 0.0-0.9 [facility] Comment on above: Order Comment: Comme nts: day of surgery Result Comment: IG% - Immature Granulocytes (promyelocytes, myelocytes and metamyelocytes) > 1% indicates that a LEFT SHIFT is Present. Performed By: #### L 100.0100, L503.6030, L503.6550 #### [facility] [address] [place], [address] Lymphocytes/100 WBC (Bld) 24.6 % Normal 19-41 [facility] Comment on above: Order Comment: Comme nts: day of surgery Performed By: #### L 100.0100, L503.6030, L503.6550 #### [facility] [address] [place], [address] MCH (RBC) [Entitic mass] 26.9 pg Low 27.0-32.0 [facility] Comment on above: Order Comment: Comme nts: day of surgery Performed By: #### L 100.0100, L503.6030, L503.6550 #### [facility] [address] [place], [address] MCHC (RBC) [Mass/Vol] 30.5 g/dL Low 32-36 [facility] Comment on above: Order Comment: Comme nts: day of surgery Performed By: #### L 100.0100, L503.6030, L503.6550 #### [facility] [address] [place], [address] MCV (RBC) [Entitic vol] 88.3 fL Normal 81-99 [facility] Comment on above: Order Comment: Comme nts: day of surgery Performed By: #### L 100.0100, L503.6030, L503.6550 #### [facility] [address] [place], [address] Monocytes/100 WBC (Bld) 10.9 % High 0-10 [facility] Comment on above: Order Comment: Comme nts: day of surgery Performed By: #### L 100.0100, L503.6030, L503.6550 #### [facility] [address] [place], [address] Neutrophils/100 WBC (Bld) 60.5 % Normal 47-70 [facility] Comment on above: Order Comment: Comme nts: day of surgery Performed By: #### L 100.0100, L503.6030, L503.6550 #### [facility] [address] [place], [address] Nucleated RBC (Bld) [#/Vol] 0 10*3/uL Normal 0-5 [facility] Comment on above: Order Comment: Comme nts: day of surgery Performed By: #### L 100.0100, L503.6030, L503.6550 #### [facility] [address] [place], [address] Platelet mean volume (Bld) [Entitic vol] 11.8 fL Normal 6.2-12.0 [facility] Comment on above: Order Comment: Comme nts: day of surgery Performed By: #### L 100.0100, L503.6030, L503.6550 #### [facility] [address] [place], [address] Platelets (Bld) [#/Vol] 241 10*3/uL Normal 150-450 [facility] Comment on above: Order Comment: Comme nts: day of surgery Performed By: #### L 100.0100, L503.6030, L503.6550 #### [facility] [address] [place], [address] RBC (Bld) [#/Vol] 3.94 10*6/uL Low 4.2-5.4 [facility] Comment on above: Order Comment: Comme nts: day of surgery Performed By: #### L 100.0100, L503.6030, L503.6550 #### [facility] [address] [place], [address] RDW SD 50.4 fl High 35.1-43.9 [facility] Comment on above: Order Comment: Comme nts: day of surgery Performed By: #### L 100.0100, L503.6030, L503.6550 #### [facility] [address] [place], [address] WBC (Bld) [#/Vol] 4.8 10*3/uL Normal 4.4-11.0 [facility] Comment on above: Order Comment: Comme nts: day of surgery Performed By: #### L 100.0100, L503.6030, L503.6550 #### [facility] [address] [place], [address] International normalized rat io (INR) calculationOrdered By: Kana Lopez on 10-25-2024 INR Coag (Bld) [Relative time] 1.0 {INR} [facility] Magnesiumon 10-25-2024 Magnesium [Mass/Vol] 2.1 mg/dL Normal 1.5-2.2 [facility] Comment on above: Performed By: #### L 501.5200, L300.4310, L300.3900 ####[facility] [address] [place], [address] Magnesium measurement (mass/ volume)Ordered By: Kana Lopez on 10-25-2024 Magnesium (Unsp spec) [Mass/Vol] 2.1 mg/dL 1.5-2.2 [facility] Partial Thromboplast Timeon 10-25-2024 aPTT Coag (Bld) [Time] 26.9 s Normal 24.1-36.2 [facility] Comment on above: Performed By: #### L 501.5200, L300.4310, L300.3900 ####[facility] [address] [place], [address] Prothrombin Time w/INRon INR Coag (PPP) [Relative time] 1.0 {INR} Normal [facility] Comment on above: Performed By: #### L 501.5200, L300.4310, L300.3900 ####[facility] [address] [place], [address] PT Coag (PPP) [Time] 13.3 s Normal 11.7-14.9 [facility] Comment on above: Performed By: #### L 501.5200, L300.4310, L300.3900 ####[facility] [address] [place], [address] Prothrombin timeOrdered By: Kana Lopez on 10-25-2024 PT Coag (PPP) [Time] 13.3 s 11.7-14.9 [facility] Type AND Screen - PAT ONLYon 10-25-2024 Ab SCREEN GEL Negative Normal [facility] Comment on above: Order Comment: Surge ry Date: 11/08/24Reason for Laboratory Test [id number] of surgerySHYSTERECTOMY Performed By: #### L 100.0100, L503.6030, L503.6550 #### [facility] [address] [place], [address] CBC-Complete Blood Cnt No Di ffon 10-21-2024 Erythrocyte distribution width (RBC) [Ratio] 20.8 % High 11.6-14.6 [facility] Comment on above: Performed By: #### L 100.0100, L503.6030, L503.6550 #### [facility] [address] [place], [address] Hematocrit (Bld) [Volume fraction] 36.2 % Low 37-47 [facility] Comment on above: Performed By: #### L 100.0100, L503.6030, L503.6550 #### [facility] [address] [place], [address] Hemoglobin (Bld) [Mass/Vol] 10.8 g/dL Low 12.0-15.0 [facility] Comment on above: Performed By: #### L 100.0100, L503.6030, L503.6550 #### [facility] [address] [place], [address] MCH (RBC) [Entitic mass] 26.3 pg Low 27.0-32.0 [facility] Comment on above: Performed By: #### L 100.0100, L503.6030, L503.6550 #### [facility] [address] [place], [address] MCHC (RBC) [Mass/Vol] 29.8 g/dL Low 32-36 [facility] Comment on above: Performed By: #### L 100.0100, L503.6030, L503.6550 #### [facility] [address] [place], [address] MCV (RBC) [Entitic vol] 88.1 fL Normal 81-99 [facility] Comment on above: Performed By: #### L 100.0100, L503.6030, L503.6550 #### [facility] [address] [place], [address] Platelets (Bld) [#/Vol] 263 10*3/uL Normal 150-450 [facility] Comment on above: Performed By: #### L 100.0100, L503.6030, L503.6550 #### [facility] [address] [place], [address] RBC (Bld) [#/Vol] 4.11 10*6/uL Low 4.2-5.4 [facility] Comment on above: Performed By: #### L 100.0100, L503.6030, L503.6550 #### [facility] [address] [place], [address] RDW SD 69.5 fl High 35.1-43.9 [facility] Comment on above: Performed By: #### L 100.0100, L503.6030, L503.6550 #### [facility] [address] [place], [address] WBC (Bld) [#/Vol] 3.6 10*3/uL Low 4.4-11.0 [facility] Comment on above: Performed By: #### L 100.0100, L503.6030, L503.6550 #### [facility] [address] [place], [address] Erythrocyte distribution wid th ratioOrdered By: Roxanna Thurman on 10-21-2024 Erythrocyte distribution width (RBC) [Ratio] 20.8 % High 11.6-14.6 [facility] Erythrocyte distribution wid th standard deviationOrdered By: Roxanna Thurman on 10-21-2024 Erythrocyte distribution width (RBC) [Ratio] 69.5 fl High 35.1-43.9 [facility] Hematocrit Auto (Bld) [Volum e fraction]Ordered By: Roxanna Thurman on 10-21-2024 Hematocrit (Bld) [Volume fraction] 36.2 % Low 37-47 [facility] Hemoglobin measurementOrdere d By: Roxanna Thurman on 10-21-2024 Hemoglobin (Bld) [Mass/Vol] 10.8 g/dL Low 12.0-15.0 [facility] MCV (mean corpuscular volume ) determinationOrdered By: Roxanna Thurman on 10-21-2024 MCV (RBC) [Entitic vol] 88.1 fL 81-99 [facility] Mean corpuscular hemoglobin (MCH) determinationOrdered By: Roxanna Thurman on 10-21-2024 MCH (RBC) [Entitic mass] 26.3 pg Low 27.0-32.0 [facility] Mean corpuscular hemoglobin concentration (MCHC) determinationOrdered By: Roxanna Thurman on 10-21-2024 MCHC (RBC) [Mass/Vol] 29.8 g/dL Low 32-36 [facility] [employer] Office Visit Reporton 10-21-2024 [employer] Office Visit Report [facility] [address], [address] [place] [address] OFFICE VISIT Date of Service: 10/21/24 MR#: [id number] Acct: [id number] Name: GALINDO JOHNSTON Rep #: [id number] : 1980 Provider: Dr. 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 She stated that [...] 1328 Date (more content not included)... Normal [facility] Platelet countOrdered By: Luca Thurman on 10-21-2024 Platelets (Bld) [#/Vol] 263 10*3/uL 150-450 [facility] RBC Auto (Bld) [#/Vol]Ordere d By: Roxanna Thurman on 10-21-2024 RBC (Bld) [#/Vol] 4.11 10*6/uL Low 4.2-5.4 [facility] White blood cell (WBC) count Ordered By: Roxanna Thurman on 10-21-2024 WBC (Bld) [#/Vol] 3.6 10*3/uL Low 4.4-11.0 [facility] Electrocardiogram reportOrde red By: Jacob Donaldson on 10-12-2024 EKG study [facility] [address] [place] [address] 12 Lead EKG 10/11/24 1011 MR#: [id number] Acct: [id number] Name: GALINDO JOHNSTON Rep #:[id number] : [...] Normal ECG Confirmed by JACOB DONALDSON MD ([id number]), editor managing newspaper BERNIE THORNTON ([id number]) on 10/12/2024 9:33:44 AM Referred By: Roxanna King Confirmed By: JACOB DONALDSON MD 10/12/24 0933 Date _ Jacob Donaldson MD CC: Dr. Roxanna King DO; Dr. Inocencio Frye MD ~ Signed [facility] Other Phone: 12 Lead EKGon 10-11-2024 12 Lead EKG [facility] [address] [place] [address] 12 Lead EKG 10/11/24 1011 MR#: [id number] Acct: [id number] Name: GALINDO JOHNSTON Rep #: [id number] : 1980 44 From: Jacob Donaldson MD [...] Confirmed by JACOB DONALDSON MD ([id number]), editor managing newspaper BERNIE THORNTON ([id number]) on 10/12/2024 9:33:44 AM Referred By: Roxanna King Confirmed By: JACOB DONALDSON MD 10/12/24 0933 Date Jacob Donaldson MD CC: Dr. Roxanna King DO; Dr. Inocencio Frye MD Signed Normal [facility] - Chemistry and C hemistry - challengeOrdered By: Roxanna Thurman on 09-09-2024 HCG ( test) Ql (U) Negative [facility] [employer] Worker Office Visit Reporton 09-09-2024 [employer] Worker Office Visit Report [facility]'s [address], [address] [place] [address] OFFICE VISIT Date of Service: 09/09/24 MR#: [id number] Acct: [id number] Name: GALINDO JOHNSTON Rep #: [id number] : 1980 Provider: Dr. Roxanna Ramos DO Age/Sex: 44/F Location: [facility] Status: Signed Intake Vital Signs 08/30/24 20:12 09/09/24 13:21 09/09/24 13:21 Height 5 ft 4 in 5 ft 4 in 5 ft 4 in Weight: 141 lb BMI 24.2 BP 128/67 H Intake Visit Reasons: EMB and discuss Robotic Hysterectomy Chief Complaint: EMB Banking Paralegal Required: No Is patient in pain?: No [...] Fibroid uterus D25.9 CPT Codes Endometrial Biopsy (12001) Assessment and Plan Assessment and Plan (1) [...] results. 09/09/24 1401 Date Roxanna King DO [facility] Signature: Date (if applicable) CC: Normal [facility] Surgery Specimen Level Tatiana 09-09-2024 Surgery Specimen Level IV Patient Age/Sex Location Account Attending Physician GALINDO JOHNSTON 44/F LABSPEC [id number] Dr. Roxanna King, [place] Specimen: [id number] Received: 09/09/24 Status: SENTHIL Drake Num: [id number] Spec Type: ENDOM BX/C Subm Dr: Dr. [...] tissue fragments. Entirely submitted in 1 cassette. [place] 09/12/2024 CPT:22938 Patient Age/Sex Location Account Attending Physician PRESTONGALINDO MUÑOZICE 44/F LABSPEC [id number] [place] Coe Signed (signature on file) Dr. Silvia Carmichael MD 09/14/24 1437 Normal [facility] Comment on above: Performed By: #### L 100.0100, L503.6030, L503.6550 #### [facility] [address] [place], [place], [address] Absolute lymphocyte countOrd ered By: Inocencio Frye on 09-06-2024 Lymphocytes Auto (Unsp spec) [#/Vol] 1.09 10*3/uL 0.83-4.51 [facility] Absolute neutrophil countOrd ered By: Inocencio Frye on 09-06-2024 Neutrophils (Bld) [#/Vol] 3.9 10*3/uL 2.0-7.7 [facility] Automated lymphocyte count a s percentage of total leukocytesOrdered By: Inocencio Frye on 09-06-2024 Lymphocytes/100 WBC Auto (Unsp spec) 19.1 % 19-41 [facility] Basophil percentageOrdered B y: Inocencio Frye on 09-06-2024 Basophils/100 WBC (Bld) 1.9 % High 0-1 [facility] Blood polychromasia detectio n by light microscopyOrdered By: Inocencio Frye on 09-06-2024 Polychromasia LM Ql (Bld) 1+ [facility] CBC W/Diff, Automatedon 08-23 OVALOCYTE 1+ Normal [facility] Comment on above: Order Comment: Order Date: 09/06/24Order Info: 018- - CBCD Performed By: #### L 100.0100, L503.6030, L503.6550 #### [facility] [address] [place], [address] Anisocytosis Ql (Bld) 1+ Normal [facility] Comment on above: Order Comment: Order Date: 09/06/24Order Info: 018- - CBCD Performed By: #### L 100.0100, L503.6030, L503.6550 #### [facility] [address] [place], [address] MACROCYTOSIS 1+ Normal [facility] Comment on above: Order Comment: Order Date: 09/06/24Order Info: 018- - CBCD Performed By: #### L 100.0100, L503.6030, L503.6550 #### [facility] [address] [place], [address] PLT EST A Normal ADEQ [facility] Comment on above: Order Comment: Order Date: 09/06/24Order Info: 018- - CBCD Performed By: #### L 100.0100, L503.6030, L503.6550 #### [facility] [address] [place], [address] POLYCHROMASIA 1+ Normal [facility] Comment on above: Order Comment: Order Date: 09/06/24Order Info: 0184-1 - CBCD Performed By: #### L 100.0100, L503.6030, L503.6550 #### [facility] [address] [place], [address] Eosinophil percentageOrdered By: Inocencio Frye on 09-06-2024 Eosinophils/100 WBC (Bld) 3.0 % 0-5 [facility] Erythrocyte distribution wid th ratioOrdered By: Inocencio Frye on 09-06-2024 Erythrocyte distribution width (RBC) [Ratio] 27.1 % High 11.6-14.6 [facility] Erythrocyte distribution wid th standard deviationOrdered By: Inocencio Frye on 09-06-2024 Erythrocyte distribution width (RBC) [Ratio] 61.4 fl High 35.1-43.9 [facility] Hematocrit Auto (Bld) [Volum e fraction]Ordered By: Inocencio Frye on 09-06-2024 Hematocrit (Bld) [Volume fraction] 33.0 % Low 37-47 [facility] Hemoglobin measurementOrdere d By: Inocencio Frye on 09-06-2024 Hemoglobin (Bld) [Mass/Vol] 9.4 g/dL Low 12.0-15.0 [facility] Immature granulocytes/100 WB C Auto (Bld)Ordered By: Inocencio Frye on 09-06-2024 Immature granulocytes/100 WBC (Bld) 0.400 % 0.0-0.9 [facility] Comment on above: IG% - Immature Granu locytes (promyelocytes, myelocytes and metamyelocytes) > 1% indicates that a LEFT SHIFT is Present. Laboratory - Hematology and Cell countsOrdered By: Inocencio Frye on 09-06-2024 Anisocytosis Ql (Bld) 1+ [facility] MCV (mean corpuscular volume ) determinationOrdered By: Inocencio Frye on 09-06-2024 MCV (RBC) [Entitic vol] 74.7 fL Low 81-99 [facility] Macrocytes detectionOrdered By: Inocencio Frye on 09-06-2024 Macrocytes Ql (Bld) 1+ [facility] Mean corpuscular hemoglobin (MCH) determinationOrdered By: Inocencio Frye on 09-06-2024 MCH (RBC) [Entitic mass] 21.3 pg Low 27.0-32.0 [facility] Mean corpuscular hemoglobin concentration (MCHC) determinationOrdered By: Inocencio Frye on 09-06-2024 MCHC (RBC) [Mass/Vol] 28.5 g/dL Low 32-36 [facility] Monocyte percentageOrdered B y: Inocencio Frye on 09-06-2024 Monocytes/100 WBC (Bld) 7.5 % 0-10 [facility] Neutrophil percentageOrdered By: Inocencio Frye on 09-06-2024 Neutrophils/100 WBC (Bld) 68.1 % 47-70 [facility] Nucleated red blood cell per centageOrdered By: Inocencio Frye on 09-06-2024 Nucleated RBC/100 WBC (Bld) [Ratio] 0 % 0-5 [facility] Ovalocyte detectionOrdered B y: Inocencio Frye on 09-06-2024 Ovalocytes LM Ql (Bld) 1+ [facility] Platelet countOrdered By: Chacha Frye on 09-06-2024 Platelets (Bld) [#/Vol] 235 10*3/uL 150-450 [facility] Platelet estimateOrdered By: Inocencio Frye on 09-06-2024 Platelets LM Ql (Bld) A ADEQ [facility] RBC Auto (Bld) [#/Vol]Ordere d By: Inocencio Frye on 09-06-2024 RBC (Bld) [#/Vol] 4.42 10*6/uL 4.2-5.4 [facility] White blood cell (WBC) count Ordered By: Inocencio Frye on 09-06-2024 WBC (Bld) [#/Vol] 5.7 10*3/uL 4.4-11.0 [facility] Absolute lymphocyte countOrd ered By: Johnny Zamora on 08-31-2024 Lymphocytes Auto (Unsp spec) [#/Vol] 0.66 10*3/uL Low 0.83-4.51 [facility] Absolute neutrophil countOrd ered By: Johnny Zamora on 08-31-2024 Neutrophils (Bld) [#/Vol] 2.8 10*3/uL 2.0-7.7 [facility] Anion gap in Serum or Plasma Ordered By: Johnny Zamora on 08-31-2024 Anion gap [Moles/Vol] 11 mmol/L 5-15 [facility] Automated lymphocyte count a s percentage of total leukocytesOrdered By: Johnny Zamora on 08-31-2024 Lymphocytes/100 WBC Auto (Unsp spec) 16.0 % Low 19-41 [facility] BUN/creatinine ratioOrdered By: Johnny Zamora on 08-31-2024 Urea nitrogen/Creatinine [Mass ratio] 7.0 mg/mg Low 10-20 [facility] Basic Metabolic Profile (BMP )on 08-31-2024 BUN/CRE 7.0 RATIO Low 10- [facility] Comment on above: Performed By: #### L 100.0100, L503.6030, L503.6550 #### [facility] [address] [place], [address] Calcium [Mass/Vol] 8.8 mg/dL Normal 7.6-11.0 [facility] Comment on above: Performed By: #### L 100.0100, L503.6030, L503.6550 #### [facility] [address] [place], [address] Chloride [Moles/Vol] 108 mmol/L Normal 98-108 [facility] Comment on above: Performed By: #### L 100.0100, L503.6030, L503.6550 #### [facility] [address] [place], [address] CO2 [Moles/Vol] 20.5 mmol/L Low 21.0-32.0 [facility] Comment on above: Performed By: #### L 100.0100, L503.6030, L503.6550 #### [facility] [address] [place], [address] Creatinine [Mass/Vol] 0.62 mg/dL Low 0.70-1.20 [facility] Comment on above: Performed By: #### L 100.0100, L503.6030, L503.6550 #### [facility] [address] [place], [address] ECRCL 106.00 ml/min Normal 50-250 [facility] Comment on above: Performed By: #### L 100.0100, L503.6030, L503.6550 #### [facility] [address] [place], [address] GAP 11 Normal 5-15 [facility] Comment on above: Performed By: #### L 100.0100, L503.6030, L503.6550 #### [facility] [address] [place], [address] GFR/1.73 sq M.predicted among non-blacks MDRD (S/P/Bld) [Vol rate/Area] 111 mL/min/{1.73_m2} Normal >60 [facility] Comment on above: Result Comment: mL/m in/1.73m2 CKD-EPI Creatinine Equation (2020) Performed By: #### L 100.0100, L503.6030, L503.6550 #### [facility] [address] [place], [address] Glucose [Mass/Vol] 99 mg/dL Normal 70-99 [facility] Comment on above: Performed By: #### L 100.0100, L503.6030, L503.6550 #### [facility] [address] [place], [address] Potassium [Moles/Vol] 3.8 mmol/L Normal 3.3-5.1 [facility] Comment on above: Performed By: #### L 100.0100, L503.6030, L503.6550 #### [facility] [address] [place], [address] Sodium [Moles/Vol] 139 mmol/L Normal 133-145 [facility] Comment on above: Performed By: #### L 100.0100, L503.6030, L503.6550 #### [facility] [address] [place], [address] Urea nitrogen [Mass/Vol] 4 mg/dL Normal 4-19 [facility] Comment on above: Performed By: #### L 100.0100, L503.6030, L503.6550 #### [facility] [address] [place], [address] Basophil percentageOrdered B y: Johnny Zamora on 08-31-2024 Basophils/100 WBC (Bld) 1.2 % High 0-1 [facility] CBC W/Diff, Automatedon Anisocytosis Ql (Bld) 2+ Normal [facility] Comment on above: Performed By: #### L 100.0100, L503.6030, L503.6550 #### [facility] [address] [place], [place], [address] Carbon dioxide, total [Moles /volume] in Central venous bloodOrdered By: Johnny Zamora on 08-31-2024 CO2 [Moles/Vol] 20.5 mmol/L Low 21.0-32.0 [facility] Chloride assayOrdered By: Zonia Zamora on 08-31-2024 Chloride [Moles/Vol] 108 mmol/L 98-108 [facility] Consultation - OB/GYNon Consultation - PRINTER SLOTTER OPERATOR [facility] Medical Records Department [address] [place] [address] Consultation - PRINTER SLOTTER OPERATOR 08/31/24 0802 MR#: [id number] Acct: [id number] Name: GALINDO JOHNSTON Rep #: [id number] : 1980 44 From: Roxanna King DO PCP: Dr. Inocencio Frye MD Status:ADM [facility] Assessment Plan (1) Menorrhagia, premenopausal: (2) Iron [...] P 2 (2 sections) who presents to [facility] for iron deficiency anemia. She states that [...] past: none Was seeing Dr. Chandra at [facility] until 2021 Last pap: 2021 - [...] 91 Bloo (more content not included)... Normal [facility] Discharge Instruction[facility] [address] [place] [address] Instructions for Home/Discharge Instructions 08/31/24 1253 MR#: [id number] Acct: [id number] Name: GALINDO JOHNSTON Rep #: [id number] : 1980 44 From: Lori Conrad MD PCP: Dr. 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 --Please have follow-up complete blood count at follow-up with your primary care physician as noted. --water treatment plant operator office will contact you to arrange visit so that you also may have biopsy arranged as well as plan for upcoming robotic hysterectomy. --If at any point you have onset of heavy bleeding please immediately contact the water treatment plant operator office. Discharge Orders/Prescriptions Prescriptions: New medroxyprogesterone 5 mg tablet 5 mg PO DAILY 30 Days Qty: 30 0RF Rx Instructions: Agriculture Department Chair would like you to call them when [...] [Med Staff - Active Staff] - (The Agriculture Department Chair office will contact you with a visit.) Disposition Disposition (needs filled in before D/C Order can be placed): Home, Self Care 08/31/24 1253 Lori Conrad MD CC: Dr. Roxanna King DO; Dr. Inocencio Frye MD; Dr. Johnny Zamora MD Signed Normal [facility] Eosinophil percentageOrdered By: Johnny Zamora on 08-31-2024 Eosinophils/100 WBC (Bld) 1.7 % 0-5 [facility] Erythrocyte distribution wid th ratioOrdered By: Johnny Zamora on 08-31-2024 Erythrocyte distribution width (RBC) [Ratio] 20.9 % High 11.6-14.6 [facility] Erythrocyte distribution wid th standard deviationOrdered By: Johnny Zamora on 08-31-2024 Erythrocyte distribution width (RBC) [Ratio] 52.3 fl High 35.1-43.9 [facility] Glomerular filtration rate ( GFR) estimation/1.73 sq m using serum, plasma, or whole bOrdered By: Johnny Zamora on 08-31-2024 GFR/1.73 sq M.predicted among non-blacks MDRD (S/P/Bld) [Vol rate/Area] 111 mL/min/{1.73_m2} >60 [facility] Comment on above: mL/min/1.73m2 CKD-EP I Creatinine Equation (2020) Hematocrit Auto (Bld) [Volum e fraction]Ordered By: Johnny Zamora on 08-31-2024 Hematocrit (Bld) [Volume fraction] 26.2 % Low 37-47 [facility] Hemoglobin measurementOrdere d By: Johnny Zamora on 08-31-2024 Hemoglobin (Bld) [Mass/Vol] 7.5 g/dL Low 12.0-15.0 [facility] Immature granulocytes/100 WB C Auto (Bld)Ordered By: Johnny Zamora on 08-31-2024 Immature granulocytes/100 WBC (Bld) 0.200 % 0.0-0.9 [facility] Comment on above: IG% - Immature Granu locytes (promyelocytes, myelocytes and metamyelocytes) > 1% indicates that a LEFT SHIFT is Present. Iron+Iron Binding Capacityon 08-31-2024 TIBC 514 ug/dL High 250-450 [facility] Comment on above: Order Comment: OPHELIA ZER IS DOWN THAT RUNS IRON AND TIBC Performed By: #### L 503.6030, BTS, L500.2500, L100.0100 ####[facility] [address] [place], [place], [address] Laboratory - Hematology and Cell countsOrdered By: Johnny Zamora on 08-31-2024 Anisocytosis Ql (Bld) 2+ [facility] MCV (mean corpuscular volume ) determinationOrdered By: Johnny Zamora on 08-31-2024 MCV (RBC) [Entitic vol] 69.9 fL Low 81-99 [facility] Mean corpuscular hemoglobin (MCH) determinationOrdered By: Johnny Zamora on 08-31-2024 MCH (RBC) [Entitic mass] 20.0 pg Low 27.0-32.0 [facility] Mean corpuscular hemoglobin concentration (MCHC) determinationOrdered By: Johnny Zamora on 08-31-2024 MCHC (RBC) [Mass/Vol] 28.6 g/dL Low 32-36 [facility] Comment on above: Delta: 25.5 on 08/30 Monocyte percentageOrdered B y: Johnny Zamora on 08-31-2024 Monocytes/100 WBC (Bld) 13.8 % High 0-10 [facility] Neutrophil percentageOrdered By: Johnny Zamora on 08-31-2024 Neutrophils/100 WBC (Bld) 67.1 % 47-70 [facility] Nucleated red blood cell per centageOrdered By: Johnny Zamora on 08-31-2024 Nucleated RBC/100 WBC (Bld) [Ratio] 0 % 0-5 [facility] Platelet countOrdered By: Zonia Zamora on 08-31-2024 Platelets (Bld) [#/Vol] 162 10*3/uL 150-450 [facility] Potassium measurement (mass/ volume)Ordered By: Johnny Zamora on 08-31-2024 Potassium (Unsp spec) [Mass/Vol] 3.8 mmol/L 3.3-5.1 [facility] RBC Auto (Bld) [#/Vol]Ordere d By: Johnny Zamora on 08-31-2024 RBC (Bld) [#/Vol] 3.75 10*6/uL Low 4.2-5.4 [facility] Serum creatinine measurement (mass/volume)Ordered By: Johnny Zamora on 08-31-2024 Creatinine [Mass/Vol] 0.62 mg/dL Low 0.70-1.20 [facility] Serum glucose measurement (m ass/volume)Ordered By: Johnny Zamora on 08-31-2024 Glucose [Mass/Vol] 99 mg/dL 70-99 [facility] Serum or plasma calcium mao urement (mass/volume)Ordered By: Johnny Zamora on 08-31-2024 Calcium [Mass/Vol] 8.8 mg/dL 7.6-11.0 [facility] Serum or plasma urea nitroge n measurement (mass/volume)Ordered By: Johnny Zamora on 08-31-2024 Urea nitrogen [Mass/Vol] 4 mg/dL 4-19 [facility] Sodium levelOrdered By: Sanju Zamora on 08-31-2024 Sodium [Moles/Vol] 139 mmol/L 133-145 [facility] T4 Free Directon 08-31-2024 T4 FREE DIRECT 1.10 ng/dL Normal 0.76-1.46 [facility] Comment on above: Performed By: #### L 100.0100, L503.6030, L503.6550 #### [facility] [address] [place], [address] T4 freeOrdered By: Roxanna Thurman on 08-31-2024 Free T4 [Mass/Vol] 1.10 ng/dL 0.76-1.46 [facility] TSH DL <= 0.005 mIU/L QnOrde red By: Roxanna Thurman on 08-31-2024 TSH Qn 2.870 uIU/mL 0.300-4.200 [facility] Thyroid Stim Hormone (TSH)on 08-31-2024 TSH 2.870 uIU/mL Normal 0.300-4.200 [facility] Comment on above: Performed By: #### L 100.0100, L503.6030, L503.6550 #### [facility] [address] [place], [place], [address] Transvaginal Non-on 08-31-2024 Transvaginal Non- [facility] Services [address] [place], [place] [address] Transvaginal Non- MR#: [id number] Acct: [id number] Name: GALINDO JOHNSTON Rep #: [id number] : 1980 F 44 From: Darrin godinez MD PCP: Dr. Inocencio Frye MD Status: ADM ROMINA Study: Transvaginal Non- Date of Exam: Exam# [id number] Ordering Dr: Lori Conrad MD PROCEDURE: TRANSVAGINAL [...] cm 6.5 cm subendometrial fibroid. Reading Location: [place] [address] CC: Dr. Lori Conrad MD; Dr. Inocencio Frye MD Manual Arts Therapist: Signed Normal [facility] White blood cell (WBC) count Ordered By: Johnny Zamora on 08-31-2024 WBC (Bld) [#/Vol] 4.1 10*3/uL Low 4.4-11.0 [facility] Absolute lymphocyte countOrd ered By: Joselito Maldonado on 08-30-2024 Lymphocytes Auto (Unsp spec) [#/Vol] 1.12 10*3/uL 0.83-4.51 [facility] Absolute lymphocyte countOrd ered By: Inocencio Frye on 08-30-2024 Lymphocytes Auto (Unsp spec) [#/Vol] 0.93 10*3/uL 0.83-4.51 [facility] Absolute neutrophil countOrd ered By: Joselito Maldonado on 08-30-2024 Neutrophils (Bld) [#/Vol] 3.0 10*3/uL 2.0-7.7 [facility] Absolute neutrophil countOrd ered By: Inocencio Frye on 08-30-2024 Neutrophils (Bld) [#/Vol] 1.6 10*3/uL Low 2.0-7.7 [facility] Anion gap in Serum or Plasma Ordered By: Joselito Maldonado on 08-30-2024 Anion gap [Moles/Vol] 13 mmol/L 07-07 [facility] Anion gap in Serum or Plasma Ordered By: Inocencio Frye on 08-30-2024 Anion gap [Moles/Vol] 10 mmol/L 07-07 [facility] Automated lymphocyte count a s percentage of total leukocytesOrdered By: Joselito Maldonado on 08-30-2024 Lymphocytes/100 WBC Auto (Unsp spec) 22.6 % [facility] Automated lymphocyte count a s percentage of total leukocytesOrdered By: Inocencio Frye on 08-30-2024 Lymphocytes/100 WBC Auto (Unsp spec) 29.5 % [facility] BRCon 08-30-2024 RC Normal [facility] Comment on above: Result Comment: [id number] OP RC TRANSFUSED 08/30/24 1824 [id number] OP RC TRANSFUSED 08/30/24 1649 Performed By: #### L 100.0100, L503.6030, L503.6550 #### [facility] [address] [place], [address] BUN/creatinine ratioOrdered By: Joselito Maldonado on 08-30-2024 Urea nitrogen/Creatinine [Mass ratio] 12.8 mg/mg 12-12 [facility] BUN/creatinine ratioOrdered By: Inocencio Frye on 08-30-2024 Urea nitrogen/Creatinine [Mass ratio] 12.5 mg/mg 12-12 [facility] Basic Metabolic Profile (BMP )on 08-30-2024 BUN/CRE 12.8 RATIO Normal 12-12 [facility] Comment on above: Performed By: #### L 503.6030, BTS, L500.2500, L100.0100 ####[facility] [address], [address] Calcium [Mass/Vol] 9.2 mg/dL Normal 7.6-11.0 [facility] Comment on above: Performed By: #### L 503.6030, BTS, L500.2500, L100.0100 ####[facility] [address] [place], [address] Chloride [Moles/Vol] 106 mmol/L Normal 98-108 [facility] Comment on above: Performed By: #### L 503.6030, BTS, L500.2500, L100.0100 ####[facility] [address], [address] CO2 [Moles/Vol] 19.2 mmol/L Low 21.0-32.0 [facility] Comment on above: Performed By: #### L 503.6030, BTS, L500.2500, L100.0100 ####[facility] [address] [place], [address] Creatinine [Mass/Vol] 0.66 mg/dL Low 0.70-1.20 [facility] Comment on above: Performed By: #### L 503.6030, BTS, L500.2500, L100.0100 ####[facility] [address] [place], [address] ECRCL 99.69 ml/min Normal 50-250 [facility] Comment on above: Performed By: #### L 503.6030, BTS, L500.2500, L100.0100 ####[facility] [address] [place], [address] GAP 13 Normal 5-15 [facility] Comment on above: Performed By: #### L 503.6030, BTS, L500.2500, L100.0100 ####[facility] [address] [place], [address] GFR/1.73 sq M.predicted among non-blacks MDRD (S/P/Bld) [Vol rate/Area] 109 mL/min/{1.73_m2} Normal >60 [facility] Comment on above: Result Comment: mL/m in/1.73m2 CKD-EPI Creatinine Equation (2020) Performed By: #### L 503.6030, BTS, L500.2500, L100.0100 ####[facility] [address] [place], [address] Glucose [Mass/Vol] 97 mg/dL Normal 70-99 [facility] Comment on above: Performed By: #### L 503.6030, BTS, L500.2500, L100.0100 ####[facility] [address] [place], [address] Potassium [Moles/Vol] 3.8 mmol/L Normal 3.3-5.1 [facility] Comment on above: Result Comment: Hemo lysis present, Results??could be affected. ?? Performed By: #### L 503.6030, BTS, L500.2500, L100.0100 ####[facility] [address] [place], [address] Sodium [Moles/Vol] 139 mmol/L Normal 133-145 [facility] Comment on above: Performed By: #### L 503.6030, BTS, L500.2500, L100.0100 ####[facility] [address] [place], [address] Urea nitrogen [Mass/Vol] 8 mg/dL Normal 4-19 [facility] Comment on above: Performed By: #### L 503.6030, BTS, L500.2500, L100.0100 ####[facility] [address] [place], [address] Basophil percentageOrdered B y: Joselito Maldonado on 08-30-2024 Basophils/100 WBC (Bld) 1.0 % 0-1 [facility] Basophil percentageOrdered B y: Inocencio Frye on 08-30-2024 Basophils/100 WBC (Bld) 1.3 % High 0-1 [facility] Bilirubin, totalOrdered By: Inocencio Frye on 08-30-2024 Bilirubin [Mass/Vol] 0.40 mg/dL 0.00-1.30 [facility] CBC W/Diff, Automatedon Hemoglobin (Bld) [Mass/Vol] 5.9 g/dL Invalid Interpretation Code 12.0-15.0 [facility] Comment on above: Result Comment: CRITICAL VALUE CALLED TO DREA VIERA 08/30/24 [address] Sil[address]. RESULTS READ BACK BY SAME. Performed By: #### L 503.6030, BTS, L500.2500, L100.0100 ####[facility] [address] [place], [address] MPV TNP Normal 6.2-12.0 [facility] Comment on above: Performed By: #### L 503.6030, BTS, L500.2500, L100.0100 ####[facility] [address] [place], [address] Absolute Lymph 1.12 X10 3/uL Normal 0.83-4.51 [facility] Comment on above: Performed By: #### L 503.6030, BTS, L500.2500, L100.0100 ####[facility] [address] [place], [address] Absolute Neut 3.0 X10 3/uL Normal 2.0-7.7 [facility] Comment on above: Performed By: #### L 503.6030, BTS, L500.2500, L100.0100 ####[facility] [address] [place], [address] Basophils/100 WBC (Bld) 1.0 % Normal 0-1 [facility] Comment on above: Performed By: #### L 503.6030, BTS, L500.2500, L100.0100 ####[facility] [address] [place], [address] Eosinophils/100 WBC (Bld) 2.2 % Normal 0-5 [facility] Comment on above: Performed By: #### L 503.6030, BTS, L500.2500, L100.0100 ####[facility] [address] [place], [address] Erythrocyte distribution width (RBC) [Ratio] 18.8 % High 11.6-14.6 [facility] Comment on above: Performed By: #### L 503.6030, BTS, L500.2500, L100.0100 ####[facility] [address] [place], [address] Hematocrit (Bld) [Volume fraction] 23.1 % Low 37-47 [facility] Comment on above: Performed By: #### L 503.6030, BTS, L500.2500, L100.0100 ####[facility] [address] [place], [address] IG% 0.400 Normal 0.0-0.9 [facility] Comment on above: Result Comment: IG% - Immature Granulocytes (promyelocytes, myelocytes and metamyelocytes) > 1% indicates that a LEFT SHIFT is Present. Performed By: #### L 503.6030, BTS, L500.2500, L100.0100 ####[facility] [address] [place], [address] Lymphocytes/100 WBC (Bld) 22.6 % Normal 19-41 [facility] Comment on above: Performed By: #### L 503.6030, BTS, L500.2500, L100.0100 ####[facility] [address] [place], [address] MCH (RBC) [Entitic mass] 17.1 pg Low 27.0-32.0 [facility] Comment on above: Performed By: #### L 503.6030, BTS, L500.2500, L100.0100 ####[facility] [address] [place], [address] MCHC (RBC) [Mass/Vol] 25.5 g/dL Low 32-36 [facility] Comment on above: Performed By: #### L 503.6030, BTS, L500.2500, L100.0100 ####[facility] [address] [place], [address] MCV (RBC) [Entitic vol] 67.0 fL Low 81-99 [facility] Comment on above: Performed By: #### L 503.6030, BTS, L500.2500, L100.0100 ####[facility] [address] [place], [address] Monocytes/100 WBC (Bld) 12.7 % High 0-10 [facility] Comment on above: Performed By: #### L 503.6030, BTS, L500.2500, L100.0100 ####[facility] [address] [place], [address] Neutrophils/100 WBC (Bld) 61.1 % Normal 47-70 [facility] Comment on above: Performed By: #### L 503.6030, BTS, L500.2500, L100.0100 ####[facility] [address] [place], [address] Nucleated RBC (Bld) [#/Vol] 0 10*3/uL Normal 0-5 [facility] Comment on above: Performed By: #### L 503.6030, BTS, L500.2500, L100.0100 ####[facility] [address] [place], [address] Platelets (Bld) [#/Vol] 204 10*3/uL Normal 150-450 [facility] Comment on above: Performed By: #### L 503.6030, BTS, L500.2500, L100.0100 ####[facility] [address] [place], [address] RBC (Bld) [#/Vol] 3.45 10*6/uL Low 4.2-5.4 [facility] Comment on above: Performed By: #### L 503.6030, BTS, L500.2500, L100.0100 ####[facility] [address] [place], [address] RDW SD 44.3 fl High 35.1-43.9 [facility] Comment on above: Performed By: #### L 503.6030, BTS, L500.2500, L100.0100 ####[facility] [address] [place], [address] WBC (Bld) [#/Vol] 5.0 10*3/uL Normal 4.4-11.0 [facility] Comment on above: Performed By: #### L 503.6030, BTS, L500.2500, L100.0100 ####[facility] [address] [place], [address] Absolute Lymph 0.93 X10 3/uL Normal 0.83-4.51 [facility] Comment on above: Performed By: #### L 100.0100, L503.6030, L503.6550 #### [facility] [address] [place], [address] Absolute Neut 1.6 X10 3/uL Low 2.0-7.7 [facility] Comment on above: Performed By: #### L 100.0100, L503.6030, L503.6550 #### [facility] [address] [place], [address] Basophils/100 WBC (Bld) 1.3 % High 0-1 [facility] Comment on above: Performed By: #### L 100.0100, L503.6030, L503.6550 #### [facility] [address] [place], [address] Eosinophils/100 WBC (Bld) 2.9 % Normal 0-5 [facility] Comment on above: Performed By: #### L 100.0100, L503.6030, L503.6550 #### [facility] [address] [place], [address] Erythrocyte distribution width (RBC) [Ratio] 18.6 % High 11.6-14.6 [facility] Comment on above: Performed By: #### L 100.0100, L503.6030, L503.6550 #### [facility] [address] [place], [address] Hematocrit (Bld) [Volume fraction] 21.4 % Low 37-47 [facility] Comment on above: Performed By: #### L 100.0100, L503.6030, L503.6550 #### [facility] [address] [place], [address] Hemoglobin (Bld) [Mass/Vol] 5.5 g/dL Invalid Interpretation Code 12.0-15.0 [facility] Comment on above: Performed By: #### L 100.0100, L503.6030, L503.6550 #### [facility] [address] [place], [address] IG% 0.000 Normal 0.0-0.9 [facility] Comment on above: Result Comment: IG% - Immature Granulocytes (promyelocytes, myelocytes and metamyelocytes) > 1% indicates that a LEFT SHIFT is Present. Performed By: #### L 100.0100, L503.6030, L503.6550 #### [facility] [address] [place], [address] Lymphocytes/100 WBC (Bld) 29.5 % Normal 19-41 [facility] Comment on above: Performed By: #### L 100.0100, L503.6030, L503.6550 #### [facility] [address] [place], [address] MCH (RBC) [Entitic mass] 17.1 pg Low 27.0-32.0 [facility] Comment on above: Performed By: #### L 100.0100, L503.6030, L503.6550 #### [facility] [address] [place], [address] MCHC (RBC) [Mass/Vol] 25.7 g/dL Low 32-36 [facility] Comment on above: Performed By: #### L 100.0100, L503.6030, L503.6550 #### [facility] [address] [place], [address] MCV (RBC) [Entitic vol] 66.7 fL Low 81-99 [facility] Comment on above: Performed By: #### L 100.0100, L503.6030, L503.6550 #### [facility] [address] [place], [address] Monocytes/100 WBC (Bld) 17.1 % High 0-10 [facility] Comment on above: Performed By: #### L 100.0100, L503.6030, L503.6550 #### [facility] [address] [place], [address] Neutrophils/100 WBC (Bld) 49.2 % Normal 47-70 [facility] Comment on above: Performed By: #### L 100.0100, L503.6030, L503.6550 #### [facility] [address] [place], [address] Nucleated RBC (Bld) [#/Vol] 0 10*3/uL Normal 0-5 [facility] Comment on above: Performed By: #### L 100.0100, L503.6030, L503.6550 #### [facility] [address] [place], [address] Platelets (Bld) [#/Vol] 189 10*3/uL Normal 150-450 [facility] Comment on above: Performed By: #### L 100.0100, L503.6030, L503.6550 #### [facility] [address] [place], [address] RBC (Bld) [#/Vol] 3.21 10*6/uL Low 4.2-5.4 [facility] Comment on above: Performed By: #### L 100.0100, L503.6030, L503.6550 #### [facility] [address] [place], [address] RDW SD 43.9 fl Normal 35.1-43.9 [facility] Comment on above: Performed By: #### L 100.0100, L503.6030, L503.6550 #### [facility] [address] [place], [address] WBC (Bld) [#/Vol] 3.2 10*3/uL Low 4.4-11.0 [facility] Comment on above: Performed By: #### L 100.0100, L503.6030, L503.6550 #### [facility] [address] [place], [address] Carbon dioxide, total [Moles /volume] in Central venous bloodOrdered By: Joselito Maldonado on 08-30-2024 CO2 [Moles/Vol] 19.2 mmol/L Low 21.0-32.0 [facility] Carbon dioxide, total [Moles /volume] in Central venous bloodOrdered By: Inocencio Frye on 08-30-2024 CO2 [Moles/Vol] 21.7 mmol/L 21.0-32.0 [facility] Chloride assayOrdered By: Rush Maldonado on 08-30-2024 Chloride [Moles/Vol] 106 mmol/L 98-108 [facility] Chloride assayOrdered By: Chacha Frye on 08-30-2024 Chloride [Moles/Vol] 107 mmol/L 98-108 [facility] Comprehensive Metabolic Prof ilon 08-30-2024 Albumin [Mass/Vol] 4.5 g/dL Normal 3.5-5.0 [facility] Comment on above: Performed By: #### L 100.0100, L503.6030, L503.6550 #### [facility] [address] [place], [address] Albumin/Globulin [Mass ratio] 1.8 {ratio} Normal 0.9-2.4 [facility] Comment on above: Performed By: #### L 100.0100, L503.6030, L503.6550 #### [facility] [address] [place], [address] ALK PHOS 44 U/L Normal 35-104 [facility] Comment on above: Performed By: #### L 100.0100, L503.6030, L503.6550 #### [facility] [address] [place], [address] ALT [Catalytic activity/Vol] 7 U/L Normal <=34 [facility] Comment on above: Performed By: #### L 100.0100, L503.6030, L503.6550 #### [facility] [address] [place], [address] AST [Catalytic activity/Vol] 13 U/L Normal <=31 [facility] Comment on above: Performed By: #### L 100.0100, L503.6030, L503.6550 #### [facility] [address] [place], [address] Bilirubin [Mass/Vol] 0.40 mg/dL Normal 0.00-1.30 [facility] Comment on above: Performed By: #### L 100.0100, L503.6030, L503.6550 #### [facility] [address] [place], [address] BUN/CRE 12.5 RATIO Normal 10-20 [facility] Comment on above: Performed By: #### L 100.0100, L503.6030, L503.6550 #### [facility] [address] [place], [address] Calcium [Mass/Vol] 9.0 mg/dL Normal 7.6-11.0 [facility] Comment on above: Performed By: #### L 100.0100, L503.6030, L503.6550 #### [facility] [address] [place], [address] Chloride [Moles/Vol] 107 mmol/L Normal 98-108 [facility] Comment on above: Performed By: #### L 100.0100, L503.6030, L503.6550 #### [facility] [address] [place], [address] CO2 [Moles/Vol] 21.7 mmol/L Normal 21.0-32.0 [facility] Comment on above: Performed By: #### L 100.0100, L503.6030, L503.6550 #### [facility] [address] [place], [address] Creatinine [Mass/Vol] 0.63 mg/dL Low 0.70-1.20 [facility] Comment on above: Performed By: #### L 100.0100, L503.6030, L503.6550 #### [facility] [address] [place], [address] GAP 10 Normal 5-15 [facility] Comment on above: Performed By: #### L 100.0100, L503.6030, L503.6550 #### [facility] [address] [place], [address] GFR/1.73 sq M.predicted among non-blacks MDRD (S/P/Bld) [Vol rate/Area] 111 mL/min/{1.73_m2} Normal >60 [facility] Comment on above: Result Comment: mL/m in/1.73m2 CKD-EPI Creatinine Equation (2020) Performed By: #### L 100.0100, L503.6030, L503.6550 #### [facility] [address] [place], [address] Globulin (S) [Mass/Vol] 2.6 g/dL Normal 2.2-4.2 [facility] Comment on above: Performed By: #### L 100.0100, L503.6030, L503.6550 #### [facility] [address] [place], [address] Glucose [Mass/Vol] 94 mg/dL Normal 70-99 [facility] Comment on above: Performed By: #### L 100.0100, L503.6030, L503.6550 #### [facility] [address] [place], [address] Potassium [Moles/Vol] 3.8 mmol/L Normal 3.3-5.1 [facility] Comment on above: Performed By: #### L 100.0100, L503.6030, L503.6550 #### [facility] [address] [place], [address] Sodium [Moles/Vol] 138 mmol/L Normal 133-145 [facility] Comment on above: Performed By: #### L 100.0100, L503.6030, L503.6550 #### [facility] [address] [place], [address] T PROT 7.0 g/dL Normal 5.9-8.4 [facility] Comment on above: Performed By: #### L 100.0100, L503.6030, L503.6550 #### [facility] [address] [place], [address] Urea nitrogen [Mass/Vol] 8 mg/dL Normal 4-19 [facility] Comment on above: Performed By: #### L 100.0100, L503.6030, L503.6550 #### [facility] [address] [place], [address] Emergency Department Summary on 08-30-2024 Emergency Department Summary [facility] [address] [facility] [place] [address] Emergency Department Summary 08/30/24 MR#: [id number] Acct: [id number] Name: GALINDO JOHNSTON Rep #: [id number] : 1980 44 From: Joselito Maldonado DO PCP: Dr. Inocencio rFye MD Status:REG ER Location: ED HPI History [...] Medical deci (more content not included)... Normal [facility] Eosinophil percentageOrdered By: Joselito Maldonado on 08-30-2024 Eosinophils/100 WBC (Bld) 2.2 % 0-5 [facility] Eosinophil percentageOrdered By: Inocencio Frye on 08-30-2024 Eosinophils/100 WBC (Bld) 2.9 % 0-5 [facility] Erythrocyte distribution wid th ratioOrdered By: Joselito Maldonado on 08-30-2024 Erythrocyte distribution width (RBC) [Ratio] 18.8 % High 11.6-14.6 [facility] Erythrocyte distribution wid th ratioOrdered By: Inocencio Frye on 08-30-2024 Erythrocyte distribution width (RBC) [Ratio] 18.6 % High 11.6-14.6 [facility] Erythrocyte distribution wid th standard deviationOrdered By: Joselito Le on 08-30-2024 Erythrocyte distribution width (RBC) [Ratio] 44.3 fl High 35.1-43.9 [facility] Erythrocyte distribution wid th standard deviationOrdered By: Inocencio Frye on 08-30-2024 Erythrocyte distribution width (RBC) [Ratio] 43.9 fl 35.1-43.9 [facility] Ferritinon 08-30-2024 Ferritin [Mass/Vol] 4 ng/mL Low 22-378 [facility] Comment on above: Performed By: #### L 100.0100, L503.6030, L503.6550 #### [facility] [address] [place], [place], [address] Glomerular filtration rate ( GFR) estimation/1.73 sq m using serum, plasma, or whole bOrdered By: Joselito Maldonado on 08-30-2024 GFR/1.73 sq M.predicted among non-blacks MDRD (S/P/Bld) [Vol rate/Area] 109 mL/min/{1.73_m2} >60 [facility] Comment on above: mL/min/1.73m2 CKD-EP I Creatinine Equation (2020) Glomerular filtration rate ( GFR) estimation/1.73 sq m using serum, plasma, or whole bOrdered By: Inocencio Frye on 08-30-2024 GFR/1.73 sq M.predicted among non-blacks MDRD (S/P/Bld) [Vol rate/Area] 111 mL/min/{1.73_m2} >60 [facility] Comment on above: mL/min/1.73m2 CKD-EP I Creatinine Equation (2020) H AND P Exam - Hospitaliston 08-30-2024 H&P Exam - Hospitalist [facility] [address] [place] [address] H P Exam - Hospitalist 08/30/24 1852 MR#: [id number] Acct: [id number] Name: GALINDO JOHNSTON Rep #: [id number] : 1980 44 From: Johnny Zamora MD PCP: Dr. Inocencio Frye MD Status:ADM ROMINA Location: [place] [address]-1 HPI - General General Date of Admission: [...] on vitals including heart rate [facility] Anxiety Former smoker [...] 100 100 (more content not included)... Normal [facility] HH, Hemoglobin AND Hematocri ton 08-30-2024 Hematocrit (Bld) [Volume fraction] 26.6 % Low [address] [place] [address] Comment on above: Order Comment: Comme nts: After blood transfusion Performed By: #### L 100.0500 #### [facility] [address] [place], [address] Hemoglobin (Bld) [Mass/Vol] 7.7 g/dL Low 12.0-15.0 [facility] Comment on above: Order Comment: Comme nts: After blood transfusion Performed By: #### L 100.0500 #### [facility] [address] [place], [address] Hematocrit Auto (Bld) [Volum e fraction]Ordered By: Joselito Maldonado on 08-30-2024 Hematocrit (Bld) [Volume fraction] 23.1 % Low [address] [place] [address] Hematocrit Auto (Bld) [Volum e fraction]Ordered By: Inocencio Frye on 08-30-2024 Hematocrit (Bld) [Volume fraction] 21.4 % Low [address] [place] [address] Hemoglobin measurementOrdere d By: Joselito Maldonado on 08-30-2024 Hemoglobin (Bld) [Mass/Vol] 5.9 g/dL Low 12.0-15.0 [facility] Comment on above: CRITICAL VALUE HESTER D TO DREA VIERA08/30/24 [address].RESULTS READ BACK BY SAME. Hemoglobin measurementOrdere d By: Inocencio Frye on 08-30-2024 Hemoglobin (Bld) [Mass/Vol] 5.5 g/dL Critically low 12.0-15.0 [facility] Immature granulocytes/100 WB C Auto (Bld)Ordered By: Joselito Maldonado on 08-30-2024 Immature granulocytes/100 WBC (Bld) 0.400 % 0.0-0.9 [facility] Comment on above: IG% - Immature Granu locytes (promyelocytes, myelocytes and metamyelocytes) > 1% indicates that a LEFT SHIFT is Present. Immature granulocytes/100 WB C Auto (Bld)Ordered By: Inocencio Frye on 08-30-2024 Immature granulocytes/100 WBC (Bld) 0.000 % 0.0-0.9 [facility] Comment on above: IG% - Immature Granu locytes (promyelocytes, myelocytes and metamyelocytes) > 1% indicates that a LEFT SHIFT is Present. Iron measurement (mass/mass) Ordered By: Joselito Maldonado on 08-30-2024 Iron (Unsp spec) [Mass/Mass] 10 ug/dL Low 50-170 [facility] Iron measurement (mass/mass) Ordered By: Inocencio Frye on 08-30-2024 Iron (Unsp spec) [Mass/Mass] 9 ug/dL Low 50-170 [facility] Iron+Iron Binding Capacityon 08-30-2024 TIBC 476 ug/dL High 250-450 [facility] Comment on above: Performed By: #### L 100.0100, L503.6030, L503.6550 #### [facility] [address] [place], [place], [address] Laboratory - Chemistry and C hemistry - challengeOrdered By: Inocencio Frye on 08-30-2024 AST [Catalytic activity/Vol] 13 U/L <32 [facility] MCV (mean corpuscular volume ) determinationOrdered By: Joselito Maldonado on 08-30-2024 MCV (RBC) [Entitic vol] 67.0 fL Low 81-99 [facility] MCV (mean corpuscular volume ) determinationOrdered By: Inocencio Frye on 08-30-2024 MCV (RBC) [Entitic vol] 66.7 fL Low 81-99 [facility] Magnesiumon 08-30-2024 Magnesium [Mass/Vol] 2.2 mg/dL Normal 1.5-2.2 [facility] Comment on above: Performed By: #### L 100.0100, L503.6030, L503.6550 #### [facility] [address] [place], [place], [address] Magnesium measurement (mass/ volume)Ordered By: Johnny Zamora on 08-30-2024 Magnesium (Unsp spec) [Mass/Vol] 2.2 mg/dL 1.5-2.2 [facility] Mean corpuscular hemoglobin (MCH) determinationOrdered By: Joselito Maldonado on 08-30-2024 MCH (RBC) [Entitic mass] 17.1 pg Low 27.0-32.0 [facility] Mean corpuscular hemoglobin (MCH) determinationOrdered By: Inocencio Frye on 08-30-2024 MCH (RBC) [Entitic mass] 17.1 pg Low 27.0-32.0 [facility] Mean corpuscular hemoglobin concentration (MCHC) determinationOrdered By: Joselito Maldonado on 08-30-2024 MCHC (RBC) [Mass/Vol] 25.5 g/dL Low 32-36 [facility] Mean corpuscular hemoglobin concentration (MCHC) determinationOrdered By: Inocencio Frye on 08-30-2024 MCHC (RBC) [Mass/Vol] 25.7 g/dL Low 32-36 [facility] Mean platelet volume determi nationOrdered By: Joselito Maldonado on 08-30-2024 Mean platelet volume determination [facility] Comment on above: Test not performed Monocyte percentageOrdered B y: Joselito Maldonado on 08-30-2024 Monocytes/100 WBC (Bld) 12.7 % High 0-10 [facility] Monocyte percentageOrdered B y: nIocencio Frye on 08-30-2024 Monocytes/100 WBC (Bld) 17.1 % High 0-10 [facility] Neutrophil percentageOrdered By: Joselito Maldonado on 08-30-2024 Neutrophils/100 WBC (Bld) 61.1 % 47-70 [facility] Neutrophil percentageOrdered By: Inocencio Frye on 08-30-2024 Neutrophils/100 WBC (Bld) 49.2 % 47-70 [facility] No Panel InformationOrdered By: Joselito Maldonado on 08-30-2024 Unsaturated Iron Binding Capacity 504 ug/dL High 228-428 [facility] No Panel InformationOrdered By: Inocencio Frye on 08-30-2024 Unsaturated Iron Binding Capacity 467 ug/dL High 228-428 [facility] Nucleated red blood cell per centageOrdered By: Joselito Maldonado on 08-30-2024 Nucleated RBC/100 WBC (Bld) [Ratio] 0 % 0-5 [facility] Nucleated red blood cell per centageOrdered By: Inocencio Frye on 08-30-2024 Nucleated RBC/100 WBC (Bld) [Ratio] 0 % 0-5 [facility] Platelet countOrdered By: Rush Maldonado on 08-30-2024 Platelets (Bld) [#/Vol] 204 10*3/uL 150-450 [facility] Platelet countOrdered By: Chacha Frye on 08-30-2024 Platelets (Bld) [#/Vol] 189 10*3/uL 150-450 [facility] Potassium measurement (mass/ volume)Ordered By: Joselito Maldonado on 08-30-2024 Potassium (Unsp spec) [Mass/Vol] 3.8 mmol/L 3.3-5.1 [facility] Comment on above: Hemolysis present, R esults could be affected. Potassium measurement (mass/ volume)Ordered By: Inocencio Frye on 08-30-2024 Potassium (Unsp spec) [Mass/Vol] 3.8 mmol/L 3.3-5.1 [facility] RBC Auto (Bld) [#/Vol]Ordere d By: Joselito Maldonado on 08-30-2024 RBC (Bld) [#/Vol] 3.45 10*6/uL Low 4.2-5.4 [facility] RBC Auto (Bld) [#/Vol]Ordere d By: Inocencio Frye on 08-30-2024 RBC (Bld) [#/Vol] 3.21 10*6/uL Low 4.2-5.4 [facility] Serum creatinine measurement (mass/volume)Ordered By: Joselito Maldonado on 08-30-2024 Creatinine [Mass/Vol] 0.66 mg/dL Low 0.70-1.20 [facility] Serum creatinine measurement (mass/volume)Ordered By: Inocencio Frye on 08-30-2024 Creatinine [Mass/Vol] 0.63 mg/dL Low 0.70-1.20 [facility] Serum globulin measurementOr dered By: Inocencio Frye on 08-30-2024 Globulin (S) [Mass/Vol] 2.6 g/dL 2.2-4.2 [facility] Serum glucose measurement (m ass/volume)Ordered By: Joselito Maldonado on 08-30-2024 Glucose [Mass/Vol] 97 mg/dL 70-99 [facility] Serum glucose measurement (m ass/volume)Ordered By: Inocencio Frye on 08-30-2024 Glucose [Mass/Vol] 94 mg/dL 70-99 [facility] Serum or plasma alanine fontaine otransferase (ALT) measurementOrdered By: Inocencio Frye on 08-30-2024 ALT [Catalytic activity/Vol] 7 U/L <35 [facility] Serum or plasma albumin mao urement (mass/volume)Ordered By: Inocencio Frye on 08-30-2024 Albumin [Mass/Vol] 4.5 g/dL 3.5-5.0 [facility] Serum or plasma albumin/glob ulin mass ratioOrdered By: Inocencio Frye on 08-30-2024 Albumin/Globulin [Mass ratio] 1.8 {ratio} 0.9-2.4 [facility] Serum or plasma alkaline natalie sphatase measurementOrdered By: Inocencio Frye on 08-30-2024 ALP [Catalytic activity/Vol] 44 U/L 35-104 [facility] Serum or plasma calcium mao urement (mass/volume)Ordered By: Joselito Le on 08-30-2024 Calcium [Mass/Vol] 9.2 mg/dL 7.6-11.0 [facility] Serum or plasma calcium mao urement (mass/volume)Ordered By: Inocencio Frye on 08-30-2024 Calcium [Mass/Vol] 9.0 mg/dL 7.6-11.0 [facility] Serum or plasma ferritin marti surement (mass/volume)Ordered By: Inocencio Frye on 08-30-2024 Ferritin [Mass/Vol] 4 ng/mL Low 22-378 [facility] Serum or plasma iron saturat ion measurement (mass fraction)Ordered By: Joselito Maldonado on 08-30-2024 Iron saturation [Mass fraction] 1.9 % Low 13-59 [facility] Comment on above: Previous reported re sult: 2.0 %Edited by: CHARLES on 08/31/24:1903 AMENDED REPORT 08/31/241902 IRON SATURATION previously reported as: 2.0 L % Serum or plasma iron saturat ion measurement (mass fraction)Ordered By: Inocencio Frye on 08-30-2024 Iron saturation [Mass fraction] 1.9 % Low 13-59 [facility] Comment on above: Previous reported re sult: 2.0 %Edited by: WHITLEY on 08/30/24:1349 AMENDED REPORT 08/30/24 1349 IRON SATURATION previously reported as: 2.0 L % Serum or plasma urea nitroge n measurement (mass/volume)Ordered By: Joselito Maldonado on 08-30-2024 Urea nitrogen [Mass/Vol] 8 mg/dL 06-11 [facility] Serum or plasma urea nitroge n measurement (mass/volume)Ordered By: Inocencio Frye on 08-30-2024 Urea nitrogen [Mass/Vol] 8 mg/dL 06-11 [facility] Sodium levelOrdered By: Viral Maldonado on 08-30-2024 Sodium [Moles/Vol] 139 mmol/L 133-145 [facility] Sodium levelOrdered By: Inocencio Frye on 08-30-2024 Sodium [Moles/Vol] 138 mmol/L 133-145 [facility] Stool Occult Blood iFOBon STOB Negative Normal [facility] Comment on above: Performed By: #### M 100.7900 ####[facility] [id number] [place], [address] Stool gastrointestinal hemog lobin detection by immunologic methodOrdered By: Joselito Maldonado on 08-30-2024 Lower GI hemoglobin IA Ql (Stl) [facility] Total proteinOrdered By: Zackary Frye on 08-30-2024 Protein [Mass/Vol] 7.0 g/dL 5.9-8.4 [facility] Type AND Screenon 08-30-2024 Ab SCREEN GEL Negative Normal [facility] Comment on above: Order Comment: A Performed By: #### L 503.6030, BTS, L500.2500, L100.0100 ####[facility] [id number], [address] Vitamin D,25 Hydroxyon 08-30 Vitamin D 25-OH 52.1 ng/mL Normal 30-100 [facility] Comment on above: Result Comment: Lori min D Status Deficiency: <20 ng/mL (50nmol/L) Insufficiency: 20-30 ng/mL (50-75 nmol/L) Sufficiency: 30-100 ng/mL (75-250 nmol/L) Toxicity: >100 ng/mL (>250 nmol/L) Performed By: #### L 100.0100, L503.6030, L503.6550 #### [facility] [address] [place], [place], [address] White blood cell (WBC) count Ordered By: Joselito Maldonado on 08-30-2024 WBC (Bld) [#/Vol] 5.0 10*3/uL 4.4-11.0 [facility] White blood cell (WBC) count Ordered By: Inocencio Frye on 08-30-2024 WBC (Bld) [#/Vol] 3.2 10*3/uL Low 4.4-11.0 [facility] Anion gap in Serum or Plasma Ordered By: Inocencio Frye on 04-28-2024 Anion gap [Moles/Vol] 14 mmol/L 5-15 [facility] BUN/creatinine ratioOrdered By: Inocencio Frye on 04-28-2024 Urea nitrogen/Creatinine [Mass ratio] 12.2 mg/mg 10-20 [facility] Bilirubin, totalOrdered By: Inocencio Frye on 04-28-2024 Bilirubin [Mass/Vol] 0.57 mg/dL 0.00-1.30 [facility] Carbon dioxide, total [Moles /volume] in Central venous bloodOrdered By: Inocencio Frye on 04-28-2024 CO2 [Moles/Vol] 20.3 mmol/L Low 21.0-32.0 [facility] Chloride assayOrdered By: Chacha Frye on 04-28-2024 Chloride [Moles/Vol] 102 mmol/L 98-108 [facility] Comprehensive Metabolic Prof ilon 04-28-2024 Albumin [Mass/Vol] 4.3 g/dL Normal 3.5-5.0 [facility] Comment on above: Order Comment: Order Date: 04/28/24 Order Info: 0786-1 - CMP Performed By: #### L 500.4050 #### [facility] [address] [place], [address] Albumin/Globulin [Mass ratio] 1.4 {ratio} Normal 0.9-2.4 [facility] Comment on above: Order Comment: Order Date: 04/28/24 Order Info: 0786-1 - CMP Performed By: #### L 500.4050 #### [facility] [address] [place], [address] ALK PHOS 52 U/L Normal 35-104 [facility] Comment on above: Order Comment: Order Date: 04/28/24 Order Info: 0786-1 - CMP Performed By: #### L 500.4050 #### [facility] [address] [place], [address] ALT [Catalytic activity/Vol] 8 U/L Normal <=34 [facility] Comment on above: Order Comment: Order Date: 04/28/24 Order Info: 0786-1 - CMP Performed By: #### L 500.4050 #### [facility] [address] [place], [address] AST [Catalytic activity/Vol] 15 U/L Normal <=31 [facility] Comment on above: Order Comment: Order Date: 04/28/24 Order Info: 0786-1 - CMP Performed By: #### L 500.4050 #### [facility] [address] [place], [address] Bilirubin [Mass/Vol] 0.57 mg/dL Normal 0.00-1.30 [facility] Comment on above: Order Comment: Order Date: 04/28/24 Order Info: 0786-1 - CMP Performed By: #### L 500.4050 #### [facility] [address] [place], [address] BUN/CRE 12.2 RATIO Normal 10-20 [facility] Comment on above: Order Comment: Order Date: 04/28/24 Order Info: 0786-1 - CMP Performed By: #### L 500.4050 #### [facility] [address] [place], [address] Calcium [Mass/Vol] 9.1 mg/dL Normal 7.6-11.0 [facility] Comment on above: Order Comment: Order Date: 04/28/24 Order Info: 0786-1 - CMP Performed By: #### L [id number] #### [facility] [address] [place], [address] Chloride [Moles/Vol] 102 mmol/L Normal 98-108 [facility] Comment on above: Order Comment: Order Date: 04/28/24 Order Info: 0786-1 - CMP Performed By: #### L [id number] #### [facility] [address] [place], [address] CO2 [Moles/Vol] 20.3 mmol/L Low 21.0-32.0 [facility] Comment on above: Order Comment: Order Date: 04/28/24 Order Info: 0786-1 - CMP Performed By: #### L [id number] #### [facility] [address] [place], [address] Creatinine [Mass/Vol] 0.72 mg/dL Normal 0.70-1.20 [facility] Comment on above: Order Comment: Order Date: 04/28/24 Order Info: 0786-1 - CMP Performed By: #### L [id number] #### [facility] [address] [place], [address] GAP 14 Normal 5-15 [facility] Comment on above: Order Comment: Order Date: 04/28/24 Order Info: 0786-1 - CMP Performed By: #### L [id number] #### [facility] [address] [place], [address] GFR/1.73 sq M.predicted among non-blacks MDRD (S/P/Bld) [Vol rate/Area] 105 mL/min/{1.73_m2} Normal >60 [facility] Comment on above: Order Comment: Order Date: 04/28/24 Order Info: 0786-1 - CMP Result Comment: mL/m in/1.73m2 CKD-EPI Creatinine Equation (2020) Performed By: #### L [id number] #### [facility] [address] [place], [address] Globulin (S) [Mass/Vol] 3.0 g/dL Normal 2.2-4.2 [facility] Comment on above: Order Comment: Order Date: 04/28/24 Order Info: 0786-1 - CMP Performed By: #### L [id number] #### [facility] [address] [place], [address] Glucose [Mass/Vol] 87 mg/dL Normal 70-99 [facility] Comment on above: Order Comment: Order Date: 04/28/24 Order Info: 0786-1 - CMP Performed By: #### L [id number] #### [facility] [address] [place], [address] Potassium [Moles/Vol] 4.0 mmol/L Normal 3.3-5.1 [facility] Comment on above: Order Comment: Order Date: 04/28/24 Order Info: 0786-1 - CMP Performed By: #### L [id number] #### [facility] [address] [place], [address] Sodium [Moles/Vol] 136 mmol/L Normal 133-145 [facility] Comment on above: Order Comment: Order Date: 04/28/24 Order Info: 0786-1 - CMP Performed By: #### L [id number] #### [facility] [address] [place], [address] T PROT 7.3 g/dL Normal 5.9-8.4 [facility] Comment on above: Order Comment: Order Date: 04/28/24 Order Info: 0786-1 - CMP Performed By: #### L [id number] #### [facility] [address] [place], [address] Urea nitrogen [Mass/Vol] 9 mg/dL Normal 4-19 [facility] Comment on above: Order Comment: Order Date: 04/28/24 Order Info: 0786-1 - CMP Performed By: #### L [id number] #### [facility] [address] [place], [address] GFR/1.73 sq M.predicted daniel g non-blacks MDRD (S/P/Bld) [Vol rate/Area]Ordered By: Inocencio Frye on 04-28-2024 Estimated GFR (MDRD) Non-Af Amer 105 >60 [facility] Comment on above: mL/min/1.73m2 CKD-EP I Creatinine Equation (2020) L506.1001on 04-28-2024 Vitamin D 25-OH 34.2 ng/mL Normal 30-100 [facility] Comment on above: Order Comment: Order Date: 04/28/24 Order Info: 0786-1 - CMP Result Comment: Lori min D Status Deficiency: <20 ng/mL (50nmol/L) Insufficiency: 20-30 ng/mL (50-75 nmol/L) Sufficiency: 30-100 ng/mL (75-250 nmol/L) Toxicity: >100 ng/mL (>250 nmol/L) Performed By: #### L 506.1001 #### [facility] [address] [place], [address] Laboratory - Chemistry and C hemistry - challengeOrdered By: Inocencio Frye on 04-28-2024 AST [Catalytic activity/Vol] 15 U/L <32 [facility] Potassium (Unsp spec) [Mass/ Vol]Ordered By: Inocencio Frye on 04-28-2024 Potassium [Moles/Vol] 4.0 mmol/L 3.3-5.1 [facility] Serum creatinine measurement (mass/volume)Ordered By: Inocencio Frye on 04-28-2024 Creatinine [Mass/Vol] 0.72 mg/dL 0.70-1.20 [facility] Serum globulin measurementOr dered By: nIocencio Frye on 04-28-2024 Globulin (S) [Mass/Vol] 3.0 g/dL 2.2-4.2 [facility] Serum glucose measurement (m ass/volume)Ordered By: Inocencio Frye on 04-28-2024 Glucose [Mass/Vol] 87 mg/dL 70-99 [facility] Serum or plasma alanine fontaine otransferase (ALT) measurementOrdered By: Inocencio Frye on 04-28-2024 ALT [Catalytic activity/Vol] 8 U/L <35 [facility] Serum or plasma albumin mao urement (mass/volume)Ordered By: Inocencio Frye on 04-28-2024 Albumin [Mass/Vol] 4.3 g/dL 3.5-5.0 [facility] Serum or plasma albumin/glob ulin mass ratioOrdered By: Inocencio Frye on 04-28-2024 Albumin/Globulin [Mass ratio] 1.4 {ratio} 0.9-2.4 [facility] Serum or plasma alkaline natalie sphatase measurementOrdered By: Inocencio Frye on 04-28-2024 ALP [Catalytic activity/Vol] 52 U/L 35-104 [facility] Serum or plasma calcium mao urement (mass/volume)Ordered By: Inocencio Frye on 04-28-2024 Calcium [Mass/Vol] 9.1 mg/dL 7.6-11.0 [facility] Serum or plasma urea nitroge n measurement (mass/volume)Ordered By: Inocencio Frye on 04-28-2024 Urea nitrogen [Mass/Vol] 9 mg/dL 4-19 [facility] Sodium levelOrdered By: Inocencio Frye on 04-28-2024 Sodium [Moles/Vol] 136 mmol/L 133-145 [facility] Total proteinOrdered By: Zackary Frye on 04-28-2024 Protein [Mass/Vol] 7.3 g/dL 5.9-8.4 [facility] Vitamin D, 25-hydroxyOrdered By: Inocencio Frye on 04-28-2024 Vitamin D 25-Hydroxy 34.2 ng/mL 30-100 [facility] Comment on above: Vitamin D StatusDefi ciency: <20 ng/mL (50nmol/L)Insufficiency: 20-30 ng/mL (50-75 nmol/L)Sufficiency: 30-100 ng/mL (75-250 nmol/L)Toxicity: >100 ng/mL (>250 nmol/L) SCREENING MAMM (CAD), [facility] 01-19-2024 SCREENING MAMM (CAD), [facility] Imaging Services [address] [place] [address] SCREENING MAMM (CAD), [facility] MR#: [id number] Acct: [id number] Name: GALINDO JOHNSTON Rep #: [id number] : 1980 F 43 From: Joaquin Miller MD PCP: Dr. Inocencio Frye MD Status: REG [facility] Study: SCREENING MAMM (CAD), [facility] Date of Exam: 12/25 08/16 Exam# [id number] Ordering Dr: Angelica Olmos CHEMICAL PROCESS ANALYST CHEMICAL PROCESS ANALYST-C [id number] MAMMOGRAPHY - BILATERAL SCREENING 3-D TOMOSYNTHESIS REASON [...] CC: RUTH Olmos; Dr. Inocencio Frye MD Manual Arts Therapist: Signed Normal [facility] Basophil percentageOrdered B y: Inocencio Frye on 06-04-2023 Bilirubin [Mass/Vol] 0.50 mg/dL 0.20-1.00 [facility] Comment on above: For patients on eltr ombopag therapy, use of Dimension [place] TBIL is not recommended. Chloride [Moles/Vol] 106 mmol/L 98-107 [facility] Glucose [Mass/Vol] 89 mg/dL 74-106 [facility] Potassium [Moles/Vol] 3.8 mmol/L 3.5-5.1 [facility] Protein [Mass/Vol] 7.3 g/dL 6.4-8.2 [facility] Sodium [Moles/Vol] 137 mmol/L 136-145 [facility] Laboratory - Chemistry and C hemistry - challengeOrdered By: Inocencio Frye on 06-04-2023 Albumin/Globulin [Mass ratio] 1.1 {ratio} 0.9-2.4 [facility] ALP [Catalytic activity/Vol] 50 U/L 45-117 [facility] ALT [Catalytic activity/Vol] 14 U/L 13-56 [facility] CO2 [Moles/Vol] 26.0 mmol/L 21.0-32.0 [facility] Globulin (S) [Mass/Vol] 3.5 g/dL 2.2-4.2 [facility] Urea nitrogen/Creatinine [Mass ratio] 15.5 mg/mg 10-20 [facility] No Panel InformationOrdered By: Inocencio Frye on 06-04-2023 Estimated GFR (MDRD) Amer 104 mL/min >60 [facility] Comment on above: GFR Calc Estimated GFR (MDRD) Non-Af Amer 86 mL/min >60 [facility] Comment on above: Non- GFR Calc Vitamin D 25-Hydroxy 39.6 ng/mL [facility] Comment on above: Vitamin D 25(OH) Sta tus Range Deficiency <20 ng/mL (50nmol/L) Insufficiency 20 - 30 ng/mL (50 - 75 nmol/L) Sufficiency 30 - 100 ng/mL (75 - 250 nmol/L) Toxicity >100 ng/mL (>250 nmol/L) Serum or plasma calcium mao urement (mass/volume)Ordered By: Inocencio Frye on 06-04-2023 Calcium [Mass/Vol] 8.7 mg/dL 8.5-10.1 [facility] Serum or plasma creatinine m easurement (mass/volume)Ordered By: Inocencio Frye on 06-04-2023 Creatinine [Mass/Vol] 0.78 mg/dL 0.55-1.02 [facility] Comment on above: The validity of the calculated GFR & GFRAA in patients over 70 years has not been determined. Clinical correlation is essential. Serum or plasma urea nitroge n measurement (mass/volume)Ordered By: Inocencio Frye on 06-04-2023 Urea nitrogen [Mass/Vol] 12 mg/dL 7-18 [facility] Thin prep Papanicolaou smear with manual screeningOrdered By: Inocencio Frye on 06-04-2023 Thin prep Papanicolaou smear with manual screening 3.8 g/dL 3.2-5.0 [facility] Thin prep Papanicolaou smear with manual screening 10 U/L 15-37 [facility] Thin prep Papanicolaou smear with manual screening 5 5-15 [facility] Basophil percentageOrdered B y: Josette Elizabeth on 12-03-2022 Cholesterol [Mass/Vol] 131 mg/dL <200 [facility] Comment on above: <200 mg/dL Desirable 200-240 mg/dL Borderline >240 mg/dL High Risk Triglyceride [Mass/Vol] 105 mg/dL <199 [facility] Comment on above: The drugs N-Acetylcy steine and Metamizole may falsely depress this assay.Serum Triglycerides Reference Interval Normal <150 mg/dL Borderline high 150 - 199 mg/dL High 200 - 499 mg/dL Very High > or = 500 mg/dL Serum or plasma cholesterol in HDL measurement (mass/volume)Ordered By: Josette Elizabeth on 12-03-2022 Cholesterol in HDL [Mass/Vol] 46 mg/dL >40 [facility] Comment on above: The drugs N-Acetylcy steine and Metamizole may falsely depress this assay. Reference Range HDL <40 mg/dL Low HDL Cholesterol HDL >or= 60 mg/dL High HDL Cholesterol Serum or plasma cholesterol in VLDL measurement (mass/volume)Ordered By: Josette Elizabeth on 12-03-2022 Cholesterol in VLDL [Mass/Vol] 21 mg/dL 5-40 [facility] Serum or plasma low density lipoprotein (LDL) cholesterol measurement (mass/volume)Ordered By: Josette Elizabeth on 12-03-2022 Cholesterol in LDL [Mass/Vol] 64 mg/dL 0-130 [facility] Basophil percentageOrdered B y: Dr. Frye on 05-27-2022 Bilirubin [Mass/Vol] 0.30 mg/dL 0.20-1.00 [facility] Comment on above: For patients on eltr ombopag therapy, use of Dimension [place] TBIL is not recommended. Chloride [Moles/Vol] 106 mmol/L 98-107 [facility] Glucose [Mass/Vol] 92 mg/dL 74-106 [facility] Potassium [Moles/Vol] 3.8 mmol/L 3.5-5.1 [facility] Protein [Mass/Vol] 7.6 g/dL 6.4-8.2 [facility] Sodium [Moles/Vol] 138 mmol/L 136-145 [facility] Laboratory - Chemistry and C hemistry - challengeOrdered By: Dr. Frye on 05-27-2022 ALP [Catalytic activity/Vol] 48 U/L 45-117 [facility] ALT [Catalytic activity/Vol] 17 U/L 13-56 [facility] CO2 [Moles/Vol] 26.0 mmol/L 21.0-32.0 [facility] Globulin (S) [Mass/Vol] 3.7 g/dL 2.2-4.2 [facility] Urea nitrogen/Creatinine [Mass ratio] 17.8 mg/mg 10-20 [facility] No Panel InformationOrdered By: Dr. Frye on 05-27-2022 Estimated GFR (MDRD) Amer 111 mL/min >60 [facility] Comment on above: GFR Calc Estimated GFR (MDRD) Non-Af Amer 92 mL/min >60 [facility] Comment on above: Non- GFR Calc Vitamin D 25-Hydroxy 66.2 ng/mL [facility] Comment on above: Vitamin D 25(OH) Sta tus Range Deficiency <20 ng/mL (50nmol/L) Insufficiency 20 - 30 ng/mL (50 - 75 nmol/L) Sufficiency 30 - 100 ng/mL (75 - 250 nmol/L) Toxicity >100 ng/mL (>250 nmol/L) Serum or plasma albumin mao urement (mass/volume)Ordered By: Dr. Frye on 05-27-2022 Albumin [Mass/Vol] 3.9 g/dL 3.2-5.0 [facility] Serum or plasma albumin/glob ulin mass ratioOrdered By: Dr. Frye on 05-27-2022 Albumin/Globulin [Mass ratio] 1.1 {ratio} 0.9-2.4 [facility] Serum or plasma calcium mao urement (mass/volume)Ordered By: Dr. Frye on 05-27-2022 Calcium [Mass/Vol] 8.9 mg/dL 8.5-10.1 [facility] Serum or plasma creatinine m easurement (mass/volume)Ordered By: Dr. Frye on 05-27-2022 Creatinine [Mass/Vol] 0.73 mg/dL 0.55-1.02 [facility] Comment on above: The validity of the calculated GFR & GFRAA in patients over 70 years has not been determined. Clinical correlation is essential. Serum or plasma urea nitroge n measurement (mass/volume)Ordered By: Dr. Frye on 05-27-2022 Urea nitrogen [Mass/Vol] 13 mg/dL 7-18 [facility] Thin prep Papanicolaou smear with manual screeningOrdered By: Dr. Frye on 05-27-2022 Thin prep Papanicolaou smear with manual screening 13 U/L 15-37 [facility] Thin prep Papanicolaou smear with manual screening 6 5-15 [facility] Basophil percentageon 2021 Bilirubin [Mass/Vol] 0.80 mg/dL 0.20-1.00 [facility] Work Phone: Comment on above: For patients on eltr ombopag therapy, use of Dimension [place] TBIL is not recommended. Chloride [Moles/Vol] 104 mmol/L 98-107 [facility] Work Phone: Glucose [Mass/Vol] 90 mg/dL 74-106 [facility] Work Phone: Potassium [Moles/Vol] 3.7 mmol/L 3.5-5.1 [facility] Work Phone: Protein [Mass/Vol] 7.9 g/dL 6.4-8.2 [facility] Work Phone: Sodium [Moles/Vol] 135 mmol/L 136-145 [facility] Work Phone: Laboratory - Chemistry and C hemistry - challengeon 05-14-2021 ALP [Catalytic activity/Vol] 49 U/L 45-117 [facility] Work Phone: ALT [Catalytic activity/Vol] 20 U/L 13-56 [facility] Work Phone: CO2 [Moles/Vol] 25.0 mmol/L 21.0-32.0 [facility] Work Phone: Globulin (S) [Mass/Vol] 3.7 g/dL 2.2-4.2 [facility] Work Phone: Urea nitrogen/Creatinine [Mass ratio] 19.4 mg/mg 10-20 [facility] Work Phone: No Panel Informationon 05-14 Estimated GFR (MDRD) Amer 114 mL/min >60 [facility] Work Phone: Comment on above: GFR Calc Estimated GFR (MDRD) Non-Af Amer 94 mL/min >60 [facility] Work Phone: Comment on above: Non- GFR Calc Thyroid Stimulating Hormone (TSH) 2.01 uIU/mL 0.358-3.74 [facility] Work Phone: Vitamin D 25-Hydroxy 67.6 ng/mL [facility] Work Phone: Comment on above: Vitamin D 25(OH) Sta tus Range Deficiency <20 ng/mL (50nmol/L) Insufficiency 20 - 30 ng/mL (50 - 75 nmol/L) Sufficiency 30 - 100 ng/mL (75 - 250 nmol/L) Toxicity >100 ng/mL (>250 nmol/L) Serum or plasma albumin mao urement (mass/volume)on 05-14-2021 Albumin [Mass/Vol] 4.2 g/dL 3.2-5.0 [facility] Work Phone: Serum or plasma albumin/glob ulin mass ratioon 05-14-2021 Albumin/Globulin [Mass ratio] 1.1 {ratio} 0.9-2.4 [facility] Work Phone: Serum or plasma calcium mao urement (mass/volume)on 05-14-2021 Calcium [Mass/Vol] 8.8 mg/dL 8.5-10.1 [facility] Work Phone: Serum or plasma creatinine m easurement (mass/volume)on 05-14-2021 Creatinine [Mass/Vol] 0.72 mg/dL 0.55-1.02 [facility] Work Phone: Comment on above: The validity of the calculated GFR & GFRAA in patients over 70 years has not been determined. Clinical correlation is essential. Serum or plasma urea nitroge n measurement (mass/volume)on 05-14-2021 Urea nitrogen [Mass/Vol] 14 mg/dL 7-18 [facility] Work Phone: Thin prep Papanicolaou smear with manual screeningon 05-14-2021 Thin prep Papanicolaou smear with manual screening 14 U/L 15-37 [facility] Work Phone: Thin prep Papanicolaou smear with manual screening 6 5-15 [facility] Work Phone: Vital Signs Date Time Vital Sign Value Performing Clinician Faci lity 11-21-2024 10:59-0400 Body height 162.[address] Inocencio Frye MD Work Phone: [facility] 11-21-2024 10:59-0400 Body mass index (BMI) [Ratio] 23.5 kg/m2 Dr. Inocencio Frye MD Work Phone: [facility] 11-21-2024 10:59-0400 Body weight 62.[address] Inocencio Frye MD Work Phone: [facility] 11-21-2024 10:59-0400 Diastolic blood pressure 78 mm[Hg] Dr. Inocencio Frye MD Work Phone: [facility] 11-21-2024 10:59-0400 Systolic blood pressure 126 mm[Hg] Dr. Inocencio Frye MD Work Phone: [facility] 11-08-2024 15:10-0400 Body temperature 97.8 [degF] Dr. Inocencio Frye MD Work Phone: [facility] 11-08-2024 15:10-0400 Diastolic blood pressure 64 mm[Hg] Dr. Inocencio Frye MD Work Phone: 4(687)453-768932 [place] [address] 11-08-2024 15:10-0400 Heart rate 83 /min Dr. Inocencio Frye MD Work Phone: [facility] 11-08-2024 15:10-0400 Respiratory rate 16 /min Dr. Inocencio Frye MD Work Phone: 5(601)157-902932 [place] [address] 11-08-2024 15:10-0400 SaO2% (BldA) [Mass fraction] 100 % Dr. Inocencio Frye MD Work Phone: 2(042)535-118332 [place] [address] 11-08-2024 15:10-0400 Systolic blood pressure 98 mm[Hg] Dr. Inocencio Frye MD Work Phone: 0(184)869-709726 [place] [address] 11-08-2024 13:00-0400 Inhaled oxygen flow rate 4 L/min Dr. Inocencio Frye MD Work Phone: 4(532)546-414926 [place] [address] 11-08-2024 09:00-0400 Body height 162.[address] Inocencio Frye MD Work Phone: 2(702)603-573132 [place] [address] 11-08-2024 09:00-0400 Body mass index (BMI) [Ratio] 23.6 kg/m2 Dr. Inocencio Frye MD Work Phone: 2(637)326-151126 [place] [address] 11-08-2024 09:00-0400 Body weight 62.[address] Inocencio Frye MD Work Phone: 8(009)565-351460 [address] 11-07-2024 23:47-0400 Body temperature 99.1 [degF] Dr. Inocencio Frye MD Work Phone: [facility] 11-07-2024 23:47-0400 Diastolic blood pressure 67 mm[Hg] Dr. Inocencio Frye MD Work Phone: 4(587)317-317332 [place] [address] 11-07-2024 23:47-0400 Heart rate 87 /min Dr. Inocencio Frye MD Work Phone: 2(015)845-307432 [place] [address] 11-07-2024 23:47-0400 Respiratory rate 16 /min Dr. Inocencio Frye MD Work Phone: 5(240)828-001332 [place] [address] 11-07-2024 23:47-0400 SaO2% (BldA) [Mass fraction] 100 % Dr. Inocencio Frye MD Work Phone: [facility] 11-07-2024 23:47-0400 Systolic blood pressure 127 mm[Hg] Dr. Inocencio Frye MD Work Phone: 1(671)504-272026 [place] [address] 11-06-2024 18:00-0400 Body temperature 98.3 [degF] Dr. Inocencio Frye MD Work Phone: 8(745)058-538232 [place] [address] 11-06-2024 18:00-0400 Diastolic blood pressure 68 mm[Hg] Dr. Inocencio Frye MD Work Phone: 5(147)610-001632 [place] [address] 11-06-2024 18:00-0400 Heart rate 79 /min Dr. Inocencio Frye MD Work Phone: 0(883)928-851726 [place] [address] 11-06-2024 18:00-0400 Respiratory rate 16 /min Dr. Inocencio Frye MD Work Phone: 3(903)011-188832 [place] [address] 11-06-2024 18:00-0400 SaO2% (BldA) [Mass fraction] 100 % Dr. Inocencio Frye MD Work Phone: 1(154)695-730732 [place] [address] 11-06-2024 18:00-0400 Systolic blood pressure 123 mm[Hg] Dr. Inocencio Frye MD Work Phone: 8(309)694-294932 [place] [address] 11-06-2024 16:07-0400 Body height 162.[address] Inocencio Frye MD Work Phone: 6(332)015-947132 [place] [address] 11-06-2024 16:07-0400 Body mass index (BMI) [Ratio] 23.7 kg/m2 Dr. Inocencio Frye MD Work Phone: 5(606)408-384832 [place] [address] 11-06-2024 16:07-0400 Body weight 62.[address] Inocencio Frye MD Work Phone: 1(896)781-705732 [place] [address] 10-21-2024 10:06-0400 Body height 162.[address] Inocencio Frye MD Work Phone: [facility] 10-21-2024 10:06-0400 Body mass index (BMI) [Ratio] 24.4 kg/m2 Dr. Inocencio Frye MD Work Phone: [facility] 10-21-2024 10:06-0400 Body weight 64.[address] Inocencio Frye MD Work Phone: 2(999)757-477832 [place] [address] 10-21-2024 10:06-0400 Diastolic blood pressure 79 mm[Hg] Dr. Inocencio Frye MD Work Phone: 7(137)298-620460 [address] 10-21-2024 10:06-0400 Systolic blood pressure 138 mm[Hg] Dr. Inocencio Frye MD Work Phone: 0(353)992-484526 [place] [address] 09-09-2024 13:21-0400 Body height 162.[address] Inocencio Frye MD Work Phone: 1(547)191-723826 [place] [address] 09-09-2024 13:21-0400 Body mass index (BMI) [Ratio] 24.2 kg/m2 Dr. Inocencio Frye MD Work Phone: 6(067)780-477360 [address] 09-09-2024 13:21-0400 Body weight 63.[address] Incoencio Frye MD Work Phone: 5(621)046-493732 [place] [address] 09-09-2024 13:21-0400 Diastolic blood pressure 67 mm[Hg] Dr. Inocencio Frye MD Work Phone: 8(318)272-611732 [place] [address] 09-09-2024 13:21-0400 Systolic blood pressure 128 mm[Hg] Dr. Inocencio Frye MD Work Phone: 0(589)617-993032 [place] [address] 08-31-2024 14:02-0400 Body temperature 98.4 [degF] Dr. Inocencio Frye MD Work Phone: 5(951)886-476226 [place] [address] 08-31-2024 14:02-0400 Diastolic blood pressure 70 mm[Hg] Dr. Inocencio Frye MD Work Phone: 9(073)106-711360 [address] 08-31-2024 14:02-0400 Heart rate 93 /min Dr. Inocencio Frye MD Work Phone: [facility] 08-31-2024 14:02-0400 Respiratory rate 16 /min Dr. Inocencio Frye MD Work Phone: [facility] 08-31-2024 14:02-0400 SaO2% (BldA) [Mass fraction] 97 % Dr. Inocencio Frye MD Work Phone: [facility] 08-31-2024 14:02-0400 Systolic blood pressure 134 mm[Hg] Dr. Inocencio Frye MD Work Phone: 8(372)781-109632 [place] [address] 08-31-2024 10:28-0400 SaO2% (BldA) [Mass fraction] 98 % Dr. Inocencio Frye MD Work Phone: 1(387)935-538232 [place] [address] 08-31-2024 10:00-0400 Body temperature 98.8 [degF] Dr. Inocencio Frye MD Work Phone: 2(282)119-767860 [address] 08-31-2024 10:00-0400 Diastolic blood pressure 61 mm[Hg] Dr. Inocencio Frye MD Work Phone: 6(575)278-469760 [address] 08-31-2024 10:00-0400 Heart rate 91 /min Dr. Inocencio Frye MD Work Phone: 9(729)167-008432 [place] [address] 08-31-2024 10:00-0400 Systolic blood pressure 113 mm[Hg] Dr. Inocencio Frye MD Work Phone: 2(911)771-475432 [place] [address] 08-31-2024 03:14-0400 Body mass index (BMI) [Ratio] 25 kg/m2 Dr. Inocencio Frye MD Work Phone: 3(042)783-284732 [place] [address] 08-31-2024 03:14-0400 Body weight [address] Inocencio Frye MD Work Phone: [facility] 08-30-2024 20:12-0400 Body height 162.[address] Inocencio Frye MD Work Phone: 3(908)295-360932 [place] [address] 08-30-2024 19:47-0400 Body temperature 98.2 [degF] Dr. Inocencio Frye MD Work Phone: [facility] 08-30-2024 19:47-0400 Diastolic blood pressure 76 mm[Hg] Dr. Inocencio Frye MD Work Phone: [facility] 08-30-2024 19:47-0400 Heart rate 71 /min Dr. Inocencio Frye MD Work Phone: [facility] 08-30-2024 19:47-0400 Respiratory rate 17 /min Dr. Inocencio Frye MD Work Phone: [facility] 08-30-2024 19:47-0400 SaO2% (BldA) [Mass fraction] 99 % Dr. Inocencio Frye MD Work Phone: [facility] 08-30-2024 19:47-0400 Systolic blood pressure 125 mm[Hg] Dr. Inocencio Frye MD Work Phone: [facility] 08-30-2024 14:29-0400 Body height 162.[address] Inocencio Frye MD Work Phone: [facility] 08-30-2024 14:29-0400 Body mass index (BMI) [Ratio] 25 kg/m2 Dr. Inocencio Frye MD Work Phone: [facility] 08-30-2024 14:29-0400 Body weight 66.[address] Inocencio Frye MD Work Phone: [facility] Encounters Encounter Date Encounter Type Care Provider Facility Start: 01-20-2025 ambulatory Roxanna King Fa cility:[facility] Start: 12-19-2024 End: 12-19-2024 ambulatory Roxanna King Facility:[facility] Start: 12-19-2024 End: 12-19-2024 ambulatory Inocencio Frye Facility:[facility] Start: 11-29-2024 Encounter for other preprocedural examination Roxanna King [facility] Start: 11-21-2024 End: 11-21-[address] Roxanna King DO -[facility] Work Phone: Start: 11-21-2024 End: 11-21-[address] Inocencio Frye MD Work Phone: -[facility] Start: 11-16-2024 End: 11-16-[address] Inocencio Frye MD Work Phone: -[facility] Start: 11-16-2024 End: 11-16-[address] Inocencio Frye MD -[facility] Start: 11-16-2024 End: 11-16-2024 ambulatory Inocencio Frye Facility:[facility] Start: 11-08-2024 ambulatory Roxanna Conrad cility:[facility] Start: 11-08-2024 Non-patient / Non-visit Dr. Luca King DO -[facility] Start: 11-08-2024 End: 11-08-2024 Admission to same [...] Patient encounter procedure Dr. Roxanna King DO -[facility] Work Phone: Start: 10-21-2024 End: 10-21-[address] Inocencio Frye MD Work Phone: -[facility] Start: 10-21-2024 End: 10-21-20[facility] Facility:[facility] Start: 10-19-2024 Encounter for other preprocedural examination Roxannakimberly Castellanos [facility] Start: 10-11-2024 Non-patient / Non-visit Dr. Carmen KLEIN -[facility] Work Phone: Start: 10-11-2024 End: 10-11-[address] Inocencio Frye MD Work Phone: -Pulmonary Services/Neurology Start: 10-11-2024 End: 10-11-[address] Roxanna King DO -Pulmonary Services/Neurology Work Phone: Start: 10-11-2024 End: 10-11-2024 ambulatory [facility] Facility:[facility] Start: 09-09-2024 End: 09-09-[address] Roxanna King DO -Laboratory Specimen Work Phone: Start: 09-09-2024 End: 09-09-[address] Inocencio Frye MD Work Phone: -Laboratory Specimen Start: 09-09-2024 End: 09-09-[address] Roxanna King DO -[facility] Work Phone: Start: 09-09-2024 End: 09-09-[address] Inocencio Frye MD Work Phone: -[facility] Start: 09-06-2024 End: 09-06-[address] Inocencio Frye MD Work Phone: -Laboratory [facility] Start: 09-06-2024 End: 09-06-[address] Inocencio Frye MD -Laboratory [facility] Start: 09-06-2024 End: 09-06-2024 ambulatory Inocencio Frye Facility:[facility] Start: 08-31-2024 Non-patient / Non-visit Dr. Lori Conrad MD -[facility] Work Phone: Start: 08-31-2024 Non-patient / Non-visit Dr. Luca King DO -[facility] Start: 08-30-2024 Non-patient / Non-visit Dr. Johnny Zamora MD -[facility] Work Phone: Start: 08-30-2024 End: 08-31-2024 ambulatory Lori Conrad Facility:[facility] Start: 08-30-2024 End: 08-31-2024 Evaluation and management of inpatient Dr. Johnny Zamora MD -Progressive Care Unit Work Phone: Start: 08-30-2024 End: 08-31-[address] Inocencio Frye MD Work Phone: -[facility] Start: 08-30-2024 End: 08-30-[address] Inocencio Frye MD Work Phone: -Laboratory [facility] Start: 08-30-2024 End: 08-30-[address] Inocencio Frye MD -[facility] Start: 08-30-2024 End: 08-30-2024 ambulatory Inocencio Frye Facility:[facility] Start: 04-28-2024 End: 04-28-[address] Inocencio Frye MD Work Phone: [facility] Work Phone: Start: 04-28-2024 End: 04-28-[address] [facility] Start: 04-28-2024 End: 04-28-2024 ambulatory Inocencio Frye Facility:[facility] Start: 01-19-2024 End: 01-19-2024 Patient encounter procedure Angelica MIRANDA -Outpatient Breast Imaging Work Phone: Start: 01-19-2024 End: 01-19-2024 ambulatory Angelica Olmos NP Facility:[facility] Start: 06-16-2023 End: 06-16-2023 ambulatory [facility] Work Phone: Start: 06-16-2023 End: 06-16-2023 Patient encounter procedure [facility]-Ultrasound, [facility] Work Phone: Start: 06-04-2023 End: 06-04-2023 ambulatory [facility] Work Phone: Start: 06-04-2023 End: 06-04-2023 Patient encounter procedure [facility] Start: 12-23-2022 End: 12-23-2022 ambulatory [facility] Work Phone: Start: 12-23-2022 End: 12-23-2022 Patient encounter procedure [facility]-Ultrasound, [facility] Work Phone: Start: 12-03-2022 End: 12-03-2022 ambulatory [facility] Work Phone: Start: 12-03-2022 End: 12-03-2022 Patient encounter procedure [facility] Start: 05-27-2022 End: 05-27-2022 ambulatory [facility] Work Phone: Start: 05-27-2022 End: 05-27-2022 Patient encounter procedure [facility] Start: 12-11-2021 End: 12-11-2021 ambulatory [facility] Work Phone: Start: 12-11-2021 End: 12-11-2021 Patient encounter procedure [facility]-Outpatient Breast Imaging Start: 05-14-2021 End: 05-14-2021 Patient encounter procedure [facility] Procedures Date Procedure Procedure Detail Performing Clinician [...] Phone: Start: 08-30-[address] Inocecnio Frye MD Work Phone: Start: 08-30-2024 Total [...] abd w/laps nos ANESTH SURG LOWER ABDOMEN [facility] Start: 11-08-2024 Laparoscopy tot hysterectomy >250 g w/tube/ovar TLH W/T/O UTERUS OVER 250 G [facility] Start: 11-08-2024 Patient discharge [facility] Start: 11-08-2024 Ambulation without limitation [facility] Start: 11-08-2024 Medication education [facility] Start: 11-08-2024 Planned voiding [facility] Start: 11-08-2024 Taking patient vital signs [facility] Start: 11-08-2024 Vital signs measurements [facility] Start: 11-08-2024 [facility] Start: 11-07-2024 Following clinical pathway protocol [facility] Start: 11-07-2024 Transfusion of blood product [facility] Start: 11-07-2024 [facility] Start: 11-07-2024 Administration of blood product [facility] Start: 11-07-2024 Leukocyte reduced red blood cells [facility] Start: 11-07-2024 [facility] Start: 11-06-2024 [facility] Start: 10-21-2024 Complete blood count [facility] Start: 08-31-2024 Patient discharge [facility] Start: 08-31-2024 Referral to mri manager and medical anthropologist [facility] Start: 08-30-2024 End: 08-30-2024 Following clinical pathway protocol [facility] Start: 08-30-2024 Transfusion of blood product [facility] Start: 08-30-2024 Ambulation without limitation [facility] Start: 08-30-2024 Assessment of risk of venous thromboembolism [facility] Start: 08-30-2024 Documentation procedure [facility] Start: 08-30-2024 Insertion of catheter into peripheral vein [facility] Start: 08-30-2024 Measuring intake and output [facility] Start: 08-30-2024 Oxygen therapy [facility] Start: 08-30-2024 Providing care according to standard [facility] Start: 08-30-2024 [facility] Start: 08-30-2024 End: 08-30-2024 Admission procedure [facility] Start: 08-30-2024 Hospital admission, emergency, from emergency room, medical nature [facility] Start: 08-30-2024 Administration of blood product [facility] Erythrocyte mean corpuscular volume determination [facility] Hematocrit [Volume Fraction] of Blood [facility] Hemoglobin [Mass/vol ume] in Blood [facility] Iron [Mass/mass] in Unspecified specimen [facility] Iron saturation [Mas s Fraction] in Serum or Plasma [facility] Leukocytes [#/volume ] in Blood [facility] Mean corpuscular hemoglobin concentration determination [facility] Mean corpuscular hemoglobin determination [facility] Patient Education Anemia ED Dysf unctional Uterine Bleeding ED Uterine Fibroids [facility] Work Phone: Platelets [#/volume] in Blood [facility] Red blood cell count [facility] Red cell distributio n width determination [facility] Total iron binding capacity measurement [facility] Immunizations Immunization Date Immunization Notes Care Provider Fa cility 01-21-2019 Flucelvax Quad 2018- 2019 (PF) (flu vac qs 2018(4 yr up)CD(PF)) 60 mcg (15 mcg x [facility] Work Phone: Payers Date Payer Category Payer Self-pay [id number] 2020 Unknown [id number] Self-pay [id number] Unknown [id number] Unknown [id number] Unknown [id number] 2.16.8 40.1.408557.3.579.2.462 Unknown [id number] 2.16.8 40.1.606235.3.579.2.462 Unknown [id number] 2.16.8 40.1.450740.3.579.2.462 Unknown [id number] 2.16.8 40.1.519388.3.579.2.462 Unknown [id number] 2.16.8 40.1.603183.3.579.2.462 Unknown [id number] 2.16.8 40.1.643854.3.579.2.462 Unknown [id number] 2.16.8 40.1.910343.3.579.2.462 Unknown [id number] 2.16.8 40.1.654738.3.579.2.462 Unknown [id number] 2.16.8 40.1.939905.3.579.2.462 Unknown [id number] 2.16.8 40.1.386374.3.579.2.462 Unknown [id number] 2.16.8 40.1.276629.3.579.2.462 Unknown [id number] 2.16.8 40.1.852983.3.579.2.462 Unknown [id number] 2.16.8 40.1.303658.3.579.2.462 Unknown [id number] 2.16.8 40.1.642269.3.579.2.462 Unknown [id number] 2.16.8 40.1.642046.3.579.2.462 Unknown [id number] 2.16.8 40.1.115294.3.579.2.462 Unknown [id number] 2.16.8 40.1.690653.3.579.2.462 Unknown [id number] 2.16.8 40.1.503425.3.579.2.462 Unknown [id number] 2.16.8 40.1.480847.3.579.2.462 Unknown [id number] 2.16.8 40.1.913458.3.579.2.462 Unknown [id number] 2.16.8 40.1.801719.3.579.2.462 Unknown [id number] 2.16.8 40.1.990541.3.579.2.462 Unknown [id number] 2.16.8 40.1.335397.3.579.2.462 Social History Date Type Detail Facility Start: 01-21-2019 End: 01-21-2019 Tobacco smoking status NHIS Unknown if ever smoked [facility] Start: 1980 Sex Assigned At Female W [facility] Start: 01-21-2019 End: 08-30-2024 Tobacco smoking status NHIS Never smoked tobacco (finding) [facility] Start: 05-10-2024 Sex Female (finding) [facility] Start: 10-25-2024 End: 11-06-2024 Tobacco smoking status NHIS Ex-smoker (finding) [facility] Sex Female [facility] Goals Date Patient Goal Desired Activity /State Functional Status Date Assessment Result Facility 08-31-2024 Functional status Up ad narda [facility] Work Phone: Mental Status Date Assessment Result Facility 11-08-2024 Cognitive function Voice/Name [facility] Work Phone: 11-06-2024 Cognitive function Level Of Cons ciousness Awake;Alert;Appropriate;Follow s Commands [facility] Work Phone: 08-31-2024 Cognitive function Voice/Name [facility] Work Phone: 08-30-2024 Cognitive function Level Of Cons ciousness Awake;Alert;Appropriate;Follow s Commands [facility] Work Phone: Clinical Notes 08-30-2024 to 11-21-2024 Note Date & Type Note Facility 11-21-2024 Progress note [facility] 11-08-2024 Consult note [facility] 11-08-2024 Consult note Note Date/Time November 08, 2024 12:27pm [facility] Medical Records Department [address] [address] Anesthesia Postop Eval I 11/08/24 1226 MR#: [id number] Acct: [id number] Name: GALINDO JOHNSTON JERMAINE Rep #:[id number] : 1980 44 From: Steven GARNER PCP: Dr. Inocencio Frye MD Status:NII CRUZ Y Race: C Location: [place] [address] Anesthesia: Postop Eval I Current Vital Signs [...] CRNA Cosigner Signature: Date CC: ~ Signed [facility] Work Phone: 1(112) 741-911309-16-2025 Consult note [facility] Medical Records Department [address] [place] [address] Anesthesia Postop Eval I 11/08/246 MR#: [id number] Acct: [id number] Name: GALINDO JOHNSTON Rep #:[id number] : 1980 44 From: Steven GARNER PCP: Dr. Inocencio Frye MD Status:NII Sebastian Race: C Location: [place] [address] Anesthesia: Postop Eval I Current Vital Signs Temperature: 97.7 F Pulse Rate: 90 Blood Pressure: 112/80 Respiratory Rate: 14 Pulse Ox: 97 Assessment Airway patent: Yes Spontaneous unlabored respirations: Yes nausea: No Vomiting: No Anesthesia Complication: No Fluid Hydration Crystalloid volume administer (ml): 1,400 Total IV fluid infused: 1,400 Progress Note Anesthesia document: Postop Eval 1 completed: Yes 11/08/24 1227 PRE CODER> Date _ Steven Escobar PRE CODER Cosigner Signature: Date CC: ~ Signed [facility]09-16-2025 Procedure note [facility] Medical Records Department [address] [place] [address] Operative Report 11/08/24 1209 MR#: [id number] Acct: [id number] Name: GALINDO JOHNSTON Rep #:[id number] : 1980 44 From: Roxanna King DO PCP: Dr. Inocencio Frye MD Status:[facility] Location: [place] [address] Problems Associated Problem List Diagnoses (1) Anemia: (2) Fibroid uterus: (3) Menorrhagia: Multi Select Codes Urinary/Genital Urinary/Genital CPT Codes: 42152 Cystoscopy and 35402 TLH+BS/O >250gr uterus Operative Report (Standard) Operative Information Date of Procedure: 11/08/24 Pre-Operative Diagnosis: menorrhagia, acute blood loss anemia, fibroid uterus Post-Operative Diagnosis: menorrhagia, acute blood loss anemia, fibroid uterus Surgery/Procedure Performed: total robotic hysterectomy, bilateral salpingectomy, cystoscopy creative consultant: Yes Director Supply Chain: Anna Aldrich Tasks completed by commercial lending assistant: Closing, Trocar and Other (suction irrigation )Additional sales assistant institutional sales?: No Type of Anesthesia: General RN Documented [...] Next a left upper quadrant 8 mm sales assistant institutional sales port site was placed. The patient was [...] King DO; Dr. Inocencio Frye MD~ Signed [facility]09-16-2025 Consult note Author Kana Lopez [facility] Note Date/Time November 08, 2024 10:01am [facility] Medical Records Department [address] [place] [address] Pre-Anesthesia Evaluation 11/08/24 0949 MR#: [id number] Acct: [id number] Name: GALINDO JOHNSTON Rep #:[id number] : 1980 44 From: Kana Lopez MD PCP: Dr. Inocencio Frye MD Status:RE G SD Y Race: C Location: [place] [address] ASA Classification* ASA Classification ASA Classification: 2 [...] salpingectomy, cystoscopy. 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 Hx Respiratory Tract Infection No 10/25/24 09:05 STOP Sleep Apnea STOP Sleep Apnea - 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: STOP Sleep Apnea - 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 Hx Hypertension No 10/25/24 09:05 Hx Sleep [...] Tobacco Use History Tobacco Use 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: Tobacco Use 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 Tobacco Use Smoking Status Former smoker 11/06/24 16:46 Hx Tobacco Use No 10/25/24 09:05 Years Smoking Packs Smoked per Day Smoking Cessation Date was Yes - quit smoking within 15 10/25/24 09:05 within the last 15 years years Hx Smoking Cessation Date Hx Smoking Cessation No 10/25/24 09:05 Counseling Hematologic Medial History 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 Hx of Blood Transfusion Yes 10/25/24 09:05 [...] confused, unrespo /Reproduction History /Reproductive 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: /Reproductive Hx- 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 Hx Now Gestational Age (in weeks): EDC: [...] mls @ 70 mls/hr 11/08/24 10:15 IV .[id number] JO-ANN Magnesium Sulfate 1 gm/ 102 mls [...] MD Cosigner Signature: Date CC: ~ Signed [facility] Work Phone: 1(536) 577-985609-16-2025 Discharge summary Author Roxanna Thurman [facility] Note Date/Time November 08, 2024 9:49am [facility] Medical Records Department [address] [place] [address] Instructions for Home/Discharge Instructions 11/08/24 0940 MR#: [id number] Acct: [id number] Name: GALINDO JOHNSTON Rep #:[id number] : 1980 44 From: Roxanna King DO PCP: Dr. Inocencio Frye MD Status:RE [...] Primary Care Provider: Inocencio Frye Print Language: [place] Discharge Orders/Prescriptions Prescriptions: New ibuprofen 800 mg [...] 30 0RF Referrals / Follow Up: Inocencio rFye MD [Primary Care Provider] - Disposition Disposition (needs filled in before D/C Order can be placed): Home, Self Care 11/08/24 0949<Electronically signed by Roxanna King DO>Roxanna King DO CC: Dr. Inocencio Frye MD ~ Signed [facility] Work Phone: 1(885) 613-855709-16-2025 History and physical note Author Roxanna [facility] Note Date/Time November 08, 2024 9:26am [facility] Medical Records Department [address] [place] [address] History & Physical Exam 11/08/24 0924 MR#: [id number] Acct: [id number] Name: GALINDO JOHNSTON Rep #:[id number] : 1980 44 From: Roxanna King DO PCP: Dr. Inocencio Frye MD Status: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 Back on August [...] King DO; Dr. Inocencio Frye MD~ Signed [facility] Work Phone: 1(944) 683-452209-16-2025 Consult note [facility] Medical Records Department [address] [place] [address] Pre-Anesthesia Evaluation 11/08/2449 MR#: [id number] Acct: [id number] Name: GALINDO JOHNSTON Rep #:[id number] : 1980 44 From: Kana Lopez MD PCP: Dr. Inocencio Frye MD Status:[facility] Y Race: C Location: [place] [address] ASA Classification* ASA Classification ASA Classification: 2 [...] salpingectomy, cystoscopy. 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 Hx Respiratory Tract Infection No 10/25/24 09:05 STOP Sleep Apnea STOP Sleep Apnea - 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: STOP Sleep Apnea - 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 Hx Hypertension No 10/25/24 09:05 Hx Sleep [...] Tobacco Use History Tobacco Use 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: 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 Use 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 Tobacco Use Smoking Status Former smoker 11/06/24 16:46 Hx Tobacco Use No 10/25/24 09:05 Years Smoking Packs Smoked per Day Smoking Cessation Date was Yes - quit smoking within 15 10/25/24 09:05 within the last 15 years years Hx Smoking Cessation Date Hx Smoking Cessation No 10/25/24 09:05 Counseling Hematologic Medial History 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 Hx of Blood Transfusion Yes 10/25/24 09:05 [...] confused, unrespo /Reproduction History /Reproductive 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 Inocencio Frye MD Status:RE [...] Provider: Roxanna King Primary Care Provider: Inocencio rFye Instructions Print Language: [place] Discharge Orders/Prescriptions Prescriptions: New ibuprofen 800 mg [...] CC: Dr. Inocencio Frye MD ~ Signed [facility]09-16-2025 History and physical note [facility] Medical Records Department [address] [place] [address] History & Physical Exam 11/08/24923 MR#: [id number] Acct: [id number] Name: GALINDO JOHNSTON Rep #:[id number] : 1980 44 From: Roxanna King DO PCP: Dr. Inocencio Frye MD Status: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 Back on August [...] King DO; Dr. Inocencio Frye MD~ Signed [facility]09-16-2025 [facility] Medical Records Department [address] [place] [address] History Physical Exam 11/08/24923 MR#: [id number] Acct: [id number] Name: GALINDO JOHNSTON Rep #: [id number] : 1980 44 From: Roxanna King DO PCP: Dr. 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 Back on August [...] proceed. ACOG/uptodate references gi (more content not included)...[facility]09-14-2025 [facility] [address] [place] [address] Emergency Department Summary 11/06/24 MR#: [id number] Acct: [id number] Name: GALINDO JOHNSTON Rep #:[id number] : [...] 82.3 H Lymph % (Auto) 8.5 L [place] % (Auto) 7.9 Eos % (Auto) 0.1 [...] [Med Staff - Active Staff] - Keep Oj-Ann appointment Activity Restrictions/Additional Instructions: Increase your Megestrol to 40 mg twice a day. If you have heavier bleeding just return to the emergency department. Prior to your surgery on Thursday or there we will recheck a blood count. Will make a decision at that time whether to do the surgery and transfuse you blood. Or if need be cancel the surgery. Print Language: St Helenian Disposition Disposition: Home, Self Care What to do if you have Problems For any increased pain, shortness of breath, bleeding, nausea or vomiting, chestpain, or any unexpected problems, contact your Primary Care Provider. Call [employer] [facility] ([phone]) or report tothe closest Emergency Room. Call 911 if necessary. 11/06/24 1066 Cosigner Signature (if applicable): CC: Dr. Inocencio Frye MD ~ Signed [facility]09-14-2025 Discharge summary Author Marvel Corley [facility] Note Date/Time November 06, 2024 5:58pm [facility] [address] [place] [address] Emergency Department Summary 11/06/24 MR#: [id number] Acct: [id number] Name: GALINDO JOHNSTON Rep #:[id number] : [...] 20 mg tablet 20 mg PO DAILY [employer] 08/30/24 Unknown History ferrous gluconate 324 [...] Cody. To discuss a plan. Dr. Olive Mckineny and I discussed the patient's case. Patient [...] 82.3 H Lymph % (Auto) 8.5 L [place] % (Auto) 7.9 Eos % (Auto) 0.1 [...] need be cancel the surgery. Print Language: [place] Disposition Disposition: Home, Self Care What to do if you have Problems For any increased pain, shortness of breath, bleeding, nausea or vomiting, chestpain, or any unexpected problems, contact your Primary Care Provider. Call [employer] [facility] ([phone]) or report to the closest Emergency Room. Call 911 if necessary. 11/06/24 3148 <Electronically signed by Marvel Corley MD> Cosigner Signature (if applicable): CC: Dr. Inocencio Frye MD ~ Signed [facility] Work Phone: 1(449) 284-431907-09-2025 Discharge summary [facility] Department [address] [place] [address] Instructions for Home/Discharge Instructions 08/31/24 1253 MR#: [id number] Acct: [id number] Name: GALINDO JOHNSTON Rep #:[id number] : 1980 44 From: Lori Conrad MD PCP: Dr. Inocencio Frye MD Status:AD M ROMINA Discharge Instructions Diet Discharge Diet: No restrictions DC O2, CPAP, BIPAP needs Home O2 Discharge instructions: No Dressing / Incision Discharge Activity: Return to Normal Activity May resume sexual activity in: - (Please defer sexual intercourse until cleared per Railroad Yard Worker at follow-up.) Weight Bearing Status: Weight bearing [...] Instructions / Restrictions: ADDITIONAL INSTRUCTIONS/PLAN OF CARE: --water treatment plant operator would like you to continue medroxyprogesterone [...] medication. It sometimes can cause constipation therefore mfpu-nlk-zcjygrs stool softeners may be used aswell. --Please have follow-up complete blood count at follow-up with your primary carephysician as noted. --water treatment plant operator office will contact you to arrange visit so that you also may have biopsy arranged as wellas plan for upcoming robotic hysterectomy. --If at any point you have onset of heavy bleeding please immediately contact the water treatment plant operator office. Discharge Orders/Prescriptions Prescriptions: New medroxyprogesterone 5 mg tablet 5 mg PO DAILY 30 Days Qty: 30 0RF Rx Instructions: Agriculture Department Chair would like you to call them when [...] [Med Staff - Active Staff] - (The Agriculture Department Chair office will contact you with a visit.) Disposition Disposition (needs filled in before D/C Order can be placed): Home, Self Care 08/31/24 1253Aericka Conrad MD CC: Dr. Roxanna King DO; Dr. Inocencio Frye MD; Dr. Johnny aZmora MD ~ Signed [facility]07-09-2025 Consult note [facility] [address] [place] [address] Consultation - PRINTER SLOTTER OPERATOR 08/31/24 0802 MR#: [id number] Acct: [id number] Name: GALINDO JOHNSTON Rep #:[id number] : 1980 44 From: Roaxnna King DO PCP: Dr. Inocencio Frye MD Status:AD M ROMINA Location: [place] [address] Assessment & Plan (1) Menorrhagia, premenopausal: (2) [...] P 2 (2 sections) who presents to [facility] for iron deficiency anemia. She states that [...] past: none Was seeing Dr. Chandra at [facility] until 2021 Last pap: 2021 - [...] % (Auto) 61.1, Lymph % (Auto) 22.6, [place] % (Auto) 12.7 H, Eos % (Auto) [...] % (Auto) 67.1, Lymph % (Auto) 16.0L, [place] % (Auto) 13.8 H, Eos % (Auto) 1.7, Baso % (Auto) 1.2 H,Absolute Neuts (auto) 2.8, Absolute Lymphs (auto) 0.66 L, Nucleated RBC % 0 Micro: Microbiology 08/30/24 15:46 Stool Stool Occult Blood (MOJGAN) - Final Charges/Coding Visit Charges Inpatient E&M: 87164 Init Hosp L3 08/31/24 1314 Cosigner Signature (if applicable): CC: Dr. Inocencio Frye MD~ Signed [facility]07-09-2025 Discharge summary [facility] Medical [facility] Department [address] [place] [address] Discharge Summary 08/31/24 1254 MR#: [id number] Acct: [id number] Name: GALINDO JOHNSTON Rep #:[id number] : 1980 44 From: Lori Conrad MD PCP: Dr. Inocencio Frye MD Status:AD [facility] Location: [place] [address] Providers Date of Admission: 08/30/24 Date of Discharge: 08/31/24 Primary Care Physician: Dr. Inocencio Frye MD Consultations 08/31/24 07:06 Consult: PRINTER SLOTTER OPERATOR Routine Consulting Provider: Roxanna King Reason for [...] tobacco use, RLS who presents to the [facility] ED on 08/30/2024 secondary to recently performed [...] 6.7 cm x 6.5 cm subendometrial fibroid. water treatment plant operator was consulted and discussed case at [...] 10 mg however would be arranged via Agriculture Department Chair discussion inaddition to plan follow-up which Agriculture Department Chair office would arrange for planned biopsy andfuture [...] % (Auto) 61.1, Lymph % (Auto) 22.6, [place] % (Auto) 12.7 H, Eos % (Auto) [...] % (Auto) 67.1, Lymph % (Auto) 16.0L, [place] % (Auto) 13.8 H, Eos % (Auto) [...] cm 6.5 cm subendometrial fibroid. Reading Location: [place] [address] D/C Instructions Discharge Diet: No restrictions May resume sexual activity in: - (Please defer sexual intercourse until cleared per Railroad Yard Worker at follow-up.) Weight Bearing Status: Weight bearing [...] Instructions / Restrictions: ADDITIONAL INSTRUCTIONS/PLAN OF CARE: --water treatment plant operator would like you to continue medroxyprogesterone [...] medication. It sometimes can cause constipation therefore xvnp-quc-fwbvwcy stool softeners may be used aswell. --Please have follow-up complete blood count at follow-up with your primary carephysician as noted. --water treatment plant operator office will contact you to arrange visit so that you also may have biopsy arranged as wellas plan for upcoming robotic hysterectomy. --If at any point you have onset of heavy bleeding please immediately contact the water treatment plant operator office. Discharge Orders/Prescriptions Prescriptions: New medroxyprogesterone 5 mg tablet 5 mg PO DAILY 30 Days Qty: 30 0RF Rx Instructions: Agriculture Department Chair would like you to call them when [...] [Med Staff - Active Staff] - (The Agriculture Department Chair office will contact you with a visit.) Disposition Disposition (needs filled in before D/C Order can be placed): Home, Self Care Charges/Coding Visit Charges Inpatient E&M: 33619 Disch Hosp >30min 08/31/24 1300 Cosigner Signature (if applicable): CC: Dr. Lori Conrad MD; Dr. Inocencio Frye MD~ Signed [facility]07-09-2025 [facility] Medical Records Department [address] [place] [address] Discharge Summary 08/31/24 1254 MR#: [id number] Acct: [id number] Name: GALINDO JOHNSTON Rep #: [id number] : 1980 44 From: Lori Conrad MD PCP: Dr. Inocencio Frye MD Status:ADM ROMINA Location: [place] [address] Providers Date of Admission: 08/30/24 Date of Discharge: 08/31/24 Primary Care Physician: Dr. Inocencio Frye MD Consultations 08/31/24 07:06 Consult: PRINTER SLOTTER OPERATOR Routine Consulting Provider: Roxanna King Reason for [...] tobacco use, RLS who presents to the [facility] ED on 08/30/2024 secondary to recently performed [...] 6.7 cm x 6.5 cm subendometrial fibroid. water treatment plant operator was consulted and discussed case at [...] 10 mg however would be arranged via Agriculture Department Chair discussion in addition to plan follow-up which Agriculture Department Chair office would arrange for planned biopsy and [...] cranial nerves II-XII gr (more content not included)...[facility]07-09-2025 Radiology Diagnostic study note [facility] Imaging Services [facility] [address] [place], [place] [id number] Transvaginal Non- MR#: [id number] Acct: [id number] Name: GALINDO JOHNSTON Rep #: [id number] : 1980 F 44 From: Jose A Stanton MD PCP: Dr. Inocencio Frye MD Status: AD M ROMINA Study:Transvaginal Non- Date of Exam: 08/31/24 Exam# [id number] Ordering Dr: Radha Conrad MD PROCEDURE: TRANSVAGINAL [...] cm 6.5 cm subendometrial fibroid. Reading Location: [facility] CC: Dr. Lori Conrad MD; Dr. Inocencio Frye MD ~ Manual Arts Therapist: Signed [facility]07-09-2025 Consult note Author Roxanna Thurman [facility] Note Date/Time August 31, 2024 1:14p m [facility] Medical Records Department [address] [place] [address] Consultation - PRINTER SLOTTER OPERATOR 08/31/24 0802 MR#: [id number] Acct: [id number] Name: GALINDO JOHNSTON Rep #:[id number] : 1980 44 From: Roxanna King DO PCP: Dr. Inocencio Frey MD Status:CHER Pinto ROMINA Location: [place] [address] Assessment & Plan (1) Menorrhagia, premenopausal: (2) [...] P 2 (2 sections) who presents to [facility] for iron deficiency anemia. She states that [...] past: none Was seeing Dr. Chandra at [facility] until 2021 Last pap: 2021 - [...] % (Auto) 61.1, Lymph % (Auto) 22.6, [place] % (Auto) 12.7 H, Eos % (Auto) [...] % (Auto) 67.1, Lymph % (Auto) 16.0L, [place] % (Auto) 13.8 H, Eos % (Auto) 1.7, Baso % (Auto) 1.2 H, Absolute Neuts (auto) 2.8, Absolute Lymphs (auto) 0.66 L, Nucleated RBC % 0 Micro: Microbiology 08/30/24 15:46 Stool Stool Occult Blood (MOJGAN) - Final Charges/Coding Visit Charges Inpatient E&M: 00268 Init Hosp L3 08/31/24 1314 <Electronically signed by Roxanna King DO> Cosigner Signature (if applicable): CC: Dr. Inocencio Frye MD~ Signed [facility] Work Phone: 1(911) 717-569707-08-2025 History and physical note Author Johnny Zamora [facility] Note Date/Time August 30, 2024 8:08p [facility] Medical Records Department [address] [place] [address] H&P Exam - Hospitalist 08/30/24 1852 MR#: [id number] Acct: [id number] Name: GALINDO JOHNSTON Rep #:[id number] : 1980 44 From: Johnny Soto PCP: Dr. Inocencio Frye MD Status:CHER VANEGAS Location: [place] [address] HPI - General General Date of Admission: [...] on vitals including heart rate became normal [facility] Medical History Anxiety Former smoker Medical [...] % (Auto) 61.1, Lymph % (Auto) 22.6, [place] % (Auto) 12.7 H, Eos % (Auto) [...] a.m. Monitor vitals. She recently has changed SPIRAL SPRING WINDER to Dr. Mckinney but has not seen her yet. Her previous SPIRAL SPRING WINDER wanted to put on hormonal pills but [...] kin. She does nothave designated power of commonwealth attorney for health. After discussion of benefits/risks procedures involved with full code, DNR CC arrest and DNR CC, the patient opted for full code. Patient does want artificial life support including intubation, tube feed, ventilator and/chest compression, central venous catheter, vasopressor and DC shock if needed Total time spent in bodh-xw-szmu encounter in discussion of advanced directive 17 [...] % (Auto) 61.1, Lymph % (Auto) 22.6, [place] % (Auto) 12.7 H, Eos % (Auto) [...] See Detail Charges/Coding Visit Charges Inpatient E&M: 59401 Init Hosp L3 Procedures Hospitalists Procedures: 71992 Advncd Care Plan 30 Min 08/30/242007 <Electronically signed by Johnny Zamora MD> Cosigner Signature (if applicable): CC: Dr. Inocencio Frye MD; Dr. Johnny Zamora MD~ Signed [facility] Work Phone: 1(339) 135-750107-08-2025 Discharge summary Author Joselito Maldonado [facility] Note Date/Time August 30, 2024 7:03p [facility] Medical Records Department [address] [place] [address] Emergency Department Summary 08/30/24 MR#: [id number] Acct: [id number] Name: GALINDO JOHNSTON Rep #:[id number] : [...] % (Auto) 61.1 Lymph % (Auto) 22.6 [place] % (Auto) 12.7 H Eos % (Auto) [...] MD [Primary Care Provider] - Print Language: [place]ian What to do if you have Problems For any increased pain, shortness of breath, bleeding, nausea or vomiting, chestpain, or any unexpected problems, contact your Primary Care Provider. Call [facility] ([phone]) or report to the closest Emergency Room. Call 911 if necessary. 08/30/241902 <Electronically signed by Joselito Maldonado DO> Cosigner Signature (if applicable): CC: Dr. Inocencio Frye MD ~ Signed [facility] Work Phone: 1(901) 287-109807-08-2025 Evaluation note* Diagnosis Onset Date Resolution Status Admit Date Acute blood loss anemia acute J isaiah 2024 6:51pm Menorrhagia, premenopausal acute August 30, 2024 6:51pm Iron deficiency anemia chronic Ju ly 2024 6:51pm [facility] Work Phone: 1(258) 138-872707-08-2025 Evaluation note* Diagnosis Onset Date Resolution Status Admit Date Acute blood loss anemia resolved J isaiah2024 6:51pm Iron deficiency anemia inactive Ju ly 2024 6:51pm Menorrhagia, premenopausal inactive August 30, 2024 6:51pm Fibroid uterus acute September 09, 2024 1:10pm Menorrhagia acute September 09 1:10pm [facility] Work Phone: 1(481) 288-653107-08-2025 Evaluation note* Diagnosis Onset Date Resolution Status Admit Date Acute blood loss anemia resolved isaiah2024 6:51pm Iron deficiency anemia inactive Ju ly 2024 6:51pm Menorrhagia, premenopausal inactive August 30, 2024 6:51pm Fibroid uterus acute September 09, 2024 1:10pm Menorrhagia acute September 09 1:10pm Fibroid uterus acute September 10:02am Menorrhagia acute October 21, 2024 10:02am [facility] Work Phone: 1([phone]) 623-607807-08-2025 Evaluation note* Diagnosis Onset Date Resolution Status [...] 08, 2024 8:02am Menorrhagia acute October 8:02am [facility] Work Phone: 1(654) 911-920507-08-2025 Evaluation note* Diagnosis Onset Date Resolution Status [...] post hysterectomy acute November 21, 2024 10:52am [facility] Work Phone: 1([phone]) 440-645207-08-2025 History and physical note [facility] Medical Records Department [address] [place] [address] H&P Exam - Hospitalist 08/30/24 1852 MR#: [id number] Acct: [id number] Name: GALINDO JOHNSTON Rep #:[id number] : 1980 44 From: Johnny Soto PCP: Dr. Inocencio Frye MD Status:CHER VANEGAS Location: [place] [address] HPI - General General Date of Admission: [...] on vitals including heart rate became normal [facility] Medical History Anxiety Former smoker Medical [...] % (Auto) 61.1, Lymph % (Auto) 22.6, [place] % (Auto) 12.7 H, Eos % (Auto) [...] a.m. Monitor vitals. She recently has changed SPIRAL SPRING WINDER to Dr. Mckinney but has not seen her yet. Her previous SPIRAL SPRING WINDER wanted to put on hormonal pills but [...] kin. She does nothave designated power of commonwealth attorney for health. After discussion of benefits/risks procedures involved with full code, DNR CC arrest and DNR CC, the patient opted for full code. Patient does want artificial life support including intubation, tube feed, ventilator and/chest compression, central venous catheter, vasopressor and DC shock if needed Total time spent in xpcf-jd-wjcv encounter in discussion of advanced directive 17 [...] % (Auto) 61.1, Lymph % (Auto) 22.6, [place] % (Auto) 12.7 H, Eos % (Auto) [...] See Detail Charges/Coding Visit Charges Inpatient E&M: 13100 Init Hosp L3 Procedures Hospitalists Procedures: 42903 Advncd Care Plan 30 Min 08/30/242007 Cosigner Signature (if applicable): CC: Dr. Inocencio Frye MD; Dr. Johnny Zamora MD~ Signed [facility]07-08-2025 Discharge summary [facility] Medical [facility] Department [address] [place] [address] Emergency Department Summary 08/30/24 MR#: [id number] Acct: [id number] Name: GALINDO JOHNSTON Rep #:[id number] : [...] % (Auto) 61.1 Lymph % (Auto) 22.6 [place] % (Auto) 12.7 H Eos % (Auto) [...] MD [Primary Care Provider] - Print Language: [place] What to do if you have Problems For any increased pain, shortness of breath, bleeding, nausea or vomiting, chestpain, or any unexpected problems, contact your Primary Care Provider. Call [facility] ([phone]) or report tothe closest Emergency Room. Call 911 if necessary. 08/30/24 1903 Cosigner Signature (if applicable): CC: Dr. Inocencio Frye MD ~ Signed [facility]07-08-2025 Discharge summary [facility] Note Date/Time August 30, 2024 7:03p m [facility] Medical Records Department [address] [place] [address] Emergency Department Summary 08/30/24 MR#: [id number] Acct: [id number] Name: GALINDO JOHNSTON Rep #:[id number] : [...] % (Auto) 61.1 Lymph % (Auto) 22.6 [place] % (Auto) 12.7 H Eos % (Auto) [...] MD [Primary Care Provider] - Print Language: [place] What to do if you have Problems For any increased pain, shortness of breath, bleeding, nausea or vomiting, chestpain, or any unexpected problems, contact your Primary Care Provider. Call [facility] ([phone]) or report to the closest Emergency Room. Call 911 if necessary. 08/30/241902 <Electronically signed by Joselito Maldonado DO> Cosigner Signature (if applicable): CC: Dr. Inocencio Frye MD ~ Signed [facility] Work Phone: Consult note Author Veronica Morales [facility] Note Date/Time November 08, 2024 3:14pm [facility] Medical Records Department [address] [place] [address] Anesthesia Postop Eval II 11/08/24 1513 MR#: [id number] Acct: [id number] Name: GALINDO JOHNSTON Rep #:[id number] : 1980 44 From: Veronica chin PRE CODER PCP: Dr. Inocencio Frye MD Status:RE G SDC Y Race: C Location: [address] Anesthesia Postop Eval I Sum Postop Eval Completion status Anesthesia document: Postop Eval 1 completed: Yes Anesthesia Postop Eval I Summary Anesthesia Postop Eval I Summary: Anesthesia Postop Eval I: Assessment Summary Airway patent Yes 11/08/24 12:26 PRE CODER.RWOO Spontaneous unlabored Yes 11/08/24 12:26 PRE CODER.RWOO respirations Mental status nausea No 11/08/24 12:26 PRE CODER.RWOO Vomiting No 11/08/24 12:26 PRE CODER.RWANNELISE Anesthesia Postop Eval I: Fluid Summary Crystalloid volume administer 1,400 11/08/24 12:26 PRE CODER.RWOO (ml) Colloids volume administered ( ml) Blood Product volume administered (ml) Total IV fluid infused 1,400 11/08/24 12:26 PRE CODER.RWANNELISE Anesthesia Postop Eval I: Summary Notes Anesthesia Complication No 11/08/24 12:26 PRE CODER.RWOO Anesthesia Complication Comment: Post-operative progress note Anesthesia: Postop Eval II Evaluation Mental status: Awake and Calm Pain Level: 2 nausea: No Vomiting: No Complications Anesthesia Complication: No 11/08/24 1514 <Electronically signed by Veronica moya CRNA> Date _ Veronica Morales CRNA Cosigner Signature: Date CC: ~ Signed [facility] Work Phone: Discharge summary Author [facility] Note Date/Time August 31, 2024 1:57p m [facility] Medical Records Department [address] [place] [address] Instructions for Home/Discharge Instructions 08/31/24 1253 MR#: [id number] Acct: [id number] Name: GALINDO JOHNSTON Rep #:[id number] : 1980 44 From: Lori Conrad MD PCP: Dr. Inocencio Frye MD Status:CHER VANEGAS Discharge Instructions Diet Discharge Diet: No restrictions DC O2, CPAP, BIPAP needs Home O2 Discharge instructions: No Dressing / Incision Discharge Activity: Return to Normal Activity May resume sexual activity in: - (Please defer sexual intercourse until cleared per Railroad Yard Worker at follow-up.) Weight Bearing Status: Weight bearing [...] Instructions / Restrictions: ADDITIONAL INSTRUCTIONS/PLAN OF CARE: --water treatment plant operator would like you to continue medroxyprogesterone [...] medication. It sometimes can cause constipation therefore vbnp-ict-zifpplt stool softeners may be used aswell. --Please have follow-up complete blood count at follow-up with your primary carephysician as noted. --water treatment plant operator office will contact you to arrange visit so that you also may have biopsy arranged as well as plan for upcoming robotic hysterectomy. --If at any point you have onset of heavy bleeding please immediately contact the water treatment plant operator office. Discharge Orders/Prescriptions Prescriptions: New medroxyprogesterone 5 mg tablet 5 mg PO DAILY 30 Days Qty: 30 0RF Rx Instructions: Agriculture Department Chair would like you to call them when [...] complete blood count assessment.) Roxanna King DO [[facility] Staff - Active Staff] - (The Agriculture Department Chair office will contact you with a visit.) Disposition Disposition (needs filled in before D/C Order can be placed): Home, Self Care 08/31/24 1253<Electronically signed by Lori Conrad MD>Lori Conrad MD CC: Dr. Roxanna King DO; Dr. Inocencio Frye MD; Dr. Johnny Zamora MD ~ Signed [facility] Work Phone: Discharge summary Author Lori Conrad [facility] Note Date/Time August 31, 2024 1:00p m [facility] Medical Records Department [address] [place] [address] Discharge Summary 08/31/24 1254 MR#: [id number] Acct: [id number] Name: GALINDO JOHNSTON Rep #:[id number] : 1980 44 From: Lori Conrad MD PCP: Dr. Inocencio Frye MD Status[facility] Location: [place] [address] Providers Date of Admission: 08/30/24 Date of Discharge: 08/31/24 Primary Care Physician: Dr. Inocencio Frye MD Consultations 08/31/24 07:06 Consult: PRINTER SLOTTER OPERATOR Routine Consulting Provider: Roxanna King Reason for [...] tobacco use, RLS who presents to the [facility] ED on 08/30/2024 secondary to recently performed [...] 6.7 cm x 6.5 cm subendometrial fibroid. water treatment plant operator was consulted and discussed case at [...] 10 mg however would be arranged via Agriculture Department Chair discussion in addition to plan follow-up which Agriculture Department Chair office would arrange for planned biopsy andfuture [...] % (Auto) 61.1, Lymph % (Auto) 22.6, [place] % (Auto) 12.7 H, Eos % (Auto) [...] % (Auto) 67.1, Lymph % (Auto) 16.0L, [place] % (Auto) 13.8 H, Eos % (Auto) [...] cm 6.5 cm subendometrial fibroid. Reading Location: [facility] D/C Instructions Discharge Diet: No restrictions May resume sexual activity in: - (Please defer sexual intercourse until cleared per Railroad Yard Worker at follow-up.) Weight Bearing Status: Weight bearing [...] Instructions / Restrictions: ADDITIONAL INSTRUCTIONS/PLAN OF CARE: --water treatment plant operator would like you to continue medroxyprogesterone [...] medication. It sometimes can cause constipation therefore cuyg-lzc-kcobzim stool softeners may be used aswell. --Please have follow-up complete blood count at follow-up with your primary carephysician as noted. --water treatment plant operator office will contact you to arrange visit so that you also may have biopsy arranged as well as plan for upcoming robotic hysterectomy. --If at any point you have onset of heavy bleeding please immediately contact the water treatment plant operator office. Discharge Orders/Prescriptions Prescriptions: New medroxyprogesterone 5 mg tablet 5 mg PO DAILY 30 Days Qty: 30 0RF Rx Instructions: [employer] Department Chair would like you to call them when [...] [Med Staff - Active Staff] - (The Agriculture Department Chair office will contact you with a visit.) Disposition Disposition (needs filled in before D/C Order can be placed): Home, Self Care Charges/Coding Visit Charges Inpatient E&M: 31254 Disch Hosp >30min 08/31/24 1300 <Electronically signed by Lori Conrad MD> Cosigner Signature (if applicable): CC: Dr. Lori Conrad MD; Dr. Inocencio Frye MD~ Signed [facility] Work Phone: Evaluation noteNo assessment information available [facility] Work Phone: Hospital Discharge instructionsAdditional Instructions ADDITIONAL INSTRUCTIONS/PLAN OF CARE: --water treatment plant operator would like you to continue medroxyprogesterone [...] medication. It sometimes can cause constipation therefore gyaf-kmq-ftnzqtc stool softeners may be used as well. --Please have follow-up complete blood count at follow-up with your primary care physician as noted. --water treatment plant operator office will contact you to arrange visit so that you also may have biopsy arranged as well as plan for upcoming robotic hysterectomy. --If at any point you have onset of heavy bleeding please immediately contact the water treatment plant operator office. [facility]: [facility]: Hospital Discharge instructionsAdditional Instructions Increase your Megestrol to 40 mg twice a day. If you have heavier bleeding just return to the emergency department. Prior to your surgery on Thursday or there we will recheck a blood count. Will make a decision at that time whether to do the surgery and transfuse you blood. Or if need be cancel the surgery.[facility] Work Phone: Progress note Author Roxanna Thurman [facility] Note Date/Time November 21, 2024 12:13pm [facility] [address] [place] [address], [address] [place] [address] OFFICE VISIT Date of Service: 11/21/24 MR#: [id number] Acct: [id number] Name: GALINDO JOHNSTON Rep #: [id number] : 1980 Provider: Dr. Teri King, Age/Sex: 44/F Location: [facility] Status: Signed Intake Vital Signs 09/09/24 13:21 11/08/24 09:00 11/21/24 10:59 11/21/24 10:59 Height 5 ft 4 in 5 ft 4 in 5 ft 4 in 5 ft 4 in Weight: 137 lb 3 oz BMI 23.5 BP 126/78 H Intake Visit Reasons: 2 wk TRH BS Cysto Chief Complaint: 2wk TRH BS Banking Paralegal Required: No Is patient in pain?: No [...] Cosigner Signature: Date (if applicable) CC: ~ [facility] Work Phone: Reason for referral (narrative)No reason for referral information availableWA[facility] Work Phone: Chief Complaint and Reason [...] [facility] Chief Complaint Admit Date [...] 1 unit PRBC's (2 units on hold) [facility] 2024 3:52pm ERAS, Lap Total Robotic Hysterectomy [...] 1 [facility], Lap Total Robotic Hysterectomy Yuri [...] Do you have a Healthcare Power of Storage Management Consultant? No August 30, 2024 2:49pm Advance Directive Response Recorded Date/ Time Do you have a Healthcare Power of Storage Management Consultant? No August 30, 2024 8:12pm Advance Directive Response Recorded Date/ Time Do you have a Healthcare Power of Storage Management Consultant? No August 30, 2024 8:12pm Do you have a Healthcare Power of Storage Management Consultant? No November 06, 2024 4:46pm Advance Directive Response Recorded Date/ Time Do you have a Healthcare Power of Storage Management Consultant? No August 30, 2024 8:12pm Do you have a Healthcare Power of Storage Management Consultant? No October 25, 2024 9:05am Do you have a Healthcare Power of Storage Management Consultant? No November 06, 2024 4:46pm Summary Purpose [...] 2024 End: January 19, 2024 Angelica Olmos CHEMICAL PROCESS ANALYST, CHEMICAL PROCESS ANALYST-C Attending Provider Active S tart: January 19, 2024 End: January 19, 2024 Angelica Olmos CHEMICAL PROCESS ANALYST, CHEMICAL PROCESS ANALYST-C Referring Provider Active S tart: January 19, [...] 30, 2024 End: August 30, 2024 Dr. Inocencoi Frye MD Referring Provider Active Start: August [...] 06, 2024 Dr. [facility] Active Start: November 06, 2024 [...] King DO Attending physician Active Start: October Dr. [...] section and content) DATE CREATED AUTHOR 12/31/2024 [facility] FOR RECORDS PERTAINING TO PATIENTS WHO ARE [...] BE BASED ON THE PRIMARY CLINICAL RECORDS. [employer] provides no warranty or guarantee of the accuracy or completeness of information in this document.
[2025-02-10 10:18] LABS: Hematocrit 39.4 % (37-47); Hemoglobin 12.6 g/dL (12.0-15.0); Immature Granulocytes Count 0.020 X10^3/uL (0.0-0.0); Mean Corp Hgb Conc 32.0 g/dL (32-36); Mean Corpuscular Volume 88.7 fL (81-99); Mean Platelet Vol. 12.5 fl (6.2-12.0); NRBC Flagged by Analyzer 0 % (0-5); Platelet Count 195 K/mm3 (150-450); RBC Distribution Width CV 15.4 % (11.6-14.6); RBC Distribution Width SD 50.4 fl (35.1-43.9); Red Blood Count 4.44 M/mm3 (4.2-5.4); White Blood Count 4.0 K/mm3 (4.4-11.0)
[2025-02-10 11:18] LABS: AST(SGOT) 16 U/L (<=31); Alanine Aminotransfer ALT/SGPT 8 U/L (<=34); Albumin, Serum 4.5 g/dL (3.5-5.0); Alkaline Phosphatase 63 U/L (35-104); Anion Gap 10 (5-15); BUN 14 mg/dL (4-19); BUN/Creat Ratio 16.3 RATIO (10-20); Calcium,Total 9.6 mg/dL (7.6-11.0); Carbon Dioxide 25.2 mmol/L (21.0-32.0); Chloride 105 mmol/L (98-108); Ferritin 44 ng/mL (22-378); Globulin 2.8 g/dL (2.2-4.2); Glucose 94 mg/dL (70-99); Iron 69 ug/dL (50-170); Iron Binding Capacity,Total 319 ug/dL (250-450); Iron Binding Capacity,Unsat 250 ug/dL (228-428); Potassium 5.1 mmol/L (3.3-5.1); Vitamin B12 303 pg/mL (180-914); Vitamin D,25 Hydroxy 38.9 ng/mL (30-100)
[2025-02-10 11:28] LABS: FOLATES,SERUM (FOLIC ACID) 11.70 ng/mL (4.60-34.80)
== END | disposition home or self-care (01) ==
LOC: MFPLAB 08:54
PROVIDERS: PCP Family Medicine; Visit Provider Family Medicine
DX: D50.9 Iron deficiency anemia, unspecified (principal)
CPT/HCPCS: 36415; 80053; 82306; 82607; 82728; 82746; 83540; 83550; 85025